=== PATIENT | male | born 1935 | race Caucasian/White ===

== ENCOUNTER → 2017-07-29 12:18 | Outpatient (CLI) | payer MEDICARE, BC, SELFPAY ==
--- NOTE | 2017-07-29 12:32 | RAD_ITS ---
STUDY: X-RAY - ABDOMEN/PELVIS REASON FOR EXAM: Male, 82 years old. 2 month history of mid abdominal pain. TECHNIQUE: Two AP supine views of the abdomen and pelvis. COMPARISON: None. FINDINGS: Normal visualized lung bases. There is a moderate amount of colonic fecal material. The visualized liver, spleen and kidneys are grossly normal in size and morphology. Normal soft tissue structures. Normal visualized osseous structures. RAD/Abdomen Single View IMPRESSION: Moderate amount of fecal material is seen in the colon. Electronically Signed: Abdoulaye Garcia MD at 13:01 EDT Tel [phone], Service support ,
== END ==
LOC: MTRAD 12:27 → HPRAD 12:28
PROVIDERS: Family Provider Internal Medicine; PCP Internal Medicine; Visit Provider Internal Medicine
DX: R10.9 Unspecified abdominal pain (principal)
CPT/HCPCS: 74018

== ENCOUNTER → 2017-10-07 06:11 | Outpatient (CLI) | payer MEDICARE, BC, SELFPAY ==
--- NOTE | 2017-10-07 06:32 | ECHOD_ITS ---
Reason For Study: CAD Procedure This was a 2D Doppler, Color Flow transthoracic echocardiogram. The exam was of adequate technical quality. Exam performed in department. Left Ventricle Normal left ventricle. Left ventricular systolic function is normal. The estimated ejection fraction is 55 %. There is evidence of diastolic dysfunction. No regional wall motion abnormalities noted. Right Ventricle Normal RV size. Normal systolic function. Atria Normal left atrium. Normal right atrium. No doppler evidence for ASD. Mitral Valve There is no mitral annular calcification. Normal mitral valve. Trivial mitral valve insufficiency. Tricuspid Valve Normal tricuspid valve. Trivial tricuspid valve insufficiency. Aortic Valve Trisinus/trileaflet aortic valve. Normal aortic valve. Pulmonic Valve The pulmonic valve is not well visualized. Mild (1+) pulmonic valve insufficiency. Great Vessels Normal sized aortic root. Pericardium/Pleural No pericardial effusion. MMode/2D Measurements & Calculations LVIDd: 4.7 cm IVSd: 1.1 cm Ao root diam: 3.4 cm LVIDs: 2.8 cm LVPWd: 0.98 cm LA dimension: 3.4 cm RVDd: 3.4 cm FS: 41.1 % LAV(MOD-bp): 42.9 ml LA A4 area: 16.0 cm2 RA A4 area: 14.7 cm2 LAV(MOD-bp) Indexed: 20.8 ml/m2 LAV(MOD-sp2): 43.3 ml LAV(MOD-sp4): 41.9 ml Doppler Measurements & Calculations MV E max germán: 81.8 cm/sec Lat Peak E' Germán: 4.9 cm/sec Med Peak E' Germán: 4.9 cm/sec MV A max germán: 94.6 cm/sec E/E' lat: 16.7 E/E' med: 16.7 MV E/A: 0.86 Ao V2 max: 101.8 cm/sec LV V1 max: 81.5 cm/sec PA V2 max: 91.3 cm/sec Ao max P.1 mmHg LV V1 max P.7 mmHg Interpretation Summary Left ventricular systolic function is normal. The estimated ejection fraction is 55 %. Trivial mitral valve insufficiency. Trivial tricuspid valve insufficiency. Mild (1+) pulmonic valve insufficiency. There is evidence of diastolic dysfunction. Ordering Physician: Samia Dominguez Referring Physician: Samia Dominguez Performed By: Saida Denise RDCS
--- NOTE | 2017-10-07 16:56 | STRESSREP ---
Stress Test Report Date: 04/16/2018 Procedure: Exercise tolerance test/imaging study Indications: Lightheadedness; CAD; PCI Consent: Per the patient Procedure: The patient exercised on a Raymond protocol for 6 minutes and 30 seconds completing Stage II and 30 seconds of Stage III achieving a peak heart rate of 122 bpm (88 % predicted maximal heart rate) with a peak blood pressure 166/72 mmHg and a peak MET capacity of 7 METs. The baseline ECG demonstrated normal sinus rhythm. The peak exercise ECG demonstrated somatic/motion artifact with no obvious ECG changes. There were no cardiac dysrhythmias pretest, during exercise, or recovery. The functional capacity was considered good. There was no complaint of chest discomfort during exercise or recovery. The examination was discontinued secondary to dyspnea. Impression: 1. Technically adequate (percent predicted maximal heart rate greater than 85%) exercise tolerance test 2. Peak exercise ECG demonstrated somatic/motion artifact with no obvious ECG changes 3. There were no cardiac dysrhythmias pretest, during exercise, or recovery. 4. Nuclear images pending Myocardial perfusion imaging study: Technique: The patient was injected with 14.1 mCi of technetium 99m Cardiolite and subsequently rest SPECT Cardiolite nuclear imaging was obtained in the horizontal long, vertical long, and short axis views. The patient exercised on a Raymond protocol for 6 minutes and 30 seconds completing Stage II and 30 seconds of Stage III achieving a peak heart rate of 122 bpm (88 % predicted maximal heart rate) with a peak blood pressure 166/72 mmHg and a peak MET capacity of 7 METs. The patient was injected with 44.5 mCi of technetium 99m Cardiolite and subsequently stress SPECT Cardiolite nuclear imaging was obtained in the horizontal long, vertical long, and short axis views. A gated Cardiolite study at peak stress was obtained. Interpretation: Rest and stress SPECT Cardiolite nuclear imaging status post realignment, normalization, and attenuation correction, demonstrates the appearance of relative uniform tracer uptake and myocardial perfusion appearing within normal limits. There is end systolic thickening and brightening. The gated Cardiolite study demonstrates myocardial thickening and inward wall motion. The reported LVEF is 70 %. Impression: 1. Rest and stress SPECT Cardiolite nuclear imaging demonstrate relative uniform tracer uptake and myocardial perfusion appearing within normal limits. 2. The gated Cardiolite study reports an LVEF of 70 %. This note was generated with [employer] software. It may contain incorrect words, spelling, and punctuation that were not noted in checking the note before signing.
--- NOTE | 2017-10-07 17:02 | STRESSREP_ITS ---
Stress Test Report Date: 04/16/2018 Procedure: Exercise tolerance test/imaging study Indications: Lightheadedness; CAD; PCI Consent: Per the patient Procedure: The patient exercised on a Raymond protocol for 6 minutes and 30 seconds completing Stage II and 30 seconds of Stage III achieving a peak heart rate of 122 bpm (88 % predicted maximal heart rate) with a peak blood pressure 166/72 mmHg and a peak MET capacity of 7 METs. The baseline ECG demonstrated normal sinus rhythm. The peak exercise ECG demonstrated somatic/motion artifact with no obvious ECG changes. There were no cardiac dysrhythmias pretest, during exercise, or recovery. The functional capacity was considered good. There was no complaint of chest discomfort during exercise or recovery. The examination was discontinued secondary to dyspnea. Impression: 1. Technically adequate (percent predicted maximal heart rate greater than 85% ) exercise tolerance test 2. Peak exercise ECG demonstrated somatic/motion artifact with no obvious ECG changes 3. There were no cardiac dysrhythmias pretest, during exercise, or recovery. 4. Nuclear images pending Myocardial perfusion imaging study: Technique: The patient was injected with 14.1 mCi of technetium 99m Cardiolite and subsequently rest SPECT Cardiolite nuclear imaging was obtained in the horizontal long, vertical long, and short axis views. The patient exercised on a Raymond protocol for 6 minutes and 30 seconds completing Stage II and 30 seconds of Stage III achieving a peak heart rate of 122 bpm (88 % predicted maximal heart rate) with a peak blood pressure 166/72 mmHg and a peak MET capacity of 7 METs. The patient was injected with 44.5 mCi of technetium 99m Cardiolite and subsequently stress SPECT Cardiolite nuclear imaging was obtained in the horizontal long, vertical long, and short axis views. A gated Cardiolite study at peak stress was obtained. Interpretation: Rest and stress SPECT Cardiolite nuclear imaging status post realignment, normalization, and attenuation correction, demonstrates the appearance of relative uniform tracer uptake and myocardial perfusion appearing within normal limits. There is end systolic thickening and brightening. The gated Cardiolite study demonstrates myocardial thickening and inward wall motion. The reported LVEF is 70 %. Impression: 1. Rest and stress SPECT Cardiolite nuclear imaging demonstrate relative uniform tracer uptake and myocardial perfusion appearing within normal limits. 2. The gated Cardiolite study reports an LVEF of 70 %. This note was generated with [employer] software. It may contain incorrect words, spelling, and punctuation that were not noted in checking the note before signing.
== END ==
PROVIDERS: Family Provider Internal Medicine; PCP Internal Medicine; Visit Provider Internal Medicine
DX: I25.10 Atherosclerotic heart disease of native coronary artery without angina pectoris (principal); R68.89 Other general symptoms and signs; R42 Dizziness and giddiness
CPT/HCPCS: 78452; 93017; 93306; A9500; A4216

== ENCOUNTER → 2017-10-21 10:53 | Outpatient (CLI) | payer MEDICARE, BC, SELFPAY ==
[2017-10-21 11:09] LABS: Absolute Neutrophil Count 3.1 X10^3/uL (2.0-7.7); Basophil# 0.01 X10^3/uL; Basophil% 0.2 % (0-1); Eosinophil# 0.13 X10^3/uL; Eosinophils% 2.6 % (0-5); Hematocrit 40.6 % (40-54); Hemoglobin 13.3 g/dl (13.0-16.5); Lymphocyte % 24.1 % (19-41); Mean Corp Hgb Conc 32.8 g/gl (32-36); Mean Corpuscular Hgb 29.2 pg (27.0-32.0); Mean Corpuscular Volume 89.2 fL (80-94); Mean Platelet Vol. 9.8 fl (6.2-12.0); Monocyte% 10.1 % (0-10); Neutrophil # 3.12 X10^3/uL (2.7-7.7); Neutrophil % 62.8 % (47-70); POSITIVE COUNT NO; POSITIVE DIFFERENTIAL NO; POSITIVE MORPHOLOGY NO; Platelet Count 162 K/mm3 (150-450); RBC Distribution Width CV 13.4 % (11.6-14.6); RBC Distribution Width SD 43.8 fl (35.1-43.9); Red Blood Count 4.55 M/mm3 (4.6-6.2)
[2017-10-21 11:10] LABS: Erythrocyte Sedimentation Rate 8 mm/hr (0-20)
[2017-10-21 11:26] LABS: ALB/GLOB Ratio 0.9 RATIO (0.9-2.4); AST(SGOT) 21 U/L (15-37); Alanine Aminotransfer ALT/SGPT 30 U/L (16-61); Albumin, Serum 3.5 g/dL (3.2-5.0); Alkaline Phosphatase 59 U/L (45-117); Anion Gap 9 (5-15); BUN 16 mg/dL (7-18); BUN/Creat Ratio 15.8 RATIO (10-20); Calcium,Total 8.7 mg/dL (8.5-10.1); Chloride 105 mmol/L (98-107); Creatinine, Serum 1.01 mg/dL (0.70-1.30); EST Glomerular Filtration Rate 75 mL/min (>60); Est Glom Filt Rate - Afr Amer 91 mL/min (>60); Globulin 3.8 g/dL (2.2-4.2); Glucose 78 mg/dL (74-106); Potassium 3.7 mmol/L (3.5-5.1); Protein, Total 7.3 g/dL (6.4-8.2); Sodium Level 144 mmol/L (136-145)
== END ==
PROVIDERS: Family Provider Internal Medicine; PCP Internal Medicine; Visit Provider Internal Medicine
DX: K57.92 Diverticulitis of intestine, part unspecified, without perforation or abscess without bleeding (principal)
CPT/HCPCS: 80053; 85025; 85652; 86140

== ENCOUNTER 2018-01-16 08:50 | Day surgery (SDC) | payer MEDICARE, BC, SELFPAY ==
[2018-01-16 09:18] VITALS: BP 130/73; PULSE 58; RESP 16; TEMP 36.2; O2SAT 100; BMI 30.3
[2018-01-16 10:47] VITALS: BP 107/55; BP 130/73; PULSE 55; RESP 14; TEMP 36.4; O2SAT 96
[2018-01-16 10:50] VITALS: BP 100/53; BP 130/73; PULSE 55; RESP 16; O2SAT 97
--- NOTE | 2018-01-16 10:50 | OP.ENDO_ITS ---
Patient Name: Moises Ahuja Procedure Date: 01/16/2018 10:15 AM Date of : 1935 Age: 82 Procedure: Colonoscopy Indications: Surveillance: Personal history of adenomatous polyps on last colonoscopy > 3 years ago, Incidental - Recurrent Clostridium difficile colitis, Incidental - Follow-up of diverticulitis Providers: Mehdi Foote MD Referring MD: Samia Dominguez Medicines: Monitored Anesthesia Care Patient Profile: Last Colonoscopy: more than 3 years ago. Complications: No immediate complications. Procedure: Pre-Anesthesia Assessment: - Prior to the procedure, a History and Physical was performed, and patient medications and allergies were reviewed. The patient's tolerance of previous anesthesia was also reviewed. The risks and benefits of the procedure and the sedation options and risks were discussed with the patient. All questions were answered, and informed consent was obtained. Prior Anticoagulants: The patient has taken aspirin, last dose was 5 days prior to procedure. After reviewing the risks and benefits, the patient was deemed in satisfactory condition to undergo the procedure. After I obtained informed consent, the scope was passed under direct vision. Throughout the procedure, the patient's blood pressure, pulse, and oxygen saturations were monitored continuously. The colonoscope was introduced through the anus and advanced to the cecum, identified by appendiceal orifice and ileocecal valve. The colonoscopy was performed without difficulty. The patient tolerated the procedure well. The quality of the bowel preparation was good. Scope In: 10:27:08 AM Scope Withdrawal Time 0 hours 6 minutes 59 seconds Scope Out: 10:41:16 AM Total Procedure Duration Time 0 hours 14 minutes 8 seconds Findings: Multiple small and large-mouthed diverticula were found in the sigmoid colon and descending colon. No additional abnormalities were found on retroflexion. Impression: - Diverticulosis in the sigmoid colon and in the descending colon. - No specimens collected. Recommendation: - Discharge patient to home. - Resume previous diet. - Continue present medications. - Resume aspirin at prior dose tomorrow. - No recommendation at this time regarding repeat colonoscopy due to age. Procedure Code(s): --- Professional --- 31761, PT, Colonoscopy, flexible; diagnostic, including collection of specimen(s) by brushing or washing, when performed (separate procedure) Diagnosis Code(s): --- Professional --- Z86.010, Personal history of colonic polyps K57.30, Diverticulosis of large intestine without perforation or abscess without bleeding CPT copyright 2017 [employer]. All rights reserved. The codes documented in this report are preliminary and upon wheel shop supervisor review may be revised to meet current compliance requirements. Mehdi Foote MD 01/16/2018 10:49:47 AM This report has been signed electronically. Number of Addenda: 0 Note Initiated On: 01/16/2018 10:15 AM
[2018-01-16 11:00] VITALS: BP 105/54; BP 130/73; PULSE 50; RESP 16; O2SAT 96
[2018-01-16 11:04] VITALS: BP 105/59; BP 130/73; PULSE 52; RESP 16; TEMP 36.4; O2SAT 97
[2018-01-16 11:27] VITALS: BP 130/73
== END 2018-01-16 11:38 | disposition home or self-care (01) ==
LOC: EN 08:50 → AC 08:51
PROVIDERS: Family Provider Internal Medicine; PCP Internal Medicine; Visit Provider Surgery
PROC: 0DJD8ZZ Inspection of Lower Intestinal Tract, Via Natural or Artificial Opening Endoscopic (ICD-10-PCS; CPT 45378; principal; 2018-01-16 09:55)
DX: Z12.11 Encounter for screening for malignant neoplasm of colon (principal); A04.71 Enterocolitis due to Clostridium difficile, recurrent; K57.30 Diverticulosis of large intestine without perforation or abscess without bleeding; I25.10 Atherosclerotic heart disease of native coronary artery without angina pectoris; I34.1 Nonrheumatic mitral (valve) prolapse; I10 Essential (primary) hypertension; E78.5 Hyperlipidemia, unspecified; K21.9 Gastro-esophageal reflux disease without esophagitis; F32.9 Major depressive disorder, single episode, unspecified; F41.9 Anxiety disorder, unspecified; Z79.82 Long term (current) use of aspirin; Z79.899 Other long term (current) drug therapy; Z86.010 Personal history of colon polyps; Z87.891 Personal history of nicotine dependence; Z80.0 Family history of malignant neoplasm of digestive organs
CPT/HCPCS: 45378; J7120

== ENCOUNTER 2018-03-03 13:00 | Outpatient (RCR) | payer MEDICARE, BC, SELFPAY ==
--- NOTE | 2018-02-17 11:43 | HP.PTEVAL_ITS ---
Patient's Visit Information ANTONETTE HARRIS is a 82 year old M referred to Physical Therapy by CORTES HILL with a diagnosis of c/s radiculopathy. Date of Evaluation: 02/17/18 Physical Therapist: Ashok Nolasco DPT, OC - Visit Plan Frequency: 2x /Week Duration: 2 Weeks Plan: 2x/week for two weeks per script for... 1. c/s retraction and postural exercises, progressing HEP. 2. STM to B UT,s tretch pecs. 3. Manual traction to tolerance. Monitor L tri adn bi weakness. - Subjective Subjective: Stenosis in back and neck. Has given him pain in center of base of neck. Sometimes radiates into L arm to elbow. this is insidious and lasts 30 seconds. Got it this morning putting tea kettle on stove. Neck hurts much of day 2-07/05. Goes up to 8/10 shooting pain with turning wrong. this has been going on for 6 months insidiously. Had MRI and it showed stenosis and narrwoing in the neck. Pinching on c5 nerve. Numbness in L hand quickly when arm hurts. Sleep is OK. Sleeps on his back. He doesn't let this hold him back, he hurts and keeps going. Basic ADLs are OK just painful. 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 Driving and turning head hurts but he can do it. - Pain neck Pain Intensity (Out of 10): 2 Pain Intensity Range: 2, 8 L UE Pain Intensity (Out of 10): 0 Pain Intensity Range: 0, 8 - Objective Sits with forward head and tight scap with tension. Scapula are protracted. UE AROM WFL to 130 elevation, ext rotation 60a nd IR full adn without pain, elevation hurts slightly L c/s. reflexes 2/3 bi and tri. Sensation WNL in UE to gross light touch. Strenght is at deficiti in L wrist flex and ext adn bi and tri 4-, others 4/5 in shoulder. + c/s compression test B. - HK and - neer. repeated protrusion increases L UE numbness adn worse pain to 3/10. repeated retraction NE. Trasnfers adn gait are normal and safe. Tender to palpation base of c/s in Upper traps B max. - Goals Goal 1:: Pain with ADLs is 90% better adn 1/10 at worse. Goal Time Frame: 2-4 Weeks Goal 2:: Patient I in appropriate posture and HEP to minimize future problems. Goal Time Frame: 2-4 Weeks - Rehabilitation Potential Physical Therapy Diagnosis: cervical stenosis adn radiculapathy Rehabilitation Potential: Fair - Anticipated Interventions Patient/Client Instruction: Educate patient on: Condition, Plan of Care For the Purpose of:: To decrease pain Therapeutic Exercise to Include: Strength training, Flexibilty training, Scapular Strength/Stabilization For the Purpose of:: To decrease pain, To improve nutrient delivery to tissue, To increase tolerance to activity/condition/position Manual Therapy Techniques to Include: Soft tissue mobilization Comment: B UT For the Purpose of:: To decrease pain, To improve nutrient delivery to tissue Thermo therapy (hot pack): Yes For the Purpose of:: To improve nutrient delivery to tissue Thank you for the opportunity to evaluate your patient. For Medicare and Medicare HMO plans, please review the plan of care and approve it. It will need to be FAXED BACK to us at [phone] for Medicare purposes. Please let me know if there are questions or concerns regarding this plan of care. Physician S ignature: Date:
--- NOTE | 2018-03-03 13:59 | HP.PTDCSUM ---
HP - PT D/C Summary It has been my pleasure to treat ANTONETTE HARRIS under orders from CORTES HILL, for the diagnosis of c/s radiculopathy for a total of 5 visit(s). Discharge Date: 03/03/18 Please see the following information for a summary of their discharge status. - Subjective Subjective: L trap still sore but much better overall. Remains 2/10 at most times. Head is moving better. Arm symptoms mostly sharp with position change and then gone. Will see dr. Fisher on for neck and shoulder pain. - Pain neck Pain Intensity (Out of 10): 2 L UE Pain Intensity (Out of 10): Unrated - Overall Improvement % Improvement: 40 - Objective Objective/Function: 50 R rot adn 50 L rot and 40 ext. 140 AROM L shoulder elevation, pain at end range actively and passively of ext rot, IR, adn elevation of shoulder. Makes me question shoulder degeneration as main cause of pain. Pt will continue HEP and go to orthopedic doctor on as directed. - Goals Goal 1:: Pain with ADLs is 90% better adn 1/10 at worse. Goal Progress: Progressing Goal 2:: Patient I in appropriate posture and HEP to minimize future problems. Goal Progress: Goal Met - Plan Plan: D/C - D/C Information Discharge Comments: Pt to go to ortho as directed by doctor for next step. may benefit from continued PT after shoulder is evaluated by ortho. If there are questions or concerns regarding this patient's physical therapy, please feel free to call me at [phone]. Thank you for the referral of this patient. Sincerely, Ashok Nolasco, DPT, OC
== END 2018-03-03 19:00 | disposition home or self-care (01) ==
LOC: PT 13:00
PROVIDERS: Family Provider Internal Medicine; PCP Internal Medicine
DX: M50.30 Other cervical disc degeneration, unspecified cervical region (principal); M48.02 Spinal stenosis, cervical region; M54.12 Radiculopathy, cervical region
CPT/HCPCS: 97110; 97140; 97162; 97530

== ENCOUNTER → 2018-03-11 08:45 | Outpatient (CLI) | payer MEDICARE, BC, SELFPAY ==
--- NOTE | 2018-03-11 09:00 | RAD_ITS ---
PROCEDURE: Fluoroscopic guided shoulder Injection DATE: March 11, 2018. INDICATION: Male, 83 years old. Chronic left shoulder pain. PHYSICIAN: Abdoulaye Garcia M.D. MEDICATIONS: 12 mg of betamethasone and 4 cc of 1% lidocaine. 2% Lidocaine administered subcutaneously for local anesthesia. ACCESS SITE: Left shoulder. NEEDLE: 22-gauge spinal needle. FLUOROSCOPY TIME (if supplied): (0:47) minutes/seconds FINDINGS: The risks, benefits, and alternatives to the procedure were explained to the patient. The specific risks of bleeding, infection, and neurovascular injury were detailed and accepted. Witnessed informed consent was obtained. A 22-gauge spinal needle was positioned under radiographic fluoroscopic localization. Approximately 2 cc of Isovue-300 instilled for localization purposes. Medication was then injected. The patient tolerated the procedure well without any immediate complications. The patient was placed supine with head elevated and returned to the floor in stable condition. RAD/Inj/Asp Reza Jt Should/Hip/Knee IMPRESSION: 1. Successful fluoroscopic guided left shoulder injection. Electronically Signed: Abdoulaye Garcia MD at 9:42 EST Tel [phone], Service support ,
== END ==
PROVIDERS: Family Provider Internal Medicine; PCP Internal Medicine; Visit Provider Specialist
DX: M19.012 Primary osteoarthritis, left shoulder (principal); G89.29 Other chronic pain
CPT/HCPCS: 20610; 77002; Q9967; J0702

== ENCOUNTER → 2018-03-24 09:46 | Outpatient (CLI) | payer MEDICARE, BC, SELFPAY ==
--- NOTE | 2018-03-24 09:55 | CDU_ITS ---
Reason For Study: carotid stenosis Rt. Velocities/BP Lt. Velocities/BP Prox CCA 119.0/14.9 cm/sec. Prox CCA 116.0/15.8 cm/sec. Mid CCA 120.0/19.6 cm/sec. Mid CCA 113.0/14.7 cm/sec. Dist CCA 86.4/18.1 cm/sec. Dist CCA 117.0/16.4 cm/sec. Prox ICA 61.6/15.2 cm/sec. Prox ICA 80.3/14.1 cm/sec. Mid ICA 149.0/34.4 cm/sec. Mid ICA 137.0/27.5 cm/sec. Dist ICA 152.0/35.4 cm/sec. Dist ICA 86.2/22.3 cm/sec. Rt. ICA/CCA = 152.0/120.0=1.3. Lt. ICA/CCA = 137.0/113.0=1.2. Prox ECA 111.0/10.2 cm/sec. Prox ECA 151.0/8.64 cm/sec. Rt. Vert. 46.0/11.4 cm/sec. Lt. Vert. 60.5/12.2 cm/sec. Right Extracranial There is intimal thickening but no significant atherosclerotic plaque noted in the right common carotid artery. There is intimal thickening but no significant atherosclerotic plaque noted in the right internal carotid artery. The right internal carotid artery is very tortuous. There is no significant atherosclerotic plaque noted in the right external carotid artery. Antegrade flow is noted in the right vertebral artery. Left Extracranial There is homogeneous, smooth atherosclerotic plaque noted in the left common carotid artery. There is heterogeneous, irregular atherosclerotic plaque noted in the left internal carotid artery. The tortuous nature of the left internal carotid artery may result in flow velocities overestimating the degree of stenosis. There is no significant atherosclerotic plaque noted in the left external carotid artery. Antegrade flow is noted in the left vertebral artery. Interpretation Summary Moderate (50-69%) stenosis right extracranial internal carotid. Moderate (50-69%) stenosis left extracranial internal carotid. Flow within the vertebral arteries is antegrade bilaterally. Ordering Physician: Samia Dominguez Referring Physician: Samia Dominguez Performed By: Simran Perales RDCS, RVT
--- OUTSIDE RECORDS SUMMARY | 2018-05-05 23:53 | XMS RPT_ITS | Continuity of Care Document ---
:1935 Author Organization [facility] Address [address] [place] [address] Phone Care Team Providers Name Role Phone Alberto HARRY, Samia Villalba Unavailable Claudia Dutton Unavailable Unavailable Julito HARRY, Dr. Jennings Unavailable [facility], Gustavo Mayo Unavailable Mehdi Foote Unavailable Dr. Gallo Fraser MD Unavailable ABDIEL Dutta Unavailable Unavailable Unavailable Unavailable Problems Name Dates Details Abnormality of globulin (R77.1, 790.6) Comments: globulin beta slightly elevated no mspike. marquez immuno good IGA up slightly but ill. Status: Active Arthritis (M19.90, 716.90) Status: Active BMI 31.0-31.9,adult (Z68.31, V85.31) Comments: 31.94 Status: Active BMI 32.0-32.9,adult (Z68.32, V85.32) Comments: 32.0 Status: Active BMI 32.0-32.9,adult (Z68.32, V85.32) Status: Active Carotid stenosis (I65.29, 433.10) Comments: <50% right falsely higher. 10-13, CTA neck 3-16, moderate 7-17 Status: Active Constipation (K59.00, 564.00) Comments: see retained stool in colon. now worse. with some abd pain will clean out Status: Active Coronary artery disease (I25.10, 414.00) Comments: stress 10-13 good. seesara horvath reviewed with patient specialist's note stable 6-18 done stress test sand echo good. feel better fatigue and exerc. 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 ballard not want to do surgery risky. mboic help pain. see Dr. kapoor ? related to vertigo repeat MRI 10-18 moderate stenosis C5-6 Status: Active Depression, unspecified depression type (F32.9, 311) Comments: right now unhapppy issue wtih strong personality. nitpick on him. communicate well with now and backingoff. and him not babysitting anymore and willbe hard on talk to he r about setting boundaries. still will have some depressed moods where not want anyone to bother him twice a week. use to love to read but not interested to do thing liked to do. will try to increase 1 1/2 lexapro not want to add wellbutrin or g to scounselor Status: Active Diarrhea (R19.7, 787.91) Status: Active Diverticulitis (K57.92, 562.11) Status: Active Elevated vitamin B12 level (R74.8, 790.99) Comments: ? inflammation had stomach pain better now. will recheck Status: Active Encounter for well adult exam with abnormal findings (Z00.01, V70.0) Comments: 4--18 Annual Medicare Exam [facility] 10-31- rectal , PSA 4-17 (will draw today) colonoscopy -18 good, all immunizations are up to date, last eye exam 2017 included glaucoma screening, unable to pass whisper test wears bilateral hearing aides, 6CIT=/28, PHQ-9=8 (mild),PHQ-9=/28 Status: Active Epididymitis (N45.1, 604.90) Comments: think possible infection very tender could be referred down from abdomen but the epididymis is very tender. same sexual partner Status: Active Esophagitis (K20.9, 530.10) Comments: seen on CT hiatal hernia on PPI had soem pain now gone. EGD done 3-17 good Status: Active Exercise intolerance (R68.89, 780.99) Comments: heydi heart Status: Active Fatigue (R53.83, 780.79) Comments: ishmael muñiz change in bbkler and off pravastatin. Status: Active Flu-like symptoms (R68.89, 780.99) Status: Active History of Clostridium difficile infection (Z86.19, V12.09) Comments: on probiotic and eating kefir Status: Active Hypertension, benign (I10, 401.1) Status: Active Impaired fasting glucose (R73.01, 790.21) Comments: stable hga1c 5.7 % talk about diet. Status: Active 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 (N52.9, 302.72) Comments: talk about viagra tell side effects and what to watch for. 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 6-14, 8-15, 6-16 stable no change not need to image anymore Status: Active Mild degeneration of cervical intervertebral disc (M50.30, 722.4) Comments: seen Dr. madsen. gabapentin cause hiccups so bad BP went up. refuse lyrica. att TCa if okay with Dr. horvath. brielle in past. saw Dr. kapoor not needs anything now doing well Status: Active Mitral valve prolapse (I34.1, 424.0) Status: Active Mixed hyperlipidemia (E78.2, 272.2) Comments: lipitor cause headache and head worms. with pravastatin andbut off it had calf cramps anyway.not able to tolerate increase. has been exerciseing. talk about fish oil. on fish oil in reli Status: Active Need for prophylactic vaccination and inoculation against influenza (Renamed from Need for immunization against influenza) (Z23, V04.81) Status: Active Obesity (E66.9, 278.00) Status: Active Obstructive sleep apnea, adult (G47.33, 327.23) Comments: on BIPAP Status: Active Orthostatic hypotension (I95.1, 458.0) Status: Active Rhinitis, chronic (J31.0, 472.0) Comments: think allergies ? 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 glucoffect help in am alos Status: Active Urgency of micturition (R39.15, 788.63) Comments: meds help Status: Active Vertigo (R42, 780.4) Comments: in past had BPPV and then now think repeat. if any neuro signs and symptoms then call seem like BPPV yesika exercises to do. hob up for 48 hours then can use bonine Status: Active Vitamin D deficiency, unspecified (E55.9, 268.9) 24-Dec-2011 Comments: on otc. Status: Active Medications Name Dates Details AmLODIPine Besylate 2.5 MG Oral Tablet 1 (one) Tablet daily for 0 days Quantity: 90 {Tablet} Refills: 3 Ordered:09-Feb-2018 Samia Dominguez MD, MD, Dana M Start : 09-Feb-2018 Active ASPIRIN LOW DOSE, 81MG (Oral Tablet) 1 AM for 0 days Refills: 0 Ordered:20-Mar-2009 ABDIEL DuttaActive Flonase Allergy Relief 50 MCG/ACT Nasal Suspension 1 (one) Suspension Suspension 2 sprays each nosstril daily for 0 days Quantity: 1 {Each} Refills: 0 Ordered:30-Sep-2016 ABDIEL Dutta Start : 30-Sep-2016 Active Lexapro 10 MG Oral Tablet 1 1/2 Tablet qd for 90 days Refills: 3 Ordered:09-Feb-2018 Samia Dominguez MD, MD, Dana M Start : 09-Feb-2018 Active Comments:ID# [id number] Meclizine HCl 12.5 MG Oral Tablet 1 (one) Tablet every 6 hours prn vertigo for 0 days Quantity: 30 {Tablet} Refills: 0 Ordered:17-Mar-2018 Samia Dominguez MD, MD, Dana M Start : 17-Mar-2018 Active Meloxicam 7.5 MG Oral Tablet 1 (one) Tablet qd for 0 days Quantity: 30 {Tablet} Refills: 3 Ordered:09-Feb-2018 Samia Dominguez MD, MD, Dana M Start : 09-Feb-2018 Active Pravastatin Sodium 20 MG Oral Tablet 1 (one) Tablet in am for 0 days Quantity: 90 {Tablet} Refills: 3 Ordered:09-Feb-2018 Samia Dominguez MD, MD, Dana M Start : 09-Feb-2018 Active Comments:myalgia PRILOSEC, 20MG (Oral Capsule Delayed Release) [address] qd for 0 days Quantity: 90 {Capsule_DR} Refills: 3 Ordered:14-Jul-2015 Samia Dominguez MD, MD, Dana M Start : 14-Jul-2015 Active Primidone 50 MG Oral Tablet 1/2 Tablet Tablet qhs for 0 days Quantity: 45 {Tablet} Refills: 3 Ordered:31-Oct-2017 Samia Dominguez MD, MD, Dana M Start : 31-Oct-2017 Active Reliv Active Vitamin D3 Super Strength 2000 UNIT Oral Capsule 1 (one) Capsule Capsule in am for 0 days Quantity: 30 {Tablet} Refills: 0 Ordered:07-Feb-2017 Winter Estevez Start : 22-Oct-2016 Active ALIGN, 4MG (Oral Capsule) 1 Capsule daily for 0 days Quantity: 30 {Capsule} Refills: 0 Ordered:17-Jun-2011 ABDIEL Dutta Start : 23-Apr-2011 End : 17-Jun-2011 Inactive Amitriptyline HCl 50 MG Oral Tablet 1 (one) Tablet at night for 0 days Quantity: 30 {Tablet} Refills: 0 Ordered:30-Jul-2017 Samia Dominguez MD, MD, Dana M Start : 30-Jul-2017 End : 30-Jul-2017 Inactive Comments:07-30-17 per over phone not taking ANTIVERT, 12.5MG (Oral Tablet) 1 Tablet 6-8hrs prn for dizziness for 0 days Quantity: 30 {Tablet} Refills: 0 Ordered:08-Feb-2013 ABDIEL Dutta Start : 11-Jan-2013 End : 08-Feb-2013 Inactive Ativan 0.5 MG Oral Tablet 1 (one) Tablet Tablet 1-2 every 8 hour prn for 0 days Quantity: 20 {Tablet} Refills: 0 Ordered:30-Jul-2017 ABDIEL Dutta Start : 26-Nov-2013 End : 30-Jul-2017 Inactive Comments:twenty Bactrim DS 800-160 MG Oral Tablet 1 Tablet bid for 10 days Quantity: 20 {Tablet} Refills: 0 Ordered:25-Apr-2017 Alberto HARRY, Samia Atkins MD, Samia Villalba Start : 25-Apr-2017 End : 05-May-2017 Inactive Comments:pt will call if needs void after 30 days. BENTYL, 10MG (Oral Capsule) 1 (one) Capsule Capsule tid prn for 0 days Quantity: 20 {Capsule} Refills: 0 Ordered:26-Nov-2013 ABDIEL Dutta Start : 03-Sep-2013 End : 26-Nov-2013 Inactive Comments:twenty Cipro 500 MG Oral Tablet Tablet BID for 0 days Quantity: 28 {Tablet} Refills: 0 Ordered:19-Sep-2017 ABDIEL Dutta Start : 30-Jul-2017 End : 19-Sep-2017 Inactive CORICIDIN HBP COUGH/COLD, 4-30MG (Oral Tablet) 1 (one) Tablet Tablet TAD for 0 days Quantity: 30 {Tablet} Refills: 0 Ordered:26-Nov-2013 ABDIEL Dutta Start : 30-Jul-2013 End : 26-Nov-2013 Inactive Cyclobenzaprine HCl 10 MG Oral Tablet 1 (one) Tablet Tablet every 8 hours prn for 0 days Quantity: 20 {Tablet} Refills: 0 Ordered:22-Jan-2016 ABDIEL Dutta Start : 10-Jan-2015 End : 22-Jan-2016 Inactive Comments:twenty ENABLEX, 7.5MG (Oral Tablet Extended Release 24 Hour) 1 Tablet ER 24HR daily for 0 days Quantity: 90 {Tablet_ER_24HR} Refills: 3 Ordered:09-Aug-2010 ABDIEL Dutta Start : 09-Aug-2010 End : 09-Aug-2010 Inactive HYDROCHLOROTHIAZIDE, 25MG (Oral Tablet) 1 (one) Tablet qd for 0 days Quantity: 90 {Tablet} Refills: 3 Ordered:08-Feb-2013 ABDIEL Dutta Start : 01-May-2012 End : 08-Feb-2013 Inactive Comments:ID# [id number] HYDROCODONE-ACETAMINOPHEN, 5-325MG (Oral Tablet) 1 (one) Tablet 1-2 q6hrs prn for 0 days Quantity: 30 {Tablet} Refills: 0 Ordered:26-Nov-2013 Alberto HARRY, Samia Atkins MD, Samia Villalba Start : 26-Nov-2013 End : 26-Nov-2013 Inactive KETOROLAC TROMETHAMINE, 10MG (Oral Tablet) 1 Tablet q6hrs for 2 days Quantity: 8 {Tablet} Refills: 0 Ordered:31-Dec-2011 Tashiamaggynichole BROWNAprana Start : 31-Dec-2011 End : 02-Jan-2012 Inactive Comments:with food and drink 1 full glass of water LevoFLOXacin 500 MG Oral Tablet 1 Tablet daily for 0 days Quantity: 10 {Tablet} Refills: 0 Ordered:31-Oct-2017 ABDIEL Dutta Start : 21-Oct-2017 End : 31-Oct-2017 Inactive LIDODERM, 5% (External Patch) Patch 12 hours on for 0 days Refills: 0 Ordered:11-May-2009 ABDIEL Dutta Start : 20-Mar-2009 Inactive LISINOPRIL, 10MG (Oral Tablet) 1 qd (10 MG) Inactive Comments:Dr. Horvath Losartan Potassium 50 MG Oral Tablet 1 (one) Tablet daily for 0 days Quantity: 90 {Tablet} Refills: 3 Ordered:19-Jan-2018 ABDIEL Dutta Start : 16-Oct-2017 End : 19-Jan-2018 Inactive LYRICA, 50MG (Oral Capsule) 1 Capsule bid for 0 days Quantity: 60 {Capsule} Refills: 1 Ordered:24-Mar-2012 ABDIEL Dutta Start : 24-Dec-2011 End : 24-Mar-2012 Inactive MEDROL (KAREN), 4MG (Oral Tablet) 1 Tablet Tablet uad for 0 days Quantity: 1 {Package} Refills: 0 Ordered:08-Dec-2014 ABDIEL Dutta Start : 26-Nov-2013 End : 08-Dec-2014 Inactive Metoprolol Tartrate 25 MG Oral Tablet 1/2 Tablet Tablet at night for 0 days Quantity: 30 {Tablet} Refills: 0 Ordered:09-Feb-2018 ABDIEL Dutta Start : 26-Sep-2017 End : 09-Feb-2018 Inactive MetroNIDAZOLE 500 MG Oral Tablet 1 (one) Tablet tid for 0 days Quantity: 30 {Tablet} Refills: 0 Ordered:31-Oct-2017 ABDIEL Dutta Start : 21-Oct-2017 End : 31-Oct-2017 Inactive MIRTAZAPINE, 30MG (Oral Tablet) 1 Tablet 1/2 a day for 1 week at night then one at night for 0 days Quantity: 30 {Tablet} Refills: 3 Ordered:16-Dec-2011 ABDIEL Dutta Start : 14-Oct-2011 End : 16-Dec-2011 Inactive Oxybutynin Chloride ER 10 MG Oral Tablet Extended Release 24 Hour 1 (one) Tablet Tablet in am prn for 0 days Quantity: 30 {Tablet} Refills: 0 Ordered:30-Jul-2017 ABDIEL Dutta Start : 06-Dec-2016 End : 30-Jul-2017 Inactive PREVACID, 30MG (Oral Capsule Delayed Release) 1 qd for 0 days Refills: 0 Ordered:17-Jun-2011 ABDIEL Dutta End : 17-Jun-2011 Inactive PROPRANOLOL HCL, 10MG (Oral Tablet) 1 Tablet bid for 0 days Quantity: 180 {Tablet} Refills: 3 Ordered:08-Feb-2013 ABDIEL Dutta Start : 08-Jun-2012 End : 08-Feb-2013 Inactive RAPAFLO, 8MG (Oral Capsule) 1 qd (8 MG) Inactive Tamiflu 75 MG Oral Capsule 1 (one) Capsule twice a day for 5 days Quantity: 10 {QS} Refills: 0 Ordered:25-Apr-2017 Mariaa Goetz Start : 25-Apr-2017 End : 30-Apr-2017 Inactive TRIAMCINOLONE ACETONIDE, 0.5% (External Cream) 1 Cream bid for 0 days Quantity: 1 {Cream} Refills: 0 Ordered:16-Dec-2011 ABDIEL Dutta Start : 29-Oct-2011 End : 16-Dec-2011 Inactive Viagra 100 MG Oral Tablet 1 (one) Tablet Tablet before intercourse prn for 0 days Quantity: 10 {Tablet} Refills: 2 Ordered:30-Jul-2017 ABDIEL Dutta Start : 22-Oct-2016 End : 30-Jul-2017 Inactive Zithromax Z-Karen 250 MG Oral Tablet uad Tablet until gone for 0 days Quantity: 1 {Package} Refills: 0 Ordered:25-Apr-2017 ABDIEL Dutta Start : 13-Feb-2017 End : 25-Apr-2017 Inactive CITALOPRAM HYDROBROMIDE, 20MG (Oral Tablet) 1 Tablet qd for 999 days Refills: 0 Ordered:02-Jul-2010 Samia Dominguez MD, MD, Dana M Start : 02-Jul-2010 End : 02-Jul-2010 Discontinued DETROL LA, 2MG (Oral Capsule Extended Release 24 Hour) 1 Capsule ER 24HR qd for 0 days Quantity: 90 {Capsule_ER_24HR} Refills: 3 Ordered:02-Jul-2010 Samia Dominguez MD, MD, Dana M Start : 02-Jul-2010 End : 02-Jul-2010 Discontinued INDERAL, 10MG (Oral Tablet) 1 Tablet BID for 0 days Quantity: 180 {Tablet} Refills: 3 Ordered:07-Aug-2009 ABDIEL Dutta Start : 07-Aug-2009 End : 17-Jun-2011 Discontinued Comments:This order discontinued per [facility]. LIPITOR, 10MG (Oral Tablet) 1 Tablet qhs for 0 days Quantity: 90 {Tablet} Refills: 3 Ordered:28-Jun-2015 Samia Dominguez MD, MD, Dana M Start : 28-Jun-2015 End : 14-Jul-2015 Discontinued Toprol XL 25 MG Oral Tablet Extended Release 24 Hour 1 (one) Tablet in am for 0 days Quantity: 30 {Tablet} Refills: 0 Ordered:26-Sep-2017 Samia Dominguez MD, MD, Dana M Start : 26-Sep-2017 End : 26-Sep-2017 Discontinued Allergies and Adverse Reactions Name Dates Details Cipro *FLUOROQUINOLONES* (Allergy) Status: Active Comments: stomach sick, levaquin okay KETOCONAZOLE (Powder) (Allergy) Status: Active Penicillins (Allergy) Status: Active PREDNISONE (PO Tab) (Allergy) Status: Active Comments: Jittery & anxious Past Medical History Name Dates Details Abdominal pain (R10.9, 789.00) Comments: think related to constipated. if not better with clean out then will need CT scan. Status: Resolved as of 30-Jul-2017 Abdominal pain, acute, left lower quadrant (R10.32, 789.04) Status: Inactive as of 16-Jul-2012 Abdominal pain, acute, left upper quadrant (R10.12, 789.02) Status: Resolved as of 24-Dec-2011 Abdominal pain, acute, right lower quadrant (R10.31, 789.03) Comments: did ct scan and labs. good. better now. ? muscle not see hernia. if keeps comes back then back to surgeon. Status: Inactive as of 28-Jun-2015 Abdominal pain, acute, right upper quadrant (Renamed from Acute abdominal pain in right upper quadrant) (R10.11, 789.01) Comments: seen Dr. perez had EGD better now iwht signs and symptoms not sure why ? sphincter of Oddi spasm. ? pinched nerve in back had CT scan abd good. Status: Resolved as of 17-Feb-2017 Abnormal carotid ultrasound (R93.8, 793.99) Comments: normal CTA of neck and head 07-11 Status: Inactive as of 22-Jan-[address] of brain (R90.89, 793.0) Comments: reveiwed with patient recent tests area could be tortorous vessel but did MRA with headaches. Status: Inactive as of 12-Nov-2012 Abnormal laboratory test (R89.9, 796.4) Comments: erlevate liver test the EMr willnot let me bring down so recheck Status: Resolved as of 30-Jul-2017 Abnormal lung sounds (R09.89, 786.7) Status: Inactive as of 07-Aug-2009 Acute prostatitis (N41.0, 601.0) 24-Dec-2011 Status: Resolved as of 24-Dec-2011 Acute sinusitis, unspecified (J01.90, 461.9) Status: Inactive as of 26-Nov-2013 Backache, unspecified (M54.9, 724.5) 24-Dec-2011 Comments: related to moving. 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 colitis colonscopy 08-09. Status: Inactive as of 28-Jun-2015 Dysuria (R30.0, 788.1) Status: Inactive as of 10-Oct-2008 Fever (R50.9, 780.60) Status: Inactive as of 07-Aug-2009 Flu-like symptoms (R68.89, 780.99) Comments: came back today with aches and feeling feverish gave him and the tamiflu Status: Resolved as of 30-Jul-2017 Forearm (881.00) Comments: rtworking in garden bit by but unknown worsening redness and tenderness Status: Inactive as of 16-Jul-2012 GERD (gastroesophageal reflux disease) (K21.9, 530.81) Comments: PPI better. had CP relate to this better now Status: Inactive as of 22-Jan-2016 Headache (R51, 784.0) Comments: on bipap for sleep. MRi adn MRA of head good. eye exam 01-[address] scan bad. started back of neck and work to top. swears meds take at night so will shift to am meds and if continue will follow up Status: Resolved as of 17-Feb-2017 Hypertension (I10, 401.9) Comments: stable Status: Inactive as of 08-Dec-2014 Impaired sensation (R20.1, 782.0) Comments: worm crawling feelign in head that bother so bad goes to bed. ? cpap ? from neck muscle tiwtch ? weird hallucination or seizure. he willask elizabeth davidson dr. refer to neuro. had mri 2012 and not other n euro signs and symptoms and hard to do MRI on himsee ENt,not hink inner ear. carotids show ? vertigo stenosis. workign up. Status: Inactive as of 22-Jan-2016 Inguinal hernia, left (K40.90, 550.90) Comments: at this point fatty and not alot pain and at his age not want surgery will watch and will callif severe pain Status: Inactive as of 22-Oct-2016 Nasal congestion (R09.81, 478.19) Status: Inactive as of 26-Nov-2013 Need for DTaP vaccine (Z23, V06.1) Status: Inactive as of 26-Nov-2013 Need for prophylactic vaccination and inoculation against influenza (Z23, V04.81) Status: Inactive as of 16-Jul-2012 Neoplasm of uncertain behavior of skin (D48.5, 238.2) Comments: ? melanoma insitu need shave biopsy Status: Inactive as of 10-Oct-2008 Other anxiety states (F41.1, 300.09) 06-Feb-2010 Comments: stable on the lexapro Status: Resolved as of 17-Feb-2017 Other specified viral infection, in conditions classified elsewhere and of unspecified site (B97.89, 079.89) Status: Inactive as of 26-Nov-2013 Pain in forearm, unspecified laterality (M79.639, 729.5) Comments: left lateral epicondylitisnsaids, ice forearm band not better inject Status: Inactive as of 11-May-2009 Perleche (K13.0, 686.8) Comments: monitstate hlep the percleche rash on left side buty still split area keep splitting on yawn. will do crazy glue aware not FDA a[pproved Status: Inactive as of 22-Oct-2016 Pharyngitis, acute (J02.9, 462) Comments: think vrial and in past bactrim help alot so called in and if not better by end of weekend then take bactrim Status: Resolved as of 29-Jul-2017 Pneumonia, organism unspecified (J18.9, 486) Status: Inactive as of 16-Jul-2012 PROSTATITIS NOS (601.9) Comments: ? per ER note, unable to take cipro Status: Resolved as of 24-Dec-2011 Rash (R21, 782.1) Comments: look like contact dermatitis or a scattered bites. 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 de luna cut muscle in bladder and cut down prostate. notice decrease in urination. may be few more months before really notice Status: Inactive as of 12-Nov-2012 Shoulder pain (M25.519, 719.41) Comments: had xray, pt, [facility], injection good for 6 weeks--now back talk about repeating vs surgery Status: Inactive as of 10-Oct-2008 Sinusitis, chronic (J32.9, 473.9) Status: Resolved as of 17-Feb-2017 Thrombopenia (D69.6, 287.5) Comments: little low normal Status: Resolved as of 31-Oct-2017 Unspecified Diagnosis Status: Inactive as of 26-Nov-2013 Unspecified Diagnosis Status: Inactive as of 16-Jul-2012 Unspecified Diagnosis Status: Inactive as of 26-Nov-2013 Unspecified hearing loss, unspecified ear (H91.90, 389.9) Status: Inactive as of 12-Nov-2012 Unspecified visual disturbance (H53.9, 368.9) Status: Inactive as of 24-Dec-2011 Urinary frequency (R35.0, 788.41) Comments: incontinence, urgency. enablex not help and headaches. Status: Inactive as of 16-Jul-2012 WM V790.00 (Renamed from [facility]) Comments: family of colon ca--gets scope every 5 years--3-09psa toney de luna Status: Inactive as of 11-Jan-2013 Procedures Procedure Dates Details Appendectomy Completed Bladder/prostate surgery Completed Comments: January 16 Dr. De Luna Cholecystectomy Completed COLONOSCOPY, NOS Completed Comments: 2002, 2013 HERNIA REPAIR, NOS Completed Comments: 1967 SHOULDER, NOS Completed Comments: Surgery 08-30 Vasectomy Completed Comments: 1967 Date Value Details 11-Mar-2018 Inj/Asp Reza Jt Should/Hip/Knee Result: Comments: See Note; NOTES: [facility] Imaging Services [address] [place] [address] Inj/Asp Reza Jt Should/Hip/Knee MR#: [id number] Acct: [id number] Name: MOISES AHUJA Rep # : [id number] : 1935 M 83 From: Abdoulaye Garcia MD PCP: Samia Dominguez MD Status: REG CLI Study: Inj/Asp Reza Jt Should/Hip/Knee Date of Exam: 03/11/18 Exam# [id number] Ordering Dr: Anmol Fisher MD PROCEDURE: Fluoroscopic guided shoulder Injection DATE: March 11, 2018. INDICATION: Male, 83 years old. Chronic left shoulder pain. PHYSICIAN: Abdoulaye Garcia M.D. MEDICATIONS: 12 mg of betamethasone and 4 cc of 1% lidocaine. 2% Lidocaine administered subcutaneously for local anesthesia. ACCESS SITE: Left shoulder. NEEDLE: 22-gauge spinal needle. FLUOROSCOPY TIME (if supplied): (0: 47) minutes/seconds FINDINGS: The risks, benefits, and alternatives to the procedure were explained to the patient. The specific risks of bleeding, infection, and n eurovascular injury were detailed and accepted. Witnessed informed consent was obtained. A 22-gauge spinal needle was positioned under radiographic fluoroscopic localization. Approximately 2 cc of Isov ue-300 instilled for localization purposes. Medication was then injected. The patient tolerated the procedure well without any immediate complications. The patient was placed supine with head elevated and returned to the floor in stable condition. RAD/Inj/Asp Reza Jt Should/Hip/Knee IMPRESSION: 1. Successful fluoroscopic guided left shoulder inj ection. Electronically Signed: Abdoulaye Garcia MD at 9:42 EST Tel [phone], Service support , CC: Samia Dominguez MD; Anmol Fisher MD Operational Review Sergeant: Signed 05-Mar-2018 PT D/C Summary (1) Result: Comments: See Note; NOTES: [facility] [place] [address] Fax REHABILITATION SERVICES DISCHAR GE SUMMARY MR#: [id number] Acct: [id number] Name: MOISES AHUJA Rep #: [id number] : 1935 83 From: Ashok Nolasco DPT, OCS, CSCS Referring DrKarl: Status: REG RCR Insurance: MEDICARE PART A B ANTH EM HP - PT D/C Summary It has been my pleasure to treat MOISES AHUJA under orders from CORTES BALLARD, for the diagnosis of c/s radiculopathy for a total of 5 visit(s). Discharge Date: 03/03/18 Darrell lieberman see the following information for a summary of their discharge status. - Subjective Subjective: L trap still sore but much better overall. Remains 2/10 at most times. Head is moving better. Arm symp toms mostly sharp with position change and then gone. Will see dr. Fisher on for neck and shoulder pain. - Pain neck Pain Intensity (Out of 10): 2 L UE Pain Intensity (Out of 10): Unrat ed - Overall Improvement % Improvement: 40 - Objective Objective/Function: 50 R rot adn 50 L rot and 40 ext. 140 AROM L shoulder elevation, pain at end range actively and passively of ext rot, IR, adn elevation of shoulder. Makes me question shoulder degeneration as main cause of pain. Pt will continue HEP and go to orthopedic doctor on as directed. - Goals Goal 1:: Pain with ADLs is 90% b santos adn 1/10 at worse. Goal Progress: Progressing Goal 2:: Patient I in appropriate posture and HEP to minimize future problems. Goal Progress: Goal Met - Plan Plan: D/C - D/C Information Discharge Comments: Pt to go to ortho as directed by doctor for next step. may benefit from continued PT after shoulder is evaluated by ortho. If there are questions or concerns regarding this patient's physical therapy, please feel free to call me at [phone]. Thank you for the referral of this patient. Sincerely, Ashok Nolasco, ESPERANZAT, OC <Electronically signed by Ashok Nolasco DPT, OCS, CSCS> 03/05/18 0911 CC: Samia Dominguez MD; OUT OF TOWN DOCTOR EBG Signed 18-Feb-2018 Inital Evaluation (1) - PT Result: Comments: See Note; NOTES: [facility] [address] [place], [place] [address] Fax REHABILITATION SERVICES INITIAL EVALUATION MR#: [id number] Acct: [id number] Name: MOISES AHUJA Rep #: [id number] : 1935 82 From: Ashok Nolasco DPT, OCS, CSCS Referring DrKarl: OUT OF TOWN DOCTOR Status: REG RCR Insurance: [place] [employer] PART A B ANTHEM Patient's Visit Information MOISES AHUJA is a 82 year old M referred to Physical Therapy by CORTES BALLARD with a diagnosis of c/s radiculopathy. Date of Evaluation: 02/17/18 ysical Therapist: Ashok Nolasco, EZE, OC - Visit Plan Frequency: 2x /Week Duration: 2 Weeks Plan: 2x/week for two weeks per script for... 1. c/s retraction and postural exercises, progressing HEP. 2. ST M to B UT,s tretch pecs. 3. Manual traction to tolerance. Monitor L tri adn bi weakness. - Subjective Subjective: Stenosis in back and neck. Has given him pain in center of base of neck. Sometimes radi ates into L arm to elbow. this is insidious and lasts 30 seconds. Got it this morning putting tea kettle on stove. Neck hurts much of day 2-3/10. Goes up to 8/10 shooting pain with turning wrong. this h as been going on for 6 months insidiously. Had MRI and it showed stenosis and narrwoing in the neck. Pinching on c5 nerve. Numbness in L hand quickly when arm hurts. Sleep is OK. Sleeps on his back. He doesn't let this hold him back, he hurts and keeps going. Basic ADLs are OK just painful. 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 Driving and turning head hurts but he can d o it. - Pain neck Pain Intensity (Out of 10): 2 Pain Intensity Range: 2, 8 L UE Pain Intensity (Out of 10): 0 Pain Intensity Range: 0, 8 - Objective Sits with forward head and tight scap with t ension. Scapula are protracted. UE AROM WFL to 130 elevation, ext rotation 60a nd IR full adn without pain, elevation hurts slightly L c/s. reflexes 2/3 bi and tri. Sensation WNL in UE to gross light to uch. Strenght is at deficiti in L wrist flex and ext adn bi and tri 4-, others 4/5 in shoulder. + c/s compression test B. - HK and - neer. repeated protrusion increases L UE numbness adn worse pain to 3 /10. repeated retraction NE. Trasnfers adn gait are normal and safe. Tender to palpation base of c/s in Upper traps B max. - Goals Goal 1:: Pain with ADLs is 90% better adn 1/10 at worse. Goal Time Fra me: 2-4 Weeks Goal 2:: Patient I in appropriate posture and HEP to minimize future problems. Goal Time Frame: 2-4 Weeks - Rehabilitation Potential Physical Therapy Diagnosis: cervical stenosis adn radi culapathy Rehabilitation Potential: Fair - Anticipated Interventions Patient/Client Instruction: Educate patient on: Condition, Plan of Care For the Purpose of:: To decrease pain Therapeutic Exercise t o Include: Strength training, Flexibilty training, Scapular Strength/Stabilization For the Purpose of:: To decrease pain, To improve nutrient delivery to tissue, To increase tolerance to activity/condit ion/position Manual Therapy Techniques to Include: Soft tissue mobilization Comment: B UT For the Purpose of:: To decrease pain, To improve nutrient delivery to tissue Thermo therapy (hot pack): Yes For the Purpose of:: To improve nutrient delivery to tissue Thank you for the opportunity to evaluate your patient. For Medicare and Medicare HMO plans, please review the plan of care and approve it. It will need to be FAXED BACK to us at [phone] for Medicare purposes. Please let me know if there are questions or concerns regarding this plan of care. Physician Signature: Date: <Electronically signed by Ashok Gaurav DPT, OCS, CSCS> 02/18/18 0710 CC: Samia Dominguez MD; OUT OF TOWN DOCTOR DT: 8 EBG Signed For Medicare only, by signing this I certify the plan of care. 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 Complications: No immediate complications. Procedure: Pre-Anesthesia Assessment: - Prior to the procedure, a History and Physical was performed, and patient medications and aller gies were reviewed. The patient's tolerance of previous anesthesia was also reviewed. The risks and benefits of the procedure and the sedation options and risks were discussed with the patient. All ques tions were answered, and informed consent was obtained. Prior Anticoagulants: The patient has taken aspirin, last dose was 5 days prior to procedure. After reviewing the risks and benefits, the patient was deemed in satisfactory condition to undergo the procedure. After I obtained informed consent, the scope was passed under direct vision. Throughout the procedure, the patient's blood pressure, pulse, and oxygen saturations were monitored continuously. The colonoscope was introduced through the anus and advanced to the cecum, identified by appendiceal orifice and ileocecal valve. The colonoscopy was performed without difficulty. The patient tolerated the procedure well. The quality of the bowel preparation was good. Scope In: 10:27:08 AM Scope Withdrawal Time 0 hours 6 minutes 59 seconds Scope Out : 10:41:16 AM Total Procedure Duration Time 0 hours 14 minutes 8 seconds Findings: Multiple small and large-mouthed diverticula were found in the sigmoid colon and descending colon. No additional abnorm alities were found on retroflexion. Impression: - Diverticulosis in the sigmoid colon and in the descending colon. - No specimens collected. Recommendation: - Discharge patient to home. - Resume previou s diet. - Continue present medications. - Resume aspirin at prior dose tomorrow. - No recommendation at this time regarding repeat colonoscopy due to age. Procedure Code(s): --- Professional --- 81423, PT, Colonoscopy, flexible; diagnostic, including collection of specimen(s) by brushing or washing, when performed (separate procedure) Diagnosis Code(s): --- Professional --- Z86.010, Personal history o f colonic polyps K57.30, Diverticulosis of large intestine without perforation or abscess without bleeding CPT copyright 2017 [employer] [employer]. All rights reserved. The codes documented in t his report are preliminary and upon auto body estimator review may be revised to meet current compliance requirements. Mehdi Foote MD 01/16/2018 10:49:47 AM This report has been signed electronically. Number o f Addenda: 0 Note Initiated On: 01/16/2018 10:15 AM 01/16/18 1049 Date Mehdi Foote MD Cosigner Signature: Date (if indicated) CC: Mehdi Foote MD; Samia Dominguez MD Date Dictated: 01/16/18 1015 Date Transcribed: Operational Review Sergeant: SCOT Signed 30-Dec-2017 Surgery Visit Report Result: Comments: See Note; NOTES: [facility] [address] [place], [place] [id number] OFFICE VISIT Date of Service: 12/30/17 MR#: [id number] Acct: [id number] Name: MOISES AHUJA Rep #: [id number] : 1935 Provider: Nay Quesada PA-C Age/Sex: 82/M Location: [facility] Status: Signed Intake Vital Signs12/30/17 Height 5 ft 7 in 12/30/17 Weight: 195 lb Intake Visit Reasons: UPDATE H AND P Home Visit Field Care Manager Required: No Is patient in pain?: No Allergies Penicillins Allergy (Verified 12/30/17 10:16) Swelling acetaminophen [From Vicodin] Adverse Reaction (Verified 12/30 10:16) Other gabapentin Adverse Reaction (Verified 12/30/17 10:16) Other hydrocodone bitartrate [From Vicodin] Adverse Reaction (Verified 12/30/17 10:16) Other ketoconazole Adverse Reaction (Verifie d 12/30/17 10:16) Nausea levofloxacin [From Levaquin] Adverse Reaction (Verified 12/30/17 10:16) Other prednisone Adverse Reaction (Verified 12/30/17 10:16) Other MYKEL Adverse Reaction (Uncoded 12/30/17 10:16) Other VICODIN Adverse Reaction (Uncoded 12/30/17 10:16) Other Medications Aspirin [Aspirin, Baby] 81 mg PO DAILY@0800 01/31/13 [History Confirmed 12/30/17] Escitalopram Oxalate [Lexapro] 10 m g PO QHS 01/31/13 [History Confirmed 12/30/17] Omeprazole [Prilosec] 20 mg PO DAILY 01/31/13 [History Confirmed 12/30/17] Metoprolol(XL)Succ [Toprol Xl (Beta Rena)] 50 mg PO QHS 11/20/13 [History Con firmed 12/30/17] Primidone [Mysoline] 12.5 mg PO DAILY 11/20/13 [History Confirmed 12/30/17] meloxicam 7.5 mg tablet 7.5 mg PO QDAY 10/22/17 [History Confirmed 12/30/17] pravastatin 40 mg tablet 40 mg P O QDAY 10/22/17 [History Confirmed 12/30/17] [facility] Medical History Nonrheumatic mitral valve prolapse (Chronic) Accelerated essential hypertension (Acu te) Hyperlipidemia (Chronic) Hypertension (Chronic) Coronary artery disease (Chronic) C. difficile colitis (Acute) Surgical History H/O colonoscopy (Re solved) Hx of hernia repair (Resolved) H/O vasectomy (Resolved) Hx of cholecystectomy (Resolved) Hx of appendectomy (Resolved) Family History Father CVA (cerebral vascular accident) Mother CAD (coronary artery disease) Diabetes Hypertension Brother Colon cancer Brother Hypertension Sister Myocardial infarction Son Myocardial infarction Socia l History Smoking Status: Former smoker HPI HPI HPI: Patient is an 82 y/o male I am following for screening colonoscopy. Patient had a bout of C Diff in October when he originally was evaluated by Dr. Foote. Patient notes he also developed a lactose intolerance which he is slowly adding dairy back into his diet. Patient notes his active colitis has resolved. He notes solid bowel movements. He d enies abdominal pain/discomfort, constipation, diarrhea, melena, bright red blood. He notes a brother who with colon cancer at age 64. He had a colonoscopy approximately 5 years ago. He note s a 6 pound intentional weight loss. He notes a cardiac history of mitral valve prolapse. His rag room supervisor is Dr. Horvath. Patient's previous history per Dr. Foote: MOISES AHUJA, is a 82 M who prese nts to the office today for colonoscopy. The patient reports that he had a colonoscopy in July 2013. A tubular adenoma was found. He was recommended to have repeat colonoscopy in 5 years. He is also re covering from C. difficile colitis. He reports he was having diarrhea but now his stools are starting to firm up. He still has some mild abdominal cramping. He was unsure if this was also related to div erticulitis and he has had a few bouts of diverticulitis recently. He is currently having no blood in his stool. ROS General General: Yes fatigue; no weight change Musc Musculoskeletal: Yes back pro blems and arthritis Cardio Cardiovascular: No murmur, pacemaker, heart disease, atrial fibrillation, high blood pressure, heart attack, heart stent, palpitations, shortness of breat with exertion or dionicio st pain Psych Psychiatric: Yes anxiety Resp Respiratory: No shortness of breath, Yes sleep apnea, No cough, No COPD, No asthma, No emphysema, No wheezing Gastro Gastrointestinal: No abdominal pain, No n ausea or vomiting, Yes diarrhea, No constipation, No blood in stool, Yes acid reflux, Yes hemorrhoids, No ulcers, Yes gallbladder problem, No black,tarry stools Giovani Hematologic: Yes blood thinners Ex am Const General: cooperative, healthy appearing, comfortable, no acute distress HENMT Head: normal to inspection Eyes General: appearance normal, both eyes and all related structures Neck Neck mass: No Resp Effort AND Inspection: normal respiratory effort Auscultation: clear to auscultation bilaterally Cardio Rate: regular rate Rhythm: regular rhythm Heart Sounds: no murmurs GI Inspection: normal to inspection Palpation: soft Auscultation: normal bowel sounds Skin General: no rashes or lesions noted Neuro General: no focal motor deficits Extrem General: normal to inspection Psych Appearance: grossl y normal Affect: normal affect Assessment AND Plan Problems 1. Family history of colon cancer Z80.[address] Foote will plan to perform a colonoscopy. Procedure details, risks and benefits were reviewed with the patient. Patient has had the opportunity to ask and have questions answered. Patient verbally understands and agrees with the plan. Patient will hold his aspirin for 5 days. Bowel prep instructions were reviewed with the patient. Coding Level of Care Code No Charge Diagnoses Family history of colon cancer Z80.0 Update H AND P 12/30/17 1043 <Electronically signed by Jaja Quesada PA-C> Date aNy Quesada PA-C Cosigner Signature: Date (if applicable) CC: 05-Nov-2017 Surgery Visit Report Result: Comments: See Note; NOTES: [facility] [address] [place] [address] OFFICE VISIT Date of Service: 11/05/17 MR#: [id number] Acct: [id number] Name: MOISES AHUJA Rep #: [id number] : 1935 Provider: Mehdi Foote MD Age/Sex: 82/M Location: [facility] Status: Signed Intake Vital Signs11/05/17 Height 5 ft 7 in 11/05/17 Weight: 201 lb 11/05/17 Bod y Mass Index (BMI) 31.4 Intake Visit Reasons: C-Scope Screening Home Visit Field Care Manager Required: No Is patient in pain?: No Allergies Penicillins Allergy (Verified 11/05/17 10:28) Swelling acetaminophen [From V icodin] Adverse Reaction (Verified 11/05/17 10:28) Other gabapentin Adverse Reaction (Verified 11/05/17 10:28) Other hydrocodone bitartrate [From Vicodin] Adverse Reaction (Verified 11/05/17 10:28) Othe r ketoconazole Adverse Reaction (Verified 11/05/17 10:28) Nausea levofloxacin [From Levaquin] Adverse Reaction (Verified 11/05/17 10:28) Other prednisone Adverse Reaction (Verified 11/05/17 10:28) Other MYKEL Adverse Reaction (Uncoded 04/20/15 22:47) Other VICODIN Adverse Reaction (Uncoded 04/20/15 22:47) Other Medications Aspirin [Aspirin, Baby] 81 mg PO DAILY@0800 01/31/13 [History Confirmed 11/05] Escitalopram Oxalate [Lexapro] 10 mg PO QHS 01/31/13 [History Confirmed 11/05/17] Omeprazole [Prilosec] 20 mg PO DAILY 01/31/13 [History Confirmed 11/05/17] Metoprolol(XL)Succ [Toprol Xl (Beta Bloc ker)] 50 mg PO QHS 11/20/13 [History Confirmed 11/05/17] Primidone [Mysoline] 12.5 mg PO DAILY 11/20/13 [History Confirmed 11/05/17] meloxicam 7.5 mg tablet 7.5 mg PO QDAY 10/22/17 [History Confirmed ] pravastatin 40 mg tablet 40 mg PO QDAY 10/22/17 [History Confirmed 11/05/17] PFS Medical History Nonrheumatic mitral valve prolapse (Chronic) Ac celerated essential hypertension (Acute) Hyperlipidemia (Chronic) Hypertension (Chronic) Coronary artery disease (Chronic) C. difficile colitis (Acute) Surgical History H/O colonoscopy (Resolved) Hx of hernia repair (Resolved) H/O vasectomy (Resolved) Hx of cholecystectomy (Resolved) Hx of appendectomy (Resolved) Family History (Reviewed 11/05/17 @ 10: 27 by Jessica Richmond) Father CVA (cerebral vascular accident) Mother CAD (coronary artery disease) Diabetes Hypertension Brother Colon cancer Brother Hypertension Sister Myocardial infarction So n Myocardial infarction Social History Smoking Status: Former smoker HPI HPI HPI: MOISES AHUJA, is a 82 M who presents to the office today for colonoscopy. The patient reports that he had a colon oscopy in July 2013. A tubular adenoma was found. He was recommended to have repeat colonoscopy in 5 years. He is also recovering from C. difficile colitis. He reports he was having diarrhea but now hi s stools are starting to firm up. He still has some mild abdominal cramping. He was unsure if this was also related to diverticulitis and he has had a few bouts of diverticulitis recently. He is current ly having no blood in his stool. ROS General General: Yes fatigue; no weight change Musc Musculoskeletal: Yes back problems and arthritis Cardio Cardiovascular: No murmur, pacemaker, heart disease, at rial fibrillation, high blood pressure, heart attack, heart stent, palpitations, shortness of breat with exertion or chest pain Psych Psychiatric: Yes anxiety Resp Respiratory: No shortness of breath, Y es sleep apnea, No cough, No COPD, No asthma, No emphysema, No wheezing Gastro Gastrointestinal: No abdominal pain, No nausea or vomiting, Yes diarrhea, No constipation, No blood in stool, Yes acid refl ux, Yes hemorrhoids, No ulcers, Yes gallbladder problem, No black,tarry stools Giovani Hematologic: Yes blood thinners Exam Const General: cooperative Orientation: alert, awake, oriented x3 Resp Ausculta tion: clear to auscultation bilaterally Cardio Rate: regular rate Rhythm: regular rhythm Heart Sounds: no murmurs GI Inspection: non-distended Palpation: soft, nontender Assessment AND Plan Problems 1 . History of adenomatous polyp of colon Z86.010 2. Colitis K52.9 Plan 1. Patient is currently recovering from C. difficile colitis. He may have also had recent bouts of diverticulitis. The patient had a colonoscopy in 2013 and had an adenomatous polyp and was recommended to follow- up for repeat colonoscopy in 3-5 years. 2. I explained endoscopy in detail to the patient. I explained the risks includi ng but not limited to stroke or heart attack with anesthesia, perforation of the GI tract, bleeding, infection. I explained that any of these could necessitate further emergency surgery. The patient und erstands and all questions were answered sufficiently. The patient wishes to proceed with procedure. 3. I have asked the patient to hold his aspirin 5 days before the procedure. 4. As the patient is c urrently recovering from active colitis I will plan for colonoscopy in December. Mehdi Foote MD Pager: [facility] [address] [place] [address], [address] [place] [address] Office: Orders Orders: Coding Level of Care Code Off vis,new,level 3 Diagnoses History of adenomatous polyp of colon Z86.010 Colitis K52.9 03/15 1050 <Electronically signed by Mehdi Foote MD> Date Mehdi Foote MD Cosigner Signature: Date (if applicable) CC: Samia Dominguez MD 24-Oct-2017 Cardiology Visit Report Result: Comments: See Note; NOTES: [facility] [address] [place] [address] OFFICE VISIT Date of Service: 10/22/17 MR#: [id number] Acct: [id number] Name: MOISES AHUJA Rep #: [id number] : 1935 Provider: Edelmira Zayas Age/Sex: 82/M Location: [facility] [place] [facility] Status: Signed HPI HPI Details: MOISES AHUJA, is a 82 M who presents to the office today for a cardiovascul ar follow-up. He has a history of hypertension, hyperlipidemia and mitral valve prolapse. Pt has been having issues with lightheadedness. This has since resolved. PCP had obtained a stress/echo and car otid. He has been having issues with his abdomen. He did see his PCP for this, he was started on antibiotics. He does not have any chest discomfort/heaviness/tightness. His exercise tolerance is stabl e for his age. He does not have any worsening symptoms of shortness of breath. He denies any PND. He does not have any orthopnea. He does not have any symptoms of congestive heart failure. He does not h ave any palpitations that he is aware of. He does not have any lightheadedness or dizziness. He does not have any near-syncope or syncope. He does not have any lower extremity edema. He does not have an y symptoms of claudication. Intake Vital Signs10/22/17 Height 5 ft 7 in 10/22/17 Weight: 201 lb 10/22/17 Body Mass Index (BMI) 31.4 10/22/17 Blood Pressure 128/54 10/22/17 Blood Pressure Location Lt b rachial Intake Visit Reasons: 1 Y FU Home Visit Field Care Manager Required: No Accompanied by: Allergies Penicillins Allergy (Verified 10/22/17 09:45) Swelling acetaminophen [From Vicodin] Adverse Reaction (Veri fied 10/22/17 09:45) Other gabapentin Adverse Reaction (Verified 10/22/17 09:45) Other hydrocodone bitartrate [From Vicodin] Adverse Reaction (Verified 10/22/17 09:45) Other ketoconazole Adverse Reactio n (Verified 10/22/17 09:45) Nausea levofloxacin [From Levaquin] Adverse Reaction (Verified 10/22/17 09:45) Other prednisone Adverse Reaction (Verified 10/22/17 09:45) Other MYKEL Adverse Reaction (Uncode d 04/20/15 22:47) Other VICODIN Adverse Reaction (Uncoded 04/20/15 22:47) Other Medications Aspirin [Aspirin, Baby] 81 mg PO DAILY@0800 01/31/13 [History Confirmed 10/22/17] Escitalopram Oxalate [Serafin apro] 10 mg PO QHS 01/31/13 [History Confirmed 10/22/17] Omeprazole [Prilosec] 20 mg PO DAILY 01/31/13 [History Confirmed 10/22/17] Metoprolol(XL)Succ [Toprol Xl (Beta Rena)] 50 mg PO QHS 11/20/13 [H istory Confirmed 10/22/17] Primidone [Mysoline] 12.5 mg PO DAILY 11/20/13 [History Confirmed 10/22/17] meloxicam 7.5 mg tablet 7.5 mg PO QDAY 10/22/17 [History Confirmed 10/22/17] pravastatin 40 mg tabl et 40 mg PO QDAY 10/22/17 [History Confirmed 10/22/17] Ejection fraction %: 55 to 59 PFSH Medical History Nonrheumatic mitral valve prolapse (Chronic) Accelerated essential hypertension (Acute) Hype rlipidemia (Chronic) Hypertension (Chronic) Coronary artery disease (Chronic) Surgical History H/O colonoscopy (Resolved) Hx of hernia repair (Resolved) H/O vasectomy (Resolved) Hx of cholecystectomy (Resolved) Hx of appendectomy (Resolved) Family History Father CVA (cerebral vascular accident) Mother CAD (coronar y artery disease) Diabetes Hypertension Brother Colon cancer Brother Hypertension Sister Myocardial infarction Son Myocardial infarction Social History Smoking Status: Former smoker ROS Const Const: Negative for weakness, fatigue, fever(s) or headache(s) Eyes Eyes: Negative for blind spots, loss of peripheral vision or transient loss of vision ENT ENT: Negative for headache(s), dizzine ss, tinnitus or Nosebleed/epistaxis Cardio Chest Pain: No Palpitations: No Edema: None Muscle aches with walking: None Resp Respiratory: Negative for SOB with activity, SOB at rest, SOB orthopnea\SOB ly ing down or Cough GI GI: Negative nausea, vomiting, heartburn or vomiting blood/hematemesis : Negative for hematuria Musc Musc: Negative for muscle aches/ myalgia Neuro Neuro: Negative for weakness , headache(s), dizziness, near syncope, syncope, lightheadedness or orthostatic symptoms Giovani Hematologic/Lymphatic: Negative for easy bleeding Endo Endo: Negative for fatigue Cardiology Exam Const Ap pearance: cooperative, no acute distress and well developed Orientation: alert, awake and oriented x3 Head Head: normocephalic and atraumatic Mouth: moist mucous membranes Eyes General: appearance cintia l, both eyes and all related structures Conjunctivae: conjunctivae normal Pupils: PERRL EOM: EOM intact bilaterally Neck Neck: normal visual inspection, no lymphadenopathy and no JVD Carotids: Negative bruit Neck Mass: Negative Neck mass Chest Chest inspection: normal inspection of the chest and symmetric chest movement Auscultation: Bilateral: Clear to Auscultation Cardio Palpation: normal PMI Rate: regular rate Rhythm: regular rhythm Heart sounds: S1 normal and S2 normal; negative rub, gallop or murmur GI GI: normal to inspection, soft, no hepatosplenomegaly and bowel sounds present; negative tend er Neuro General: alert, awake, oriented x3, CN's II-XI intact bilaterally and moves all extremities Extremities Pulses: Normal: Right Posterior Tibial Pulse, Left Posterior Tibial Pulse, Right Radial P ulse, Left Radial Pulse Lower Extremity Edema: None: Bilateral Psych Psychological: normal affect Supplemental Info Stress test in 2018 demonstrated no evidence of ischemia at a high workload. Echoca rdiogram in 2018 demonstrated Left ventricular systolic function is normal. The estimated ejection fraction is 55 %. Trivial mitral valve insufficiency. Trivial tricuspid valve insufficiency. Mild (1+) pulmonic valve insufficiency. There is evidence of diastolic dysfunction. Carotid ultrasound in 2017 demonstrated moderate disease on the right mild on the left. Assessment AND Plan 1. Essential hype rtension I10 Plan - HUANG Valenzuela Blood pressure is well controlled on current medications, we do not recommend any changes at this time. 2. Pure hypercholesterolemia E78.00; E78.0 J[place] - HUANG Abdullahi Managed by primary care doctor. Have asked for copy of labs for continuity of care. 3. Nonrheumatic mitral valve prolapse I34.1 Plan - HUANG Valenzuela Stable, will cat nue to monitor by history, exam and echocardiograms as deemed appropriate. Plan Detail Other Medications Discontinued: Additional Comments - HUANG Valenzuela The above patient was discussed wi Dr. Horvath, he agrees with plan of care. Thank you for allowing us to participate in patient's plan of care, if you have any questions please do not hesitate to call. This note was generated using a voice recognition system and there may be incorrect words, spelling or punctuation errors that were not noted when reviewing the office note prior to saving. 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) Coding Level of Ca re Code Off vis,est,level 3 Diagnoses Essential hypertension I10 Hypertension type: essential hypertension Pure hypercholesterolemia E78.00; E78.0 Hyperlipidemia type: pure hypercholesterolemia Nonrheu matic mitral valve prolapse I34.1 Coding Level of Care Code Off vis,est,level 3 Diagnoses Essential hypertension I10 Hypertension type: essential hypertension Pure hypercholesterolemia E78.00; E78.0 Hyperlipidemia type: pure hypercholesterolemia Nonrheumatic mitral valve prolapse I34.1 10/22/17 1122 <Electronically signed by Edelmira Zayas PA> Date Edelmira ENCINAS 10/24/17 1613<Electronically signed by Horacio Horavth MD> Cosigner Signature: Date (if applicable) Horacio Horvath MD CC: Samia Dominguez MD 07-Oct-2017 Stress Report Result: Comments: See Note; NOTES: [facility] Cardi[facility] Services [address] [place] [address] MR#: [id number] Acct: [id number] Name: MOISES AHUJA Rep #: [id number] : [birth year] 82 From: Tacho Rolle MD Primary Care: Samia Dominguez MD Status: REG CLI Ordering Dr: Sex: Deejay Huang Stress Test Report Date: 04/16/2018 Procedure: Exercise tolerance test/imaging study Indicatio ns: Lightheadedness; CAD; PCI Consent: Per the patient Procedure: The patient exercised on a Raymond protocol for 6 minutes and 30 seconds completing Stage II and 30 seconds of Stage III achieving a pe ak heart rate of 122 bpm (88 % predicted maximal heart rate) with a peak blood pressure 166/72 mmHg and a peak MET capacity of 7 METs. The baseline ECG demonstrated normal sinus rhythm. The peak exerci se ECG demonstrated somatic/motion artifact with no obvious ECG changes. There were no cardiac dysrhythmias pretest, during exercise, or recovery. The functional capacity was considered good. There w as no complaint of chest discomfort during exercise or recovery. The examination was discontinued secondary to dyspnea. Impression: 1. Technically adequate (percent predicted maximal heart rate great er than 85%) exercise tolerance test 2. Peak exercise ECG demonstrated somatic/motion artifact with no obvious ECG changes 3. There were no cardiac dysrhythmias pretest, during exercise, or recovery. 4. Nuclear images pending Myocardial perfusion imaging study: Technique: The patient was injected with 14.1 mCi of technetium 99m Cardiolite and subsequently rest SPECT Cardiolite nuclear imaging was o btained in the horizontal long, vertical long, and short axis views. The patient exercised on a Raymond protocol for 6 minutes and 30 seconds completing Stage II and 30 seconds of Stage III achieving a pe ak heart rate of 122 bpm (88 % predicted maximal heart rate) with a peak blood pressure 166/72 mmHg and a peak MET capacity of 7 METs. The patient was injected with 44.5 mCi of technetium 99m Cardiolite and subsequently stress SPECT Cardiolite nuclear imaging was obtained in the horizontal long, vertical long, and short axis views. A gated Cardiolite study at peak stress was obtained. Interpretation: Rest and stress SPECT Cardiolite nuclear imaging status post realignment, normalization, and attenuation correction, demonstrates the appearance of relative uniform tracer uptake and myocardial perfus ion appearing within normal limits. There is end systolic thickening and brightening. The gated Cardiolite study demonstrates myocardial thickening and inward wall motion. The reported LVEF is 70 %. Im pression: 1. Rest and stress SPECT Cardiolite nuclear imaging demonstrate relative uniform tracer uptake and myocardial perfusion appearing within normal limits. 2. The gated Cardiolite study reports a n LVEF of 70 %. This note was generated with [employer] software. It may contain incorrect words, spelling, and punctuation that were not noted in checking the note before signing. 10/07/17 17 02 <Electronically signed by Tacho Rolle MD> Date Tacho Rolle MD CC: Samia Dominguez MD Date Dictated: 10/07/171655 Date Transcribed: 10/07/171655 Operational Review Sergeant: PM Signed 07-Oct-2017 Echocardiogram Complete Result: Comments: See Note; NOTES: [facility] Cardi[facility] Services [address] [place] [address] Echo Complete 10/07/17 0858 MR#: [id number] Acct: [id number] Name: MOISES AHUJA ep #: [id number] : 1935 82 From: Tacho Rolle MD Attending Dr: Samia Dominguez MD Status: REG CLI Ordering Dr: Samia Dominguez MD Date: 10/07/17 Location: [facility] Sex: M C Admitted: Reason For Praneeth dy: CAD Procedure This was a 2D Doppler, Color Flow transthoracic echocardiogram. The exam was of adequate technical quality. Exam performed in department. Left Ventricle Normal left ventricle. Left v entricular systolic function is normal. The estimated ejection fraction is 55 %. There is evidence of diastolic dysfunction. No regional wall motion abnormalities noted. Right Ventricle Normal RV size. Normal systolic function. Atria Normal left atrium. Normal right atrium. No doppler evidence for ASD. Mitral Valve There is no mitral annular calcification. Normal mitral valve. Trivial mitral valve insufficiency. Tricuspid Valve Normal tricuspid valve. Trivial tricuspid valve insufficiency. Aortic Valve Trisinus/trileaflet aortic valve. Normal aortic valve. Pulmonic Valve The pulmonic valve is n ot well visualized. Mild (1+) pulmonic valve insufficiency. Great Vessels Normal sized aortic root. Pericardium/Pleural No pericardial effusion. MMode/2D Measurements AND Calculations LVIDd: 4.7 cm I VSd: 1.1 cm Ao root diam: 3.4 cm LVIDs: 2.8 cm LVPWd: 0.98 cm LA dimension: 3.4 cm RVDd: 3.4 cm FS: 41.1 % LAV(MOD-bp): 42.9 ml LA A4 area: 16.0 cm2 RA A4 area: 14.7 cm2 LAV(MOD-bp) Indexed: 20.8 ml/m2 LAV(MOD-sp2): 43.3 ml LAV(MOD-sp4): 41.9 ml Doppler Measurements AND Calculations MV E max jo: 81.8 cm/sec Lat Peak E' Jo: 4.9 cm/sec Med Peak E' Jo: 4.9 cm/sec MV A max jo: 94.6 cm/sec E/E' lat: 16.7 E/E' med: 16.7 MV E/A: 0.86 Ao V2 max: 101.8 cm/sec LV V1 max: 81.5 cm/sec PA V2 max: 91.3 cm/sec Ao max P.1 mmHg LV V1 max P.7 mmHg Interpretation Summary Left ventricular systolic function is normal. The estimated ejection fra ction is 55 %. Trivial mitral valve insufficiency. Trivial tricuspid valve insufficiency. Mild (1+) pulmonic valve insufficiency. There is evidence of diastolic dysfunction. Ordering Physician: Samia Dominguez Referring Physician: Samia Dominguez Performed By: Saida Denise KOFI Electronically s igned by: Tacho Rolle MD on 10/07/2017 03:05 PM 10/07/17 1505 Date Tacho Rolle MD CC: Samia Dominguez MD Date Dictated: 10/07/17 0858 Date Trans cribed: 10/07/17 1505 Operational Review Sergeant: Signed 29-Jul-2017 Abdomen Single View Result: Comments: See Note; NOTES: [facility] Imaging Services [address] [place] [id number] Abdomen Single View MR#: [id number] Acct: [id number] Name: MOISES AHUJA Rep #: [id number] : 1935 82 From: Abdoulaye Garcia MD PCP: Samia Dominguez MD Status: REG CLI Study: Abdomen Single View Date of Exam: 07/29/17 Exam# [id number] Ordering Dr: Samia Dominguez MD STUDY: X-RAY - A BDOMEN/PELVIS REASON FOR EXAM: Male, 82 years old. 2 month history of mid abdominal pain. TECHNIQUE: Two AP supine views of the abdomen and pelvis. COMPARISON: None. __ FINDINGS: Normal visualized lung bases. There is a moderate amount of colonic fecal material. The visualized liver, spleen and kidneys are grossly normal in size and morphology. Normal soft tissu e structures. Normal visualized osseous structures. RAD/Abdomen Single View IMPRESSION: Moderate amount of fecal material is seen in the colon. Electronically Signed: Abdoulaye Garcia MD at 13:01 EDT Tel [phone], Service support , CC: Samia Dominguez MD Operational Review Sergeant: Signed 12-May-2017 PT D/C Summary (1) Result: Comments: See Note; NOTES: [facility] [address] [place] [address] Fax REHABILITATION SERVICES DISCHAR GE SUMMARY MR#: [id number] Acct: [id number] Name: MOISES AHUJA Rep #: [id number] : 1935 82 From: aHng Waller PT, ATC Referring Dr.: Pavel Madsen MD Status: REG RCR Insurance: MEDICARE PART A B ANTHEM HP - PT D/C Summary It has been my pleasure to treat MOISES AHUJA under orders from Pavel Madsen, for the diagnosis of L shoulder impingement syndrome for a total of 4 visit(s). Di Date: Please see the following information for a summary of their discharge status. - Subjective Subjective: Pt reports no pain this morning - Pain L shoulder Pain Intensity (Out of 10): 0 - Objective Objective/Function: L shoulder pain 0/10. L shoulder ROM: flex= 140, abd= 120, ER= 45, IR WNL. L shoulder MMT: 5/5 throughout. Pt is I with HEP - Goals Goal 1:: Decrease L shoulder pain x 50% to aid with IADL's Goal Progress: Goal Met Goal 2:: Increase L shoulder flex and abd ROM x 30 degrees to aid with overhead lifting Goal Progress: Goal Met Goal 3:: Increase L shoulder strength x 1 grade to aid with IADL's Goal Progress: Goal Met Goal 4:: I with HEP Goal Progress: Goal Met - Plan Plan: Discharge - D/C Information If there are questions or concerns regarding this patient's physi kylie therapy, please feel free to call me at [phone]. Thank you for the referral of this patient. Sincerely, Hang Waller, PT, <Electronically signed by Hang Waller PT, ATC&#62 ; 05/12/17 1002 CC: Samia Dominguez MD; Pavel Madsen MD [facility] Signed 09-Apr-2017 Inital Evaluation (1) - PT Result: Comments: See Note; NOTES: [facility] [address] [place], [place] [address] Fax REHABILITATION SERVICES INITIAL EVALUATION MR#: [id number] Acct: [id number] Name: MOISES AHUJA Rep #: [id number] : 1935 82 From: Hang Waller PT, ATC Referring Dr.: Pavel Madsen MD Status: REG RCR Insurance: MEDICARE PART A B ANTHEM Patient's Visit Information MOISES AHUJA is a 82 year old M referred to Physical Therapy by Pavel Madsen with a diagnosis of L shoulder impingement syndrome. Date of Evaluation: 1 06/10/16 Physical Therapist: Hang Waller PT, - Visit Plan Frequency: 2-3x /Week Duration: 4-6 Weeks Plan: L shoulder strengthening (rot cuff), scap stab ex's, UBE, and HEP. US/CP for pain - Subje ctive Subjective: Pt reports 3 weeks ago, he had his L arm on the bed while bending over to reach something on the ground with his R UE when he experienced a stabbing pain in his L shoulder. Pt reports his pain has been pretty severe since. Pt notes he is limited with reaching over his head to put stuff away in the cabinets. Pt did have L shoulder arthroscopy in 2008 secondary to L shoulder OA. Pt rep orts his L UE goes numb on him and gets cold when he rides the stationary bike. No sleep diff secondary to pain. Pt is R hand dominant. Pt notes resting his L UE usually helps the pain to go away. Pt no maricruz he does have cervical stenosis, and so he always has a little bit of neck pain. 3/10 pain at rest, 10/10 pain at worst (reaching for coffee cup). Pt has had an x-ray, which revealed minor OA. - Robb n L shoulder Pain Intensity (Out of 10): 3 Pain Intensity Range: 10 - Objective Neuro: B UE sensation was WNL to light touch. B bicepital reflex= 2/3. Palpation: pain throughout the distribution of the supraspinatus muscle. No obvious deformity. ROM: R shoulder flex= 140, abd= 115, ER= 50, IR WNL; L shoulder flex= 115, abd= 105, ER= 30, IR WNL. MMT: B shoulders are 5/5 with the exception of R ER= 4/5. Special testing: Pos empty can test - Goals Goal 1:: Decrease L shoulder pain x 50% to aid with IADL's Goal Time Frame: 4-6 Weeks Goal 2:: Increase L shoulder flex and abd ROM x 30 degrees to aid with overhead lifting Goal Time Frame: 4-6 Weeks Goal 3:: Increase L shoulder strength x 1 grade to aid with IADL's Goal Time Frame: 4-6 Weeks Goal 4:: I with HEP Goal Time Frame: 4-6 Weeks - Rehabilit ation Potential Physical Therapy Diagnosis: L shoulder pain, weakness, and limited ROM secondary to impingement syndrome Rehabilitation Potential: Good - Anticipated Interventions Patient/Client Instru ction: Educate patient on: Condition, Plan of Care For the Purpose of:: To improve self management Therapeutic Exercise to Include: Strength training, Postural training, Active ROM, Scapular Strength/St abilization For the Purpose of:: To decrease pain, To increase ROM, To improve muscle performance and motor function Cryotherapy (ice pack, ice massage): Yes Ultrasound (thermal/non thermal): Yes For th e Purpose of:: To decrease pain Thank you for the opportunity to evaluate your patient. For Medicare and Medicare HMO plans, please review the plan of care and approve it. It will need to be FAXED BACK to us at [phone] for Medicare purposes. Please let me know if there are questions or concerns regarding this plan of care. Physician Signature: ____Date: <Electronically signed by Hang Waller PT, ATC> 04/09/17 0758 CC: Samia Dominguez MD; Pavel Madsen MD [facility] Signed For Medicare only , by signing this I certify the plan of care. Physicians Signature Date 05-Nov-2016 Carotid Duplex Ultrasound Result: Comments: See Note; NOTES: [facility] Cardi[facility] Services [address] [place] [address] Carotid Duplex Ultrasound 11/01/16 0857 MR#: [id number] Acct: [id number] Name: MOISES HOWARD Rep #: [id number] : 1935 81 From: John Owens MD Attending Dr: Samia Dominguez MD Status: REG CLI Ordering Dr: Samia Dominguez MD Date: 11/01/16 Location: [facility] Sex: M C Admitted: Re ason For Study: Carotid Stenosis Rt. Velocities/BP Lt. Velocities/BP Prox CCA 94/14 cm/sec. Prox CCA 100/13 cm/sec. Mid CCA 90/16 cm/sec. Mid CCA 106/15 cm/sec. Dist CCA 83/13 cm/sec. Dist CCA 113/16 c m/sec. Prox ICA 108/32 cm/sec. Prox ICA 102/25 cm/sec. Mid ICA 160/39 cm/sec. Mid ICA 117/29 cm/sec. Dist ICA 92/27 cm/sec. Dist ICA 108/26 cm/sec. Rt. ICA/CCA = 1.77. Lt. ICA/CCA = 1.10. Prox ECA 118/1 cm/sec. Prox ECA 91/3 cm/sec. Rt. Vert. 41/12 cm/sec. Lt. Vert. 42/8 cm/sec. Right Extracranial There is intimal thickening but no significant atherosclerotic plaque noted in the right common carotid artery. There is intimal thickening but no significant atherosclerotic plaque noted in the right internal carotid artery. The tortuous nature of the right internal carotid artery may result in flow [place] overestimating the degree of stenosis. There is intimal thickening but no significant atherosclerotic plaque noted in the right external carotid artery. Antegrade flow is noted in the right verte bral artery. Left Extracranial There is intimal thickening but no significant atherosclerotic plaque noted in the left common carotid artery. There is heterogeneous, smooth atherosclerotic plaque noted in the left internal carotid artery. The left internal carotid artery is very tortuous. There is intimal thickening but no significant atherosclerotic plaque noted in the left external carotid artery. Antegrade flow is noted in the left vertebral artery. Procedure Carotid Duplex 634[address]. Exam performed in department. 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 Mild (<50%) stenosis left extracranial internal carotid. Flow within the vertebral arteries is antegrade bilaterally. Ordering Physician: Samia Dominguez Referring Physician: Samia Dominguez Performed By: Edyta Aden, RALPH, RVT 11/05/162013 Date John Owens MD CC: Samia Dominguez MD Date Dictated: 11/01/16 0857 Date Transcribed: 11/05/162013 Operational Review Sergeant: Signed 24-Jun-2016 Abdomen/Pelvis WITH Contrast Result: Comments: See Note; NOTES: [facility] Imaging Services [address] [place] [address] Verdana 4d Abdomen/Pelvis WITH Contrast MR#: [id number] Acct: [id number] Name: JOSEPHINE AHUJA Rep #: [id number] : 1935 M 81 From: Rubi Burkett MD PCP: Samia Dominguez MD Status: REG CLI Study: Abdomen/Pelvis WITH Contrast Date of Exam: 06/24/16 Exam# [id number] Ordering Dr: Samia Dominguez MD STUDY: CT ABDOMEN AND PELVIS WITH CONTRAST REASON FOR EXAM: Male, 81 years old. Right lower quadrant pain radiating into back, intermittent one week low back pain 2 months history of prolapsed zuleyma wel. RADIATION DOSAGE (If Supplied By Facility): CTDIvol = ( 17.34 ) mGy, DLP = ( 917.86 ) mGycm TECHNIQUE: Transaxial images were obtained from the dome of the diaphragm to the symphysis pubis with o ral contrast. 100ml ml of Isovue 300 contrast was administered. Sagittal and coronal images were reconstructed. Individualized dose optimization techniques were used for this CT. COMPARISON: CT scan a bdomen and pelvis December 08, 2014, October 11, 2015 CT scan abdomen, December 31, 2011 CT scan abdomen and pelvis FINDINGS: There are few areas of probable air trapping in the left lung base. There is borderline cardiac enlargement and a trace pericardial effusion. There is a 4 mm cystic structure in the right hepatic lobe. There are surgical clips in the gallbladder fossa consistent with a prior cholecystectomy. Normal spleen. There is a focal lobulation in the anterior aspect of the pancreas with a peripheral calcification which is stable since prior study dating back to December 31, 2011 Normal bilateral adrenal glands. There is a stable well-circumscribed hypoechoic cystic structure in the superior pole of the right kidney measuring 3.7 x 4.2 cm. There is a lower pole cyst measuring 3.2 x 2.3 cm. There is a cyst in the medial aspect of the left kidney measuring 2.6 x 3.2 cm. There is a 5 mm cyst in the upper pole of the left kidney. These appear stable si nce the prior study. There is a mildly thick-walled appearance of the distal esophagus and a small hiatal hernia. Normal small intestine. There is abundant stool in the colon from the cecum to the rect um. There are several radiopaque densities in the cecum which appear to be undigested tablets or calcifications/fecaliths similar to prior study December 31, 2011. There are a few diverticula present wi thout evidence of diverticulitis. The appendix is not visualized and may have been removed. The aorta is partially calcified. Normal inferior vena cava. Normal retroperitoneum. The bladder is mostly d ecompressed. The prostate is borderline enlarged and partially calcified. There is a left-sided inguinal hernia containing adipose tissue. There are diffuse degenerative changes of the visualized lumba r spine. There is a bony mineralization is somewhat inhomogeneous. There is multilevel disc space narrowing endplate sclerosis and a few areas of Schmorl's nodes. At the level of L2-L3 there is severe n eural foramina narrowing and severe central stenosis. At L3-L4 there is a broad disc bulge with severe neural foraminal narrowing and moderate central stenosis. At L4-L5 there is a broad disc bulge mode rate to severe neural foramina narrowing mild to moderate central stenosis. At L5-S1 there is a broad disc bulge with minimal neural foraminal narrowing. There is facet arthropathy. CT/Abdomen/Pelvis WITH Contrast IMPRESSION: Moderate Constipation. There are several either fecaliths or undigested tablets within the cecum which are similar to jonathan or studies. The appendix is not visualized and may have been removed. Diverticulosis without evidence of diverticulitis. Bilateral benign-appearing stable renal cysts. Mild thickening of the distal esophagus small hiatal hernia consider esophagitis. Borderline mildly inhomogeneous enlarged prostate recommended follow-up PSA laboratory values and clinical exam. Fatty left inguinal hernia Degener ative change thoracolumbar spine. Electronically Signed: Rubi Burkett MD at 14:51 EST Tel , Service support [phone], CC: Samia Dominguez MD Operational Review Sergeant: Signed 24-Jun-2016 L/S Spine Min 4 Views Result: Comments: See Note; NOTES: [facility] Imaging Services [address] [place] [address] Verdana 4d L/S Spine Min 4 Views MR#: [id number] Acct: [id number] Name: MOISES AHUJA Rep #: [id number] : 1935 M 81 From: Dionisio Brown MD PCP: Samia Dominguez MD Status: REG CLI Study: L/S Spine Min 4 Views Date of Exam: 06/24/16 Exam# [id number] Ordering Dr: Samia Dominguez MD [facility] DY: X-RAY - LUMBAR SPINE REASON FOR EXAM: Male, 81 years old. Low back pain TECHNIQUE: 5 view(s) of the lumbar spine were obtained. COMPARISON: None FINDINGS: Nor mal lumbar lordosis. There is no substantial scoliosis. There is a normal alignment of the vertebrae. There is multilevel endplate spondylosis of the lumbar vertebrae. There is multi-level degenerative disc disease with multi-level disc space narrowing. Moderate narrowing seen at L2-L3 and L5-S1. There is atherosclerotic calcification of the abdominal aorta without a demonstrated aneurysm. RAD/L/S Spine Min 4 Views IMPRESSION: Mild spondylosis. Mild to moderate multilevel degenerative disc disease. Electronically Signed: Deejay Cortez at 16:43 EST , Service support [phone], CC: Samia Dominguez MD Operational Review Sergeant: Signed 11-Oct-2015 Abdomen WITH IV Contrast Result: Comments: See Note; NOTES: [facility] Imaging Services [address] [place], [place] [id number] Verdana 4d Abdomen WITH IV Contrast MR#: [id number] Acct: [id number] Name: MOSIES ANDERSON Rep #: [id number] : 1935 80 From: Abdoulaye Garcia MD PCP: Samia Dominguez MD Status: REG CLI Study: Abdomen WITH IV Contrast Date of Exam: 10/11/15 Exam# [id number] Ordering D r: Samia Dominguez MD STUDY: CT ABDOMEN WITH CONTRAST REASON FOR EXAM: Male, 80 years old. Followup examination for pancreatic abnormality. RADIATION DOSAGE (If Supplied By Facility): CTDIvol = ( 16.53 ) mGy, DLP = ( 677.35 ) mGycm TECHNIQUE: Transaxial images were obtained post I.V. administration of 100CC ml of Isovue 300 contrast, and with oral contrast. Sagittal and coronal images were reconstructed. Individualized dose optimization techniques were used for this CT. COMPARISON: Comparison is made with prior study dated December 08, 2014. FINDI NGS: Stable mild increased linear markings at the lung bases. Coronary artery calcification. Minimal pericardial thickening along the posterior aspect of the cardiac contour. There is hepatomegaly with diffuse hepatic enlargement. Stable minimal intrahepatic ductal dilatation. The patient is status post cholecystectomy. Normal spleen. Stable 2.1 cm x 2.9 cm isodense nodule along the anterior a spect of the body of the pancreas. Punctate calcifications are seen along its periphery. Normal bilateral adrenal glands. Stable 3.6 cm cyst in the upper pole of the right kidney. Stable 2.[address] in the lower pole. Stable 3 cm cyst in the anterior mid aspect of the left kidney. There is a small hiatal hernia. Normal small intestine. Normal colon. There is non-visualization of the appendix . There is diffuse atherosclerotic calcification of the abdominal aorta, without a demonstrated aneurysm. Normal inferior vena cava. Normal retroperitoneum. Normal abdominal wall. There are diffus e degenerative changes of the visualized lumbar spine. IMPRESSION: Status post cholecystectomy and appendectomy. Stable central intrahepatic ductal dilatation. Stable appearance of the 2.1 cm x 2.9 cm hypodense nodule arising from the anterior aspect of the body of the pancreas. Electronically Signed: Abdoulaye Garcia MD at 9:34 EDT Tel [phone], Service support [phone], CC: Samia Dominguez MD Operational Review Sergeant: Signed 05-Jul-2015 CTA Head W/WO Contrast Result: Comments: See Note; NOTES: [facility] Imaging Services [address] [place] [id number] Verdana 4d CTA Head W/WO Contrast MR#: [id number] Acct: [id number] Name: MOISES HOWARD Rep #: [id number] : 1935 M 80 From: Abdoulaye Garcia MD PCP: Samia Dominguez MD Status: REG CLI Study: CTA Head W/WO Contrast Date of Exam: 07/05/15 Exam# [id number] Ordering Dr: Samia Carreon MD STUDY: CTA OF THE BRAIN REASON FOR EXAM: Male, 80 years old. Abnormal carotid ultrasound. RADIATION DOSAGE (If Supplied By Facility): CTDIvol = ( 63.89 ) mGy, DLP = ( 2413.41 ) mGycm TECHNIQUE: CT angiography was performed with a multi-detector CT scanner. Data acquisition was obtained from the skull base through the vertex following intravenous administration of 100 ml of Isovue 370. MIP images were reconstructed from the axial data set. Post-processing of the angiographic images was performed, with multiplanar reformation and 3D reconstruction. COMPARISON: None. FINDINGS: Normal bilateral petrous carotid arteries. There is calcified plaque formation of the right cavernous carotid artery, without a cross-sectional luminal stenosis. There is calcified plaque formation of the left cavernous carotid artery, without a cross-sectional luminal stenosis. Normal right A1 segments of the anterior cerebral artery. Normal left A1 segments of the anterior cerebral artery. Normal intact anterior communicating artery (ACOM). Normal bilateral A2 segments of the anterior cerebral arteries. Normal right M1 and M2 segments of t he middle cerebral arteries, with a normal M1 bifurcation. Normal left M1 and M2 segments of the middle cerebral arteries, with a normal M1 bifurcation. Normal right posterior communicating artery ( PCOM). Normal left posterior communicating artery (PCOM). Normal bilateral vertebral arteries. Normal basilar artery with a normal basilar bifurcation. The visualized bilateral superior cerebellar ( SCA) arteries are normal. Normal bilateral P1, P2 and visualized P3 segments of the posterior cerebral arteries. There is no demonstrated aneurysm of the [place] of [place]. There is no demonstrate d abnormality of the visualized brain. IMPRESSION: Normal [place] of [place] without a demonstrated aneurysm or hemodynamically significant stenosis. Electronica lly Signed: Abdoulaye Garcia MD at 8:07 EST Tel [phone], Service support [phone], CC: Samia Dominguez MD Operational Review Sergeant: Signed 05-Jul-2015 CTA Neck W/WO Contrast Result: Comments: See Note; NOTES: [facility] Imaging Services [address] [place] [address] Verdana 4d CTA Neck W/WO Contrast MR#: [id number] Acct: [id number] Name: MOISES HOWARD Rep #: [id number] : 1935 M 80 From: Abdoulaye Garcia MD PCP: Samia Dominguez MD Status: REG CLI Study: CTA Neck W/WO Contrast Date of Exam: 07/05/15 Exam# [id number] Ordering Dr: Samia Carreon MD STUDY: CTA NECK WITH CONTRAST REASON FOR EXAM: Male, 80 years old. Abnormal carotid ultrasound examination. RADIATION DOSAGE (If Supplied By Facility): CTDIvol = ( 63.89 ) mGy, DLP = ( 2413.41 ) mGycm TECHNIQUE: CT angiography with multi-detector data acquisition was performed from the aortic arch to the skull base following intravenous administration of 100 ml of Isovue 370 contrast. MIP images were reconstructed from the axial data set. Post-processing of the angiographic images was performed, with multiplanar reformation and 3D reconstruction. COMPARISON: None. FINDINGS: AORTIC ARCH: There is atherosclerotic calcific plaque formation of the aortic arch and great vessels arising from the aortic arch, without a hemodynam ically significant stenosis. There is a normal origin of the brachiocephalic, left common carotid, and left subclavian arteries. RIGHT CAROTID ARTERIES: Normal right common carotid artery (CCA). No rmal right common carotid bulb. Normal origin of the right internal carotid (ICA) artery without a hemodynamically significant stenosis. Normal visualized cervical portion of the right internal car otid artery. Normal origin of the right external carotid artery (ECA). LEFT CAROTID ARTERIES: Normal left common carotid artery (CCA). Normal left common carotid bulb. Normal origin of the left i nternal carotid (ICA) artery without a hemodynamically significant stenosis. Normal visualized cervical portion of the left internal carotid artery. Normal origin of the left external carotid artery (ECA). VERTEBRAL ARTERIES: Focal nonstenotic plaque is seen at the origin of the right humeral artery. IMPRESSION: Normal bilateral cervical carotid and verte bral arteries. Electronically Signed: Abdoulaye Garcia MD at 8:06 EST Tel [phone], Service support [phone], CC: Samia Dominguez MD Operational Review Sergeant: Signed 09-Jun-2015 Carotid Duplex Ultrasound Result: Comments: See Note; NOTES: [facility] Cardiovascular Services [address] [place] [id number] Carotid Duplex Ultrasound 06/09/15 1012 MR#: [id number] Acct: [id number] Name: MOISES AHUJA Rep #: [id number] : 1935 80 From: Low Hernandez MD Attending Dr: Samia Dominguez MD Status: REG CLI Ordering Dr: Samia Dominguez MD Date: 06/09/15 Location: [facility] Sex: M C Admitted: Rt. Velocities/BP Lt. Velocities/BP Prox CCA 95/18 cm/sec. Prox CCA 106/17 cm/sec. Mid CCA 92/16 cm/sec. Mid CCA 111/17 cm/sec. Dist CCA 88/14 cm/sec. Dist CCA 98/15 cm/sec. Prox ICA 73/25 cm/sec. Prox ICA 92/21 cm/sec. Mid ICA 139/33 cm/sec. Mid ICA 77/24 cm/sec. Dist ICA 123/31 cm/sec. Dist ICA 95/24 cm/sec. Rt. ICA/CCA = 1.51. Lt. ICA/CCA = 0.85. Prox ECA 109/10 cm/sec. Prox ECA 133/12 cm/sec. Rt. Vert. 44/13 cm/sec. Lt. Vert. 43/1 cm/sec. Right Extracranial There is intimal thickening but no significant atherosclerotic plaque noted in the right common carotid artery . There is no significant atherosclerotic plaque noted in the right internal carotid artery. The tortuous nature of the right internal carotid artery may result in flow velocities overestimating the degree of stenosis. There is no significant atherosclerotic plaque noted in the right external carotid artery. Antegrade flow is noted in the right vertebral artery. Left Extracranial There is intim al thickening but no significant atherosclerotic plaque noted in the left common carotid artery. There is heterogeneous, smooth atherosclerotic plaque noted in the left internal carotid artery. There is no significant atherosclerotic plaque noted in the left external carotid artery. Antegrade flow is noted in the left vertebral artery. High resistant waveform noted Lt Vert A. Procedure Caroti d Duplex 57032. Exam performed in department. Interpretation Summary The systolic velocity in the right mid-internal carotid artery is mildly elevated. However, edwards- scale imaging reveals no signi ficant atherosclerotic plaque in the right internal carotid artery. Therefore, it is suspected that the elevated velocity is due to vessel tortuosity rather than stenosis. This finding is similar to a prior study on 02/03/2013. Mild (<50%) stenosis left extracranial internal carotid. Flow within the right verterbral artery is antegrade. Antegrade flow is noted in the left vertebral artery, though the waveform morphology suggests high resistance. This may be due to stenosis beyond the field of view. Clinical correlation is advised. Ordering Physician: Samia Dominguez Referring Physician: Samia Dominguez M.D. Performed By: Edyta Aden, RALPH, RVT 06/09/15 220 Date Low Hernandez MD CC: Samia Dominguez MD Date Dictated: 06/09/15 1012 Date Transcribed: 06/09/152201 Operational Review Sergeant: Signed 21-Apr-2015 Emergency Department Summary Result: Comments: See Note; NOTES: [facility] Medical Records Department [address] [place] [address] Emergency Department Summary 04/20/15 2316 MR#: [id number] Acct: [id number] Name: MOISES AHUJA Rep #: [id number] : 1935 80 From: Leo Gunn MD PCP: Samia Dominguez MD Status: REG ER History of Present Illness Chief Complaint: Dizziness Informant: Patient , Family Onset: Today Context: Sudden Onset - Acute onset 2100 Timing: Continuous Quality and Location: - - Patient's only complaint is spinning.. Negative for: Right Facial Droop, Left Facial Droo p, Right Face Paresthesia, Left Face Parasthesia, Right Arm Parasthesia, Left Arm Parasthesia, Right Leg Parasthesia, Left Leg Parasthesia, Right Arm Weakness, Left Arm Weakness, Right Leg Weakness, Lef t Leg Weakness, Slurred Speech, Expressive Aphasia, Receptive Aphasia, Difficulty with Ambulation Current Severity: Mild Maximum Severity: Moderate Worsened by: Patient does not report any precipita ting or exacerbating factor Relieved by: Nothing Associated Symptoms: Headache. Negative for: Nausea, Vomiting, Chest Pain Narrative: states he complained of worms in his head yesterday. Today after returning from mass he developed a spinning sensation. apparently sat in his chair removed his shoes. He got up to place his shoes and the closet. When he bent over the spinning started. S he denies any double vision, blurred vision or loss of vision. Patient denies any paresthesia, anesthesia or motor weakness. Patient denies walking to one side preferentially. Patient reports similar symptoms 17 years ago when he was diagnosed with vertigo. Prior similar symptoms: Yes Recent Illness/Hospitalization: No - Past Medical History (1) Benign positional vertigo Status: Resolved Huang garcía Medical History - Allergies and Home Meds Allergies/Adverse Reactions: Allergies Penicillins Allergy (Verified 04/20/15 22:47) Swelling acetaminophen [From Vicodin] Adverse Reaction (Verifie d 04/20/15 22:47) Other gabapentin Adverse Reaction (Verified 04/20/15 22:47) Other hydrocodone bitartrate [From Vicodin] Adverse Reaction (Verified 04/20/15 22:47) Other ketoconazole Adverse Reac tion (Verified 04/20/15 22:47) Nausea levofloxacin [From Levaquin] Adverse Reaction (Verified 04/20/15 22:47) Other prednisone Adverse Reaction (Verified 04/20/15 22:47) Other MYKEL Adverse Reactio n (Uncoded 04/20/15 22:47) Other VICODIN Adverse Reaction (Uncoded 04/20/15 22:47) Other Home Medications: Home Medications Medication Instructions Recorded Aspirin [Aspirin, Baby] 81 mg PO DAILY@0800 01/31/13 Atorvastatin Calcium [Lipitor] 10 mg PO QHS 01/31/13 Escitalopram Oxalate [Lexapro] 10 mg PO QHS 01/31/13 Omeprazole [Prilosec] 20 mg PO DAILY 01/31/13 Ibuprofen [Motrin] 40 0 mg PO Q4H PRN PRN 11/20/13 Metoprolol(XL)Succ [Toprol Xl 50 mg PO QHS 11/20/13 (Beta Rena)] Primidone [Mysoline] 12.5 mg PO DAILY 11/20/13 SimETHICONE [Mylicon] 80 mg PO TIDPC #30 tablet Primary Care Physician: Samia Dominguez MD [Primary Care Provider] - Prior records reviewed: Yes Past Medical History: - - Previously documented Surgical History: appendectomy, cholecystecto my, herniorrhaphy, TURP - Shoulder surgery bilaterally, right hernia surgery Lives: Spouse/ Significant Other Smoking Status: Former smoker Alcohol: None Drugs: None - Family History Materna l Family History: Reports: Heart Disease Paternal Family History: Reports: Dementia, - Review of Systems General: Denies: Chills, Fever, Malaise, Subjective, Sweats, Weight loss Eyes: Denies : Visual changes - bilaterally, Blurred Vision - bilaterally, Diplopia ENT: Denies: Bilateral ear pain, Rhinorrhea, Sore throat Cardiovascular: Denies: Chest pain, Palpitations Respiratory: Denies: D yspnea, Cough, Dyspnea on exertion, Orthopnea Gastrointestinal: Denies: Abdominal pain, Nausea, Vomiting, Diarrhea, Melena, Hematochezia Genitourinary: Denies: Dysuria, Hematuria, Frequency Musculosk eletal: Denies: Myalgias, Arthralgias, Neck pain, Back pain, Swelling, Extremity Pain, -, - Skin: Denies: Rash Neurological: Denies: Headache, Weakness, Parasthesia, Numbness Endocrine: Denies: Polyu nitesh, Polydipsia, Heat intolerance, Cold intolerance, -, - Hematologic: Denies: Easy bruising, Easy bleeding, Lymphadenopathy, -, - Physical Exam Vital Signs/Narrative: Vital Signs Temp Pulse Res p BP 04/20/15 22:46 97.1 F 67 12 162/90 - NIH Stroke Scale 1a Level of Consciousness: 0 1b LOC Questions (Score 2 if aphasic/stupor): 0 1c LOC Commands (Only score 1st attempt): 0 2 Best Gaze (If aphasic, use reflexive mvmts.): 0 3 Visual: 0 4 Facial Palsy: 0 5 Motor Arm Right (UN = amputation/fusion): 0 5 Motor Arm Left: 0 6 Motor Leg Right: 0 6 Motor Leg Left: 0 7 Limb ataxia (Only + if out of proportion): 0 8 Sensory (Aphasia/stupor=0 or 1, coma=2): 0 9 Best Language: 0 10 Dysarthria (mute, coma=2, intubated=UN): 0 11 Extinction and Inattention (only scored if +): 0 Total Sc ore: 0 General: Well nourished, Well developed Head: Normocephalic, Atraumatic Eyes: Perrl, EOMI, - - Anoscopic exam was limited. There was no papilledema noted.. Negative for: Pale conjunctiva, Scl eral icterus ENT: Moist mucous membranes, No rhinorrhea, TM's clear. Negative for: Nasal congestion, Sinus tenderness Neck: Supple, Nontender, No lymphadenopathy, No JVD, - - Auscultation of neck was negative for carotid bruits. Cardiovascular: Regular rate, Regular rhythm, No murmurs, Normal S1, Normal S2 Respiratory: No distress, CTA bilaterally, Chest nontender Abdomen: Soft, Nontender, Nond istended, Normal bowel sounds, No masses Back: Negative for: Nontender, Normal Inspection, CVA tenderness, Spinal tenderness, - Extremities: Nontender, No edema Skin: Normal color, No rash Neurologi kylie: Alert, Oriented x3, Cranial nerves II-XII grossly intact, Normal Strength, Normal Sensation, Normal DTR, Normal Gait, - - Dorothy-Hallpike maneuver was positive. Symptoms worse with turning head to th e left. Fast component noted to the right. Did not appreciate an initial upward deflection. Psychological: Normal affect Diagnostic/Tx/Re-eval - Medical Decision Making Stroke Team Activated: No IV TPA Administered: No Intraarterial Therapy: No Patient's symptoms were suggestive of paroxysmal benign positional vertigo. Patient did have a positive [place] Hallpike maneuver. An Jimmy maneuver was performed. Patient's i-STAT was did fatigue. He will be observed and ambulated to assure safety prior to discharge. 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 Patient was ambulated and is symptom-free., 3575 ED Disposition - Plan for ED Patient: Disposition: Home or Assisted Xander tania Chief Complaint: Dizziness Diagnosis: Acute paroxysmal benign positional verti Instructions: ED Benign Positional Vertigo Referrals: Samia Dominguez MD [Primary Care Provider] - As Needed What to do if you have Problems For any increased pain, shortness of breath, bleeding, nausea or vomiting, chest pain, or any unexpected problems, contact your doctor. Call [facility] ([phone] ) or report to the closest Emergency Room. Call 911 if necessary. 04/21/15 0010 <Electronically signed by Leo Gunn MD> Date Leo Gunn MD Cosigner Signature (If Indicated): Date CC: Gallo Fraser MD; Samia Dominguez MD 14-Apr-2015 PT D/C Summary Result: Comments: See Note; NOTES: [facility] [address] [place] [address]. [address] [place] [address] Fax REHABILITATION SE RVICES DISCHARGE SUMMARY MR#: [id number] Acct: [id number] Name: MOISES AHUJA Rep #: [id number] : 1935 80 From: Ashok Nolasco Referring Dr.: Samia Dominguez MD Status: REG RCR Eval Date: Discharge Date: HP - PT D/C Summary It has been my pleasure to treat MOISES AHUJA under orders from Samia Dominguez, for the diagnosis of C/S disc degeneration for a total of 5 visit(s). Pleas e see the following information for a summary of their discharge status. - Subjective Subjective: Much better overall. No pain at all. Didn't like quadruped exercise as it bothered neck. HEP: ball squeezes, LE rot NWB, SKC, fis, - Pain L hip and leg Pain Intensity (Out of 10): 0 - Overall Improvement % Improvement: 99 - Objective Objective/Function: Decent ROM in L/S and painfree, w alks well and finds neutral spine easily in sit and stand. - Goals Goal 1:: ROM of L/S without pain Goal Progress: Goal Met Goal 2:: L leg pain abolished and LB pain to 1/10 at worst Goal Progres s: Goal Met Goal 3:: I approp HEP Goal Progress: Goal Met - Plan Plan: D/C - D/C Information Discharge Comments: D/C to HEP. PT is painfree and I with HEP, desired D/C. If there are questions o r concerns regarding this patient's physical therapy, please feel free to call me at [phone]. Thank you for the referral of this patient. Sincerely, Ashok Nolasco <Electronically jose d by Ashok Nolasco > 04/14/15 0641 CC: Samia Dominguez MD EBG Signed 03-Apr-2015 Inital Evaluation - PT Result: Comments: See Note; NOTES: [facility] [address] [place] [address] Fax REHABILITATION SE RVICES INITIAL EVALUATION MR#: [id number] Acct: [id number] Name: MOISES AHUJA Rep #: [id number] : 1935 80 From: Ashok Nolasco Referring Dr.: Samia Dominguez MD Status: REG RCR Insurance: MEDICARE PART A B Eval Date: ANTHEM Patient's Visit Information MOISES AHUJA is a 80 year old M, referred to Physical Therapy by Samia Dominguez,, with a diagnosis of C/S disc degeneration. Date of Evaluation: 03/31/15 Physical Therapist: Ashok Nolasco - Visit Plan Frequency: 2-3x /Week Duration: 2-4 Weeks - Subjective L lateral hip started hurting, thought it might bne the TERESA but that was OK. Had x rays of LB and it has some degeneration that may casue L post leg pain. Pain started about 3 weeks. 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 No pain in sitting, Gets pain if stands/ walks longer distances 30 minutes., originally was painful right away. Nck is doing fine. Sleep is good. No change to exercises recently. Rides bike 15 minutes, Does leg lifts, LE rot NWB, pulls on band. Activities normal but not able to be on feet long time, needs to rest. - Objective LE AROM and UE AROM WFL...tightness apparent in HS quads, IT, gastroc, pecsr. reflexes 2/3 patella a nd achilles and bi and tri. sensation WNL to gross light touch. L/S AROM ext max limited and L pain, L SB limited and comfortable, R SB hurts L LB, flexion is full and painfree. C/S AROM symeetrically limited and painfree, consistent with his history in physical therapy. - slump, - SLR'. repeated flexion B motion and pain. - Goals Goal 1:: ROM of L/S without pain Goal Time Frame: 2-4 Weeks Goal 2:: L leg pain abolished and LB pain to 1/10 at worst Goal Time Frame: 2-4 Weeks Goal 3:: I approp HEP Goal Time Frame: 2-4 Weeks - Rehabilitation Potential Physical Therapy Diagnosis: Spinal deg eneration causing hip and leg pain L. Neck is currently not symptomatic for patient and we will work on Left leg pain with lower spinal eercises. Rehabilitation Potential: Fair - Anticipated Interve ntions Patient/Client Instruction: Educate patient on: Condition, Plan of Care Comments: educate HEP and activity modification For the Purpose of:: To decrease pain Therapeutic Exercise to Include: Strength training, Passive ROM, Active ROM For the Purpose of:: To decrease pain Manual Therapy Techniques to Include: Soft tissue mobilization Comment: L/S paraspinals For the Purpose of:: To decre ase pain Thermo therapy (hot pack): Yes For the Purpose of:: To improve nutrient delivery to tissue Thank you for the opportunity to evaluate your patient. For Medicare and Medicare HMO plans, please review the plan of care and approve it. It will need to be FAXED BACK to us at [phone] for Medicare purposes. Please let me know if there are questions or concerns regarding this plan of care. Physician Signature: Date: <Electronically signed by Ashok Nolasco > 04/03/15 0650 CC: Samia Dominguez MD DD: 1 06/01/14 EB Signed For Medicare only, by signing this I certify the plan of care. Physicians Signature Date 08-Dec-2014 Abdomen/Pelvis W IV Cont ONLY Result: Comments: See Note; NOTES: [facility] Imaging Services [address] [place] [address] CAT Scan Report MR#: [id number] Acct: [id number] Name: MOISES AHUJA Rep #: [id number] : 1935 M 79 From: Abdoulaye Garcia MD PCP: Samia Dominguez MD Status: REG CLI Study: Abdomen/Pelvis W IV Cont ONLY Date of Exam: 12/08/14 Exam# [id number] Ordering Dr: Samia Dominguez MD STUDY: CT ABDOMEN AND PELVIS WITH CONTRAST REASON FOR EXAM: Male, 79 years old. Right lower quadrant pain. RADIATION DOSAGE (If Supplied By Facility): CTDIvol = ( 18.14 ) mGy, DLP = ( 2119.11 ) mGycm TECHNIQUE: Transaxial images were obtained from the dome of the diaphragm to the symphysis pubis without oral contrast. 100cc ml of Isovue 300 contrast was administered. Sagittal and coronal i mages were reconstructed. Delayed imaging was obtained as well. COMPARISON: Comparison is made with prior study dated October 25, 2013. FINDINGS: Stable mild degr ee of increased linear markings at the lung bases suggestive of bibasilar scarring. Coronary artery calcification. Minimal pericardial thickening along the posterior aspect. Minimal dilatation of th e central intrahepatic biliary ducts. The patient is status post cholecystectomy. Normal spleen. There is a stable 2.1 cm x 2.9 cm isodense nodular density arising from the anterior aspect of the bod y of the pancreas there are punctate calcification is seen along its anterior margin. This was seen on prior examinations. Normal bilateral adrenal glands. Stable 3.6 cm cyst in the upper pole of t he right kidney. Stable 2.5 cm cyst in the lower pole of the right kidney. Stable 3 cm cyst in the anterior midportion of the left kidney. There is a small hiatal hernia. Normal small intestine. The re are multiple colonic diverticula consistent with diverticulosis. There is non-visualization of the appendix. There is diffuse atherosclerotic calcification of the abdominal aorta, without a demo nstrated aneurysm. Normal inferior vena cava. Normal retroperitoneum. Normal urinary bladder. Central prostatic calcifications. Small left inguinal hernia containing fat. There are diffuse degenera tive changes of the visualized lumbar spine. IMPRESSION: The patient is status post cholecystectomy and appendectomy. Stable minimal pericardial thickening. St able bilateral renal cysts. Stable 2.1 cm x 2.9 cm hypodense nodular density arising from the anterior aspect of the body of the pancreas with punctate calcification. Electronically Signed: Manish Garcia MD at 13:51 EDT Tel [phone], Service support [phone], CC: Samia Dominguez MD Operational Review Sergeant: Signed 21-Jan-2014 PT Discharge Summary Result: Comments: See Note; NOTES: [facility] [address] [place] [address] Fax REHABILITATION SERVICES DISCHARGE SUMMARY MR#: [id number] Acct: [id number] Name: MOISES AHUJA Rep #: [id number] : 1935 78 From: Ashok Nolasco Referring DrKarl: OUT OF [facility] DO[facility] Status: DIS RCR Eval Date: Discha rge Date: 11/25/13 DATE OF SERVICE: DIAGNOSIS: Neck pain and neck strain. Moises Ahuja was seen in my office for a total of 3 visits. He was seen initially on November 10, 2013, where jennifer n in appropriate home exercise program for neck pain and treated with electric stim and moist heat. He was also treated with ultrasound and traction during his time here, but his pain was not respon ding as I would expect to, and it was recommended that he return to doctor for next appropriate medical step. His has eventually called and stated they did get an appointment with Dr. Madsen and we are canceling all those appointments in therapy. Therefore, at this time, I am discontinuing him from my care. Ashok Nolasco, PT T: NTS JOB: [id number] <Electronically signed by Ashok Nolasco > 01/21/14 0646 CC: Signed 11-Nov-2013 Inital Evaluation - PT Result: Comments: See Note; NOTES: [facility] [address] [place], [place] [id number] Fax REHABILITATION SERVICES INITIAL EVALUATION MR#: [id number] Acct: [id number] Name: MOISES AHUJA Rep #: [id number] : 1935 78 From: Ashok Nolasco Referring DrKarl: OUT OF TOWN DOCTOR Status: REG R Insurance: MEDIC ARE PART A B Eval Date: ANTHEM DATE OF SERVICE: 11/10/2013 DIAGNOSIS: Neck strain. REFERRED BY: Jace Jones, physician's assistant at surgery. SUBJECTIVE: Moises Ahuja is a 78-year-old male, who presents today with neck pain about a month. Onset he does not know why, it was insidious. He has a history of neck problems and even a year ago had diagnostics that showed stenosis. He had x-rays at this time, which he says showed a lot of arthritis. He says the pain is on middle of his neck, down his left arm laterally into and ulnar part of his wrist and hand. He says it has never gone do wn his arm before, but it is very painful, especially in the morning and 10:10 this morning, which is pretty typical morning lately. Dr. Madsen's office told him to take ibuprofen, which does help to ease it up a little bit and sent him for therapy. He follows up with them in 4 weeks. He is having difficulty sleeping. He needs 2 pillows. Sleeping is tremendously disturbed. His range of motion in his neck is very limited. He is having a hard time driving. He cannot turn his head to the left to look in the car and generally speaking is just miserable due to the pain. He scores himself a 3 8% disability on the neck Oswestry. He says he is otherwise healthy and his goals are less pain and easier movement of his neck. OBJECTIVE: The patient ambulates into physical therapy, no acute dis tress. He does hold his shoulder blades and neck, kind of stiff. He is in a slightly right side bent and definitely flexed head forward posture and maintain this position throughout his time today, but is able to ambulate and transfer independently. Reflexes in the biceps, triceps are 2/3. Sensation in the upper extremities within normal limits to light touch. Strength is 4/5 in the upper ex tremities without myotomal abnormalities. He does have pain with lifting of his left arm. He has positive cervical compression test, especially with left side bending. He has very limited cervical ra nge of motion, left rotation 20 degrees, right rotation 40, pain to the left. Side bending 0 degrees to the left with pain, 15 degrees to the right, extension 95% limited to 15 degrees and painful o n the left side. Cervical flexion is full and without pain and he feels better in this position. His left upper trapezius is mildly tender to palpation. Repeated motion testing shows that repeated r ight side bending abolishes his wrist pain and moves the pain up to his shoulder. Manual traction seems to transiently abolish his symptoms. 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 GOALS: 1. He will have 40 degrees of bilateral rotation, 30 degrees of extension without any pain in the cervical spine. 2. The patient will sleep without any discomfort. 3. The patient will be able to look to the left in the car safely and easily. 4. The patient will show less than 90% disability on the neck index. PLAN: At this point, I have treated him with appropriate home exercise, education on posture management of his condition as well as electric stim with moist heat, which is helpf ul today. I plan to see him 3 times a week for 2-4 weeks for modalities to help with his discomfort, cervical range of motion, postural correction and monitor the effects of his home exercise progr am. He was agreeable to this course of therapy. Ashok Nolasco, PT T: NTS JOB: [id number] <Electronically signed by Ashok Nolasco > 11/11/13 0651 CC: Signed For Medicare only, by signing this I certify the plan of care. Physicians Signature Date 25-Oct-2013 Abdomen/Pelvis WITH Contrast Result: Comments: See Note; NOTES: [facility] [address] [place] [address] CAT Scan Report MR#: [id number] Acct: [id number] Name: MOISES AHUJA Rep #: [id number] : 1935 M 78 From: Harsha Pabon MD PCP: Samia Dominguez MD Status: REG CLI Study: Abdomen/Pelvis WITH Contrast Date of Exam: 10/25/13 Exam# [id number] Ordering Dr: Tacho De Luna MD STUDY: CT ABDOMEN AND PELVIS WITH CONTRAST REASON FOR EXAM: Male, 78 years old. Right flank and testicular pain, history of appendectomy and mastectomy. Right inguinal hernia repair. RADIATION DOSA GE (If Supplied By Facility): CTDIvol = ( 16.58 ) mGy, DLP = ( 1818.50 ) mGycm TECHNIQUE: Transaxial images were obtained from the dome of the diaphragm to the symphysis pubis with oral contrast. 10 0ML ml of Isovue 300 contrast was administered. Sagittal and coronal images were reconstructed. COMPARISON: CT abdomen and pelvis dated 12/31/11. FINDINGS: The v isualized lung bases are unremarkable. The visualized portions of the heart are within normal limits. Mild post cholecystectomy intrahepatic biliary duct dilatation. There are surgical clips in the gallbladder fossa consistent with a prior cholecystectomy. Normal spleen. Normal pancreas. Normal bilateral adrenal glands. Bilateral renal cysts are redemonstrated, the largest on the right measur es 3.8 cm the left 2.2 cm. Normal visualized stomach. Normal small intestine. There are multiple colonic diverticula consistent with diverticulosis. There is non-visualization of the appendix, cons istent with prior appendectomy history.. There is diffuse atherosclerotic calcification of the abdominal aorta, without a demonstrated aneurysm. Normal inferior vena cava. Normal retroperitoneum. Normal urinary bladder. There is a small umbilical hernia and left inguinal containing fat. There are diffuse degenerative changes of the visualized lumbar spine. Degenerative disk disease at L5-S1 . IMPRESSION: No CT evidence of an acute intra-abdominal or pelvic process. Postcholecystectomy and appendectomy. Colonic diverticulosis without acute divert iculitis. Redemonstrated bilateral renal cysts, left inguinal and umbilical hernias containing fat. Electronically Signed: Harsha Pabon MD at 19:52 EDT , Service s upport [phone], CC: Samia Dominguez MD; Tacho De Luna MD Operational Review Sergeant: Signed 05-Aug-2013 PT Discharge Summary Result: Comments: See Note; NOTES: [facility] [address] [place] [address] Fax REHABILITATION SERVICES DISCHARGE SUMMARY MR#: [id number] Acct: [id number] Name: MOISES AHUJA Rep #: [id number] : 1935 78 From: Ashok Nolasco Referring Dr.: Samia Dominguez MD Status: REG RCR Eval Date: Discharge Date: DATE OF SERVICE: 08/04/2013 PHYSICIAN: Samia Dominguez M.D. DIAGNOSES: Neck pain, degenerative disk disease of cervical spine. SUMMARY: Moises Ahuja has been seen office for a total of 6 visits. He was seen initially on July 20, 2013, with latest visit being on 2013. He was treated with ultrasound, manual therapy, stretching, progression of appropriate home exercise, postural correction and has made good therapy. He has had good progress. He has had no headache in the last week and a half. He has minimal neck pain, rating it 0/10 at most times and sometimes 2-3/10 in the morning, but it loosens up rather quickly. He is sleeping well. He has met all the goals he set at the beginning of therapy and feels back to normal for him. He is doing well and ready to be done [facility] physical [facility]. Objectively, he has 50 degrees of extension of the cervical spine, 50 degrees bilateral rotation, all of which are much improved. All the goals set for him at the initial eval uation at this point have been met. He scored a big improvement on the Oswestry neck disability index from 30% disability to 8% and I have reviewed with him today important exercises to continue at home to help minimize chances of return. At this point, I am discharging him from physical therapy to his home exercise program. Ashok Nolasco, PT T: MARCEL JOB: [id number] <Electronically s igned by Ashok Nolasco > 08/05/13 0934 CC: Signed 21-Jul-2013 Inital Evaluation - PT Result: Comments: See Note; NOTES: [facility] [address] [facility] [address] [facility] [address] [place], [place] [id number] Fax REHABILITATION SERVICES INITIAL EVALUATION MR#: [id number] Acct: [id number] Name: MOISES AHUJA Rep #: [id number] : 1935 78 From: Ashok Nolasco Referring Dr.: Samia Dominguez MD Status: REG RCR Insurance: MEDICARE PART A B Eval Date: ANTHEM DATE OF SERVICE: 07/20/2013 DIAGNOSIS: Cervical degenerative disk disease. PHYSICIAN: Samia Dominguez M.D. SUBJECTIVE: Moises Ahuja is a 78-year-old male who repo rts that in April, he had insidious onset of headaches and neck pain. He has been in here before for cervical pain, which he still does some rotation exercises for this, but he is getting almost indra ly up to 8/10 headaches starting in the back of his head, working up to the top of his head and neck pain. He does not know what is causing it. He can wake up in the morning with 8/10 pain without rhyme or reason. He does wake up sometimes too early because of head and neck pain. When he gets these headaches, he does not really feel like doing anything other than sit around, but he is able to function with his headaches, very rarely does he have a day without a headache. He has not had a recent x-ray or MRI. One year ago, he had an MRI, which he states showed degenerative disk disease in his neck. He thinks his neck is stiff and turning, it is very difficult in the morning. He returns to see Dr. Dominguez in October and he does a home overall body workout on a daily basis with his . Other medical problems include high blood pressure and arthritis and his goals are freer movement and less pain. OBJECTIVE: The patient ambulates into physical therapy in no acute distress. Ambul ates independently. He has a forward head, forward scapula posture, some tightness in his pectorals suboccipital musculatures. Cervical range of motion is 30 degrees extension with pain in the midd le of his neck, 45 degrees right rotation, 37 degrees left rotation with pain on the left side, full flexion. He has 4+/5 strength in his upper extremities without myotomal abnormalities. A 2/3 prashant ps, triceps reflexes. And sensation in the upper extremities within normal limits to light touch. Negative alar ligament. Negative vertebral artery test. Slight positive vertebral compression test. Negative vertebral distraction. He has tenderness to palpation in the upper rhomboids, upper traps , scalenes, paraspinal musculature in the neck and suboccipital musculature. Repeated motion testi ng of repeated retraction seems to increase his extension range of motion, decreased his headache, no effect on his neck pain. Repeated extension seems to abolish his neck pain, has no effect on his headaches or range of motion. Repeated flexion has no effect on his motion or symptoms. ASSESSMENT: At this point, the patient has cervical degenerative disk disease and is exacerbated by poor po sture, is appropriate for physical therapy with a fair prognosis. GOALS: 1. He will score less than 20% on the Oswestry neck disability. 2. He will have pain 1-2/10 in his neck intermittently and hi s headaches will be abolished. 3. He will not wake up with any head or neck pain. PLAN: At this point, I have instructed this patient on appropriate posture, appropriate home cervical range-of-m otion exercises, scapular [id number] exercises and management of his condition. I plan to see him 2 times a week for 2-4 weeks as needed for ultrasound, massage, manual therapy, postural correc tion, soft tissue stretching and eventual progression to an independent strengthening program. The patient was agreeable to this course of therapy. His score is a G8978, code of CJ and G8979 of CI . Ashok Nolasco, PT T: MARCEL JOB: [id number] <Electronically signed by Ashok Nolasco > 07/21/13 0740 CC: Signed For Medicare only, by signing this I certify the plan of care. Physicians Signature Date 14-Jul-2013 Dexa Bone Density Study (HP) Result: Comments: See Note; NOTES: [facility] [address] [address] Bone Density Report MR#: [id number] Acct: [id number] Name: MOISES AHUJA Rep #: [id number] : 1935 78 From: Abdoulaye Garcia MD PCP: Samia Dominguez MD Status: REG CLI Study: Dexa Bone Density Study (HP) Date of Exam: 07/14/13 Exam# [id number] Ordering Dr: Samia Dominguez MD STUDY: DUAL ENERGY X-RAY ABSORPTIOMETRY / DXA REASON FOR EXAM: Male, 78 years old. The patient is postmenopausal. TECHNIQUE: Bone Mineral Density (BMD) measurements of lumbar spine and bilater al hips were obtained. COMPARISON: None. FINDINGS: Lumbar Spine (L1-L4): g/cm2 (1.569) / T-score (3.1) / Z-score (3.8) Findings are suggestive of normal bone density with a low fracture risk. Left Femur Total: g/cm2 (1.373) / T-score (1.9) / Z-score (2.9) Left Femoral Neck: g/cm2 (1.139) / T-score (0.5) / Z- score (2.0) Right Femur Total: g/cm2 (1.254) / T-score (1.1) / Z-score (2.1) Right Femoral Neck: g/cm2 (1.062) / T-score (-0.1) / Z-score (1.4) IMPRESSION: The patient is considered normal as outlined below according to World Jovani Organization (WHO) criteria with a low fracture risk. Reference Information: The T-score is the number of standard deviations above or b elow the standard which is normal for young adults at their peak bone mineral density. The World Health Organization (WHO) interprets the T-scores as follows: Above -1 Normal bone density Between -1 and -2.5 Osteopenia Equal to / or below -2.5 Osteoporosis As a practical clinical guideline, osteopenia may be graded as follows: Mild -1 through -1.5 Moderate -1.6 through -2.0 Severe -2.1 thr ough -2.4 The Z-score is the number of standard deviations above or below age- matched controls. A Z-score of less than -1.5 would be considered abnormal. References: 1. NIH Osteoporosis and Relate d Bone Diseases http://www.osteo.org 2. International Society for Clinical Densitometry http://www.iscd.org 3. National Osteoporosis Foundation http://www.nof.org Electronically Signed: Abdoulaye catalan M.D. at 15:48 EDT , Service support [phone], CC: Samia Dominguez MD Operational Review Sergeant: Signed Immunization Name Dates Details Influenza (3 years and up) on: 31-Jan-2009 Influenza, split virus, preserv. free, intradermal Comments: in hospital 10-13 Pneumococcal conjugate vaccine, 13 valent, IM on: Nov-2016 Comments: jose manuel ellison Family History Unknown Family Member Name Dates Details Brother 1 Comments: Colon CA, CAD Status: Active Father Comments: Stroke, panic attacks Status: Active First Degree Relatives Comments: Siblings had Cancer, High cholesterol, Paternal side had dementia Status: Active Mother Comments: Diabetes, Heart dx, HBP Status: Active Sister 1 Comments: Ovarian dx Status: Active Sister 1 Comments: ETOH Status: Active Son 1 Comments: of bladder cancer 52 yo, tobacco abuse Status: Active Social History Name Dates Details Caffeine Use Comments: Tea occasionally & Coffee Status: Active Exercise History Comments: HP - 1-1/4 hr like to go 3 X wk Status: Active Living Situation Comments: , heterosexual Status: Active Most Recent Primary Occupation Comments: Retired Status: Active Non Drinker/No Alcohol Use Status: Active Tobacco Use Comments: Quit in 1994 Status: Active Tobacco use: Former smoker. Status: Inactive Vital Signs Date Test Result Details [id number]:00 Pulse 70 /min Comments: Pattern: Regular BP Systolic 150 mm[Hg] Comments: Patient Position: Standing; Cuff Location: Left Arm; Cuff Size: Standard BP Diastolic 80 mm[Hg] Comments: Patient Position: Standing; Cuff Location: Left Arm; Cuff Size: Standard :00 Pulse 68 /min Comments: Pattern: Regular BP Systolic 140 mm[Hg] Comments: Patient Position: Sitting; Cuff Location: Left Arm; Cuff Size: Standard BP Diastolic 80 mm[Hg] Comments: Patient Position: Sitting; Cuff Location: Left Arm; Cuff Size: Standard :59 Temperature 97.6 f Comments: Method: Temporal Pulse 70 /min Comments: Pattern: Regular Respiration Rate 20 /min Comments: Pattern: Unlabored O2 SAT 97 % Comments: Room air BP Systolic 140 mm[Hg] Comments: Patient Position: Supine; Cuff Location: Left Arm; Cuff Size: Standard BP Diastolic 80 mm[Hg] Comments: Patient Position: Supine; Cuff Location: Left Arm; Cuff Size: Standard Weight 197 lb Height 66.5 in Body Mass Index Calculated 31.32 kg/m2 Body Surface Area Calculated 2 m2 :28 Temperature 97.8 f Comments: Method: Temporal Pulse 68 /min Comments: Pattern: Regular Respiration Rate 18 /min Comments: Pattern: Unlabored O2 SAT 95 % Comments: Room air BP Systolic 114 mm[Hg] Comments: Patient Position: Sitting; Cuff Location: Left Arm; Cuff Size: Standard BP Diastolic 76 mm[Hg] Comments: Patient Position: Sitting; Cuff Location: Left Arm; Cuff Size: Standard Weight 197 lb Height 66.5 in Body Mass Index Calculated 31.32 kg/m2 Body Surface Area Calculated 2 m2 :01 Temperature 97.9 f Comments: Method: Temporal Pulse 70 /min Comments: Pattern: Regular Respiration Rate 20 /min Comments: Pattern: Unlabored O2 SAT 98 % Comments: Room air BP Systolic 114 mm[Hg] Comments: Patient Position: Sitting; Cuff Location: Left Arm; Cuff Size: Standard BP Diastolic 78 mm[Hg] Comments: Patient Position: Sitting; Cuff Location: Left Arm; Cuff Size: Standard Weight 198 lb Height 66.5 in Body Mass Index Calculated 31.48 kg/m2 Body Surface Area Calculated 2 m2 :51 Temperature 97.6 f Comments: Method: Temporal Pulse 70 /min Comments: Pattern: Regular Respiration Rate 20 /min Comments: Pattern: Unlabored O2 SAT 98 % Comments: Room air BP Systolic 118 mm[Hg] Comments: Patient Position: Sitting; Cuff Location: Left Arm; Cuff Size: Standard BP Diastolic 76 mm[Hg] Comments: Patient Position: Sitting; Cuff Location: Left Arm; Cuff Size: Standard Weight 201 lb Height 66.5 in Body Mass Index Calculated 31.96 kg/m2 Body Surface Area Calculated 2.02 m2 :01 Temperature 97.5 f Comments: Method: Temporal Pulse 72 /min Comments: Pattern: Regular Respiration Rate 16 /min Comments: Pattern: Unlabored BP Systolic 122 mm[Hg] Comments: Patient Position: Sitting; Cuff Location: Left Arm; Cuff Size: Standard BP Diastolic 62 mm[Hg] Comments: Patient Position: Sitting; Cuff Location: Left Arm; Cuff Size: Standard Weight 205 lb Height 66.5 in Body Mass Index Calculated 32.59 kg/m2 Body Surface Area Calculated 2.03 m2 :20 Temperature 98.5 f Comments: Method: Oral Pulse 67 /min Comments: Pattern: Regular Respiration Rate 16 /min O2 SAT 93 % Comments: Room air BP Systolic 140 mm[Hg] Comments: Patient Position: Sitting BP Diastolic 76 mm[Hg] Comments: Patient Position: Sitting Weight 205 lb Height 66.5 in Body Mass Index Calculated 32.59 kg/m2 Body Surface Area Calculated 2.03 m2 :51 Pulse 64 /min Comments: Pattern: Regular BP Systolic 154 mm[Hg] Comments: Patient Position: Standing; Cuff Location: Left Arm; Cuff Size: Standard BP Diastolic 78 mm[Hg] Comments: Patient Position: Standing; Cuff Location: Left Arm; Cuff Size: Standard :51 Pulse 62 /min Comments: Pattern: Regular BP Systolic 146 mm[Hg] Comments: Patient Position: Sitting; Cuff Location: Left Arm; Cuff Size: Standard BP Diastolic 78 mm[Hg] Comments: Patient Position: Sitting; Cuff Location: Left Arm; Cuff Size: Standard :50 Temperature 97.9 f Comments: Method: Temporal Pulse 64 /min Comments: Pattern: Regular Respiration Rate 20 /min Comments: Pattern: Unlabored O2 SAT 99 % Comments: Room air BP Systolic 160 mm[Hg] Comments: Patient Position: Supine; Cuff Location: Left Arm; Cuff Size: Standard BP Diastolic 80 mm[Hg] Comments: Patient Position: Supine; Cuff Location: Left Arm; Cuff Size: Standard Weight 205 lb Height 66.5 in Body Mass Index Calculated 32.59 kg/m2 Body Surface Area Calculated 2.03 m2 :17 Pulse 64 /min Comments: Pattern: Regular BP Systolic 110 mm[Hg] Comments: Patient Position: Sitting BP Diastolic 70 mm[Hg] Comments: Patient Position: Sitting :16 Pulse 68 /min Comments: Pattern: Regular BP Systolic 110 mm[Hg] Comments: Patient Position: Sitting BP Diastolic 70 mm[Hg] Comments: Patient Position: Sitting :15 Pulse 64 /min Comments: Pattern: Regular Respiration Rate 18 /min O2 SAT 97 % Comments: Room air BP Systolic 132 mm[Hg] Comments: Patient Position: Supine BP Diastolic 70 mm[Hg] Comments: Patient Position: Supine :25 Temperature 97.6 f Comments: Method: Temporal Pulse 80 /min Comments: Pattern: Regular Respiration Rate 20 /min Comments: Pattern: Unlabored O2 SAT 97 % Comments: Room air BP Systolic 130 mm[Hg] Comments: Patient Position: Sitting; Cuff Location: Left Arm; Cuff Size: Standard BP Diastolic 80 mm[Hg] Comments: Patient Position: Sitting; Cuff Location: Left Arm; Cuff Size: Standard Weight 205 lb Height 66.5 in Body Mass Index Calculated 32.59 kg/m2 Body Surface Area Calculated 2.03 m2 :20 Temperature 97.6 f Comments: Method: Temporal Pulse 74 /min Comments: Pattern: Regular Respiration Rate 20 /min Comments: Pattern: Unlabored O2 SAT 94 % Comments: Room air BP Systolic 120 mm[Hg] Comments: Patient Position: Sitting; Cuff Location: Left Arm; Cuff Size: Standard BP Diastolic 70 mm[Hg] Comments: Patient Position: Sitting; Cuff Location: Left Arm; Cuff Size: Standard Weight 205 lb Height 66.5 in Body Mass Index Calculated 32.59 kg/m2 Body Surface Area Calculated 2.03 m2 :06 Temperature 98.5 f Comments: Method: Temporal Pulse 80 /min Comments: Pattern: Regular Respiration Rate 16 /min Comments: Pattern: Unlabored O2 SAT 98 % Comments: Room air BP Systolic 118 mm[Hg] Comments: Patient Position: Sitting; Cuff Location: Left Arm; Cuff Size: Standard BP Diastolic 70 mm[Hg] Comments: Patient Position: Sitting; Cuff Location: Left Arm; Cuff Size: Standard Weight 202 lb Height 66.5 in Body Mass Index Calculated 32.11 kg/m2 Body Surface Area Calculated 2.02 m2 :23 Temperature 97.1 f Comments: Method: Temporal Pulse 72 /min Comments: Pattern: Regular Respiration Rate 20 /min Comments: Pattern: Unlabored O2 SAT 98 % Comments: Room air BP Systolic 116 mm[Hg] Comments: Patient Position: Sitting; Cuff Location: Left Arm; Cuff Size: Standard BP Diastolic 78 mm[Hg] Comments: Patient Position: Sitting; Cuff Location: Left Arm; Cuff Size: Standard Weight 202 lb Height 66.5 in Body Mass Index Calculated 32.11 kg/m2 Body Surface Area Calculated 2.02 m2 :10 Temperature 97.6 f Comments: Method: Temporal Pulse 70 /min Comments: Pattern: Regular Respiration Rate 20 /min Comments: Pattern: Unlabored O2 SAT 98 % Comments: Room air BP Systolic 142 mm[Hg] Comments: Patient Position: Sitting; Cuff Location: Left Arm; Cuff Size: Standard BP Diastolic 70 mm[Hg] Comments: Patient Position: Sitting; Cuff Location: Left Arm; Cuff Size: Standard Weight 200 lb Height 66.5 in Body Mass Index Calculated 31.8 kg/m2 Body Surface Area Calculated 2.01 m2 :49 BP Systolic 164 mm[Hg] Comments: Patient Position: Sitting BP Diastolic 88 mm[Hg] Comments: Patient Position: Sitting :53 Temperature 97.6 f Comments: Method: Temporal Pulse 74 /min Comments: Pattern: Regular Respiration Rate 20 /min Comments: Pattern: Unlabored O2 SAT 97 % Comments: Room air BP Systolic 140 mm[Hg] Comments: Patient Position: Sitting; Cuff Location: Left Arm; Cuff Size: Standard BP Diastolic 80 mm[Hg] Comments: Patient Position: Sitting; Cuff Location: Left Arm; Cuff Size: Standard Weight 207 lb Height 67.5 in Body Mass Index Calculated 31.94 kg/m2 Body Surface Area Calculated 2.06 m2 :50 Temperature 97.7 f Comments: Method: Temporal Pulse 73 /min Comments: Pattern: Regular Respiration Rate 16 /min Comments: Pattern: Unlabored O2 SAT 98 % Comments: Room air BP Systolic 130 mm[Hg] Comments: Patient Position: Sitting; Cuff Location: Left Arm; Cuff Size: Standard BP Diastolic 70 mm[Hg] Comments: Patient Position: Sitting; Cuff Location: Left Arm; Cuff Size: Standard Weight 207 lb Height 67.5 in Body Mass Index Calculated 31.94 kg/m2 Body Surface Area Calculated 2.06 m2 :56 Temperature 97.1 f Comments: Method: Temporal Pulse 68 /min Comments: Pattern: Regular Respiration Rate 20 /min Comments: Pattern: Unlabored O2 SAT 97 % Comments: Room air BP Systolic 120 mm[Hg] Comments: Patient Position: Sitting; Cuff Location: Left Arm; Cuff Size: Large BP Diastolic 72 mm[Hg] Comments: Patient Position: Sitting; Cuff Location: Left Arm; Cuff Size: Large Weight 207 lb Height 67.5 in Body Mass Index Calculated 31.94 kg/m2 Body Surface Area Calculated 2.06 m2 :20 Temperature 96.8 f Comments: Method: Temporal Pulse 71 /min Comments: Pattern: Regular Respiration Rate 16 /min Comments: Pattern: Unlabored O2 SAT 98 % Comments: Room air BP Systolic 120 mm[Hg] Comments: Patient Position: Sitting; Cuff Location: Left Arm; Cuff Size: Standard BP Diastolic 62 mm[Hg] Comments: Patient Position: Sitting; Cuff Location: Left Arm; Cuff Size: Standard Weight 207.25 lb Height 67.5 in Body Mass Index Calculated 31.98 kg/m2 Body Surface Area Calculated 2.06 m2 :25 Temperature 97.9 f Comments: Method: Temporal Pulse 60 /min Comments: Pattern: Regular Respiration Rate 20 /min Comments: Pattern: Unlabored O2 SAT 97 % Comments: Room air BP Systolic 118 mm[Hg] Comments: Patient Position: Sitting; Cuff Location: Left Arm; Cuff Size: Standard BP Diastolic 78 mm[Hg] Comments: Patient Position: Sitting; Cuff Location: Left Arm; Cuff Size: Standard Weight 207 lb Height 67.5 in Body Mass Index Calculated 31.94 kg/m2 Body Surface Area Calculated 2.06 m2 :36 Temperature 96.8 f Comments: Method: Tympanic Pulse 69 /min Comments: Pattern: Regular Respiration Rate 18 /min Comments: Pattern: Unlabored O2 SAT 97 % Comments: Room air BP Systolic 122 mm[Hg] Comments: Patient Position: Sitting; Cuff Location: Left Arm; Cuff Size: Standard BP Diastolic 64 mm[Hg] Comments: Patient Position: Sitting; Cuff Location: Left Arm; Cuff Size: Standard Weight 207 lb Height 67.5 in Body Mass Index Calculated 31.94 kg/m2 Body Surface Area Calculated 2.06 m2 :51 Temperature 97.6 f Comments: Method: Temporal Pulse 74 /min Comments: Pattern: Regular Respiration Rate 18 /min Comments: Pattern: Unlabored O2 SAT 98 % Comments: Room air BP Systolic 120 mm[Hg] Comments: Patient Position: Sitting; Cuff Location: Left Arm; Cuff Size: Standard BP Diastolic 80 mm[Hg] Comments: Patient Position: Sitting; Cuff Location: Left Arm; Cuff Size: Standard Weight 202 lb Height 67.5 in Body Mass Index Calculated 31.17 kg/m2 Body Surface Area Calculated 2.04 m2 :28 Temperature 97.2 f Comments: Method: Temporal Pulse 68 /min Comments: Pattern: Regular Respiration Rate 18 /min Comments: Pattern: Unlabored O2 SAT 95 % Comments: Room air BP Systolic 110 mm[Hg] Comments: Patient Position: Sitting; Cuff Location: Left Arm; Cuff Size: Large BP Diastolic 70 mm[Hg] Comments: Patient Position: Sitting; Cuff Location: Left Arm; Cuff Size: Large Weight 200 lb Height 67.5 in Body Mass Index Calculated 30.86 kg/m2 Body Surface Area Calculated 2.03 m2 :17 Temperature 97.4 f Comments: Method: Temporal Pulse 72 /min Comments: Pattern: Regular Respiration Rate 16 /min Comments: Pattern: Unlabored O2 SAT 97 % Comments: Room air BP Systolic 142 mm[Hg] Comments: Patient Position: Sitting; Cuff Location: Left Arm; Cuff Size: Standard BP Diastolic 76 mm[Hg] Comments: Patient Position: Sitting; Cuff Location: Left Arm; Cuff Size: Standard Weight 206 lb Height 67.5 in Body Mass Index Calculated 31.79 kg/m2 Body Surface Area Calculated 2.06 m2 :19 Temperature 97.6 f Comments: Method: Temporal Pulse 68 /min Comments: Pattern: Regular Respiration Rate 18 /min Comments: Pattern: Unlabored O2 SAT 97 % Comments: Room air BP Systolic 140 mm[Hg] Comments: Patient Position: Sitting; Cuff Location: Left Arm; Cuff Size: Standard BP Diastolic 80 mm[Hg] Comments: Patient Position: Sitting; Cuff Location: Left Arm; Cuff Size: Standard Weight 206 lb Height 67.5 in Body Mass Index Calculated 31.79 kg/m2 Body Surface Area Calculated 2.06 m2 :49 Temperature 96.8 f Comments: Method: Oral Pulse 81 /min Comments: Pattern: Regular Respiration Rate 16 /min Comments: Pattern: Unlabored O2 SAT 98 % Comments: Room air BP Systolic 140 mm[Hg] Comments: Patient Position: Sitting; Cuff Location: Left Arm; Cuff Size: Standard BP Diastolic 70 mm[Hg] Comments: Patient Position: Sitting; Cuff Location: Left Arm; Cuff Size: Standard Weight 207 lb Height 67.5 in Body Mass Index Calculated 31.94 kg/m2 Body Surface Area Calculated 2.06 m2 :20 Pulse 64 /min Comments: Pattern: Regular Respiration Rate 16 /min Comments: Pattern: Unlabored O2 SAT 98 % Comments: Room air BP Systolic 138 mm[Hg] Comments: Patient Position: Sitting; Cuff Location: Left Arm; Cuff Size: Standard BP Diastolic 68 mm[Hg] Comments: Patient Position: Sitting; Cuff Location: Left Arm; Cuff Size: Standard Weight 207 lb Height 67.5 in Body Mass Index Calculated 31.94 kg/m2 Body Surface Area Calculated 2.06 m2 :43 Temperature 95.9 f Pulse 76 /min Comments: Pattern: Regular Respiration Rate 18 /min Comments: Pattern: Unlabored O2 SAT 97 % Comments: Room air BP Systolic 138 mm[Hg] Comments: Patient Position: Sitting; Cuff Location: Left Arm; Cuff Size: Standard BP Diastolic 76 mm[Hg] Comments: Patient Position: Sitting; Cuff Location: Left Arm; Cuff Size: Standard Weight 205 lb Height 67.5 in Body Mass Index Calculated 31.63 kg/m2 Body Surface Area Calculated 2.05 m2 :46 Temperature 97.9 f Comments: Method: Temporal Pulse 64 /min Comments: Pattern: Regular Respiration Rate 20 /min Comments: Pattern: Unlabored O2 SAT 98 % Comments: Room air BP Systolic 120 mm[Hg] Comments: Patient Position: Sitting; Cuff Location: Left Arm; Cuff Size: Standard BP Diastolic 78 mm[Hg] Comments: Patient Position: Sitting; Cuff Location: Left Arm; Cuff Size: Standard Weight 209 lb Height 67.5 in Body Mass Index Calculated 32.25 kg/m2 Body Surface Area Calculated 2.07 m2 :03 Temperature 97.8 f Comments: Method: Oral Pulse 74 /min Comments: Pattern: Regular Respiration Rate 16 /min O2 SAT 97 % Comments: Room air BP Systolic 122 mm[Hg] Comments: Patient Position: Sitting BP Diastolic 76 mm[Hg] Comments: Patient Position: Sitting Weight 209 lb Height 67.5 in Body Mass Index Calculated 32.25 kg/m2 Body Surface Area Calculated 2.07 m2 :56 Temperature 97 f Comments: Method: Oral Pulse 84 /min Comments: Pattern: Regular Respiration Rate 18 /min Comments: Pattern: Unlabored O2 SAT 94 % Comments: Room air BP Systolic 122 mm[Hg] Comments: Patient Position: Sitting; Cuff Location: Left Arm; Cuff Size: Standard BP Diastolic 80 mm[Hg] Comments: Patient Position: Sitting; Cuff Location: Left Arm; Cuff Size: Standard Weight 204 lb Height 67.5 in Body Mass Index Calculated 31.48 kg/m2 Body Surface Area Calculated 2.05 m2 :31 Temperature 97.8 f Comments: Method: Oral Pulse 76 /min Comments: Pattern: Regular Respiration Rate 20 /min Comments: Pattern: Unlabored BP Systolic 130 mm[Hg] Comments: Patient Position: Sitting; Cuff Location: Left Arm; Cuff Size: Standard BP Diastolic 78 mm[Hg] Comments: Patient Position: Sitting; Cuff Location: Left Arm; Cuff Size: Standard Weight 200 lb Height 67.5 in Body Mass Index Calculated 30.86 kg/m2 Body Surface Area Calculated 2.03 m2 :18 Pulse 68 /min Comments: Pattern: Regular Respiration Rate 16 /min Comments: Pattern: Unlabored O2 SAT 97 % Comments: Room air BP Systolic 120 mm[Hg] Comments: Patient Position: Sitting; Cuff Location: Left Arm; Cuff Size: Standard BP Diastolic 78 mm[Hg] Comments: Patient Position: Sitting; Cuff Location: Left Arm; Cuff Size: Standard Weight 204 lb Height 67.5 in Body Mass Index Calculated 31.48 kg/m2 Body Surface Area Calculated 2.05 m2 :36 Temperature 99 f Comments: Method: Oral Pulse 74 /min Comments: Pattern: Regular Respiration Rate 18 /min O2 SAT 94 % Comments: Room air BP Systolic 120 mm[Hg] Comments: Patient Position: Sitting; Cuff Location: Left Arm; Cuff Size: Standard BP Diastolic 80 mm[Hg] Comments: Patient Position: Sitting; Cuff Location: Left Arm; Cuff Size: Standard Weight 209 lb Height 67.5 in Body Mass Index Calculated 32.25 kg/m2 Body Surface Area Calculated 2.07 m2 :36 Temperature 72 f Comments: Method: Temporal Pulse 72 /min Comments: Pattern: Regular Respiration Rate 16 /min Comments: Pattern: Unlabored O2 SAT 98 % Comments: Room air BP Systolic 118 mm[Hg] Comments: Patient Position: Sitting; Cuff Location: Left Arm; Cuff Size: Standard BP Diastolic 82 mm[Hg] Comments: Patient Position: Sitting; Cuff Location: Left Arm; Cuff Size: Standard Weight 209 lb Height 67.5 in Body Mass Index Calculated 32.25 kg/m2 Body Surface Area Calculated 2.07 m2 :53 Pulse 76 /min Comments: Pattern: Regular Respiration Rate 16 /min O2 SAT 96 % Comments: Room air BP Systolic 130 mm[Hg] Comments: Patient Position: Sitting BP Diastolic 80 mm[Hg] Comments: Patient Position: Sitting Weight 209 lb Height 67.5 in Body Mass Index Calculated 32.25 kg/m2 Body Surface Area Calculated 2.07 m2 :16 Temperature 97.6 f Comments: Method: Oral Pulse 70 /min Comments: Pattern: Regular Respiration Rate 20 /min Comments: Pattern: Unlabored O2 SAT 98 % Comments: Room air BP Systolic 120 mm[Hg] Comments: Patient Position: Sitting; Cuff Location: Left Arm; Cuff Size: Standard BP Diastolic 78 mm[Hg] Comments: Patient Position: Sitting; Cuff Location: Left Arm; Cuff Size: Standard Weight 210 lb Height 67.5 in Body Mass Index Calculated 32.4 kg/m2 Body Surface Area Calculated 2.08 m2 :48 Temperature 97.8 f Comments: Method: Oral Pulse 70 /min Comments: Pattern: Regular Respiration Rate 20 /min Comments: Pattern: Unlabored BP Systolic 130 mm[Hg] Comments: Patient Position: Sitting; Cuff Location: Left Arm; Cuff Size: Standard BP Diastolic 78 mm[Hg] Comments: Patient Position: Sitting; Cuff Location: Left Arm; Cuff Size: Standard Weight 207 lb Height 67.5 in Body Mass Index Calculated 31.94 kg/m2 Body Surface Area Calculated 2.06 m2 :00 Pulse 74 /min Comments: Pattern: Regular BP Systolic 126 mm[Hg] Comments: Patient Position: Standing; Cuff Location: Left Arm; Cuff Size: Standard BP Diastolic 70 mm[Hg] Comments: Patient Position: Standing; Cuff Location: Left Arm; Cuff Size: Standard :00 Pulse 74 /min Comments: Pattern: Regular BP Systolic 118 mm[Hg] Comments: Patient Position: Sitting; Cuff Location: Left Arm; Cuff Size: Standard BP Diastolic 74 mm[Hg] Comments: Patient Position: Sitting; Cuff Location: Left Arm; Cuff Size: Standard :59 Temperature 97.6 f Comments: Method: Oral Pulse 70 /min Comments: Pattern: Regular Respiration Rate 20 /min Comments: Pattern: Unlabored BP Systolic 110 mm[Hg] Comments: Patient Position: Supine; Cuff Location: Left Arm; Cuff Size: Standard BP Diastolic 70 mm[Hg] Comments: Patient Position: Supine; Cuff Location: Left Arm; Cuff Size: Standard Weight 204 lb Height 67.5 in Body Mass Index Calculated 31.48 kg/m2 Body Surface Area Calculated 2.05 m2 :23 Temperature 98 f Comments: Method: Oral Pulse 68 /min Comments: Pattern: Regular Respiration Rate 18 /min Comments: Pattern: Unlabored BP Systolic 120 mm[Hg] Comments: Patient Position: Sitting; Cuff Location: Left Arm; Cuff Size: Standard BP Diastolic 74 mm[Hg] Comments: Patient Position: Sitting; Cuff Location: Left Arm; Cuff Size: Standard Weight 204 lb Height 67.5 in Body Mass Index Calculated 31.48 kg/m2 Body Surface Area Calculated 2.05 m2 :55 Temperature 98.1 f Comments: Method: Oral Pulse 70 /min Comments: Pattern: Regular Respiration Rate 18 /min Comments: Pattern: Unlabored BP Systolic 122 mm[Hg] Comments: Patient Position: Sitting; Cuff Location: Left Arm; Cuff Size: Standard BP Diastolic 78 mm[Hg] Comments: Patient Position: Sitting; Cuff Location: Left Arm; Cuff Size: Standard Weight 206 lb Height 67.5 in Body Mass Index Calculated 31.79 kg/m2 Body Surface Area Calculated 2.06 m2 :58 Comments: monitor state Temperature 97.3 f Comments: Method: Temporal Pulse 80 /min Comments: Pattern: Regular Respiration Rate 16 /min Comments: Pattern: Unlabored BP Systolic 140 mm[Hg] Comments: Patient Position: Sitting; Cuff Location: Left Arm; Cuff Size: Standard BP Diastolic 76 mm[Hg] Comments: Patient Position: Sitting; Cuff Location: Left Arm; Cuff Size: Standard Weight 205 lb Height 67.5 in Body Mass Index Calculated 31.63 kg/m2 Body Surface Area Calculated 2.05 m2 :29 Temperature 98.7 f Comments: Method: Oral Pulse 68 /min Comments: Pattern: Regular Respiration Rate 16 /min BP Systolic 142 mm[Hg] Comments: Patient Position: Sitting; Cuff Location: Left Arm; Cuff Size: Standard BP Diastolic 84 mm[Hg] Comments: Patient Position: Sitting; Cuff Location: Left Arm; Cuff Size: Standard Weight 205 lb Height 67.5 in Body Mass Index Calculated 31.63 kg/m2 Body Surface Area Calculated 2.05 m2 :18 Temperature 98.1 f Comments: Method: Oral Pulse 64 /min Comments: Pattern: Regular Respiration Rate 20 /min Comments: Pattern: Unlabored BP Systolic 128 mm[Hg] Comments: Patient Position: Sitting; Cuff Location: Left Arm; Cuff Size: Standard BP Diastolic 78 mm[Hg] Comments: Patient Position: Sitting; Cuff Location: Left Arm; Cuff Size: Standard Weight 205 lb Height 67.5 in Body Mass Index Calculated 31.63 kg/m2 Body Surface Area Calculated 2.05 m2 :32 Temperature 97.4 f Comments: Method: Oral Pulse 64 /min Comments: Pattern: Regular Respiration Rate 16 /min Comments: Pattern: Unlabored BP Systolic 120 mm[Hg] Comments: Patient Position: Sitting; Cuff Location: Left Arm; Cuff Size: Standard BP Diastolic 76 mm[Hg] Comments: Patient Position: Sitting; Cuff Location: Left Arm; Cuff Size: Standard Weight 203 lb Height 67.5 in Body Mass Index Calculated 31.32 kg/m2 Body Surface Area Calculated 2.05 m2 :18 Temperature 98 f Comments: Method: Oral Pulse 70 /min Comments: Pattern: Regular Respiration Rate 18 /min BP Systolic 142 mm[Hg] Comments: Patient Position: Sitting; Cuff Location: Left Arm; Cuff Size: Standard BP Diastolic 82 mm[Hg] Comments: Patient Position: Sitting; Cuff Location: Left Arm; Cuff Size: Standard Weight 203 lb Height 67.5 in Body Mass Index Calculated 31.32 kg/m2 Body Surface Area Calculated 2.05 m2 :50 Temperature 97.8 f Comments: Method: Oral Pulse 64 /min Comments: Pattern: Regular Respiration Rate 20 /min Comments: Pattern: Unlabored BP Systolic 118 mm[Hg] Comments: Patient Position: Sitting; Cuff Location: Left Arm; Cuff Size: Standard BP Diastolic 78 mm[Hg] Comments: Patient Position: Sitting; Cuff Location: Left Arm; Cuff Size: Standard Weight 203 lb Height 67.5 in Body Mass Index Calculated 31.32 kg/m2 Body Surface Area Calculated 2.05 m2 :22 Temperature 97.6 f Comments: Method: Oral Pulse 64 /min Comments: Pattern: Regular Respiration Rate 18 /min Comments: Pattern: Unlabored BP Systolic 110 mm[Hg] Comments: Patient Position: Sitting; Cuff Location: Left Arm; Cuff Size: Standard BP Diastolic 70 mm[Hg] Comments: Patient Position: Sitting; Cuff Location: Left Arm; Cuff Size: Standard Weight 200 lb Height 67.5 in Body Mass Index Calculated 30.86 kg/m2 Body Surface Area Calculated 2.03 m2 :58 Temperature 98 f Comments: Method: Oral Pulse 72 /min Comments: Pattern: Regular Respiration Rate 16 /min Comments: Pattern: Unlabored BP Systolic 110 mm[Hg] Comments: Patient Position: Sitting; Cuff Location: Left Arm; Cuff Size: Large BP Diastolic 72 mm[Hg] Comments: Patient Position: Sitting; Cuff Location: Left Arm; Cuff Size: Large Weight 200 lb Height 67.5 in Body Mass Index Calculated 30.86 kg/m2 Body Surface Area Calculated 2.03 m2 :39 Temperature 98 f Comments: Method: Oral Pulse 72 /min Comments: Pattern: Regular Respiration Rate 20 /min Comments: Pattern: Unlabored BP Systolic 120 mm[Hg] Comments: Patient Position: Sitting; Cuff Location: Left Arm; Cuff Size: Standard BP Diastolic 74 mm[Hg] Comments: Patient Position: Sitting; Cuff Location: Left Arm; Cuff Size: Standard Weight 200 lb Height 67.5 in Body Mass Index Calculated 30.86 kg/m2 Body Surface Area Calculated 2.03 m2 :41 Temperature 97.6 f Comments: Method: Oral Pulse 68 /min Comments: Pattern: Regular Respiration Rate 16 /min BP Systolic 122 mm[Hg] Comments: Patient Position: Sitting; Cuff Location: Left Arm; Cuff Size: Standard BP Diastolic 72 mm[Hg] Comments: Patient Position: Sitting; Cuff Location: Left Arm; Cuff Size: Standard Weight 200 lb Height 67.5 in Body Mass Index Calculated 30.86 kg/m2 Body Surface Area Calculated 2.03 m2 :51 Temperature 97.9 f Comments: Method: Oral Pulse 68 /min Comments: Pattern: Regular Respiration Rate 18 /min Comments: Pattern: Unlabored BP Systolic 120 mm[Hg] Comments: Patient Position: Sitting; Cuff Location: Left Arm; Cuff Size: Standard BP Diastolic 70 mm[Hg] Comments: Patient Position: Sitting; Cuff Location: Left Arm; Cuff Size: Standard Weight 200 lb Height 67.5 in Body Mass Index Calculated 30.86 kg/m2 Body Surface Area Calculated 2.03 m2 [id number] Temperature 97.9 f Comments: Method: Oral Pulse 68 /min Comments: Pattern: Regular Respiration Rate 18 /min Comments: Pattern: Unlabored BP Systolic 118 mm[Hg] Comments: Patient Position: Sitting; Cuff Location: Left Arm; Cuff Size: Standard BP Diastolic 70 mm[Hg] Comments: Patient Position: Sitting; Cuff Location: Left Arm; Cuff Size: Standard Weight 201 lb Height 67.5 in Body Mass Index Calculated 31.02 kg/m2 Body Surface Area Calculated 2.04 m2 :35 Temperature 97.3 f Comments: Method: Oral Pulse 80 /min Comments: Pattern: Regular O2 SAT 100 % Comments: Room air BP Systolic 140 mm[Hg] Comments: Patient Position: Sitting; Cuff Location: Left Arm; Cuff Size: Standard BP Diastolic 82 mm[Hg] Comments: Patient Position: Sitting; Cuff Location: Left Arm; Cuff Size: Standard Weight 199 lb Height 67.5 in Body Mass Index Calculated 30.71 kg/m2 Body Surface Area Calculated 2.03 m2 :18 Temperature 98.4 f Comments: Method: Oral Pulse 82 /min Comments: Pattern: Regular Respiration Rate 96 /min Comments: Pattern: Unlabored BP Systolic 112 mm[Hg] Comments: Patient Position: Sitting; Cuff Location: Left Arm; Cuff Size: Standard BP Diastolic 70 mm[Hg] Comments: Patient Position: Sitting; Cuff Location: Left Arm; Cuff Size: Standard Weight 199 lb Height 67.5 in Body Mass Index Calculated 30.71 kg/m2 Body Surface Area Calculated 2.03 m2 :29 Temperature 97.6 f Comments: Method: Oral Pulse 70 /min Comments: Pattern: Regular Respiration Rate 18 /min Comments: Pattern: Unlabored BP Systolic 114 mm[Hg] Comments: Patient Position: Sitting; Cuff Location: Left Arm; Cuff Size: Standard BP Diastolic 74 mm[Hg] Comments: Patient Position: Sitting; Cuff Location: Left Arm; Cuff Size: Standard Weight 199 lb Height 67.5 in Body Mass Index Calculated 30.71 kg/m2 Body Surface Area Calculated 2.03 m2 :33 Temperature 98.1 f Comments: Method: Oral Pulse 68 /min Comments: Pattern: Regular Respiration Rate 18 /min Comments: Pattern: Unlabored BP Systolic 114 mm[Hg] Comments: Patient Position: Sitting; Cuff Location: Left Arm; Cuff Size: Standard BP Diastolic 70 mm[Hg] Comments: Patient Position: Sitting; Cuff Location: Left Arm; Cuff Size: Standard Weight 195 lb Height 67.5 in Body Mass Index Calculated 30.09 kg/m2 Body Surface Area Calculated 2.01 m2 :38 Temperature 97.6 f Comments: Method: Oral Pulse 68 /min Comments: Pattern: Regular Respiration Rate 18 /min Comments: Pattern: Unlabored BP Systolic 116 mm[Hg] Comments: Patient Position: Sitting; Cuff Location: Left Arm; Cuff Size: Standard BP Diastolic 74 mm[Hg] Comments: Patient Position: Sitting; Cuff Location: Left Arm; Cuff Size: Standard Weight 197 lb Height 67.5 in Body Mass Index Calculated 30.4 kg/m2 Body Surface Area Calculated 2.02 m2 :46 Temperature 97.6 f Comments: Method: Oral Pulse 62 /min Comments: Pattern: Regular Respiration Rate 18 /min Comments: Pattern: Unlabored BP Systolic 120 mm[Hg] Comments: Patient Position: Sitting; Cuff Location: Left Arm; Cuff Size: Standard BP Diastolic 76 mm[Hg] Comments: Patient Position: Sitting; Cuff Location: Left Arm; Cuff Size: Standard Weight 196 lb Height 67.5 in Body Mass Index Calculated 30.24 kg/m2 Body Surface Area Calculated 2.02 m2 :25 Temperature 97.6 f Comments: Method: Oral Pulse 64 /min Comments: Pattern: Regular Respiration Rate 18 /min Comments: Pattern: Unlabored BP Systolic 118 mm[Hg] Comments: Patient Position: Sitting; Cuff Location: Left Arm; Cuff Size: Standard BP Diastolic 74 mm[Hg] Comments: Patient Position: Sitting; Cuff Location: Left Arm; Cuff Size: Standard Weight 196 lb Height 67.5 in Body Mass Index Calculated 30.24 kg/m2 Body Surface Area Calculated 2.02 m2 :18 Temperature 97.6 f Comments: Method: Oral Pulse 64 /min Comments: Pattern: Regular Respiration Rate 18 /min Comments: Pattern: Unlabored BP Systolic 140 mm[Hg] Comments: Patient Position: Sitting; Cuff Location: Left Arm; Cuff Size: Standard BP Diastolic 80 mm[Hg] Comments: Patient Position: Sitting; Cuff Location: Left Arm; Cuff Size: Standard Weight 194 lb Height 67.5 in Body Mass Index Calculated 29.94 kg/m2 Body Surface Area Calculated 2.01 m2 :00 Temperature 97.7 f Comments: Method: Oral Pulse 68 /min Comments: Pattern: Regular Respiration Rate 18 /min Comments: Pattern: Unlabored BP Systolic 118 mm[Hg] Comments: Patient Position: Sitting; Cuff Location: Left Arm; Cuff Size: Standard BP Diastolic 70 mm[Hg] Comments: Patient Position: Sitting; Cuff Location: Left Arm; Cuff Size: Standard :50 Temperature 98.1 f Comments: Method: Oral Pulse 72 /min Comments: Pattern: Regular Respiration Rate 20 /min Comments: Pattern: Unlabored BP Systolic 122 mm[Hg] Comments: Patient Position: Sitting; Cuff Location: Left Arm; Cuff Size: Large BP Diastolic 64 mm[Hg] Comments: Patient Position: Sitting; Cuff Location: Left Arm; Cuff Size: Large Weight 192.375 lb :30 Pulse 68 /min Comments: Pattern: Regular Respiration Rate 18 /min Comments: Pattern: Unlabored BP Systolic 118 mm[Hg] Comments: Patient Position: Sitting; Cuff Location: Left Arm; Cuff Size: Standard BP Diastolic 78 mm[Hg] Comments: Patient Position: Sitting; Cuff Location: Left Arm; Cuff Size: Standard Weight 199 lb :47 Temperature 96.8 f Comments: Method: Oral Pulse 70 /min Comments: Pattern: Regular Respiration Rate 16 /min Comments: Pattern: Unlabored BP Systolic 114 mm[Hg] Comments: Patient Position: Sitting; Cuff Location: Left Arm; Cuff Size: Standard BP Diastolic 60 mm[Hg] Comments: Patient Position: Sitting; Cuff Location: Left Arm; Cuff Size: Standard Weight 201 lb :02 Temperature 97 f Comments: Method: Oral Pulse 60 /min Comments: Pattern: Regular Respiration Rate 18 /min Comments: Pattern: Unlabored BP Systolic 110 mm[Hg] Comments: Patient Position: Sitting; Cuff Location: Right Arm; Cuff Size: Large BP Diastolic 54 mm[Hg] Comments: Patient Position: Sitting; Cuff Location: Right Arm; Cuff Size: Large Weight 201 lb :58 Pulse 70 /min Comments: Pattern: Regular Respiration Rate 16 /min Comments: Pattern: Unlabored BP Systolic 118 mm[Hg] Comments: Patient Position: Sitting; Cuff Location: Left Arm; Cuff Size: Standard BP Diastolic 78 mm[Hg] Comments: Patient Position: Sitting; Cuff Location: Left Arm; Cuff Size: Standard Weight 202 lb :50 Pulse 70 /min Comments: Pattern: Regular Respiration Rate 16 /min Comments: Pattern: Unlabored BP Systolic 118 mm[Hg] Comments: Patient Position: Sitting; Cuff Location: Left Arm; Cuff Size: Standard BP Diastolic 76 mm[Hg] Comments: Patient Position: Sitting; Cuff Location: Left Arm; Cuff Size: Standard Weight 0 lb Height 0 in Head Circumference 0.00 cm :22 Pulse 72 /min Comments: Pattern: Regular Respiration Rate 16 /min Comments: Pattern: Unlabored BP Systolic 126 mm[Hg] Comments: Patient Position: Sitting; Cuff Location: Left Arm; Cuff Size: Standard BP Diastolic 78 mm[Hg] Comments: Patient Position: Sitting; Cuff Location: Left Arm; Cuff Size: Standard Weight 198.0313 lb Height 0 in Head Circumference 0.00 cm :00 Pulse 68 /min Comments: Pattern: Regular Respiration Rate 16 /min Comments: Pattern: Unlabored BP Systolic 118 mm[Hg] Comments: Patient Position: Sitting; Cuff Location: Left Arm; Cuff Size: Large BP Diastolic 78 mm[Hg] Comments: Patient Position: Sitting; Cuff Location: Left Arm; Cuff Size: Large Weight 203 lb Height 0 in Head Circumference 0.00 cm :21 Temperature 98 f Comments: Method: Oral Pulse 80 /min Comments: Pattern: Regular Respiration Rate 20 /min Comments: Pattern: Unlabored BP Systolic 128 mm[Hg] Comments: Patient Position: Sitting; Cuff Location: Left Arm; Cuff Size: Small BP Diastolic 82 mm[Hg] Comments: Patient Position: Sitting; Cuff Location: Left Arm; Cuff Size: Small Weight 200 lb Height 0 in Head Circumference 0.00 cm :40 Pulse 68 /min Comments: Pattern: Regular Respiration Rate 16 /min Comments: Pattern: Unlabored BP Systolic 122 mm[Hg] Comments: Patient Position: Sitting; Cuff Location: Left Arm; Cuff Size: Standard BP Diastolic 78 mm[Hg] Comments: Patient Position: Sitting; Cuff Location: Left Arm; Cuff Size: Standard Weight 0 lb Height 0 in Head Circumference 0.00 cm :04 Pulse 60 /min Comments: Pattern: Regular Respiration Rate 16 /min Comments: Pattern: Unlabored BP Systolic 126 mm[Hg] Comments: Patient Position: Sitting; Cuff Location: Left Arm; Cuff Size: Standard BP Diastolic 80 mm[Hg] Comments: Patient Position: Sitting; Cuff Location: Left Arm; Cuff Size: Standard Weight 200 lb Height 0 in Head Circumference 0.00 cm :47 Temperature 97.8 f Comments: Method: Oral Pulse 64 /min Comments: Pattern: Regular Respiration Rate 16 /min Comments: Pattern: Unlabored BP Systolic 118 mm[Hg] Comments: Patient Position: Sitting; Cuff Location: Left Arm; Cuff Size: Standard BP Diastolic 78 mm[Hg] Comments: Patient Position: Sitting; Cuff Location: Left Arm; Cuff Size: Standard Weight 204 lb Height 0 in Head Circumference 0.00 cm Results Date Description Value Details :30 HgA1C , Office (50026) HgA1C , Office 5.2 % (Normal) Range: 4.6 - 7.1 :47 LIPOPROTEIN, BLD, BY NMR Comments: PATIENT WAS FASTINGPERFORMED BY: BN [facility] [address] [id number] BY: CB [facility] Ftwyyx5663 [facility] [id number] ([id number]) LP-IR Score 52 (Abnormal) Comments: INSULIN RESISTANCE MARKER <--Insulin Sensitive Insulin Resistant--> Percentile in Reference PopulationInsulin Resistance ScoreLP-IR Score Low 25th 50th 75th High <27 27 45 63 >63LP-IR Score is inaccurate if patient is non-fasting. .The LP-IR score is a laboratory developed i [facility] that has beenassociated with insulin resistance and diabetes risk and should beused as one component of a physician's clinical assessment. TheLP-IR score listed above has not been cleared by the US Food andDrug Administration. LDL Size 20.5 nm (Normal) Comments: INTERPRETATIVE INFORMATION PARTICLE CONCENTRATION AND SIZE <--Lower CVD Risk Highe r CVD Risk--> LDL AND HDL PARTICLES Percentile in Reference Population HDL-P (total) High 75th 50th 25th Low >34.9 34.9 30.5 26.7 <26.7 . Small LDL-P Low 25th 50th 75th High <117 117 527 839 >839 . LDL Size <-Large (Pattern A)-> <-Small (Pattern B)-> 23.0 20.6 20.5 19.0 Small LDL-P and LDL Size are associated with CVD risk, but not afterLDL-P is taken into account. .These assays were developed and their performance characteristicsdetermined by [employer]. These assays have not been cleared by [place] Food and Drug Administration. The clinical utility of theselaboratory values have not been fully established. Small LDL-P 646 nmol/L (Abnormal) HDL-P (Total) 27.7 umol/L (Abnormal) Cholesterol, Total 176 mg/dL (Normal) Range: 100-199 Triglycerides 94 mg/dL (Normal) Range: 0-149 HDL-C 35 mg/dL (Abnormal) LDL-C 122 mg/dL (Abnormal) Range: 0-99 Comments: . Optimal < 100 Above optimal 100 - 129 Borderline 1 30 - 159 High 160 - 189 Very high > 189 .LDL-C is inaccurate if patient is non-fasting. LDL-P 1489 nmol/L (Abnormal) Comments: Low < 1000 Moderate 1000 - 1299 Borderline-High 1300 - 1599 High 1600 - 2000 Very High > 2000 8-Jan-98190:47 CBC with auto diff Comments: PATIENT WAS FASTINGPERFORMED BY: Sanlorenzo[address] [id number] BY: [facility] - AkronCrude AreaSt. Luke's Warren HospitalIlvker2349 [facility] [id number] ([id number]) Immature Grans (Abs) 0.0 {x10E3/uL} (Normal) Range: 0.0-0.1 Immature Granulocytes 0 % (Normal) Baso (Absolute) 0.0 {x10E3/uL} (Normal) Range: 0.0-0.2 Eos (Absolute) 0.1 {x10E3/uL} (Normal) Range: 0.0-0.4 Monocytes(Absolute) 0.3 {x10E3/uL} (Normal) Range: 0.1-0.9 Lymphs (Absolute) 1.3 {x10E3/uL} (Normal) Range: 0.7-3.1 Neutrophils (Absolute) 2.5 {x10E3/uL} (Normal) Range: 1.4-7.0 Basos 0 % (Normal) Eos 2 % (Normal) Monocytes 8 % (Normal) Lymphs 31 % (Normal) Neutrophils 59 % (Normal) Platelets 161 {x10E3/uL} (Normal) Range: 150-379 RDW 13.9 % (Normal) Range: 12.3-15.4 MCHC 33.8 g/dL (Normal) Range: 31.5-35.7 MCH 29.6 pg (Normal) Range: 26.6-33.0 MCV 87 fL (Normal) Range: 79-97 Hematocrit 41.1 % (Normal) Range: 37.5-51.0 Hemoglobin 13.9 g/dL (Normal) Range: 13.0-17.7 RBC 4.70 {x10E6/uL} (Normal) Range: 4.14-5.80 WBC 4.2 {x10E3/uL} (Normal) Range: 3.4-10.8 02-Feb-20189:47 METABOLIC PANEL, Comments: PATIENT WAS FASTINGPERFORMED BY: Sanlorenzo[address] [id number] BY: SanlorenzoSt. Luke's Warren HospitalShxgih6890 [facility] [id number] COMPREHENSIVE (90354) ALT (SGPT) 18 [iU]/L (Normal) Range: 0-44 AST (SGOT) 21 [iU]/L (Normal) Range: 0-40 Alkaline Phosphatase 58 [iU]/L (Normal) Range: 39-117 Bilirubin, Total 0.4 mg/dL (Normal) Range: 0.0-1.2 A/G Ratio 1.4 (Normal) Range: 1.2-2.2 Globulin, Total 2.9 g/dL (Normal) Range: 1.5-4.5 Albumin 4.2 g/dL (Normal) Range: 3.5-4.7 Protein, Total 7.1 g/dL (Normal) Range: 6.0-8.5 Calcium 9.1 mg/dL (Normal) Range: 8.6-10.2 Carbon Dioxide, Total 26 mmol/L (Normal) Range: 20-29 Chloride 100 mmol/L (Normal) Range: 96-106 Potassium 3.9 mmol/L (Normal) Range: 3.5-5.2 Sodium 140 mmol/L (Normal) Range: 134-144 BUN/Creatinine Ratio 15 (Normal) Range: 10-24 eGFR If Africn Am 71 mL/min/1.73 (Normal) eGFR If NonAfricn Am 62 mL/min/1.73 (Normal) Creatinine 1.11 mg/dL (Normal) Range: 0.76-1.27 BUN 17 mg/dL (Normal) Range: 8-27 Glucose 91 mg/dL (Normal) Range: 65-99 31-Oct-20179:43 PSA (Prostate Specific Comments: PATIENT NOT FASTINGPERFORMED BY: LabCoMemorial Medical CenterNmqhtx6843 [facility] [id number] Antigen), Screening (50183) Prostate Specific Ag, 1.4 ng/mL (Normal) Range: 0.0-4.0 Serum Comments: [email or web address] ECLIA methodology. .According to the [place] [employer], Serum PSA shoulddecrease and remain at undetectable levels after radicalprostatectomy. The AUA defines biochemical recurrence as an initialPSA value 0.2 ng/mL or greater followed by a subsequent confirmatoryPSA value 0.2 ng/mL or greater.Values obtained with d ifferent assay methods or kits cannot be usedinterchangeably. Results cannot be interpreted as absolute evidenceof the presence or absence of malignant disease. :03 CBC W/Diff, Automated Comments: Order Date: 10/21/17Order Info: [id number] - CBCDComments: statOrder Info: [id number] - [facility] [address]ktphxz[address] [place], [place], [id number] Absolute Lymph 1.20 {X10_3/ul} (Normal) Range: 0.83-4.51 Absolute Neut 3.1 {X10_3/uL} (Normal) Range: 2.0-7.7 IM GRAN % 0.200 % (Normal) Range: 0.0-0.9 Comments: IG% - Immature Granulocytes (promyelocytes, myelocytes andmetamyelocytes) > 1% indicates that a LEFT SHIFT is Present. BASO% 0.2 % (Normal) Range: 0-1 EO% 2.6 % (Normal) Range: 0-5 MONO% 10.1 % (Abnormal) Range: 0-10 LY% 24.1 % (Normal) Range: 19-41 NEUT% 62.8 % (Normal) Range: 47-70 MPV 9.8 fL (Normal) Range: 6.2-12.0 PLT 162 K/mm3 (Normal) Range: 150-450 RDW SD 43.8 fL (Normal) Range: 35.1-43.9 RDW CV 13.4 % (Normal) Range: 11.6-14.6 MCHC 32.8 {g/gl} (Normal) Range: 32-36 MCH 29.2 pg (Normal) Range: 27.0-32.0 MCV 89.2 fL (Normal) Range: 80-94 HCT 40.6 % (Normal) Range: 40-54 HGB 13.3 g/dL (Normal) Range: 13.0-16.5 RBC 4.55 {M/mm3} (Abnormal) Range: 4.6-6.2 WBC 5.0 K/mm3 (Normal) Range: 4.4-11.0 :03 Comprehensive Metabolic Profil Comments: Order Date: 10/21/17Order Info: [id number] - CMPOrder Info: [id number] - CRPComments: statComments: statAccess [facility] [address]kfvrc[address] [place], [place], [id number] GAP 9 (Normal) Range: 5-15 CO2 30.0 mmol/L (Normal) Range: 21.0-32.0 CL 105 mmol/L (Normal) Range: 98-107 K 3.7 mmol/L (Normal) Range: 3.5-5.1 NA 144 mmol/L (Normal) Range: 136-145 T BILI 0.70 mg/dL (Normal) Range: 0.20-1.00 ALT 30 U/L (Normal) Range: 16-61 ALK P 59 U/L (Normal) Range: 45-117 AST 21 U/L (Normal) Range: 15-37 CA 8.7 mg/dL (Normal) Range: 8.5-10.1 A/G 0.9 {RATIO} (Normal) Range: 0.9-2.4 GLOB 3.8 g/dL (Normal) Range: 2.2-4.2 ALB 3.5 g/dL (Normal) Range: 3.2-5.0 T PROT 7.3 g/dL (Normal) Range: 6.4-8.2 BUN/CRE 15.8 {RATIO} (Normal) Range: 10-20 EST GFR - AA 91 mL/min (Normal) Comments: GFR Calc EST GFR 75 mL/min (Normal) Comments: Non- GFR Calc CREAT,SERUM 1.01 mg/dL (Normal) Range: 0.70-1.30 Comments: The validity of the calculated GFR AND GFRAA in patients over70 years has not been determined. Clinical correlation isessential. BUN 16 mg/dL (Normal) Range: 7-18 GLU 78 mg/dL (Normal) Range: 74-106 Comments: Please note revised GLUCOSE reference range vdzolkkva97/02/2018. 74-Epj-088936:03 Erythrocyte Sed Rate Comments: Order Date: 10/21/17Order Info: [id number] - CBCDComments: statOrder Info: [id number] - SEDAccess [facility] [address]jfgr[address] [place], [place], [id number] SED RATE 8 mm/h (Normal) Range: 0-20 84-Gzq-577119:03 C-REACTIVE PROTEIN (67083) Comments: stat; Order Date: 10/21/17Order Info: [id number] - CMPOrder Info: [id number] - CRPComments: statComments: [facility] Nmfavcocvb7714 [place], [address] C-REACTIVE PROT 30.20 mg/L (Abnormal) Range: 0.0-3.0 Comments: C-Reactive Protein (CRP) provides useful information for thediagnosis, therapy and monitoring of inflammatory processesand associated diseases. For the evaluation of Relative Riskfor Cardiovascular Dise ase, a High Sensitivity CRP (HSCRP)should be ordered. 57-Cer-425595:25 Clostridium difficile Toxin Comments: PATIENT NOT FASTINGPERFORMED BY: H2020[facility] [id number] A+B, EIA (61151) C difficile Toxins A+B, EIA Positive (Abnormal) 67-Iiw-060065:25 AMADA CULTURE-STOOL (92561) Comments: PATIENT NOT FASTINGPERFORMED BY: Glisten6370 [facility] [id number] Information: SRC:ST SRC:ST E coli Shiga Toxin EIA Negative (Normal) Result 1 NCI (Normal) Comments: No Campylobacter species isolated. Campylobacter Culture Final report (Normal) Result 1 NSS (Normal) Comments: No Salmonella or Shigella recovered. Salmonella/Shigella Screen Final report (Normal) 70-Mby-424824:03 TSH (36378) Comments: PATIENT NOT FASTINGPERFORMED BY: Advisor Client Match Hmmsji8370 [facility] [id number] TSH 2.980 {uIU/mL} (Normal) Range: 0.450-4.500 08-Ash-826623:03 Metabolic Panel, Basic Comments: PATIENT NOT FASTINGPERFORMED BY: [employer]visor [employer] Match Rchgxs2345 [facility] [id number] (00456) Calcium 9.5 mg/dL (Normal) Range: 8.6-10.2 Carbon Dioxide, Total 25 mmol/L (Normal) Range: 18-29 Chloride 102 mmol/L (Normal) Range: 96-106 Potassium 4.8 mmol/L (Normal) Range: 3.5-5.2 Sodium 143 mmol/L (Normal) Range: 134-144 BUN/Creatinine Ratio 16 (Normal) Range: 10-24 eGFR If Africn Am 70 mL/min/1.73 (Normal) eGFR If NonAfricn Am 61 mL/min/1.73 (Normal) Creatinine 1.12 mg/dL (Normal) Range: 0.76-1.27 BUN 18 mg/dL (Normal) Range: 8-27 Glucose 91 mg/dL (Normal) Range: 65-99 03-Bpu-047621:03 CBC with auto diff (00614) Comments: PATIENT NOT FASTINGPERFORMED BY: LabCo Peosxs3840 [facility] [id number] Immature Grans (Abs) 0.0 {x10E3/uL} (Normal) Range: 0.0-0.1 Immature Granulocytes 0 % (Normal) Baso (Absolute) 0.0 {x10E3/uL} (Normal) Range: 0.0-0.2 Eos (Absolute) 0.1 {x10E3/uL} (Normal) Range: 0.0-0.4 Monocytes(Absolute) 0.5 {x10E3/uL} (Normal) Range: 0.1-0.9 Lymphs (Absolute) 1.6 {x10E3/uL} (Normal) Range: 0.7-3.1 Neutrophils (Absolute) 3.0 {x10E3/uL} (Normal) Range: 1.4-7.0 Basos 0 % (Normal) Eos 3 % (Normal) Monocytes 10 % (Normal) Lymphs 30 % (Normal) Neutrophils 57 % (Normal) Platelets 159 {x10E3/uL} (Normal) Range: 150-379 RDW 13.6 % (Normal) Range: 12.3-15.4 MCHC 33.1 g/dL (Normal) Range: 31.5-35.7 MCH 29.7 pg (Normal) Range: 26.6-33.0 MCV 90 fL (Normal) Range: 79-97 Hematocrit 41.4 % (Normal) Range: 37.5-51.0 Hemoglobin 13.7 g/dL (Normal) Range: 13.0-17.7 RBC 4.62 {x10E6/uL} (Normal) Range: 4.14-5.80 WBC 5.4 {x10E3/uL} (Normal) Range: 3.4-10.8 :34 HgA1C , Office (41765) HgA1C , Office 5.4 % (Normal) Range: 4.6 - 7.1 70-Lbr-567492:56 Rapid Flu (42511 x 2) Influenza A Ag Negative (Normal) :21 FERRITIN (74284) Comments: PATIENT NOT FASTINGPERFORMED BY: SanlorenzoSt. Luke's Warren HospitalIcrorm6212 [facility] [id number] Ferritin, Serum 139 ng/mL (Normal) Range: 30-400 53-Tuy-540308:21 HEPATITIS PANEL (52355) Comments: PATIENT NOT FASTINGPERFORMED BY: NitroSellJohn D. Dingell [facility]6370 [facility] [id number] Hep C Virus Ab <0.1 {s/co_ratio} (Normal) Range: 0.0-0.9 Comments: Negative: < 0.8 Indeterminate: 0.8 - 0.9 Positive: > 0.9 . The CDC recommends that a positive HCV antibody result be followed up with a HCV Nucleic Acid Amplification test (365353). Hep B Core Ab, IgM Negative (Normal) HBsAg Screen Negative (Normal) Hep A Ab, IgM Negative (Normal) :21 HEPATIC FUNCTION PANEL Comments: PATIENT NOT FASTINGPERFORMED BY: [place] 6472970 [facility] [id number] (97540) ALT (SGPT) 33 [iU]/L (Normal) Range: 0-44 AST (SGOT) 23 [iU]/L (Normal) Range: 0-40 Alkaline Phosphatase, S 68 [iU]/L (Normal) Range: 39-117 Bilirubin, Direct 0.11 mg/dL (Normal) Range: 0.00-0.40 Bilirubin, Total 0.4 mg/dL (Normal) Range: 0.0-1.2 Albumin, Serum 4.2 g/dL (Normal) Range: 3.5-4.7 Protein, Total, Serum 7.4 g/dL (Normal) Range: 6.0-8.5 :22 HgA1C , Office (14853) HgA1C , Office 5.2 % (Normal) Range: 4.6 - 7.1 :18 AMADA CULTURE-OTHER (65636) Comments: PATIENT NOT FASTINGPERFORMED BY: Sanlorenzo Plkjou3702 [facility] [id number] Information: SRC:TH Result 1 RRF (Normal) Comments: Routine respiratory jose antonio Upper Respiratory Culture Final report (Normal) :21 Rapid Strep Test, Office (35798) Rapid Strep Test, Office Negative (Normal) 60-Ycm-43832:40 Microscopic Examination Comments: PATIENT WAS FASTINGPERFORMED BY: [employer] [id number] BY: Advisor Client Match Vyowlg9702 [facility] [id number] Bacteria None seen (Normal) Mucus Threads Present (Normal) Epithelial Cells (non renal) None seen {/hpf} (Normal) Range: 0 - 10 RBC 0-2 {/hpf} (Normal) Range: 0 - 2 WBC 0-5 {/hpf} (Normal) Range: 0 - 5 24-Njh-53339:19 AMADA CULTURE-OTHER (83792) Comments: PATIENT NOT FASTINGPERFORMED BY: Sanlorenzo [address] [place] [address] [id number] Information: SRC:TH Result 1 RRF (Normal) Comments: Routine respiratory jose antonio Upper Respiratory Culture Final report (Normal) 59-Bea-614250:27 Rapid Strep Test, Office (14330) Rapid Strep Test, Office Negative (Normal) 25-Ixi-98859:40 URINALYSIS, W/ MICRO Comments: PATIENT WAS FASTINGPERFORMED BY: [employer] [id number] BY: Advisor Client Match Szjjvp[address] [place] [address] [id number] (59930) Microscopic Examination See below: (Normal) Comments: Microscopic was indicated and was performed. Nitrite, Urine Negative (Normal) Urobilinogen,Semi-Qn 0.2 mg/dL (Normal) Range: 0.2-1.0 Bilirubin Negative (Normal) Occult Blood Negative (Normal) Ketones Negative (Normal) Glucose Negative (Normal) Protein Negative (Normal) WBC Esterase Trace (Abnormal) Appearance Clear (Normal) Urine-Color Yellow (Normal) pH 6.0 (Normal) Range: 5.0-7.5 Specific [place] 1.023 (Normal) Range: 1.005-1.030 :40 METABOLIC PANEL, Comments: PATIENT WAS FASTINGPERFORMED BY: BN [facility] Ptghvrmkcq5002 [facility] [id number] BY: CB [facility] Rwtpxk9356 [facility] [id number] COMPREHENSIVE (06703) ALT (SGPT) 50 [iU]/L (Abnormal) Range: 0-44 AST (SGOT) 32 [iU]/L (Normal) Range: 0-40 Alkaline Phosphatase, S 56 [iU]/L (Normal) Range: 39-117 Bilirubin, Total 0.5 mg/dL (Normal) Range: 0.0-1.2 A/G Ratio 1.3 (Normal) Range: 1.2-2.2 Globulin, Total 3.1 g/dL (Normal) Range: 1.5-4.5 Albumin, Serum 4.1 g/dL (Normal) Range: 3.5-4.7 Protein, Total, Serum 7.2 g/dL (Normal) Range: 6.0-8.5 Calcium, Serum 9.3 mg/dL (Normal) Range: 8.6-10.2 Carbon Dioxide, Total 28 mmol/L (Normal) Range: 18-29 Chloride, Serum 101 mmol/L (Normal) Range: 96-106 Potassium, Serum 4.5 mmol/L (Normal) Range: 3.5-5.2 Sodium, Serum 142 mmol/L (Normal) Range: 134-144 BUN/Creatinine Ratio 19 (Normal) Range: 10-24 eGFR If Africn Am 74 mL/min/1.73 (Normal) eGFR If NonAfricn Am 64 mL/min/1.73 (Normal) Creatinine, Serum 1.07 mg/dL (Normal) Range: 0.76-1.27 BUN 20 mg/dL (Normal) Range: 8-27 Glucose, Serum 94 mg/dL (Normal) Range: 65-99 :40 LIPOPROTEIN, BLD, BY NMR Comments: PATIENT WAS FASTINGPERFORMED BY: BN [facility] Llchyppuda8504 [facility] [id number] BY: CB [facility] Bzwzbr0724 [facility] [id number] (70714) LP-IR Score 64 (Abnormal) Comments: INSULIN RESISTANCE MARKER <--Insulin Sensitive Insulin Resistant--> Percentile in Reference PopulationInsulin Resistance ScoreLP-IR Score Low 25th 50th 75th High <27 27 45 63 >63LP-IR Score is inaccurate if patient is non-fasting. .The LP-IR score is a laboratory developed i [facility] that has beenassociated with insulin resistance and diabetes risk and should beused as one component of a physician's clinical assessment. TheLP-IR score listed above has not been cleared by the US Food andDrug Administration. LDL Size 20.3 nm (Normal) Comments: INTERPRETATIVE INFORMATION PARTICLE CONCENTRATION AND SIZE <--Lower CVD Risk Highe r CVD Risk--> LDL AND HDL PARTICLES Percentile in Reference Population HDL-P (total) High 75th 50th 25th Low >34.9 34.9 30.5 26.7 <26.7 . Small LDL-P Low 25th 50th 75th High <117 117 527 839 >839 . LDL Size <-Large (Pattern A)-> <-Small (Pattern B)-> 23.0 20.6 20.5 19.0 Small LDL-P and LDL Size are associated with CVD risk, but not afterLDL-P is taken into account. .These assays were developed and their performance characteristicsdetermined by [employer]. These assays have not been cleared by [place] Food and Drug Administration. The clinical utility of theselaboratory values have not been fully established. Small LDL-P 830 nmol/L (Abnormal) HDL-P (Total) 30.9 umol/L (Normal) Cholesterol, Total 174 mg/dL (Normal) Range: 100-199 Triglycerides 125 mg/dL (Normal) Range: 0-149 HDL-C 41 mg/dL (Normal) LDL-C 108 mg/dL (Abnormal) Range: 0-99 Comments: . Optimal < 100 Above optimal 100 - 129 Borderline 1 30 - 159 High 160 - 189 Very high > 189 .LDL-C is inaccurate if patient is non-fasting. LDL-P 1328 nmol/L (Abnormal) Comments: Low < 1000 Moderate 1000 - 1299 Borderline-High 1300 - 1599 High 1600 - 2000 Very High > 2000 76-Zpj-17823:40 CBC with auto diff Comments: PATIENT WAS FASTINGPERFORMED BY: BN [facility] [address] [id number] BY: CB [facility] Kthddl2862 [facility] [id number] (07944) Immature Grans (Abs) 0.0 {x10E3/uL} (Normal) Range: 0.0-0.1 Immature Granulocytes 0 % (Normal) Baso (Absolute) 0.0 {x10E3/uL} (Normal) Range: 0.0-0.2 Eos (Absolute) 0.1 {x10E3/uL} (Normal) Range: 0.0-0.4 Monocytes(Absolute) 0.5 {x10E3/uL} (Normal) Range: 0.1-0.9 Lymphs (Absolute) 1.6 {x10E3/uL} (Normal) Range: 0.7-3.1 Neutrophils (Absolute) 2.7 {x10E3/uL} (Normal) Range: 1.4-7.0 Basos 0 % (Normal) Eos 2 % (Normal) Monocytes 10 % (Normal) Lymphs 32 % (Normal) Neutrophils 56 % (Normal) Platelets 176 {x10E3/uL} (Normal) Range: 150-379 RDW 14.3 % (Normal) Range: 12.3-15.4 MCHC 33.2 g/dL (Normal) Range: 31.5-35.7 MCH 29.6 pg (Normal) Range: 26.6-33.0 MCV 89 fL (Normal) Range: 79-97 Hematocrit 40.7 % (Normal) Range: 37.5-51.0 Hemoglobin 13.5 g/dL (Normal) Range: 13.0-17.7 RBC 4.56 {x10E6/uL} (Normal) Range: 4.14-5.80 WBC 4.9 {x10E3/uL} (Normal) Range: 3.4-10.8 :40 CALCIFIDIOL (19314) VIT D Comments: PATIENT WAS FASTINGPERFORMED BY: [employer] [address] [id number] BY: [employer] Ehmxfq1891 [facility] [id number] 25 Vitamin D, 25-Hydroxy 34.5 ng/mL (Normal) Range: 30.0-100.0 Comments: Vitamin D deficiency has been defined by the [place] of[facility] Medical Centercine and an Endocrine Society practice guideline as alevel of serum 25-OH vitamin D less than 20 ng/mL (1,2).The Endocrine Society went on to further define vitamin Dinsufficiency as a level between 21 and 29 ng/mL (2).1. IOM ([place] of Medicine). 2010. Dietary reference intakes for calcium and D. [place]: The National Academies Press.2. Fernando MF, Cedric AGUIAR, Teresa ALBERTS, et al. Evaluation, treatment, and prevention of vitamin D deficiency: an Endocrine Society clinical practice guideline. JCEM. 2010; 96(7):1911-30. :40 serum immunofixation (86911) Comments: PATIENT WAS FASTINGPERFORMED BY: [employer] [id number] BY: Advisor Client MatchSt. Luke's Warren HospitalUwtgii4883 [facility] [id number] Immunoglobulin M, Qn, Serum 107 mg/dL (Normal) Range: 15-143 Immunoglobulin A, Qn, Serum 503 mg/dL (Abnormal) Range: 61-437 Immunoglobulin G, Qn, Serum 1199 mg/dL (Normal) Range: 700-1600 Immunofixation Result, Serum UPEIP (Normal) Comments: No monoclonality detected. :18 Metabolic Panel, Comprehensive Comments: PATIENT WAS FASTINGPERFORMED BY: [facility] [facility] [id number] (50146) ALT (SGPT) 25 [iU]/L (Normal) Range: 0-44 AST (SGOT) 22 [iU]/L (Normal) Range: 0-40 Alkaline Phosphatase, S 48 [iU]/L (Normal) Range: 39-117 Bilirubin, Total 0.5 mg/dL (Normal) Range: 0.0-1.2 A/G Ratio 1.4 (Normal) Range: 1.2-2.2 Globulin, Total 3.0 g/dL (Normal) Range: 1.5-4.5 Albumin, Serum 4.1 g/dL (Normal) Range: 3.5-4.7 Protein, Total, Serum 7.1 g/dL (Normal) Range: 6.0-8.5 Calcium, Serum 9.0 mg/dL (Normal) Range: 8.6-10.2 Carbon Dioxide, Total 25 mmol/L (Normal) Range: 18-29 Chloride, Serum 101 mmol/L (Normal) Range: 96-106 Potassium, Serum 4.0 mmol/L (Normal) Range: 3.5-5.2 Sodium, Serum 143 mmol/L (Normal) Range: 134-144 BUN/Creatinine Ratio 16 (Normal) Range: 10-24 eGFR If Africn Am 66 mL/min/1.73 (Normal) eGFR If NonAfricn Am 57 mL/min/1.73 (Abnormal) Creatinine, Serum 1.19 mg/dL (Normal) Range: 0.76-1.27 BUN 19 mg/dL (Normal) Range: 8-27 Glucose, Serum 95 mg/dL (Normal) Range: 65-99 :18 MICROALBUMIN: CREATININE RATIO Comments: PATIENT WAS FASTINGPERFORMED BY: [facility]70 [facility] [id number] (67266) AND (73971) Microalb/Creat Ratio 5.6 {mg/g_creat} (Normal) Range: 0.0-30.0 Microalbumin, Urine 9.6 ug/mL (Normal) Creatinine, Urine 172.5 mg/dL (Normal) 9-Alex-94193:18 URINALYSIS (22637) Comments: PATIENT WAS FASTINGPERFORMED BY: [employer]6370 [address] [facility] [id number] Microscopic Examination MICNIP (Normal) Comments: Microscopic not indicated and not performed. Nitrite, Urine Negative (Normal) Urobilinogen,Semi-Qn 0.2 mg/dL (Normal) Range: 0.2-1.0 Bilirubin Negative (Normal) Occult Blood Negative (Normal) Ketones Negative (Normal) Glucose Negative (Normal) Protein Negative (Normal) WBC Esterase Negative (Normal) Appearance Clear (Normal) Urine-Color Yellow (Normal) pH 7.0 (Normal) Range: 5.0-7.5 Specific [place] 1.020 (Normal) Range: 1.005-1.030 :18 CBC WITH MANUAL DIFF Comments: PATIENT WAS FASTINGPERFORMED BY: Glisten6370 [address]eg[address] [facility] [id number] Information: NURSE DRAW; fu 6-26 db ([id number]) Immature Grans (Abs) 0.0 {x10E3/uL} (Normal) Range: 0.0-0.1 Immature Granulocytes 0 % (Normal) Baso (Absolute) 0.0 {x10E3/uL} (Normal) Range: 0.0-0.2 Eos (Absolute) 0.1 {x10E3/uL} (Normal) Range: 0.0-0.4 Monocytes(Absolute) 0.4 {x10E3/uL} (Normal) Range: 0.1-0.9 Lymphs (Absolute) 1.5 {x10E3/uL} (Normal) Range: 0.7-3.1 Neutrophils (Absolute) 3.0 {x10E3/uL} (Normal) Range: 1.4-7.0 Basos 0 % (Normal) Eos 2 % (Normal) Monocytes 7 % (Normal) Lymphs 30 % (Normal) Neutrophils 61 % (Normal) Platelets 149 {x10E3/uL} (Abnormal) Range: 150-379 RDW 13.5 % (Normal) Range: 12.3-15.4 MCHC 32.6 g/dL (Normal) Range: 31.5-35.7 MCH 29.7 pg (Normal) Range: 26.6-33.0 MCV 91 fL (Normal) Range: 79-97 Hematocrit 43.9 % (Normal) Range: 37.5-51.0 Hemoglobin 14.3 g/dL (Normal) Range: 12.6-17.7 RBC 4.82 {x10E6/uL} (Normal) Range: 4.14-5.80 WBC 5.0 {x10E3/uL} (Normal) Range: 3.4-10.8 :57 C-REACTIVE PROTEIN (20261) Comments: PATIENT NOT FASTINGPERFORMED BY: [facility] [id number] C-Reactive Protein, Quant 0.7 mg/L (Normal) Range: 0.0-4.9 :57 ESR-F (SED RATE ERYTHROCYTE - Comments: PATIENT NOT FASTINGPERFORMED BY: [facility] [id number] MALE) (84494) Sedimentation Rate-Westergren 5 mm/h (Normal) Range: 0-30 87-Vfh-672174:01 PSA,Total- Diagnostic Comments: [facility] [address]ib[address] [place], [place], [id number] PSA, DIAGNOSTIC 1.09 ng/mL (Normal) Range: 0.0-4.0 Comments: This test was performed using the TPSA assay method for thencyclo chemistry system. Values obtained with differentassay methods cannot be used interchangably.When changing PSA assays in the course of monitoring apatient, additional sequential testing should be carriedout to confirm baseline values. 31-Pbq-965003:29 HgA1C , Office (79093) HgA1C , Office 5.2 % (Normal) Range: 4.6 - 7.1 :03 serum immunofixation (76110) Comments: PATIENT NOT FASTINGPERFORMED BY: [facility] [id number] Information: NURSE DRAW Immunoglobulin M, Qn, Serum 115 mg/dL (Normal) Range: 15-143 Immunoglobulin A, Qn, Serum 504 mg/dL (Abnormal) Range: 61-437 Immunoglobulin G, Qn, Serum 1218 mg/dL (Normal) Range: 700-1600 Immunofixation Result, Serum UPEIP (Normal) Comments: No monoclonality detected. :03 Vitamin B-12 (cyanocobalamin) Comments: PATIENT NOT FASTINGPERFORMED BY: Glisten6370 Veneg[address] RoadDublin [place] [id number] (51639) Vitamin B12 1249 pg/mL (Abnormal) Range: 211-946 :42 Microscopic Examination Comments: PATIENT WAS FASTINGPERFORMED BY: [place]zo[place] [address] [facility] [id number] BY: H2020ox [place] [id number] Bacteria None seen (Normal) Mucus Threads Present (Normal) Epithelial Cells (non renal) None seen {/hpf} (Normal) Range: 0 - 10 RBC 0-2 {/hpf} (Normal) Range: 0 - 2 WBC 0-5 {/hpf} (Normal) Range: 0 - 5 :24 PSA (PROSTATE SPECIFIC Comments: copy to Dr. de luna; PATIENT WAS FASTINGPERFORMED BY: Glisten63[place]bl[place] [id number] ANTIGEN) (V76.44) Prostate Specific Ag, 1.1 ng/mL (Normal) Range: 0.0-4.0 Serum Comments: [email or web address] ECLIA methodology. .According to the [place] [employer], Serum PSA shoulddecrease and remain at undetectable levels after radicalprostatectomy. The AUA defines biochemical recurrence as an initialPSA value 0.2 ng/mL or greater followed by a subsequent confirmatoryPSA value 0.2 ng/mL or greater.Values obtained with d ifferent assay methods or kits cannot be usedinterchangeably. Results cannot be interpreted as absolute evidenceof the presence or absence of malignant disease. :25 MAGNESIUM (27727) Comments: PATIENT WAS FASTINGPERFORMED BY: Glisten6370 Veneg[address] GET Holding NVDublin [place] [id number] Magnesium, Serum 2.3 mg/dL (Normal) Range: 1.6-2.3 61-Cpp-68591:25 Vitamin B-12 (cyanocobalamin) Comments: PATIENT WAS FASTINGPERFORMED BY: ADRIANA [facility] Giafuy0200 Theo [facility]Nov[facility] [id number]; fu 3-24 db (43012) Vitamin B12 1271 pg/mL (Abnormal) Range: 211-946 7-Rpc-644461:06 Prostate-Specific Ag, Serum Comments: PATIENT NOT FASTINGPERFORMED BY: [facility] Lofbwo6950 [facility] HospitalMosheNovant Health/[facility] [id number] Information: [id number], [id number] Prostate Specific Ag, 0.9 ng/mL (Normal) Range: 0.0-4.0 Serum Comments: Material WrldIA methodology. .According to the [place] [employer], Serum PSA shoulddecrease and remain at undetectable levels after radicalprostatectomy. The AUA defines biochemical recurrence as an initialPSA value 0.2 ng/mL or greater followed by a subsequent confirmatoryPSA value 0.2 ng/mL or greater.Values obtained with d ifferent assay methods or kits cannot be usedinterchangeably. Results cannot be interpreted as absolute evidenceof the presence or absence of malignant disease. Written Authorization WAR (Normal) Comments: PATIENT NOT FASTINGPERFORMED BY: NitroSellCo Lhmryp2115 [facility] [id number] 2:06 Comments: Written Authorization Received.Authorization received from ABDIEL DUTTA LPN [id number] by Megan Oneill 7-Zft-076982:06 [facility] ([id number]) Comments: PATIENT NOT FASTINGPERFORMED BY: [facility] Jevoiv0599 [facility] [id number] Information: [id number], [id number]; fu 3-24 Please note: SPRCS (Normal) Comments: Protein electrophoresis scan will follow via computer, mail, orcourier delivery. A/G Ratio 0.9 (Normal) Range: 0.7-1.7 Globulin, Total 3.8 g/dL (Normal) Range: 2.2-3.9 M-Gagandeep Not Observed g/dL (Normal) Gamma Globulin 1.5 g/dL (Normal) Range: 0.4-1.8 Beta Globulin 1.4 g/dL (Abnormal) Range: 0.7-1.3 Dnmwu-0-Expohtdp 0.8 g/dL (Normal) Range: 0.4-1.0 Objxj-2-Gvmdkypb 0.2 g/dL (Normal) Range: 0.0-0.4 Albumin 3.6 g/dL (Normal) Range: 2.9-4.4 Protein, Total, Serum 7.4 g/dL (Normal) Range: 6.0-8.5 14-Phh-657417:26 Amylase Comments: [facility] Bdppnxerct[address] [facility] [address] [place], [place], [address]([phone] RONY 52 U/L (Normal) Range: 25-115 79-Ayo-805085:26 CBC W/Diff, Automated Comments: [facility] Bwhxyezizq9[address] [facility]. [place], [place], [phone]) Absolute Lymph 1.93 {X10_3/ul} (Normal) Range: 0.83-4.51 Absolute Neut 4.3 {X10_3/uL} (Normal) Range: 2.0-7.7 IM GRAN % 0.300 % (Normal) Range: 0.0-0.9 Comments: IG% - Immature Granulocytes (promyelocytes, myelocytes andmetamyelocytes) > 1% indicates that a LEFT SHIFT is Present. BASO% 0.3 % (Normal) Range: 0-1 EO% 2.1 % (Normal) Range: 0-5 MONO% 8.1 % (Normal) Range: 0-10 LY% 27.6 % (Normal) Range: 19-41 NEUT% 61.6 % (Normal) Range: 47-70 MPV 9.8 fL (Normal) Range: 6.2-12.0 PLT 155 K/mm3 (Normal) Range: 150-450 RDW SD 41.7 fL (Normal) Range: 35.1-43.9 RDW CV 13.0 % (Normal) Range: 11.6-14.6 MCHC 33.6 {g/gl} (Normal) Range: 32-36 MCH 29.8 pg (Normal) Range: 27.0-32.0 MCV 88.9 fL (Normal) Range: 80-94 HCT 43.2 % (Normal) Range: 40-54 HGB 14.5 g/dL (Normal) Range: 13.0-16.5 RBC 4.86 {M/mm3} (Normal) Range: 4.6-6.2 WBC 7.0 K/mm3 (Normal) Range: 4.4-11.0 11-Jvm-879458:26 Comprehensive Metabolic Profil Comments: [facility] [address]qg[address] [place], [place], [id number] GAP 7 (Normal) Range: 5-15 CO2 30.0 mmol/L (Normal) Range: 21.0-32.0 CL 103 mmol/L (Normal) Range: 98-107 K 4.0 mmol/L (Normal) Range: 3.5-5.1 NA 140 mmol/L (Normal) Range: 136-145 T BILI 0.50 mg/dL (Normal) Range: 0.20-1.00 ALT 34 U/L (Normal) Range: 12-78 ALK P 62 U/L (Normal) Range: 45-117 AST 24 U/L (Normal) Range: 15-37 CA 8.9 mg/dL (Normal) Range: 8.5-10.1 A/G 0.9 {RATIO} (Normal) Range: 0.9-2.4 GLOB 4.2 g/dL (Abnormal) Range: 2.3-3.5 ALB 3.7 g/dL (Normal) Range: 3.4-5.0 T PROT 7.9 g/dL (Normal) Range: 6.4-8.2 BUN/CRE 17.5 {RATIO} (Normal) Range: 10-20 EST GFR - AA 89 mL/min (Normal) Comments: GFR Calc EST GFR 74 mL/min (Normal) Comments: Non- GFR Calc CREAT,SERUM 1.03 mg/dL (Normal) Range: 0.70-1.30 Comments: The validity of the calculated GFR AND GFRAA in patients over70 years has not been determined. Clinical correlation isessential. BUN 18 mg/dL (Normal) Range: 7-18 GLU 89 mg/dL (Normal) Range: 70-110 31-Paz-485183:26 Culture, Urine Comments: [facility] I[address]flvcgl[address] [place], [place], [id number] CUUR See Note (Normal) Comments: Urine CultureCulture exhibits no growth. 29-Ohe-359452:26 Lipase Comments: [facility] [address] [place], [id number] LIPASE 205 U/L (Normal) Range: 73-393 93-Hnk-034364:56 URINE AMADA CULTURE-IDENTIFICATN Comments: PATIENT NOT FASTINGPERFORMED BY: LabCo[address] [id number] Information: SRC:UC (33170) Result 1 NG36 (Normal) Comments: No growth in 36 - 48 hours. Urine Culture,Comprehensive Final report (Normal) 97-Dld-717665:22 Urinalysis, Office (44248) UA - LEUKOCYTE ESTERASE Negative (Normal) UA - NITRITE Negative (Normal) URINE UROBILINGN RENÉE TIMED Normal mg/dL (Normal) UA - PROTEIN Negative mg/dL (Normal) UA - PH 6 (Abnormal) UA - BLOOD Negative (Normal) UA - SPECIFIC GRAVITY 1.005 (Normal) UA - KETONES Negative mg/dL (Normal) UA - BILIRUBIN Negative (Normal) UA - GLUCOSE Negative (Normal) 58-Vdb-25858:42 CALCIFIDIOL (14954) VIT D Comments: PATIENT WAS FASTINGPERFORMED BY: NitroSellDominique V[place] [address]77 [facility] [id number] BY: LabCoSt. Luke's Warren HospitalYxjxzo6798 [facility] [id number] Vitamin D, 25-Hydroxy 30.1 ng/mL (Normal) Range: 30.0-100.0 Comments: Vitamin D deficiency has been defined by the [place] of[place] and an Endocrine Society practice guideline as alevel of serum 25-OH vitamin D less than 20 ng/mL (1,2).The Endocrine Society went on to further define vitamin Dinsufficiency as a level between 21 and 29 ng/mL (2).1. IOM ([place] [employer]). 2010. Dietary reference intakes for calcium and D. [place]: The National Academies Press.2. Fernando MF, Cedric NC, Teresa ALBERTS, et al. Evaluation, treatment, and prevention of vitamin D deficiency: an Endocrine Society clinical practice guideline. JCEM. 2010; 96(7):1911-30. :42 URINALYSIS, W/ MICRO Comments: PATIENT WAS FASTINGPERFORMED BY: NitroSell[address] [id number] BY: [place] 6472970 [facility] [id number] (66486) Microscopic Examination See below: (Normal) Comments: Microscopic was indicated and was performed. Microscopic Examination MICRON (Normal) Comments: Microscopic follows if indicated. Nitrite, Urine Negative (Normal) Urobilinogen,Semi-Qn 0.2 mg/dL (Normal) Range: 0.2-1.0 Bilirubin Negative (Normal) Occult Blood Negative (Normal) Ketones Negative (Normal) Glucose Negative (Normal) Protein Negative (Normal) WBC Esterase Negative (Normal) Appearance Clear (Normal) Urine-Color Yellow (Normal) pH 6.0 (Normal) Range: 5.0-7.5 Specific [place] 1.021 (Normal) Range: 1.005-1.030 :42 METABOLIC PANEL, Comments: PATIENT WAS FASTINGPERFORMED BY: Sanlorenzo[address] [id number] BY: SanlorenzoShawn V[place] 3511570 [facility] [id number] COMPREHENSIVE (34197) ALT (SGPT) 22 [iU]/L (Normal) Range: 0-44 AST (SGOT) 23 [iU]/L (Normal) Range: 0-40 Alkaline Phosphatase, S 63 [iU]/L (Normal) Range: 39-117 Bilirubin, Total 0.5 mg/dL (Normal) Range: 0.0-1.2 A/G Ratio 1.2 (Normal) Range: 1.2-2.2 Comments: Please note reference interval change Globulin, Total 3.3 g/dL (Normal) Range: 1.5-4.5 Albumin, Serum 4.0 g/dL (Normal) Range: 3.5-4.7 Protein, Total, Serum 7.3 g/dL (Normal) Range: 6.0-8.5 Calcium, Serum 9.5 mg/dL (Normal) Range: 8.6-10.2 Carbon Dioxide, Total 26 mmol/L (Normal) Range: 18-29 Chloride, Serum 103 mmol/L (Normal) Range: 96-106 Potassium, Serum 4.4 mmol/L (Normal) Range: 3.5-5.2 Sodium, Serum 145 mmol/L (Abnormal) Range: 134-144 BUN/Creatinine Ratio 18 (Normal) Range: 10-22 eGFR If Africn Am 71 mL/min/1.73 (Normal) eGFR If NonAfricn Am 61 mL/min/1.73 (Normal) Creatinine, Serum 1.12 mg/dL (Normal) Range: 0.76-1.27 BUN 20 mg/dL (Normal) Range: 8-27 Glucose, Serum 96 mg/dL (Normal) Range: 65-99 21-Hvv-62735:42 LIPOPROTEIN, BLD, BY NMR Comments: PATIENT WAS FASTINGPERFORMED BY: BN [facility] Ivntpyttfl1049 [facility] [id number] BY: CB [facility] Oyagnp4649 [facility] [id number] (73744) LP-IR Score 46 (Abnormal) Comments: INSULIN RESISTANCE MARKER <--Insulin Sensitive Insulin Resistant--> Percentile in Reference PopulationInsulin Resistance ScoreLP-IR Score Low 25th 50th 75th High <27 27 45 63 >63LP-IR Score is inaccurate if patient is non-fasting. .The LP-IR score is a laboratory developed i [facility] that has beenassociated with insulin resistance and diabetes risk and should beused as one component of a physician's clinical assessment. TheLP-IR score listed above has not been cleared by the [place] Food andDrug Administration. LDL Size 20.1 nm (Normal) Comments: INTERPRETATIVE INFORMATION PARTICLE CONCENTRATION AND SIZE <--Lower CVD Risk Highe r CVD Risk--> LDL AND HDL PARTICLES Percentile in Reference Population HDL-P (total) High 75th 50th 25th Low >34.9 34.9 30.5 26.7 <26.7 . Small LDL-P Low 25th 50th 75th High <117 117 527 839 >839 . LDL Size <-Large (Pattern A)-> <-Small (Pattern B)-> 23.0 20.6 20.5 19.0 Small LDL-P and LDL Size are associated with CVD risk, but not afterLDL-P is taken into account. .These assays were developed and their performance characteristicsdetermined by [facility]. These assays have not been cleared by [place] Food and Drug Administration. The clinical utility of theselaboratory values have not been fully established. Small LDL-P 867 nmol/L (Abnormal) HDL-P (Total) 28.8 umol/L (Abnormal) Cholesterol, Total 146 mg/dL (Normal) Range: 100-199 Triglycerides 119 mg/dL (Normal) Range: 0-149 HDL-C 34 mg/dL (Abnormal) LDL-C 88 mg/dL (Normal) Range: 0-99 Comments: . Optimal < 100 Above optimal 100 - 129 Borderline 1 30 - 159 High 160 - 189 Very high > 189 .LDL-C is inaccurate if patient is non-fasting. LDL-P 1231 nmol/L (Abnormal) Comments: Low < 1000 Moderate 1000 - 1299 Borderline-High 1300 - 1599 High 1600 - 2000 Very High > 2000 40-Mjg-23765:42 CBC with auto diff Comments: PATIENT WAS FASTINGPERFORMED BY: BN [facility] [address] [id number] BY: CB [facility] Mbcxho4218 [facility] [id number]; fu 3-24 (38377) Immature Grans (Abs) 0.0 {x10E3/uL} (Normal) Range: 0.0-0.1 Immature Granulocytes 0 % (Normal) Baso (Absolute) 0.0 {x10E3/uL} (Normal) Range: 0.0-0.2 Eos (Absolute) 0.1 {x10E3/uL} (Normal) Range: 0.0-0.4 Monocytes(Absolute) 0.5 {x10E3/uL} (Normal) Range: 0.1-0.9 Lymphs (Absolute) 1.4 {x10E3/uL} (Normal) Range: 0.7-3.1 Neutrophils (Absolute) 4.0 {x10E3/uL} (Normal) Range: 1.4-7.0 Basos 0 % (Normal) Eos 2 % (Normal) Monocytes 8 % (Normal) Lymphs 24 % (Normal) Neutrophils 66 % (Normal) Platelets 159 {x10E3/uL} (Normal) Range: 150-379 RDW 13.2 % (Normal) Range: 12.3-15.4 MCHC 34.2 g/dL (Normal) Range: 31.5-35.7 MCH 30.1 pg (Normal) Range: 26.6-33.0 MCV 88 fL (Normal) Range: 79-97 Hematocrit 41.5 % (Normal) Range: 37.5-51.0 Hemoglobin 14.2 g/dL (Normal) Range: 12.6-17.7 RBC 4.71 {x10E6/uL} (Normal) Range: 4.14-5.80 WBC 6.0 {x10E3/uL} (Normal) Range: 3.4-10.8 :59 HgA1C , Office (38849) HgA1C , Office 5.4 % (Normal) Range: 4.6 - 7.1 :55 Metabolic Panel, Basic Comments: now before CT; PATIENT NOT FASTINGPERFORMED BY: LabJohn [facility]. [facility]6370 [facility] [id number] Information: [id number], [id number] (13011) Calcium, Serum 9.4 mg/dL (Normal) Range: 8.6-10.2 Carbon Dioxide, Total 21 mmol/L (Normal) Range: 18-29 Chloride, Serum 101 mmol/L (Normal) Range: 97-108 Potassium, Serum 4.7 mmol/L (Normal) Range: 3.5-5.2 Sodium, Serum 144 mmol/L (Normal) Range: 134-144 BUN/Creatinine Ratio 19 (Normal) Range: 10-22 eGFR If Africn Am 84 mL/min/1.73 (Normal) eGFR If NonAfricn Am 73 mL/min/1.73 (Normal) Creatinine, Serum 0.98 mg/dL (Normal) Range: 0.76-1.27 BUN 19 mg/dL (Normal) Range: 8-27 Glucose, Serum 98 mg/dL (Normal) Range: 65-99 :42 LIPOPROTEIN, BLD, BY NMR Comments: PATIENT WAS FASTINGPERFORMED BY: BN [facility] Gafctgnggt6873 [facility] [id number] BY: CB [facility] Hgrngc6905 [facility] [id number] Information: [id number], [id number]; fu 9-26 DB (56519) LP-IR Score 44 (Normal) Comments: INSULIN RESISTANCE MARKER <--Insulin Sensitive Insulin Resistant--> Percentile in Reference PopulationInsulin Resistance ScoreLP-IR Score Low 25th 50th 75th High <27 27 45 63 >63LP-IR Score is inaccurate if patient is non-fasting. .The LP-IR score is a laboratory developed i [facility] that has beenassociated with insulin resistance and diabetes risk and should beused as one component of a physician's clinical assessment. TheLP-IR score listed above has not been cleared by the [place] Food andDrug Administration. LDL Size 19.8 nm (Normal) Comments: INTERPRETATIVE INFORMATION PARTICLE CONCENTRATION AND SIZE <--Lower CVD Risk Highe r CVD Risk--> LDL AND HDL PARTICLES Percentile in Reference Population HDL-P (total) High 75th 50th 25th Low >34.9 34.9 30.5 26.7 <26.7 . Small LDL-P Low 25th 50th 75th High <117 117 527 839 >839 . LDL Size <-Large (Pattern A)-> <-Small (Pattern B)-> 23.0 20.6 20.5 19.0 Small LDL-P and LDL Size are associated with CVD risk, but not afterLDL-P is taken into account. .These assays were developed and their performance characteristicsdetermined by [email or web address]. These assays have not been cleared by [place] Food and Drug Administration. The clinical utility of theselaboratory values have not been fully established. Small LDL-P 964 nmol/L (Abnormal) HDL-P (Total) 26.8 umol/L (Abnormal) Cholesterol, Total 151 mg/dL (Normal) Range: 100-199 Triglycerides 118 mg/dL (Normal) Range: 0-149 HDL-C 34 mg/dL (Abnormal) LDL-C 93 mg/dL (Normal) Range: 0-99 Comments: . Optimal < 100 Above optimal 100 - 129 Borderline 1 30 - 159 High 160 - 189 Very high > 189 .LDL-C is inaccurate if patient is non-fasting. LDL-P 1347 nmol/L (Abnormal) Comments: Low < 1000 Moderate 1000 - 1299 Borderline-High 1300 - 1599 High 1600 - 2000 Very High > 2000 32-Fno-60039:42 METABOLIC PANEL, Comments: PATIENT WAS FASTINGPERFORMED BY: [facility] [address] [id number] BY: [facility] Rngiex6603 [facility] [id number] COMPREHENSIVE (66492) ALT (SGPT) 18 [iU]/L (Normal) Range: 0-44 AST (SGOT) 21 [iU]/L (Normal) Range: 0-40 Alkaline Phosphatase, S 56 [iU]/L (Normal) Range: 39-117 Bilirubin, Total 0.6 mg/dL (Normal) Range: 0.0-1.2 A/G Ratio 1.4 (Normal) Range: 1.1-2.5 Globulin, Total 2.9 g/dL (Normal) Range: 1.5-4.5 Albumin, Serum 4.2 g/dL (Normal) Range: 3.5-4.7 Protein, Total, Serum 7.1 g/dL (Normal) Range: 6.0-8.5 Calcium, Serum 9.3 mg/dL (Normal) Range: 8.6-10.2 Carbon Dioxide, Total 27 mmol/L (Normal) Range: 18-29 Chloride, Serum 102 mmol/L (Normal) Range: 97-108 Potassium, Serum 4.7 mmol/L (Normal) Range: 3.5-5.2 Sodium, Serum 144 mmol/L (Normal) Range: 134-144 BUN/Creatinine Ratio 17 (Normal) Range: 10-22 eGFR If Africn Am 74 mL/min/1.73 (Normal) eGFR If NonAfricn Am 64 mL/min/1.73 (Normal) Creatinine, Serum 1.09 mg/dL (Normal) Range: 0.76-1.27 BUN 19 mg/dL (Normal) Range: 8-27 Glucose, Serum 92 mg/dL (Normal) Range: 65-99 33-Nat-13417:42 CBC with auto diff Comments: PATIENT WAS FASTINGPERFORMED BY: BN [facility] [address] [id number] BY: CB [facility] Eqxvuv8872 [facility] [id number] (50539) Immature Grans (Abs) 0.0 {x10E3/uL} (Normal) Range: 0.0-0.1 Immature Granulocytes 0 % (Normal) Baso (Absolute) 0.0 {x10E3/uL} (Normal) Range: 0.0-0.2 Eos (Absolute) 0.1 {x10E3/uL} (Normal) Range: 0.0-0.4 Monocytes(Absolute) 0.4 {x10E3/uL} (Normal) Range: 0.1-0.9 Lymphs (Absolute) 1.4 {x10E3/uL} (Normal) Range: 0.7-3.1 Neutrophils (Absolute) 2.5 {x10E3/uL} (Normal) Range: 1.4-7.0 Basos 0 % (Normal) Eos 3 % (Normal) Monocytes 9 % (Normal) Lymphs 32 % (Normal) Neutrophils 56 % (Normal) Platelets 146 {x10E3/uL} (Abnormal) Range: 150-379 RDW 13.6 % (Normal) Range: 12.3-15.4 MCHC 33.2 g/dL (Normal) Range: 31.5-35.7 MCH 29.5 pg (Normal) Range: 26.6-33.0 MCV 89 fL (Normal) Range: 79-97 Hematocrit 41.6 % (Normal) Range: 37.5-51.0 Hemoglobin 13.8 g/dL (Normal) Range: 12.6-17.7 RBC 4.68 {x10E6/uL} (Normal) Range: 4.14-5.80 WBC 4.5 {x10E3/uL} (Normal) Range: 3.4-10.8 :48 Microscopic Examination Comments: PATIENT NOT FASTINGPERFORMED BY: Glisten6370 [place]IAin [place] [id number] Bacteria None seen (Normal) Mucus Threads Present (Normal) Epithelial Cells (non renal) None seen {/hpf} (Normal) Range: 0 - 10 RBC 0-2 {/hpf} (Normal) Range: 0 - 2 WBC 0-5 {/hpf} (Normal) Range: 0 - 5 :48 PSA (PROSTATE SPECIFIC Comments: PATIENT NOT FASTINGPERFORMED BY: Glisten6370 [employer]9 SystemsNovant Health/[facility] [id number] ANTIGEN) (V76.44) Prostate Specific Ag, 0.9 ng/mL (Normal) Range: 0.0-4.0 Serum Comments: Teresa ECLIA methodology. .According to the [place] [employer], Serum PSA shoulddecrease and remain at undetectable levels after radicalprostatectomy. The AUA defines biochemical recurrence as an initialPSA value 0.2 ng/mL or greater followed by a subsequent confirmatoryPSA value 0.2 ng/mL or greater.Values obtained with d ifferent assay methods or kits cannot be usedinterchangeably. Results cannot be interpreted as absolute evidenceof the presence or absence of malignant disease. :48 CALCIFIDIOL (80693) VIT D 25 Comments: PATIENT NOT FASTINGPERFORMED BY: Glisten6370 NivelaHugh Chatham Memorial Hospitalin [place] [id number] Vitamin D, 25-Hydroxy 31.1 ng/mL (Normal) Range: 30.0-100.0 Comments: Vitamin D deficiency has been defined by the [place] of[place]icine and an Endocrine Society practice guideline as alevel of serum 25-OH vitamin D less than 20 ng/mL (1,2).The Endocrine Society went on to further define vitamin Dinsufficiency as a level between 21 and 29 ng/mL (2).1. IOM ([place] [employer]). 2010. Dietary reference intakes for calcium and D. [place]: The National Academies Press.2. Fernando MF, Cedric AGUIAR, Teresa ALBERTS, et al. Evaluation, treatment, and prevention of vitamin D deficiency: an Endocrine Society clinical practice guideline. JCEM. 2010; 96(7):1911-30. :48 URINALYSIS, W/ MICRO (85224) Comments: PATIENT NOT FASTINGPERFORMED BY: [facility]70 [facility] [id number] Microscopic Examination See below: (Normal) Comments: Microscopic was indicated and was performed. Microscopic Examination MICRON (Normal) Comments: Microscopic follows if indicated. Nitrite, Urine Negative (Normal) Urobilinogen,Semi-Qn 0.2 mg/dL (Normal) Range: 0.2-1.0 Bilirubin Negative (Normal) Occult Blood Negative (Normal) Ketones Negative (Normal) Glucose Negative (Normal) Protein Trace (Normal) WBC Esterase Negative (Normal) Appearance Clear (Normal) Urine-Color Yellow (Normal) pH 7.0 (Normal) Range: 5.0-7.5 Specific [place] 1.025 (Normal) Range: 1.005-1.030 :48 METABOLIC PANEL, COMPREHENSIVE Comments: PATIENT NOT FASTINGPERFORMED BY: Glisten6370 Venegascooala - your brandsF[facility] [id number] ([id number]) ALT (SGPT) 18 [iU]/L (Normal) Range: 0-44 AST (SGOT) 18 [iU]/L (Normal) Range: 0-40 Alkaline Phosphatase, S 58 [iU]/L (Normal) Range: 39-117 Bilirubin, Total 0.6 mg/dL (Normal) Range: 0.0-1.2 A/G Ratio 1.4 (Normal) Range: 1.1-2.5 Globulin, Total 3.0 g/dL (Normal) Range: 1.5-4.5 Albumin, Serum 4.1 g/dL (Normal) Range: 3.5-4.7 Protein, Total, Serum 7.1 g/dL (Normal) Range: 6.0-8.5 Calcium, Serum 9.1 mg/dL (Normal) Range: 8.6-10.2 Carbon Dioxide, Total 26 mmol/L (Normal) Range: 18-29 Chloride, Serum 102 mmol/L (Normal) Range: 97-108 Potassium, Serum 4.2 mmol/L (Normal) Range: 3.5-5.2 Sodium, Serum 143 mmol/L (Normal) Range: 134-144 BUN/Creatinine Ratio 16 (Normal) Range: 10-22 eGFR If Africn Am 74 mL/min/1.73 (Normal) eGFR If NonAfricn Am 64 mL/min/1.73 (Normal) Creatinine, Serum 1.09 mg/dL (Normal) Range: 0.76-1.27 BUN 17 mg/dL (Normal) Range: 8-27 Glucose, Serum 93 mg/dL (Normal) Range: 65-99 :48 LIPID PANEL (21273) Comments: PATIENT NOT FASTINGPERFORMED BY: [facility]GotStuff [facility] [facility] [id number] LDL/HDL Ratio 2.1 {ratio_units} (Normal) Range: 0.0-3.6 Comments: LDL/HDL Ratio Men Women 1/2 Avg.Risk 1.0 1.5 Av g.Risk 3.6 3.2 2X Avg.Risk 6.2 5.0 3X Avg.Risk 8.0 6.1 LDL Cholesterol Calc 73 mg/dL (Normal) Range: 0-99 VLDL Cholesterol Kylie 24 mg/dL (Normal) Range: 5-40 HDL Cholesterol 34 mg/dL (Abnormal) Comments: According to ATP-III Guidelines, HDL-C >59 mg/dL is considered anegative risk factor for CHD. Triglycerides 122 mg/dL (Normal) Range: 0-149 Cholesterol, Total 131 mg/dL (Normal) Range: 100-199 :48 CBC with auto diff (81062) Comments: PATIENT NOT FASTINGPERFORMED BY: [facility]Got[facility] Szurys0604 [facility] [id number]; apt. 2-26-16 Immature Grans (Abs) 0.0 {x10E3/uL} (Normal) Range: 0.0-0.1 Immature Granulocytes 0 % (Normal) Baso (Absolute) 0.0 {x10E3/uL} (Normal) Range: 0.0-0.2 Eos (Absolute) 0.1 {x10E3/uL} (Normal) Range: 0.0-0.4 Monocytes(Absolute) 0.4 {x10E3/uL} (Normal) Range: 0.1-0.9 Lymphs (Absolute) 1.4 {x10E3/uL} (Normal) Range: 0.7-3.1 Neutrophils (Absolute) 2.8 {x10E3/uL} (Normal) Range: 1.4-7.0 Basos 0 % (Normal) Eos 2 % (Normal) Monocytes 8 % (Normal) Lymphs 30 % (Normal) Neutrophils 60 % (Normal) Platelets 181 {x10E3/uL} (Normal) Range: 150-379 RDW 13.7 % (Normal) Range: 12.3-15.4 MCHC 32.9 g/dL (Normal) Range: 31.5-35.7 MCH 29.2 pg (Normal) Range: 26.6-33.0 MCV 89 fL (Normal) Range: 79-97 Hematocrit 41.0 % (Normal) Range: 37.5-51.0 Hemoglobin 13.5 g/dL (Normal) Range: 12.6-17.7 RBC 4.62 {x10E6/uL} (Normal) Range: 4.14-5.80 WBC 4.6 {x10E3/uL} (Normal) Range: 3.4-10.8 03-Jan-20158:20 LIPID PANEL (71987) Comments: PATIENT WAS FASTINGPERFORMED BY: [facility]CoSt[facility] HospitalVeuxhj7213 [facility] [id number] Information: [id number]; non-emergent till apt LDL/HDL Ratio 2.3 {ratio_units} (Normal) Range: 0.0-3.6 Comments: LDL/HDL Ratio Men Women 1/2 Avg.Risk 1.0 1.5 Av g.Risk 3.6 3.2 2X Avg.Risk 6.2 5.0 3X Avg.Risk 8.0 6.1 LDL Cholesterol Calc 74 mg/dL (Normal) Range: 0-99 VLDL Cholesterol Kylie 23 mg/dL (Normal) Range: 5-40 HDL Cholesterol 32 mg/dL (Abnormal) Comments: According to ATP-III Guidelines, HDL-C >59 mg/dL is considered anegative risk factor for CHD. Triglycerides 117 mg/dL (Normal) Range: 0-149 Cholesterol, Total 129 mg/dL (Normal) Range: 100-199 03-Akc-906903:02 CBC-Complete Blood Cnt No Diff Comments: Test performed at:[facility] [address] [place] [address] MPV 9.7 fL (Normal) Range: 6.2-12.0 PLT 133 K/mm3 (Abnormal) Range: 150-450 RDW SD 41.9 fL (Normal) Range: 35.1-43.9 RDW CV 12.9 % (Normal) Range: 11.6-14.6 MCHC 33.3 {g/gl} (Normal) Range: 32-36 MCH 29.8 pg (Normal) Range: 27.0-32.0 MCV 89.5 fL (Normal) Range: 80-94 HCT 41.1 % (Normal) Range: 40-54 HGB 13.7 g/dL (Normal) Range: 13.0-16.5 RBC 4.59 {M/mm3} (Abnormal) Range: 4.6-6.2 WBC 5.7 K/mm3 (Normal) Range: 4.4-11.0 39-Qbc-256498:02 Comprehensive Metabolic Profil Comments: Test performed at:[facility] [address] [place], [place] [address] GAP 4 (Abnormal) Range: 5-15 CO2 30.0 mmol/L (Normal) Range: 21.0-32.0 CL 105 mmol/L (Normal) Range: 98-107 K 3.9 mmol/L (Normal) Range: 3.5-5.1 NA 139 mmol/L (Normal) Range: 136-145 T BILI 0.40 mg/dL (Normal) Range: 0.20-1.00 ALT 31 U/L (Normal) Range: 12-78 ALK P 62 U/L (Normal) Range: 50-136 AST 18 U/L (Normal) Range: 15-37 CA 8.8 mg/dL (Normal) Range: 8.5-10.1 A/G 1.0 {RATIO} (Normal) Range: 0.9-2.4 GLOB 3.6 g/dL (Abnormal) Range: 2.3-3.5 ALB 3.7 g/dL (Normal) Range: 3.4-5.0 T PROT 7.3 g/dL (Normal) Range: 6.4-8.2 BUN/CRE 15.2 {RATIO} (Normal) Range: 10-20 CREAT,SERUM 1.05 mg/dL (Normal) Range: 0.70-1.30 Comments: Please note revised CREATININE reference range blmqevlfl10/22/2015. BUN 16 mg/dL (Normal) Range: 7-18 GLU 100 mg/dL (Normal) Range: 70-110 12-Vjj-976154:02 Erythrocyte Sed Rate Comments: Test performed at:[facility] [address] [place], [place] [id number] SED RATE 9 mm/h (Normal) Range: 0-20 92-Gxs-64563:50 Urinalysis, Office (62085) UA - LEUKOCYTE ESTERASE Negative (Normal) UA - NITRITE Negative (Normal) URINE UROBILINGN RENÉE TIMED 2 mg/dL (Normal) UA - PROTEIN Negative mg/dL (Normal) UA - PH 5.0 (Normal) UA - BLOOD Negative (Normal) UA - SPECIFIC GRAVITY 1.015 (Normal) UA - KETONES Negative mg/dL (Normal) UA - BILIRUBIN Negative (Normal) UA - GLUCOSE Negative (Normal) 61-Swi-896702:04 HgA1C , Office (98932) HgA1C , Office 5.6 % (Normal) Range: 4.6 - 7.1 :04 Blood Glucose , Office (08399) Blood Glucose , Office 124 (Normal) :35 Microscopic Examination Comments: PATIENT WAS FASTINGPERFORMED BY: [facility] Agxazh4446 [facility] [id number] Bacteria None seen (Normal) Mucus Threads Present (Normal) Epithelial Cells (non renal) None seen {/hpf} (Normal) Range: 0 - 10 RBC 0-2 {/hpf} (Normal) Range: 0 - 2 WBC 0-5 {/hpf} (Normal) Range: 0 - 5 :35 CALCIFIDIOL (82947) VIT D 25 Comments: PATIENT WAS FASTINGPERFORMED BY: Sanlorenzo Zeqxhp3286 [facility] [id number] Vitamin D, 25-Hydroxy 29.1 ng/mL (Abnormal) Range: 30.0-100.0 Comments: Vitamin D deficiency has been defined by the [place] of[place]icine and an Endocrine Society practice guideline as alevel of serum 25-OH vitamin D less than 20 ng/mL (1,2).The Endocrine Society went on to further define vitamin Dinsufficiency as a level between 21 and 29 ng/mL (2).1. IOM ([place] of [employer]). 2010. Dietary reference intakes for calcium and D. [place]: The National Academies Press.2. Fernando MF, Cedric AGUIAR, Teresa ALBERTS, et al. Evaluation, treatment, and prevention of vitamin D deficiency: an Endocrine Society clinical practice guideline. JCEM. 2010; 96(7):1911-30. :35 URINALYSIS, W/ MICRO (68440) Comments: PATIENT WAS FASTINGPERFORMED BY: Burstly6370 [facility] [id number] Microscopic Examination See below: (Normal) Comments: Microscopic was indicated and was performed. Microscopic Examination MICRON (Normal) Comments: Microscopic follows if indicated. Nitrite, Urine Negative (Normal) Urobilinogen,Semi-Qn 0.2 mg/dL (Normal) Range: 0.0-1.9 Bilirubin Negative (Normal) Occult Blood Negative (Normal) Ketones Negative (Normal) Glucose Negative (Normal) Protein Negative (Normal) WBC Esterase Negative (Normal) Appearance Clear (Normal) Urine-Color Yellow (Normal) pH 7.5 (Normal) Range: 5.0-7.5 Specific [place] 1.023 (Normal) Range: 1.005-1.030 :35 METABOLIC PANEL, COMPREHENSIVE Comments: PATIENT WAS FASTINGPERFORMED BY: Sanlorenzo Vhfkqw5779 [facility] [id number] (84968) ALT (SGPT) 22 [iU]/L (Normal) Range: 0-44 AST (SGOT) 22 [iU]/L (Normal) Range: 0-40 Alkaline Phosphatase, S 63 [iU]/L (Normal) Range: 39-117 Bilirubin, Total 0.5 mg/dL (Normal) Range: 0.0-1.2 A/G Ratio 1.4 (Normal) Range: 1.1-2.5 Globulin, Total 3.0 g/dL (Normal) Range: 1.5-4.5 Albumin, Serum 4.1 g/dL (Normal) Range: 3.5-4.8 Protein, Total, Serum 7.1 g/dL (Normal) Range: 6.0-8.5 Calcium, Serum 9.1 mg/dL (Normal) Range: 8.6-10.2 Carbon Dioxide, Total 27 mmol/L (Normal) Range: 18-29 Chloride, Serum 101 mmol/L (Normal) Range: 97-108 Potassium, Serum 4.2 mmol/L (Normal) Range: 3.5-5.2 Sodium, Serum 141 mmol/L (Normal) Range: 134-144 BUN/Creatinine Ratio 17 (Normal) Range: 10-22 eGFR If Africn Am 79 mL/min/1.73 (Normal) eGFR If NonAfricn Am 69 mL/min/1.73 (Normal) Creatinine, Serum 1.03 mg/dL (Normal) Range: 0.76-1.27 BUN 18 mg/dL (Normal) Range: 8-27 Glucose, Serum 93 mg/dL (Normal) Range: 65-99 27-Jun-20149:35 LIPID PANEL (88613) Comments: PATIENT WAS FASTINGPERFORMED BY: [facility] [id number] LDL/HDL Ratio 2.5 {ratio_units} (Normal) Range: 0.0-3.6 Comments: LDL/HDL Ratio Men Women 1/2 Avg.Risk 1.0 1.5 Av g.Risk 3.6 3.2 2X Avg.Risk 6.2 5.0 3X Avg.Risk 8.0 6.1 LDL Cholesterol Calc 84 mg/dL (Normal) Range: 0-99 VLDL Cholesterol Kylie 25 mg/dL (Normal) Range: 5-40 HDL Cholesterol 34 mg/dL (Abnormal) Comments: According to ATP-III Guidelines, HDL-C >59 mg/dL is considered anegative risk factor for CHD. Triglycerides 127 mg/dL (Normal) Range: 0-149 Cholesterol, Total 143 mg/dL (Normal) Range: 100-199 :35 CBC W/AUTO DIFF WBC Comments: PATIENT WAS FASTINGPERFORMED BY: [facility]CoSt. [facility] HospitalHizzok9611 [facility] [id number] Information: [id number] (09748) Immature Grans (Abs) 0.0 {x10E3/uL} (Normal) Range: 0.0-0.1 Immature Granulocytes 0 % (Normal) Baso (Absolute) 0.0 {x10E3/uL} (Normal) Range: 0.0-0.2 Eos (Absolute) 0.1 {x10E3/uL} (Normal) Range: 0.0-0.4 Monocytes(Absolute) 0.4 {x10E3/uL} (Normal) Range: 0.1-0.9 Lymphs (Absolute) 1.8 {x10E3/uL} (Normal) Range: 0.7-3.1 Neutrophils (Absolute) 3.0 {x10E3/uL} (Normal) Range: 1.4-7.0 Basos 0 % (Normal) Eos 2 % (Normal) Monocytes 7 % (Normal) Lymphs 33 % (Normal) Neutrophils 58 % (Normal) Platelets 164 {x10E3/uL} (Normal) Range: 150-379 RDW 13.9 % (Normal) Range: 12.3-15.4 MCHC 33.9 g/dL (Normal) Range: 31.5-35.7 MCH 29.8 pg (Normal) Range: 26.6-33.0 MCV 88 fL (Normal) Range: 79-97 Hematocrit 41.0 % (Normal) Range: 37.5-51.0 Hemoglobin 13.9 g/dL (Normal) Range: 12.6-17.7 RBC 4.67 {x10E6/uL} (Normal) Range: 4.14-5.80 WBC 5.3 {x10E3/uL} (Normal) Range: 3.4-10.8 :58 HgA1C , Office (68239) HgA1C , Office 5.5 % (Normal) Range: 4.6 - 7.1 :58 Blood Glucose , Office (34798) Blood Glucose , Office 107 (Normal) :33 PSA (PROSTATE SPECIFIC Comments: PATIENT WAS FASTINGPERFORMED BY: Glisten6370 [facility] [facility] [place] [id number] ANTIGEN) (V76.44) Prostate Specific Ag, 0.8 ng/mL (Normal) Range: 0.0-4.0 Serum Comments: Material WrldIA methodology. .According to the [place] [employer], Serum PSA shoulddecrease and remain at undetectable levels after radicalprostatectomy. The AUA defines biochemical recurrence as an initialPSA value 0.2 ng/mL or greater followed by a subsequent confirmatoryPSA value 0.2 ng/mL or greater.Values obtained with d ifferent assay methods or kits cannot be usedinterchangeably. Results cannot be interpreted as absolute evidenceof the presence or absence of malignant disease. :33 CALCIFIDIOL (60937) VIT D 25 Comments: PATIENT WAS FASTINGPERFORMED BY: [employer] Yjpvuw6813 [facility] [facility] [place] [id number] Vitamin D, 25-Hydroxy 33.6 ng/mL (Normal) Range: 30.0-100.0 Comments: Vitamin D deficiency has been defined by the [place] [employer] and an Endocrine Society practice guideline as alevel of serum 25-OH vitamin D less than 20 ng/mL (1,2).The Endocrine Society went on to further define vitamin Dinsufficiency as a level between 21 and 29 ng/mL (2).1. IOM ([place] [employer]). 2010. Dietary reference intakes for calcium and D. [place]: The National Academies Press.2. Fernando MF, Cedric NC, Teresa ALBERTS, et al. Evaluation, treatment, and prevention of vitamin D deficiency: an Endocrine Society clinical practice guideline. JCEM. 2010; 96(7):1911-30. :33 METABOLIC PANEL, COMPREHENSIVE Comments: PATIENT WAS FASTINGPERFORMED BY: [employer] Pcryzf0911 Venegas [facility] [place] [id number] (89466) ALT (SGPT) 32 [iU]/L (Normal) Range: 0-44 AST (SGOT) 25 [iU]/L (Normal) Range: 0-40 Alkaline Phosphatase, S 67 [iU]/L (Normal) Range: 39-117 Bilirubin, Total 0.4 mg/dL (Normal) Range: 0.0-1.2 A/G Ratio 1.4 (Normal) Range: 1.1-2.5 Globulin, Total 2.9 g/dL (Normal) Range: 1.5-4.5 Albumin, Serum 4.1 g/dL (Normal) Range: 3.5-4.8 Protein, Total, Serum 7.0 g/dL (Normal) Range: 6.0-8.5 Calcium, Serum 9.4 mg/dL (Normal) Range: 8.6-10.2 Carbon Dioxide, Total 26 mmol/L (Normal) Range: 18-29 Chloride, Serum 100 mmol/L (Normal) Range: 97-108 Potassium, Serum 4.2 mmol/L (Normal) Range: 3.5-5.2 Sodium, Serum 140 mmol/L (Normal) Range: 134-144 BUN/Creatinine Ratio 16 (Normal) Range: 10-22 eGFR If Africn Am 77 mL/min/1.73 (Normal) eGFR If NonAfricn Am 66 mL/min/1.73 (Normal) Creatinine, Serum 1.06 mg/dL (Normal) Range: 0.76-1.27 BUN 17 mg/dL (Normal) Range: 8-27 Glucose, Serum 96 mg/dL (Normal) Range: 65-99 :33 LIPID PANEL (37538) Comments: PATIENT WAS FASTINGPERFORMED BY: LabCoSt. Luke's Warren HospitalMvztco0220 [facility] [id number] LDL/HDL Ratio 2.4 {ratio_units} (Normal) Range: 0.0-3.6 Comments: LDL/HDL Ratio Men Women 1/2 Avg.Risk 1.0 1.5 Av g.Risk 3.6 3.2 2X Avg.Risk 6.2 5.0 3X Avg.Risk 8.0 6.1 LDL Cholesterol Calc 81 mg/dL (Normal) Range: 0-99 VLDL Cholesterol Kylie 25 mg/dL (Normal) Range: 5-40 HDL Cholesterol 34 mg/dL (Abnormal) Comments: According to ATP-III Guidelines, HDL-C >59 mg/dL is considered anegative risk factor for CHD. Triglycerides 127 mg/dL (Normal) Range: 0-149 Cholesterol, Total 140 mg/dL (Normal) Range: 100-199 :33 CBC WITH MANUAL DIFF Comments: PATIENT WAS FASTINGPERFORMED BY: LabCoSt. Luke's Warren HospitalCtwrfa0333 [facility] [id number] Information: [id number] (28528) Immature Grans (Abs) 0.0 {x10E3/uL} (Normal) Range: 0.0-0.1 Immature Granulocytes 0 % (Normal) Baso (Absolute) 0.0 {x10E3/uL} (Normal) Range: 0.0-0.2 Eos (Absolute) 0.1 {x10E3/uL} (Normal) Range: 0.0-0.4 Monocytes(Absolute) 0.4 {x10E3/uL} (Normal) Range: 0.1-0.9 Lymphs (Absolute) 1.7 {x10E3/uL} (Normal) Range: 0.7-3.1 Neutrophils (Absolute) 3.0 {x10E3/uL} (Normal) Range: 1.4-7.0 Basos 0 % (Normal) Eos 2 % (Normal) Monocytes 7 % (Normal) Lymphs 33 % (Normal) Neutrophils 58 % (Normal) Platelets 175 {x10E3/uL} (Normal) Range: 150-379 RDW 13.3 % (Normal) Range: 12.3-15.4 MCHC 33.6 g/dL (Normal) Range: 31.5-35.7 MCH 29.6 pg (Normal) Range: 26.6-33.0 MCV 88 fL (Normal) Range: 79-97 Hematocrit 41.7 % (Normal) Range: 37.5-51.0 Hemoglobin 14.0 g/dL (Normal) Range: 12.6-17.7 RBC 4.73 {x10E6/uL} (Normal) Range: 4.14-5.80 WBC 5.3 {x10E3/uL} (Normal) Range: 3.4-10.8 :09 HgA1C , Office (43766) HgA1C , Office 5.6 % (Normal) Range: 4.6 - 7.1 4-Lea-954228:09 Blood Glucose , Office (17054) Blood Glucose , Office 122 (Normal) 25-Bob-109898:41 Throat Culture (96437) Comments: PATIENT NOT FASTINGPERFORMED BY: [facility]6370 [facility] [id number] Information: SRC:THRT [id number] Result 1 RRF (Normal) Comments: Routine respiratory jose antonio Upper Respiratory Culture Final report (Normal) 45-Tum-28008:38 Rapid Strep Test, Office (12031) Rapid Strep Test, Office Negative (Normal) 25-Xpl-719816:37 Blood Glucose , Office (06457) Blood Glucose , Office 123 (Normal) 85-Hau-257967:37 HgA1C , Office (13763) HgA1C , Office 5.9 % (Normal) Range: 4.6 - 7.1 79-Kmy-216343:11 METABOLIC PANEL, Comments: PATIENT NOT FASTINGPERFORMED BY: [facility]John [facility]. [facility]6370 [facility] [id number] Information: [id number] COMPREHENSIVE (16053) ALT (SGPT) 27 [iU]/L (Normal) Range: 0-44 AST (SGOT) 22 [iU]/L (Normal) Range: 0-40 Alkaline Phosphatase, S 59 [iU]/L (Normal) Range: 39-117 Bilirubin, Total 0.6 mg/dL (Normal) Range: 0.0-1.2 A/G Ratio 1.7 (Normal) Range: 1.1-2.5 Globulin, Total 2.4 g/dL (Normal) Range: 1.5-4.5 Albumin, Serum 4.0 g/dL (Normal) Range: 3.5-4.8 Protein, Total, Serum 6.4 g/dL (Normal) Range: 6.0-8.5 Calcium, Serum 9.4 mg/dL (Normal) Range: 8.6-10.2 Carbon Dioxide, Total 27 mmol/L (Normal) Range: 18-29 Comments: Please note reference interval change Chloride, Serum 101 mmol/L (Normal) Range: 97-108 Potassium, Serum 4.0 mmol/L (Normal) Range: 3.5-5.2 Sodium, Serum 139 mmol/L (Normal) Range: 134-144 BUN/Creatinine Ratio 14 (Normal) Range: 10-22 eGFR If Africn Am 85 mL/min/1.73 (Normal) eGFR If NonAfricn Am 74 mL/min/1.73 (Normal) Creatinine, Serum 0.98 mg/dL (Normal) Range: 0.76-1.27 BUN 14 mg/dL (Normal) Range: 8-27 Glucose, Serum 90 mg/dL (Normal) Range: 65-99 52-Elu-237220:11 LIPID PANEL (19659) Comments: PATIENT NOT FASTINGPERFORMED BY: [employer] Ivgjza4004 [facility] [id number] LDL/HDL Ratio 2.0 {ratio_units} (Normal) Range: 0.0-3.6 LDL Cholesterol Calc 69 mg/dL (Normal) Range: 0-99 VLDL Cholesterol Kylie 21 mg/dL (Normal) Range: 5-40 HDL Cholesterol 35 mg/dL (Abnormal) Comments: According to ATP-III Guidelines, HDL-C >59 mg/dL is considered anegative risk factor for CHD. Triglycerides 103 mg/dL (Normal) Range: 0-149 Cholesterol, Total 125 mg/dL (Normal) Range: 100-199 5-Laj-140341:19 Comp. Metabolic Panel (14) Comments: PERFORMED BY: [employer]Got[employer]uff [employer] Ecepgb1509 [facility] [id number] ALT (SGPT) 26 [iU]/L (Normal) Range: 0-44 AST (SGOT) 25 [iU]/L (Normal) Range: 0-40 Alkaline Phosphatase, S 59 [iU]/L (Normal) Range: 39-117 Bilirubin, Total 0.6 mg/dL (Normal) Range: 0.0-1.2 A/G Ratio 1.4 (Normal) Range: 1.1-2.5 Globulin, Total 3.0 g/dL (Normal) Range: 1.5-4.5 Albumin, Serum 4.3 g/dL (Normal) Range: 3.5-4.8 Protein, Total, Serum 7.3 g/dL (Normal) Range: 6.0-8.5 Calcium, Serum 9.5 mg/dL (Normal) Range: 8.6-10.2 Carbon Dioxide, Total 28 mmol/L (Normal) Range: 19-28 Chloride, Serum 100 mmol/L (Normal) Range: 97-108 Potassium, Serum 4.1 mmol/L (Normal) Range: 3.5-5.2 Sodium, Serum 139 mmol/L (Normal) Range: 134-144 BUN/Creatinine Ratio 16 (Normal) Range: 10-22 eGFR If Africn Am 69 mL/min/1.73 (Normal) eGFR If NonAfricn Am 60 mL/min/1.73 (Normal) Creatinine, Serum 1.16 mg/dL (Normal) Range: 0.76-1.27 BUN 19 mg/dL (Normal) Range: 8-27 Glucose, Serum 93 mg/dL (Normal) Range: 65-99 :19 Lipid Panel With LDL/HDL Comments: PERFORMED BY: [facility] [id number] Ratio LDL Cholesterol Calc 88 mg/dL (Normal) Range: 0-99 LDL/HDL Ratio 2.3 {ratio_units} (Normal) Range: 0.0-3.6 HDL Cholesterol 38 mg/dL (Abnormal) Comments: According to ATP-III Guidelines, HDL-C >59 mg/dL is considered anegative risk factor for CHD. VLDL Cholesterol Kylie 26 mg/dL (Normal) Range: 5-40 Cholesterol, Total 152 mg/dL (Normal) Range: 100-199 Triglycerides 128 mg/dL (Normal) Range: 0-149 :19 Platelet Count on Citrated Comments: PERFORMED BY: [employer] [facility] [id number] Bld Plt Count, Citrated PAC {X10E3/uL} Range: 155-379 Bld (Normal) Comments: Platelets appear clumped. Vitamin D, 29.0 ng/mL (Abnormal) Comments: PERFORMED BY: [employer] Venegas [facility] [id number] :19 25-Hydroxy Range: 30.0-100.0 Comments: Vitamin D deficiency has been defined by the [place] of[place]icine and an Endocrine Society practice guideline as alevel of serum 25-OH vitamin D less than 20 ng/mL (1,2).The Endocrine Society went on to further define vitamin Dinsufficiency as a level between 21 and 29 ng/mL (2).1. IOM ([place] [employer]). 2010. Dietary reference intakes for calcium and D. [place]: The National Academies Press.2. Fernando MF, Cedric AGUIAR, Teresa ALBERTS, et al. Evaluation, treatment, and prevention of vitamin D deficiency: an Endocrine Society clinical practice guideline. JCEM. 2010; 96(7):1911-30. :18 Blood Glucose , Office (26924) Blood Glucose , Office 126 (Normal) :18 HgA1C , Office (22544) HgA1C , Office 5.3 % (Normal) Range: 4.6 - 7.1 :37 CBC (Auto) (90218) Comments: citrate tube; PATIENT NOT FASTINGPERFORMED BY: [employer] Pjzjiv3249 [facility] [id number] Information: ADD [id number] AND DRAW FEE 99 6660 Platelets 154 {x10E3/uL} (Abnormal) Range: 155-379 MCHC 33.8 g/dL (Normal) Range: 31.5-35.7 RDW 13.7 % (Normal) Range: 12.3-15.4 MCH 29.7 pg (Normal) Range: 26.6-33.0 MCV 88 fL (Normal) Range: 79-97 Hematocrit 42.6 % (Normal) Range: 37.5-51.0 Hemoglobin 14.4 g/dL (Normal) Range: 12.6-17.7 RBC 4.85 {x10E6/uL} (Normal) Range: 4.14-5.80 WBC 5.0 {x10E3/uL} (Normal) Range: 3.4-10.8 :24 Blood Glucose , Office (05596) Blood Glucose , Office 113 (Normal) :24 HgA1C , Office (44063) HgA1C , Office 5.2 % (Normal) Range: 4.6 - 7.1 :47 PSA (Prostate Specific Comments: PATIENT NOT FASTINGPERFORMED BY: Glisten6370 [facility] [id number] Information: [id number] Antigen), Screening (01649) Prostate Specific Ag, 0.8 ng/mL (Normal) Range: 0.0-4.0 Serum Comments: Teresa ECLIA methodology. .According to the [place] [employer], Serum PSA shoulddecrease and remain at undetectable levels after radicalprostatectomy. The AUA defines biochemical recurrence as an initialPSA value 0.2 ng/mL or greater followed by a subsequent confirmatoryPSA value 0.2 ng/mL or greater.Values obtained with d ifferent assay methods or kits cannot be usedinterchangeably. Results cannot be interpreted as absolute evidenceof the presence or absence of malignant disease. 38-Ckb-111099:55 HgA1C , Office (89394) HgA1C , Office 5.6 % (Normal) Range: 4.6 - 7.1 :55 Blood Glucose , Office (13460) Blood Glucose , Office 111 (Normal) :08 CBC WITH MANUAL DIFF Comments: 4 months; PATIENT WAS FASTINGPERFORMED BY: [facility]ronCoSt[facility] HospitalLornal1221 [facility] [id number] Information: [id number] (82828) Immature Grans (Abs) 0.0 {x10E3/uL} (Normal) Range: 0.0-0.1 Immature Granulocytes 0 % (Normal) Range: 0-2 Baso (Absolute) 0.0 {x10E3/uL} (Normal) Range: 0.0-0.2 Eos (Absolute) 0.2 {x10E3/uL} (Normal) Range: 0.0-0.4 Monocytes(Absolute) 0.6 {x10E3/uL} (Normal) Range: 0.1-1.0 Lymphs (Absolute) 1.8 {x10E3/uL} (Normal) Range: 0.7-4.5 Neutrophils (Absolute) 2.8 {x10E3/uL} (Normal) Range: 1.8-7.8 Basos 0 % (Normal) Range: 0-3 Eos 3 % (Normal) Range: 0-7 Monocytes 10 % (Normal) Range: 4-13 Lymphs 34 % (Normal) Range: 14-46 Neutrophils 53 % (Normal) Range: 40-74 Platelets 165 {x10E3/uL} (Normal) Range: 140-415 RDW 13.9 % (Normal) Range: 12.3-15.4 MCHC 34.1 g/dL (Normal) Range: 31.5-35.7 MCH 29.8 pg (Normal) Range: 26.6-33.0 MCV 88 fL (Normal) Range: 79-97 Hematocrit 41.7 % (Normal) Range: 37.5-51.0 Hemoglobin 14.2 g/dL (Normal) Range: 12.6-17.7 RBC 4.76 {x10E6/uL} (Normal) Range: 4.14-5.80 WBC 5.4 {x10E3/uL} (Normal) Range: 4.0-10.5 [id number] METABOLIC PANEL, COMPREHENSIVE Comments: PATIENT WAS FASTINGPERFORMED BY: [id number] [id number] ([id number]) ALT (SGPT) 22 [iU]/L (Normal) Range: 0-44 AST (SGOT) 20 [iU]/L (Normal) Range: 0-40 Alkaline Phosphatase, S 54 [iU]/L (Normal) Range: 25-160 Bilirubin, Total 0.7 mg/dL (Normal) Range: 0.0-1.2 A/G Ratio 1.6 (Normal) Range: 1.1-2.5 Globulin, Total 2.8 g/dL (Normal) Range: 1.5-4.5 Albumin, Serum 4.4 g/dL (Normal) Range: 3.5-4.8 Protein, Total, Serum 7.2 g/dL (Normal) Range: 6.0-8.5 Calcium, Serum 9.2 mg/dL (Normal) Range: 8.6-10.2 Carbon Dioxide, Total 27 mmol/L (Normal) Range: 20-32 Chloride, Serum 99 mmol/L (Normal) Range: 97-108 Potassium, Serum 3.8 mmol/L (Normal) Range: 3.5-5.2 Sodium, Serum 140 mmol/L (Normal) Range: 134-144 BUN/Creatinine Ratio 16 (Normal) Range: 10-22 eGFR If Africn Am 79 mL/min/1.73 (Normal) eGFR If NonAfricn Am 68 mL/min/1.73 (Normal) Creatinine, Serum 1.05 mg/dL (Normal) Range: 0.76-1.27 BUN 17 mg/dL (Normal) Range: 8-27 Glucose, Serum 89 mg/dL (Normal) Range: 65-99 :08 LIPID PANEL ([id number]) Comments: PATIENT WAS FASTINGPERFORMED BY: [id number] [id number] LDL/HDL Ratio 1.9 {ratio_units} (Normal) Range: 0.0-3.6 HDL Cholesterol 33 mg/dL (Abnormal) Comments: According to ATP-III Guidelines, HDL-C >59 mg/dL is considered anegative risk factor for CHD. LDL Cholesterol Calc 63 mg/dL (Normal) Range: 0-99 VLDL Cholesterol Kylie 24 mg/dL (Normal) Range: 5-40 Triglycerides 120 mg/dL (Normal) Range: 0-149 Cholesterol, Total 120 mg/dL (Normal) Range: 100-199 :08 TSH ([id number]) Comments: PATIENT WAS FASTINGPERFORMED BY: [id number] [facility] [id number] TSH 4.380 {uIU/mL} (Normal) Range: 0.450-4.500 63-Hzb-187850:04 C-Reactive Protein ([id number]) Comments: PATIENT NOT FASTINGPERFORMED BY: [facility]St[facility] HospitalBjrvcm2226 [facility] [id number] C-Reactive Protein, Quant 4.5 mg/L (Normal) Range: 0.0-4.9 95-Qam-315955:04 Sed Rate Erythrocyte Comments: PATIENT NOT FASTINGPERFORMED BY: [facility]zoSt[facility] HospitalKpfdou4306 [facility] [id number] Information: [id number] ([id number]) Sedimentation Rate-Westergren 5 mm/h (Normal) Range: 0-30 85-Vdy-093957:22 HgA1C , Office (47105) HgA1C , Office 5.3 % (Normal) Range: 4.6 - 7.1 31-Owz-830329:22 Blood Glucose , Office (44161) Blood Glucose , Office 111 (Normal) 64-Phb-86660:17 Microscopic Examination Comments: PATIENT WAS FASTINGPERFORMED BY: [facility] Ozjwcm6[address] [place] [id number] Bacteria None seen (Normal) Mucus Threads Present (Normal) Epithelial Cells (non renal) None seen {/hpf} (Normal) Range: 0 - 10 RBC 0-3 {/hpf} (Normal) Range: 0 - 3 WBC None seen {/hpf} (Normal) Range: 0 - 5 6-Opa-016674:30 ABDOMEN/PELVIS WITHOUT CONT Radiology Report See Note (Normal) Comments: PROCEDURE: CT ABDOMEN AND PELVIS WITHOUT CONTRAST REASON FOR EXAM: Male, 76 years old. Right flank pain radiating to theright groin. RADIATION DOSAGE (If Supplied By Facility): CTDIvol = ( 12.72 ) mGy, DLP=( 675.01 ) mGycm TECHNIQUE: Transaxial images were obtained from the dome of thediaphragmto the symphysis pubis without oral contrast, and without intravenouscontrast. Multiplanar coronal an d sagittal images were reformatted.Thisexamination is limited for the evaluation of solid organs and vascularstructures due to the lack of intravenous contrast. COMPARISON: CT scan of the abdomen and pelvis 11/21/2009. FINDINGS:The visualized lung bases are unremarkable. There is a small pericardialeffusion Normal unenhanced liver. The gallbladder is not visualized and isreportedly surgically absen t. Normal unenhanced spleen. Normalpancreas. Normal bilateral adrenal glands. Normal size of the right kidney. There are multiple right renal corticalcysts, the largest of which emanates from the upp er pole, measuring 3.5cmin maximal dimension. There are no right renal calculi. There is norighthydronephrosis. Normal visualized right ureter. Normal size of the left kidney. There is a 2.4-cm left renal corticalcyst. There is also a 9-mm exophytic hyperdense left lower pole renalcortical cyst. There are no left renal calculi. There is no lefthydronephrosis. Normal visualized left ureter. The re is a small hiatal hernia. Normal small intestine. There aremultiple colonic diverticula consistent with diverticulosis. There isnon-visualization of the appendix, which is reportedly surgically ab sent. There is no demonstrated peritoneal fluid. There is mild atherosclerotic calcification of the abdominal aorta,withouta demonstrated aneurysm. Normal inferior vena cava. Normalretroperitoneum. No rmal urinary bladder. There is no pelvic mass lesion orlymphadenopathy.There is no pelvic fluid. There are prostatic calcifications. There are fat- containing umbilical and left inguinal hernias. Ther e arediffuse degenerative changes of the visualized lumbar spine. IMPRESSION:Prior cholecystectomy and appendectomy.Bilateral renal cysts.No appreciable nephroureterolithiasis, hydronephrosis or hydrour eter.Diverticulosis coli.Small fat containing umbilical and left inguinal hernias. Signed:Leesa Leon M.D.December 31, 2011 at 5:51:04 PM [id number] Signed SHANEKA/SHANEKA If you are the ref erring physician and would like to consult with theradiologist who provided this interpretation, please contact Earnest Calix at [phone]. If this radiologist is unavailable, you will bedirected to another radiologist to assist. If you are a patient with a question regarding this report, pleasecontactyour referring physician directly. Professional Interpretation Provided By: [employer], Phone , These documents contain legally protected and confidential healthinformation intended only for the use of the individual or entity namedabove. If you are not the intende d recipient, you are hereby notifiedthatany disclosure, copying, distribution, or other use of these documents isstrictly prohibited. If you have received this information in error,pleasenotify the send er immediately and arrange for the return or destructionofthese documents. Dictated on 12/31/11 1637 by LEESA LEONTranscribed on 01/01/12 1004 by ITS IMPORTSign by LEESA LEON on 01/01/12 1005 Sign by: LEESA LEON 4-Kzo-403201:59 CBC with manual diff Comments: PATIENT NOT FASTINGPERFORMED BY: [facility]John [facility]6370 [facility] [id number] Information: [id number] ([id number]) Immature Grans (Abs) 0.0 {x10E3/uL} (Normal) Range: 0.0-0.1 Immature Granulocytes 0 % (Normal) Range: 0-2 Baso (Absolute) 0.0 {x10E3/uL} (Normal) Range: 0.0-0.2 Eos (Absolute) 0.3 {x10E3/uL} (Normal) Range: 0.0-0.4 Monocytes(Absolute) 0.5 {x10E3/uL} (Normal) Range: 0.1-1.0 Lymphs (Absolute) 1.9 {x10E3/uL} (Normal) Range: 0.7-4.5 Neutrophils (Absolute) 3.1 {x10E3/uL} (Normal) Range: 1.8-7.8 Basos 0 % (Normal) Range: 0-3 Eos 5 % (Normal) Range: 0-7 Monocytes 8 % (Normal) Range: 4-13 Lymphs 33 % (Normal) Range: 14-46 Neutrophils 54 % (Normal) Range: 40-74 Platelets 159 {x10E3/uL} (Normal) Range: 140-415 RDW 13.7 % (Normal) Range: 12.3-15.4 MCHC 34.7 g/dL (Normal) Range: 31.5-35.7 MCH 29.7 pg (Normal) Range: 26.6-33.0 MCV 86 fL (Normal) Range: 79-97 Hematocrit 41.2 % (Normal) Range: 37.5-51.0 Hemoglobin 14.3 g/dL (Normal) Range: 12.6-17.7 RBC 4.82 {x10E6/uL} (Normal) Range: 4.14-5.80 WBC 5.8 {x10E3/uL} (Normal) Range: 4.0-10.5 2-Nlx-684412:59 Renal function Panel (31481) Comments: PATIENT NOT FASTINGPERFORMED BY: [facility] Kgbdmq2373 [facility] [id number] Albumin, Serum 4.5 g/dL (Normal) Range: 3.5-4.8 Phosphorus, Serum 3.8 mg/dL (Normal) Range: 2.5-4.5 Calcium, Serum 9.6 mg/dL (Normal) Range: 8.6-10.2 Carbon Dioxide, Total 26 mmol/L (Normal) Range: 20-32 Chloride, Serum 99 mmol/L (Normal) Range: 97-108 Potassium, Serum 3.9 mmol/L (Normal) Range: 3.5-5.2 Sodium, Serum 139 mmol/L (Normal) Range: 134-144 BUN/Creatinine Ratio 16 (Normal) Range: 10-22 eGFR If Africn Am 97 mL/min/1.73 (Normal) eGFR If NonAfricn Am 84 mL/min/1.73 (Normal) Creatinine, Serum 0.86 mg/dL (Normal) Range: 0.76-1.27 BUN 14 mg/dL (Normal) Range: 8-27 Glucose, Serum 90 mg/dL (Normal) Range: 65-99 1-Yry-239842:20 Urinalysis, Office (31541) UA - BILIRUBIN Negative (Normal) UA - BLOOD Negative (Normal) UA - GLUCOSE Negative (Normal) UA - KETONES Negative mg/dL (Normal) UA - LEUKOCYTE ESTERASE Negative (Normal) UA - NITRITE Negative (Normal) UA - PH 6.0 (Normal) UA - PROTEIN Negative mg/dL (Normal) UA - SPECIFIC GRAVITY 1.015 (Normal) URINE UROBILINGN RENÉE TIMED 2 mg/dL (Normal) :17 LIPID PANEL (31322) Comments: copy to [facility]; PATIENT WAS FASTINGPERFORMED BY: WhoGotStuff LabCrude Arearp Ssqlio3553 [facility] [id number] LDL/HDL Ratio 2.1 {ratio_units} (Normal) Range: 0.0-3.6 LDL Cholesterol Calc 75 mg/dL (Normal) Range: 0-99 VLDL Cholesterol Kylie 32 mg/dL (Normal) Range: 5-40 HDL Cholesterol 35 mg/dL (Abnormal) Comments: According to ATP-III Guidelines, HDL-C >59 mg/dL is considered anegative risk factor for CHD. Triglycerides 159 mg/dL (Abnormal) Range: 0-149 Cholesterol, Total 142 mg/dL (Normal) Range: 100-199 :17 URINALYSIS, W/ MICRO (60848) Comments: PATIENT WAS FASTINGPERFORMED BY: Advisor Client MatchSt. Luke's [facility] HospitalTwtnol4116 [facility] [id number] Microscopic Examination See below: (Normal) Microscopic Examination MICRON (Normal) Comments: Microscopic follows if indicated. Nitrite, Urine Negative (Normal) Urobilinogen,Semi-Qn 0.2 mg/dL (Normal) Range: 0.0-1.9 Bilirubin Negative (Normal) Occult Blood Negative (Normal) Ketones Negative (Normal) Glucose Negative (Normal) Protein Negative (Normal) WBC Esterase Negative (Normal) Appearance Clear (Normal) Urine-Color Yellow (Normal) pH 7.5 (Normal) Range: 5.0-7.5 Specific [place] 1.016 (Normal) Range: 1.005-1.030 89-Eqa-27642:17 METABOLIC PANEL, COMPREHENSIVE Comments: PATIENT WAS FASTINGPERFORMED BY: Advisor Client MatchSt. Luke's Warren HospitalSithci9287 [facility] [id number] ([id number]) ALT (SGPT) 29 [iU]/L (Normal) Range: 0-44 Comments: Please note reference interval change AST (SGOT) 24 [iU]/L (Normal) Range: 0-40 Alkaline Phosphatase, S 56 [iU]/L (Normal) Range: 25-160 Bilirubin, Total 0.7 mg/dL (Normal) Range: 0.0-1.2 A/G Ratio 1.4 (Normal) Range: 1.1-2.5 Globulin, Total 3.0 g/dL (Normal) Range: 1.5-4.5 Albumin, Serum 4.3 g/dL (Normal) Range: 3.5-4.8 Protein, Total, Serum 7.3 g/dL (Normal) Range: 6.0-8.5 Calcium, Serum 9.3 mg/dL (Normal) Range: 8.6-10.2 Carbon Dioxide, Total 26 mmol/L (Normal) Range: 20-32 Chloride, Serum 100 mmol/L (Normal) Range: 97-108 Potassium, Serum 3.6 mmol/L (Normal) Range: 3.5-5.2 Sodium, Serum 138 mmol/L (Normal) Range: 134-144 BUN/Creatinine Ratio 14 (Normal) Range: 10-22 eGFR If Africn Am 79 mL/min/1.73 (Normal) eGFR If NonAfricn Am 68 mL/min/1.73 (Normal) Creatinine, Serum 1.05 mg/dL (Normal) Range: 0.76-1.27 BUN 15 mg/dL (Normal) Range: 8-27 Glucose, Serum 93 mg/dL (Normal) Range: 65-99 27-Nit-10863:17 CBC WITH MANUAL DIFF Comments: PATIENT WAS FASTINGPERFORMED BY: [facility]John [facility]. [facility]6370 [facility] [id number] Information: [id number] (40131) Immature Grans (Abs) 0.0 {x10E3/uL} (Normal) Range: 0.0-0.1 Immature Granulocytes 0 % (Normal) Range: 0-2 Baso (Absolute) 0.0 {x10E3/uL} (Normal) Range: 0.0-0.2 Eos (Absolute) 0.1 {x10E3/uL} (Normal) Range: 0.0-0.4 Monocytes(Absolute) 0.4 {x10E3/uL} (Normal) Range: 0.1-1.0 Lymphs (Absolute) 1.7 {x10E3/uL} (Normal) Range: 0.7-4.5 Neutrophils (Absolute) 3.1 {x10E3/uL} (Normal) Range: 1.8-7.8 Basos 0 % (Normal) Range: 0-3 Eos 2 % (Normal) Range: 0-7 Monocytes 8 % (Normal) Range: 4-13 Lymphs 32 % (Normal) Range: 14-46 Neutrophils 58 % (Normal) Range: 40-74 Platelets 154 {x10E3/uL} (Normal) Range: 140-415 RDW 13.8 % (Normal) Range: 12.3-15.4 MCHC 33.3 g/dL (Normal) Range: 31.5-35.7 MCH 29.1 pg (Normal) Range: 26.6-33.0 MCV 87 fL (Normal) Range: 79-97 Hematocrit 41.8 % (Normal) Range: 37.5-51.0 Hemoglobin 13.9 g/dL (Normal) Range: 12.6-17.7 RBC 4.78 {x10E6/uL} (Normal) Range: 4.14-5.80 WBC 5.3 {x10E3/uL} (Normal) Range: 4.0-10.5 :55 HgA1C , Office (13797) HgA1C , Office 5.3 % (Normal) Range: 4.6 - 7.1 :55 Blood Glucose , Office (95852) Blood Glucose , Office 120 (Normal) :00 MRA HEAD WITHOUT CONTRAST Radiology Report See Note (Normal) Comments: PROCEDURE: MRA OF THE HEAD WITHOUT CONTRAST REASON FOR EXAM: Male, 76 years old. Severe headache. TECHNIQUE: 3-D ubsl-su-rtatim (TOF) imaging was performed with MIPs.Thestudy was performed unenh anced. This is a limited study due to motionartifact. The patient is claustrophobic. COMPARISON: None. FINDINGS:Normal bilateral petrous carotid arteries. There is ectatic elongationandtortuosity o f the right cavernous carotid artery, without a demonstratedhemodynamically significant stenosis. There is ectatic elongation andtortuosity of the left cavernous carotid artery, without a demonstratedh emodynamically significant stenosis. Normal right A1 segments of the anterior cerebral artery. There isnon-visualization of the left A1 segment of the anterior cerebralarteriesconsistent with either ap lastic development or an occlusion. Normalintactanterior communicating artery (ACOM). Normal bilateral A2 segments oftheanterior cerebral arteries. Normal right M1 and M2 segments of the middle cerebr al arteries, with anormal M1 bifurcation. Normal left M1 and M2 segments of the middlecerebral arteries, with a normal M1 bifurcation. Normal right posterior communicating artery (PCOM). Normal leftp osteriorcommunicating artery (PCOM). Normal bilateral vertebral arteries. Normal basilar artery with anormalbasilar bifurcation. The visualized bilateral superior cerebellar (SCA)arteries are cintia l. Normal bilateral P1, P2 and visualized P3 segments of the posteriorcerebral arteries. There is no demonstrated aneurysm of the [place]. There is nomajor vessel occlusion or hemodynamically significant stenosis. There isno demonstrated abnormality of the visualized brain. IMPRESSION:There is no evidence of aneurysmal formation. 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 Signed:Abdoulaye Garcia M.D.December 24, 2011 at 8:25:06 AM [id number] Signed GP/GP If you are the referring physician and would like to consul t with theradiologist who provided this interpretation, please contact Earnest Underwood at [phone]. If this radiologist is unavailable, youwill be directed to another radiologist to assist. If you are a patient with a question regarding this report, pleasecontactyour referring physician directly. Professional Interpretation Provided By: [employer], Phone , th vitaliy documents contain legally protected and confidential healthinformation intended only for the use of the individual or entity namedabove. If you are not the intended recipient, you are hereby notifie dthatany disclosure, copying, distribution, or other use of these documents isstrictly prohibited. If you have received this information in error,pleasenotify the sender immediately and arrange for the return or destructionofthese documents. Dictated on 12/24/11 0709 by Jose HARRY,Pankajranscribed on 12/24/11 1031 by ITS IMPORTSign by Abdoulaye Garcia MD on 12/24/11 1032 Sign by: Abdoulaye Garcia MD 91-Vyd-870486:46 BRAIN/HEAD W/WO CONTRAST Radiology Report See Note (Normal) Comments: PROCEDURE: CT BRAIN WITH AND WITHOUT CONTRAST REASON FOR EXAM: Male, 76 years old. Headache RADIATION DOSAGE (If Supplied By Facility): CTDIvol = ( 53.42 ) mGy, DLP=( 2343.80 ) mGycm TECHNIQUE: Transaxial CT imaging of the brain was performed pre andpostcontrast administration. The examination was performed with intravenousadministration of 50ml ml of Isovue 300 contrast material. COMPARISON: None. FINDINGS:There is mild prominence of the ventricles and extra-axial spaces, notinappropriate for the patient's age.. Normal white matter tracts of the supratentorial brain. Normal basalganglia and thalami. Normal brainstem. Normal cerebellum. There is no demonstrated extra-axial, intraparenchymal, orintraventricularhemorrhage. There are no findings of an acute ischemic infarction. There i s nodemonstrated enhancing abnormality. There is mild prominence of the right M1 segment series 1002/19, duaolj9954/18-19 which may represent tortuosity or ectasia, aneurysm lesslikely. Normal calvariu m. There is no demonstrated fracture. Normal soft tissue structures. Normal visualized paranasal sinuses. IMPRESSION:The right and one segment is a little prominent, likely due to tortuosityor ectasia rather than aneurysm. MRA could be done for furtherevaluation.Only, of course, if clinically indicated. Otherwise unremarkable enhanced and unenhanced CT scan of the brain. Signed:Mohan Moseley M.D.Nov at 4:48:04 PM [id number] Signed PF/PF If you are the referring physician and would like to consult with theradiologist who provided this interpretation, please contact Escobar Gaston M.D. at [phone]. If this radiologist is unavailable, you will bedirected to another radiologist to assist. If you are a patient with a question regarding this report, pleasecontactyour r [facility] physician directly. Professional Interpretation Provided By: Inspherion, Phone , These documents contain legally protected and confidential healthinformation inte nded only for the use of the individual or entity namedabove. If you are not the intended recipient, you are hereby notifiedthatany disclosure, copying, distribution, or other use of these documents iss trictly prohibited. If you have received this information in error,pleasenotify the sender immediately and arrange for the return or destructionofthese documents. Dictated on 12/20/11 1551 by Mohan Moseley MDTranscribed on 12/20/111653 by ITS IMPORTSign by Mohan Moseley MD on 12/20/111654 Sign by: Mohan Moseley MD 47-Akh-163763:46 SPINE,CERVICAL WITHOUT CONTRAS Radiology Report See Note (Normal) Comments: PROCEDURE: CT CERVICAL SPINE WITHOUT CONTRAST REASON FOR EXAM: Male, 76 years old. Headache RADIATION DOSAGE (If Supplied By Facility): CTDIvol = ( ) mGy, DLP =() mGycm TECHNIQUE: High resolu tion transaxial imaging was performed withoutcontrast material. Sagittal and coronal images were reconstructed. COMPARISON: None FINDINGS:Normal craniovertebral junction. Normal anterior atlantoaxial articulation. Normal odontoid process. Normal cervical lordosis. Normal vertebral bodies and posterior osseouselements. Normal alignment of the cervical vertebrae. There is nodemonstrated compressio n deformity or fracture of the visualizedcervicalvertebrae. There is no lytic or blastic lesion. C2-3: Normal endplates. Normal disc height. Minimal midline posteriorprotrusion.. Small joint and fa cet arthrosis. Normal central canal andintervertebral neuroforamina. C3-4: Mild endplate spondylosis. Moderate disk narrowing. Posteriorbonybar/disk complex. Small joint and facet arthrosis. There is at leastmoderate bilateral bony foraminal narrowing, and at least mild spinalstenosis. C4-5: Normal endplates. Normal disc height. Minimal midlineprotrusion.Small joint and facet arthrosis. Mild bony foraminal narrowing on theleft, no narrowing on the right, no significant spinal stenosis. C5-6: Endplate spondylosis. Moderate disk narrowing. Posterior bonybar/disk complex. Small joint, and facet arthrosis. There is at leastmoderate bilateral bony foraminal narrowing, moderate spinal stenosis. C6-7: Endplate spondylosis. Mild disk narrowing. Posterior bony bar/diskcomplex. Small join t and facet arthrosis. There is mild bilateral bonyforaminal narrowing, moderate spinal stenosis. C7-T1: Minimal endplate spondylosis. Minimal disk narrowing. Minimalposterior bony bar/disk complex. Small joint and facet arthrosis. Mildbony foraminal narrowing on the left, no narrowing on the right, at leastmild spinal stenosis. Normal visualized soft tissue structures. IMPRESSION:No acute abnor mality. Degenerative changes. Signed:Mohan Moseley M.D.December 20, 2011 at 7:16:11 PM [id number] Signed PF/PF If you are the referring physician and would like to consult with marii fatima who provided this interpretation, please contact Mohan Moseley M.D. at [phone]. If this radiologist is unavailable, you will bedirected to another radiologist to assist. If you are a patient with a question regarding this report, pleasecontactyour referring physician directly. Professional Interpretation Provided By: Inspherion, Phone , These documents contain legally protected and confidential healthinformation intended only for the use of the individual or entity namedabove. If you are not the intended recipient, you are hereby notifiedthatany disclosure, copying, distribution, or other use of these documents isstrictly prohibited. If you have received this information in error,pleasenotify the sender immediately and arrange for the return or destruction ofthese documents. Dictated on 12/20/111550 by Mohan Moseley MDTranscribed on 12/20/111922 by ITS IMPORTSign by Mohan Moseley MD on 12/20/111922 Sign by: Mohan Moseley MD 47-Thl-661580:00 CREATININE BLOOD ([id number]) Comments: PATIENT NOT FASTINGPERFORMED BY: H2020[facility] [id number] Information: [id number] eGFR If Africn Am 83 mL/min/1.73 (Normal) eGFR If NonAfricn Am 72 mL/min/1.73 (Normal) Creatinine, Serum 1.01 mg/dL (Normal) Range: 0.76-1.27 6-Mnk-705187:50 Aerobic Bacterial Culture Comments: PERFORMED BY: H2020[facility] [id number] Information: SRC:FM Result 1 NG36 (Normal) Comments: No growth in 36 - 48 hours. Aerobic Bacterial Culture Final report (Normal) 36-Kze-002662:04 HgA1C , Office (67502) HgA1C , Office 5.4 % (Normal) Range: 4.6 - 7.1 77-Dwk-68635:34 CBC WITH MANUAL DIFF Comments: PATIENT WAS FASTINGPERFORMED BY: [id number] [facility] [id number] Information: [id number] (78628) Immature Grans (Abs) 0.0 {x10E3/uL} (Normal) Range: 0.0-0.1 Immature Granulocytes 0 % (Normal) Range: 0-2 Baso (Absolute) 0.0 {x10E3/uL} (Normal) Range: 0.0-0.2 Eos (Absolute) 0.1 {x10E3/uL} (Normal) Range: 0.0-0.4 Monocytes(Absolute) 0.4 {x10E3/uL} (Normal) Range: 0.1-1.0 Lymphs (Absolute) 1.9 {x10E3/uL} (Normal) Range: 0.7-4.5 Neutrophils (Absolute) 3.1 {x10E3/uL} (Normal) Range: 1.8-7.8 Basos 0 % (Normal) Range: 0-3 Eos 2 % (Normal) Range: 0-7 Monocytes 7 % (Normal) Range: 4-13 Lymphs 34 % (Normal) Range: 14-46 Neutrophils 57 % (Normal) Range: 40-74 Platelets 191 {x10E3/uL} (Normal) Range: 140-415 RDW 13.6 % (Normal) Range: 11.7-15.0 MCHC 33.8 g/dL (Normal) Range: 32.0-36.0 MCH 29.3 pg (Normal) Range: 27.0-34.0 MCV 87 fL (Normal) Range: 80-98 Hematocrit 42.0 % (Normal) Range: 36.0-50.0 Hemoglobin 14.2 g/dL (Normal) Range: 12.5-17.0 RBC 4.85 {x10E6/uL} (Normal) Range: 4.10-5.60 WBC 5.5 {x10E3/uL} (Normal) Range: 4.0-10.5 :34 LIPID PANEL (83832) Comments: PATIENT WAS FASTINGPERFORMED BY: LabCoSt. Luke's [facility] HospitalLryjhb1535 [facility] [id number] LDL/HDL Ratio 1.7 {ratio_units} (Normal) Range: 0.0-3.6 LDL Cholesterol Calc 61 mg/dL (Normal) Range: 0-99 VLDL Cholesterol Kylie 24 mg/dL (Normal) Range: 5-40 HDL Cholesterol 36 mg/dL (Abnormal) Comments: According to ATP-III Guidelines, HDL-C >59 mg/dL is considered anegative risk factor for CHD. Triglycerides 118 mg/dL (Normal) Range: 0-149 Cholesterol, Total 121 mg/dL (Normal) Range: 100-199 :34 METABOLIC PANEL, COMPREHENSIVE Comments: PATIENT WAS FASTINGPERFORMED BY: LabCoSt. Luke's [facility] HospitalUmakna2978 [facility] [id number] ([id number]) ALT (SGPT) 28 [iU]/L (Normal) Range: 0-55 AST (SGOT) 27 [iU]/L (Normal) Range: 0-40 Alkaline Phosphatase, S 58 [iU]/L (Normal) Range: 25-160 Bilirubin, Total 0.7 mg/dL (Normal) Range: 0.0-1.2 A/G Ratio 1.4 (Normal) Range: 1.1-2.5 Globulin, Total 3.1 g/dL (Normal) Range: 1.5-4.5 Albumin, Serum 4.3 g/dL (Normal) Range: 3.5-4.8 Protein, Total, Serum 7.4 g/dL (Normal) Range: 6.0-8.5 Calcium, Serum 9.1 mg/dL (Normal) Range: 8.6-10.2 Carbon Dioxide, Total 27 mmol/L (Normal) Range: 20-32 Chloride, Serum 98 mmol/L (Normal) Range: 97-108 Potassium, Serum 3.8 mmol/L (Normal) Range: 3.5-5.2 Sodium, Serum 138 mmol/L (Normal) Range: 134-144 BUN/Creatinine Ratio 17 (Normal) Range: 10-22 eGFR If Africn Am 86 mL/min/1.73 (Normal) eGFR If NonAfricn Am 75 mL/min/1.73 (Normal) Creatinine, Serum 0.98 mg/dL (Normal) Range: 0.76-1.27 BUN 17 mg/dL (Normal) Range: 8-27 Glucose, Serum 103 mg/dL (Abnormal) Range: 65-99 43-Fme-70704:34 MICROALBUMIN: CREATININE RATIO Comments: PATIENT WAS FASTINGPERFORMED BY: Advisor Client Match [id number] [facility] [id number] ([id number]) AND (49703) Microalb/Creat Ratio 2.5 {mg/g_creat} (Normal) Range: 0.0-30.0 Microalbumin, Urine 4.4 ug/mL (Normal) Range: 0.0-17.0 Creatinine, Urine 174.4 mg/dL (Normal) Range: 22.0-328.0 99-Lir-496586:55 AMADA CULTURE-OTHER (51486) Comments: PATIENT NOT FASTINGPERFORMED BY: Advisor Client Match [id number] [facility] [id number] Information: SRC:THRT [id number] Result 1 RRF (Normal) Comments: Routine respiratory jose antonio Upper Respiratory Culture Final report (Normal) 79-Ghx-625495:37 Rapid Strep Test, Office (58926) Rapid Strep Test, Office Negative (Normal) :36 MICROALBUMIN: CREATININE RATIO Comments: PATIENT WAS FASTINGPERFORMED BY: Advisor Client Match [id number] [facility] [id number] ([id number]) AND (28318) Microalb/Creat Ratio 1.8 {mg/g_creat} (Normal) Range: 0.0-30.0 Microalbumin, Urine 2.7 ug/mL (Normal) Range: 0.0-17.0 Creatinine, Urine 147.3 mg/dL (Normal) Range: 22.0-328.0 :36 METABOLIC PANEL, COMPREHENSIVE Comments: PATIENT WAS FASTINGPERFORMED BY: Advisor Client [facility] [id number] [facility] [id number] ([id number]) ALT (SGPT) 27 [iU]/L (Normal) Range: 0-55 AST (SGOT) 25 [iU]/L (Normal) Range: 0-40 Alkaline Phosphatase, S 54 [iU]/L (Normal) Range: 25-160 Bilirubin, Total 0.7 mg/dL (Normal) Range: 0.0-1.2 A/G Ratio 1.4 (Normal) Range: 1.1-2.5 Globulin, Total 2.9 g/dL (Normal) Range: 1.5-4.5 Albumin, Serum 4.2 g/dL (Normal) Range: 3.5-4.8 Protein, Total, Serum 7.1 g/dL (Normal) Range: 6.0-8.5 Calcium, Serum 9.0 mg/dL (Normal) Range: 8.6-10.2 Carbon Dioxide, Total 28 mmol/L (Normal) Range: 20-32 Chloride, Serum 100 mmol/L (Normal) Range: 97-108 Potassium, Serum 3.5 mmol/L (Normal) Range: 3.5-5.2 Sodium, Serum 139 mmol/L (Normal) Range: 134-144 BUN/Creatinine Ratio 15 (Normal) Range: 10-22 eGFR If Africn Am 83 mL/min/1.73 (Normal) Comments: Note: A persistent eGFR <60 mL/min/1.73 m2 (3 months or more) mayindicate chronic kidney disease. An eGFR >59 mL/min/1.73 m2 with anelevated urine protein also may indicate chronic kidney disease.Calculated using CKD-EPI formula. eGFR If NonAfricn Am 72 mL/min/1.73 (Normal) Creatinine, Serum 1.01 mg/dL (Normal) Range: 0.76-1.27 BUN 15 mg/dL (Normal) Range: 8-27 Glucose, Serum 87 mg/dL (Normal) Range: 65-99 :36 LIPID PANEL ([id number]) Comments: PATIENT WAS FASTINGPERFORMED BY: [employer] Erlfws2635 [facility] [id number] LDL/HDL Ratio 2.2 {ratio_units} (Normal) Range: 0.0-3.6 LDL Cholesterol Calc 71 mg/dL (Normal) Range: 0-99 VLDL Cholesterol Kylie 30 mg/dL (Normal) Range: 5-40 HDL Cholesterol 32 mg/dL (Abnormal) Comments: According to ATP-III Guidelines, HDL-C >59 mg/dL is considered anegative risk factor for CHD. Triglycerides 148 mg/dL (Normal) Range: 0-149 Cholesterol, Total 133 mg/dL (Normal) Range: 100-199 :36 CBC WITH MANUAL DIFF Comments: PATIENT WAS FASTINGPERFORMED BY: [facility]CoSt. [facility] HospitalHxkfjj7507 [facility] [id number] Information: [id number]; f/u 06/17/11 (95024) Immature Grans (Abs) 0.0 {x10E3/uL} (Normal) Range: 0.0-0.1 Immature Granulocytes 0 % (Normal) Range: 0-2 Baso (Absolute) 0.0 {x10E3/uL} (Normal) Range: 0.0-0.2 Eos (Absolute) 0.1 {x10E3/uL} (Normal) Range: 0.0-0.4 Monocytes(Absolute) 0.3 {x10E3/uL} (Normal) Range: 0.1-1.0 Lymphs (Absolute) 1.7 {x10E3/uL} (Normal) Range: 0.7-4.5 Neutrophils (Absolute) 2.5 {x10E3/uL} (Normal) Range: 1.8-7.8 Basos 0 % (Normal) Range: 0-3 Eos 2 % (Normal) Range: 0-7 Monocytes 7 % (Normal) Range: 4-13 Lymphs 36 % (Normal) Range: 14-46 Neutrophils 55 % (Normal) Range: 40-74 Platelets 166 {x10E3/uL} (Normal) Range: 140-415 RDW 13.4 % (Normal) Range: 11.7-15.0 MCHC 34.8 g/dL (Normal) Range: 32.0-36.0 MCH 29.8 pg (Normal) Range: 27.0-34.0 MCV 86 fL (Normal) Range: 80-98 Hematocrit 39.7 % (Normal) Range: 36.0-50.0 Hemoglobin 13.8 g/dL (Normal) Range: 12.5-17.0 RBC 4.63 {x10E6/uL} (Normal) Range: 4.10-5.60 WBC 4.6 {x10E3/uL} (Normal) Range: 4.0-10.5 78-Gic-032769:14 CBC WITH MANUAL DIFF Comments: PATIENT WAS FASTINGPERFORMED BY: [facility] [id number] Information: [id number] (56504) Immature Grans (Abs) 0.0 {x10E3/uL} (Normal) Range: 0.0-0.1 Immature Granulocytes 0 % (Normal) Range: 0-2 Baso (Absolute) 0.0 {x10E3/uL} (Normal) Range: 0.0-0.2 Eos (Absolute) 0.2 {x10E3/uL} (Normal) Range: 0.0-0.4 Monocytes(Absolute) 0.5 {x10E3/uL} (Normal) Range: 0.1-1.0 Lymphs (Absolute) 1.8 {x10E3/uL} (Normal) Range: 0.7-4.5 Neutrophils (Absolute) 2.7 {x10E3/uL} (Normal) Range: 1.8-7.8 Basos 0 % (Normal) Range: 0-3 Eos 4 % (Normal) Range: 0-7 Monocytes 9 % (Normal) Range: 4-13 Lymphs 35 % (Normal) Range: 14-46 Neutrophils 52 % (Normal) Range: 40-74 Platelets 161 {x10E3/uL} (Normal) Range: 140-415 RDW 13.6 % (Normal) Range: 11.7-15.0 MCHC 34.1 g/dL (Normal) Range: 32.0-36.0 MCH 29.6 pg (Normal) Range: 27.0-34.0 MCV 87 fL (Normal) Range: 80-98 Hematocrit 41.6 % (Normal) Range: 36.0-50.0 Hemoglobin 14.2 g/dL (Normal) Range: 12.5-17.0 RBC 4.79 {x10E6/uL} (Normal) Range: 4.10-5.60 WBC 5.2 {x10E3/uL} (Normal) Range: 4.0-10.5 76-Oxz-818052:14 LIPID PANEL ([id number]) Comments: PATIENT WAS FASTINGPERFORMED BY: LabCoSt. [facility] HospitalTfzjhi7917 [facility] [id number] LDL/HDL Ratio 2.3 {ratio_units} (Normal) Range: 0.0-3.6 LDL Cholesterol Calc 90 mg/dL (Normal) Range: 0-99 VLDL Cholesterol Kylie 22 mg/dL (Normal) Range: 5-40 HDL Cholesterol 40 mg/dL (Normal) Comments: According to ATP-III Guidelines, HDL-C >59 mg/dL is considered anegative risk factor for CHD. Triglycerides 111 mg/dL (Normal) Range: 0-149 Cholesterol, Total 152 mg/dL (Normal) Range: 100-199 70-Ntp-217383:14 METABOLIC PANEL, COMPREHENSIVE Comments: PATIENT WAS FASTINGPERFORMED BY: LabCoSt. Luke's [facility] HospitalYzvmpl5292 [facility] [id number] ([id number]) ALT (SGPT) 25 [iU]/L (Normal) Range: 0-55 AST (SGOT) 23 [iU]/L (Normal) Range: 0-40 Alkaline Phosphatase, S 62 [iU]/L (Normal) Range: 25-160 Bilirubin, Total 0.7 mg/dL (Normal) Range: 0.0-1.2 A/G Ratio 1.4 (Normal) Range: 1.1-2.5 Globulin, Total 3.0 g/dL (Normal) Range: 1.5-4.5 Albumin, Serum 4.2 g/dL (Normal) Range: 3.5-4.8 Protein, Total, Serum 7.2 g/dL (Normal) Range: 6.0-8.5 Calcium, Serum 9.1 mg/dL (Normal) Range: 8.6-10.2 Carbon Dioxide, Total 26 mmol/L (Normal) Range: 20-32 Chloride, Serum 101 mmol/L (Normal) Range: 97-108 Potassium, Serum 3.8 mmol/L (Normal) Range: 3.5-5.2 Sodium, Serum 140 mmol/L (Normal) Range: 135-145 BUN/Creatinine Ratio 15 (Normal) Range: 10-22 eGFR If Africn Am 87 mL/min/1.73 (Normal) Comments: Note: A persistent eGFR <60 mL/min/1.73 m2 (3 months or more) mayindicate chronic kidney disease. An eGFR >59 mL/min/1.73 m2 with anelevated urine protein also may indicate chronic kidney disease.Calculated using CKD-EPI formula. eGFR If NonAfricn Am 75 mL/min/1.73 (Normal) Creatinine, Serum 0.98 mg/dL (Normal) Range: 0.76-1.27 BUN 15 mg/dL (Normal) Range: 8-27 Glucose, Serum 97 mg/dL (Normal) Range: 65-99 24-Esx-570008:14 MICROALBUMIN: CREATININE RATIO Comments: PATIENT WAS FASTINGPERFORMED BY: [facility] [id number] ([id number]) AND (79112) Microalb/Creat Ratio 16.7 {mg/g_creat} (Normal) Range: 0.0-30.0 Microalbumin, Urine 17.9 ug/mL (Abnormal) Range: 0.0-17.0 Creatinine, Urine 107.4 mg/dL (Normal) Range: 22.0-328.0 04-Xgg-562912:04 URINE AMADA CULTURE-IDENTIFICATN Comments: PATIENT NOT FASTINGPERFORMED BY: [facility]ellJohn [facility]. [facility]6370 [facility] [id number] Information: [id number] ([id number]) Result 1 NG36 (Normal) Comments: No growth in 36 - 48 hours. Urine Culture,Comprehensive Final report (Normal) :17 CBCD,SMEAR DIFF PLT EST SeeNote (Normal) Comments: Result: ADEQUATE RED CELL MORPH SeeNote {NORMAL} (Normal) Comments: Result: NORM C+C EOS 3 % (Normal) Range: 0-5 LYMPH 34 % (Normal) Range: 19-41 MONOCYTE 3 % (Normal) Range: 0-10 ABSOLUTE NEUT 3.4 3/uL (Normal) Range: 2.0-7.7 CELLS COUNTED 100 (Normal) SEGS 60 % (Normal) Range: 47-70 PLT 167 K/mm3 (Normal) Range: 150-450 MCHC 34.6 g/dL (Normal) Range: 32-36 RDW 13.0 % (Normal) Range: 11.6-14.6 MCH 31.1 pg (Normal) Range: 27.0-32.0 MCV 89.9 fL (Normal) Range: 80-94 HCT 43.8 % (Normal) Range: 40-54 HGB 15.1 g/dL (Normal) Range: 14.0-18.0 RBC 4.87 {M/mm3} (Normal) Range: 4.6-6.2 WBC 6.0 K/mm3 (Normal) Range: 4.4-11.0 :17 COMP METABOLIC GAP 8 (Normal) Range: 5-15 CL 98 mmol/L (Normal) Range: 98-107 CO2 30.0 mmol/L (Normal) Range: 21.0-32.0 K 3.6 mmol/L (Normal) Range: 3.5-5.1 NA 136 mmol/L (Normal) Range: 136-145 T BILI 0.70 mg/dL (Normal) Range: 0.00-1.00 ALK P 55 U/L (Normal) Range: 50-136 ALT 33 U/L (Normal) Range: 12-78 AST 18 U/L (Normal) Range: 15-37 A/G 1.0 {RATIO} (Normal) Range: 0.9-2.4 CA 9.4 mg/dL (Normal) Range: 8.5-10.1 GLOB 3.9 g/dL (Normal) Range: 2.7-4.2 ALB 3.9 g/dL (Normal) Range: 3.4-5.0 BUN/CRE 16.0 {RATIO} (Normal) Range: 10-20 T PROT 7.8 g/dL (Normal) Range: 6.4-8.2 BUN 16 mg/dL (Normal) Range: 7-18 CREAT,SERUM 1.0 mg/dL (Normal) Range: 0.8-1.3 GLU 99 mg/dL (Normal) Range: 70-110 :17 LIPID VLDL 35 mg/dL (Normal) Range: 5-40 HDL 32 mg/dL (Abnormal) Comments: Reference Range HDL <40 mg/dL Low HDL Cholesterol HDL >or= 60 mg/dL High HDL Cholesterol LDL 63 mg/dL (Normal) Range: 0-130 CHOL 130 mg/dL (Normal) Comments: <200 mg/dL Desirable 200-240 mg/dL Borderline >240 mg/dL High Risk TRIG 173 mg/dL (Normal) Comments: Serum Triglycerides Reference Interval Normal <150 mg/dL Borderline high 150 - 199 mg/dL High 200 - 499 mg/dL Very High > or = 500 mg/dL :17 MICROALB:CRE UR MALB:CREAT 5.3 {mg/g_CRE} (Normal) MICROALBUMIN,UR 9.2 mg/L (Normal) UR CREAT 171.8 mg/dL (Normal) :18 BMP BUN/CRE 16.0 {RATIO} (Normal) Range: 10-20 CA 9.2 mg/dL (Normal) Range: 8.5-10.1 CL 100 mmol/L (Normal) Range: 98-107 CO2 32.0 mmol/L (Normal) Range: 21.0-32.0 GAP 11 (Normal) Range: 5-15 K 3.7 mmol/L (Normal) Range: 3.5-5.1 NA 143 mmol/L (Normal) Range: 136-145 BUN 16 mg/dL (Normal) Range: 7-18 CREAT,SERUM 1.0 mg/dL (Normal) Range: 0.8-1.3 GLU 95 mg/dL (Normal) Range: 70-110 :01 POST VOID RESIDUAL BLADDER Radiology Report See Note (Normal) Comments: Exam Number: [id number] LINICAL:The patient is a 75-year-old man with urinary urge incontinence. BLADDER ULTRASOUND TECHNIQUE:Images of the urinary bladder were obtained before and after voiding and the volume was calculated. COMPARISON:None. FINDINGS:Normally distended urinary bladder containing 126.2 cc. Normal bladder wall with no focal or diffuse wall thickening or mass. No bladder calculi or intra cystic masses. Mildly increased post void at 49.3 cc. Normal pericystic structures with no pelvic masses or free fluid. IMPRESSION: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 Reported By: PAM LAYTON M.D. 10-Lka-[id number]:41 Urinalysis, Office ([id number]) UA - BILIRUBIN Negative (Normal) UA - BLOOD Negative (Normal) UA - GLUCOSE Negative (Normal) UA - KETONES Negative mg/dL (Normal) UA - LEUKOCYTE ESTERASE Negative (Normal) UA - NITRITE Negative (Normal) UA - PH 6.5 (Normal) UA - PROTEIN Negative mg/dL (Normal) UA - SPECIFIC GRAVITY 1.015 (Normal) URINE UROBILINGN RENÉE TIMED 2 mg/dL (Normal) :27 CBCD,SMEAR DIFF PLT EST SeeNote (Normal) Comments: Result: ADEQUATE RED CELL MORPH SeeNote {NORMAL} (Normal) Comments: Result: NORM C+C ABSOLUTE NEUT 2.7 3/uL (Normal) Range: 2.0-7.7 CELLS COUNTED 100 (Normal) EOS 3 % (Normal) Range: 0-5 HCT 42.2 % (Normal) Range: 40-54 HGB 14.7 g/dL (Normal) Range: 14.0-18.0 LYMPH 35 % (Normal) Range: 19-41 MCH 30.1 pg (Normal) Range: 27.0-32.0 MCHC 34.8 g/dL (Normal) Range: 32-36 MCV 86.5 fL (Normal) Range: 80-94 MONOCYTE 3 % (Normal) Range: 0-10 PLT 158 K/mm3 (Normal) Range: 150-450 RBC 4.88 {M/mm3} (Normal) Range: 4.6-6.2 RDW 13.9 % (Normal) Range: 11.6-14.6 SEGS 59 % (Normal) Range: 47-70 WBC 4.7 K/mm3 (Normal) Range: 4.4-11.0 :27 COMP METABOLIC CL 102 mmol/L (Normal) Range: 98-107 CO2 31.0 mmol/L (Normal) Range: 21.0-32.0 GAP 5 (Normal) Range: 5-15 A/G 0.9 {RATIO} (Normal) Range: 0.9-2.4 ALB 3.6 g/dL (Normal) Range: 3.4-5.0 ALK P 69 U/L (Normal) Range: 50-136 ALT 32 U/L (Normal) Range: 12-78 AST 14 U/L (Abnormal) Range: 15-37 BUN/CRE 14.0 {RATIO} (Normal) Range: 10-20 CA 9.1 mg/dL (Normal) Range: 8.5-10.1 GLOB 4.0 g/dL (Normal) Range: 2.7-4.2 K 4.3 mmol/L (Normal) Range: 3.5-5.1 NA 138 mmol/L (Normal) Range: 136-145 T BILI 0.70 mg/dL (Normal) Range: 0.00-1.00 T PROT 7.6 g/dL (Normal) Range: 6.4-8.2 BUN 14 mg/dL (Normal) Range: 7-18 CREAT,SERUM 1.0 mg/dL (Normal) Range: 0.8-1.3 GLU 97 mg/dL (Normal) Range: 70-110 :27 LIPID HDL 33 mg/dL (Abnormal) Comments: Reference RangeHDL <40 mg/dL Low HDL CholesterolHDL >or= 60 mg/dL High HDL Cholesterol LDL 56 mg/dL (Normal) Range: 0-130 TRIG 117 mg/dL (Normal) Comments: Serum Triglycerides Reference IntervalNormal <150 mg/dLBorderline high 150 - 199 mg/dLHigh 200 - 499 mg/ dLVery High > or = 500 mg/dL VLDL 23 mg/dL (Normal) Range: 5-40 CHOL 112 mg/dL (Normal) Comments: <200 mg/dL Hreduiqyz406-883 mg/dL Borderline>240 mg/dL High Risk :27 VIT D,25 67156 40.0 ng/mL (Normal) Range: 32.0-100.0 Comments: Recent studies consider the lower limit of 32.0 ng/mL to candace threshold for optimal health.Syed PETIT. J Nutr. 2004;135(2):317-22.Performed at: [facility] [place] [address]Lab Director: Shawanda Beatty MD, Phone: [phone] :[phone] C-REACTIVE PROT 7.78 mg/L (Abnormal) Range: 0.0-3.0 Comments: C-Reactive Protein (CRP) provides useful information for thediagnosis, therapy and monitoring of inflammatory processesand associated diseases. For the evaluation of Relative Riskfor Cardiovascular Dise ase, a High Sensitivity CRP (HSCRP)should be ordered. :47 CBCD,SMEAR DIFF BASOPHIL 1 % (Normal) Range: 0-1 PLT EST SeeNote (Normal) Comments: Result: ADEQUATE RED CELL MORPH SeeNote {NORMAL} (Normal) Comments: Result: NORM C+C ABSOLUTE NEUT 3.4 3/uL (Normal) Range: 2.0-7.7 CELLS COUNTED 100 (Normal) EOS 4 % (Normal) Range: 0-5 HCT 39.5 % (Abnormal) Range: 40-54 HGB 13.5 g/dL (Abnormal) Range: 14.0-18.0 LYMPH 28 % (Normal) Range: 19-41 MCH 29.5 pg (Normal) Range: 27.0-32.0 MCHC 34.1 g/dL (Normal) Range: 32-36 MCV 86.5 fL (Normal) Range: 80-94 MONOCYTE 6 % (Normal) Range: 0-10 PLT 184 K/mm3 (Normal) Range: 150-450 RDW 12.5 % (Normal) Range: 11.6-14.6 SEGS 61 % (Normal) Range: 47-70 RBC 4.57 {M/mm3} (Abnormal) Range: 4.6-6.2 WBC 5.6 K/mm3 (Normal) Range: 4.4-11.0 :47 ESR SED RATE 27 mm/h (Abnormal) Range: 0-20 :45 ABDOMEN/PELVIS WITH CONTRAST Radiology Report See Note (Normal) Comments: Exam Number: [id number] CLINICAL:Left lower quadrant pain. CT ABDOMEN AND PELVIS WITH CONTRAST TECHNIQUE:Transaxial images were obtained from the dome of the diaphragm tothe symphysis pubis with oral co ntrast. 80 ml of Isovue-300contrast was administered intravenously. COMPARISON:None. FINDINGS:The visualized lung bases are unremarkable. Normal enhanced liver. The gallbladder has been removed. Normal enhanced spleen. Normal pancreas. Normal bilateral adrenal glands. Normal size of the right kidney. Normal excretion of contrastmaterial of the right kidney. There is a simple 3.2 cm cyst in theupper pole, a simple 1.7 cm cyst in the mid kidney and a 5 mm simplecyst in the lower pole and also in the lower pole a 15-mm simplecyst. There is no right renal mass. There are no right renalcalculi. There is no right hydronephrosis. Normal visualized rightureter. Normal size of the left kidney. Normal excretion of contrastmaterial of the left kidney. There is a 19 mm simple cyst in the midkidney and a 5 mm simple cyst in the inferior pole. There is noleft renal mass. There are no left renal calculi. There is no lefthydronephrosis. Normal visualized left ureter. Normal visualized stomach. Normal small intestine. There aremultiple colonic diverticula consistent with diverticulosis. The region of the appendix is normal. Normal mesentery and peritoneum. There is no free fluid in the abdomen. Th ere is no free air in theabdomen. Normal retroperitoneum. There is diffuse atherosclerotic calcification of the abdominalaorta. Normal visualized pelvic arteries. Normal inferior venacava. Normal opa cified urinary bladder. There is no pelvic mass lesion. There is no pelvic fluid. There isno pelvic lymphadenopathy. Normal abdominal wall. There are diffuse degenerative changes ofthe visualized lum bar spine. IMPRESSION:Bilateral simple renal cysts. Diverticulosis. Atherosclerosis. Status post cholecystectomy. Reported By: LUZMARIA ROWE M.D. 01-Aug-20098:33 Metabolic Panel, Comments: PATIENT WAS FASTINGPERFORMED BY: LabCoSt. Luke's [facility] HospitalRnihiy6186 [facility] [id number] Information: [id number] Comprehensive (19339) ALT (SGPT) 24 [iU]/L (Normal) Range: 0-55 Alkaline Phosphatase, S 60 [iU]/L (Normal) Range: 25-160 AST (SGOT) 25 [iU]/L (Normal) Range: 0-40 A/G Ratio 1.5 (Normal) Range: 1.1-2.5 Albumin, Serum 4.2 g/dL (Normal) Range: 3.5-4.8 Bilirubin, Total 0.6 mg/dL (Normal) Range: 0.1-1.2 Globulin, Total 2.8 g/dL (Normal) Range: 1.5-4.5 Calcium, Serum 9.1 mg/dL (Normal) Range: 8.6-10.2 Carbon Dioxide, Total 26 mmol/L (Normal) Range: 20-32 Chloride, Serum 104 mmol/L (Normal) Range: 97-108 Protein, Total, Serum 7.0 g/dL (Normal) Range: 6.0-8.5 Potassium, Serum 3.8 mmol/L (Normal) Range: 3.5-5.2 BUN/Creatinine Ratio 16 (Normal) Range: 8-27 eGFR AfricanAmerican >59 mL/min/1.73 Comments: Note: Persistent reduction for 3 months or more in an eGFR<60 mL/min/1.73 m2 defines CKD. Patients with eGFR values>/=60 mL/min/1.73 m2 may also have CKD if evidence of persistentproteinuria is (Normal) present. Additional information may be found [email or web address]. Sodium, Serum 141 mmol/L (Normal) Range: 135-145 BUN 17 mg/dL (Normal) Range: 5-26 Creatinine, Serum 1.06 mg/dL (Normal) Range: 0.76-1.27 eGFR >59 mL/min/1.73 (Normal) Glucose, Serum 98 mg/dL (Normal) Range: 65-99 :33 Lipid Panel ([id number]) Comments: PATIENT WAS FASTINGPERFORMED BY: [facility] [id number] HDL Cholesterol 37 mg/dL (Abnormal) Comments: According to ATP-III Guidelines, HDL-C >59 mg/dL is considered anegative risk factor for CHD. LDL Cholesterol Calc 66 mg/dL (Normal) Range: 0-99 LDL/HDL Ratio 1.8 {ratio_units} (Normal) Range: 0.0-3.6 Triglycerides 97 mg/dL (Normal) Range: 0-149 VLDL Cholesterol Kylie 19 mg/dL (Normal) Range: 5-40 Cholesterol, Total 122 mg/dL (Normal) Range: 100-199 :29 PSA (PROSTATE SPECIFIC Comments: PATIENT WAS FASTINGPERFORMED BY: [facility]listen6370 [facility] [id number] ANTIGEN) (V76.44) Prostate Specific Ag, 2.5 ng/mL (Normal) Range: 0.0-4.0 Serum Comments: [email or web address] ECLIA methodology..According to the [place] [employer], Serum PSA shoulddecrease and remain at undetectable levels after radicalprostatectomy. The AUA defines biochemical recurrence a s an initialPSA value 0.2 ng/mL or greater followed by a subsequent confirmatoryPSA value 0.2 ng/mL or greater.Values obtained with different assay methods or kits cannot be usedinterchangeably. Results cannot be interpreted as absolute evidenceof the presence or absence of malignant disease. :29 HEPATIC FUNCTION PANEL Comments: PATIENT WAS FASTINGPERFORMED BY: SanlorenzoSt. Luke's [facility] HospitalZnqkrr8316 [facility] [id number] Information: [id number] (09290) ALT (SGPT) 34 [iU]/L (Normal) Range: 0-55 Alkaline Phosphatase, S 74 [iU]/L (Normal) Range: 25-160 AST (SGOT) 28 [iU]/L (Normal) Range: 0-40 Bilirubin, Direct 0.16 mg/dL (Normal) Range: 0.00-0.40 Bilirubin, Total 0.7 mg/dL (Normal) Range: 0.1-1.2 Albumin, Serum 4.4 g/dL (Normal) Range: 3.5-4.8 Protein, Total, Serum 7.8 g/dL (Normal) Range: 6.0-8.5 :29 Lipid Panel (78149) Comments: PATIENT WAS FASTINGPERFORMED BY: [facility] [id number] LDL Cholesterol Calc 110 mg/dL (Abnormal) Range: 0-99 LDL/HDL Ratio 3.1 {ratio_units} (Normal) Range: 0.0-3.6 HDL Cholesterol 36 mg/dL (Abnormal) Comments: According to ATP-III Guidelines, HDL-C >59 mg/dL is considered anegative risk factor for CHD. Triglycerides 169 mg/dL (Abnormal) Range: 0-149 VLDL Cholesterol Kylie 34 mg/dL (Normal) Range: 5-40 Cholesterol, Total 180 mg/dL (Normal) Range: 100-199 :28 CBC WITH MANUAL DIFF (76212) Comments: PATIENT WAS FASTINGClinical Information: ADD [id number] PERFORMED BY: [facility]6370 [facility] [id number] Baso (Absolute) 0.0 {x10E3/uL} (Normal) Range: 0.0-0.2 Basos 0 % (Normal) Range: 0-3 Eos 2 % (Normal) Range: 0-7 Eos (Absolute) 0.1 {x10E3/uL} (Normal) Range: 0.0-0.4 Hematocrit 43.7 % (Normal) Range: 36.0-50.0 Hemoglobin 15.0 g/dL (Normal) Range: 12.5-17.0 Lymphs 33 % (Normal) Range: 14-46 Lymphs (Absolute) 1.8 {x10E3/uL} (Normal) Range: 0.7-4.5 MCH 30.6 pg (Normal) Range: 27.0-34.0 MCHC 34.3 g/dL (Normal) Range: 32.0-36.0 MCV 89 fL (Normal) Range: 80-98 Monocytes 7 % (Normal) Range: 4-13 Monocytes(Absolute) 0.4 {x10E3/uL} (Normal) Range: 0.1-1.0 Neutrophils 58 % (Normal) Range: 40-74 Neutrophils (Absolute) 3.2 {x10E3/uL} (Normal) Range: 1.8-7.8 Platelets 172 {x10E3/uL} (Normal) Range: 140-415 RBC 4.89 {x10E6/uL} (Normal) Range: 4.10-5.60 RDW 13.4 % (Normal) Range: 11.7-15.0 WBC 5.6 {x10E3/uL} (Normal) Range: 4.0-10.5 :28 MICROALBUMIN: CREATININE RATIO Comments: PATIENT WAS FASTINGPERFORMED BY: Advisor Client MatchSt. Luke's [facility] HospitalPdfaol1418 [facility] [id number] ([id number]) AND (96904) Creatinine, Urine 200.6 mg/dL (Normal) Range: 22.0-328.0 Microalb/Creat Ratio 2.1 {mg/g_creat} (Normal) Range: 0.0-30.0 Microalbumin, Urine 4.2 ug/mL (Normal) Range: 0.0-17.0 :28 METABOLIC PANEL, COMPREHENSIVE Comments: PATIENT WAS FASTINGPERFORMED BY: Advisor Client MatchSt. Luke's Warren HospitalXvfopr7797 [facility] [id number] ([id number]) A/G Ratio 1.3 (Normal) Range: 1.1-2.5 Albumin, Serum 4.3 g/dL (Normal) Range: 3.5-4.8 Alkaline Phosphatase, S 65 [iU]/L (Normal) Range: 25-160 ALT (SGPT) 22 [iU]/L (Normal) Range: 0-55 AST (SGOT) 21 [iU]/L (Normal) Range: 0-40 Bilirubin, Total 0.7 mg/dL (Normal) Range: 0.1-1.2 BUN 17 mg/dL (Normal) Range: 5-26 BUN/Creatinine Ratio 16 (Normal) Range: 8-27 Calcium, Serum 9.7 mg/dL (Normal) Range: 8.5-10.6 Carbon Dioxide, Total 26 mmol/L (Normal) Range: 20-32 Chloride, Serum 101 mmol/L (Normal) Range: 97-108 Creatinine, Serum 1.09 mg/dL (Normal) Range: 0.76-1.27 eGFR >59 mL/min/1.73 (Normal) eGFR AfricanAmerican >59 mL/min/1.73 Comments: Note: Persistent reduction for 3 months or more in an eGFR<60 mL/min/1.73 m2 defines CKD. Patients with eGFR values>/=60 mL/min/1.73 m2 may also have CKD if evidence of persistentproteinuria is (Normal) present. Additional information may be found [email or web address]. Globulin, Total 3.4 g/dL (Normal) Range: 1.5-4.5 Glucose, Serum 93 mg/dL (Normal) Range: 65-99 Potassium, Serum 3.9 mmol/L (Normal) Range: 3.5-5.2 Protein, Total, Serum 7.7 g/dL (Normal) Range: 6.0-8.5 Sodium, Serum 142 mmol/L (Normal) Range: 135-145 :28 LIPID PANEL (15100) Comments: 02-03; PATIENT WAS FASTINGPERFORMED BY: [facility] [id number] Cholesterol, Total 149 mg/dL (Normal) Range: 100-199 HDL Cholesterol 34 mg/dL (Abnormal) Comments: According to ATP-III Guidelines, HDL-C >59 mg/dL is considered anegative risk factor for CHD. LDL Cholesterol Calc 84 mg/dL (Normal) Range: 0-99 LDL/HDL Ratio 2.5 {ratio_units} (Normal) Range: 0.0-3.6 Triglycerides 154 mg/dL (Abnormal) Range: 0-149 VLDL Cholesterol Kylie 31 mg/dL (Normal) Range: 5-40 :28 Metabolic Panel, Comprehensive Comments: PATIENT WAS FASTINGClinical Information: ADD DRAW FEE [id number] ADD J [id number] PERFORMED BY: [facility] [id number] ([id number]) A/G Ratio 1.3 (Normal) Range: 1.1-2.5 Albumin, Serum 4.2 g/dL (Normal) Range: 3.5-4.8 Alkaline Phosphatase, S 69 [iU]/L (Normal) Range: 25-160 ALT (SGPT) 24 [iU]/L (Normal) Range: 0-55 AST (SGOT) 22 [iU]/L (Normal) Range: 0-40 Bilirubin, Total 0.6 mg/dL (Normal) Range: 0.1-1.2 BUN 13 mg/dL (Normal) Range: 5-26 BUN/Creatinine Ratio 11 (Normal) Range: 8-27 Calcium, Serum 9.6 mg/dL (Normal) Range: 8.5-10.6 Carbon Dioxide, Total 27 mmol/L (Normal) Range: 20-32 Chloride, Serum 100 mmol/L (Normal) Range: 97-108 Creatinine, Serum 1.19 mg/dL (Normal) Range: 0.76-1.27 Globulin, Total 3.3 g/dL (Normal) Range: 1.5-4.5 Glom Filt Rate, Est >59 mL/min/1.73 (Normal) Glucose, Serum 98 mg/dL (Normal) Range: 65-99 If -[place] Citizen >59 mL/min/1.73 Comments: Note: Persistent reduction for 3 months or more in an eGFR<60 mL/min/1.73 m2 defines CKD. Patients with eGFR values>/=60 mL/min/1.73 m2 may also have CKD if evidence of persistentproteinur ia is (Normal) present. Additional information may be found [email or web address]. Potassium, Serum 4.0 mmol/L (Normal) Range: 3.5-5.2 Protein, Total, Serum 7.5 g/dL (Normal) Range: 6.0-8.5 Sodium, Serum 141 mmol/L (Normal) Range: 135-145 04-Jul-20088:28 Lipid Panel ([id number]) Comments: in three months (approximately); PATIENT WAS FASTINGPERFORMED BY: [facility]St[id number] [id number] Cholesterol, Total 139 mg/dL (Normal) Range: 100-199 HDL Cholesterol 35 mg/dL (Abnormal) Comments: According to ATP-III Guidelines, HDL-C >59 mg/dL is considered anegative risk factor for CHD. LDL Cholesterol Calc 74 mg/dL (Normal) Range: 0-99 LDL/HDL Ratio 2.1 {ratio_units} (Normal) Range: 0.0-3.6 Triglycerides 148 mg/dL (Normal) Range: 0-149 VLDL Cholesterol Kylie 30 mg/dL (Normal) Range: 5-40 :19 PSA (PROSTATE SPECIFIC Comments: PATIENT WAS FASTINGPERFORMED BY: [facility] [id number] ANTIGEN) (V76.44) Prostate Specific Ag, Serum 1.0 ng/mL (Normal) Range: 0.0-4.0 Comments: Material WrldIA methodology. .According to the [place] [employer], PSA should beundetectable after radical prostatectomy. A PSA of less than0.5 ng/mL (or undetectable) is not likely to be associated withdisease recurrence within five years of treatment.Values obtained with different assay methods or kits cannot be usedinterchang eably. Results cannot be interpreted as absolute evidenceof the presence or absence of malignant disease. :19 CALCIFIDIOL (16246) VIT D 25 Comments: PATIENT WAS FASTINGPERFORMED BY: [employer] SystemsNov[facility] [id number] Vitamin D, 25-Hydroxy 31.1 ng/mL (Abnormal) Range: 32.0-100.0 Comments: Recent studies consider the lower limit of 32.0 ng/mL to be athreshold for optimal health.Syed PETIT. J Nutr. 2004;135(2):317-22. 75-Tbl-35953:19 C-Reactive Protein (99104) Comments: PATIENT WAS FASTINGPERFORMED BY: [id number] [id number] C-Reactive Protein, Quant 8.2 mg/L (Abnormal) Range: 0.0-4.9 14-Yto-82656:19 TSH (89091) Comments: PATIENT WAS FASTINGPERFORMED BY: [id number] [employer] [facility] [id number] TSH 2.354 {uIU/mL} (Normal) Range: 0.450-4.500 :19 MICROALBUMIN: CREATININE RATIO Comments: PATIENT WAS FASTINGPERFORMED BY: [facility] [id number] ([id number]) AND (07050) Microalbum.,U,Random 4.3 ug/mL (Normal) Range: 0.0-17.0 :19 METABOLIC PANEL, COMPREHENSIVE Comments: PATIENT WAS FASTINGPERFORMED BY: [facility] [id number] (80608) A/G Ratio 1.2 (Normal) Range: 1.1-2.5 Albumin, Serum 4.3 g/dL (Normal) Range: 3.5-4.8 Alkaline Phosphatase, S 68 [iU]/L (Normal) Range: 25-160 ALT (SGPT) 28 [iU]/L (Normal) Range: 0-55 AST (SGOT) 20 [iU]/L (Normal) Range: 0-40 Bilirubin, Total 0.5 mg/dL (Normal) Range: 0.1-1.2 BUN 14 mg/dL (Normal) Range: 5-26 BUN/Creatinine Ratio 13 (Normal) Range: 8-27 Calcium, Serum 10.1 mg/dL (Normal) Range: 8.5-10.6 Carbon Dioxide, Total 26 mmol/L (Normal) Range: 20-32 Chloride, Serum 100 mmol/L (Normal) Range: 97-108 Creatinine, Serum 1.10 mg/dL (Normal) Range: 0.76-1.27 Globulin, Total 3.5 g/dL (Normal) Range: 1.5-4.5 Glom Filt Rate, Est >59 mL/min/1.73 (Normal) Glucose, Serum 97 mg/dL (Normal) Range: 65-99 If -[place] Citizen >59 mL/min/1.73 Comments: Note: Persistent reduction for 3 months or more in an eGFR<60 mL/min/1.73 m2 defines CKD. Patients with eGFR values>/=60 mL/min/1.73 m2 may also have CKD if evidence of persistentproteinur ia is (Normal) present. Additional information may be found [email or web address]. Potassium, Serum 4.3 mmol/L (Normal) Range: 3.5-5.2 Protein, Total, Serum 7.8 g/dL (Normal) Range: 6.0-8.5 Sodium, Serum 143 mmol/L (Normal) Range: 135-145 :19 CBC WITH MANUAL DIFF (86218) Comments: PATIENT WAS FASTINGClinical Information: ADD DRAW FEE [id number] ADD J 39530 PERFORMED BY: [facility]CoSt[facility] HospitalAhckfn[facility] [id number] Baso (Absolute) 0.0 {x10E3/uL} (Normal) Range: 0.0-0.2 Basos 0 % (Normal) Range: 0-3 Eos 2 % (Normal) Range: 0-7 Eos (Absolute) 0.1 {x10E3/uL} (Normal) Range: 0.0-0.4 Hematocrit 43.3 % (Normal) Range: 36.0-50.0 Hemoglobin 14.9 g/dL (Normal) Range: 12.5-17.0 Lymphs 31 % (Normal) Range: 14-46 Lymphs (Absolute) 1.7 {x10E3/uL} (Normal) Range: 0.7-4.5 MCH 30.2 pg (Normal) Range: 27.0-34.0 MCHC 34.3 g/dL (Normal) Range: 32.0-36.0 MCV 88 fL (Normal) Range: 80-98 Monocytes 7 % (Normal) Range: 4-13 Monocytes(Absolute) 0.4 {x10E3/uL} (Normal) Range: 0.1-1.0 Neutrophils 60 % (Normal) Range: 40-74 Neutrophils (Absolute) 3.3 {x10E3/uL} (Normal) Range: 1.8-7.8 Platelets 222 {x10E3/uL} (Normal) Range: 140-415 RBC 4.93 {x10E6/uL} (Normal) Range: 4.10-5.60 RDW 13.4 % (Normal) Range: 11.7-15.0 WBC 5.5 {x10E3/uL} (Normal) Range: 4.0-10.5 59-Scr-59478:19 LIPID PANEL (31058) Comments: PATIENT WAS FASTINGPERFORMED BY: ADRIANA [facility] [id number] Cholesterol, Total 161 mg/dL (Normal) Range: 100-199 HDL Cholesterol 36 mg/dL (Abnormal) Comments: According to ATP-III Guidelines, HDL-C >59 mg/dL is considered anegative risk factor for CHD. LDL Cholesterol Calc 90 mg/dL (Normal) Range: 0-99 LDL/HDL Ratio 2.5 {ratio_units} (Normal) Range: 0.0-3.6 Triglycerides 174 mg/dL (Abnormal) Range: 0-149 VLDL Cholesterol Kylie 35 mg/dL (Normal) Range: 5-40 :44 Urinalysis, Office (01504) UA - BILIRUBIN Negative (Normal) UA - BLOOD Negative (Normal) UA - GLUCOSE Negative (Normal) UA - KETONES Negative mg/dL (Normal) UA - LEUKOCYTE ESTERASE Negative (Normal) UA - NITRITE Negative (Normal) UA - PH 7.0 (Normal) UA - PROTEIN Negative mg/dL (Normal) UA - SPECIFIC GRAVITY 1.015 (Normal) URINE UROBILINGN RENÉE TIMED 2 mg/dL (Normal) Plan of Care Name Dates Details Instructions Diverticulitis : Eprescribed prescriptions (G8553) Indication: Diverticulitis Pharyngitis, acute : Sore throat: diagnosis and treatment Indication: Pharyngitis, acute Pharyngitis, acute : Eprescribed prescriptions (G8553) Indication: Pharyngitis, acute Abdominal pain, acute, right upper quadrant (Renamed from Acute abdominal pain in right upper quadrant) : Abdominal Pain: abdominal pain Indication: Abdominal pain, acute, right upper quadrant (Renamed from Acute abdominal pain in right upper quadrant) Abdominal pain, acute, right upper quadrant (Renamed from Acute abdominal pain in right upper quadrant) : Eprescribed prescriptions (G8553) Indication: Abdominal pain, acute, right upper quadrant (Renamed from Acute abdominal pain in right upper quadrant) Hypertension, benign : Eprescribed prescriptions (G8553) Indication: Hypertension, benign Vertigo : Eprescribed prescriptions (G8553) Indication: Vertigo Mixed hyperlipidemia : Eprescribed prescriptions (G8553) Indication: Mixed hyperlipidemia Vertigo : Dizziness *: vertigo Indication: Vertigo Vertigo : Eprescribed prescriptions (G8553) Indication: Vertigo Other anxiety states : Anxiety: anxiety Indication: Other anxiety states Other anxiety states : Eprescribed prescriptions (G8553) Indication: Other anxiety states Impaired fasting glucose : Eprescribed prescriptions (G8553) Indication: Impaired fasting glucose Impaired fasting glucose : Diabetes and Exercise: Preventing Low Blood Sugar: blood sugar Indication: Impaired fasting glucose Impaired fasting glucose : Eprescribed prescriptions (G8553) Indication: Impaired fasting glucose Nasal congestion : Follow up if no improvement or if symptoms worsen Indication: Nasal congestion Other specified viral infection, in conditions classified elsewhere and of unspecified site : Follow up if no improvement or if symptoms worsen Indication: Other specified viral infection, in conditions classified elsewhere and of unspecified site Other specified viral infection, in conditions classified elsewhere and of unspecified site : *URI Symptoms Indication: Other specified viral infection, in conditions classified elsewhere and of unspecified site Other specified viral infection, in conditions classified elsewhere and of unspecified site : *URI Treatment Indication: Other specified viral infection, in conditions classified elsewhere and of unspecified site Coronary artery disease : Coronary Artery Disease *: blood vessels Indication: Coronary artery disease Hypertension : High Blood Pressure (Essential Hypertension) *: cardiovascular health Indication: Hypertension Hypertension : High Blood Pressure (Essential Hypertension) *: cardiovascular health Indication: Hypertension Hypertension : Follow up in 1 week Indication: Hypertension Hypertension, benign : High Blood Pressure (Essential Hypertension) *: cardiovascular health Indication: Hypertension, benign Abdominal pain, acute, right lower quadrant : Follow up in 2 days Indication: Abdominal pain, acute, right lower quadrant Hypertension, benign : Follow up after lab work completed Indication: Hypertension, benign Hypertension, benign : Follow up in 3 months Indication: Hypertension, benign Hypertension, benign : High Blood Pressure (Essential Hypertension) *: cardiovascular health Indication: Hypertension, benign Headache : Tension Headache *: neurologic health Indication: Headache Forearm : Follow up in 2 weeks Indication: Forearm Pharyngitis, acute : Follow up in 1 week Indication: Pharyngitis, acute Abdominal pain, acute, left lower quadrant : *Abd Pain Red Flags Indication: Abdominal pain, acute, left lower quadrant 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 Indication: PROSTATITIS NOS PROSTATITIS NOS : Reviewed Lab Indication: PROSTATITIS NOS PROSTATITIS NOS : Reviewed Diagnostic Tests Indication: PROSTATITIS NOS Bronchitis : *URI Treatment Indication: Bronchitis Bronchitis : URI Symptoms Indication: Bronchitis Neoplasm of uncertain behavior of skin : Shave Biopsy with Epi Indication: Neoplasm of uncertain behavior of skin Shoulder pain : Shoulder Injection Indication: Shoulder pain Planned Observations CALCIFIDIOL (47588) VIT D 25Indication: Vitamin D deficiency, unspecified On: 24-Apr-2018 Request URINALYSIS, W/ MICRO (08841)Indication: Hypertension, benign On: 24-Apr-2018 Request LIPOPROTEIN, BLD, BY NMR (23130)Indication: Mixed hyperlipidemia On: 68-Atv-486313:08 Request METABOLIC PANEL, COMPREHENSIVE (16019)Indication: Hypertension, benign On: 24-Rek-411925:08 Request CALCIFIDIOL (51311) VIT D 25Indication: Vitamin D deficiency, unspecified On: 11-Lzm-115237:08 Request URINALYSIS, W/ MICRO (95708)Indication: Hypertension, benign On: 5-Qeg-893420:21 Request SED RATE ERYTHROCYTE (27531)Indication: Diverticulitis On: :31 Request Comments: stat METABOLIC PANEL, COMPREHENSIVE (13126)Indication: Diverticulitis On: :31 Request Comments: stat CBC W/AUTO DIFF WBC (73664)Indication: Diverticulitis On: :31 Request Comments: stat Metabolic Panel, Basic (21293)Indication: Hypertension, benign On: 73-Log-990255:24 Request Comments: recheck in 2 weeks Sed Rate Erythrocyte (33508)Indication: Elevated vitamin B12 level On: 51-Cbf-791489:23 Request CBC, Platelets & Auto Diff (23954)Indication: Abdominal pain, acute, right upper quadrant (Renamed from Acute abdominal pain in right upper quadrant) On: 99-Kut-005393:54 Request Metabolic Panel, Comprehensive (62066)Indication: Abdominal pain, acute, right upper quadrant (Renamed from Acute abdominal pain in right upper quadrant) On: 10-Wgr-244958:54 Request Lipase (40212)Indication: Abdominal pain, acute, right upper quadrant (Renamed from Acute abdominal pain in right upper quadrant) On: 03-Lyp-757279:53 Request Amylase (02632)Indication: Abdominal pain, acute, right upper quadrant (Renamed from Acute abdominal pain in right upper quadrant) On: 81-Xoe-168184:53 Request Sed Rate Erythrocyte (06872)Indication: Abdominal pain, acute, right lower quadrant On: :12 Request CBC (Auto) (43511)Indication: Abdominal pain, acute, right lower quadrant On: :12 Request Metabolic Panel, Comprehensive (50929)Indication: Abdominal pain, acute, right lower quadrant On: :12 Request PSA (PROSTATE SPECIFIC ANTIGEN) (V76.44)Indication: Encounter for well adult exam with abnormal findings On: 91-Grg-338866:49 Request CALCIFIDIOL (83865) VIT D 25Indication: Vitamin D deficiency, unspecified On: :46 Request URINALYSIS, W/ MICRO (66364)Indication: Coronary artery disease On: :45 Request METABOLIC PANEL, COMPREHENSIVE (86595)Indication: Coronary artery disease On: :45 Request LIPID PANEL (98416)Indication: Coronary artery disease On: :45 Request CBC with auto diff (36799)Indication: Coronary artery disease On: :45 Request CBC (Auto) (84960)Indication: Hypertension, benign On: 11-Iec-283703:03 Request Comments: citrate tube Lipid Panel (51711)Indication: Mixed hyperlipidemia On: : Request Metabolic Panel, Comprehensive (82418)Indication: Hypertension, benign On: 89-Yuq-125284:02 Request CALCIFEDIOL (89085)Indication: Vitamin D deficiency, unspecified On: 18-Sex-663540: Request TSH (14579)Indication: Other anxiety states On: 64-Ncy-171581:00 Request MICROALBUMIN: CREATININE RATIO (80377) AND (26778)Indication: Hypertension On: 82-Rpy-270491:00 Request METABOLIC PANEL, COMPREHENSIVE (23251)Indication: Hypertension On: 35-Tnb-497544: Request LIPID PANEL (08827)Indication: Hypertension On: 86-Pgf-742073: Request CBC WITH MANUAL DIFF (56881)Indication: Hypertension On: 68-Hxn-434278:00 Request AMADA CULTURE-OTHER (17800)Indication: Forearm On: 02-Oct-20118:59 Request OVA & PARASITE DIR SMEAR (40227)Indication: Diarrhea On: 80-Mdn-976990:01 Request C.Difficile, Stool (46706)Indication: Diarrhea On: :01 Request LEUKOCYTE COUNT, FECAL (50773)Indication: Diarrhea On: : Request AMADA CULTURE-STOOL (67788)Indication: Diarrhea On: 86-Nfh-170178:01 Request METABOLIC PANEL, BASIC (23442)Indication: Hypertension, benign On: :05 Request Urinalysis, Office (92073)Indication: Urinary frequency On: 88-Aly-764209:24 Request C-REACTIVE PROTEIN (67343)Indication: Abdominal pain, acute, left lower quadrant On: 15-Dtt-214386:10 Request SED RATE ERYTHROCYTE (04696)Indication: Abdominal pain, acute, left lower quadrant On: 62-Seb-208077:10 Request CBC WITH MANUAL DIFF (23311)Indication: Abdominal pain, acute, left lower quadrant On: 04-Djv-811004:09 Request CALCIFIDIOL (70848) VIT D 25Indication: Vitamin D deficiency, unspecified On: 07-Dwy-16777:48 Request METABOLIC PANEL, COMPREHENSIVE (37045)Indication: Hypertension, benign On: :48 Request LIPID PANEL (36604)Indication: Hypertension, benign On: :48 Request CBC WITH MANUAL DIFF (17266)Indication: Hypertension, benign On: :48 Request Rapid Flu (87464 x 2)Indication: Fever On: 45-Jrt-510766:31 Request Planned Encounters Medical; [facility] 3 Month FU - On: 25-May-2018 10:45 [facility] Alberto HARRY, Samia Sanchez MD Planned Procedures US DOPPLER CAROTID BILATERAL On: 17-Mar-2018 Intent (36632)By: Samia Dominguez MD, MD, Dana M Flu Vaccine (Quadrivalent) On: 09-Feb-2018 Intent 04091Xm: Samia Dominguez MD Comments: Lot #:[id number] date: 1-48-35Ussuah given:0.5mlRoute: IMSite given:L DltdGiven by: ElaineVIS and ABN signed Fluarix Samia Dominguez MD ELECTROCARDIOGRAM, COMPLETE (ECG) On: 05-Sep-2017 Intent (83086)By: Samia Dominguez MD Comments: see scanned document of test done to see results reviewed today with patient Samia Dominguez MD Nuclear Stress Test/Stress On: 05-Sep-2017 Intent SPECT/TreadmillBy: Samia Dominguez MD, MD, Dana M Echo CompleteBy: Samia Dominguez MD On: 05-Sep-2017 Intent Samia Bond MD Radiology - KUBBy: Alberto HARRY, On: 29-Jul-2017 Intent Samia Sanchez MD Comments: call wet read US DOPPLER CAROTID BILATERAL On: 22-Oct-2016 Intent (44590)By: Samia Dominguez MD, MD, Dana M Radiology - Lumbar SpineBy: On: 24-Jun-2016 Intent Samia Dominguez MD, MD, Dana M CT - Abdomen & Pelvis (IV On: 24-Jun-2016 Intent Contrast Needed)By: Alberto HARRY, Comments: kidney stone protocol. hx of heptomegaly. Samia Sanchez MD Flu Vaccine (Quadrivalent) On: 22-Jan-2016 Intent 07228Ia: Samia Dominguez MD Comments: Lot #:[id number] date:9-77-21Ekwqrh given:0.5mlRoute: IMSite given:L DltdGiven by: ElaineVIS and ABN signed Fluarix Samia Dominguez MD CT - Abdomen (IV Contrast On: 06-Oct-2015 Intent Needed)By: Samia Dominguez MD Comments: attentiom pancrease Samia Dominguez MD ANGIOGRAM, CAROTID AND CEREBRAL On: 28-Jun-2015 Intent VESSELS, BILATERAL (77414)By: Comments: attention basilar artery and vertebrals Samia Dominguez MD, MD, Dana M Carotid DopplerBy: Alberto HARRY, On: 10-Jan-2015 Intent Samia Sanchez MD Flu Vaccine (Quadrivalent) On: 10-Jan-2015 Intent 85688Eg: Samia Dominguez MD Comments: lot: [id number]: 09/24/16site/route: L del/IMamt: 0.5mLVIS signed when applicableChelsjb, Samia Kumar MD ADMINISTRATION OF INFLUENZA VIRUS On: 10-Jan-2015 Intent VACCINE (G0008)By: Samia Dominguez MD, MD, Dana M CT - Abdomen & Pelvis (IV On: 08-Dec-2014 Intent Contrast Needed)By: Alberto HARRY, Comments: rule out hernia rule out ileocecal colitis Samia Sanchez MD Wax CurettesBy: Samia Dominguez MD On: 05-Jul-2014 Intent Samia Bond MD Ear Irrigation (88746)By: On: 05-Jul-2014 Intent Samia Dominguez MD, MD, Comments: Bilateral irrigationmoderate amount of light yellow wax removedtolerated well with no complaint of painwax curette GALINA oliva TDAP VACCINE >7 IM (65373)By: On: 02-Nov-2013 Intent Samia Dominguez MD, MD, Comments: Lot #:[id number] date:5-39-0364Caxftz given:1/2 cc Route:IM Site given:left deltoid Given by: mabel Villalba Eprescribed prescriptions On: 26-Jul-2013 Intent (G8553)By: Aparna Stinson CNP DXA, BONE DENSITY, AXIAL SKELETON On: 06-Jul-2013 Intent (16235)By: Samia Dominguez MD Comments: heel screen low Samia Dominguez MD Eprescribed prescriptions On: 06-Jul-2013 Intent (G8553)By: Samia Dominguez MD, MD, Dana M Eprescribed prescriptions On: 11-Mar-2013 Intent (G8553)By: Samia Dominguez MD, MD, Dana M CD[facility]-XQLV [facility]IOR[facility] On: 11-Mar-2013 Intent COUNSELING FOR OBESITY, 15 MINUTES (G0447)By: Samia Dominguez MD, MD, Dana M ADMINISTRATION OF INFLUENZA VIRUS On: 21-Jan-2012 Intent VACCINE (G0008)By: Olvin MOJICA, Comments: Lot #[id number]-L dltd, IMDose prefilled syringegiven by Rohan Hastings FLU VAC, SPLIT, >3 YEARS, On: 21-Jan-2012 Intent INTRAMUSC (59445)By: Nguyen Bah LPN CT - Abdomen & Pelvis Stone On: 31-Dec-2011 Intent ProtocolBy: Milad BROWN Aparna Lieberman Comments: stat call wet read Dr. Dominguez Eprescribed prescriptions On: 24-Dec-2011 Intent (G8553)By: Samia Dominguez MD, MD, Dana M MRA - BrainBy: ABDIEL Dutta On: 23-Dec-[address] - Spine/CervicalBy: Alberto On: 19-Dec-2011 Intent Samia HARRY MD, Dana M Comments: with or without contrast CT - Brain/Head (IV Contrast On: 16-Dec-2011 Intent Needed)By: Samia Dominguez MD, MD, Dana M FLU VAC, SPLIT, >3 YEARS, On: 18-Feb-2011 Intent INTRAMUSC (96453)By: Luzmaria, Comments: Lot #:[id number] Expiration date:mount given:0.5mlRoute: IMSite given:left deltoid Given by: Senthil MEADOWS ADMINISTRATION OF INFLUENZA VIRUS On: 18-Feb-2011 Intent VACCINE (G0008)By: ABDIEL Dutta Ultrasound - post void bladder On: 06-Feb-2010 Intent residualBy: Samia Dominguez MD, MD, Dana M ADMINISTRATION OF INFLUENZA VIRUS On: 06-Feb-2010 Intent VACCINE (G0008)By: ABDIEL Dutta FLU VAC, SPLIT, >3 YEARS, On: 06-Feb-2010 Intent INTRAMUSC (27488)By: ABDIEL Dutta CT - Abdomen & Pelvis (IV On: 21-Nov-2009 Intent Contrast Needed)By: Milvia Lundberg DO DXA, BONE DENSITY, AXIAL SKELETON On: 07-Aug-2009 Intent (09391)By: Samia Dominguez MD, MD, Dana M ADMINISTRATION OF INFLUENZA VIRUS On: 31-Jan-2009 Intent VACCINE (G0008)By: Luzmaria, Comments: Lot #:[id number] date:mount given:0.5mlRoute: IMSite given:left deltoid Given by: Rabia MEADOWS FLU VAC, SPLIT, >3 YEARS, On: 31-Jan-2009 Intent INTRAMUSC (23996)By: ABDIEL Dutta Instructions Name Dates Details Vertigo : How to access health information online Indication: Vertigo Vertigo : How to access health information online - Detail Indication: Vertigo Vertigo : Patient Instructions Indication: Vertigo BMI 31.0-31.9,adult : How to access health information online Indication: BMI 31.0-31.9,adult BMI 31.0-31.9,adult : How to access health information online - Detail Indication: BMI 31.0-31.9,adult BMI 31.0-31.9,adult : Patient Instructions Indication: BMI 31.0-31.9,adult BMI 31.0-31.9,adult : How to access health information online Indication: BMI 31.0-31.9,adult BMI 31.0-31.9,adult : How to access health information online - Detail Indication: BMI 31.0-31.9,adult BMI 31.0-31.9,adult : Patient Instructions Indication: BMI 31.0-31.9,adult Screening for prostate cancer : How to access health information online Indication: Screening for prostate cancer Screening for prostate cancer : How to access health information online - Detail Indication: Screening for prostate cancer Screening for prostate cancer : Patient Instructions Indication: Screening for prostate cancer Diverticulitis : How to access health information online Indication: Diverticulitis Diverticulitis : How to access health information online - Detail Indication: Diverticulitis Diverticulitis : Patient Instructions Indication: Diverticulitis Vertigo : How to access health information online Indication: Vertigo Vertigo : How to access health information online - Detail Indication: Vertigo Vertigo : Patient Instructions Indication: Vertigo BMI 32.0-32.9,adult : How to access health information online Indication: BMI 32.0-32.9,adult BMI 32.0-32.9,adult : How to access health information online - Detail Indication: BMI 32.0-32.9,adult BMI 32.0-32.9,adult : Patient Instructions Indication: BMI 32.0-32.9,adult BMI 32.0-32.9,adult : How to access health information online Indication: BMI 32.0-32.9,adult BMI 32.0-32.9,adult : How to access health information online - Detail Indication: BMI 32.0-32.9,adult BMI 32.0-32.9,adult : Patient Instructions Indication: BMI 32.0-32.9,adult Pharyngitis, acute : How to access health information online Indication: Pharyngitis, acute Pharyngitis, acute : How to access health information online - Detail Indication: Pharyngitis, acute Pharyngitis, acute : Patient Instructions Indication: Pharyngitis, acute BMI 32.0-32.9,adult : How to access health information online Indication: BMI 32.0-32.9,adult BMI 32.0-32.9,adult : How to access health information online - Detail Indication: BMI 32.0-32.9,adult BMI 32.0-32.9,adult : Patient Instructions Indication: BMI 32.0-32.9,adult BMI 31.0-31.9,adult : How to access health information online Indication: BMI 31.0-31.9,adult BMI 31.0-31.9,adult : How to access health information online - Detail Indication: BMI 31.0-31.9,adult BMI 31.0-31.9,adult : Patient Instructions Indication: BMI 31.0-31.9,adult Current nonsmoker (Renamed from Current non-smoker) : How to access health information online Indication: Current nonsmoker (Renamed from Current non-smoker) Current nonsmoker (Renamed from Current non-smoker) : How to access health information online - Detail Indication: Current nonsmoker (Renamed from Current non-smoker) Current nonsmoker (Renamed from Current non-smoker) : Patient Instructions Indication: Current nonsmoker (Renamed from Current non-smoker) Encounter for well adult exam with abnormal findings : How to access health information online Indication: Encounter for well adult exam with abnormal findings Encounter for well adult exam with abnormal findings : How to access health information online - Detail Indication: Encounter for well adult exam with abnormal findings Encounter for well adult exam with abnormal findings : Patient Instructions Indication: Encounter for well adult exam with abnormal findings BMI 31.0-31.9,adult : How to access health information online Indication: BMI 31.0-31.9,adult BMI 31.0-31.9,adult : How to access health information online - Detail Indication: BMI 31.0-31.9,adult BMI 31.0-31.9,adult : Patient Instructions Indication: BMI 31.0-31.9,adult Abdominal pain, acute, right upper quadrant (Renamed from Acute abdominal pain in right upper quadrant) : How to access health information online Indication: Abdominal pain, acute, right upper quadrant (Renamed from Acute abdominal pain in right upper quadrant) Abdominal pain, acute, right upper quadrant (Renamed from Acute abdominal pain in right upper quadrant) : How to access health information online - Detail Indication: Abdominal pain, acute, right upper quadrant (Renamed from Acute abdominal pain in right upper quadrant) Abdominal pain, acute, right upper quadrant (Renamed from Acute abdominal pain in right upper quadrant) : Patient Instructions Indication: Abdominal pain, acute, right upper quadrant (Renamed from Acute abdominal pain in right upper quadrant) Hypertension, benign : How to access health information online Indication: Hypertension, benign Hypertension, benign : How to access health information online - Detail Indication: Hypertension, benign Hypertension, benign : Patient Instructions Indication: Hypertension, benign Fatigue : How to access health information online Indication: Fatigue Fatigue : How to access health information online - Detail Indication: Fatigue Fatigue : Patient Instructions Indication: Fatigue Encounter for well adult exam with abnormal findings : How to access health information online Indication: Encounter for well adult exam with abnormal findings Encounter for well adult exam with abnormal findings : How to access health information online - Detail Indication: Encounter for well adult exam with abnormal findings Encounter for well adult exam with abnormal findings : Patient Instructions Indication: Encounter for well adult exam with abnormal findings Vertigo : How to access health information online Indication: Vertigo Vertigo : How to access health information online - Detail Indication: Vertigo Vertigo : Patient Instructions Indication: Vertigo Mixed hyperlipidemia : How to access health information online Indication: Mixed hyperlipidemia Mixed hyperlipidemia : How to access health information online - Detail Indication: Mixed hyperlipidemia Mixed hyperlipidemia : Patient Instructions Indication: Mixed hyperlipidemia Vertigo : How to access health information online Indication: Vertigo Vertigo : How to access health information online - Detail Indication: Vertigo Vertigo : Patient Instructions Indication: Vertigo Other anxiety states : How to access health information online Indication: Other anxiety states Other anxiety states : How to access health information online - Detail Indication: Other anxiety states Other anxiety states : Patient Instructions Indication: Other anxiety states Abdominal pain, acute, right lower quadrant : How to access health information online Indication: Abdominal pain, acute, right lower quadrant Abdominal pain, acute, right lower quadrant : How to access health information online - Detail Indication: Abdominal pain, acute, right lower quadrant Abdominal pain, acute, right lower quadrant : Patient Instructions Indication: Abdominal pain, acute, right lower quadrant Impaired fasting glucose : How to access health information online Indication: Impaired fasting glucose Impaired fasting glucose : How to access health information online - Detail Indication: Impaired fasting glucose Impaired fasting glucose : Patient Instructions Indication: Impaired fasting glucose Impaired fasting glucose : How to access health information online Indication: Impaired fasting glucose Impaired fasting glucose : How to access health information online - Detail Indication: Impaired fasting glucose Impaired fasting glucose : Patient Instructions Indication: Impaired fasting glucose Pharyngitis, acute : Patient Instructions Indication: Pharyngitis, acute Impaired fasting glucose : Patient Instructions Indication: Impaired fasting glucose BMI 32.0-32.9,adult : obesity counseling Indication: BMI 32.0-32.9,adult Coronary artery disease : Patient Instructions Indication: Coronary artery disease Hypertension : Patient Instructions Indication: Hypertension Hypertension : Patient Instructions Indication: Hypertension Hypertension, benign : Patient Instructions Indication: Hypertension, benign Hypertension, benign : Patient Instructions Indication: Hypertension, benign Advance Directives Name Dates Details Immunization Registry [place] - Effective on Effective: 06-Dec-201612/06/2016. Expiration date unspecified Encounters Office Visit On: 17-Mar-2018 15:59 Encounter Diagnosis: BMI 31.0-31.9,adult, Vertigo, Current nonsmoker (Renamed from Current non-smoker), Carotid stenosis End: 17-Mar-2018 16:49 [facility] Office Visit On: 09-Feb-2018 10:28 Encounter Reason: Follow up for chronic medical issues - The patient feels well with minor complaints, has good energy level and is sleeping well. Patient has been compliant with instructions. Current medication use: no End: 09-Feb-2018 11:12 side effects and compliant with dosing regimen. Patient sleeps 7 hours per night. Impact of disease: emotional impact-moderate. Nutrition: balanced diet and supplemental vitamins. The medical issues the patient is following up for include blood sugar issues, cardiac issues, depression, high blood pressure, high cholesterol and other (vitamin d def., tremor, ED, DDD, hx. lesion of pancreas).Encounter Diagnosis: BMI 31.0-31.9,adult, Current nonsmoker (Renamed from Current non-smoker), Impaired fasting glucose, Need for prophylactic vaccination and inoculation against influenza (Renamed from Need for immunization against influenza), Constipation, Rhinitis, chronic, Urgency of micturition, Lesion of pancreas, Obstructive sleep apnea, adult, Mild degeneration of cervical intervertebral disc, Orthostatic hypotension, Degeneration of intervertebral disc of lumbar region, Tremor, Mitral valve prolapse, Degenerative joint disease of cervical spine, Carotid stenosis, Arthritis, Spinal stenosis, multilevel, History of Clostridium difficile infection, Hypertension, benign, Depression, unspecified depression type, Fatigue, Elevated vitamin B12 level, Mixed hyperlipidemia, 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, Coronary artery disease, Abnormality of globulin, Obesity, Vitamin D deficiency, unspecified, Diarrhea, Flu-like symptoms, BMI 32.0-32.9,adult, Epididymitis, Diverticulitis [facility] Office Visit On: 08-Dec-2017 9:01 Encounter Reason: Follow up acute care visit - The patient feeling better since last seen and improving. Patient has been compliant with instructions. Current medication use: compliant with dosing regimen. Patient sleeps End: 08-Dec-2017 9:36 7 hours per night. Impact of disease: emotional impact-mild. Nutrition: balanced diet and supplemental vitamins. The medical issues the patient is following up for include other (myalgia).Encounter Diagnosis: BMI 31.0-31.9,adult, Current nonsmoker (Renamed from Current non-smoker), Fatigue, Depression, unspecified depression type, Hypertension, benign [facility] Office Visit On: 31-Oct-2017 6:51 Encounter Reason: Physical male exam - Last seen less than 1 month ago. General health: feels well with minor complaints and has decreased energy level. The patient's appetite is normal. Nutrition: normal/adequate. Safet End: 31-Oct-2017 9:15 y measures include appropriate use of safety belts and home smoke detectors. Current emotional problems include anxiety and depression. The patient's libido is decreased. Preventative measures done by jesse nunez are screening, colonoscopy (2013), screening, visual acuity (), PSA () and rectal exam ().Encounter Diagnosis: BMI 32.0-32.9,adult, Current nonsmoker (Renamed from Current non-smoker), Encounter for well adult exam with abnormal findings, Screening for prostate cancer, Degeneration of intervertebral disc of lumbar region, Thrombopenia, Mitral valve prolapse, Impaired fasting glucose, Orthostatic hypotension, Obstructive sleep apnea, adult, Esophagitis, Rhinitis, chronic, Constipation, Mixed hyperlipidemia, Lesion of pancreas, Spinal stenosis, multilevel, Urgency of micturition, Mild degeneration of cervical intervertebral disc, Arthritis, 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 The stools are described as loose and bloody (on friday). Onset wa End: 23-Oct-2017 21:39 s 4 day(s) ago. The symptoms occur intermittently. This is described as unchanged. The patient is not currently being treated for this problem. Note for Diarrhea: temp was 102.4- having crampy lower a bd pain - blood only once but yesterday multiple bms with yellow slimy- used gasx- had helped gas- no vomit- having daily seeds and nuts- and had colonoscopy 2013Encounter Diagnosis: Current nonsmoker (Renamed from Current non-smoker), BMI 32.0-32.9,adult, Diverticulitis, Diarrhea [facility] Office Visit On: 26-Sep-2017 9:18 Encounter Reason: Follow up tests - Date: (09.05.17).Encounter Diagnosis: Hypertension, benign, Fatigue, Orthostatic lightheadedness, Coronary artery disease End: 26-Sep-2017 10:27 [facility] Office Visit On: 19-Sep-2017 9:50 Encounter Diagnosis: Current nonsmoker (Renamed from Current non-smoker), BMI 32.0- 32.9,adult, Orthostatic lightheadedness, Hypertension, benign, Fatigue End: 19-Sep-2017 10:52 [facility] Office Visit On: 05-Sep-2017 10:11 Encounter Diagnosis: Orthostatic hypotension, Orthostatic lightheadedness, Coronary artery disease, Exercise intolerance, Hypertension, benign End: 05-Sep-2017 10:32 [facility] Phone Encounter On: 30-Jul-2017 11:05 Encounter Diagnosis: Degenerative joint disease of cervical spine End: 30-Jul-2017 11:08 [facility] Office Visit On: 29-Jul-2017 10:25 Encounter Reason: Annual Medicare Exam - The patient had reviewed and updated the family history, medication/s, past medical history and social history. Yes the patient did have a mini mental status exam done today. The End: 30-Jul-2017 21:03 activities of daily living the patient needs help with are none. The patient has driven in past 6 months, put area rugs through house and put handrails in bathroom. The patient has completed the followi ng preventative measures: PSA testing (08-06-16) and colonoscopy (). 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 The patient has noticed getting bored, staying at home rather t morgan doing something new or going out and lack of energy. Other providers contributing to the patient's care are rag room supervisor (Dr. Horvath) and other: ([facility]Encounter Diagnosis: BMI 32.0-32.9,adult, Current nonsmoker (Renamed from Current non-smoker), Encounter for routine history and physical exam for male, Impaired fasting glucose, Constipation, Abdominal pain (789.00), Degenerative joint disease of cervical spine, Spinal stenosis, multilevel , Mild degeneration of cervical intervertebral disc, Mixed hyperlipidemia, Lesion of pancreas, Rhinitis, chronic, Degeneration of intervertebral disc of lumbar region, Thrombopenia, Coronary artery disease, Tremor (781.0), Obstructive sleep apnea, adult, Esophagitis, Mitral valve prolapse, Hypertension, benign, Carotid stenosis, Abnormality of globulin, Depression, unspecified depression type, Elevated vitamin B12 level, 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, Obesity, Fatigue , Arthritis, Vitamin D deficiency, unspecified, Urgency of micturition, Abnormal laboratory test, Flu-like symptoms, Epididymitis [facility] Annotation/Addendum On: 25-Apr-2017 15:53 Encounter Diagnosis: Flu-like symptoms End: 25-Apr-2017 15:55 [facility] Annotation/Addendum On: 25-Apr-2017 14:54 Encounter Diagnosis: Flu-like symptoms End: 25-Apr-2017 14:56 [facility] Annotation/Addendum On: 25-Apr-2017 14:50 Encounter Diagnosis: Flu-like symptoms End: 25-Apr-2017 14:54 [facility] Office Visit On: 25-Apr-2017 9:20 Encounter Reason: Follow up for chronic medical issues - The patient feels well with minor complaints, has decreased energy level and is sleeping well. Patient has been compliant with instructions. Current medication use End: 25-Apr-2017 10:02 : no side effects, compliant with dosing regimen and considered effective by patient. Patient sleeps 7 hours per night. Impact of disease: emotional impact-mild. Nutrition: balanced diet and supplementa l vitamins. The medical issues the patient is following up for include blood sugar issues, cardiac issues, depression, high blood pressure, high cholesterol and other (DDD, SASHA, vitamin d def., tremor, ED).Encounter Diagnosis: BMI 32.0-32.9,adult, Pharyngitis, acute, Current nonsmoker (Renamed from Current non-smoker), Impaired fasting glucose, Tremor (781.0), Abnormality of globulin, Coronary artery disease, Thrombopenia, Mitral valve prolapse, Esophagitis, Obstructive sleep apnea, adult, Degeneration of intervertebral disc of lumbar region, Mild degeneration of cervical intervertebral disc, Spinal stenosis, multilevel, Degenerative joint disease of cervical spine, Rhinitis, chronic, Constipation, Lesion of pancreas, Mixed hyperlipidemia, Obesity, 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, Arthritis, Fatigue, Elevated vitamin B12 level, Carotid stenosis, Hypertension, benign, Depression, unspecified depression type, Vitamin D deficiency, unspecified, BMI 31.0-31.9,adult, BMI 38.0-38.9,adult, Cough, Urgency of micturition, Abnormal laboratory test [facility] Phone Encounter On: 17-Feb-2017 16:13 Encounter Diagnosis: Cough End: 17-Feb-2017 16:14 [facility] Phone Encounter On: 13-Feb-2017 10:41 Encounter Diagnosis: Sinusitis, chronic End: 13-Feb-2017 10:43 [facility] Office Visit On: 07-Feb-2017 10:01 Encounter Reason: Cold Symptoms - Symptoms include runny nose, postnasal drainage, scratchy throat, productive cough (yellow) and facial pressure. Onset was 4 day(s) ago. Associated symptoms do not include wheezing, shor End: 07-Feb-2017 10:30 tness of breath, nausea, vomiting, diarrhea, fever or chills. Current treatment includes non-prescription cold medication and cough suppressants.Encounter Diagnosis: Current nonsmoker (Renamed from Current non-smoker), Pharyngitis, acute [facility] Phone Encounter On: 26-Dec-2016 14:49 [facility] End: 26-Dec-2016 14:52 Office Visit On: 06-Dec-2016 14:23 Encounter Reason: Follow up acute care visit - The patient feeling better since last seen and improving. Patient has been compliant with instructions. Current medication use: no side effects, compliant with dosing regime End: 06-Dec-2016 15:24 n and considered effective by patient. Patient sleeps 7 hours per night. Impact of disease: emotional impact-mild. Nutrition: balanced diet and supplemental vitamins. The medical issues the patient is following up for include depression (anxiety). Encounter Diagnosis: BMI 32.0-32.9,adult, Current nonsmoker (Renamed from Current non-smoker), Depression, unspecified depression type, Urgency of micturition, Hypertension, benign, Vitamin D deficiency, unspecified [facility] Historical Summary On: 07-Nov-2016 14:00 Encounter Diagnosis: Carotid stenosis End: 07-Nov-2016 14:01 [facility] Office Visit On: 22-Oct-2016 8:09 Encounter Diagnosis: BMI 31.0-31.9,adult, Esophagitis, Abnormality of globulin, Mixed hyperlipidemia, Carotid stenosis, Tremor (781.0), Abdominal pain, acute, right upper quadrant (Renamed from Acute abdominal pain in right upper quadrant), End: 24-Oct-2016 5:51 Elevated vitamin B12 level, Fatigue, Mitral valve prolapse, Thrombopenia, Degeneration of intervertebral disc of lumbar region, Constipation, Spinal stenosis, multilevel, Mild degeneration of cervical intervertebral disc, Hypertension, benign, Obstructive sleep apnea, adult, Coronary artery disease, Current nonsmoker (Renamed from Current non-smoker), Rhinitis, chronic, Degenerative joint disease of cervical spine, Impaired fasting glucose, Obesity, Lesion of pancreas, Arthritis, Other anxiety states, Vitamin D deficiency, unspecified, Encounter for routine history and physical exam for male, Depression, unspecified depression type, BMI 38.0- 38.9,adult, Urgency of micturition, 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 [facility] Lab Order On: 11-Oct-2016 13:23 Encounter Diagnosis: Hypertension, benign End: 11-Oct-2016 13:25 [facility] Phone Encounter On: 04-Oct-2016 7:48 Encounter Diagnosis: Coronary artery disease, Hypertension, benign End: 04-Oct-2016 7:53 [facility] Lab Order On: 03-Oct-2016 15:58 Encounter Diagnosis: Hypertension, benign End: 03-Oct-2016 16:03 [facility] Office Visit On: 30-Sep-2016 10:52 Encounter Diagnosis: BMI 31.0-31.9,adult, Current nonsmoker (Renamed from Current non-smoker), Headache, Rhinitis, chronic, Hypertension, benign End: 30-Sep-2016 11:25 [facility] Office Visit On: 19-Jul-2016 10:48 Encounter Reason: Annual Medicare Exam - The patient had reviewed and updated the family history, medication/s, past medical history and social history. Yes the patient did have ( [employer]) a mini mental status exam do End: 19-Jul-2016 14:37 ne today. The activities of daily living the patient needs help with are none. The patient has driven in past 6 months, put area rugs through house and put handrails in bathroom, but the patient has not had fecal incontinence, had urinary incontinence, missed or ran out of medications to soon, fallen in the past 6 months, gotten lost or has a medalert necklace or bracelet. The patient has completed following preventative measures: PSA testing () and colonoscopy (). 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 The patient has noticed staying at home rather than doi ng something new or going out and lack of energy. Other providers contributing to the patient's care are rag room supervisor (Kailyn ), gastrologist (Lexi ) and other: ([facility] ).Encounter Diagnosis: Encounter for routine history and physical exam for male, Current nonsmoker (Renamed from Current non-smoker), BMI 31.0-31.9,adult, Tremor (781.0), Carotid stenosis, Mild degeneration of cervical intervertebral disc, Hypertension, benign, Coronary artery disease, Lesion of pancreas, Obstructive sleep apnea, adult, Mixed hyperlipidemia, Arthritis, Impaired fasting glucose, Degenerative joint disease of cervical spine, Chronic left-sided low back pain without sciatica, Obesity, Perleche , Inguinal hernia, left, Spinal stenosis, multilevel, Constipation, Degeneration of intervertebral disc of lumbar region, Fatigue, Abnormality of globulin, Esophagitis, Thrombopenia, Abdominal pain, acute, right upper quadrant (Renamed from Acute abdominal pain in right upper quadrant), Mitral valve prolapse, Other anxiety states, Vitamin D deficiency, unspecified, BMI 38.0-38.9,adult, Elevated vitamin B12 level [facility] Phone Encounter On: 01-Jul-2016 16:16 Encounter Diagnosis: Screening for prostate cancer End: 01-Jul-2016 16:17 [facility] Lab Order On: 28-Jun-2016 16:00 Encounter Diagnosis: Fatigue End: 28-Jun-2016 16:02 [facility] Office Visit On: 28-Jun-2016 9:56 Encounter Reason: Follow up acute care visit - The patient feeling better since last seen and improving. Patient has been compliant with instructions. Current medication use: no side effects, compliant with dosing regime End: 28-Jun-2016 10:42 n and considered effective by patient. Patient sleeps 6 hours per night. Impact of disease: emotional impact-mild. Nutrition: balanced diet and supplemental vitamins. The medical issues the patient is following up for include other (back pain ). Encounter Diagnosis: BMI 31.0-31.9,adult, Current nonsmoker (Renamed from Current non-smoker), Abdominal pain, acute, right upper quadrant (Renamed from Acute abdominal pain in right upper quadrant), Esophagitis, Constipation, Degenerative Disc Disease - Lumbar (722.52), Spinal stenosis, multilevel, Inguinal hernia, left, Abnormality of globulin [facility] Office Visit On: 24-Jun-2016 10:12 Encounter Reason: Abdominal Pain, Male - Symptoms include abdominal pain, while symptoms do not include nausea, vomiting or diarrhea. The pain is located in the right upper quadrant. The pain radiates to the right flank End: 24-Jun-2016 11:00 and back. The patient describes the pain as sharp (at times) and aching. Onset was month(s) ago. There is no known event that preceded symptom onset. The symptoms occur intermittently. The patient descr ibes this as improving. Associated symptoms do not include fever, weight loss or dysuria.Encounter Diagnosis: Current nonsmoker (Renamed from Current non- smoker), BMI 38.0-38.9,adult, Abdominal pain, acute, right upper quadrant (Renamed from Acute abdominal pain in right upper quadrant), Chronic left-sided low back pain without sciatica [facility] Office Visit On: 27-May-2016 15:25 Encounter Diagnosis: Johnny End: 27-May-2016 15:38 [facility] Office Visit On: 19-Apr-2016 9:29 Encounter Reason: Follow up for chronic medical issues - The patient feels well with no complaints, has good energy level and is sleeping well. Patient has been compliant with instructions. Current medication use: no eduarda End: 19-Apr-2016 9:53 e effects and compliant with dosing regimen. Patient sleeps 8 hours per night. Nutrition: balanced diet.Encounter Diagnosis: Hypertension, benign, Current nonsmoker (Renamed from Current non-smoker), Coronary artery disease, Mitral valve prolapse, Thrombopenia, Obesity, Impaired fasting glucose, Arthritis, Degenerative joint disease of cervical spine, Lesion of pancreas, Fatigue, Mixed hyperlipidemia, Obstructive sleep apnea, adult, Mild degeneration of cervical intervertebral disc, Carotid stenosis, Other anxiety states, Vitamin D deficiency, unspecified, Tremor (781.0) [facility] Office Visit On: 22-Jan-2016 9:49 Encounter Reason: Follow up for chronic medical issues - The patient feels well with minor complaints, has decreased energy level and is sleeping well. Patient has been compliant with instructions. Current medication use End: 22-Jan-2016 10:25 : no side effects, compliant with dosing regimen and considered effective by patient. Patient sleeps 8 hours per night. Impact of disease: emotional impact-moderate. Nutrition: balanced diet and supplem ental vitamins. The medical issues the patient is following up for include blood sugar issues, cardiac issues, depression, high blood pressure, high cholesterol and other (DDD, SASHA, hx. lesion of pancre as, overweight, impaired fasting glucose, thrombocytopenia, vitamin d def. ).Encounter Diagnosis: Fatigue, Current nonsmoker (Renamed from Current non-smoker), Need for prophylactic vaccination and inoculation against influenza (Renamed from Need for immunization against influenza), Impaired fasting glucose, Arthritis, Degenerative joint disease of cervical spine, Obesity, Coronary artery disease, Mitral valve prolapse, Hypertension, benign, Thrombopenia, Mixed hyperlipidemia, Lesion of pancreas, Mild degeneration of cervical intervertebral disc, Carotid stenosis, Obstructive sleep apnea, adult, Other anxiety states, Vitamin D deficiency, unspecified [facility] Office Visit On: 06-Oct-2015 9:27 Encounter Diagnosis: Current nonsmoker (Renamed from Current non-smoker), Obstructive sleep apnea, adult, Lesion of pancreas, Abnormal carotid ultrasound, Thrombopenia, Coronary artery disease, Mitral valve prolapse, End: 13-Oct-2015 7:09 Mild degeneration of cervical intervertebral disc, Impaired fasting glucose, Impaired sensation, Hypertension, benign, Arthritis, Mixed hyperlipidemia, Degenerative joint disease of cervical spine, Carotid stenosis, Obesity, Other anxiety states, Vitamin D deficiency, unspecified, Encounter for routine history and physical exam for male [facility] Nurse Visit (Non-[place]) On: 29-Sep-2015 9:35 [facility] End: 29-Sep-2015 9:49 Office Visit On: 14-Jul-2015 8:15 Encounter Reason: Follow up for chronic medical issues - other: (cta ).Encounter Diagnosis: Vertigo (780.4), GERD (gastroesophageal reflux disease), Mitral valve prolapse, Coronary artery disease, Impaired fasting glucose, End: 14-Jul-2015 10:14 Mild degeneration of cervical intervertebral disc, Lesion of pancreas, Current nonsmoker (Renamed from Current non-smoker), Mixed hyperlipidemia, Obstructive sleep apnea, adult, Thrombopenia, Abnormal carotid ultrasound, Impaired sensation, Degenerative joint disease of cervical spine, Carotid stenosis, Obesity, Hypertension, benign, Arthritis, Other anxiety states, Vitamin D deficiency, unspecified [facility] Phone Encounter On: 28-Jun-2015 15:12 Encounter Diagnosis: Abnormal carotid ultrasound End: 28-Jun-2015 15:17 [facility] Office Visit On: 28-Jun-2015 8:19 Encounter Reason: Follow up acute care visit - The patient feels the same and worsening (at times vertigo get worse ). Patient has been compliant with instructions. Current medication use: no side effects and compliant w End: 28-Jun-2015 9:06 ith dosing regimen. Patient sleeps 7 hours per night. Impact of disease: emotional impact-moderate. Nutrition: balanced diet and supplemental vitamins. The medical issues the patient is following up for include other (vertigo ). Note for Follow up acute care visit: patient seen [facility] and ENT, has decided not want to see neurologist Encounter Diagnosis: Mixed hyperlipidemia, Current nonsmoker (Renamed from Current non-smoker), Impaired sensation , Vertigo (780.4), Degenerative joint disease of cervical spine [facility] Office Visit On: 09-May-2015 11:41 Encounter Reason: Follow up ER - Reason for hospitalization note: (Vertigo). Patient has been compliant with instructions. Current medication use: no side effects (was not given any meds). The patient feels well with min End: 09-May-2015 13:13 or complaints, has decreased energy level and is sleeping well.Encounter Diagnosis: Vertigo (780.4), Impaired sensation [facility] Office Visit On: 10-Jan-2015 9:17 Encounter Reason: Follow up for chronic medical issues - The patient feels well with minor complaints (back pain), has decreased energy level and is sleeping well. Patient has been compliant with instructions. Current me End: 10-Jan-2015 9:56 dication use: no side effects and compliant with dosing regimen. Patient sleeps 8 hours per night. Nutrition: balanced diet. The medical issues the patient is following up for include All identified problems below., [ADDITIONAL REASON] Follow up tests - Date: (01/03/15 blood work). Encounter Diagnosis: Anxiety state, unspecified (300.00), Need for prophylactic vaccination and inoculation against influenza (Renamed from Need for immunization against influenza), Hypertension,benign(401.1), Hyperlipidemia, Mixed (272.2), Mitral Valve Prolapse (746.9), arthritis,unspecified (716.90), Obstructive sleep apnea (327.23), Obesity (278.00), Carotid Stenosis (433.10), Thrombocytopenia (287.5), Lesion of pancreas, Coronary Artery Disease (414.00), Degenerative Disc Disease - Cervical Spine (722.4), Tremor (781.0), Impaired fasting glucose (790.21), VITAMIN D DEFICIENCY, NOS (268.9), Backache, unspecified (724.5), Well Male Exam (V70.0) [facility] Office Visit On: 15-Dec-2014 10:41 Encounter Reason: Follow up tests - Diagnostic tests include CT scan. Date: (12.08.2014 LABs).Encounter Diagnosis: Abdominal Pain,RLQ (789.03), Lesion of pancreas, Coronary Artery Disease (414.00) End: 15-Dec-2014 11:25 [facility] Office Visit On: 08-Dec-2014 8:45 Encounter Diagnosis: Abdominal Pain,RLQ (789.03), Diarrhea (787.91) End: 08-Dec-2014 9:16 [facility] Office Visit On: 05-Jul-2014 10:03 Encounter Reason: Follow up tests - Date: (3)., [ADDITIONAL REASON] Follow up for chronic medical issues - The patient feels well with no complaints End: 07-Jul-2014 21:08 , has good energy level and is sleeping well. Patient has been compliant with instructions. Current medication use: no side effects and compliant with dosing regimen. Patient sleeps 8 hours per night. Nutrition: balanced diet. Encounter Diagnosis: Impaired fasting glucose (790.21), Hyperlipidemia, Mixed (272.2), Thrombocytopenia (287.5), Coronary Artery Disease (414.00), arthritis,unspecified (716.90), Carotid Stenosis (433.10), Hypertension (401.9), Obesity (278.00), Obstructive sleep apnea (327.23), Tremor (781.0), Degenerative Disc Disease - Cervical Spine (722.4), Mitral Valve Prolapse (746.9), Hypertension,benign(401.1), Anxiety state, unspecified (300.00), VITAMIN D DEFICIENCY, NOS (268.9), Well Male Exam (V70.0), CERUMEN IMPACTION (380.4) [facility] Office Visit On: 08-Mar-2014 11:52 Encounter Reason: Follow up for chronic medical issues - The patient feels well with no complaints, has good energy level and is sleeping well. Patient has been compliant with instructions. Current medication use: no eduarda End: 08-Mar-2014 12:33 e effects and compliant with dosing regimen. Patient sleeps 8 hours per night. Nutrition: balanced diet.Encounter Diagnosis: Impaired fasting glucose (790.21), Carotid Stenosis (433.10), Hypertension (401.9), Obesity (278.00), Thrombocytopenia (287.5), Tremor (781.0), Coronary Artery Disease (414.00), arthritis,unspecified (716.90), Obstructive sleep apnea (327.23), Degenerative Disc Disease - Cervical Spine (722.4), Mitral Valve Prolapse (746.9), Hyperlipidemia, Mixed (272.2), Hypertension,benign(401.1), Anxiety state, unspecified (300.00), VITAMIN D DEFICIENCY, NOS (268.9) [facility] Phone Encounter On: 15-Feb-2014 15:26 [facility] End: 15-Feb-2014 15:28 Office Visit On: 26-Nov-2013 12:31 Encounter Diagnosis: Degenerative Disc Disease - Cervical Spine (722.4), Anxiety state, unspecified (300.00) End: 06-Dec-2013 8:10 [facility] Phone Encounter On: 16-Nov-2013 13:45 Encounter Diagnosis: Degenerative Disc Disease - Cervical Spine (722.4) End: 16-Nov-2013 13:48 [facility] Office Visit On: 02-Nov-2013 10:08 Encounter Reason: Follow up for chronic medical issues - The patient feels well with minor complaints (d/c med for tremor), has good energy level and is sleeping well. Patient has been compliant with instructions. Mary End: 02-Nov-2013 10:52 t medication use: no side effects and not considered effective by patient (tremor medication). Patient sleeps 8 hours per night. Impact of disease: emotional impact-mild. Nutrition: balanced diet and guardado pplemental vitamins. The medical issues the patient is following up for include blood sugar issues, cardiac issues, high blood pressure, high cholesterol and other (anxiety, DDD, SASHA, thrombocytopenia, vitmain d def. )., [ADDITIONAL REASON] Follow up tests - Date: (10/22/13 blood work). Encounter Diagnosis: Impaired fasting glucose (790.21), Need for DTaP vaccine, Carotid Stenosis (433.10), Hyperlipidemia, Mixed (272.2), Degenerative Disc Disease - Cervical Spine (722.4), Hypertension (401.9), BMI 32.0- 32.9, ADULT (V85.32), Thrombocytopenia (287.5), Tremor (781.0), Coronary Artery Disease (414.00), arthritis,unspecified (716.90), Mitral Valve Prolapse (746.9), Nasal congestion, Obstructive sleep apnea (327.23), Hypertension,benign(401.1), Obesity (278.00), Anxiety state, unspecified (300.00), VITAMIN D DEFICIENCY, NOS (268.9), Well Male Exam (V70.0) [facility] Phone Encounter On: 03-Sep-2013 7:38 Encounter Diagnosis: Unspecified Diagnosis End: 03-Sep-2013 7:40 [facility] Office Visit On: 30-Jul-2013 14:33 Encounter Reason: Follow up acute care visit - The patient does not feel well and worsening. Patient has been compliant with instructions. Current medication use: compliant with dosing regimen and not considered effectiv End: 30-Jul-2013 14:52 e by patient. The medical issues the patient is following up for include All identified problems below and other (pharyngitis).Encounter Diagnosis: Nasal congestion, ACUTE SINUSITIS, UNSPECIFIED (461.9) [facility] Office Visit On: 26-Jul-2013 9:31 Encounter Reason: Sore Throat - Onset was 1 day(s) ago.Encounter Diagnosis: ACUTE PHARYNGITIS (462.), VIRAL INFECTION, UNSPECIFIED (079.99) End: 26-Jul-2013 9:52 [facility] Office Visit On: 06-Jul-2013 10:51 Encounter Reason: Annual Medicare Exam - The patient had reviewed and updated the family history, medication/s, past medical history and social history. Yes the patient did have ([facility] 04[facility] ) a mini mental statu End: 08-Jul-2013 7:04 s exam done today. The activities of daily living the patient needs help with are none. The patient has had fecal incontinence (little on underwear), had urinary incontinence (little leak), driven in [place] [address] 6 months, put area rugs through house and put handrails in bathroom, but the patient has not missed or ran out of medications to soon, fallen in the past 6 months, gotten lost or has a medalert neckl manisha or bracelet. The patient has completed the following preventative measures: colonoscopy (see [facility] for colonscopy ). 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 The patien t has noticed dropping activities and interests, getting bored, feeling sad most of time, staying at home rather than doing something new or going out, having problems with memory than others and lack o f energy. Other providers contributing to the patient's care are rag room supervisor (Dr Horvath) and car storer (Dr Macdonald). Note for Annual Medicare Exam: with long winter think why more depression signs and symptoms. usually better in spring and summer. 9-13 eye exam, [ADDITIONAL REASON] Follow up for chronic medical issues - The patient feels well with minor complai nts (bad h/a x 1 week - says longer), has good energy level and is sleeping well. Patient has been compliant with instructions. Current medication use: no side effects. Patient sleeps 6 (wakes with h/a and takes ibuprofen -- lasts all day) hours per night. Impact of disease: emotional impact-mild. Nutrition: balanced diet and supplemental vitamins. The medical issues the patient is following up f or include blood sugar issues, cardiac issues, high blood pressure, high cholesterol and other (anxiety, DDD, SASHA, thrombocytopenia, vitmain d def. ). Encounter Diagnosis: Impaired fasting glucose (790.21), Well Male Exam (V70.0), Hypertension,benign(401.1), Coronary Artery Disease (414.00), Hyperlipidemia, Mixed (272.2), Mitral Valve Prolapse (746.9), Obstructive sleep apnea (327.23), Degenerative Disc Disease - Cervical Spine (722.4), arthritis,unspecified (716.90), Carotid Stenosis (433.10), Obesity (278.00), BMI 32.0-32.9, ADULT (V85.32), Thrombocytopenia (287.5), Tremor (781.0), Hypertension (401.9), Anxiety state, unspecified (300.00), VITAMIN D DEFICIENCY, NOS (268.9), Headache (784.0) [facility] Office Visit On: 11-Mar-2013 9:15 Encounter Reason: Follow up for chronic medical issues - The patient feels well with minor complaints, has good energy level and is sleeping well. Patient has been compliant with instructions. Current medication use: no End: 11-Mar-2013 10:18 side effects, compliant with dosing regimen and considered effective by patient. Patient sleeps 8 hours per night. Impact of disease: emotional impact-mild. Nutrition: balanced diet and supplemental vit amins. The medical issues the patient is following up for include blood sugar issues, cardiac issues, high blood pressure, high cholesterol and other (anxiety, DDD, SASHA, thrombocytopenia, vitmain d def. ).Encounter Diagnosis: Impaired fasting glucose (790.21), Obstructive sleep apnea (327.23), Degenerative Disc Disease - Cervical Spine (722.4), arthritis,unspecified (716.90), Mitral Valve Prolapse (746.9), Hypertension,benign(401.1), Coronary Artery Disease (414.00), Hyperlipidemia, Mixed (272.2), Thrombocytopenia (287.5), Carotid Stenosis (433.10), Hypertension (401.9), Anxiety state, unspecified (300.00), VITAMIN D DEFICIENCY, NOS (268.9), Tremor (781.0), Obesity (278.00), BMI 32.0-32.9, ADULT (V85.32) [facility] Office Visit On: 08-Feb-2013 14:47 Encounter Reason: Follow up hospital - Reason for ER visit: note: (chest pressure/tightness ). The patient feels well with minor complaints, has decreased energy level and is sleeping well. Patient has been compliant wit End: 08-Feb-2013 15:18 h instructions. Current medication use: compliant with dosing regimen. Patient sleeps 8 hours per night. Impact of disease: emotional impact-mild. Nutrition: balanced diet and supplemental vitamins. The hospital results of the stress test and other (carotids ) were Note for Follow up hospital: chest pressure gone. now increase lexapro can tell a difference.Encounter Diagnosis: Anxiety state, unspecified (300.00), Hyperlipidemia, Mixed (272.2), Coronary Artery Disease (414.00), Hypertension (401.9), Vertigo (780.4), Carotid Stenosis (433.10), Thrombocytopenia (287.5), Well Male Exam (V70.0) [facility] Office Visit On: 11-Jan-2013 11:55 Encounter Diagnosis: Vertigo (780.4) End: 11-Jan-2013 13:07 [facility] Office Visit On: 12-Nov-2012 9:21 Encounter Reason: Follow up for chronic medical issues - The patient feels well with no complaints, has good energy level and is sleeping well. Patient has been compliant with instructions. Current medication use: no eduarda End: 12-Nov-2012 10:01 e effects, compliant with dosing regimen and considered effective by patient. Patient sleeps 8 (wears CPap ) hours per night. Impact of disease: emotional impact- mild. Nutrition: balanced diet and suppl emental vitamins. The medical issues the patient is following up for include blood sugar issues, cardiac issues, depression (anxiety ), gastric reflux, high blood pressure, high cholesterol and other (SASHA, DDD ).Encounter Diagnosis: Impaired fasting glucose (790.21), Hypertension (401.9), Mitral Valve Prolapse (746.9), Hypertension,benign(401.1), Degenerative Disc Disease - Cervical Spine (722.4), arthritis,unspecified (716.90), Obstructive sleep apnea (327.23), Hyperlipidemia, Mixed (272.2), Coronary Artery Disease (414.00), WMV V790.00 (Renamed from WMV), Anxiety state, unspecified (300.00), VITAMIN D DEFICIENCY, NOS (268.9) [facility] Lab Order On: 20-Aug-2012 12:15 Encounter Diagnosis: SCREENING FOR PROSTATE CA (V76.44) End: 20-Aug-2012 12:17 [facility] Office Visit On: 16-Jul-2012 10:48 Encounter Reason: Follow up for chronic medical issues - The patient feels well with minor complaints, has decreased energy level and is sleeping well (wears bi pap ). Patient has been compliant with instructions. Mary End: 16-Jul-2012 11:50 t medication use: no side effects and compliant with dosing regimen. Patient sleeps 7 hours per night. Impact of disease: emotional impact-mild. Nutrition: balanced diet and supplemental vitamins. The m edical issues the patient is following up for include blood sugar issues, cardiac issues, depression (anxiety ), gastric reflux, high blood pressure, high cholesterol and other (urinary urge incont. , DDD, vitamin d def. ).Encounter Diagnosis: Impaired fasting glucose (790.21), Hypertension (401.9), Coronary Artery Disease (414.00), Abnormal CT of Brain(794.09), Unspecified hearing loss (389.9), arthritis,unspecified (716.90), Urinary Urge Incontinence (788.31), Obstructive sleep apnea (327.23), Degenerative Disc Disease - Cervical Spine (722.4), Headache (784.0), Hyperlipidemia, Mixed (272.2), Mitral Valve Prolapse (746.9), Hypertension,benign(401.1), GERD (530.81), WMV V790.00 (Renamed from WMV), Anxiety state, unspecified (300.00), VITAMIN D DEFICIENCY, NOS (268.9), Abdominal pain (789.00) [facility] Office Visit On: 08-Jun-2012 14:58 Encounter Reason: Follow up acute care visit - The patient feeling better since last seen (vertigo). Patient has been compliant with instructions. Current medication use: no side effects. The medical issues the patient i End: 08-Jun-2012 15:15 s following up for include other.Encounter Diagnosis: Hypertension (401.9), Vertigo (780.4) [facility] Office Visit On: 01-Jun-2012 16:21 Encounter Reason: Dizziness/ - The onset of the dizziness/ has been sudden and has been occurring in a persistent pattern for hours. The course has been constant. The dizziness/ is characterized as lightheadedness. The d End: 01-Jun-2012 16:48 izziness/ is precipitated by position change and head turning. The symptoms have been associated with headache (occular), while the symptoms have not been associated with fasting, loss of balance, nausea or sweating.Encounter Diagnosis: Vertigo (780.4), Headache (784.0), Hypertension (401.9) [facility] Office Visit On: 24-Mar-2012 11:17 Encounter Reason: Follow up for chronic medical issues - The patient feels well with minor complaints, has good energy level and is sleeping well. Patient has been compliant with instructions. Current medication use: no End: 24-Mar-2012 11:52 side effects, compliant with dosing regimen and considered effective by patient. Patient sleeps 8 hours per night. Impact of disease: emotional impact-mild. Nutrition: balanced diet and supplemental vit amins. The medical issues the patient is following up for include blood sugar issues, cardiac issues, depression, gastric reflux, high blood pressure, high cholesterol and other (urinary urge incont., SASHA, vitamin d def., DDD ).Encounter Diagnosis: Impaired fasting glucose (790.21), Anxiety state, unspecified (300.00), Hypertension,benign(401.1), Hyperlipidemia, Mixed (272.2), Mitral Valve Prolapse (746.9), arthritis,unspecified (716.90), Coronary Artery Disease (414.00), Abnormal CT of Brain(794.09), Urinary Urge Incontinence (788.31), Headache (784.0), Obstructive sleep apnea (327.23), Degenerative Disc Disease - Cervical Spine (722.4), Unspecified hearing loss (389.9), GERD (530.81), WMV V790.00 (Renamed from WMV) , VITAMIN D DEFICIENCY, NOS (268.9) [facility] Office Visit On: 21-Jan-2012 10:18 Encounter Reason: Follow up acute care visit - The patient feeling better since last seen (Has been feeling better and follows up with Ashok at today for his PT). Patient has been compliant with instructions. Current m End: 21-Jan-2012 11:17 edication use: no side effects. The medical issues the patient is following up for include other.Encounter Diagnosis: Need for prophylactic vaccination and inoculation against influenza (V04.81), Degenerative Disc Disease - Cervical Spine (722.4), Obstructive sleep apnea (327.23), Abdominal Pain,RLQ (789.03) [facility] Office Visit On: 31-Dec-2011 15:08 Encounter Reason: Abdominal Pain, Male - Symptoms include abdominal pain. The pain is located in the right lower quadrant. The pain radiates to the right flank. The patient describes the pain as dull and aching. Onset wa End: 31-Dec-2011 15:59 s sudden 3 day(s) ago. There is no known event that preceded symptom onset. The symptoms occur constantly. The patient describes this as moderate in severity and unchanged. Associated symptoms do not in clude fever, melena, bloody stool, dysuria, hematuria or dark urine.Encounter Diagnosis: Abdominal Pain,RLQ (789.03) [facility] Office Visit On: 24-Dec-2011 7:34 Encounter Reason: Follow up for chronic medical issues - The patient feels well with minor complaints and has decreased energy level. Patient has been compliant with instructions. Current medication use: no side effects, End: 24-Dec-2011 10:26 compliant with dosing regimen and considered effective by patient. Patient sleeps 7 hours per night. Impact of disease: emotional impact-mild. Nutrition: balanced diet and supplemental vitamins. The me dical issues the patient is following up for include blood sugar issues, cardiac issues, depression (anxiety ), gastric reflux, high blood pressure, high cholesterol, hypothyroid and other (urinary urge incont. ).Encounter Diagnosis: Hypertension,benign(401.1), Impaired fasting glucose (790.21), Degenerative Disc Disease - Cervical Spine (722.4), Sinusitis,chronic (473.9), Mitral Valve Prolapse (746.9), arthritis,unspecified (716.90), Unspecified visual disturbance (368.9), Coronary Artery Disease (414.00), Hyperlipidemia, Mixed (272.2), Urinary Urge Incontinence (788.31), Headache (784.0), Abnormal CT of Brain(794.09), GERD (530.81), WMV V790.00 (Renamed from WMV), Unspecified hearing loss (389.9), Anxiety state, unspecified (300.00), BRONCHITIS, NOT SPECIFIED ACUTE OR CHRONIC (490.), Forearm Pain (719.43), FEVER (780.6), Acute prostatitis (601.0), Shoulder pain (719.41), Lesion-Unknown behavior (238.2), VITAMIN D DEFICIENCY, NOS (268.9), CANDIDIASIS, MOUTH (THRUSH) (112.0), Abdominal Pain,LUQ (789.02), Abnormal Lung Sounds/Rales (786.7), PROSTATITIS NOS (601.9), Backache, unspecified (724.5) [facility] Phone Encounter On: 23-Dec-2011 16:20 Encounter Diagnosis: Abnormal CT of Brain(794.09) End: 23-Dec-2011 16:22 [facility] Phone Encounter On: 19-Dec-2011 16:37 Encounter Diagnosis: Headache (784.0) End: 19-Dec-2011 16:38 [facility] Office Visit On: 16-Dec-2011 9:21 Encounter Diagnosis: Headache (784.0) End: 16-Dec-2011 10:21 [facility] Office Visit On: 29-Oct-2011 10:55 Encounter Reason: Rash - Symptoms include localized rash. The patient describes the rash as red. The rash is located on the right leg. Onset was sudden 2 day(s) ago. The rash is spreading. Symptoms are moderate in severi End: 29-Oct-2011 11:34 ty. Symptoms are not exacerbated by stress, food triggers, sun exposure, heat exposure or personal care products.Encounter Diagnosis: Rash (782.1) [facility] Office Visit On: 14-Oct-2011 14:38 Encounter Reason: Follow up acute care visit - The patient feeling better since last seen and improving. Patient has been compliant with instructions. Current medication use: compliant with dosing regimen and considered End: 14-Oct-2011 15:01 effective by patient. Patient sleeps 7 hours per night. Impact of disease: emotional impact-mild. Nutrition: balanced diet and supplemental vitamins. The medical issues the patient is following up for include depression.Encounter Diagnosis: Anxiety state, unspecified (300.00) [facility] Office Visit On: 02-Oct-2011 8:32 Encounter Reason: Insect Bite/Sting - The patient sustained an insect bite/sting to the right arm. This occurred 3 day(s) ago at home and while doing yardwork. Presenting symptoms included insect bite/sting, itching at t End: 02-Oct-2011 9:02 he site of the bite/sting, swelling at the site of the bite/sting and redness at the site of the bite/sting. Symptoms include single bite or sting. Symptoms are located on the right arm. Onset was sudde n 3 day(s) ago. The symptoms occur constantly. The patient describes this as mild and worsening. Associated symptoms do not include difficulty breathing, fever, abdominal pain or headache.Encounter Diagnosis: Forearm (881.00) [facility] Office Visit On: 24-Sep-2011 10:50 Encounter Reason: Follow up, Diagnostic Procedure Results - Diagnostic tests include other (labs ). Date: (09-16-11). Current symptoms include other (fatigue ).Encounter Diagnosis: Hyperlipidemia, Mixed (272.2), Mitral Valve Prolapse (746.9), End: 24-Sep-2011 11:09 GERD (530.81), Coronary Artery Disease (414.00), Hypertension,benign(401.1), Urinary Urge Incontinence (788.31), Anxiety state, unspecified (300.00), WMV V790.00 (Renamed from WMV), Impaired fasting glucose (790.21) [facility] Office Visit On: 17-Jun-2011 10:20 Encounter Reason: Follow up for chronic medical issues - The patient feels well with minor complaints, has good energy level and is sleeping well. Patient has been compliant with instructions. Current medication use: no End: 17-Jun-2011 11:06 side effects, compliant with dosing regimen and considered effective by patient. Patient sleeps 7 hours per night. Impact of disease: emotional impact-mild. Nutrition: balanced diet and supplemental vit amins. The medical issues the patient is following up for include cardiac issues, depression (anxiety), gastric reflux, high blood pressure, high cholesterol and other (urinary urge incont. ).Encounter Diagnosis: Hypertension,benign(401.1), Coronary Artery Disease (414.00), Hyperlipidemia, Mixed (272.2), Anxiety state, unspecified (300.00), Mitral Valve Prolapse (746.9), GERD (530.81), [facility] V790.00 (Renamed from [facility]) [facility] Office Visit On: 30-Apr-2011 10:34 Encounter Reason: Follow up acute care visit - The patient feeling better since last seen and improving. Patient has been compliant with instructions. Current medication use: no side effects, compliant with dosing regime End: 30-Apr-2011 11:05 n and considered effective by patient. Patient sleeps 7 hours per night. The medical issues the patient is following up for include All identified problems below and other (thrush).Encounter Diagnosis: CANDIDIASIS, MOUTH (THRUSH) (112.0) [facility] Office Visit On: 23-Apr-2011 10:15 Encounter Reason: Sore Throat - Symptoms include sore throat. The symptoms are left sided. Onset was 4 day(s) ago.Encounter Diagnosis: ACUTE PHARYNGITIS (462.), CANDIDIASIS, MOUTH (THRUSH) (112.0) End: 23-Apr-2011 10:53 [facility] Office Visit On: 18-Feb-2011 10:29 Encounter Reason: Follow up for chronic medical issues - The patient feels well with minor complaints, has good energy level and is sleeping well. Patient has been compliant with instructions. Current medication use: no End: 18-Feb-2011 10:58 side effects, compliant with dosing regimen and considered effective by patient. Patient sleeps 7 hours per night. Impact of disease: emotional impact-mild. Nutrition: balanced diet and supplemental vit amins. The medical issues the patient is following up for include cardiac issues, depression (anxiety ), gastric reflux, high blood pressure, high cholesterol and kidney problems.Encounter Diagnosis: Need for prophylactic vaccination and inoculation against influenza (V04.81), Hypertension,benign(401.1), Mitral Valve Prolapse (746.9), Hyperlipidemia, Mixed (272.2), arthritis,unspecified (716.90), Coronary Artery Disease (414.00), GERD (530.81) , Urinary Urge Incontinence (788.31), [facility] V790.00 (Renamed from [facility]) [facility] Office Visit On: 19-Nov-2010 10:33 Encounter Reason: Follow up for chronic medical issues - The patient feels well with minor complaints, has good energy level and is sleeping well. Patient has been compliant with instructions. Current medication use: no End: 19-Nov-2010 11:03 side effects and compliant with dosing regimen. Patient sleeps 7 hours per night. Impact of disease: emotional impact-mild. Nutrition: balanced diet and supplemental vitamins. The medical issues the pat ient is following up for include cardiac issues, depression (anxiety ), gastric reflux, high blood pressure, high cholesterol and other (urgency ).Encounter Diagnosis: GERD (530.81), Coronary Artery Disease (414.00), Hyperlipidemia, Mixed (272.2), arthritis,unspecified (716.90), Mitral Valve Prolapse (746.9), Hypertension,benign(401.1), Anxiety state, unspecified (300.00) [facility] Office Visit On: 20-Aug-2010 10:38 Encounter Reason: Follow up for chronic medical issues - The patient feels well with minor complaints and has decreased energy level. Patient has been compliant with instructions. Current medication use: no side effects, End: 20-Aug-2010 11:14 compliant with dosing regimen and considered effective by patient. Patient sleeps 7 hours per night. Impact of disease: emotional impact-mild. Nutrition: balanced diet and supplemental vitamins. The me dical issues the patient is following up for include cardiac issues, depression (anxiety ), high blood pressure, high cholesterol and other (urinary frequency ).Encounter Diagnosis: Hypertension,benign(401.1), Diarrhea (787.91), Coronary Artery Disease (414.00), Hyperlipidemia, Mixed (272.2), GERD (530.81), Mitral Valve Prolapse (746.9), arthritis,unspecified (716.90), Anxiety state, unspecified (300.00), [facility] Office Visit On: 09-Aug-2010 8:46 Encounter Reason: Follow up acute care visit - The patient feels the same. Patient has been compliant with instructions. Current medication use: experiencing side effects (did not like the enablex ). Patient sleeps 7 raj End: 09-Aug-2010 9:16 rs per night. Impact of disease: emotional impact-mild. Nutrition: balanced diet and supplemental vitamins. The medical issues the patient is following up for include other (urinary urge ).Encounter Diagnosis: Urinary frequency (788.41) [facility] Office Visit On: 02-Jul-2010 9:24 Encounter Diagnosis: Anxiety state, unspecified (300.00), Urinary Urge Incontinence (788.31) End: 02-Jul-2010 10:01 [facility] Phone Encounter On: 22-May-2010 12:00 Encounter Diagnosis: Anxiety state, unspecified (300.00) End: 22-May-2010 12:02 [facility] Phone Encounter On: 14-Feb-2010 9:08 Encounter Diagnosis: Unspecified Diagnosis End: 14-Feb-2010 9:11 [facility] Phone Encounter On: 09-Feb-2010 8:04 Encounter Diagnosis: Hypertension,benign(401.1) End: 09-Feb-2010 8:05 [facility] Annotation/Addendum On: 06-Feb-2010 11:15 Encounter Reason: Follow up for chronic medical issues - The patient feels well with minor complaints, has good energy level and is sleeping well. Patient has been compliant with instructions. Current medication use: no End: 06-Feb-2010 11:49 side effects, compliant with dosing regimen and considered effective by patient. Patient sleeps 8 hours per night. Impact of disease: emotional impact-mild. Nutrition: balanced diet and supplemental vit amins. The medical issues the patient is following up for include cardiac issues, depression (anxiety), gastric reflux, high blood pressure, high cholesterol and other (vitamin d def. ).Encounter Diagnosis: Need for prophylactic vaccination and inoculation against influenza (V04.81), Urinary frequency (788.41), Unspecified hearing loss (389.9), Sinusitis,chronic (473.9), Mitral Valve Prolapse (746.9), arthritis,unspecified (716.90), Headache (784.0), Hypertension,benign(401.1), Hyperlipidemia, Mixed (272.2), Unspecified visual disturbance (368.9), Coronary Artery Disease (414.00), GERD (530.81), VITAMIN D DEFICIENCY, NOS (268.9), PNEUMONIA, ORGANISM UNSPECIFIED (486.), Backache, unspecified (724.5), Anxiety state, unspecified (300.00), Urinary Urge Incontinence (788.31) [facility] Office Visit On: 24-Nov-2009 10:00 Encounter Reason: Follow up acute care visit - The patient feels the same. Patient has been compliant with instructions. Current medication use: no side effects ,compliant with dosing regimen and considered effective by End: 24-Nov-2009 10:21 patient. Patient sleeps 8 hours per night. Impact of disease: emotional impact-moderate. Nutrition: balanced diet and supplemental vitamins. The medical issues the patient is following up for include other (LLQ pain). Encounter Diagnosis: Abdominal Pain,LLQ (789.04) [facility] Office Visit On: 21-Nov-2009 15:50 Encounter Reason: Abdominal pain - The onset of the pain has been sudden and has been occurring in a persistent pattern for 3 days. The course has been constant. The pain is described as a moderate burning ,sharp pain an End: 21-Nov-2009 16:15 d dull ache. The pain is described as being located in the left lower quadrant. The pain does not radiate. The symptoms have no aggravating factors. The symptoms have no relieving factors. There has bee n no associated abdominal distention ,bloating ,constipation or diarrhea. Encounter Diagnosis: Abdominal Pain,LLQ (789.04), Abdominal Pain,LUQ (789.02) [facility] Office Visit On: 07-Aug-2009 9:29 Encounter Reason: Follow up for chronic medical issues - The patient feels well with minor complaints ,has good energy level and is sleeping well. Patient has been compliant with instructions. Current medication use: com End: 07-Aug-2009 9:55 pliant with dosing regimen. Patient sleeps 8 hours per night. Impact of disease: emotional impact-mild. Nutrition: balanced diet and supplemental vitamins. The medical issues the patient is following up for include cardiac issues ,depression ,gastric reflux ,high blood pressure ,high cholesterol and other (vitamin d def.). Encounter Diagnosis: GERD (530.81), VITAMIN D DEFICIENCY, NOS (268.9), Coronary Artery Disease (414.00), Hyperlipidemia, Mixed (272.2), Unspecified hearing loss (389.9), Unspecified visual disturbance (368.9), Sinusitis,chronic (473.9), Hypertension,benign(401.1), Mitral Valve Prolapse (746.9), Headache (784.0), arthritis,unspecified (716.90) [facility] Office Visit On: 21-Jul-2009 11:36 Encounter Reason: Follow up acute care visit - The patient feeling better since last seen and improving. Patient has been compliant with instructions. Current medication use: no side effects ,compliant with dosing regime End: 21-Jul-2009 12:11 n and considered effective by patient. Patient sleeps 8 hours per night. Nutrition: balanced diet and supplemental vitamins. The medical issues the patient is following up for include All identified problems below and other (prostatitis). Encounter Diagnosis: Abnormal Lung Sounds/Rales (786.7), PROSTATITIS NOS (601.9) [facility] Office Visit On: 14-Jul-2009 11:56 Encounter Reason: Follow up ER - Reason for hospitalization note: (Pt said uncontrollable shaking and cold.). Patient has been compliant with instructions. Current medication use: compliant with dosing regimen. The patie End: 14-Jul-2009 12:37 nt does not feel well ,has decreased energy level and is sleeping well. Patient sleeps 8 hours per night. Nutrition: balanced diet and supplemental vitamins. Encounter Diagnosis: Abnormal Lung Sounds/Rales (786.7), FEVER (780.6), PROSTATITIS NOS (601.9) [facility] Office Visit On: 11-May-2009 9:58 Encounter Reason: Follow up for chronic medical issues - The patient feels well with no complaints ,has good energy level and is sleeping well. Patient has been compliant with instructions. Current medication use: no eduarda End: 11-May-2009 10:21 e effects ,compliant with dosing regimen and considered effective by patient. Patient sleeps 7 hours per night. Impact of disease: emotional impact-mild. Nutrition: balanced diet and supplemental vitami ns. The medical issues the patient is following up for include cardiac issues ,depression (anxiety) ,gastric reflux ,high blood pressure and high cholesterol. Encounter Diagnosis: Hypertension,benign(401.1), Sinusitis,chronic (473.9), Unspecified visual disturbance (368.9), arthritis,unspecified (716.90), Backache, unspecified (724.5), Anxiety state, unspecified (300.00), Headache (784.0), Mitral Valve Prolapse (746.9), Unspecified hearing loss (389.9), Hyperlipidemia, Mixed (272.2), Coronary Artery Disease (414.00), VITAMIN D DEFICIENCY, NOS (268.9), GERD (530.81) [facility] Office Visit On: 20-Mar-2009 11:47 Encounter Reason: Elbow Pain - The onset of the elbow pain has been acute and has been occurring in an intermittent pattern for 2 weeks. The course has been gradually worsening. The elbow pain is moderate. The elbow pain End: 20-Mar-2009 12:10 is characterized as a dull aching. The elbow pain is described as being located over the lateral elbow ,over the medial elbow and into the forearm. Aggravating factors include physical activity ,flexin g elbow ,extending elbow ,overhead activities and lifting. There were no relieving factors. The symptoms have been associated with stiffness ,swelling in the elbow (left at times ) ,difficulty using ext remity and difficulty turning doorknobs. Previous medications have included Ibuprofen. Encounter Diagnosis: Forearm Pain (719.43) [facility] Office Visit On: 31-Jan-2009 11:22 Encounter Reason: Follow up for chronic medical issues - The patient feels well with no complaints ,has good energy level and is sleeping well. Patient has been compliant with instructions. Current medication use: no eduarda End: 31-Jan-2009 11:58 e effects ,compliant with dosing regimen and considered effective by patient. Patient sleeps 7 hours per night. Impact of disease: emotional impact-mild. Nutrition: balanced diet. The medical issues the patient is following up for include cardiac issues ,depression (anxiety ) ,gastric reflux ,high blood pressure ,high cholesterol and other (vitamin d def. ). Encounter Diagnosis: GERD (530.81), Mitral Valve Prolapse (746.9), Need for prophylactic vaccination and inoculation against influenza (V04.81), VITAMIN D DEFICIENCY, NOS (268.9), Anxiety state, unspecified (300.00), Sinusitis,chronic (473.9), Coronary Artery Disease (414.00), arthritis,unspecified (716.90), Unspecified visual disturbance (368.9), Unspecified hearing loss (389.9), Hyperlipidemia, Mixed (272.2), Hypertension,benign(401.1) [facility] Historical Summary On: 10-Nov-2008 9:24 [facility] End: 10-Nov-2008 9:25 Office Visit On: 13-Jul-2008 9:00 Encounter Reason: Follow up for chronic medical issues - The patient feels well with no complaints ,has good energy level and is sleeping well. Patient has been compliant with instructions. Current medication use: no eduarda End: 13-Jul-2008 9:24 e effects ,compliant with dosing regimen and considered effective by patient. Patient sleeps 7 hours per night. Impact of disease: emotional impact-mild. Nutrition: balanced diet and supplemental vitami ns. The medical issues the patient is following up for include cardiac issues ,depression (anxiety ) ,gastric reflux ,high blood pressure and high cholesterol. Encounter Diagnosis: Mitral Valve Prolapse (746.9), Anxiety state, unspecified (300.00), Hypertension,benign(401.1), Sinusitis,chronic (473.9), Coronary Artery Disease (414.00), Hyperlipidemia, Mixed (272.2), GERD (530.81), Headache (784.0), [facility] Office Visit On: 27-May-2008 14:20 Encounter Reason: Coughing blood - The onset of the coughing blood has been sudden and has been occurring in an intermittent pattern for 1 weeks. The course has been recurrent. The sputum is described as blood-tinged sputum. Encounter Diagnosis: End: 27-May-2008 14:45 BRONCHITIS, NOT SPECIFIED ACUTE OR CHRONIC (490.) [facility] Office Visit On: 18-May-2008 11:39 Encounter Diagnosis: Lesion-Unknown behavior (238.2) End: 18-May-2008 12:23 [facility] Historical Summary On: 05-May-2008 14:53 [facility] End: 05-May-2008 14:56 Annotation/Addendum On: 18-Apr-2008 16:15 Encounter Diagnosis: Shoulder pain (719.41) End: 18-Apr-2008 16:15 [facility] Office Visit On: 18-Apr-2008 15:04 Encounter Reason: Follow up for chronic medical issues - The patient feels well with no complaints ,has good energy level and is sleeping well. Patient has been compliant with instructions. Current medication use: no eduarda End: 18-Apr-2008 16:11 e effects ,compliant with dosing regimen and considered effective by patient. Patient sleeps 7 hours per night. Impact of disease: emotional impact-mild. Nutrition: balanced diet. The medical issues the patient is following up for include cardiac issues ,depression (anxiety ) ,gastric reflux ,high blood pressure and high cholesterol. Encounter Diagnosis: Hypertension,benign(401.1), Anxiety state, unspecified (300.00), Hyperlipidemia, Mixed (272.2) , GERD (530.81), SYMPTOMS INVOLVING URINARY SYSTEM; DYSURIA (788.1), Mitral Valve Prolapse (746.9), arthritis,unspecified (716.90), Acute prostatitis (601.0), Backache, unspecified (724.5), Headache (784.0), Unspecified hearing loss (389.9), PNEUMONIA, ORGANISM UNSPECIFIED (486.), Sinusitis,chronic (473.9), Unspecified visual disturbance (368.9), VitaminD deficiency, Coronary Artery Disease (414.00), Lesion-Unknown behavior (238.2), Shoulder pain (719.41), [facility] Office Visit On: 14-Apr-2008 7:42 Encounter Reason: UTI - The urinary symptoms are described as frequency ,urgency ,hesitancy ,flank pain and burning. The symptoms have been occurring for 1 weeks and have been constant. There is a medical history of kidn End: 14-Apr-2008 8:13 ey stones. Note for UTI: had stones in past some pressure in lower back and and lower abd. had urination few days ago--felt pain and heard crystals into toilet. alot caffiene. decreaser off lexapro--t hen 03-05 had painic attacks. restart lexapro 1/2 a day. not circumcised.Encounter Diagnosis: SYMPTOMS INVOLVING URINARY SYSTEM; DYSURIA (788.1), Hypertension,benign(401.1), Anxiety state, unspecified (300.00), Mitral Valve Prolapse (746.9), arthritis,unspecified (716.90), Acute prostatitis (601.0) [facility] Historical Summary On: 13-Apr-2008 8:03 [facility] End: 13-Apr-2008 8:[address] varela guarantor
--- OUTSIDE RECORDS SUMMARY | 2018-05-05 23:56 | XMS RPT_ITS | Continuity of Care Document ---
:1935 Author Organization [facility] Address [address] [place] [address] Phone Care Team Providers Name Role Phone Alberto HARRY, Samia Villalba Unavailable Claudia Dutton Unavailable Unavailable Julito HARRY, Dr. Jennings Unavailable [facility], Gustavo Mayo Unavailable Mehdi Foote Unavailable [...] Dana M Start : 09-Feb-2018 Active Comments:ID# [id number] Meclizine HCl 12.5 MG Oral Tablet 1 [...] : 01-May-2012 End : 08-Feb-2013 Inactive Comments:ID# [id number] HYDROCODONE-ACETAMINOPHEN, 5-325MG (Oral Tablet) 1 (one) Tablet 1-2 q6hrs prn for 0 days Quantity: 30 {Tablet} Refills: 0 Ordered:26-Nov-2013 Alberto HARRY, Samia Atkins MD, Samia Villalba Start : 26-Nov-2013 End : 26-Nov-2013 Inactive KETOROLAC TROMETHAMINE, 10MG (Oral Tablet) 1 Tablet q6hrs for 2 days Quantity: 8 {Tablet} Refills: 0 Ordered:31-Dec-2011 Tashiamaggynichole BROWNAparna Start : 31-Dec-2011 End : 02-Jan-2012 Inactive [...] : 17-Jun-2011 Discontinued Comments:This order discontinued per [facility]. LIPITOR, 10MG (Oral Tablet) 1 Tablet qhs [...] Comments: had xray, pt, [facility], injection good for 6 weeks--now back talk [...] as of 16-Jul-2012 WM V790.00 (Renamed from [facility]) Comments: family of colon ca--gets scope [...] Jt Should/Hip/Knee Result: Comments: See Note; NOTES: [facility] Imaging Services [address] [place] [address] Inj/Asp Reza Jt Should/Hip/Knee MR#: [id number] Acct: [id number] Name: MOISES AHUJA Rep # : [id number] : 1935 M 83 From: Abdoulaye Garcia MD PCP: Samia Domniguez MD Status: REG CLI Study: Inj/Asp Reza Jt Should/Hip/Knee Date of Exam: 03/11/18 Exam# [id number] Ordering Dr: Anmol Fisher MD PROCEDURE: Fluoroscopic [...] Abdoulaye Garcia MD at 9:42 EST Tel [phone], Service support , CC: Samia Dominguez MD; Anmol Fisher MD Client Services Manager: Signed 05-Mar-2018 PT D/C Summary (1) Result: Comments: See Note; NOTES: [facility] [address] [place] [address] Fax REHABILITATION SERVICES DISCHAR GE SUMMARY MR#: [id number] Acct: [id number] Name: MOISES AHUJA Rep #: [id number] [...] please feel free to call me at [phone]. Thank you for the referral of this patient. Sincerely, Ashok Nolasco, ESPERANZAT, OC <Electronically signed by Ashok Nolasco DPT, OCS, CSCS> 03/05/18 0911 CC: Samia Dominguez MD; OUT OF TOWN DOCTOR EBG Signed 18-Feb-2018 Inital Evaluation (1) - PT Result: Comments: See Note; NOTES: [facility] [address] [place], [place] [address] Fax REHABILITATION SERVICES INITIAL EVALUATION MR#: [id number] Acct: [id number] Name: MOISES AHUJA Rep #: [id number] : 1935 82 From: Ashok Nolasco DPT, OCS, CSCS Referring DrKarl: OUT OF TOWN DOCTOR Status: REG RCR Insurance: [place] [employer] PART A B ANTHEM Patient's Visit Information [...] to be FAXED BACK to us at [phone] for Medicare purposes. Please let me know [...] - Endoscopy Result: Comments: See Note; NOTES: [facility] Medical Records Department [address] [place] [address] Operative Report - Endoscopy MR#: [id number] Acct: [id number] Name: MOISES AHUJA Rep #: [id number] : 1935 82 From: Mehdi Foote MD PCP: Samia Dominguez MD Status: REG [facility] Patient Name: Moises Ahuja Procedure Date: 01/16/2018 [...] to age. Procedure Code(s): --- Professional --- 54083, PT, Colonoscopy, flexible; diagnostic, including collection of specimen(s) by brushing or washing, when performed (separate procedure) Diagnosis Code(s): --- Professional --- Z86.010, Personal history o f colonic polyps K57.30, Diverticulosis of large intestine without perforation or abscess without bleeding CPT copyright 2017 [employer]. All rights reserved. The codes documented in t his report are preliminary and upon loss prevention guard review may be revised to meet current compliance requirements. Mehdi Foote MD 01/16/2018 10:49:47 AM This report has been signed electronically. Number o f Addenda: 0 Note Initiated On: 01/16/2018 10:15 AM 01/16/18 1049 Date Mehdi Foote MD Cosigner Signature: Date (if indicated) CC: Mehdi Foote MD; Samia Dominguez MD Date Dictated: 01/16/18 1015 Date Transcribed: Client Services Manager: SCOT Signed 30-Dec-2017 Surgery Visit Report Result: Comments: See Note; NOTES: [facility] [address] [place], [place] [address] OFFICE VISIT Date of Service: 12/30/17 MR#: [id number] Acct: [id number] Name: MOISES AHUJA Rep #: [id number] : 1935 Provider: Nay Quesada PA-C Age/Sex: 82/M Location: [facility] Status: Signed Intake Vital Signs12/30/17 Height 5 ft 7 in 12/30/17 Weight: 195 lb Intake Visit Reasons: UPDATE H AND P Special Machine Stitcher Required: No Is patient in pain?: No [...] P O QDAY 10/22/17 [History Confirmed 12/30/17] [facility] Medical History Nonrheumatic mitral valve prolapse (Chronic) [...] cardiac history of mitral valve prolapse. 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 Patient's previous history [...] <Electronically signed by Jaja Quesada PA-C> Date Nay Quesada PA-C Cosigner Signature: Date (if applicable) CC: 05-Nov-2017 Surgery Visit Report Result: Comments: See Note; NOTES: [facility] [address] [place] [address] OFFICE VISIT Date of Service: 11/05/17 MR#: [id number] Acct: [id number] Name: MOISES AHUJA Rep #: [id number] : 1935 Provider: Mehdi Foote MD Age/Sex: 82/M Location: [facility] Status: Signed Intake Vital Signs11/05/17 Height 5 ft 7 in 11/05/17 Weight: 201 lb 11/05/17 Bod y Mass Index (BMI) 31.4 Intake Visit Reasons: C-Scope Screening Special Machine Stitcher Required: No Is patient in pain?: No [...] colonoscopy in December. Mehdi Foote MD Pager: [facility] [address] [place] [address], [address] [place] [address] Office: Orders Orders: Coding Level of Care Code Off vis,new,level 3 Diagnoses History of adenomatous polyp of colon Z86.010 Colitis K52.9 03/15 1050 <Electronically signed by Mehdi Foote MD> Date Mehdi Foote MD Cosigner Signature: Date (if applicable) CC: Samia Dominguez MD 24-Oct-2017 Cardiology Visit Report Result: Comments: See Note; NOTES: [facility] [address] [place] [address] OFFICE VISIT Date of Service: 10/22/17 MR#: [id number] Acct: [id number] Name: MOISES AHUJA Rep #: [id number] : 1935 Provider: Edelmira Zayas Age/Sex: 82/M Location: [facility] Status: Signed HPI HPI Details: MOISES AHUJA, [...] rachial Intake Visit Reasons: 1 Y FU Special Machine Stitcher Required: No Accompanied by: Allergies Penicillins Allergy [...] prior to saving. 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 Cardiovascular Services [address] [place] [address] MR#: [id number] Acct: [id number] Name: MOISES AHUJA Rep #: [id number] : [birth year] 82 From: Tacho Rolle MD [...] 70 %. This note was generated with [employer] software. It may contain incorrect words, spelling, and punctuation that were not noted in checking the note before signing. 10/07/17 17 02 <Electronically signed by Tacho Rolle MD> Date Tacho Rolle MD CC: Samia Dominguez MD Date Dictated: 10/07/171655 Date Transcribed: 10/07/171655 Client Services Manager: PM Signed 07-Oct-2017 Echocardiogram Complete Result: Comments: See Note; NOTES: [facility] Cardiovascular Services [address] [place] [address] Echo Complete 10/07/17 0858 MR#: [id number] Acct: [id number] Name: MOISES AHUJA ep #: [id number] : 1935 82 From: Tacho Rolle MD Attending Dr: Samia Dominguez MD Status: REG CLI Ordering Dr: Samia Dominguez MD Date: 10/07/17 Location: [facility] Sex: M C Admitted: Reason For Praneeth [...] 10/07/17 0858 Date Trans cribed: 10/07/17 1505 Client Services Manager: Signed 29-Jul-2017 Abdomen Single View Result: Comments: See Note; NOTES: [facility] Imaging Services [address] [place] [address] Abdomen Single View MR#: [id number] Acct: [id number] Name: MOISES AHUJA Rep #: [id number] : 1935 82 From: Abdoulaye Garcia MD PCP: Samia Dominguez MD Status: REG CLI Study: Abdomen Single View Date of Exam: 07/29/17 Exam# [id number] Ordering Dr: Samia Dominguez MD STUDY: X-RAY [...] Abdoulaye Garcia MD at 13:01 EDT Tel [phone], Service support , CC: Samia Dominguez MD Client Services Manager: Signed 12-May-2017 PT D/C Summary (1) Result: Comments: See Note; NOTES: [facility] [address] [place] [address] Fax REHABILITATION SERVICES DISCHAR GE SUMMARY MR#: [id number] Acct: [id number] Name: MOISES AHUJA Rep #: [id number] : 1935 82 From: Hang Waller PT, [...] please feel free to call me at [phone]. Thank you for the referral of this patient. Sincerely, Hang Waller, PT, <Electronically signed by Hang Waller PT, ATC&#62 ; 05/12/17 1002 CC: Samia Dominguez MD; Pavel Madsen MD [facility] Signed 09-Apr-2017 Inital Evaluation (1) - PT Result: Comments: See Note; NOTES: [facility] [address] [place], [place] [address] Fax REHABILITATION SERVICES INITIAL EVALUATION MR#: [id number] Acct: [id number] Name: MOISES AHUJA Rep #: [id number] [...] to be FAXED BACK to us at [phone] for Medicare purposes. Please let me know if there are questions or concerns regarding this plan of care. Physician Signature: ____Date: <Electronically signed by Hang Waller PT, ATC> 04/09/17 0758 CC: Samia Dominguez MD; Pavel Madsen MD [facility] Signed For Medicare only , by signing this I certify the plan of care. Physicians Signature Date 05-Nov-2016 Carotid Duplex Ultrasound Result: Comments: See Note; NOTES: [facility] Cardiovascular Services [address] [place] [address] Carotid Duplex Ultrasound 11/01/16 0857 MR#: [id number] Acct: [id number] Name: MOISES HOWARD Rep #: [id number] : 1935 81 From: John Owens MD Attending Dr: Samia Dominguez MD Status: REG CLI Ordering Dr: Samia Dominguez MD Date: 11/01/16 Location: [facility] Sex: M C Admitted: Re ason For [...] the left vertebral artery. Procedure Carotid Duplex 75645. Exam performed in department. 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 Mild (<50%) stenosis left extracranial internal carotid. Flow within the vertebral arteries is antegrade bilaterally. Ordering Physician: Samia Dominguez Referring Physician: Samia Dominguez Performed By: Edyta Aden, RALPH, RVT 11/05/162013 Date John Owens MD CC: Samia Dominguez MD Date Dictated: 11/01/16 0857 Date Transcribed: 11/05/162013 Client Services Manager: Signed 24-Jun-2016 Abdomen/Pelvis WITH Contrast Result: Comments: See Note; NOTES: [facility] Imaging Services [address] [place] [address] Verdana 4d Abdomen/Pelvis WITH Contrast MR#: [id number] Acct: [id number] Name: JOSEPHINE AHUJA Rep #: [id number] : 1935 M 81 From: Rubi Burkett MD PCP: Samia Dominguez MD Status: REG CLI Study: Abdomen/Pelvis WITH Contrast Date of Exam: 06/24/16 Exam# [id number] Ordering Dr: Samia Dominguez MD STUDY: CT [...] at 14:51 EST Tel , Service support [phone], CC: Samia Dominguez MD Client Services Manager: Signed 24-Jun-2016 L/S Spine Min 4 Views Result: Comments: See Note; NOTES: [facility] Imaging Services [address] [place] [address] Verdana 4d L/S Spine Min 4 Views MR#: [id number] Acct: [id number] Name: MOISES AHUJA Rep #: [id number] : 1935 M 81 From: Dionisio Brown MD PCP: Samia Dominguez MD Status: REG CLI Study: L/S Spine Min 4 Views Date of Exam: 06/24/16 Exam# [id number] Ordering Dr: Samia Dominguez MD [facility] DY: X-RAY - LUMBAR SPINE REASON FOR [...] Cortez at 16:43 EST , Service support [phone], CC: Samia Dominguez MD Client Services Manager: Signed 11-Oct-2015 Abdomen WITH IV Contrast Result: Comments: See Note; NOTES: [facility] Imaging Services [address] [place], [place] [address] Verdana 4d Abdomen WITH IV Contrast MR#: [id number] Acct: [id number] Name: MOISES ANDERSON Rep #: [id number] : 1935 80 From: Abdoulaye Garcia MD PCP: Samia Dominguez MD Status: REG CLI Study: Abdomen WITH IV Contrast Date of Exam: 10/11/15 Exam# [id number] Ordering D r: Samia Dominguez MD STUDY: [...] Abdoulaye Garcia MD at 9:34 EDT Tel [phone], Service support [phone], CC: Samia Dominguez MD Client Services Manager: Signed 05-Jul-2015 CTA Head W/WO Contrast Result: Comments: See Note; NOTES: [facility] Imaging Services [address] [place] [address] Verdana 4d CTA Head W/WO Contrast MR#: [id number] Acct: [id number] Name: MOISES HOWARD Rep #: [id number] : 1935 M 80 From: Abdoulaye Garcia MD PCP: Samia Dominguez MD Status: REG CLI Study: CTA Head W/WO Contrast Date of Exam: 07/05/15 Exam# [id number] Ordering Dr: Samia Carreon MD STUDY: CTA [...] There is no demonstrated aneurysm of the [place]. There is no demonstrate d abnormality of the visualized brain. IMPRESSION: Normal [place] without a demonstrated aneurysm or hemodynamically significant stenosis. Electronica lly Signed: Abdoulaye Garcia MD at 8:07 EST Tel [phone], Service support [phone], CC: Samia Dominguez MD Client Services Manager: Signed 05-Jul-2015 CTA Neck W/WO Contrast Result: Comments: See Note; NOTES: [facility] Imaging Services [address] [place] [address] Verdana 4d CTA Neck W/WO Contrast MR#: [id number] Acct: [id number] Name: MOISES HOWARD Rep #: [id number] : 1935 M 80 From: Abdoulaye Garcia MD PCP: Samia Dominguez MD Status: REG CLI Study: CTA Neck W/WO Contrast Date of Exam: 07/05/15 Exam# [id number] Ordering Dr: Samia Carreon MD STUDY: CTA [...] Abdoulaye Garcia MD at 8:06 EST Tel [phone], Service support [phone], CC: Samia Dominguez MD Client Services Manager: Signed 09-Jun-2015 Carotid Duplex Ultrasound Result: Comments: See Note; NOTES: [facility] Cardiovascular Services [address] [place] [address] Carotid Duplex Ultrasound 06/09/15 1012 MR#: [id number] Acct: [id number] Name: MOISES AHUJA Rep #: [id number] : 1935 80 From: Low Hernandez MD Attending Dr: Samia Dominguez MD Status: REG CLI Ordering Dr: Samia Dominguez MD Date: 06/09/15 Location: [facility] Sex: M C Admitted: Rt. Velocities/BP Lt. [...] Lt Vert A. Procedure Caroti d Duplex 32076. Exam performed in department. Interpretation Summary The [...] Date Dictated: 06/09/15 1012 Date Transcribed: 06/09/152201 Client Services Manager: Signed 21-Apr-2015 Emergency Department Summary Result: Comments: See Note; NOTES: [facility] Medical Records Department [address] [place] [address] Emergency Department Summary 04/20/15 2316 MR#: [id number] Acct: [id number] Name: MOISES AHUJA Rep #: [id number] : 1935 80 From: Leo Gunn MD [...] PO TIDPC #30 tablet Primary Care Physician: Saima Dominguez MD [Primary Care Provider] - Prior [...] positional vertigo. Patient did have a positive [place] Hallpike maneuver. An Jimmy maneuver was performed. Patient's i-STAT was did fatigue. He will be observed and ambulated to assure safety prior to discharge. 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 Patient was ambulated and is symptom-free., 4555 ED Disposition - Plan for ED Patient: [...] problems, contact your doctor. Call [facility] ([phone] ) or report to the closest Emergency Room. Call 911 if necessary. 04/21/15 0010 <Electronically signed by Leo Gunn MD> Date Leo Gunn MD Cosigner Signature (If Indicated): Date CC: Gallo Fraser MD; Samia Dominguez MD 14-Apr-2015 PT D/C Summary Result: Comments: See Note; NOTES: [facility] [address] [place] [address]. [address] [place] [address] Fax REHABILITATION SE RVICES DISCHARGE SUMMARY MR#: [id number] Acct: [id number] Name: MOISES AHUJA Rep #: [id number] : 1935 80 From: Ashok Nolasco Referring [...] please feel free to call me at [phone]. Thank you for the referral of this patient. Sincerely, Ashok Nolasco <Electronically jose d by Ashok Nolasco > 04/14/15 0641 CC: Samia Dominguez MD EBG Signed 03-Apr-2015 Inital Evaluation - PT Result: Comments: See Note; NOTES: [facility] [place] [address] Fax REHABILITATION SE RVICES INITIAL EVALUATION MR#: [id number] Acct: [id number] Name: MOISES AHUJA Rep #: [id number] : 1935 80 From: Ashok Nolasco Referring [...] to be FAXED BACK to us at [phone] for Medicare purposes. Please let me know [...] Cont ONLY Result: Comments: See Note; NOTES: [facility] Imaging Services [address] [place] [address] CAT Scan Report MR#: [id number] Acct: [id number] Name: MOISES AHUJA Rep #: [id number] : 1935 M 79 From: Abdoulaye Garcia MD PCP: Samia Dominguez MD Status: REG CLI Study: Abdomen/Pelvis W IV Cont ONLY Date of Exam: 12/08/14 Exam# [id number] Ordering Dr: Samia Dominguez MD STUDY: CT [...] Manish Garcia MD at 13:51 EDT Tel [phone], Service support [phone], CC: Samia Dominguez MD Client Services Manager: Signed 21-Jan-2014 PT Discharge Summary Result: Comments: See Note; NOTES: [facility] [address] [place] [address] Fax REHABILITATION SERVICES DISCHARGE SUMMARY MR#: [id number] Acct: [id number] Name: MOISES AHUJA Rep #: [id number] : 1935 78 From: Ashok Nolasco Referring DrKarl: OUT OF [facility] DOCTOR Status: DIS RCR Eval Date: Discha [...] care. Ashok Nolasco, PT T: NTS JOB: [id number] <Electronically signed by Ashok Nolasco > 01/21/14 0646 CC: Signed 11-Nov-2013 Inital Evaluation - PT Result: Comments: See Note; NOTES: [facility] [address] [place], [place] [address] Fax REHABILITATION SERVICES INITIAL EVALUATION MR#: [id number] Acct: [id number] Name: MOISES AHUJA Rep #: [id number] : 1935 78 From: Ashok Nolasco Referring DrKarl: OUT OF TOWN DOCTOR Status: REG R Insurance: MEDIC ARE PART A B Eval Date: ANTHEM DATE OF SERVICE: 11/10/2013 DIAGNOSIS: Neck strain. REFERRED BY: Jace Jones, physician's assistant guest services manager. SUBJECTIVE: Moises Ahuja is a 78-year-old male, [...] therapy. Ashok Nolasco, PT T: NTS JOB: [id number] <Electronically signed by Ashok Nolasco > 11/11/13 0651 CC: Signed For Medicare only, by signing this I certify the plan of care. Physicians Signature Date 25-Oct-2013 Abdomen/Pelvis WITH Contrast Result: Comments: See Note; NOTES: [facility] Imaging Services [address] [place] [address] CAT Scan Report MR#: [id number] Acct: [id number] Name: MOISES AHUJA Rep #: [id number] : 1935 M 78 From: Harsha Pabon MD PCP: Samia Dominguez MD Status: REG CLI Study: Abdomen/Pelvis WITH Contrast Date of Exam: 10/25/13 Exam# [id number] Ordering Dr: Tacho De Luna MD STUDY: [...] at 19:52 EDT , Service s upport [phone], CC: Samia Dominguez MD; Tacho De Luna MD Client Services Manager: Signed 05-Aug-2013 PT Discharge Summary Result: Comments: See Note; NOTES: [facility] [address] [place] [address] Fax REHABILITATION SERVICES DISCHARGE SUMMARY MR#: [id number] Acct: [id number] Name: MOISES AHUJA Rep #: [id number] : 1935 78 From: Ashok Nolasco Referring [...] doing well and ready to be done [facility] physical therapy. Objectively, he has 50 degrees [...] program. Ashok Nolasco, PT T: MARCEL JOB: [id number] <Electronically s igned by Ashok Nolasco > 08/05/13 0934 CC: Signed 21-Jul-2013 Inital Evaluation - PT Result: Comments: See Note; NOTES: [facility] [address] [place], [place] [address] Fax REHABILITATION SERVICES INITIAL EVALUATION MR#: [id number] Acct: [id number] Name: MOISES AHUJA Rep #: [id number] : 1935 78 From: Ashok Nolasco Referring [...] appropriate home cervical range-of-m otion exercises, scapular trwrj-wt-hphfgh exercises and management of his condition. I [...] . Ashok Nolasco, PT T: MARCEL JOB: [id number] <Electronically signed by Ashok Nolasco > 07/21/13 0740 CC: Signed For Medicare only, by signing this I certify the plan of care. Physicians Signature Date 14-Jul-2013 Dexa Bone Density Study (HP) Result: Comments: See Note; NOTES: [facility] Imaging [address] [address] Bone Density Report MR#: [id number] Acct: [id number] Name: MOISES AHUJA Rep #: [id number] : 1935 78 From: Abdoulaye Garcia MD PCP: Samia Dominguez MD Status: REG CLI Study: Dexa Bone Density Study (HP) Date of Exam: 07/14/13 Exam# [id number] Ordering Dr: Samia Dominguez MD STUDY: DUAL [...] M.D. at 15:48 EDT , Service support [phone], CC: Samia Dominguez MD Client Services Manager: Signed Immunization Name Dates Details Influenza (3 [...] Inactive Vital Signs Date Test Result Details 53-Vkh-632664:00 Pulse 70 /min Comments: Pattern: Regular BP [...] kg/m2 Body Surface Area Calculated 2.03 m2 56-Pzo-495543:21 Temperature 97.9 f Comments: Method: Oral Pulse [...] Description Value Details :30 HgA1C , Office (75648) HgA1C , Office 5.2 % (Normal) Range: 4.6 - 7.1 :47 LIPOPROTEIN, BLD, BY NMR Comments: PATIENT WAS FASTINGPERFORMED BY: BN [facility] [address] [id number] BY: CB [facility] Vldefd4623 [facility] [id number] (32784) LP-IR Score 52 (Abnormal) Comments: INSULIN RESISTANCE MARKER <--Insulin Sensitive Insulin Resistant--> Percentile in Reference PopulationInsulin Resistance ScoreLP-IR Score Low 25th 50th 75th High <27 27 45 63 >63LP-IR Score is inaccurate if patient is non-fasting. .The LP-IR score is a laboratory developed i [facility] that has beenassociated with insulin resistance and [...] 1600 - 2000 Very High > 2000 8-Jan-63278:47 CBC with auto diff Comments: PATIENT WAS FASTINGPERFORMED BY: [employer] [id number] BY: [facility] HospitalZenedySouthern [facility] Medical CenterZpqobp5491 [facility] [id number] (54155) Immature Grans (Abs) 0.0 {x10E3/uL} (Normal) Range: [...] METABOLIC PANEL, Comments: PATIENT WAS FASTINGPERFORMED BY: [employer] [id number] BY: [facility]xSouthern [facility] Medical CenterDctqug8018 [facility] [id number] COMPREHENSIVE (32006) ALT (SGPT) 18 [iU]/L (Normal) Range: 0-44 [...] (Prostate Specific Comments: PATIENT NOT FASTINGPERFORMED BY: [facility]CoPres[facility] HospitalOpqevw6511 [facility] [id number] Antigen), Screening (40054) Prostate Specific Ag, 1.4 ng/mL (Normal) Range: 0.0-4.0 Serum Comments: [employer] ECLIA methodology. .According to the [employer], Serum PSA shoulddecrease and remain [...] 10/21/17Order Info: 0184-1 - CBCDComments: statOrder Info: 19453-2 - [facility] [address] [place], [place], [id number] Absolute Lymph 1.20 {X10_3/ul} (Normal) Range: 0.83-4.51 [...] Date: 10/21/17Order Info: 0786-1 - CMPOrder Info: 00940-5 - CRPComments: statComments: [facility] [address] [place], [place], [id number] GAP 9 (Normal) Range: 5-15 CO2 30.0 [...] Comments: Please note revised GLUCOSE reference range sdqshzitj11/02/2018. 34-Axh-979928:03 Erythrocyte Sed Rate Comments: Order Date: 10/21/17Order Info: [id number] - CBCDComments: statOrder Info: [id number] - [facility] Pihamzygov0791 Rc [place], [place], [id number] SED RATE 8 mm/h (Normal) Range: 0-20 20-She-673356:03 C-REACTIVE PROTEIN (68874) Comments: stat; Order Date: 10/21/17Order Info: [id number] - CMPOrder Info: [id number] - CRPComments: statComments: [facility] Redxdxdydd8865 JAMES [place], [address] C-REACTIVE PROT 30.20 mg/L (Abnormal) Range: 0.0-3.0 Comments: C-Reactive Protein (CRP) provides useful information for thediagnosis, therapy and monitoring of inflammatory processesand associated diseases. For the evaluation of Relative Riskfor Cardiovascular Dise ase, a High Sensitivity CRP (HSCRP)should be ordered. 12-Jwn-371464:25 Clostridium difficile Toxin Comments: PATIENT NOT FASTINGPERFORMED BY: [facility] [id number] A+B, EIA (29128) C difficile Toxins A+B, EIA Positive (Abnormal) 85-Pqy-209436:25 AMADA CULTURE-STOOL (49428) Comments: PATIENT NOT FASTINGPERFORMED BY: The Hitch6370 [facility] [id number] Information: SRC:ST SRC:ST E coli Shiga Toxin EIA Negative (Normal) Result 1 NCI (Normal) Comments: No Campylobacter species isolated. Campylobacter Culture Final report (Normal) Result 1 NSS (Normal) Comments: No Salmonella or Shigella recovered. Salmonella/Shigella Screen Final report (Normal) 41-Vxe-977883:03 TSH (23623) Comments: PATIENT NOT FASTINGPERFORMED BY: Validus-IVC Fczyve0022 [facility] [id number] TSH 2.980 {uIU/mL} (Normal) Range: 0.450-4.500 59-Sgj-898393:03 Metabolic Panel, Basic Comments: PATIENT NOT FASTINGPERFORMED BY: Validus-IVC Ebrddt6645 [facility] [id number] (16273) Calcium 9.5 mg/dL (Normal) Range: 8.6-10.2 Carbon [...] 8-27 Glucose 91 mg/dL (Normal) Range: 65-99 70-Cnp-118085:03 CBC with auto diff (46431) Comments: PATIENT NOT FASTINGPERFORMED BY: LabCo Uzrmin7961 [facility] [id number] Immature Grans (Abs) 0.0 {x10E3/uL} (Normal) Range: [...] (Normal) Range: 3.4-10.8 :34 HgA1C , Office (29628) HgA1C , Office 5.4 % (Normal) Range: 4.6 - 7.1 15-Pvy-809981:56 Rapid Flu (12588 x 2) Influenza A Ag Negative (Normal) :21 FERRITIN (80311) Comments: PATIENT NOT FASTINGPERFORMED BY: TolerxSouthern Ocean Medical CenterTxxvhn6588 [facility] [id number] Ferritin, Serum 139 ng/mL (Normal) Range: 30-400 18-Kie-430690:21 HEPATITIS PANEL (20500) Comments: PATIENT NOT FASTINGPERFORMED BY: [facility] Clare6370 [facility] [id number] Hep C Virus Ab <0.1 {s/co_ratio} (Normal) Range: 0.0-0.9 Comments: Negative: < 0.8 Indeterminate: 0.8 - 0.9 Positive: > 0.9 . The CDC recommends that a positive HCV antibody result be followed up with a HCV Nucleic Acid Amplification test (391651). Hep B Core Ab, IgM Negative (Normal) HBsAg Screen Negative (Normal) Hep A Ab, IgM Negative (Normal) :21 HEPATIC FUNCTION PANEL Comments: PATIENT NOT FASTINGPERFORMED BY: [place] 7910570 [facility] [id number] (29852) ALT (SGPT) 33 [iU]/L (Normal) Range: 0-44 AST (SGOT) 23 [iU]/L (Normal) Range: 0-40 Alkaline Phosphatase, S 68 [iU]/L (Normal) Range: 39-117 Bilirubin, Direct 0.11 mg/dL (Normal) Range: 0.00-0.40 Bilirubin, Total 0.4 mg/dL (Normal) Range: 0.0-1.2 Albumin, Serum 4.2 g/dL (Normal) Range: 3.5-4.7 Protein, Total, Serum 7.4 g/dL (Normal) Range: 6.0-8.5 :22 HgA1C , Office (19887) HgA1C , Office 5.2 % (Normal) Range: 4.6 - 7.1 :18 AMADA CULTURE-OTHER (88345) Comments: PATIENT NOT FASTINGPERFORMED BY: Tolerx Tnfhbd8203 [facility] [id number] Information: SRC:TH Result 1 RRF (Normal) Comments: Routine respiratory jose antonio Upper Respiratory Culture Final report (Normal) :21 Rapid Strep Test, Office (13952) Rapid Strep Test, Office Negative (Normal) 48-Hlr-49125:40 Microscopic Examination Comments: PATIENT WAS FASTINGPERFORMED BY: GridAnts[address] [id number] BY: Validus-IVC Xdjpdn9299 [facility] [id number] Bacteria None seen (Normal) Mucus Threads Present (Normal) Epithelial Cells (non renal) None seen {/hpf} (Normal) Range: 0 - 10 RBC 0-2 {/hpf} (Normal) Range: 0 - 2 WBC 0-5 {/hpf} (Normal) Range: 0 - 5 50-Wss-36198:19 AMADA CULTURE-OTHER (22095) Comments: PATIENT NOT FASTINGPERFORMED BY: Tolerx T[address] [place] [address] [id number] Information: SRC:TH Result 1 RRF (Normal) Comments: Routine respiratory jose antonio Upper Respiratory Culture Final report (Normal) 73-Ely-819194:27 Rapid Strep Test, Office (68094) Rapid Strep Test, Office Negative (Normal) 23-Hrj-17994:40 URINALYSIS, W/ MICRO Comments: PATIENT WAS FASTINGPERFORMED BY: GridAnts[address] [id number] BY: Validus-IVC Lppcrw[address] [place] [address] [id number] (46007) Microscopic Examination See below: (Normal) Comments: Microscopic was indicated and was performed. Nitrite, Urine Negative (Normal) Urobilinogen,Semi-Qn 0.2 mg/dL (Normal) Range: 0.2-1.0 Bilirubin Negative (Normal) Occult Blood Negative (Normal) Ketones Negative (Normal) Glucose Negative (Normal) Protein Negative (Normal) WBC Esterase Trace (Abnormal) Appearance Clear (Normal) Urine-Color Yellow (Normal) pH 6.0 (Normal) Range: 5.0-7.5 Specific [place] 1.023 (Normal) Range: 1.005-1.030 :40 METABOLIC PANEL, Comments: PATIENT WAS FASTINGPERFORMED BY: BN [facility] Egdzqnyubq7955 [facility] [id number] BY: CB [facility] Qegctb9122 [facility] [id number] COMPREHENSIVE (02938) ALT (SGPT) 50 [iU]/L (Abnormal) Range: 0-44 [...] Comments: PATIENT WAS FASTINGPERFORMED BY: BN [facility] Mlijxftbnh5314 [facility] [id number] BY: CB [facility] Rfzswx1670 Theo [facility] [id number] (23274) LP-IR Score 64 (Abnormal) Comments: INSULIN RESISTANCE MARKER <--Insulin Sensitive Insulin Resistant--> Percentile in Reference PopulationInsulin Resistance ScoreLP-IR Score Low 25th 50th 75th High <27 27 45 63 >63LP-IR Score is inaccurate if patient is non-fasting. .The LP-IR score is a laboratory developed i [facility] that has beenassociated with insulin resistance and [...] 1600 - 2000 Very High > 2000 92-Uhl-01214:40 CBC with auto diff Comments: PATIENT WAS FASTINGPERFORMED BY: BN [facility] [address] [id number] BY: CB [facility] Zysjlg0866 [facility] [id number] (88822) Immature Grans (Abs) 0.0 {x10E3/uL} (Normal) Range: [...] 4.9 {x10E3/uL} (Normal) Range: 3.4-10.8 :40 CALCIFIDIOL (17577) VIT D Comments: PATIENT WAS FASTINGPERFORMED BY: [employer] [address] [id number] BY: [employer] Prrifz3240 [facility] [id number] 25 Vitamin D, 25-Hydroxy 34.5 ng/mL (Normal) Range: 30.0-100.0 Comments: Vitamin D deficiency has been defined by the Metter ofPromedica Memorial Hospitalcine and an Endocrine Society practice guideline as alevel of serum 25-OH vitamin D less than 20 ng/mL (1,2).The Endocrine Society went on to further define vitamin Dinsufficiency as a level between 21 and 29 ng/mL (2).1. IOM (Metter of Medicine). 2010. Dietary reference intakes for calcium and D. [place]: The National Academies Press.2. Fernando MF, Cedric AGUIAR, Teresa ALBERTS, et al. Evaluation, treatment, and prevention of vitamin D deficiency: an Endocrine Society clinical practice guideline. JCEM. 2010; 96(7):1911-30. :40 serum immunofixation (85528) Comments: PATIENT WAS FASTINGPERFORMED BY: GridAnts[address] [id number] BY: Validus-IVCSouthern Ocean Medical CenterQhdejp5581 [facility] [id number] Immunoglobulin M, Qn, Serum 107 mg/dL (Normal) Range: 15-143 Immunoglobulin A, Qn, Serum 503 mg/dL (Abnormal) Range: 61-437 Immunoglobulin G, Qn, Serum 1199 mg/dL (Normal) Range: 700-1600 Immunofixation Result, Serum UPEIP (Normal) Comments: No monoclonality detected. :18 Metabolic Panel, Comprehensive Comments: PATIENT WAS FASTINGPERFORMED BY: Entelos70 Ven[address] [facility] [id number] (39431) ALT (SGPT) 25 [iU]/L (Normal) Range: 0-44 [...] CREATININE RATIO Comments: PATIENT WAS FASTINGPERFORMED BY: Entelos70 [facility] [id number] (23849) AND (90387) Microalb/Creat Ratio 5.6 {mg/g_creat} (Normal) Range: 0.0-30.0 Microalbumin, Urine 9.6 ug/mL (Normal) Creatinine, Urine 172.5 mg/dL (Normal) 9-Alex-14042:18 URINALYSIS (23350) Comments: PATIENT WAS FASTINGPERFORMED BY: The Hitch6370 [address] [facility] [id number] Microscopic Examination MICNIP (Normal) Comments: Microscopic not indicated and not performed. Nitrite, Urine Negative (Normal) Urobilinogen,Semi-Qn 0.2 mg/dL (Normal) Range: 0.2-1.0 Bilirubin Negative (Normal) Occult Blood Negative (Normal) Ketones Negative (Normal) Glucose Negative (Normal) Protein Negative (Normal) WBC Esterase Negative (Normal) Appearance Clear (Normal) Urine-Color Yellow (Normal) pH 7.0 (Normal) Range: 5.0-7.5 Specific [place] 1.020 (Normal) Range: 1.005-1.030 :18 CBC WITH MANUAL DIFF Comments: PATIENT WAS FASTINGPERFORMED BY: The Hitch6370 Veneg[address] [facility] [id number] Information: NURSE DRAW; fu 6-26 db (50812) Immature Grans (Abs) 0.0 {x10E3/uL} (Normal) Range: [...] {x10E3/uL} (Normal) Range: 3.4-10.8 :57 C-REACTIVE PROTEIN (95659) Comments: PATIENT NOT FASTINGPERFORMED BY: [facility]6370 [facility] [id number] C-Reactive Protein, Quant 0.7 mg/L (Normal) Range: 0.0-4.9 :57 ESR-F (SED RATE ERYTHROCYTE - Comments: PATIENT NOT FASTINGPERFORMED BY: [facility]6370 [facility] [id number] MALE) (75512) Sedimentation Rate-Westergren 5 mm/h (Normal) Range: 0-30 45-Zhz-103745:01 PSA,Total- Diagnostic Comments: [facility] Rcpvgllpic9853 R[address] [place], [place], [address] PSA, DIAGNOSTIC 1.09 ng/mL (Normal) Range: 0.0-4.0 Comments: This test was performed using the TPSA assay method for the[employer] chemistry system. Values obtained with differentassay methods cannot be used interchangably.When changing PSA assays in the course of monitoring apatient, additional sequential testing should be carriedout to confirm baseline values. 56-Bcx-771274:29 HgA1C , Office (23371) HgA1C , Office 5.2 % (Normal) Range: 4.6 - 7.1 :03 serum immunofixation (34285) Comments: PATIENT NOT FASTINGPERFORMED BY: [facility]6370 [facility] [id number] Information: NURSE DRAW Immunoglobulin M, Qn, Serum 115 mg/dL (Normal) Range: 15-143 Immunoglobulin A, Qn, Serum 504 mg/dL (Abnormal) Range: 61-437 Immunoglobulin G, Qn, Serum 1218 mg/dL (Normal) Range: 700-1600 Immunofixation Result, Serum UPEIP (Normal) Comments: No monoclonality detected. :03 Vitamin B-12 (cyanocobalamin) Comments: PATIENT NOT FASTINGPERFORMED BY: The Hitch6370 [address]egas RoadDublin [place] [id number] (75916) Vitamin B12 1249 pg/mL (Abnormal) Range: 211-946 :42 Microscopic Examination Comments: PATIENT WAS FASTINGPERFORMED BY: TolerxKenneth Ville [address] [facility] [id number] BY: [employer]iox BABADUblin [place] [id number] Bacteria None seen (Normal) Mucus Threads Present (Normal) Epithelial Cells (non renal) None seen {/hpf} (Normal) Range: 0 - 10 RBC 0-2 {/hpf} (Normal) Range: 0 - 2 WBC 0-5 {/hpf} (Normal) Range: 0 - 5 :24 PSA (PROSTATE SPECIFIC Comments: copy to Dr. de luna; PATIENT WAS FASTINGPERFORMED BY: The Hitch63Bullitt Groupblin [place] [id number] ANTIGEN) (V76.44) Prostate Specific Ag, 1.1 ng/mL (Normal) Range: 0.0-4.0 Serum Comments: [employer] ECLIA methodology. .According to the [place] [employer], Serum PSA shoulddecrease and remain at undetectable levels after radicalprostatectomy. The AUA defines biochemical recurrence as an initialPSA value 0.2 ng/mL or greater followed by a subsequent confirmatoryPSA value 0.2 ng/mL or greater.Values obtained with d ifferent assay methods or kits cannot be usedinterchangeably. Results cannot be interpreted as absolute evidenceof the presence or absence of malignant disease. :25 MAGNESIUM (93365) Comments: PATIENT WAS FASTINGPERFORMED BY: The Hitch6370 Ven[address] [place] UKDublin [place] [id number] Magnesium, Serum 2.3 mg/dL (Normal) Range: 1.6-2.3 36-Roo-27053:25 Vitamin B-12 (cyanocobalamin) Comments: PATIENT WAS FASTINGPERFORMED BY: ADRIANA [facility] Tbugzu3059 Theo [facility]legh[facility] [id number]; fu 3-24 db (24928) Vitamin B12 1271 pg/mL (Abnormal) Range: 211-946 6-Wwj-220462:06 Prostate-Specific Ag, Serum Comments: PATIENT NOT FASTINGPERFORMED BY: [facility] Yovwlc3748 [facility] HospitalMosheAllegh[facility] [id number] Information: [id number], 056708 Prostate Specific Ag, 0.9 ng/mL (Normal) Range: 0.0-4.0 Serum Comments: [employer]affleIA methodology. .According to the [place] [employer], Serum PSA shoulddecrease and remain [...] WAR (Normal) Comments: PATIENT NOT FASTINGPERFORMED BY: PlaxicaCo Niruzg7710 [facility] [id number] 2:06 Comments: Written Authorization Received.Authorization received from ABDIEL DUTTA LPN 35-83-2533Hjwstj by Megan Oneill 5-Kpt-600775:06 [facility] (81319) Comments: PATIENT NOT FASTINGPERFORMED BY: [facility] Tnewei0054 [facility] [id number] Information: [id number], 019315; fu 3-24 Please note: SPRCS (Normal) Comments: Protein electrophoresis scan will follow via computer, mail, orcourier delivery. A/G Ratio 0.9 (Normal) Range: 0.7-1.7 Globulin, Total 3.8 g/dL (Normal) Range: 2.2-3.9 M-Gagandeep Not Observed g/dL (Normal) Gamma Globulin 1.5 g/dL (Normal) Range: 0.4-1.8 Beta Globulin 1.4 g/dL (Abnormal) Range: 0.7-1.3 Gcjjh-4-Sxonqzba 0.8 g/dL (Normal) Range: 0.4-1.0 Rehbr-4-Qxuqkscr 0.2 g/dL (Normal) Range: 0.0-0.4 Albumin 3.6 g/dL (Normal) Range: 2.9-4.4 Protein, Total, Serum 7.4 g/dL (Normal) Range: 6.0-8.5 67-Avx-614043:26 Amylase Comments: [facility] Yljnygnqcw6163 [facility] [address] [place], [place], [address](385) RONY 52 U/L (Normal) Range: 25-115 95-Mka-419920:26 CBC W/Diff, Automated Comments: [facility] Uqzxwzrzwo0076 [facility]. [place], [place], [address](814) Absolute Lymph 1.93 {X10_3/ul} (Normal) Range: 0.83-4.51 [...] 4.6-6.2 WBC 7.0 K/mm3 (Normal) Range: 4.4-11.0 90-Rsu-308336:26 Comprehensive Metabolic Profil Comments: [facility] Nmssxzlbph86[address] [employer] [place], [place], [id number] GAP 7 (Normal) Range: 5-15 CO2 30.0 [...] 7-18 GLU 89 mg/dL (Normal) Range: 70-110 89-Jvr-991218:26 Culture, Urine Comments: [facility] Hgxmfadvda2211 [address] [employer]. [place], [place], [id number] CUUR See Note (Normal) Comments: Urine CultureCulture exhibits no growth. 57-Oaa-621949:26 Lipase Comments: [facility] Pyppsislni2450 [address] [place], [address] LIPASE 205 U/L (Normal) Range: 73-393 48-Nze-886590:56 URINE AMADA CULTURE-IDENTIFICATN Comments: PATIENT NOT FASTINGPERFORMED BY: LabCo[address] [id number] Information: SRC:UC (38543) Result 1 NG36 (Normal) Comments: No growth in 36 - 48 hours. Urine Culture,Comprehensive Final report (Normal) 97-Bgw-302370:22 Urinalysis, Office (29590) UA - LEUKOCYTE ESTERASE Negative (Normal) UA - NITRITE Negative (Normal) URINE UROBILINGN RENÉE TIMED Normal mg/dL (Normal) UA - PROTEIN Negative mg/dL (Normal) UA - PH 6 (Abnormal) UA - BLOOD Negative (Normal) UA - SPECIFIC GRAVITY 1.005 (Normal) UA - KETONES Negative mg/dL (Normal) UA - BILIRUBIN Negative (Normal) UA - GLUCOSE Negative (Normal) 66-Kxk-60880:42 CALCIFIDIOL (33515) VIT D Comments: PATIENT WAS FASTINGPERFORMED BY: PlaxicaSarah Ville [address] [facility] [id number] BY: LabCoSouthern Ocean Medical CenterExevrl0486 [facility] [id number] 25 Vitamin D, 25-Hydroxy 30.1 ng/mL (Normal) Range: 30.0-100.0 Comments: Vitamin D deficiency has been defined by the Metter ofMedicine and an Endocrine Society practice guideline as alevel of serum 25-OH vitamin D less than 20 ng/mL (1,2).The Endocrine Society went on to further define vitamin Dinsufficiency as a level between 21 and 29 ng/mL (2).1. IOM (Metter of Medicine). 2010. Dietary reference intakes for calcium and D. [place]: The National Academies Press.2. Fernando MF, Cedric NC, Teresa ALBERTS, et al. Evaluation, treatment, and prevention of vitamin D deficiency: an Endocrine Society clinical practice guideline. JCEM. 2010; 96(7):1911-30. :42 URINALYSIS, W/ MICRO Comments: PATIENT WAS FASTINGPERFORMED BY: Plaxica[address] [id number] BY: [place] 7910570 [facility] [id number] (20762) Microscopic Examination See below: (Normal) Comments: Microscopic was indicated and was performed. Microscopic Examination MICRON (Normal) Comments: Microscopic follows if indicated. Nitrite, Urine Negative (Normal) Urobilinogen,Semi-Qn 0.2 mg/dL (Normal) Range: 0.2-1.0 Bilirubin Negative (Normal) Occult Blood Negative (Normal) Ketones Negative (Normal) Glucose Negative (Normal) Protein Negative (Normal) WBC Esterase Negative (Normal) Appearance Clear (Normal) Urine-Color Yellow (Normal) pH 6.0 (Normal) Range: 5.0-7.5 Specific [place] 1.021 (Normal) Range: 1.005-1.030 :42 METABOLIC PANEL, Comments: PATIENT WAS FASTINGPERFORMED BY: Tolerx[address] [id number] BY: TolerxSarah V[place] 1041070 [facility] [id number] COMPREHENSIVE (06523) ALT (SGPT) 22 [iU]/L (Normal) Range: 0-44 [...] Glucose, Serum 96 mg/dL (Normal) Range: 65-99 56-Lpx-20385:42 LIPOPROTEIN, BLD, BY NMR Comments: PATIENT WAS FASTINGPERFORMED BY: BN [facility] Htzocfkexf0265 [facility] [id number] BY: CB [facility] Airjbk5000 [facility] [id number] (84528) LP-IR Score 46 (Abnormal) Comments: INSULIN RESISTANCE MARKER <--Insulin Sensitive Insulin Resistant--> Percentile in Reference PopulationInsulin Resistance ScoreLP-IR Score Low 25th 50th 75th High <27 27 45 63 >63LP-IR Score is inaccurate if patient is non-fasting. .The LP-IR score is a laboratory developed i [facility] that has beenassociated with insulin resistance and [...] were developed and their performance characteristicsdetermined by Ku. These assays have not been cleared by [...] 1600 - 2000 Very High > 2000 49-Bpw-18214:42 CBC with auto diff Comments: PATIENT WAS FASTINGPERFORMED BY: BN [facility] [address] [id number] BY: CB [facility] Vhbhwt0514 [facility] [id number]; fu 3-24 (93129) Immature Grans (Abs) 0.0 {x10E3/uL} (Normal) Range: [...] (Normal) Range: 3.4-10.8 :59 HgA1C , Office (90726) HgA1C , Office 5.4 % (Normal) Range: 4.6 - 7.1 :55 Metabolic Panel, Basic Comments: now before CT; PATIENT NOT FASTINGPERFORMED BY: LabMymichigan Medical Center Clare6370 [facility] [id number] Information: [id number] (27638) Calcium, Serum 9.4 mg/dL (Normal) Range: 8.6-10.2 [...] Comments: PATIENT WAS FASTINGPERFORMED BY: BN [facility] Fjchwhvxhn8595 [facility] [id number] BY: CB [facility] Vrcwbv2028 [facility] [id number] Information: [id number], [id number]; fu 9-26 DB (20918) LP-IR Score 44 (Normal) Comments: INSULIN RESISTANCE MARKER <--Insulin Sensitive Insulin Resistant--> Percentile in Reference PopulationInsulin Resistance ScoreLP-IR Score Low 25th 50th 75th High <27 27 45 63 >63LP-IR Score is inaccurate if patient is non-fasting. .The LP-IR score is a laboratory developed i [facility] that has beenassociated with insulin resistance and [...] were developed and their performance characteristicsdetermined by [employer]. These assays have not been cleared by [...] 1600 - 2000 Very High > 2000 33-Eau-18382:42 METABOLIC PANEL, Comments: PATIENT WAS FASTINGPERFORMED BY: [facility] [address] [id number] BY: [facility] Swntko5739 [facility] [id number] COMPREHENSIVE (05468) ALT (SGPT) 18 [iU]/L (Normal) Range: 0-44 [...] Glucose, Serum 92 mg/dL (Normal) Range: 65-99 41-Phk-58715:42 CBC with auto diff Comments: PATIENT WAS FASTINGPERFORMED BY: BN [facility] [address] [id number] BY: CB [facility] Ojhldf3064 [facility] [id number] (19225) Immature Grans (Abs) 0.0 {x10E3/uL} (Normal) Range: [...] Microscopic Examination Comments: PATIENT NOT FASTINGPERFORMED BY: The Hitch6370 Hashdocin [place] [id number] Bacteria None seen (Normal) Mucus Threads Present (Normal) Epithelial Cells (non renal) None seen {/hpf} (Normal) Range: 0 - 10 RBC 0-2 {/hpf} (Normal) Range: 0 - 2 WBC 0-5 {/hpf} (Normal) Range: 0 - 5 :48 PSA (PROSTATE SPECIFIC Comments: PATIENT NOT FASTINGPERFORMED BY: The Hitch6370 [facility]IBAllegh[facility] [id number] ANTIGEN) (V76.44) Prostate Specific Ag, 0.9 ng/mL (Normal) Range: 0.0-4.0 Serum Comments: Teresa ECLIA methodology. .According to the [place] [employer], Serum PSA shoulddecrease and remain at undetectable levels after radicalprostatectomy. The AUA defines biochemical recurrence as an initialPSA value 0.2 ng/mL or greater followed by a subsequent confirmatoryPSA value 0.2 ng/mL or greater.Values obtained with d ifferent assay methods or kits cannot be usedinterchangeably. Results cannot be interpreted as absolute evidenceof the presence or absence of malignant disease. :48 CALCIFIDIOL (70771) VIT D 25 Comments: PATIENT NOT FASTINGPERFORMED BY: The Hitch6370 PlayerProUnc Health [facility] [place]in [place] [id number] Vitamin D, 25-Hydroxy 31.1 ng/mL (Normal) Range: 30.0-100.0 Comments: Vitamin D deficiency has been defined by the Metter ofMedicine and an Endocrine Society practice guideline as alevel of serum 25-OH vitamin D less than 20 ng/mL (1,2).The Endocrine Society went on to further define vitamin Dinsufficiency as a level between 21 and 29 ng/mL (2).1. IOM (Metter of Medicine). 2010. Dietary reference intakes for calcium and D. [place]: The National Academies Press.2. Fernando MF, Cedric AGUIAR, Teresa ALBERTS, et al. Evaluation, treatment, and prevention of vitamin D deficiency: an Endocrine Society clinical practice guideline. JCEM. 2010; 96(7):1911-30. :48 URINALYSIS, W/ MICRO (49704) Comments: PATIENT NOT FASTINGPERFORMED BY: Entelos70 [facility]docSaint [facility] [id number] Microscopic Examination See below: (Normal) Comments: Microscopic was indicated and was performed. Microscopic Examination MICRON (Normal) Comments: Microscopic follows if indicated. Nitrite, Urine Negative (Normal) Urobilinogen,Semi-Qn 0.2 mg/dL (Normal) Range: 0.2-1.0 Bilirubin Negative (Normal) Occult Blood Negative (Normal) Ketones Negative (Normal) Glucose Negative (Normal) Protein Trace (Normal) WBC Esterase Negative (Normal) Appearance Clear (Normal) Urine-Color Yellow (Normal) pH 7.0 (Normal) Range: 5.0-7.5 Specific [place] 1.025 (Normal) Range: 1.005-1.030 :48 METABOLIC PANEL, COMPREHENSIVE Comments: PATIENT NOT FASTINGPERFORMED BY: The Hitch6370 VenegasRF BiocidicsAtrium Health Cabarrus [id number] (50945) ALT (SGPT) 18 [iU]/L (Normal) Range: 0-44 [...] mg/dL (Normal) Range: 65-99 :48 LIPID PANEL (64454) Comments: PATIENT NOT FASTINGPERFORMED BY: Ifbyphone [facility] CallAppox Tiscali UKAtrium Health Cabarrus [id number] LDL/HDL Ratio 2.1 {ratio_units} (Normal) Range: 0.0-3.6 [...] Range: 100-199 :48 CBC with auto diff (40019) Comments: PATIENT NOT FASTINGPERFORMED BY: Ifbyphone [facility] Iklnxn1256 [facility] [id number]; [address] Immature Grans (Abs) 0.0 {x10E3/uL} [...] {x10E3/uL} (Normal) Range: 3.4-10.8 03-Jan-20158:20 LIPID PANEL (10734) Comments: PATIENT WAS FASTINGPERFORMED BY: [facility]CoSouthern [facility] CenterXizoxo7446 [facility] [id number] Information: [id number]; non-emergent till apt LDL/HDL Ratio 2.3 {ratio_units} [...] Cholesterol, Total 129 mg/dL (Normal) Range: 100-199 78-Hty-925182:02 CBC-Complete Blood Cnt No Diff Comments: Test performed at:[facility] [address] [place] [address] MPV 9.7 fL (Normal) Range: [...] 4.6-6.2 WBC 5.7 K/mm3 (Normal) Range: 4.4-11.0 71-Biy-131263:02 Comprehensive Metabolic Profil Comments: Test performed at:[facility] [address] [place], [place] [address] GAP 4 (Abnormal) Range: 5-15 CO2 30.0 [...] Comments: Please note revised CREATININE reference range vncoqfgds34/22/2015. BUN 16 mg/dL (Normal) Range: 7-18 GLU 100 mg/dL (Normal) Range: 70-110 90-Oqu-593993:02 Erythrocyte Sed Rate Comments: Test performed at:[facility] [address] [place], [place] [id number] SED RATE 9 mm/h (Normal) Range: 0-20 44-Kqd-75637:50 Urinalysis, Office (72407) UA - LEUKOCYTE ESTERASE Negative (Normal) UA - NITRITE Negative (Normal) URINE UROBILINGN RENÉE TIMED 2 mg/dL (Normal) UA - PROTEIN Negative mg/dL (Normal) UA - PH 5.0 (Normal) UA - BLOOD Negative (Normal) UA - SPECIFIC GRAVITY 1.015 (Normal) UA - KETONES Negative mg/dL (Normal) UA - BILIRUBIN Negative (Normal) UA - GLUCOSE Negative (Normal) 54-Xij-399724:04 HgA1C , Office (91419) HgA1C , Office 5.6 % (Normal) Range: 4.6 - 7.1 :04 Blood Glucose , Office (14467) Blood Glucose , Office 124 (Normal) :35 Microscopic Examination Comments: PATIENT WAS FASTINGPERFORMED BY: [facility] Vuxvro1466 [facility] [id number] Bacteria None seen (Normal) Mucus Threads Present (Normal) Epithelial Cells (non renal) None seen {/hpf} (Normal) Range: 0 - 10 RBC 0-2 {/hpf} (Normal) Range: 0 - 2 WBC 0-5 {/hpf} (Normal) Range: 0 - 5 :35 CALCIFIDIOL (16062) VIT D 25 Comments: PATIENT WAS FASTINGPERFORMED BY: [employer] Fbanpb7428 [facility] [id number] Vitamin D, 25-Hydroxy 29.1 ng/mL (Abnormal) Range: 30.0-100.0 Comments: Vitamin D deficiency has been defined by the Metter ofMedicine and an Endocrine Society practice guideline as alevel of serum 25-OH vitamin D less than 20 ng/mL (1,2).The Endocrine Society went on to further define vitamin Dinsufficiency as a level between 21 and 29 ng/mL (2).1. IOM (Metter of Medicine). 2010. Dietary reference intakes for calcium and D. [place]: The National Academies Press.2. Fernando MF, Cedric AGUIAR, Teresa ALBERTS, et al. Evaluation, treatment, and prevention of vitamin D deficiency: an Endocrine Society clinical practice guideline. JCEM. 2010; 96(7):1911-30. :35 URINALYSIS, W/ MICRO (59782) Comments: PATIENT WAS FASTINGPERFORMED BY: Seiratherm6370 [facility] [id number] Microscopic Examination See below: (Normal) Comments: Microscopic was indicated and was performed. Microscopic Examination MICRON (Normal) Comments: Microscopic follows if indicated. Nitrite, Urine Negative (Normal) Urobilinogen,Semi-Qn 0.2 mg/dL (Normal) Range: 0.0-1.9 Bilirubin Negative (Normal) Occult Blood Negative (Normal) Ketones Negative (Normal) Glucose Negative (Normal) Protein Negative (Normal) WBC Esterase Negative (Normal) Appearance Clear (Normal) Urine-Color Yellow (Normal) pH 7.5 (Normal) Range: 5.0-7.5 Specific [place] 1.023 (Normal) Range: 1.005-1.030 :35 METABOLIC PANEL, COMPREHENSIVE Comments: PATIENT WAS FASTINGPERFORMED BY: [employer] Dqlnvl3752 [facility] [id number] (95440) ALT (SGPT) 22 [iU]/L (Normal) Range: 0-44 [...] mg/dL (Normal) Range: 65-99 27-Jun-20149:35 LIPID PANEL (41795) Comments: PATIENT WAS FASTINGPERFORMED BY: [facility]6370 [facility] [id number] LDL/HDL Ratio 2.5 {ratio_units} (Normal) Range: 0.0-3.6 [...] DIFF WBC Comments: PATIENT WAS FASTINGPERFORMED BY: [facility]CoSouthern [facility] Medical CenterDfmiqj3567 [facility] [id number] Information: [id number] (24882) Immature Grans (Abs) 0.0 {x10E3/uL} (Normal) Range: [...] (Normal) Range: 3.4-10.8 :58 HgA1C , Office (87602) HgA1C , Office 5.5 % (Normal) Range: 4.6 - 7.1 :58 Blood Glucose , Office (75590) Blood Glucose , Office 107 (Normal) :33 PSA (PROSTATE SPECIFIC Comments: PATIENT WAS FASTINGPERFORMED BY: [employer] Hitch[address] [facility] [place] [id number] ANTIGEN) (V76.44) Prostate Specific Ag, 0.8 ng/mL (Normal) Range: 0.0-4.0 Serum Comments: WaffleIA methodology. .According to the [place] [employer], Serum PSA shoulddecrease and remain at undetectable levels after radicalprostatectomy. The AUA defines biochemical recurrence as an initialPSA value 0.2 ng/mL or greater followed by a subsequent confirmatoryPSA value 0.2 ng/mL or greater.Values obtained with d ifferent assay methods or kits cannot be usedinterchangeably. Results cannot be interpreted as absolute evidenceof the presence or absence of malignant disease. :33 CALCIFIDIOL (24640) VIT D 25 Comments: PATIENT WAS FASTINGPERFORMED BY: [employer] Olmjwr6992 [address] [facility] [place] [id number] Vitamin D, 25-Hydroxy 33.6 ng/mL (Normal) Range: 30.0-100.0 Comments: Vitamin D deficiency has been defined by the Metter ofMedicine and an Endocrine Society practice guideline as alevel of serum 25-OH vitamin D less than 20 ng/mL (1,2).The Endocrine Society went on to further define vitamin Dinsufficiency as a level between 21 and 29 ng/mL (2).1. IOM (Metter of Medicine). 2010. Dietary reference intakes for calcium and D. [place]: The National Academies Press.2. Fernando MF, Cedric [place], Teresa ALBERTS, et al. Evaluation, treatment, and prevention of vitamin D deficiency: an Endocrine Society clinical practice guideline. JCEM. 2010; 96(7):1911-30. :33 METABOLIC PANEL, COMPREHENSIVE Comments: PATIENT WAS FASTINGPERFORMED BY: [employer] Kpugls7383 [address] [facility] [place] [id number] (53451) ALT (SGPT) 32 [iU]/L (Normal) Range: 0-44 [...] mg/dL (Normal) Range: 65-99 :33 LIPID PANEL (02350) Comments: PATIENT WAS FASTINGPERFORMED BY: [facility]CoSouthern [facility] Medical CenterGmqvfp5644 [facility] [id number] LDL/HDL Ratio 2.4 {ratio_units} (Normal) Range: 0.0-3.6 [...] MANUAL DIFF Comments: PATIENT WAS FASTINGPERFORMED BY: [facility]CoSouthern [facility] Medical CenterLxklrf6685 [facility] [id number] Information: [id number] (95334) Immature Grans (Abs) 0.0 {x10E3/uL} (Normal) Range: [...] (Normal) Range: 3.4-10.8 :09 HgA1C , Office (79698) HgA1C , Office 5.6 % (Normal) Range: 4.6 - 7.1 1-Gio-411492:09 Blood Glucose , Office (07304) Blood Glucose , Office 122 (Normal) 26-Dmw-922989:41 Throat Culture (20265) Comments: PATIENT NOT FASTINGPERFORMED BY: [facility]6370 [facility] [id number] Information: SRC:THRT [id number] Result 1 RRF (Normal) Comments: Routine respiratory jose antonio Upper Respiratory Culture Final report (Normal) 70-Uan-16370:38 Rapid Strep Test, Office (79983) Rapid Strep Test, Office Negative (Normal) 27-Ily-522304:37 Blood Glucose , Office (65524) Blood Glucose , Office 123 (Normal) 14-Uew-518321:37 HgA1C , Office (07737) HgA1C , Office 5.9 % (Normal) Range: 4.6 - 7.1 06-Guc-630286:11 METABOLIC PANEL, Comments: PATIENT NOT FASTINGPERFORMED BY: [facility] Clare6370 [facility] [id number] Information: [id number] COMPREHENSIVE (04610) ALT (SGPT) 27 [iU]/L (Normal) Range: 0-44 [...] Glucose, Serum 90 mg/dL (Normal) Range: 65-99 45-Ifx-775849:11 LIPID PANEL (80175) Comments: PATIENT NOT FASTINGPERFORMED BY: [employer] Plnosa0982 [facility] [id number] LDL/HDL Ratio 2.0 {ratio_units} (Normal) Range: 0.0-3.6 LDL Cholesterol Calc 69 mg/dL (Normal) Range: 0-99 VLDL Cholesterol Kylie 21 mg/dL (Normal) Range: 5-40 HDL Cholesterol 35 mg/dL (Abnormal) Comments: According to ATP-III Guidelines, HDL-C >59 mg/dL is considered anegative risk factor for CHD. Triglycerides 103 mg/dL (Normal) Range: 0-149 Cholesterol, Total 125 mg/dL (Normal) Range: 100-199 4-Gyu-496125:19 Comp. Metabolic Panel (14) Comments: PERFORMED BY: Ifbyphone [employer] Mpjfth4182 [facility] [id number] ALT (SGPT) 26 [iU]/L (Normal) Range: 0-44 [...] Lipid Panel With LDL/HDL Comments: PERFORMED BY: [facility] [id number] Ratio LDL Cholesterol Calc 88 mg/dL (Normal) [...] Platelet Count on Citrated Comments: PERFORMED BY: [employer] [facility] [id number] Bld Plt Count, Citrated PAC {X10E3/uL} Range: 155-379 Bld (Normal) Comments: Platelets appear clumped. Vitamin D, 29.0 ng/mL (Abnormal) Comments: PERFORMED BY: [employer] [address] [facility] [id number] :19 25-Hydroxy Range: 30.0-100.0 Comments: Vitamin D deficiency has been defined by the Metter ofMedicine and an Endocrine Society practice guideline as alevel of serum 25-OH vitamin D less than 20 ng/mL (1,2).The Endocrine Society went on to further define vitamin Dinsufficiency as a level between 21 and 29 ng/mL (2).1. IOM (Metter of Medicine). 2010. Dietary reference intakes for calcium and D. [place]: The National Academies Press.2. Fernando MF, Cedric AGUIAR, Teresa ALBERTS, et al. Evaluation, treatment, and prevention of vitamin D deficiency: an Endocrine Society clinical practice guideline. JCEM. 2010; 96(7):1911-30. :18 Blood Glucose , Office (57704) Blood Glucose , Office 126 (Normal) :18 HgA1C , Office (00920) HgA1C , Office 5.3 % (Normal) Range: 4.6 - 7.1 :37 CBC (Auto) (43581) Comments: citrate tube; PATIENT NOT FASTINGPERFORMED BY: [employer] Wuekgx3273 [facility] [id number] Information: ADD [id number] AND DRAW FEE 99 6660 Platelets 154 [...] Range: 3.4-10.8 :24 Blood Glucose , Office (77052) Blood Glucose , Office 113 (Normal) :24 HgA1C , Office (37312) HgA1C , Office 5.2 % (Normal) Range: 4.6 - 7.1 :47 PSA (Prostate Specific Comments: PATIENT NOT FASTINGPERFORMED BY: [employer] Hitch6370 [facility] [id number] Information: [id number] Antigen), Screening (10446) Prostate Specific Ag, 0.8 ng/mL (Normal) Range: 0.0-4.0 Serum Comments: Teresa ECLIA methodology. .According to the [place] U[employer] Association, Serum PSA shoulddecrease and remain at undetectable levels after radicalprostatectomy. The AUA defines biochemical recurrence as an initialPSA value 0.2 ng/mL or greater followed by a subsequent confirmatoryPSA value 0.2 ng/mL or greater.Values obtained with d ifferent assay methods or kits cannot be usedinterchangeably. Results cannot be interpreted as absolute evidenceof the presence or absence of malignant disease. 53-Ilv-005402:55 HgA1C , Office (67308) HgA1C , Office 5.6 % (Normal) Range: 4.6 - 7.1 :55 Blood Glucose , Office (31424) Blood Glucose , Office 111 (Normal) :08 CBC WITH MANUAL DIFF Comments: 4 months; PATIENT WAS FASTINGPERFORMED BY: [facility]Co[facility] CenterVrdegv2881 [facility] [id number] Information: [id number] (26207) Immature Grans (Abs) 0.0 {x10E3/uL} (Normal) Range: [...] 4.14-5.80 WBC 5.4 {x10E3/uL} (Normal) Range: 4.0-10.5 98-Xcr-96944:08 METABOLIC PANEL, COMPREHENSIVE Comments: PATIENT WAS FASTINGPERFORMED BY: [facility]CoSouthern [facility] Medical CenterHtueko5812 [facility] [id number] (44972) ALT (SGPT) 22 [iU]/L (Normal) Range: 0-44 [...] mg/dL (Normal) Range: 65-99 :08 LIPID PANEL (29766) Comments: PATIENT WAS FASTINGPERFORMED BY: [facility]xPresbyterian HospitalWkoyvq4924 [facility] [id number] LDL/HDL Ratio 1.9 {ratio_units} (Normal) Range: 0.0-3.6 HDL Cholesterol 33 mg/dL (Abnormal) Comments: According to ATP-III Guidelines, HDL-C >59 mg/dL is considered anegative risk factor for CHD. LDL Cholesterol Calc 63 mg/dL (Normal) Range: 0-99 VLDL Cholesterol Kylie 24 mg/dL (Normal) Range: 5-40 Triglycerides 120 mg/dL (Normal) Range: 0-149 Cholesterol, Total 120 mg/dL (Normal) Range: 100-199 :08 TSH (79189) Comments: PATIENT WAS FASTINGPERFORMED BY: [employer] Zifcov1879 [facility] [id number] TSH 4.380 {uIU/mL} (Normal) Range: 0.450-4.500 60-Ycm-969328:04 C-Reactive Protein (40215) Comments: PATIENT NOT FASTINGPERFORMED BY: TolerxSouthern Ocean Medical CenterOocjdl6668 [facility] [id number] C-Reactive Protein, Quant 4.5 mg/L (Normal) Range: 0.0-4.9 40-Jge-070717:04 Sed Rate Erythrocyte Comments: PATIENT NOT FASTINGPERFORMED BY: [facility]olerxSouthern Ocean Medical CenterQfvksk1370 [facility] [id number] Information: [id number] (82391) Sedimentation Rate-Westergren 5 mm/h (Normal) Range: 0-30 74-Mrl-905424:22 HgA1C , Office (24597) HgA1C , Office 5.3 % (Normal) Range: 4.6 - 7.1 90-Eon-618579:22 Blood Glucose , Office (57132) Blood Glucose , Office 111 (Normal) 84-Mkg-65846:17 Microscopic Examination Comments: PATIENT WAS FASTINGPERFORMED BY: [facility] Quvqjh4989 [place] [id number] Bacteria None seen (Normal) Mucus Threads Present (Normal) Epithelial Cells (non renal) None seen {/hpf} (Normal) Range: 0 - 10 RBC 0-3 {/hpf} (Normal) Range: 0 - 3 WBC None seen {/hpf} (Normal) Range: 0 - 5 2-Elc-274957:30 ABDOMEN/PELVIS WITHOUT CONT Radiology Report See Note [...] Leon M.D.December 31, 2011 at 5:51:04 PM [id number] Signed SHANEKA/SHANEKA If you are the ref erring physician and would like to consult with theradiologist who provided this interpretation, please contact Earnest Calix at [phone]. If this radiologist is unavailable, you will bedirected to another radiologist to assist. If you are a patient with a question regarding this report, pleasecontactyour referring physician directly. Professional Interpretation Provided By: [employer], Phone , These documents contain legally protected [...] on 01/01/12 1005 Sign by: LEESA LEON 6-Goh-207152:59 CBC with manual diff Comments: PATIENT NOT FASTINGPERFORMED BY: [facility] Clare6370 [facility] [id number] Information: [id number] (38614) Immature Grans (Abs) 0.0 {x10E3/uL} (Normal) Range: [...] 4.14-5.80 WBC 5.8 {x10E3/uL} (Normal) Range: 4.0-10.5 3-Wim-084443:59 Renal function Panel (51646) Comments: PATIENT NOT FASTINGPERFORMED BY: [facility] Wqpqaw7370 [facility] [id number] Albumin, Serum 4.5 g/dL (Normal) Range: 3.5-4.8 [...] Glucose, Serum 90 mg/dL (Normal) Range: 65-99 0-Hnp-876760:20 Urinalysis, Office (62493) UA - BILIRUBIN Negative (Normal) UA - BLOOD Negative (Normal) UA - GLUCOSE Negative (Normal) UA - KETONES Negative mg/dL (Normal) UA - LEUKOCYTE ESTERASE Negative (Normal) UA - NITRITE Negative (Normal) UA - PH 6.0 (Normal) UA - PROTEIN Negative mg/dL (Normal) UA - SPECIFIC GRAVITY 1.015 (Normal) URINE UROBILINGN RENÉE TIMED 2 mg/dL (Normal) :17 LIPID PANEL (17153) Comments: copy to [facility]; PATIENT WAS FASTINGPERFORMED BY: Ifbyphone LabZenedyrp Lhhfis1274 [facility] [id number] LDL/HDL Ratio 2.1 {ratio_units} (Normal) Range: 0.0-3.6 LDL Cholesterol Calc 75 mg/dL (Normal) Range: 0-99 VLDL Cholesterol Kylie 32 mg/dL (Normal) Range: 5-40 HDL Cholesterol 35 mg/dL (Abnormal) Comments: According to ATP-III Guidelines, HDL-C >59 mg/dL is considered anegative risk factor for CHD. Triglycerides 159 mg/dL (Abnormal) Range: 0-149 Cholesterol, Total 142 mg/dL (Normal) Range: 100-199 :17 URINALYSIS, W/ MICRO (65896) Comments: PATIENT WAS FASTINGPERFORMED BY: [facility]-IVCSouthern Ocean Medical CenterCeetuo8416 [facility] [id number] Microscopic Examination See below: (Normal) Microscopic Examination MICRON (Normal) Comments: Microscopic follows if indicated. Nitrite, Urine Negative (Normal) Urobilinogen,Semi-Qn 0.2 mg/dL (Normal) Range: 0.0-1.9 Bilirubin Negative (Normal) Occult Blood Negative (Normal) Ketones Negative (Normal) Glucose Negative (Normal) Protein Negative (Normal) WBC Esterase Negative (Normal) Appearance Clear (Normal) Urine-Color Yellow (Normal) pH 7.5 (Normal) Range: 5.0-7.5 Specific [place] 1.016 (Normal) Range: 1.005-1.030 46-Pzz-88068:17 METABOLIC PANEL, COMPREHENSIVE Comments: PATIENT WAS FASTINGPERFORMED BY: [facility]-IVCSouthern Ocean Medical CenterLqjhwp4397 [facility] [id number] (24050) ALT (SGPT) 29 [iU]/L (Normal) Range: 0-44 [...] Glucose, Serum 93 mg/dL (Normal) Range: 65-99 61-Dzp-45446:17 CBC WITH MANUAL DIFF Comments: PATIENT WAS FASTINGPERFORMED BY: [facility] Clare6370 [facility] [id number] Information: [id number] (11461) Immature Grans (Abs) 0.0 {x10E3/uL} (Normal) Range: [...] (Normal) Range: 4.0-10.5 :55 HgA1C , Office (22742) HgA1C , Office 5.3 % (Normal) Range: 4.6 - 7.1 :55 Blood Glucose , Office (61909) Blood Glucose , Office 120 (Normal) :00 MRA HEAD WITHOUT CONTRAST Radiology Report See Note (Normal) Comments: PROCEDURE: MRA OF THE HEAD WITHOUT CONTRAST REASON FOR EXAM: Male, 76 years old. Severe headache. TECHNIQUE: 3-D ydey-mj-nlkcqr (TOF) imaging was performed with MIPs.Thestudy was [...] There is no demonstrated aneurysm of the [place]. There is nomajor vessel occlusion or hemodynamically significant stenosis. There isno demonstrated abnormality of the visualized brain. IMPRESSION:There is no evidence of aneurysmal formation. 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 Signed:Abdoulaye Garcia M.D.December 24, 2011 at 8:25:06 AM [phone] Signed GP/GP If you are the referring physician and would like to consul t with theradiologist who provided this interpretation, please contact Earnest Underwood at [phone]. If this radiologist is unavailable, youwill be directed to another radiologist to assist. If you are a patient with a question regarding this report, pleasecontactyour referring physician directly. Professional Interpretation Provided By: [employer], Phone , th vitaliy documents contain legally [...] 12/24/11 1032 Sign by: Abdoulaye Garcia MD 22-Qdu-554442:46 BRAIN/HEAD W/WO CONTRAST Radiology Report See Note [...] of the right M1 segment series 1002/19, lsrkxg6245/18-19 which may represent tortuosity or ectasia, aneurysm [...] brain. Signed:Mohan Moseley M.D.Nov at 4:48:04 PM [phone] Signed PF/PF If you are the referring physician and would like to consult with theradiologist who provided this interpretation, please contact Escobar Gaston M.D. at [phone]. If this radiologist is unavailable, you will bedirected to another radiologist to assist. If you are a patient with a question regarding this report, pleasecontactyour r [facility] physician directly. Professional Interpretation Provided By: [employer], Phone , These documents contain legally protected [...] on 12/20/111654 Sign by: Mohan Moseley MD 55-Gju-375208:46 SPINE,CERVICAL WITHOUT CONTRAS Radiology Report See Note [...] Moseley M.D.December 20, 2011 at 7:16:11 PM [phone] Signed PF/PF If you are the referring physician and would like to consult with marii fatima who provided this interpretation, please contact Mohan Moseley M.D. at [phone]. If this radiologist is unavailable, you will bedirected to another radiologist to assist. If you are a patient with a question regarding this report, pleasecontactyour referring physician directly. Professional Interpretation Provided By: [employer], Phone , These documents contain legally protected [...] on 12/20/111922 Sign by: Mohan Moseley MD 23-Fmn-970027:00 CREATININE BLOOD (90995) Comments: PATIENT NOT FASTINGPERFORMED BY: [facility] [id number] Information: [id number] eGFR If Africn Am 83 mL/min/1.73 (Normal) eGFR If NonAfricn Am 72 mL/min/1.73 (Normal) Creatinine, Serum 1.01 mg/dL (Normal) Range: 0.76-1.27 8-Kep-589849:50 Aerobic Bacterial Culture Comments: PERFORMED BY: [facility] [id number] Information: SRC:FM Result 1 NG36 (Normal) Comments: No growth in 36 - 48 hours. Aerobic Bacterial Culture Final report (Normal) 09-Vck-435161:04 HgA1C , Office (46034) HgA1C , Office 5.4 % (Normal) Range: 4.6 - 7.1 28-Pij-61267:34 CBC WITH MANUAL DIFF Comments: PATIENT WAS FASTINGPERFORMED BY: [employer] [facility]6370 [facility] [id number] Information: [id number] (13727) Immature Grans (Abs) 0.0 {x10E3/uL} (Normal) Range: [...] {x10E3/uL} (Normal) Range: 4.0-10.5 :34 LIPID PANEL (58561) Comments: PATIENT WAS FASTINGPERFORMED BY: LabCoSouthern [facility] Medical CenterBmzssf3907 [facility] [id number] LDL/HDL Ratio 1.7 {ratio_units} (Normal) Range: 0.0-3.6 [...] PANEL, COMPREHENSIVE Comments: PATIENT WAS FASTINGPERFORMED BY: LabCoSouthern Ocean Medical CenterLogwza0467 [facility] [id number] (20796) ALT (SGPT) 28 [iU]/L (Normal) Range: 0-55 [...] Glucose, Serum 103 mg/dL (Abnormal) Range: 65-99 39-Ykz-57877:34 MICROALBUMIN: CREATININE RATIO Comments: PATIENT WAS FASTINGPERFORMED BY: [employer]-IVC Wftdtn7995 [facility] [id number] (78315) AND (78342) Microalb/Creat Ratio 2.5 {mg/g_creat} (Normal) Range: 0.0-30.0 Microalbumin, Urine 4.4 ug/mL (Normal) Range: 0.0-17.0 Creatinine, Urine 174.4 mg/dL (Normal) Range: 22.0-328.0 90-Yqt-065845:55 AMADA CULTURE-OTHER (77817) Comments: PATIENT NOT FASTINGPERFORMED BY: [employer] Mfqdmi2164 [facility] [id number] Information: SRC:THRT [id number] Result 1 RRF (Normal) Comments: Routine respiratory jose antonio Upper Respiratory Culture Final report (Normal) 30-Jzm-701957:37 Rapid Strep Test, Office (59254) Rapid Strep Test, Office Negative (Normal) :36 MICROALBUMIN: CREATININE RATIO Comments: PATIENT WAS FASTINGPERFORMED BY: [employer] Acmqxk0522 [facility] [id number] (69412) AND (44569) Microalb/Creat Ratio 1.8 {mg/g_creat} (Normal) Range: 0.0-30.0 Microalbumin, Urine 2.7 ug/mL (Normal) Range: 0.0-17.0 Creatinine, Urine 147.3 mg/dL (Normal) Range: 22.0-328.0 :36 METABOLIC PANEL, COMPREHENSIVE Comments: PATIENT WAS FASTINGPERFORMED BY: [employer] Iwwmuc8445 [facility] [id number] (31486) ALT (SGPT) 27 [iU]/L (Normal) Range: 0-55 [...] mg/dL (Normal) Range: 65-99 :36 LIPID PANEL (70949) Comments: PATIENT WAS FASTINGPERFORMED BY: [employer] Vkocjy3399 [facility] [id number] LDL/HDL Ratio 2.2 {ratio_units} (Normal) Range: 0.0-3.6 [...] MANUAL DIFF Comments: PATIENT WAS FASTINGPERFORMED BY: LabCoSouthern [facility] Medical CenterUdpcqs7443 [facility] [id number] Information: [id number]; f/u 06/17/11 (52715) Immature Grans (Abs) 0.0 {x10E3/uL} (Normal) Range: [...] 4.10-5.60 WBC 4.6 {x10E3/uL} (Normal) Range: 4.0-10.5 84-Wmd-407931:14 CBC WITH MANUAL DIFF Comments: PATIENT WAS FASTINGPERFORMED BY: [facility] [id number] Information: [id number] (42060) Immature Grans (Abs) 0.0 {x10E3/uL} (Normal) Range: [...] 4.10-5.60 WBC 5.2 {x10E3/uL} (Normal) Range: 4.0-10.5 88-Lza-975351:14 LIPID PANEL (93880) Comments: PATIENT WAS FASTINGPERFORMED BY: [facility]CoSouthern [facility] CenterJkuvpw3872 [facility] [id number] LDL/HDL Ratio 2.3 {ratio_units} (Normal) Range: 0.0-3.6 LDL Cholesterol Calc 90 mg/dL (Normal) Range: 0-99 VLDL Cholesterol Kylie 22 mg/dL (Normal) Range: 5-40 HDL Cholesterol 40 mg/dL (Normal) Comments: According to ATP-III Guidelines, HDL-C >59 mg/dL is considered anegative risk factor for CHD. Triglycerides 111 mg/dL (Normal) Range: 0-149 Cholesterol, Total 152 mg/dL (Normal) Range: 100-199 21-Eki-569437:14 METABOLIC PANEL, COMPREHENSIVE Comments: PATIENT WAS FASTINGPERFORMED BY: LabCoSouthern [facility] Medical CenterKilfay7557 [facility] [id number] (87091) ALT (SGPT) 25 [iU]/L (Normal) Range: 0-55 [...] Glucose, Serum 97 mg/dL (Normal) Range: 65-99 58-Hgn-792523:14 MICROALBUMIN: CREATININE RATIO Comments: PATIENT WAS FASTINGPERFORMED BY: [facility] [id number] ([id number]) AND (10455) Microalb/Creat Ratio 16.7 {mg/g_creat} (Normal) Range: 0.0-30.0 Microalbumin, Urine 17.9 ug/mL (Abnormal) Range: 0.0-17.0 Creatinine, Urine 107.4 mg/dL (Normal) Range: 22.0-328.0 18-End-471203:04 URINE AMADA CULTURE-IDENTIFICATN Comments: PATIENT NOT FASTINGPERFORMED BY: [facility] [place] [id number] Information: [id number] ([id number]) Result 1 NG36 (Normal) Comments: No growth [...] Report See Note (Normal) Comments: Exam Number: [id number] LINICAL:The patient is a 75-year-old man with [...] 49.3 disease. Reported By: PAM LAYTON M.D. 48-Dwn-545816:41 Urinalysis, Office (99373) UA - BILIRUBIN Negative (Normal) UA - [...] CHOL 112 mg/dL (Normal) Comments: <200 mg/dL Msaplhzif736-806 mg/dL Borderline>240 mg/dL High Risk :27 VIT D,25 54158 40.0 ng/mL (Normal) Range: 32.0-100.0 Comments: Recent studies consider the lower limit of 32.0 ng/mL to candace threshold for optimal health.Syed PETIT. J Nutr. 2004;135(2):317-22.Performed at: [facility] [place] [address]Lab Director: Shawanda Beatty MD, Phone: [phone] C-REACTIVE PROT 7.78 mg/L (Abnormal) Range: [...] Report See Note (Normal) Comments: Exam Number: [id number] CLINICAL:Left lower quadrant pain. CT ABDOMEN AND [...] Metabolic Panel, Comments: PATIENT WAS FASTINGPERFORMED BY: [facility]Co[facility] CenterCdctkj8294 [facility] [id number] Information: [id number] Comprehensive (53493) ALT (SGPT) 24 [iU]/L (Normal) Range: 0-55 [...] mg/dL (Normal) Range: 65-99 :33 Lipid Panel (96886) Comments: PATIENT WAS FASTINGPERFORMED BY: [facility] [id number] HDL Cholesterol 37 mg/dL (Abnormal) Comments: According [...] (PROSTATE SPECIFIC Comments: PATIENT WAS FASTINGPERFORMED BY: [facility]6[address] [facility] [id number] ANTIGEN) (V76.44) Prostate Specific Ag, 2.5 ng/mL (Normal) Range: 0.0-4.0 Serum Comments: [employer] ECLIA methodology..According to the [place] [employer], Serum PSA shoulddecrease and remain [...] FUNCTION PANEL Comments: PATIENT WAS FASTINGPERFORMED BY: [facility]olerxSouthern [facility] CenterVkxqow5769 [facility] [id number] Information: [id number] (31680) ALT (SGPT) 34 [iU]/L (Normal) Range: 0-55 Alkaline Phosphatase, S 74 [iU]/L (Normal) Range: 25-160 AST (SGOT) 28 [iU]/L (Normal) Range: 0-40 Bilirubin, Direct 0.16 mg/dL (Normal) Range: 0.00-0.40 Bilirubin, Total 0.7 mg/dL (Normal) Range: 0.1-1.2 Albumin, Serum 4.4 g/dL (Normal) Range: 3.5-4.8 Protein, Total, Serum 7.8 g/dL (Normal) Range: 6.0-8.5 :29 Lipid Panel (46101) Comments: PATIENT WAS FASTINGPERFORMED BY: [employer]70 [facility] [id number] LDL Cholesterol Calc 110 mg/dL (Abnormal) Range: 0-99 LDL/HDL Ratio 3.1 {ratio_units} (Normal) Range: 0.0-3.6 HDL Cholesterol 36 mg/dL (Abnormal) Comments: According to ATP-III Guidelines, HDL-C >59 mg/dL is considered anegative risk factor for CHD. Triglycerides 169 mg/dL (Abnormal) Range: 0-149 VLDL Cholesterol Kylie 34 mg/dL (Normal) Range: 5-40 Cholesterol, Total 180 mg/dL (Normal) Range: 100-199 :28 CBC WITH MANUAL DIFF (16413) Comments: PATIENT WAS FASTINGClinical Information: ADD [id number] PERFORMED BY: Seiratherm6370 [facility] [id number] Baso (Absolute) 0.0 {x10E3/uL} (Normal) Range: 0.0-0.2 [...] CREATININE RATIO Comments: PATIENT WAS FASTINGPERFORMED BY: [facility]-IVCSouthern [facility] CenterKjklip2604 [facility] [id number] ([id number]) AND (07124) Creatinine, Urine 200.6 mg/dL (Normal) Range: 22.0-328.0 Microalb/Creat Ratio 2.1 {mg/g_creat} (Normal) Range: 0.0-30.0 Microalbumin, Urine 4.2 ug/mL (Normal) Range: 0.0-17.0 :28 METABOLIC PANEL, COMPREHENSIVE Comments: PATIENT WAS FASTINGPERFORMED BY: [facility]-IVCSouthern [facility] CenterDvpkhq9126 [facility] [id number] (27795) A/G Ratio 1.3 (Normal) Range: 1.1-2.5 Albumin, [...] mmol/L (Normal) Range: 135-145 :28 LIPID PANEL (69839) Comments: 02-03; PATIENT WAS FASTINGPERFORMED BY: [employer] Venegas [facility] [id number] Cholesterol, Total 149 mg/dL (Normal) Range: 100-199 [...] PATIENT WAS FASTINGClinical Information: ADD DRAW FEE [id number] ADD J 74440 PERFORMED BY: [employer] [facility] [id number] (60675) A/G Ratio 1.3 (Normal) Range: 1.1-2.5 Albumin, [...] Serum 98 mg/dL (Normal) Range: 65-99 If -Syrian >59 mL/min/1.73 Comments: Note: Persistent reduction for [...] mmol/L (Normal) Range: 135-145 04-Jul-20088:28 Lipid Panel (61382) Comments: in three months (approximately); PATIENT WAS FASTINGPERFORMED BY: LabCoSouthern [facility] CenterSlihsv1906 [facility] [id number] Cholesterol, Total 139 mg/dL (Normal) Range: 100-199 [...] (PROSTATE SPECIFIC Comments: PATIENT WAS FASTINGPERFORMED BY: [facility]elos70 [facility] [id number] ANTIGEN) (V76.44) Prostate Specific Ag, Serum 1.0 ng/mL (Normal) Range: 0.0-4.0 Comments: [employer] methodology. .According to the [place] [employer], PSA should beundetectable after radical prostatectomy. A PSA of less than0.5 ng/mL (or undetectable) is not likely to be associated withdisease recurrence within five years of treatment.Values obtained with different assay methods or kits cannot be usedinterchang eably. Results cannot be interpreted as absolute evidenceof the presence or absence of malignant disease. :19 CALCIFIDIOL (35579) VIT D 25 Comments: PATIENT WAS FASTINGPERFORMED BY: Seiratherm6370 [facility] [id number] Vitamin D, 25-Hydroxy 31.1 ng/mL (Abnormal) Range: 32.0-100.0 Comments: Recent studies consider the lower limit of 32.0 ng/mL to be athreshold for optimal health.Syed PETIT. J Nutr. 2004;135(2):317-22. 48-Gph-43697:19 C-Reactive Protein (44476) Comments: PATIENT WAS FASTINGPERFORMED BY: [facility]6370 [facility] [id number] C-Reactive Protein, Quant 8.2 mg/L (Abnormal) Range: 0.0-4.9 68-Nru-47730:19 TSH (41587) Comments: PATIENT WAS FASTINGPERFORMED BY: [employer] [facility]6370 [address] [facility] [id number] TSH 2.354 {uIU/mL} (Normal) Range: 0.450-4.500 :19 MICROALBUMIN: CREATININE RATIO Comments: PATIENT WAS FASTINGPERFORMED BY: [facility] [id number] (22477) AND (06096) Microalbum.,U,Random 4.3 ug/mL (Normal) Range: 0.0-17.0 :19 METABOLIC PANEL, COMPREHENSIVE Comments: PATIENT WAS FASTINGPERFORMED BY: [facility] [id number] (02496) A/G Ratio 1.2 (Normal) Range: 1.1-2.5 Albumin, [...] Serum 97 mg/dL (Normal) Range: 65-99 If -Syrian >59 mL/min/1.73 Comments: Note: Persistent reduction for [...] Range: 135-145 :19 CBC WITH MANUAL DIFF (50854) Comments: PATIENT WAS FASTINGClinical Information: ADD DRAW FEE [id number] ADD J [id number] PERFORMED BY: [facility]CoSouthern [facility] CenterWadnbg1274 [facility] [id number] Baso (Absolute) 0.0 {x10E3/uL} (Normal) Range: 0.0-0.2 [...] 11.7-15.0 WBC 5.5 {x10E3/uL} (Normal) Range: 4.0-10.5 11-Bju-52712:19 LIPID PANEL (60060) Comments: PATIENT WAS FASTINGPERFORMED BY: ADRIANA LabCo Iwcfao0979 [facility] [id number] Cholesterol, Total 161 mg/dL (Normal) Range: 100-199 HDL Cholesterol 36 mg/dL (Abnormal) Comments: According to ATP-III Guidelines, HDL-C >59 mg/dL is considered anegative risk factor for CHD. LDL Cholesterol Calc 90 mg/dL (Normal) Range: 0-99 LDL/HDL Ratio 2.5 {ratio_units} (Normal) Range: 0.0-3.6 Triglycerides 174 mg/dL (Abnormal) Range: 0-149 VLDL Cholesterol Kylie 35 mg/dL (Normal) Range: 5-40 :44 Urinalysis, Office (14405) UA - BILIRUBIN Negative (Normal) UA - [...] left lower quadrant PROSTATITIS NOS : Reviewed Database Support contact lens edge buffer note of 07-13-2009 Indication: PROSTATITIS NOS PROSTATITIS [...] Injection Indication: Shoulder pain Planned Observations CALCIFIDIOL (12917) VIT D 25Indication: Vitamin D deficiency, unspecified On: 24-Apr-2018 Request URINALYSIS, W/ MICRO (07773)Indication: Hypertension, benign On: 24-Apr-2018 Request LIPOPROTEIN, BLD, BY NMR (11647)Indication: Mixed hyperlipidemia On: 03-Vmv-396082:08 Request METABOLIC PANEL, COMPREHENSIVE (84751)Indication: Hypertension, benign On: 91-Cxw-024409:08 Request CALCIFIDIOL (22202) VIT D 25Indication: Vitamin D deficiency, unspecified On: 82-Vpw-820123:08 Request URINALYSIS, W/ MICRO (42006)Indication: Hypertension, benign On: 2-Ckx-770136:21 Request SED RATE ERYTHROCYTE (18198)Indication: Diverticulitis On: :31 Request Comments: stat METABOLIC PANEL, COMPREHENSIVE (23205)Indication: Diverticulitis On: :31 Request Comments: stat CBC W/AUTO DIFF WBC (44259)Indication: Diverticulitis On: :31 Request Comments: stat Metabolic Panel, Basic (62653)Indication: Hypertension, benign On: 41-Qxx-542064:24 Request Comments: recheck in 2 weeks Sed Rate Erythrocyte (53111)Indication: Elevated vitamin B12 level On: 80-Skk-424023:23 Request CBC, Platelets & Auto Diff (75570)Indication: Abdominal pain, acute, right upper quadrant (Renamed from Acute abdominal pain in right upper quadrant) On: 86-Rem-231542:54 Request Metabolic Panel, Comprehensive (35939)Indication: Abdominal pain, acute, right upper quadrant (Renamed from Acute abdominal pain in right upper quadrant) On: 68-Wuo-705841:54 Request Lipase (21356)Indication: Abdominal pain, acute, right upper quadrant (Renamed from Acute abdominal pain in right upper quadrant) On: 31-Ery-388278:53 Request Amylase (54237)Indication: Abdominal pain, acute, right upper quadrant (Renamed from Acute abdominal pain in right upper quadrant) On: 47-Pcq-106005:53 Request Sed Rate Erythrocyte (69309)Indication: Abdominal pain, acute, right lower quadrant On: :12 Request CBC (Auto) (19936)Indication: Abdominal pain, acute, right lower quadrant On: :12 Request Metabolic Panel, Comprehensive (63241)Indication: Abdominal pain, acute, right lower quadrant On: :12 Request PSA (PROSTATE SPECIFIC ANTIGEN) (V76.44)Indication: Encounter for well adult exam with abnormal findings On: 39-Kcg-009076:49 Request CALCIFIDIOL (38467) VIT D 25Indication: Vitamin D deficiency, unspecified On: :46 Request URINALYSIS, W/ MICRO (54599)Indication: Coronary artery disease On: :45 Request METABOLIC PANEL, COMPREHENSIVE (14905)Indication: Coronary artery disease On: :45 Request LIPID PANEL (24994)Indication: Coronary artery disease On: :45 Request CBC with auto diff (77553)Indication: Coronary artery disease On: :45 Request CBC (Auto) (94036)Indication: Hypertension, benign On: 16-Kxi-121720:03 Request Comments: citrate tube Lipid Panel (54220)Indication: Mixed hyperlipidemia On: : Request Metabolic Panel, Comprehensive (82252)Indication: Hypertension, benign On: 35-Byx-953155:02 Request CALCIFEDIOL (46146)Indication: Vitamin D deficiency, unspecified On: 85-Lsl-280128: Request TSH (85449)Indication: Other anxiety states On: 30-Inm-774942:00 Request MICROALBUMIN: CREATININE RATIO (77770) AND (14575)Indication: Hypertension On: 05-Ayg-898008:00 Request METABOLIC PANEL, COMPREHENSIVE (32421)Indication: Hypertension On: 81-Dua-009797: Request LIPID PANEL (38521)Indication: Hypertension On: 12-Njp-902808: Request CBC WITH MANUAL DIFF (26591)Indication: Hypertension On: 40-Dwi-798165:00 Request AMADA CULTURE-OTHER (46261)Indication: Forearm On: 02-Oct-20118:59 Request OVA & PARASITE DIR SMEAR (29470)Indication: Diarrhea On: 69-Qtp-435722:01 Request C.Difficile, Stool (49844)Indication: Diarrhea On: :01 Request LEUKOCYTE COUNT, FECAL (86076)Indication: Diarrhea On: : Request AMADA CULTURE-STOOL (67709)Indication: Diarrhea On: 04-Phr-908566:01 Request METABOLIC PANEL, BASIC (03124)Indication: Hypertension, benign On: :05 Request Urinalysis, Office (62737)Indication: Urinary frequency On: 19-Bzu-549843:24 Request C-REACTIVE PROTEIN (08233)Indication: Abdominal pain, acute, left lower quadrant On: 11-Xxh-143668:10 Request SED RATE ERYTHROCYTE (48244)Indication: Abdominal pain, acute, left lower quadrant On: 25-Sxb-224973:10 Request CBC WITH MANUAL DIFF (76428)Indication: Abdominal pain, acute, left lower quadrant On: 14-Ffm-177641:09 Request CALCIFIDIOL (82454) VIT D 25Indication: Vitamin D deficiency, unspecified On: 74-Lbt-56536:48 Request METABOLIC PANEL, COMPREHENSIVE (70248)Indication: Hypertension, benign On: :48 Request LIPID PANEL (76939)Indication: Hypertension, benign On: :48 Request CBC WITH MANUAL DIFF (31468)Indication: Hypertension, benign On: :48 Request Rapid Flu (77206 x 2)Indication: Fever On: 41-Ucs-609220:31 Request Planned Encounters Medical; [facility] 3 Month FU - On: 25-May-2018 10:45 Comprehensive Internal Medicine Alberto HARRY, Samia Sanchez MD Planned Procedures US DOPPLER CAROTID BILATERAL On: 17-Mar-2018 Intent (00176)By: Samia Dominguez MD, MD, Dana M Flu Vaccine (Quadrivalent) On: 09-Feb-2018 Intent 93872Tb: Samia Dominguez MD Comments: Lot #:[id number] date: 4-56-42Urhmtp given:0.5mlRoute: IMSite given:L DltdGiven by: ElaineVIS and ABN signed Fluarix Samia Dominguez MD ELECTROCARDIOGRAM, COMPLETE (ECG) On: 05-Sep-2017 Intent (43891)By: Samia Dominguez MD Comments: see scanned document [...] US DOPPLER CAROTID BILATERAL On: 22-Oct-2016 Intent (14608)By: Samia Dominguez MD, MD, Dana M Radiology - Lumbar SpineBy: On: 24-Jun-2016 Intent Samia Dominguez MD, MD, Dana M CT - Abdomen & Pelvis (IV On: 24-Jun-2016 Intent Contrast Needed)By: Alberto HARRY, Comments: kidney stone protocol. hx of heptomegaly. Samia Sanchez MD Flu Vaccine (Quadrivalent) On: 22-Jan-2016 Intent 09981Ud: Samia Dominguez MD Comments: Lot #:[id number] date:6-15-13Ohewsi given:0.5mlRoute: IMSite given:L DltdGiven by: ElaineVIS and ABN signed Fluarix Samia Dominguez MD CT - Abdomen (IV Contrast On: 06-Oct-2015 Intent Needed)By: Samia Dominguez MD Comments: attentiom pancrease Samia Dominguez MD ANGIOGRAM, CAROTID AND CEREBRAL On: 28-Jun-2015 Intent VESSELS, BILATERAL (28168)By: Comments: attention basilar artery and vertebrals Samia Dominguez MD, MD, Dana M Carotid DopplerBy: Alberto HARRY, On: 10-Jan-2015 Intent Samia Sanchez MD Flu Vaccine (Quadrivalent) On: 10-Jan-2015 Intent 78268Lj: Samia Dominguez MD Comments: lot: [id number]: 09/24/16site/route: L del/IMamt: 0.5mLVIS signed when applicableChelsjb, Samia Kumar MD ADMINISTRATION OF INFLUENZA VIRUS On: 10-Jan-2015 Intent VACCINE (G0008)By: Samia Dominguez MD, MD, Dana M CT - Abdomen & Pelvis (IV On: 08-Dec-2014 Intent Contrast Needed)By: Alberto HARRY, Comments: rule out hernia rule out ileocecal colitis Samia Sanchez MD Wax CurettesBy: Samia Dominguez MD On: 05-Jul-2014 Intent Samia Bond MD Ear Irrigation (14423)By: On: 05-Jul-2014 Intent Samia Dominguez MD, MD, Comments: Bilateral irrigationmoderate amount of light yellow wax removedtolerated well with no complaint of painwax curette GALINA oliva TDAP VACCINE >7 IM (84198)By: On: 02-Nov-2013 Intent Samia Dominguez MD, MD, Comments: Lot #:[id number] date:2-40-2927Cfhrco given:1/2 cc Route:IM Site given:left deltoid Given by: mabel Villalba Eprescribed prescriptions On: 26-Jul-2013 Intent (G8553)By: Aparna Stinson CNP DXA, BONE DENSITY, AXIAL SKELETON On: 06-Jul-2013 Intent (97468)By: Samia Dominguez MD Comments: heel screen low Samia Dominguez MD Eprescribed prescriptions On: 06-Jul-2013 Intent (G8553)By: Samia Dominguez MD, MD, Dana M Eprescribed prescriptions On: 11-Mar-2013 Intent (G8553)By: Samia Dominguez MD, MD, Dana M LCFT-NG-GJQI BEHAVIORAL On: 11-Mar-2013 Intent COUNSELING FOR OBESITY, 15 MINUTES (G0447)By: Samia Dominguez MD, MD, Dana M ADMINISTRATION OF INFLUENZA VIRUS On: 21-Jan-2012 Intent VACCINE (G0008)By: Olvin MOJICA, Comments: Lot #[id number]-L dltd, IMDose prefilled syringegiven by Rohan Hastings FLU VAC, SPLIT, >3 YEARS, On: 21-Jan-2012 Intent INTRAMUSC (67466)By: Nguyen Bah LPN CT - Abdomen & [...] SPLIT, >3 YEARS, On: 18-Feb-2011 Intent INTRAMUSC (47966)By: Luzmaria, Comments: Lot #:[id number] Expiration date:mount given:0.5mlRoute: IMSite given:left deltoid Given by: Senthil MEADOWS ADMINISTRATION OF INFLUENZA VIRUS On: 18-Feb-2011 Intent VACCINE (G0008)By: ABDIEL Dutta Ultrasound - post void bladder On: 06-Feb-2010 Intent residualBy: Samia Dominguez MD, MD, Dana M ADMINISTRATION OF INFLUENZA VIRUS On: 06-Feb-2010 Intent VACCINE (G0008)By: ABDIEL Dutta FLU VAC, SPLIT, >3 YEARS, On: 06-Feb-2010 Intent INTRAMUSC (20335)By: ABDIEL Dutta CT - Abdomen & Pelvis (IV On: 21-Nov-2009 Intent Contrast Needed)By: Milvia Lundberg DO DXA, BONE DENSITY, AXIAL SKELETON On: 07-Aug-2009 Intent (23604)By: Samia Dominguez MD, MD, Dana M ADMINISTRATION OF INFLUENZA VIRUS On: 31-Jan-2009 Intent VACCINE (G0008)By: Luzmaria, Comments: Lot #:[id number] date:mount given:0.5mlRoute: IMSite given:left deltoid Given by: Rabia MEADOWS FLU VAC, SPLIT, >3 YEARS, On: 31-Jan-2009 Intent INTRAMUSC (41430)By: ABDIEL Dutta Instructions Name Dates Details Vertigo [...] Advance Directives Name Dates Details Immunization Registry Brodnax - Effective on Effective: 06-Dec-201612/06/2016. Expiration date [...] The patient does have durable power of managing attorney and living will. The patient has noticed getting bored, staying at home rather t morgan doing something new or going out and lack of energy. Other providers contributing to the patient's care are foam cutting supervisor (Dr. Horvath) and other: ([facility]Encounter Diagnosis: BMI 32.0-32.9,adult, Current nonsmoker (Renamed from [...] The patient does have durable power of managing attorney and living will. The patient has noticed staying at home rather than doi ng something new or going out and lack of energy. Other providers contributing to the patient's care are foam cutting supervisor (Kailyn ), gastrologist (Lexi ) and [...] Yes the patient did have (wisper 04/30 [facility] ) a mini mental statu End: 08-Jul-2013 [...] The patient does have durable power of managing attorney and living will. The patien t has noticed dropping activities and interests, getting bored, feeling sad most of time, staying at home rather than doing something new or going out, having problems with memory than others and lack o f energy. Other providers contributing to the patient's care are foam cutting supervisor (Dr Horvath) and overhead worker (Dr Macdonald). Note for Annual Medicare Exam: [...] (746.9), GERD (530.81), WMV V790.00 (Renamed from [facility]) Comprehensive Internal Medicine Office Visit On: [...] GERD (530.81) , Urinary Urge Incontinence (788.31), [facility] V790.00 (Renamed from [facility]) Comprehensive Internal Medicine Office Visit On: [...] (746.9), arthritis,unspecified (716.90), Anxiety state, unspecified (300.00), [facility] Comprehensive Internal Medicine Office Visit On: [...] (414.00), Lesion-Unknown behavior (238.2), Shoulder pain (719.41), [facility] Comprehensive Internal Medicine Office Visit On: [...]
--- OUTSIDE RECORDS SUMMARY | 2018-05-05 23:58 | XMS RPT_ITS | Continuity of Care Document ---
:1935 Author Organization [facility] Address [address] [place] [address] Phone Care Team Providers Name Role Phone Alberto HARRY, Samia Villalba Unavailable Claudia Dutton Unavailable Unavailable Julito HARRY, Dr. Jennings Unavailable [facility], Gustavo Mayo Unavailable Mehdi Foote Unavailable [...] 0 days Quantity: 90 {Tablet} Refills: 3 Ordered:13-Apr-2018 Samia Dominguez MD, MD, Dana M Start : 13-Apr-2018 Active ASPIRIN LOW DOSE, 81MG (Oral Tablet) [...] Dana M Start : 09-Feb-2018 Active Comments:ID# [id number] Meclizine HCl 12.5 MG Oral Tablet 1 [...] : 01-May-2012 End : 08-Feb-2013 Inactive Comments:ID# [id number] HYDROCODONE-ACETAMINOPHEN, 5-325MG (Oral Tablet) 1 (one) Tablet [...] : 17-Jun-2011 Discontinued Comments:This order discontinued per [facility]. LIPITOR, 10MG (Oral Tablet) 1 [...] Comments: had xray, pt, Dr. kaiser at [facility], injection good for 6 weeks--now back talk [...] as of 16-Jul-2012 WM V790.00 (Renamed from [facility]) Comments: family of colon ca--gets scope every 5 years--3-09psa toney de luna Status: Inactive as of 11-Jan-2013 Procedures Procedure Dates Details Appendectomy Completed Bladder/prostate surgery Completed Comments: January 16 Dr. De Luna Cholecystectomy Completed COLONOSCOPY, NOS Completed Comments: 2002, 2013 HERNIA REPAIR, NOS Completed Comments: 1967 SHOULDER, NOS Completed Comments: Surgery 08-30 Vasectomy Completed Comments: 1967 Date Value Details 25-Mar-2018 Carotid Duplex Ultrasound Result: Comments: See Note; NOTES: [facility] Cardiovascular Services [address] [place] [address] Carotid Duplex Ultrasound 03/24/18 1002 MR#: [id number] Acct: [id number] Name: MOISES HOWARD Rep #: [id number] : 1935 83 From: John Owens MD Attending Dr: Samia Dominguez MD Status: REG CLI Ordering Dr: Samia Dominguez MD Date: 03/24/18 Location: [facility] Sex: M C Admitted: Reas on For Study: carotid stenosis Rt. Velocities/BP Lt. Velocities/BP Prox CCA 119.0/14.9 cm/sec. Prox CCA 116.0/15.8 cm/sec. Mid CCA 120.0/19.6 cm/sec. Mid CCA 113.0/14.7 cm/sec. Dist CCA 86.4/18.1 cm/se c. Dist CCA 117.0/16.4 cm/sec. Prox ICA 61.6/15.2 cm/sec. Prox ICA 80.3/14.1 cm/sec. Mid ICA 149.0/34.4 cm/sec. Mid ICA 137.0/27.5 cm/sec. Dist ICA 152.0/35.4 cm/sec. Dist ICA 86.2/22.3 cm/sec. Rt. ICA/ CCA = 152.0/120.0=1.3. Lt. ICA/CCA = 137.0/113.0=1.2. Prox ECA 111.0/10.2 cm/sec. Prox ECA 151.0/8.64 cm/sec. Rt. Vert. 46.0/11.4 cm/sec. Lt. Vert. 60.5/12.2 cm/sec. Right Extracranial There is intimal thickening but no significant atherosclerotic plaque noted in the right common carotid artery. There is intimal thickening but no significant atherosclerotic plaque noted in the right internal carotid artery. The right internal carotid artery is very tortuous. There is no significant atherosclerotic plaque noted in the right external carotid artery. Antegrade flow is noted in the right vertebral albert ry. Left Extracranial There is homogeneous, smooth atherosclerotic plaque noted in the left common carotid artery. There is heterogeneous, irregular atherosclerotic plaque noted in the left internal c arotid artery. The tortuous nature of the left internal carotid artery may result in flow velocities overestimating the degree of stenosis. There is no significant atherosclerotic plaque noted in the le ft external carotid artery. Antegrade flow is noted in the left vertebral artery. Interpretation Summary Moderate (50-69%) stenosis right extracranial internal carotid. Moderate (50-69%) stenosis left extracranial internal carotid. Flow within the vertebral arteries is antegrade bilaterally. Ord ering Physician: Samia Dominguez Referring Physician: Samia Dominguez Performed By: Simran Perales, RDCS, RVT 03/25/18 1136 Date ___ John Owens MD CC: Samia Dominguez MD Date Dictated: 03/24/18 1002 Date Transcribed: 03/25/181135 Photographic Platemaker: Signed 11-Mar-2018 Inj/Asp Reza Jt Should/Hip/Knee Result: Comments: See Note; NOTES: [facility] Imaging Services [address] [place] [address] Inj/Asp Reza Jt Should/Hip/Knee MR#: [id number] Acct: [id number] Name: MOISES AHUJA Rep # : [id number] : 1935 83 From: Abdoulaye Garcia MD PCP: Samia Dominguez MD Status: REG CLI Study: Inj/Asp Reza Jt Should/Hip/Knee Date of Exam: 03/11/18 Exam# [id number] Ordering Dr: Anmol Fisher MD PROCEDURE: Fluoroscopic [...] Abdoulaye Garcia MD at 9:42 EST Tel [phone], Service support , CC: Samia Dominguez MD; Anmol Fisher MD Photographic Platemaker: Signed 05-Mar-2018 PT D/C Summary (1) Result: Comments: See Note; NOTES: [facility] [address] [place] [address]. [address] [place] [address] Fax REHABILITATION SERVICES [facility] [place] SUMMARY MR#: [id number] Acct: [id number] Name: MOISES AHUJA Rep #: [id number] : 1935 83 From: Ashok Nolasco DPT, OCS, CSCS Referring : Status: REG RCR Insurance: MEDICARE PART A [...] please feel free to call me at [phone]. Thank you for the referral of this patient. Sincerely, Ashok Nolasco DPT, OC <Electronically signed by Ashok Nolasco DPT, KEIRY, CSCS> 03/05/18 0911 CC: Samia Dominguez MD; OUT OF TOWN DOCTOR EBG Signed 18-Feb-2018 Inital Evaluation (1) - PT Result: Comments: See Note; NOTES: [facility] [address] [place], [place] [address] Fax REHABILITATION SERVICES INITIAL EVALUATION MR#: [id number] Acct: [id number] Name: MOISES AHUJA Rep #: [id number] : 1935 82 From: Ashok Nolasco DPT, KEIRY, CSCS Referring Dr.: OUT OF TOWN DOCTOR Status: REG RCR Insurance: [place] A B ANTHEM Patient's Visit Information MOISES AHUJA is a 82 year old M referred to Physical Therapy by CORTES BALLARD with a diagnosis of c/s radiculopathy. Date of Evaluation: 02/17/18 Ph ysical Therapist: Ashok Nolasco DPT, OC - Visit Plan Frequency: 2x /Week [...] on stove. Neck hurts much of day 2-3. Goes up to 8/10 shooting pain with [...] to be FAXED BACK to us at [phone] for Medicare purposes. Please let me know if there are questions or concerns regarding this plan of care. Physician Signature: Date: <Electronically signed by Ashok Nolasco DPT, OCS, CSCS> 02/18/18 0710 CC: Samia Dominguez MD; OUT OF TOWN DOCTOR DT: 8 EBG Signed For Medicare only, by signing this I certify the plan of care. Physicians Signature Date 16-Jan-2018 Operative Report - Endoscopy Result: Comments: See Note; NOTES: [facility] Medical Records Department [address] [place] [address] Operative Report - Endoscopy MR#: [id number] Acct: [id number] Name: MOISES AHUJA Rep #: [id number] : 1935 82 From: Mehdi Foote MD PCP: Samia Dominguez MD Status: REG [facility] Patient Name: Moises Ahuja Procedure Date: 01/16/2018 [...] to age. Procedure Code(s): --- Professional --- 46032, PT, Colonoscopy, flexible; diagnostic, including collection of specimen(s) by brushing or washing, when performed (separate procedure) Diagnosis Code(s): --- Professional --- Z86.010, Personal history o f colonic polyps K57.30, Diverticulosis of large intestine without perforation or abscess without bleeding CPT copyright 2017 [employer]. All rights reserved. The codes documented in t his report are preliminary and upon energy conservation director review may be revised to meet current compliance requirements. Mehdi Foote MD 01/16/2018 10:49:47 AM This report has been signed electronically. Number o f Addenda: 0 Note Initiated On: 01/16/2018 10:15 AM 01/16/18 1049 Date Mehdi Foote MD Cosigner Signature: Date (if indicated) CC: Mehdi Foote MD; Samia Dominguez MD Date Dictated: 01/16/18 1015 Date Transcribed: Photographic Platemaker: SCOT Signed 30-Dec-2017 Surgery Visit Report Result: Comments: See Note; NOTES: [facility] [address] [place] [address] [address] [place] [address] OFFICE VISIT Date of Service: 12/30/17 MR#: [id number] Acct: [id number] Name: MOISES AHUJA Rep #: [id number] : 1935 Provider: Nay Quesada PA-C Age/Sex: 82/M Location: [facility] Status: Signed Intake Vital Signs12/30/17 Height 5 ft 7 in 12/30/17 Weight: 195 lb Intake Visit Reasons: UPDATE H AND P Metal Handler Required: No Is patient in pain?: No [...] P O QDAY 10/22/17 [History Confirmed 12/30/17] PFSH Medical History Nonrheumatic mitral valve prolapse (Chronic) Accelerated essential hypertension (Acu te) Hyperlipidemia (Chronic) Hypertension (Chronic) Coronary artery disease (Chronic) C. difficile colitis (Acute) Surgical History H/O colonoscopy (Re solved) Hx of hernia repair (Resolved) H/O vasectomy (Resolved) Hx of cholecystectomy (Resolved) Hx of appendectomy (Resolved) Family History Mother CAD (coronary artery disease) Diabetes Hypertension [...] cardiac history of mitral valve prolapse. 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 Patient's previous history per [...] Visit Report Result: Comments: See Note; NOTES: [facility] [address] [place] [address] [address] [place] [address] OFFICE VISIT Date of Service: 11/05/17 MR#: [id number] Acct: [id number] Name: MIKELuisanaMOISES Rep #: [id number] : 1935 Provider: Mehdi Foote MD Age/Sex: 82/M Location: [facility] Status: Signed Intake Vital Signs11/05/17 Height 5 ft 7 in 11/05/17 Weight: 201 lb 11/05/17 Bod y Mass Index (BMI) 31.4 Intake Visit Reasons: C-Scope Screening Metal Handler Required: No Is patient in pain?: No [...] mg PO QDAY 10/22/17 [History Confirmed 11/05/17] PFSH Medical History Nonrheumatic mitral valve prolapse [...] colonoscopy in December. Mehdi Foote MD Pager: [facility] [address] [place] [address], [address] [place] [address] Office: Orders Orders: Coding Level of Care Code Off vis,new,level 3 Diagnoses History of adenomatous polyp of colon Z86.010 Colitis K52.9 03/15 1050 <Electronically signed by Mehdi Foote MD> Date Mehdi Foote MD Cosigner Signature: Date (if applicable) CC: Samia Dominguez MD 24-Oct-2017 Cardiology Visit Report Result: Comments: See Note; NOTES: [facility] [address] [place] [address] OFFICE VISIT Date of Service: 10/22/17 MR#: [id number] Acct: [id number] Name: MOISES AHUJA Rep #: [id number] : 1935 Provider: Edelmira Zayas Age/Sex: 82/M Location[facility] Status: Signed HPI HPI Details: MOISES [...] rachial Intake Visit Reasons: 1 Y FU Metal Handler Required: No Accompanied by: Allergies Penicillins Allergy [...] this time. 2. Pure hypercholesterolemia E78.00; E78.0 Plan - HUANG Abdullahi Managed by primary care [...] prior to saving. 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 The patient exercised on a Arymond protocol for 6 minutes and 30 seconds [...] 70 %. This note was generated with [employer] software. It may contain incorrect words, spelling, and punctuation that were not noted in checking the note before signing. 10/07/17 17 02 <Electronically signed by Tacho Rolle MD> Date Tacho Rolle MD CC: Samia Dominguez MD Date Dictated: 10/07/171655 Date Transcribed: 10/07/171655 Photographic Platemaker: PM Signed 07-Oct-2017 Echocardiogram Complete Result: Comments: See Note; NOTES: [facility] Cardiovascular Services [address] [place] [address] Echo Complete 10/07/17 0858 MR#: [id number] Acct: [id number] Name: MOISES AHUJA #: [id number] : 1935 82 From: Tacho Rolle MD Attending Dr: Samia Dominguez MD Status: REG CLI Ordering Dr: Samia Dominguez MD Date: 10/07/17 Location: [facility] Sex: M C Admitted: Reason For Praneeth [...] Physician: Samia Dominguez Performed By: Saida Denise RDCS Electronically s igned by: Tacho Rolle MD on 10/07/2017 03:05 PM 10/07/17 1505 Date Tacho Rolle MD CC: Samia Dominguez MD Date Dictated: 10/07/17 0858 Date Trans cribed: 10/07/17 1505 Photographic Platemaker: Signed 29-Jul-2017 Abdomen Single View Result: Comments: See Note; NOTES: [facility] Imaging Services [address] [place] [address] Abdomen Single View MR#: [id number] Acct: [id number] Name: MOISES AHUJA Rep #: [id number] : 1935 M 82 From: Abdoulaye Garcia MD PCP: Samia Dominguez MD Status: REG CLI Study: Abdomen Single View Date of Exam: 07/29/17 Exam# [id number] Ordering Dr: Samia Dominguez MD STUDY: X-RAY [...] Abdoulaye Garcia MD at 13:01 EDT Tel [phone], Service support , CC: Samia Dominguez MD Photographic Platemaker: Signed 12-May-2017 PT D/C Summary (1) Result: Comments: See Note; NOTES: [facility] [address] [place] [address] Fax REHABILITATION SERVICES DISCHAR GE SUMMARY MR#: [id number] Acct: [id number] Name: MOISES AHUJA Rep #: [id number] : 1935 82 From: Hang Waller PT, ATC Referring Dr.: Pavel Madsen MD Status: REG RCR Insurance: MEDICARE PART A B ANTHEM HP - PT D/C Summary It has been my pleasure to treat MOISES AHUJA under orders from Pavel Madsen, for the diagnosis of L shoulder impingement syndrome for a total of 4 visit(s). Claudia bailey Date: Please see the following information for [...] please feel free to call me at [phone]. Thank you for the referral of this patient. Sincerely, Hang Waller, PT, <Electronically signed by Hang Waller PT, ATC&#62 ; 05/12/17 1002 CC: Samia Dominguez MD; Pavel Madsen MD [facility] Signed 09-Apr-2017 Inital Evaluation (1) - PT Result: Comments: See Note; NOTES: [facility] [place] [address] Fax REHABILITATION SERVICES INITIAL EVALUATION MR#: [id number] Acct: [id number] Name: MOISES AHUJA Rep #: [id number] : 1935 82 From: Hang Waller PT, ATC Referring Dr.: Pavel Madsen MD Status: REG RCR Insurance: MEDICARE PART A B KARLI Patient's Visit Information MOISES AHUJA is a [...] to be FAXED BACK to us at [phone] for Medicare purposes. Please let me know if there are questions or concerns regarding this plan of care. Physician Signature: ____Date: <Electronically signed by Hang Wallre PT, ATC> 04/09/17 0758 CC: Samia Dominguez MD; Pavel Madsen MD [facility] Signed For Medicare only , by signing this I certify the plan of care. Physicians Signature Date 05-Nov-2016 Carotid Duplex Ultrasound Result: Comments: See Note; NOTES: [facility] Cardiovascular Services [address] [place] [address] Carotid Duplex Ultrasound 11/01/16 0857 MR#: [id number] Acct: [id number] Name: MOISES HOWARD Rep #: [id number] : 1935 81 From: John Owens MD Attending Dr: Samia Dominguez MD Status: REG CLI Ordering Dr: Samia Dominguez MD Date: 11/01/16 Location: [facility] Sex: M C Admitted: Re ason For [...] the left vertebral artery. Procedure Carotid Duplex 14394. Exam performed in department. 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 Mild (<50%) stenosis left extracranial internal carotid. Flow within the vertebral arteries is antegrade bilaterally. Ordering Physician: Samia Dominguez Referring Physician: Samia Dominguez Performed By: Edyta Aden, RALPH, RVT 11/05/162013 Date John Owens MD CC: Samia Dominguez MD Date Dictated: 11/01/16856 Date Transcribed: 11/05/162013 Photographic Platemaker: Signed 24-Jun-2016 Abdomen/Pelvis WITH Contrast Result: Comments: See Note; NOTES: [facility] Imaging Services [address] [place] [address] [place] 4d Abdomen/Pelvis WITH Contrast MR#: [id number] Acct: [id number] Name: JOSEPHINE AHUJA Rep #: [id number] : 1935 M 81 From: Rubi Burkett MD PCP: Samia Dominguez MD Status: REG CLI Study: Abdomen/Pelvis WITH Contrast Date of Exam: 06/24/16 Exam# [id number] Ordering Dr: Samia Dominguez MD STUDY: CT [...] at 14:51 EST Tel , Service support [phone], CC: Samia Dominguez MD Photographic Platemaker: Signed 24-Jun-2016 L/S Spine Min 4 Views Result: Comments: See Note; NOTES: [facility] Imaging Services [address] [place] [address] [place] 4d L/S Spine Min 4 Views MR#: [id number] Acct: [id number] Name: MOISES AHUJA Rep #: [id number] : 1935 M 81 From: Dionisio Brown MD PCP: Samia Dominguez MD Status: REG CLI Study: L/S Spine Min 4 Views Date of Exam: 06/24/16 Exam# [id number] Ordering Dr: Samia Dominguez MD [facility] DY: X-RAY - LUMBAR SPINE REASON FOR [...] Cortez at 16:43 EST , Service support [phone], CC: Samia Domingeuz MD Photographic Platemaker: Signed 11-Oct-2015 Abdomen WITH IV Contrast Result: Comments: See Note; NOTES: [facility] Imaging Services [address] [place] [address] Verdana 4d Abdomen WITH IV Contrast MR#: [id number] Acct: [id number] Name: MOISES ANDERSON Rep #: [id number] : 1935 80 From: Abdoulaye Garcia MD PCP: Samia Dominguez MD Status: REG CLI Study: Abdomen WITH IV Contrast Date of Exam: 10/11/15 Exam# [id number] Ordering D r: Samia Dominguez MD STUDY: [...] the body of the pancreas. Electronically Signed: Abdoulyae Garcia MD at 9:34 EDT Tel [phone], Service support [phone], CC: Samia Dominguez MD Photographic Platemaker: Signed 05-Jul-2015 CTA Head W/WO Contrast Result: Comments: See Note; NOTES: [facility] Imaging Services [address] [place] [address] Verdana 4d CTA Head W/WO Contrast MR#: [id number] Acct: [id number] Name: MOISES HOWARD Rep #: [id number] : 1935 80 From: Abdoulaye Garcia MD PCP: Samia Dominguez MD Status: REG CLI Study: CTA Head W/WO Contrast Date of Exam: 07/05/15 Exam# [id number] Ordering Dr: Samia Carreon MD STUDY: CTA [...] There is no demonstrated aneurysm of the [place]. There is no demonstrate d abnormality of the visualized brain. IMPRESSION: Normal [place] without a demonstrated aneurysm or hemodynamically significant stenosis. Electronica lly Signed: Abdoulaye Garcia MD at 8:07 EST Tel [phone], Service support [phone], CC: Samia Dominguez MD Photographic Platemaker: Signed 05-Jul-2015 CTA Neck W/WO Contrast Result: Comments: See Note; NOTES: [facility] Imaging Services [address] [place] [address] Verdana 4d CTA Neck W/WO Contrast MR#: [id number] Acct: [id number] Name: MIKE CICI LiebermanMOISES C Rep #: [id number] : 1935 M 80 From: Abdoulaye Garcia MD PCP: Samia Dominguez MD Status: REG CLI Study: CTA Neck W/WO Contrast Date of Exam: 07/05/15 Exam# [id number] Ordering Dr: Samia Carreon MD STUDY: CTA [...] Abdoulaye Garcia MD at 8:06 EST Tel [phone], Service support [phone], CC: Samia Dominguez MD Photographic Platemaker: Signed 09-Jun-2015 Carotid Duplex Ultrasound Result: Comments: See Note; NOTES: [facility] Cardiovascular Services [address] [place] [address] Carotid Duplex Ultrasound 06/09/15 1012 MR#: [id number] Acct: [id number] Name: OMISES AHUJA Rep #: [id number] : 1935 80 From: Low Hernandez MD Attending Dr: Samia Dominguez MD Status: REG CLI Ordering Dr: Samia Dominguez MD Date: 06/09/15 Location: [facility] Sex: M C Admitted: Rt. Velocities/BP Lt. [...] Lt Vert A. Procedure Caroti d Duplex 05179. Exam performed in department. Interpretation Summary The [...] Samia Dominguez M.D. Performed By: Edyta Aden, YANELICS, RVT 06/09/152201 Date Low Hernandez MD CC: Samia Dominguez MD Date Dictated: 06/09/15 1012 Date Transcribed: 06/09/152201 Photographic Platemaker: Signed 21-Apr-2015 Emergency Department Summary Result: Comments: See Note; NOTES: [facility] Medical Records Department [address] [place] [address] Emergency Department Summary 04/20/15 2316 MR#: [id number] Acct: [id number] Name: MOISES AHUJA Rep #: [id number] : 1935 80 From: Leo Gunn MD [...] History (1) Benign positional vertigo Status: Resolved [facility] Medical History - Allergies and Home Meds [...] Sensation, Normal DTR, Normal Gait, - - Mobeetie-Hallpike maneuver was positive. Symptoms worse with turning head to th e left. Fast component noted to the right. Did not appreciate an initial upward deflection. Psychological: Normal affect Diagnostic/Tx/Re-eval - Medical Decision Making Stroke Team Activated: No IV TPA Administered: No Intraarterial Therapy: No Patient's symptoms were suggestive of paroxysmal benign positional vertigo. Patient did have a positive Mobeetie Hallpike maneuver. An Jimmy maneuver was performed. Patient's i-STAT was did fatigue. He will be observed and ambulated to assure safety prior to discharge. 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 Patient was ambulated and is symptom-free., 2355 ED Disposition - Plan for ED Patient: Disposition: Home or Assisted Xander marin Chief Complaint: Dizziness Diagnosis: Acute paroxysmal benign positional verti Instructions: ED Benign Positional Vertigo Referrals: Samia Dominguez MD [Primary Care Provider] - As Needed What to do if you have Problems For any increased pain, shortness of breath, bleeding, nausea or vomiting, chest pain, or any unexpected problems, contact your doctor. Call [facility] ([phone] ) or report to the closest Emergency Room. Call 911 if necessary. 04/21/15 0010 <Electronically signed by Leo Gunn MD> Date Leo Gunn MD Cosigner Signature (If Indicated): Date CC: Gallo Fraser MD; Samia Dominguez MD 14-Apr-2015 PT D/C Summary Result: Comments: See Note; NOTES: [facility] Physical Therapy [address] [place], [place] [address] Fax [facility] MR#: [id number] Acct: [id number] Name: MOISES AHUJA Rep #: [id number] : 1935 80 From: Ashok Nolasco Referring Dr.: Samia Dominguez MD Status: REG RCR Eval Date: Discharge Date: HP - PT D/C Summary It has been my pleasure to treat MOISES AHUJA under orders from Samia Dominguez, for the diagnosis of C/S disc degeneration for a total of 5 visit(s). Darrell lieberman see the following information for [...] please feel free to call me at [phone]. Thank you for the referral of this patient. Sincerely, Ashok Nolasco <Electronically jose d by Ashok Nolasco > 04/14/15 0641 CC: Samia Dominguez MD EBG Signed 03-Apr-2015 Inital Evaluation - PT Result: Comments: See Note; NOTES: [facility] [address] [place] [address]. [address] [place] [address] Fax [facility] IN[facility]IAL [facility] MR#: [id number] Acct: [id number] Name: MOISES AHUJA Rep #: [id number] : 1935 80 From: Ashok Nolasco Referring Dr.: Samia Dominguez MD Status: REG RCR Insurance: MEDICARE PART A B Eval Date: ANTH Patient's Visit Information MOISES AHUJA is a [...] to be FAXED BACK to us at [phone] for Medicare purposes. Please let me know if there are questions or concerns regarding this plan of care. Physician Signature: Date: <Electronically signed by Ashok Nolasco > 04/03/15 0650 CC: Samia Dominguez MD DD: 1 06/01/14 EBG Signed For Medicare only, by signing this I certify the plan of care. Physicians Signature Date 08-Dec-2014 Abdomen/Pelvis W IV Cont ONLY Result: Comments: See Note; NOTES: [facility] [place] Imaging Services [address] [place] [address] CAT Scan Report MR#: [id number] Acct: [id number] Name: MOISES AHUJA Rep #: [id number] : 1935 M 79 From: Abdoulaye Garcia MD PCP: Samia Dominguez MD Status: REG CLI Study: Abdomen/Pelvis W IV Cont ONLY Date of Exam: 12/08/14 Exam# [id number] Ordering Dr: Samia Dominguez MD STUDY: CT [...] Manish Garcia MD at 13:51 EDT Tel [phone], Service support [phone], CC: Samia Dominguez MD Photographic Platemaker: Signed 21-Jan-2014 PT Discharge Summary Result: Comments: See Note; NOTES: [facility] [address] [place] [address]. [address] [place] [address] Fax REHABILITATION SERVICES DISCHARGE SUMMARY MR#: [id number] Acct: [id number] Name: MIKELuisanaMOISES Rep #: [id number] : 1935 78 From: Ashok Nolasco Referring DrKarl: OUT OF TOWN DOCTOR Status: DIS RCR Eval Date: Dischnichole rgluisana Date: 11/25/13 DATE OF SERVICE: DIAGNOSIS: Neck pain and neck strain. Moises Ahuja was seen in my office for a total of 3 visits. He was seen initially on November 10, 2013, where instructio n in appropriate home exercise program for [...] care. Ashok Nolasco, PT T: NTS JOB: [id number] <Electronically signed by Ashok Nolasco > 01/21/14 0646 CC: Signed 11-Nov-2013 Inital Evaluation - PT Result: Comments: See Note; NOTES: [facility] [address] [facility]. [address] [place] [address] Fax REHABILITATION SERVICES INITIAL EVALUATION MR#: [id number] Acct: [id number] Name: MOISES AHUJA Rep #: [id number] : 1935 78 From: Ashok Nolasco Referring DrKarl: OUT OF TOWN DOCTOR Status: REG RCR Insurance: MEDIC ARE PART A B Eval Date: ANTHEM DATE OF SERVICE: 11/10/2013 DIAGNOSIS: Neck strain. REFERRED BY: Jace Jones, physician's ssn/ssbn assistant navigator. SUBJECTIVE: Moises Ahuja is a 78-year-old male, [...] course of therapy. Ashok Nolasco, PT T: MARCEL JOB: [id number] <Electronically signed by Ashok Nolasco > 11/11/13 0651 CC: Signed For Medicare only, by signing this I certify the plan of care. Physicians Signature Date 25-Oct-2013 Abdomen/Pelvis WITH Contrast Result: Comments: See Note; NOTES: [facility] [place] Imaging Services [address] [place] [address] CAT Scan Report MR#: [id number] Acct: [id number] Name: MOISES AHUJA Rep #: [id number] : 1935 M 78 From: Harsha Pabon MD PCP: Samia Dominguez MD Status: REG CLI Study: Abdomen/Pelvis WITH Contrast Date of Exam: 10/25/13 Exam# [id number] Ordering Dr: Tacho De Luna MD STUDY: [...] at 19:52 EDT , Service s upport [phone], CC: Samia Dominguez MD; Tacho De Luna MD Photographic Platemaker: Signed 05-Aug-2013 PT Discharge Summary Result: Comments: See Note; NOTES: [facility] [facility]. [address] [place] [address] Fax REHABILITATION SERVICES DISCHARGE SUMMARY MR#: [id number] Acct: [id number] Name: MOISES AHUJA Rep #: [id number] : 1935 78 From: Ashok Nolasco Referring [...] doing well and ready to be done [facility] physical therapy. Objectively, he has [...] program. Ashok Nolasco, PT T: MARCEL JOB: [id number] <Electronically s igned by Ashok Nolasco > 08/05/13 0934 CC: Signed 21-Jul-2013 Inital Evaluation - PT Result: Comments: See Note; NOTES: [facility] [address] [place] [address]. [address] [place] [address] Fax REHABILITATION SERVICES INITIAL EVALUATION MR#: [id number] Acct: [id number] Name: MOISES AHUJA Rep #: [id number] : 1935 78 From: Ashok Nolasco Referring [...] appropriate home cervical range-of-m otion exercises, scapular zzivr-jc-xctzhr exercises and management of his condition. I [...] of CI . Ashok Nolasco, PT T: NTS JOB: [id number] <Electronically signed by Ashok Nolasco > 07/21/13 0740 CC: Signed For Medicare only, by signing this I certify the plan of care. Physicians Signature Date 14-Jul-2013 Dexa Bone Density Study (HP) Result: Comments: See Note; NOTES: [facility] [place] Imaging Services [address] [place] [address]67 Bone Density Report MR#: [id number] Acct: [id number] Name: MOISES AHUJA Rep #: [id number] : 1935 M 78 From: Abdoulaye Garcia MD PCP: Samia Dominguez MD Status: REG CLI Study: Dexa Bone Density Study (HP) Date of Exam: 07/14/13 Exam# [id number] Ordering Dr: Samia Dominguez MD STUDY: DUAL [...] M.D. at 15:48 EDT , Service support [phone], CC: Samia Dominguez MD Photographic Platemaker: Signed Immunization Name Dates Details Influenza (3 years and up) on: 31-Jan-2009 Influenza, split virus, preserv. free, intradermal Comments: in hospital 02-07 Pneumococcal conjugate vaccine, 13 valent, IM on: [...] Inactive Vital Signs Date Test Result Details 30-Ixu-804354:00 Pulse 70 /min Comments: Pattern: Regular BP Systolic 150 mm[Hg] Comments: Patient Position: Standing; Cuff Location: Left Arm; Cuff Size: Standard BP Diastolic 80 mm[Hg] Comments: Patient Position: Standing; Cuff Location: Left Arm; Cuff Size: Standard 19-Mzj-387508:00 Pulse 68 /min Comments: Pattern: Regular BP Systolic 140 mm[Hg] Comments: Patient Position: Sitting; Cuff Location: Left Arm; Cuff Size: Standard BP Diastolic 80 mm[Hg] Comments: Patient Position: Sitting; Cuff Location: Left Arm; Cuff Size: Standard 26-Lie-754277:59 Temperature 97.6 f Comments: Method: Temporal Pulse [...] kg/m2 Body Surface Area Calculated 2.06 m2 35-Xln-708453:20 Temperature 96.8 f Comments: Method: Temporal Pulse [...] kg/m2 Body Surface Area Calculated 2.03 m2 :21 Temperature 97.9 f Comments: Method: Oral Pulse [...] Description Value Details :30 HgA1C , Office (05978) HgA1C , Office 5.2 % (Normal) Range: 4.6 - 7.1 :47 LIPOPROTEIN, BLD, BY NMR Comments: PATIENT WAS FASTINGPERFORMED BY: BN [facility] [address] [id number] BY: CB [facility] Ytjdfy9819 [facility] [id number] (23996) LP-IR Score 52 (Abnormal) Comments: INSULIN RESISTANCE MARKER <--Insulin Sensitive Insulin Resistant--> Percentile in Reference PopulationInsulin Resistance ScoreLP-IR Score Low 25th 50th 75th High <27 27 45 63 >63LP-IR Score is inaccurate if patient is non-fasting. .The LP-IR score is a laboratory developed i [facility] that has beenassociated with insulin resistance and [...] were developed and their performance characteristicsdetermined by [employer]. These assays have not been cleared by [...] 1600 - 2000 Very High > 2000 02-Feb-20189:47 CBC with auto diff Comments: PATIENT WAS FASTINGPERFORMED BY: BN [facility] Wujwktsbmk8163 [facility] [id number] BY: CB [facility] Djcdkx6789 [facility] [id number] (82036) Immature Grans (Abs) 0.0 {x10E3/uL} (Normal) Range: [...] PANEL, Comments: PATIENT WAS FASTINGPERFORMED BY: [facility] [address] [id number] BY: [facility] [address] [id number] [facility] ([address]399) ALT (SGPT) 18 [iU]/L (Normal) Range: 0-44 [...] (Prostate Specific Comments: PATIENT NOT FASTINGPERFORMED BY: [facility]6370 [facility] [id number] Antigen), Screening (70470) Prostate Specific Ag, 1.4 ng/mL (Normal) Range: 0.0-4.0 Serum Comments: nPicker ECLIA methodology. .According to the [place] [employer] Association, Serum PSA shoulddecrease and remain at undetectable levels after radicalprostatectomy. The AUA defines biochemical recurrence as an initialPSA value 0.2 ng/mL or greater followed by a subsequent confirmatoryPSA value 0.2 ng/mL or greater.Values obtained with d ifferent assay methods or kits cannot be usedinterchangeably. Results cannot be interpreted as absolute evidenceof the presence or absence of malignant disease. 33-Cns-731253:03 CBC W/Diff, Automated Comments: Order Date: 10/21/17Order Info: [id number] - CBCDComments: statOrder Info: 75845-3 - [facility] [address] [place], [address] Absolute Lymph 1.20 {X10_3/ul} (Normal) Range: 0.83-4.51 [...] 4.6-6.2 WBC 5.0 K/mm3 (Normal) Range: 4.4-11.0 38-Uba-118368:03 Comprehensive Metabolic Profil Comments: Order Date: 10/21/17Order Info: [id number] - CMPOrder Info: 65335-0 - CRPComments: statComments: [facility] [address]dcpsjs55[address] [place], [address] GAP 9 (Normal) Range: 5-15 CO2 30.0 [...] Comments: Please note revised GLUCOSE reference range cthuwetlr95/02/2018. 67-Jci-728221:03 Erythrocyte Sed Rate Comments: Order Date: 10/21/17Order Info: 0184-1 - CBCDComments: statOrder Info: 04938-9 - [facility] [address]vhtlx[address] [place], [place], [address](656) SED RATE 8 mm/h (Normal) Range: 0-20 22-Htv-100850:03 C-REACTIVE PROTEIN (43418) Comments: stat; Order Date: 10/21/17Order Info: [id number] - CMPOrder Info: 70168-2 - CRPComments: statComments: [facility] [address] [place], [address] C-REACTIVE PROT 30.20 mg/L (Abnormal) Range: 0.0-3.0 Comments: C-Reactive Protein (CRP) provides useful information for thediagnosis, therapy and monitoring of inflammatory processesand associated diseases. For the evaluation of Relative Riskfor Cardiovascular Dise ase, a High Sensitivity CRP (HSCRP)should be ordered. 77-Nin-171765:25 Clostridium difficile Toxin Comments: PATIENT NOT FASTINGPERFORMED BY: [facility] Hbhxcm4455 [facility] [id number] A+B, EIA (77084) C difficile Toxins A+B, EIA Positive (Abnormal) 20-Fux-571888:25 AMADA CULTURE-STOOL (67755) Comments: PATIENT NOT FASTINGPERFORMED BY: [facility] Ypfcrn1721 [facility] [id number] Information: SRC:ST SRC:ST E coli Shiga Toxin EIA Negative (Normal) Result 1 NCI (Normal) Comments: No Campylobacter species isolated. Campylobacter Culture Final report (Normal) Result 1 NSS (Normal) Comments: No Salmonella or Shigella recovered. Salmonella/Shigella Screen Final report (Normal) 21-Hsd-910222:03 TSH (37609) Comments: PATIENT NOT FASTINGPERFORMED BY: [facility] Bfnepz1129 [facility] [id number] TSH 2.980 {uIU/mL} (Normal) Range: 0.450-4.500 52-Niu-624516:03 Metabolic Panel, Basic Comments: PATIENT NOT FASTINGPERFORMED BY: [facility] GroupSsm Rehab Uhnesn6991 [facility] [id number] (16398) Calcium 9.5 mg/dL (Normal) Range: 8.6-10.2 Carbon [...] 8-27 Glucose 91 mg/dL (Normal) Range: 65-99 16-Ttt-281191:03 CBC with auto diff (54932) Comments: PATIENT NOT FASTINGPERFORMED BY: [facility] Frtice5278 [facility] [id number] Immature Grans (Abs) 0.0 {x10E3/uL} (Normal) Range: [...] 4.14-5.80 WBC 5.4 {x10E3/uL} (Normal) Range: 3.4-10.8 4-Iks-178314:34 HgA1C , Office (81440) HgA1C , Office 5.4 % (Normal) Range: 4.6 - 7.1 55-Vzk-433448:56 Rapid Flu (09800 x 2) Influenza A Ag Negative (Normal) 12-Tlu-919282:21 FERRITIN (25758) Comments: PATIENT NOT FASTINGPERFORMED BY: LabCoJFK Johnson Rehabilitation InstituteJcvhsj6544 [facility] [id number] Ferritin, Serum 139 ng/mL (Normal) Range: 30-400 46-Oct-041801:21 HEPATITIS PANEL (01716) Comments: PATIENT NOT FASTINGPERFORMED BY: RivalSoftJFK Johnson Rehabilitation InstituteLrrtpj9306 [facility] [id number] Hep C Virus Ab <0.1 {s/co_ratio} (Normal) Range: 0.0-0.9 Comments: Negative: < 0.8 Indeterminate: 0.8 - 0.9 Positive: > 0.9 . The CDC recommends that a positive HCV antibody result be followed up with a HCV Nucleic Acid Amplification test (683947). Hep B Core Ab, IgM Negative (Normal) HBsAg Screen Negative (Normal) Hep A Ab, IgM Negative (Normal) 30-Pqc-375245:21 HEPATIC FUNCTION PANEL Comments: PATIENT NOT FASTINGPERFORMED BY: [employer] Rkisuk2591 [facility] [id number] (33294) ALT (SGPT) 33 [iU]/L (Normal) Range: 0-44 AST (SGOT) 23 [iU]/L (Normal) Range: 0-40 Alkaline Phosphatase, S 68 [iU]/L (Normal) Range: 39-117 Bilirubin, Direct 0.11 mg/dL (Normal) Range: 0.00-0.40 Bilirubin, Total 0.4 mg/dL (Normal) Range: 0.0-1.2 Albumin, Serum 4.2 g/dL (Normal) Range: 3.5-4.7 Protein, Total, Serum 7.4 g/dL (Normal) Range: 6.0-8.5 :22 HgA1C , Office (77455) HgA1C , Office 5.2 % (Normal) Range: 4.6 - 7.1 :18 AMADA CULTURE-OTHER (48544) Comments: PATIENT NOT FASTINGPERFORMED BY: [facility] Business GroupMunson Healthcare [facility]6370 [facility] [id number] Information: SRC:TH Result 1 RRF (Normal) Comments: Routine respiratory jose antonio Upper Respiratory Culture Final report (Normal) :21 Rapid Strep Test, Office (98859) Rapid Strep Test, Office Negative (Normal) :40 Microscopic Examination Comments: PATIENT WAS FASTINGPERFORMED BY: [facility] [id number] BY: RivalSoftJFK Johnson Rehabilitation InstituteHynpqe4007 [facility] [id number] Bacteria None seen (Normal) Mucus Threads Present (Normal) Epithelial Cells (non renal) None seen {/hpf} (Normal) Range: 0 - 10 RBC 0-2 {/hpf} (Normal) Range: 0 - 2 WBC 0-5 {/hpf} (Normal) Range: 0 - 5 50-Avx-13477:19 AMADA CULTURE-OTHER (96435) Comments: PATIENT NOT FASTINGPERFORMED BY: RivalSoftJFK Johnson Rehabilitation InstitutePfnlra5422 [facility] [id number] Information: SRC:TH Result 1 RRF (Normal) Comments: Routine respiratory jose antonio Upper Respiratory Culture Final report (Normal) 75-Rzj-168153:27 Rapid Strep Test, Office (02439) Rapid Strep Test, Office Negative (Normal) 18-Ngc-66431:40 URINALYSIS, W/ MICRO Comments: PATIENT WAS FASTINGPERFORMED BY: uchoose[address] [id number] BY: RivalSoftJFK Johnson Rehabilitation InstituteJkbqzc7252 [facility] [id number] (33340) Microscopic Examination See below: (Normal) Comments: Microscopic was indicated and was performed. Nitrite, Urine Negative (Normal) Urobilinogen,Semi-Qn 0.2 mg/dL (Normal) Range: 0.2-1.0 Bilirubin Negative (Normal) Occult Blood Negative (Normal) Ketones Negative (Normal) Glucose Negative (Normal) Protein Negative (Normal) WBC Esterase Trace (Abnormal) Appearance Clear (Normal) Urine-Color Yellow (Normal) pH 6.0 (Normal) Range: 5.0-7.5 Specific Aubrey 1.023 (Normal) Range: 1.005-1.030 :40 METABOLIC PANEL, Comments: PATIENT WAS FASTINGPERFORMED BY: RivalSoft[address] [id number] BY: RivalSoftJFK Johnson Rehabilitation InstituteVxjrcv8874 [facility] [id number] COMPREHENSIVE (47274) ALT (SGPT) 50 [iU]/L (Abnormal) Range: 0-44 [...] Glucose, Serum 94 mg/dL (Normal) Range: 65-99 25-Mwl-28197:40 LIPOPROTEIN, BLD, BY NMR Comments: PATIENT WAS FASTINGPERFORMED BY: BN [facility] [address] [id number] BY: CB [facility] Tcvdxy2141 [facility] [id number] (08935) LP-IR Score 64 (Abnormal) Comments: INSULIN RESISTANCE MARKER <--Insulin Sensitive Insulin Resistant--> Percentile in Reference PopulationInsulin Resistance ScoreLP-IR Score Low 25th 50th 75th High <27 27 45 63 >63LP-IR Score is inaccurate if patient is non-fasting. .The LP-IR score is a laboratory developed i ndex that has beenassociated with insulin resistance and [...] 1600 - 2000 Very High > 2000 28-Ric-92206:40 CBC with auto diff Comments: PATIENT WAS FASTINGPERFORMED BY: RivalSoftDeanna [place] 137577 [facility] [id number] BY: ADRIANA LabEquidam Ycwicv8332 [facility] [id number] (59271) Immature Grans (Abs) 0.0 {x10E3/uL} (Normal) Range: [...] 4.14-5.80 WBC 4.9 {x10E3/uL} (Normal) Range: 3.4-10.8 79-Bxj-13874:40 CALCIFIDIOL (65268) VIT D Comments: PATIENT WAS FASTINGPERFORMED BY: RivalSoftThe Rehabilitation Hospital of Tinton FallsCkqvtzeixs6109 [facility] [id number] BY: LabMunson Healthcare [facility] Hospital6370 [facility] [id number] 25 Vitamin D, 25-Hydroxy 34.5 ng/mL (Normal) Range: 30.0-100.0 Comments: Vitamin D deficiency has been defined by the [place] of[place]icine and an Endocrine Society practice guideline as alevel of serum 25-OH vitamin D less than 20 ng/mL (1,2).The Endocrine Society went on to further define vitamin Dinsufficiency as a level between 21 and 29 ng/mL (2).1. IOM ([place] of Medicine). 2010. Dietary reference intakes for calcium and D. [place]: The National Academies Press.2. Fernando MF, Cedric NC, Teresa ALBERTS, et al. Evaluation, treatment, and prevention of vitamin D deficiency: an Endocrine Society clinical practice guideline. JCEM. 2010; 96(7):1911-30. :40 serum immunofixation (36368) Comments: PATIENT WAS FASTINGPERFORMED BY: [address] [id number] BY: [facility]6370 [facility] [id number] Immunoglobulin M, Qn, Serum 107 mg/dL (Normal) Range: 15-143 Immunoglobulin A, Qn, Serum 503 mg/dL (Abnormal) Range: 61-437 Immunoglobulin G, Qn, Serum 1199 mg/dL (Normal) Range: 700-1600 Immunofixation Result, Serum UPEIP (Normal) Comments: No monoclonality detected. :18 Metabolic Panel, Comprehensive Comments: PATIENT WAS FASTINGPERFORMED BY: RivalSoftJFK Johnson Rehabilitation InstituteDyyaqh1898 [facility] [id number] (66700) ALT (SGPT) 25 [iU]/L (Normal) Range: 0-44 [...] CREATININE RATIO Comments: PATIENT WAS FASTINGPERFORMED BY: [employer]6370 [employer] Developmentformerly [facility] [id number] (21865) AND (90158) Microalb/Creat Ratio 5.6 {mg/g_creat} (Normal) Range: 0.0-30.0 Microalbumin, Urine 9.6 ug/mL (Normal) Creatinine, Urine 172.5 mg/dL (Normal) :18 URINALYSIS (66100) Comments: PATIENT WAS FASTINGPERFORMED BY: [employer]70 [place] [employer] Developmentformerly [facility] [id number] Microscopic Examination MICNIP (Normal) Comments: Microscopic not indicated and not performed. Nitrite, Urine Negative (Normal) Urobilinogen,Semi-Qn 0.2 mg/dL (Normal) Range: 0.2-1.0 Bilirubin Negative (Normal) Occult Blood Negative (Normal) Ketones Negative (Normal) Glucose Negative (Normal) Protein Negative (Normal) WBC Esterase Negative (Normal) Appearance Clear (Normal) Urine-Color Yellow (Normal) pH 7.0 (Normal) Range: 5.0-7.5 Specific Aubrey 1.020 (Normal) Range: 1.005-1.030 :18 CBC WITH MANUAL DIFF Comments: PATIENT WAS FASTINGPERFORMED BY: ADRIANA RivalSoftJFK Johnson Rehabilitation InstituteJghzjj6261 [facility] [id number] Information: NURSE DRAW; fu 6-26 db (54281) Immature Grans (Abs) 0.0 {x10E3/uL} (Normal) Range: [...] {x10E3/uL} (Normal) Range: 3.4-10.8 :57 C-REACTIVE PROTEIN (32132) Comments: PATIENT NOT FASTINGPERFORMED BY: Inf[facility] Business GroupMunson Healthcare [facility] Hospital6370 [facility] [id number] C-Reactive Protein, Quant 0.7 mg/L (Normal) Range: 0.0-4.9 :57 ESR-F (SED RATE ERYTHROCYTE - Comments: PATIENT NOT FASTINGPERFORMED BY: [employer] Gglmol4765 [facility] [id number] MALE) (02067) Sedimentation Rate-Westergren 5 mm/h (Normal) Range: 0-30 :01 PSA,Total- Diagnostic Comments: [facility] [address] [place], [address] PSA, DIAGNOSTIC 1.09 ng/mL (Normal) Range: 0.0-4.0 Comments: This test was performed using the TPSA assay method for theBreathalEyes chemistry system. Values obtained with differentassay methods cannot be used interchangably.When changing PSA assays in the course of monitoring apatient, additional sequential testing should be carriedout to confirm baseline values. 46-Cwq-259950:29 HgA1C , Office (02855) HgA1C , Office 5.2 % (Normal) Range: 4.6 - 7.1 :03 serum immunofixation (33469) Comments: PATIENT NOT FASTINGPERFORMED BY: [employer] Ukrpri0163 [facility] [id number] Information: NURSE DRAW Immunoglobulin M, Qn, Serum 115 mg/dL (Normal) Range: 15-143 Immunoglobulin A, Qn, Serum 504 mg/dL (Abnormal) Range: 61-437 Immunoglobulin G, Qn, Serum 1218 mg/dL (Normal) Range: 700-1600 Immunofixation Result, Serum UPEIP (Normal) Comments: No monoclonality detected. :03 Vitamin B-12 (cyanocobalamin) Comments: PATIENT NOT FASTINGPERFORMED BY: RivalSoftJFK Johnson Rehabilitation InstituteRrypyi7778 [facility] [id number] (27340) Vitamin B12 1249 pg/mL (Abnormal) Range: 211-946 :42 Microscopic Examination Comments: PATIENT WAS FASTINGPERFORMED BY: [employer] [id number] BY: [employer] Jycvuk1565 [address] Roadblin [place] [id number] Bacteria None seen (Normal) Mucus Threads Present (Normal) Epithelial Cells (non renal) None seen {/hpf} (Normal) Range: 0 - 10 RBC 0-2 {/hpf} (Normal) Range: 0 - 2 WBC 0-5 {/hpf} (Normal) Range: 0 - 5 :24 PSA (PROSTATE SPECIFIC Comments: copy to Dr. de luna; PATIENT WAS FASTINGPERFORMED BY: [employer] iTherXblin [place] [id number] ANTIGEN) (V76.44) Prostate Specific Ag, 1.1 ng/mL (Normal) Range: 0.0-4.0 Serum Comments: Vickers ElectronicsIA methodology. .According to the [place] U[employer] Association, Serum PSA shoulddecrease and remain at undetectable levels after radicalprostatectomy. The AUA defines biochemical recurrence as an initialPSA value 0.2 ng/mL or greater followed by a subsequent confirmatoryPSA value 0.2 ng/mL or greater.Values obtained with d ifferent assay methods or kits cannot be usedinterchangeably. Results cannot be interpreted as absolute evidenceof the presence or absence of malignant disease. :25 MAGNESIUM (18841) Comments: PATIENT WAS FASTINGPERFORMED BY: [employer] Wmpdrv9094 [address]bl[place] [id number] Magnesium, Serum 2.3 mg/dL (Normal) Range: 1.6-2.3 :25 Vitamin B-12 (cyanocobalamin) Comments: PATIENT WAS FASTINGPERFORMED BY: [employer] Tfqsuq8827 [address] [id number]; fu 3-24 db (01453) Vitamin B12 1271 pg/mL (Abnormal) Range: 211-946 7-Rsu-482611:06 Prostate-Specific Ag, Serum Comments: PATIENT NOT FASTINGPERFORMED BY: [employer] Hjxmpw6739 [address] [facility] Hospital-PontiacMediasurfaceblin [place] [id number] Information: I62694, 581432 Prostate Specific Ag, 0.9 ng/mL (Normal) Range: 0.0-4.0 Serum Comments: Teresa ECLIA methodology. .According to the [place] U[employer] Association, Serum PSA shoulddecrease and remain [...] WAR (Normal) Comments: PATIENT NOT FASTINGPERFORMED BY: [employer] Jbrxvb3396 [address] [facility]atoNov[facility] [id number] 2:06 Comments: Written Authorization Received.Authorization received from ABDIEL DUTTA LPN 43-06-0036Trbhgl by Megan Oneill 2-Xbv-444917:06 SPE (26181) Comments: PATIENT NOT FASTINGPERFORMED BY: [facility] Lhaxab7041 [facility] [id number] Information: Y48580, 328087; fu 3-24 Please note: SPRCS (Normal) Comments: Protein electrophoresis scan will follow via computer, mail, orcourier delivery. A/G Ratio 0.9 (Normal) Range: 0.7-1.7 Globulin, Total 3.8 g/dL (Normal) Range: 2.2-3.9 M-Gagandeep Not Observed g/dL (Normal) Gamma Globulin 1.5 g/dL (Normal) Range: 0.4-1.8 Beta Globulin 1.4 g/dL (Abnormal) Range: 0.7-1.3 Zvjph-3-Rpejjkbs 0.8 g/dL (Normal) Range: 0.4-1.0 Akvdx-9-Oqjpddav 0.2 g/dL (Normal) Range: 0.0-0.4 Albumin 3.6 g/dL (Normal) Range: 2.9-4.4 Protein, Total, Serum 7.4 g/dL (Normal) Range: 6.0-8.5 30-Gzh-405003:26 Amylase Comments: [facility] [address] [place], [address] RONY 52 U/L (Normal) Range: 25-115 48-Vjv-332656:26 CBC W/Diff, Automated Comments: [facility] Ekmbqnilzh[address] [place], [place], [id number] Absolute Lymph 1.93 {X10_3/ul} (Normal) Range: 0.83-4.51 [...] 4.6-6.2 WBC 7.0 K/mm3 (Normal) Range: 4.4-11.0 28-Oun-953520:26 Comprehensive Metabolic Profil Comments: [facility] [address] [place], [place], [id number] GAP 7 (Normal) Range: 5-15 CO2 30.0 [...] 7-18 GLU 89 mg/dL (Normal) Range: 70-110 62-Wss-582669:26 Culture, Urine Comments: [facility] [address] [place], [address] CUUR See Note (Normal) Comments: Urine CultureCulture exhibits no growth. 59-Unk-277177:26 Lipase Comments: [facility] [address] [place], [address] LIPASE 205 U/L (Normal) Range: 73-393 19-Gku-551304:56 URINE AMADA CULTURE-IDENTIFICATN Comments: PATIENT NOT FASTINGPERFORMED BY: [facility] Ppwwhl7287 [facility] [id number] Information: SRC:MALLORY (72708) Result 1 NG36 (Normal) Comments: No growth in 36 - 48 hours. Urine Culture,Comprehensive Final report (Normal) 74-Jiz-252853:22 Urinalysis, Office (10172) UA - LEUKOCYTE ESTERASE Negative (Normal) UA - NITRITE Negative (Normal) URINE UROBILINGN RENÉE TIMED Normal mg/dL (Normal) UA - PROTEIN Negative mg/dL (Normal) UA - PH 6 (Abnormal) UA - BLOOD Negative (Normal) UA - SPECIFIC GRAVITY 1.005 (Normal) UA - KETONES Negative mg/dL (Normal) UA - BILIRUBIN Negative (Normal) UA - GLUCOSE Negative (Normal) :42 CALCIFIDIOL (88421) VIT D Comments: PATIENT WAS FASTINGPERFORMED BY: [employer] (formerly [employer])[address] [id number] BY: [employer] [facility] [id number] 25 Vitamin D, 25-Hydroxy 30.1 ng/mL (Normal) Range: 30.0-100.0 Comments: Vitamin D deficiency has been defined by the [facility] [facility] and an Endocrine Society practice guideline as alevel of serum 25-OH vitamin D less than 20 ng/mL (1,2).The Endocrine Society went on to further define vitamin Dinsufficiency as a level between 21 and 29 ng/mL (2).1. IOM ([place] of Medicine). 2010. Dietary reference intakes for calcium and D. [place]: The National Academies Press.2. Fernando MF, Cedric AGUIAR, Teresa ALBERTS, et al. Evaluation, treatment, and prevention of vitamin D deficiency: an Endocrine Society clinical practice guideline. JCEM. 2010; 96(7):1911-30. 59-Nwv-23958:42 URINALYSIS, W/ MICRO Comments: PATIENT WAS FASTINGPERFORMED BY: [employer] (formerly [employer])[address] [id number] BY: [employer] Hhmooh4949 [facility] [id number] (91967) Microscopic Examination See below: (Normal) Comments: Microscopic was indicated and was performed. Microscopic Examination MICRON (Normal) Comments: Microscopic follows if indicated. Nitrite, Urine Negative (Normal) Urobilinogen,Semi-Qn 0.2 mg/dL (Normal) Range: 0.2-1.0 Bilirubin Negative (Normal) Occult Blood Negative (Normal) Ketones Negative (Normal) Glucose Negative (Normal) Protein Negative (Normal) WBC Esterase Negative (Normal) Appearance Clear (Normal) Urine-Color Yellow (Normal) pH 6.0 (Normal) Range: 5.0-7.5 Specific Aubrey 1.021 (Normal) Range: 1.005-1.030 55-Dyz-82606:42 METABOLIC PANEL, Comments: PATIENT WAS FASTINGPERFORMED BY: [facility] Yetasnpjnc9868 [facility] [id number] BY: CB [facility] Yiqxgk2757 [facility] [id number] [facility] (88829) ALT (SGPT) 22 [iU]/L (Normal) Range: 0-44 [...] Glucose, Serum 96 mg/dL (Normal) Range: 65-99 :42 LIPOPROTEIN, BLD, BY NMR Comments: PATIENT WAS FASTINGPERFORMED BY: BN [facility] Lusywourct8932 [facility] [id number] BY: CB [facility] Yaoapw6666 [facility] [id number] (75885) LP-IR Score 46 (Abnormal) Comments: INSULIN RESISTANCE MARKER <--Insulin Sensitive Insulin Resistant--> Percentile in Reference PopulationInsulin Resistance ScoreLP-IR Score Low 25th 50th 75th High <27 27 45 63 >63LP-IR Score is inaccurate if patient is non-fasting. .The LP-IR score is a laboratory developed i [facility] that has beenassociated with insulin resistance and [...] were developed and their performance characteristicsdetermined by [employer]. These assays have not been cleared by [...] 1600 - 2000 Very High > 2000 07-Avm-45814:42 CBC with auto diff Comments: PATIENT WAS FASTINGPERFORMED BY: BN [facility] Idsexlstnh4510 [facility] [id number] BY: CB [facility] Mjbycz6263 [facility] [id number]; fu 3-24 (68294) Immature Grans (Abs) 0.0 {x10E3/uL} (Normal) Range: [...] (Normal) Range: 3.4-10.8 :59 HgA1C , Office (26791) HgA1C , Office 5.4 % (Normal) Range: 4.6 - 7.1 :55 Metabolic Panel, Basic Comments: now before CT; PATIENT NOT FASTINGPERFORMED BY: RivalSoft[address] [id number] Information: [id number], [id number] (97437) Calcium, Serum 9.4 mg/dL (Normal) Range: 8.6-10.2 [...] BY NMR Comments: PATIENT WAS FASTINGPERFORMED BY: LabEquidamDeanna [place] 137577 [facility] [id number] BY: LabEquidam[address] [id number] Information: [id number], [id number]; fu 9- DB (92064) LP-IR Score 44 (Normal) Comments: INSULIN RESISTANCE MARKER <--Insulin Sensitive Insulin Resistant--> Percentile in Reference PopulationInsulin Resistance ScoreLP-IR Score Low 25th 50th 75th High <27 27 45 63 >63LP-IR Score is inaccurate if patient is non-fasting. .The LP-IR score is a laboratory developed i [facility] that has beenassociated with insulin resistance and [...] were developed and their performance characteristicsdetermined by [employer]. These assays have not been cleared by [...] 1600 - 2000 Very High > 2000 20-Dow-32059:42 METABOLIC PANEL, Comments: PATIENT WAS FASTINGPERFORMED BY: BN [facility] Epipnewbkv5566 [facility] [id number] BY: CB [facility] Umzhud1193 [facility] [id number] [facility] (48425) ALT (SGPT) 18 [iU]/L (Normal) Range: 0-44 [...] Glucose, Serum 92 mg/dL (Normal) Range: 65-99 :42 CBC with auto diff Comments: PATIENT WAS FASTINGPERFORMED BY: [address] [id number] BY: [place] 0892870 [facility] [id number] (98801) Immature Grans (Abs) 0.0 {x10E3/uL} (Normal) Range: [...] Microscopic Examination Comments: PATIENT NOT FASTINGPERFORMED BY: [place] 0892870 [facility] [id number] Bacteria None seen (Normal) Mucus Threads Present (Normal) Epithelial Cells (non renal) None seen {/hpf} (Normal) Range: 0 - 10 RBC 0-2 {/hpf} (Normal) Range: 0 - 2 WBC 0-5 {/hpf} (Normal) Range: 0 - 5 :48 PSA (PROSTATE SPECIFIC Comments: PATIENT NOT FASTINGPERFORMED BY: [employer] Rprrhl3768 [facility] [id number] ANTIGEN) (V76.44) Prostate Specific Ag, 0.9 ng/mL (Normal) Range: 0.0-4.0 Serum Comments: nPicker ECLIA methodology. .According to the [place] [employer] Association, Serum PSA shoulddecrease and remain at undetectable levels after radicalprostatectomy. The AUA defines biochemical recurrence as an initialPSA value 0.2 ng/mL or greater followed by a subsequent confirmatoryPSA value 0.2 ng/mL or greater.Values obtained with d ifferent assay methods or kits cannot be usedinterchangeably. Results cannot be interpreted as absolute evidenceof the presence or absence of malignant disease. :48 CALCIFIDIOL (81308) VIT D 25 Comments: PATIENT NOT FASTINGPERFORMED BY: [employer] Tdrwxg6304 [facility] [id number] Vitamin D, 25-Hydroxy 31.1 ng/mL (Normal) Range: 30.0-100.0 Comments: Vitamin D deficiency has been defined by the [facility] and an Endocrine Society practice guideline as alevel of serum 25-OH vitamin D less than 20 ng/mL (1,2).The Endocrine Society went on to further define vitamin Dinsufficiency as a level between 21 and 29 ng/mL (2).1. IOM ([place] of Medicine). 2010. Dietary reference intakes for calcium and D. [place]: The National Academies Press.2. Fernando MF, Cedric AGUIAR, Teresa ALBERTS, et al. Evaluation, treatment, and prevention of vitamin D deficiency: an Endocrine Society clinical practice guideline. JCEM. 2010; 96(7):1911-30. :48 URINALYSIS, W/ MICRO (86292) Comments: PATIENT NOT FASTINGPERFORMED BY: LabCoJFK Johnson Rehabilitation InstituteYhfnjp6355 [facility] [id number] Microscopic Examination See below: (Normal) Comments: Microscopic was indicated and was performed. Microscopic Examination MICRON (Normal) Comments: Microscopic follows if indicated. Nitrite, Urine Negative (Normal) Urobilinogen,Semi-Qn 0.2 mg/dL (Normal) Range: 0.2-1.0 Bilirubin Negative (Normal) Occult Blood Negative (Normal) Ketones Negative (Normal) Glucose Negative (Normal) Protein Trace (Normal) WBC Esterase Negative (Normal) Appearance Clear (Normal) Urine-Color Yellow (Normal) pH 7.0 (Normal) Range: 5.0-7.5 Specific Aubrey 1.025 (Normal) Range: 1.005-1.030 74-Hqf-69890:48 METABOLIC PANEL, COMPREHENSIVE Comments: PATIENT NOT FASTINGPERFORMED BY: LabCoJFK Johnson Rehabilitation InstituteKbuauw8686 [facility] [id number] (37994) ALT (SGPT) 18 [iU]/L (Normal) Range: 0-44 [...] mg/dL (Normal) Range: 65-99 :48 LIPID PANEL (69046) Comments: PATIENT NOT FASTINGPERFORMED BY: [employer] Aesluv0936 [facility] [id number] LDL/HDL Ratio 2.1 {ratio_units} (Normal) Range: 0.0-3.6 [...] Range: 100-199 :48 CBC with auto diff (85004) Comments: PATIENT NOT FASTINGPERFORMED BY: RivalSoftJFK Johnson Rehabilitation InstituteGqsvzv5123 [facility] [id number]; apt. 2-26-16 Immature Grans (Abs) 0.0 {x10E3/uL} [...] {x10E3/uL} (Normal) Range: 3.4-10.8 03-Jan-20158:20 LIPID PANEL (64177) Comments: PATIENT WAS FASTINGPERFORMED BY: [facility]6370 [facility] [id number] Information: [id number]; non-emergent till apt LDL/HDL Ratio 2.3 {ratio_units} [...] Cholesterol, Total 129 mg/dL (Normal) Range: 100-199 29-Ess-409264:02 CBC-Complete Blood Cnt No Diff Comments: Test performed at:[facility] [address] [place] [address] MPV 9.7 fL (Normal) Range: [...] 4.6-6.2 WBC 5.7 K/mm3 (Normal) Range: 4.4-11.0 68-Mdm-284177:02 Comprehensive Metabolic Profil Comments: Test performed at:[facility] [address]btiz[address], [place] [id number] GAP 4 (Abnormal) Range: 5-15 CO2 30.0 [...] Comments: Please note revised CREATININE reference range /22/2015. BUN 16 mg/dL (Normal) Range: 7-18 GLU 100 mg/dL (Normal) Range: 70-110 43-Ugm-239450:02 Erythrocyte Sed Rate Comments: Test performed at:[facility] F[address]corle[address] [place] [address] SED RATE 9 mm/h (Normal) Range: 0-20 92-Aca-69630:50 Urinalysis, Office (40220) UA - LEUKOCYTE ESTERASE Negative (Normal) UA - NITRITE Negative (Normal) URINE UROBILINGN RENÉE TIMED 2 mg/dL (Normal) UA - PROTEIN Negative mg/dL (Normal) UA - PH 5.0 (Normal) UA - BLOOD Negative (Normal) UA - SPECIFIC GRAVITY 1.015 (Normal) UA - KETONES Negative mg/dL (Normal) UA - BILIRUBIN Negative (Normal) UA - GLUCOSE Negative (Normal) 47-Die-317749:04 HgA1C , Office (28134) HgA1C , Office 5.6 % (Normal) Range: 4.6 - 7.1 82-Keo-253819:04 Blood Glucose , Office (01257) Blood Glucose , Office 124 (Normal) :35 Microscopic Examination Comments: PATIENT WAS FASTINGPERFORMED BY: [employer]6370 [employer] [facility] [id number] Bacteria None seen (Normal) Mucus Threads Present (Normal) Epithelial Cells (non renal) None seen {/hpf} (Normal) Range: 0 - 10 RBC 0-2 {/hpf} (Normal) Range: 0 - 2 WBC 0-5 {/hpf} (Normal) Range: 0 - 5 :35 CALCIFIDIOL (17957) VIT D 25 Comments: PATIENT WAS FASTINGPERFORMED BY: [employer]6370 [place] [employer]formerly [facility] [id number] Vitamin D, 25-Hydroxy 29.1 ng/mL (Abnormal) Range: 30.0-100.0 Comments: Vitamin D deficiency has been defined by the [place] of[place]icine and an Endocrine Society practice guideline as alevel of serum 25-OH vitamin D less than 20 ng/mL (1,2).The Endocrine Society went on to further define vitamin Dinsufficiency as a level between 21 and 29 ng/mL (2).1. IOM ([place] of Medicine). 2010. Dietary reference intakes for calcium and D. [place]: The National Academies Press.2. Fernando MF, Cedric AGUIAR, Teresa ALBERTS, et al. Evaluation, treatment, and prevention of vitamin D deficiency: an Endocrine Society clinical practice guideline. JCEM. 2010; 96(7):1911-30. :35 URINALYSIS, W/ MICRO (58828) Comments: PATIENT WAS FASTINGPERFORMED BY: LabEquidamJFK Johnson Rehabilitation InstituteCthcof5013 [facility] [id number] Microscopic Examination See below: (Normal) Comments: Microscopic was indicated and was performed. Microscopic Examination MICRON (Normal) Comments: Microscopic follows if indicated. Nitrite, Urine Negative (Normal) Urobilinogen,Semi-Qn 0.2 mg/dL (Normal) Range: 0.0-1.9 Bilirubin Negative (Normal) Occult Blood Negative (Normal) Ketones Negative (Normal) Glucose Negative (Normal) Protein Negative (Normal) WBC Esterase Negative (Normal) Appearance Clear (Normal) Urine-Color Yellow (Normal) pH 7.5 (Normal) Range: 5.0-7.5 Specific Aubrey 1.023 (Normal) Range: 1.005-1.030 :35 METABOLIC PANEL, COMPREHENSIVE Comments: PATIENT WAS FASTINGPERFORMED BY: [employer] LabEquidamJFK Johnson Rehabilitation InstituteCrunjq0686 [facility] [id number] (03950) ALT (SGPT) 22 [iU]/L (Normal) Range: 0-44 [...] Glucose, Serum 93 mg/dL (Normal) Range: 65-99 :35 LIPID PANEL (13020) Comments: PATIENT WAS FASTINGPERFORMED BY: [employer]70 [facility] CorporationNov[facility] [id number] LDL/HDL Ratio 2.5 {ratio_units} (Normal) Range: 0.0-3.6 [...] DIFF WBC Comments: PATIENT WAS FASTINGPERFORMED BY: [employer]70 [place] [facility] [id number] Information: [id number] (73607) Immature Grans (Abs) 0.0 {x10E3/uL} (Normal) Range: [...] (Normal) Range: 3.4-10.8 :58 HgA1C , Office (80728) HgA1C , Office 5.5 % (Normal) Range: 4.6 - 7.1 :58 Blood Glucose , Office (81000) Blood Glucose , Office 107 (Normal) :33 PSA (PROSTATE SPECIFIC Comments: PATIENT WAS FASTINGPERFORMED BY: [facility]6370 [facility] [id number] ANTIGEN) (V76.44) Prostate Specific Ag, 0.8 ng/mL (Normal) Range: 0.0-4.0 Serum Comments: Teresa ECLIA methodology. .According to the [place] [employer] Association, Serum PSA shoulddecrease and remain at undetectable levels after radicalprostatectomy. The AUA defines biochemical recurrence as an initialPSA value 0.2 ng/mL or greater followed by a subsequent confirmatoryPSA value 0.2 ng/mL or greater.Values obtained with d ifferent assay methods or kits cannot be usedinterchangeably. Results cannot be interpreted as absolute evidenceof the presence or absence of malignant disease. :33 CALCIFIDIOL (44155) VIT D 25 Comments: PATIENT WAS FASTINGPERFORMED BY: [employer] Wqgjxg4807 [facility] [id number] Vitamin D, 25-Hydroxy 33.6 ng/mL (Normal) Range: 30.0-100.0 Comments: Vitamin D deficiency has been defined by the [facility] [facility] and an Endocrine Society practice guideline as alevel of serum 25-OH vitamin D less than 20 ng/mL (1,2).The Endocrine Society went on to further define vitamin Dinsufficiency as a level between 21 and 29 ng/mL (2).1. IOM ([place] of Medicine). 2010. Dietary reference intakes for calcium and D. [place]: The National Academies Press.2. Fernando MF, Cedric AGUIAR, Teresa ALBERTS, et al. Evaluation, treatment, and prevention of vitamin D deficiency: an Endocrine Society clinical practice guideline. JCEM. 2010; 96(7):1911-30. :33 METABOLIC PANEL, COMPREHENSIVE Comments: PATIENT WAS FASTINGPERFORMED BY: [employer] Lymfye6179 [facility] [id number] (80434) ALT (SGPT) 32 [iU]/L (Normal) Range: 0-44 [...] mg/dL (Normal) Range: 65-99 :33 LIPID PANEL (16926) Comments: PATIENT WAS FASTINGPERFORMED BY: [employer]70 [place] [employer]formerly [facility] [id number] LDL/HDL Ratio 2.4 {ratio_units} (Normal) Range: 0.0-3.6 [...] MANUAL DIFF Comments: PATIENT WAS FASTINGPERFORMED BY: [employer]70 [place] [facility] [id number] Information: [id number] (68295) Immature Grans (Abs) 0.0 {x10E3/uL} (Normal) Range: [...] (Normal) Range: 3.4-10.8 :09 HgA1C , Office (47175) HgA1C , Office 5.6 % (Normal) Range: 4.6 - 7.1 4-Loh-275840:09 Blood Glucose , Office (87886) Blood Glucose , Office 122 (Normal) 20-Kyu-498412:41 Throat Culture (42406) Comments: PATIENT NOT FASTINGPERFORMED BY: LabMun[facility]6370 [facility] [id number] Information: SRC:ASHLY [id number] Result 1 RRF (Normal) Comments: Routine respiratory jose antonio Upper Respiratory Culture Final report (Normal) 62-Tlq-65867:38 Rapid Strep Test, Office (82079) Rapid Strep Test, Office Negative (Normal) 21-Xbw-427813:37 Blood Glucose , Office (53436) Blood Glucose , Office 123 (Normal) :37 HgA1C , Office (68862) HgA1C , Office 5.9 % (Normal) Range: 4.6 - 7.1 88-Caw-672458:11 METABOLIC PANEL, Comments: PATIENT NOT FASTINGPERFORMED BY: ADRIANA [employer]70 [facility]asChildren[facility] [id number] Information: [id number] COMPREHENSIVE (61176) ALT (SGPT) 27 [iU]/L (Normal) Range: 0-44 [...] Glucose, Serum 90 mg/dL (Normal) Range: 65-99 23-Dhz-507852:11 LIPID PANEL (03292) Comments: PATIENT NOT FASTINGPERFORMED BY: LabCoNuji70 [facility] [id number] LDL/HDL Ratio 2.0 {ratio_units} (Normal) Range: 0.0-3.6 LDL Cholesterol Calc 69 mg/dL (Normal) Range: 0-99 VLDL Cholesterol Kylie 21 mg/dL (Normal) Range: 5-40 HDL Cholesterol 35 mg/dL (Abnormal) Comments: According to ATP-III Guidelines, HDL-C >59 mg/dL is considered anegative risk factor for CHD. Triglycerides 103 mg/dL (Normal) Range: 0-149 Cholesterol, Total 125 mg/dL (Normal) Range: 100-199 4-Mpi-695349:19 Comp. Metabolic Panel (14) Comments: PERFORMED BY: [employer]6370 [facility] [id number] ALT (SGPT) 26 [iU]/L (Normal) Range: 0-44 [...] Lipid Panel With LDL/HDL Comments: PERFORMED BY: [employer] Seoqzy1853 [facility] [id number] Ratio LDL Cholesterol Calc 88 mg/dL (Normal) Range: 0-99 LDL/HDL Ratio 2.3 {ratio_units} (Normal) Range: 0.0-3.6 HDL Cholesterol 38 mg/dL (Abnormal) Comments: According to ATP-III Guidelines, HDL-C >59 mg/dL is considered anegative risk factor for CHD. VLDL Cholesterol Kylie 26 mg/dL (Normal) Range: 5-40 Cholesterol, Total 152 mg/dL (Normal) Range: 100-199 Triglycerides 128 mg/dL (Normal) Range: 0-149 4-Cgi-319571:19 Platelet Count on Citrated Comments: PERFORMED BY: [employer]6370 [facility] [id number] Bld Plt Count, Citrated PAC {X10E3/uL} Range: 155-379 Bld (Normal) Comments: Platelets appear clumped. Vitamin D, 29.0 ng/mL (Abnormal) Comments: PERFORMED BY: [employer] Muownw5854 [facility] [id number] :19 25-Hydroxy Range: 30.0-100.0 Comments: Vitamin D deficiency has been defined by the [facility] [facility] and an Endocrine Society practice guideline as alevel of serum 25-OH vitamin D less than 20 ng/mL (1,2).The Endocrine Society went on to further define vitamin Dinsufficiency as a level between 21 and 29 ng/mL (2).1. IOM ([place] of Medicine). 2010. Dietary reference intakes for calcium and D. [place]: The National Academies Press.2. Fernando MF, Cedric NC, Teresa ALBERTS, et al. Evaluation, treatment, and prevention of vitamin D deficiency: an Endocrine Society clinical practice guideline. JCEM. 2010; 96(7):1911-30. :18 Blood Glucose , Office (04371) Blood Glucose , Office 126 (Normal) :18 HgA1C , Office (90937) HgA1C , Office 5.3 % (Normal) Range: 4.6 - 7.1 :37 CBC (Auto) (39084) Comments: citrate tube; PATIENT NOT FASTINGPERFORMED BY: RivalSoftR[place] 5422370 [facility] [id number] Information: ADD [id number] AND DRAW FEE 99 6660 Platelets 154 [...] Range: 3.4-10.8 :24 Blood Glucose , Office (31965) Blood Glucose , Office 113 (Normal) :24 HgA1C , Office (93041) HgA1C , Office 5.2 % (Normal) Range: 4.6 - 7.1 :47 PSA (Prostate Specific Comments: PATIENT NOT FASTINGPERFORMED BY: LabChristopher [place] 6532270 [facility] [id number] Information: [id number] Antigen), Screening (27861) Prostate Specific Ag, 0.8 ng/mL (Normal) Range: 0.0-4.0 Serum Comments: Teresa ECLIA methodology. .According to the [place] U[employer] Association, Serum PSA shoulddecrease and remain at undetectable levels after radicalprostatectomy. The AUA defines biochemical recurrence as an initialPSA value 0.2 ng/mL or greater followed by a subsequent confirmatoryPSA value 0.2 ng/mL or greater.Values obtained with d ifferent assay methods or kits cannot be usedinterchangeably. Results cannot be interpreted as absolute evidenceof the presence or absence of malignant disease. :55 HgA1C , Office (84980) HgA1C , Office 5.6 % (Normal) Range: 4.6 - 7.1 :55 Blood Glucose , Office (84656) Blood Glucose , Office 111 (Normal) :08 CBC WITH MANUAL DIFF Comments: 4 months; PATIENT WAS FASTINGPERFORMED BY: [facility]6370 [facility] [id number] Information: [id number] (96062) Immature Grans (Abs) 0.0 {x10E3/uL} (Normal) Range: [...] 4.14-5.80 WBC 5.4 {x10E3/uL} (Normal) Range: 4.0-10.5 :08 METABOLIC PANEL, COMPREHENSIVE Comments: PATIENT WAS FASTINGPERFORMED BY: [employer]70 [facility] [id number] (91801) ALT (SGPT) 22 [iU]/L (Normal) Range: 0-44 [...] mg/dL (Normal) Range: 65-99 :08 LIPID PANEL (28289) Comments: PATIENT WAS FASTINGPERFORMED BY: [employer]6370 [facility] [id number] LDL/HDL Ratio 1.9 {ratio_units} (Normal) Range: 0.0-3.6 HDL Cholesterol 33 mg/dL (Abnormal) Comments: According to ATP-III Guidelines, HDL-C >59 mg/dL is considered anegative risk factor for CHD. LDL Cholesterol Calc 63 mg/dL (Normal) Range: 0-99 VLDL Cholesterol Kylie 24 mg/dL (Normal) Range: 5-40 Triglycerides 120 mg/dL (Normal) Range: 0-149 Cholesterol, Total 120 mg/dL (Normal) Range: 100-199 :08 TSH (24630) Comments: PATIENT WAS FASTINGPERFORMED BY: [employer] LabCompetitor Orrayh3608 Trumb[facility] CorporationNov[facility] [id number] TSH 4.380 {uIU/mL} (Normal) Range: 0.450-4.500 10-Ggi-012287:04 C-Reactive Protein (66833) Comments: PATIENT NOT FASTINGPERFORMED BY: [employer] [facility] Fwjhjw5964 VenegasCuikerNovant Health Brunswick Medical Center [id number] C-Reactive Protein, Quant 4.5 mg/L (Normal) Range: 0.0-4.9 :04 Sed Rate Erythrocyte Comments: PATIENT NOT FASTINGPERFORMED BY: [employer] LabEquidam Wbhtzt4327 [facility] [id number] Information: [id number] (52295) Sedimentation Rate-Westergren 5 mm/h (Normal) Range: 0-30 70-Awe-325992:22 HgA1C , Office (87273) HgA1C , Office 5.3 % (Normal) Range: 4.6 - 7.1 18-Tgt-880040:22 Blood Glucose , Office (49827) Blood Glucose , Office 111 (Normal) :17 Microscopic Examination Comments: PATIENT WAS FASTINGPERFORMED BY: [employer] LabCo Nczjbm3296 [facility] [id number] Bacteria None seen (Normal) Mucus Threads Present (Normal) Epithelial Cells (non renal) None seen {/hpf} (Normal) Range: 0 - 10 RBC 0-3 {/hpf} (Normal) Range: 0 - 3 WBC None seen {/hpf} (Normal) Range: 0 - 5 8-Ehp-526574:30 ABDOMEN/PELVIS WITHOUT CONT Radiology Report See Note [...] Leon M.D.December 31, 2011 at 5:51:04 PM [id number] Signed MJ/MJ If you are the ref erring physician and would like to consult with theradiologist who provided this interpretation, please contact Earnest Calix at [phone]. If this radiologist is unavailable, you will bedirected to another radiologist to assist. If you are a patient with a question regarding this report, pleasecontactyour referring physician directly. Professional Interpretation Provided By: [facility], Phone , These documents contain legally protected [...] on 01/01/12 1005 Sign by: LEESA LEON 0-Dhy-202292:59 CBC with manual diff Comments: PATIENT NOT FASTINGPERFORMED BY: [facility] Rgsiuj2358 [facility] [id number] Information: [id number] (09262) Immature Grans (Abs) 0.0 {x10E3/uL} (Normal) Range: [...] 4.14-5.80 WBC 5.8 {x10E3/uL} (Normal) Range: 4.0-10.5 :59 Renal function Panel (16682) Comments: PATIENT NOT FASTINGPERFORMED BY: [facility] Qfdeai8415 [facility] [id number] Albumin, Serum 4.5 g/dL (Normal) Range: 3.5-4.8 [...] Glucose, Serum 90 mg/dL (Normal) Range: 65-99 5-Fac-179929:20 Urinalysis, Office (90166) UA - BILIRUBIN Negative (Normal) UA - BLOOD Negative (Normal) UA - GLUCOSE Negative (Normal) UA - KETONES Negative mg/dL (Normal) UA - LEUKOCYTE ESTERASE Negative (Normal) UA - NITRITE Negative (Normal) UA - PH 6.0 (Normal) UA - PROTEIN Negative mg/dL (Normal) UA - SPECIFIC GRAVITY 1.015 (Normal) URINE UROBILINGN RENÉE TIMED 2 mg/dL (Normal) :17 LIPID PANEL (12742) Comments: copy to yuliet; PATIENT WAS FASTINGPERFORMED BY: [employer] [place] [id number] LDL/HDL Ratio 2.1 {ratio_units} (Normal) Range: 0.0-3.6 LDL Cholesterol Calc 75 mg/dL (Normal) Range: 0-99 VLDL Cholesterol Kylie 32 mg/dL (Normal) Range: 5-40 HDL Cholesterol 35 mg/dL (Abnormal) Comments: According to ATP-III Guidelines, HDL-C >59 mg/dL is considered anegative risk factor for CHD. Triglycerides 159 mg/dL (Abnormal) Range: 0-149 Cholesterol, Total 142 mg/dL (Normal) Range: 100-199 :17 URINALYSIS, W/ MICRO (81168) Comments: PATIENT WAS FASTINGPERFORMED BY: [facility] [id number] Microscopic Examination See below: (Normal) Microscopic Examination MICRON (Normal) Comments: Microscopic follows if indicated. Nitrite, Urine Negative (Normal) Urobilinogen,Semi-Qn 0.2 mg/dL (Normal) Range: 0.0-1.9 Bilirubin Negative (Normal) Occult Blood Negative (Normal) Ketones Negative (Normal) Glucose Negative (Normal) Protein Negative (Normal) WBC Esterase Negative (Normal) Appearance Clear (Normal) Urine-Color Yellow (Normal) pH 7.5 (Normal) Range: 5.0-7.5 Specific Aubrey 1.016 (Normal) Range: 1.005-1.030 :17 METABOLIC PANEL, COMPREHENSIVE Comments: PATIENT WAS FASTINGPERFORMED BY: ADRIANA RivalSoftJFK Johnson Rehabilitation InstituteCosaad5465 [facility] [id number] (81476) ALT (SGPT) 29 [iU]/L (Normal) Range: 0-44 [...] Glucose, Serum 93 mg/dL (Normal) Range: 65-99 :17 CBC WITH MANUAL DIFF Comments: PATIENT WAS FASTINGPERFORMED BY: LabCoJFK Johnson Rehabilitation InstituteBteych3271 [facility] [id number] Information: [id number] (94079) Immature Grans (Abs) 0.0 {x10E3/uL} (Normal) Range: [...] (Normal) Range: 4.0-10.5 :55 HgA1C , Office (60916) HgA1C , Office 5.3 % (Normal) Range: 4.6 - 7.1 :55 Blood Glucose , Office (14988) Blood Glucose , Office 120 (Normal) :00 MRA HEAD WITHOUT CONTRAST Radiology Report See Note (Normal) Comments: PROCEDURE: MRA OF THE HEAD WITHOUT CONTRAST REASON FOR EXAM: Male, 76 years old. Severe headache. TECHNIQUE: 3-D mzos-ej-yxcmzn (TOF) imaging was performed with MIPs.Thestudy was [...] There is no demonstrated aneurysm of the [place] of [place]. There is nomajor vessel occlusion or hemodynamically significant stenosis. There isno demonstrated abnormality of the visualized brain. IMPRESSION:There is no evidence of aneurysmal formation. 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 Signed:Abdoulaye Garcia M.D.December 24, 2011 at 8:25:06 AM [id number] Signed GP/GP If you are the referring physician and would like to consul t with theradiologist who provided this interpretation, please contact Earnest Underwood at [phone]. If this radiologist is unavailable, youwill be directed to another radiologist to assist. If you are a patient with a question regarding this report, pleasecontactyour referring physician directly. Professional Interpretation Provided By: [facility], Phone , th vitaliy documents contain legally [...] destructionofthese documents. Dictated on 12/24/11 0709 by Pankaj Garcia MDranscribed on 12/24/11 1031 by ITS IMPORTSign by Abdoulaye Garcia MD on 12/24/11 1032 Sign by: Abdoulaye Garcia MD 82-Zee-919882:46 BRAIN/HEAD W/WO CONTRAST Radiology Report See Note [...] of the right M1 segment series 1002/19, brnnff2290/18-19 which may represent tortuosity or ectasia, aneurysm [...] brain. Signed:Mohan Moseley M.D.Nov at 4:48:04 PM [phone] Signed PF/PF If you are the referring physician and would like to consult with theradiologist who provided this interpretation, please contact Escobar Gaston M.D. at [phone]. If this radiologist is unavailable, you will bedirected to another radiologist to assist. If you are a patient with a question regarding this report, pleasecontactyour r eferring physician directly. Professional Interpretation Provided By: [facility], Phone , These documents contain legally protected [...] on 12/20/111654 Sign by: Mohan Moseley MD 41-Zoi-787989:46 SPINE,CERVICAL WITHOUT CONTRAS Radiology Report See Note [...] Moseley M.D.December 20, 2011 at 7:16:11 PM [id number] Signed PF/PF If you are the referring physician and would like to consult with [employer] AGjordy who provided this interpretation, please contact Mohan Moseley M.D. at [phone]. If this radiologist is unavailable, you will bedirected to another radiologist to assist. If you are a patient with a question regarding this report, pleasecontactyour referring physician directly. Professional Interpretation Provided By: [facility], Phone , These documents contain legally protected [...] on 12/20/111922 Sign by: Mohan Moseley MD 75-Zat-615652:00 CREATININE BLOOD (03011) Comments: PATIENT NOT FASTINGPERFORMED BY: [facility] GroupM[facility]6370 [facility] [id number] Information: [id number] eGFR If Africn Am 83 mL/min/1.73 (Normal) eGFR If NonAfricn Am 72 mL/min/1.73 (Normal) Creatinine, Serum 1.01 mg/dL (Normal) Range: 0.76-1.27 5-Asi-162638:50 Aerobic Bacterial Culture Comments: PERFORMED BY: LabEquidam Lrvfxo4735 [facility] [id number] Information: SRC:FM Result 1 NG36 (Normal) Comments: No growth in 36 - 48 hours. Aerobic Bacterial Culture Final report (Normal) 14-Btb-863629:04 HgA1C , Office (28407) HgA1C , Office 5.4 % (Normal) Range: 4.6 - 7.1 59-Ond-64580:34 CBC WITH MANUAL DIFF Comments: PATIENT WAS FASTINGPERFORMED BY: [facility] Business GroupM[facility]6370 [facility] [id number] Information: [id number] (43568) Immature Grans (Abs) 0.0 {x10E3/uL} (Normal) Range: [...] {x10E3/uL} (Normal) Range: 4.0-10.5 :34 LIPID PANEL (39219) Comments: PATIENT WAS FASTINGPERFORMED BY: [facility]formerly [facility] [id number] LDL/HDL Ratio 1.7 {ratio_units} (Normal) Range: 0.0-3.6 [...] PANEL, COMPREHENSIVE Comments: PATIENT WAS FASTINGPERFORMED BY: [employer] [facility] [id number] (85930) ALT (SGPT) 28 [iU]/L (Normal) Range: 0-55 [...] Glucose, Serum 103 mg/dL (Abnormal) Range: 65-99 00-Cbe-47220:34 MICROALBUMIN: CREATININE RATIO Comments: PATIENT WAS FASTINGPERFORMED BY: ADRIANA [facility] Cludtd4955 [facility] [id number] (03002) AND (53702) Microalb/Creat Ratio 2.5 {mg/g_creat} (Normal) Range: 0.0-30.0 Microalbumin, Urine 4.4 ug/mL (Normal) Range: 0.0-17.0 Creatinine, Urine 174.4 mg/dL (Normal) Range: 22.0-328.0 59-Tpy-917926:55 AMADA CULTURE-OTHER (57335) Comments: PATIENT NOT FASTINGPERFORMED BY: [facility] Jvmhyv1835 [facility] [id number] Information: SRC:THRT [id number] Result 1 RRF (Normal) Comments: Routine respiratory jose antonio Upper Respiratory Culture Final report (Normal) 63-Sqi-122971:37 Rapid Strep Test, Office (54510) Rapid Strep Test, Office Negative (Normal) :36 MICROALBUMIN: CREATININE RATIO Comments: PATIENT WAS FASTINGPERFORMED BY: [employer] Qglina0708 [facility] [id number] (44807) AND (50869) Microalb/Creat Ratio 1.8 {mg/g_creat} (Normal) Range: 0.0-30.0 Microalbumin, Urine 2.7 ug/mL (Normal) Range: 0.0-17.0 Creatinine, Urine 147.3 mg/dL (Normal) Range: 22.0-328.0 :36 METABOLIC PANEL, COMPREHENSIVE Comments: PATIENT WAS FASTINGPERFORMED BY: [employer]6370 [facility] [id number] (78320) ALT (SGPT) 27 [iU]/L (Normal) Range: 0-55 [...] mg/dL (Normal) Range: 65-99 :36 LIPID PANEL (19790) Comments: PATIENT WAS FASTINGPERFORMED BY: [employer] [facility] [id number] LDL/HDL Ratio 2.2 {ratio_units} (Normal) Range: 0.0-3.6 [...] MANUAL DIFF Comments: PATIENT WAS FASTINGPERFORMED BY: [employer]70 [facility] [id number] Information: [id number]; f/u 06/17/11 (21957) Immature Grans (Abs) 0.0 {x10E3/uL} (Normal) Range: [...] 4.10-5.60 WBC 4.6 {x10E3/uL} (Normal) Range: 4.0-10.5 49-Bhx-278546:14 CBC WITH MANUAL DIFF Comments: PATIENT WAS FASTINGPERFORMED BY: LabCoJFK Johnson Rehabilitation InstituteVkuscv8322 [facility] [id number] Information: [id number] (37000) Immature Grans (Abs) 0.0 {x10E3/uL} (Normal) Range: [...] 4.10-5.60 WBC 5.2 {x10E3/uL} (Normal) Range: 4.0-10.5 :14 LIPID PANEL (89063) Comments: PATIENT WAS FASTINGPERFORMED BY: [employer] [facility] [id number] LDL/HDL Ratio 2.3 {ratio_units} (Normal) Range: 0.0-3.6 LDL Cholesterol Calc 90 mg/dL (Normal) Range: 0-99 VLDL Cholesterol Kylie 22 mg/dL (Normal) Range: 5-40 HDL Cholesterol 40 mg/dL (Normal) Comments: According to ATP-III Guidelines, HDL-C >59 mg/dL is considered anegative risk factor for CHD. Triglycerides 111 mg/dL (Normal) Range: 0-149 Cholesterol, Total 152 mg/dL (Normal) Range: 100-199 :14 METABOLIC PANEL, COMPREHENSIVE Comments: PATIENT WAS FASTINGPERFORMED BY: Advanced Accelerator ApplicationsJFK Johnson Rehabilitation InstituteJcbpdp1592 [facility] [id number] (08699) ALT (SGPT) 25 [iU]/L (Normal) Range: 0-55 [...] Glucose, Serum 97 mg/dL (Normal) Range: 65-99 89-Dji-566745:14 MICROALBUMIN: CREATININE RATIO Comments: PATIENT WAS FASTINGPERFORMED BY: LabM[facility]6370 [facility] [id number] (78496) AND (71237) Microalb/Creat Ratio 16.7 {mg/g_creat} (Normal) Range: 0.0-30.0 Microalbumin, Urine 17.9 ug/mL (Abnormal) Range: 0.0-17.0 Creatinine, Urine 107.4 mg/dL (Normal) Range: 22.0-328.0 93-Eab-621985:04 URINE AMADA CULTURE-IDENTIFICATN Comments: PATIENT NOT FASTINGPERFORMED BY: [facility] Zxzcfr4175 [address] [place] [id number] Information: [id number] (28903) Result 1 NG36 (Normal) Comments: No growth [...] 0.8-1.3 GLU 95 mg/dL (Normal) Range: 70-110 50-Tqv-951104:01 POST VOID RESIDUAL BLADDER Radiology Report See Note (Normal) Comments: Exam Number: [id number] LINICAL:The patient is a 75-year-old man with [...] IMPRESSION: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 Reported By: APM LAYTON M.D. 34-Xod-779868:41 Urinalysis, Office (61298) UA - BILIRUBIN Negative (Normal) UA - BLOOD Negative (Normal) UA - GLUCOSE Negative (Normal) UA - KETONES Negative mg/dL (Normal) UA - LEUKOCYTE ESTERASE Negative (Normal) UA - NITRITE Negative (Normal) UA - PH 6.5 (Normal) UA - PROTEIN Negative mg/dL (Normal) UA - SPECIFIC GRAVITY 1.015 (Normal) URINE UROBILINGN RENÉE TIMED 2 mg/dL (Normal) 30-Jan-20108:27 CBCD,SMEAR DIFF PLT EST SeeNote (Normal) Comments: [...] CHOL 112 mg/dL (Normal) Comments: <200 mg/dL Gpzvcwapi087-515 mg/dL Borderline>240 mg/dL High Risk :27 VIT D,25 62219 40.0 ng/mL (Normal) Range: 32.0-100.0 Comments: Recent studies consider the lower limit of 32.0 ng/mL to candace threshold for optimal health.Syed PETIT. J Nutr. 2004;135(2):317-22.Performed at: - [facility] [address]Lab Director: Shawanda Beatty MD, Phone: [phone] C-REACTIVE PROT 7.78 mg/L (Abnormal) Range: [...] SED RATE 27 mm/h (Abnormal) Range: 0-20 42-Asl-991818:45 ABDOMEN/PELVIS WITH CONTRAST Radiology Report See Note (Normal) Comments: Exam Number: [id number] CLINICAL:Left lower quadrant pain. CT ABDOMEN AND [...] Metabolic Panel, Comments: PATIENT WAS FASTINGPERFORMED BY: [facility]6370 [facility] [id number] Information: [id number] Comprehensive (64396) ALT (SGPT) 24 [iU]/L (Normal) Range: 0-55 [...] Glucose, Serum 98 mg/dL (Normal) Range: 65-99 01-Aug-20098:33 Lipid Panel (93442) Comments: PATIENT WAS FASTINGPERFORMED BY: LabCoJFK Johnson Rehabilitation InstituteXjqfhy9263 [facility] [id number] HDL Cholesterol 37 mg/dL (Abnormal) Comments: According [...] (PROSTATE SPECIFIC Comments: PATIENT WAS FASTINGPERFORMED BY: [employer]formerly [facility] [id number] ANTIGEN) (V76.44) Prostate Specific Ag, 2.5 ng/mL (Normal) Range: 0.0-4.0 Serum Comments: Vickers ElectronicsIA methodology..According to the [place] [employer] Association, Serum PSA shoulddecrease and remain [...] FUNCTION PANEL Comments: PATIENT WAS FASTINGPERFORMED BY: [employer]70 [employer] Developmentformerly [facility] [id number] Information: [id number] (50549) ALT (SGPT) 34 [iU]/L (Normal) Range: 0-55 Alkaline Phosphatase, S 74 [iU]/L (Normal) Range: 25-160 AST (SGOT) 28 [iU]/L (Normal) Range: 0-40 Bilirubin, Direct 0.16 mg/dL (Normal) Range: 0.00-0.40 Bilirubin, Total 0.7 mg/dL (Normal) Range: 0.1-1.2 Albumin, Serum 4.4 g/dL (Normal) Range: 3.5-4.8 Protein, Total, Serum 7.8 g/dL (Normal) Range: 6.0-8.5 :29 Lipid Panel (47209) Comments: PATIENT WAS FASTINGPERFORMED BY: [employer]70 [employer] Developmentformerly [facility] [id number] LDL Cholesterol Calc 110 mg/dL (Abnormal) Range: 0-99 LDL/HDL Ratio 3.1 {ratio_units} (Normal) Range: 0.0-3.6 HDL Cholesterol 36 mg/dL (Abnormal) Comments: According to ATP-III Guidelines, HDL-C >59 mg/dL is considered anegative risk factor for CHD. Triglycerides 169 mg/dL (Abnormal) Range: 0-149 VLDL Cholesterol Kylie 34 mg/dL (Normal) Range: 5-40 Cholesterol, Total 180 mg/dL (Normal) Range: 100-199 26-Jan-20099:28 CBC WITH MANUAL DIFF (33283) Comments: PATIENT WAS FASTINGClinical Information: ADD [id number] PERFORMED BY: [facility] Jkwzah9796 [facility] [id number] Baso (Absolute) 0.0 {x10E3/uL} (Normal) Range: 0.0-0.2 [...] CREATININE RATIO Comments: PATIENT WAS FASTINGPERFORMED BY: Advanced Accelerator ApplicationsJFK Johnson Rehabilitation InstituteRdukwk0498 [facility] [id number] (21727) AND (69848) Creatinine, Urine 200.6 mg/dL (Normal) Range: 22.0-328.0 Microalb/Creat Ratio 2.1 {mg/g_creat} (Normal) Range: 0.0-30.0 Microalbumin, Urine 4.2 ug/mL (Normal) Range: 0.0-17.0 :28 METABOLIC PANEL, COMPREHENSIVE Comments: PATIENT WAS FASTINGPERFORMED BY: [employer] Oqzlvz1372 [facility] [id number] (27191) A/G Ratio 1.3 (Normal) Range: 1.1-2.5 Albumin, [...] mmol/L (Normal) Range: 135-145 :28 LIPID PANEL (39212) Comments: 02-03; PATIENT WAS FASTINGPERFORMED BY: WineMeNowformerly [facility] [id number] Cholesterol, Total 149 mg/dL (Normal) Range: 100-199 [...] PATIENT WAS FASTINGClinical Information: ADD DRAW FEE 367894 ADD J 70154 PERFORMED BY: [facility]Nowformerly [facility] [id number] (20168) A/G Ratio 1.3 (Normal) Range: 1.1-2.5 Albumin, [...] Serum 98 mg/dL (Normal) Range: 65-99 If -Malagasy >59 mL/min/1.73 Comments: Note: Persistent reduction for [...] Sodium, Serum 141 mmol/L (Normal) Range: 135-145 :28 Lipid Panel (61160) Comments: in three months (approximately); PATIENT WAS FASTINGPERFORMED BY: [employer] [place] [id number] Cholesterol, Total 139 mg/dL (Normal) Range: 100-199 [...] (PROSTATE SPECIFIC Comments: PATIENT WAS FASTINGPERFORMED BY: [employer]NowACE[employer] [place] [id number] ANTIGEN) (V76.44) Prostate Specific Ag, Serum 1.0 ng/mL (Normal) Range: 0.0-4.0 Comments: Teresa ECLIA methodology. .According to the [place] U[employer] Association, PSA should beundetectable after radical prostatectomy. A PSA of less than0.5 ng/mL (or undetectable) is not likely to be associated withdisease recurrence within five years of treatment.Values obtained with different assay methods or kits cannot be usedinterchang eably. Results cannot be interpreted as absolute evidenceof the presence or absence of malignant disease. 98-Jwt-15586:19 CALCIFIDIOL (49346) VIT D 25 Comments: PATIENT WAS FASTINGPERFORMED BY: [employer] [facility] Mazxyz4087 [address]egas RoadDublin [place] [id number] Vitamin D, 25-Hydroxy 31.1 ng/mL (Abnormal) Range: 32.0-100.0 Comments: Recent studies consider the lower limit of 32.0 ng/mL to be athreshold for optimal health.Syed PETIT. J Nutr. 2004;135(2):317-22. 54-Ljm-84325:19 C-Reactive Protein (52172) Comments: PATIENT WAS FASTINGPERFORMED BY: [employer] [facility] Oboucn7250 [address]egas RoadDublin [place] [id number] C-Reactive Protein, Quant 8.2 mg/L (Abnormal) Range: 0.0-4.9 :19 TSH (71154) Comments: PATIENT WAS FASTINGPERFORMED BY: [facility] Ykydbg3740 [address] RoadDublin [place] [id number] TSH 2.354 {uIU/mL} (Normal) Range: 0.450-4.500 40-Gme-64379:19 MICROALBUMIN: CREATININE RATIO Comments: PATIENT WAS FASTINGPERFORMED BY: [employer] [facility] Znccmj8139 [address] RoadDublin [place] [id number] (63059) AND (47229) Microalbum.,U,Random 4.3 ug/mL (Normal) Range: 0.0-17.0 :19 METABOLIC PANEL, COMPREHENSIVE Comments: PATIENT WAS FASTINGPERFORMED BY: [employer] [facility] Aoyckt3137 [address] RoadDublin [place] [id number] (14462) A/G Ratio 1.2 (Normal) Range: 1.1-2.5 Albumin, [...] Serum 97 mg/dL (Normal) Range: 65-99 If -Malagasy >59 mL/min/1.73 Comments: Note: Persistent reduction for [...] Sodium, Serum 143 mmol/L (Normal) Range: 135-145 06-Rbf-44815:19 CBC WITH MANUAL DIFF (08577) Comments: PATIENT WAS FASTINGClinical Information: ADD DRAW FEE [id number] ADD J 44102 PERFORMED BY: LabChristopher [facility] 6532270 [facility] [id number] Baso (Absolute) 0.0 {x10E3/uL} (Normal) Range: 0.0-0.2 [...] 11.7-15.0 WBC 5.5 {x10E3/uL} (Normal) Range: 4.0-10.5 25-Gbe-96279:19 LIPID PANEL (79290) Comments: PATIENT WAS FASTINGPERFORMED BY: LabCoJFK Johnson Rehabilitation InstituteLcnhhi1773 [facility] [id number] Cholesterol, Total 161 mg/dL (Normal) Range: 100-199 HDL Cholesterol 36 mg/dL (Abnormal) Comments: According to ATP-III Guidelines, HDL-C >59 mg/dL is considered anegative risk factor for CHD. 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 07-13-2009 Indication: PROSTATITIS NOS PROSTATITIS [...] Injection Indication: Shoulder pain Planned Observations CALCIFIDIOL (26701) VIT D 25Indication: Vitamin D deficiency, unspecified On: 24-Apr-2018 Request URINALYSIS, W/ MICRO (98955)Indication: Hypertension, benign On: 24-Apr-2018 Request LIPOPROTEIN, BLD, BY NMR (51131)Indication: Mixed hyperlipidemia On: 28-Qvr-404713:08 Request METABOLIC PANEL, COMPREHENSIVE (84623)Indication: Hypertension, benign On: 67-Lzu-159626:08 Request CALCIFIDIOL (24307) VIT D 25Indication: Vitamin D deficiency, unspecified On: 67-Tam-804459:08 Request URINALYSIS, W/ MICRO (06354)Indication: Hypertension, benign On: 2-Lgx-426904:21 Request SED RATE ERYTHROCYTE (85940)Indication: Diverticulitis On: :31 Request Comments: stat METABOLIC PANEL, COMPREHENSIVE (02222)Indication: Diverticulitis On: :31 Request Comments: stat CBC W/AUTO DIFF WBC (52789)Indication: Diverticulitis On: :31 Request Comments: stat Metabolic Panel, Basic (77790)Indication: Hypertension, benign On: 91-Xnr-736204:24 Request Comments: recheck in 2 weeks Sed Rate Erythrocyte (02170)Indication: Elevated vitamin B12 level On: 86-Sva-935991:23 Request CBC, Platelets & Auto Diff (17693)Indication: Abdominal pain, acute, right upper quadrant (Renamed from Acute abdominal pain in right upper quadrant) On: 27-Agi-917339:54 Request Metabolic Panel, Comprehensive (03338)Indication: Abdominal pain, acute, right upper quadrant (Renamed from Acute abdominal pain in right upper quadrant) On: 34-Fct-495932:54 Request Lipase (91414)Indication: Abdominal pain, acute, right upper quadrant (Renamed from Acute abdominal pain in right upper quadrant) On: 61-Aca-091437:53 Request Amylase (87193)Indication: Abdominal pain, acute, right upper quadrant (Renamed from Acute abdominal pain in right upper quadrant) On: 82-Ecj-835921:53 Request Sed Rate Erythrocyte (96055)Indication: Abdominal pain, acute, right lower quadrant On: :12 Request CBC (Auto) (10591)Indication: Abdominal pain, acute, right lower quadrant On: :12 Request Metabolic Panel, Comprehensive (45320)Indication: Abdominal pain, acute, right lower quadrant On: :12 Request PSA (PROSTATE SPECIFIC ANTIGEN) (V76.44)Indication: Encounter for well adult exam with abnormal findings On: 00-Udj-847944:49 Request CALCIFIDIOL (98596) VIT D 25Indication: Vitamin D deficiency, unspecified On: 63-Nca-766061:46 Request URINALYSIS, W/ MICRO (42590)Indication: Coronary artery disease On: :45 Request METABOLIC PANEL, COMPREHENSIVE (32397)Indication: Coronary artery disease On: : Request LIPID PANEL (28223)Indication: Coronary artery disease On: : Request CBC with auto diff (69597)Indication: Coronary artery disease On: : Request CBC (Auto) (41654)Indication: Hypertension, benign On: : Request Comments: citrate tube Lipid Panel (10546)Indication: Mixed hyperlipidemia On: : Request Metabolic Panel, Comprehensive (40959)Indication: Hypertension, benign On: : Request CALCIFEDIOL (53634)Indication: Vitamin D deficiency, unspecified On: : Request TSH (58626)Indication: Other anxiety states On: : Request MICROALBUMIN: CREATININE RATIO (45277) AND (96043)Indication: Hypertension On: : Request METABOLIC PANEL, COMPREHENSIVE (24587)Indication: Hypertension On: : Request LIPID PANEL (34766)Indication: Hypertension On: : Request CBC WITH MANUAL DIFF (08419)Indication: Hypertension On: 92-Gag-289575: Request AMADA CULTURE-OTHER (45984)Indication: Forearm On: 02-Oct-20118:59 Request OVA & PARASITE DIR SMEAR (37068)Indication: Diarrhea On: : Request C.Difficile, Stool (29463)Indication: Diarrhea On: : Request LEUKOCYTE COUNT, FECAL (37728)Indication: Diarrhea On: : Request AMADA CULTURE-STOOL (18413)Indication: Diarrhea On: : Request METABOLIC PANEL, BASIC (24183)Indication: Hypertension, benign On: 31-Olh-99393:05 Request Urinalysis, Office (00582)Indication: Urinary frequency On: 41-Tob-223636:24 Request C-REACTIVE PROTEIN (64273)Indication: Abdominal pain, acute, left lower quadrant On: 54-Nla-827019:10 Request SED RATE ERYTHROCYTE (30786)Indication: Abdominal pain, acute, left lower quadrant On: 23-Kle-912179:10 Request CBC WITH MANUAL DIFF (01228)Indication: Abdominal pain, acute, left lower quadrant On: 09-Buu-596900:09 Request CALCIFIDIOL (52875) VIT D 25Indication: Vitamin D deficiency, unspecified On: :48 Request METABOLIC PANEL, COMPREHENSIVE ([id number])Indication: Hypertension, benign On: :48 Request LIPID PANEL ([id number])Indication: Hypertension, benign On: :48 Request CBC WITH MANUAL DIFF ([id number])Indication: Hypertension, benign On: :48 Request Rapid Flu ([id number] x 2)Indication: Fever On: 14-Iin-331351:31 Request Planned Encounters Medical; [facility] 3 Month FU - On: 25-May-2018 10:45 [facility] Samia Dominguez MD, MD, Dana M Planned Procedures US DOPPLER CAROTID BILATERAL On: 17-Mar-2018 Intent ([id number])By: Samia Dominguez MD, MD, Dana M Flu Vaccine (Quadrivalent) On: 09-Feb-2018 Intent [id number]: Samia Dominguez MD Comments: Lot #:[id number] date: 2-04-33Bzgsfg given:0.5mlRoute: IMSite given:L DltdGiven by: ElaineVIS and ABN signed Fluarix Samia Dominguez MD ELECTROCARDIOGRAM, COMPLETE (ECG) On: 05-Sep-2017 Intent ([id number])By: Samia Dominguez MD Comments: see scanned document of test done to see results reviewed today with patient Samia Dominguez MD Nuclear Stress Test/Stress On: 05-Sep-2017 Intent SPECT/TreadmillBy: Samia Dominguez MD, MD, Dana M Echo CompleteBy: Samia Dominguez MD On: 05-Sep-2017 Samia Flynn MD Radiology - KUBBy: Alberto HARRY, On: 29-Jul-2017 Intent Samia Sanchez MD Comments: call wet read US DOPPLER CAROTID BILATERAL On: 22-Oct-2016 Intent ([id number])By: Samia Dominguez MD, MD, Dana M Radiology - Lumbar SpineBy: On: 24-Jun-2016 Intent Samia Dominguez MD, MD, Dana M CT - Abdomen & Pelvis (IV On: 24-Jun-2016 Intent Contrast Needed)By: Alberto HARRY, Comments: kidney stone protocol. hx of heptomegaly. Samia Sanchez MD Flu Vaccine (Quadrivalent) On: 22-Jan-2016 Intent [id number]: Samia Dominguez MD Comments: Lot #:[id number] date:3-57-40Mtyojh given:0.5mlRoute: IMSite given:L DltdGiven by: ElaineVIS and ABN signed Fluarix Samia Dominguez MD CT - Abdomen (IV Contrast On: 06-Oct-2015 Intent Needed)By: Samia Dominguez MD Comments: attentiom pancrease Samia Dominguez MD ANGIOGRAM, CAROTID AND CEREBRAL On: 28-Jun-2015 Intent VESSELS, BILATERAL ([id number])By: Comments: attention basilar artery and vertebrals Samia Dominguez MD, MD, Dana M Carotid DopplerBy: Alberto HARRY, On: 10-Jan-2015 Intent Samia Sanchez MD Flu Vaccine (Quadrivalent) On: 10-Jan-2015 Intent [id number]: Samia Dominguez MD Comments: lot: [id number]: 09/25/15ite/route: L del/IMamt: 0.5mLVIS signed when applicableChelsea, [facility] Samia Doming[facility] MD ADMINISTRATION OF INFLUENZA VIRUS On: 10-Jan-2015 Intent VACCINE ([id number])By: Samia Dominguez MD, MD, Dana M CT - Abdomen & Pelvis (IV On: 08-Dec-2014 Intent Contrast Needed)By: Alberto HARRY, Comments: rule out hernia rule out ileocecal colitis Samia Sanchez MD Wax CurettesBy: Samia Dominguez MD On: 05-Jul-2014 Intent Samia Bond MD Ear Irrigation ([id number])By: On: 05-Jul-2014 Intent Samia Dominguez MD, MD, Comments: Bilateral irrigationmoderate amount of light yellow wax removedtolerated well with no complaint of painwax curette GALINA oliva TDAP VACCINE >7 IM ([id number])By: On: 02-Nov-2013 Intent Samia Dominguez MD, MD, Comments: Lot #:[id number] date:1-21-8016Vpcawl given:1/2 cc Route:IM Site given:left deltoid Given by: mabel Villalba Eprescribed prescriptions On: 26-Jul-2013 Intent (G8553)By: Aparna Stinson CNP DXA, BONE DENSITY, AXIAL SKELETON On: 06-Jul-2013 Intent ([id number])By: Samia Dominguez MD Comments: heel screen low Samia Dominguez MD Eprescribed prescriptions On: 06-Jul-2013 Intent ([id number])By: Samia Dominguez MD, MD, Dana M Eprescribed prescriptions On: 11-Mar-2013 Intent (G8553)By: Samia Dominguez MD, MD, Dana M [id number] On: 11-Mar-2013 Intent COUNSELING FOR OBESITY, 15 MINUTES ([id number])By: Samia Dominguez MD, MD, Dana M ADMINISTRATION OF INFLUENZA VIRUS On: 21-Jan-2012 Intent VACCINE (G0008)By: Olvin MOJICA, Comments: Lot #[id number]-L dltd, IMDose prefilled syringegiven by Rohan Hastings FLU VAC, SPLIT, >3 YEARS, On: 21-Jan-2012 Intent INTRAMUSC ([id number])By: Nguyen Bah LPN CT - Abdomen & Pelvis Stone On: 31-Dec-2011 Intent ProtocolBy: Aparna Stinson CNP Comments: stat call wet read Dr. Dominguez Eprescribed prescriptions On: 24-Dec-2011 Intent (G8553)By: Samia Dominguez MD, MD, Dana M MRA - BrainBy: ABDIEL Dutta On: 23-Dec-[address] - Spine/CervicalBy: Alberto On: 19-Dec-2011 Intent Samia HARRY MD, Dana M Comments: with or without contrast CT - Brain/Head (IV Contrast On: 16-Dec-2011 Intent Needed)By: Samia Dominguze MD, MD, Dana M FLU VAC, SPLIT, >3 YEARS, On: 18-Feb-2011 Intent INTRAMUSC ([id number])By: Luzmaria, Comments: Lot #:[id number] Expiration date: given:0.5mlRoute: IMSite given:left deltoid Given by: Senthil MEADOWS ADMINISTRATION OF INFLUENZA VIRUS On: 18-Feb-2011 Intent VACCINE (G0008)By: ABDIEL Dutta Ultrasound - post void bladder On: 06-Feb-2010 Intent residualBy: Samia Dominguez MD, MD, Dana M ADMINISTRATION OF INFLUENZA VIRUS On: 06-Feb-2010 Intent VACCINE (G0008)By: ABDIEL Dutta FLU VAC, SPLIT, >3 YEARS, On: 06-Feb-2010 Intent INTRAMUSC ([id number])By: ABDIEL Dutta CT - Abdomen & Pelvis (IV On: 21-Nov-2009 Intent Contrast Needed)By: Milvia Lundberg DO DXA, BONE DENSITY, AXIAL SKELETON On: 07-Aug-2009 Intent ([id number])By: Samia Dominguez MD, MD, Dana M ADMINISTRATION OF INFLUENZA VIRUS On: 31-Jan-2009 Intent VACCINE (G0008)By: Luzmaria, Comments: Lot #:[id number] date: given:0.5mlRoute: IMSite given:left deltoid Given by: Rabia MEADOWS FLU VAC, SPLIT, >3 YEARS, On: 31-Jan-2009 Intent INTRAMUSC (15615)By: ABDIEL Dutta Instructions Name Dates Details Vertigo [...] Advance Directives Name Dates Details Immunization Registry [place] - Effective on Effective: 06-Dec-201612/06/2016. Expiration date [...] The patient does have durable power of erisa attorney and living will. The patient has noticed getting bored, staying at home rather t morgan doing something new or going out and lack of energy. Other providers contributing to the patient's care are sugar plantation manager (Dr. Horvath) and other: ([facility]Encounter Diagnosis: BMI 32.0-32.9,adult, Current nonsmoker (Renamed from [...] The patient does have durable power of erisa attorney and living will. The patient has noticed staying at home rather than doi ng something new or going out and lack of energy. Other providers contributing to the patient's care are sugar plantation manager (Yuliet ), gastrologist (Lexi ) and other: (Opthalm [...] Office Visit On: 27-May-2016 15:25 Encounter Diagnosis: Perleche End: 27-May-2016 15:38 [facility] Office [...] Encounter Reason: Follow up tests - Date: (06.27.14)., [ADDITIONAL REASON] Follow up for chronic medical [...] well. Patient has been compliant with instructions. Shani End: 02-Nov-2013 10:52 t medication use: no [...] history. Yes the patient did have (wisper / mms ) a mini mental statu End: 08-Jul-2013 [...] The patient does have durable power of erisa attorney and living will. The patien t has noticed dropping activities and interests, getting bored, feeling sad most of time, staying at home rather than doing something new or going out, having problems with memory than others and lack o f energy. Other providers contributing to the patient's care are sugar plantation manager (Dr Horvath) and route sales delivery driver (Dr Macdonald). Note for Annual Medicare Exam: [...] ). Patient has been compliant with instructions. Shanien End: 16-Jul-2012 11:50 t medication use: no [...] (746.9), GERD (530.81), [facility] V790.00 (Renamed from [facility]) [facility] Office Visit On: 30-Apr-2011 [...] GERD (530.81) , Urinary Urge Incontinence (788.31), V V790.00 (Renamed from [facility]) [facility] Office Visit On: 19-Nov-2010 [...] Nutrition: balanced diet and supplemental vitamins. The sc dical issues the patient is following up for include cardiac issues, depression (anxiety ), high blood pressure, high cholesterol and other (urinary frequency ).Encounter Diagnosis: Hypertension,benign(401.1), Diarrhea (787.91), Coronary Artery Disease (414.00), Hyperlipidemia, Mixed (272.2), GERD (530.81), Mitral Valve Prolapse (746.9), arthritis,unspecified (716.90), Anxiety state, unspecified (300.00), [facility] Office Visit On: 09-Aug-2010 [...] (414.00), Lesion-Unknown behavior (238.2), Shoulder pain (719.41), V [facility] Office Visit On: 14-Apr-2008 [...] Medicine End: 13-Apr-2008 8:[address]TRICIA AHUJA; nichole guarantor
--- OUTSIDE RECORDS SUMMARY | 2018-05-06 00:02 | XMS RPT_ITS | Continuity of Care Document ---
:1935 Author Organization [facility] Address [address] [facility] [facility] [address] [place] [address] Phone Care Team Providers Name Role Phone Alberto HARRY, Samia Villalba Unavailable Claudia Dutton Unavailable Unavailable Julito HARRY, Dr. Jennings Unavailable [facility], Gustavo Mayo Unavailable Mehdi Foote Unavailable Dr. [...] Dana M Start : 09-Feb-2018 Active Comments:ID# [id number] Meclizine HCl 12.5 MG Oral Tablet 1 [...] : 01-May-2012 End : 08-Feb-2013 Inactive Comments:ID# [id number] HYDROCODONE-ACETAMINOPHEN, 5-325MG (Oral Tablet) 1 (one) Tablet [...] : 17-Jun-2011 Discontinued Comments:This order discontinued per [facility]. LIPITOR, 10MG (Oral Tablet) 1 Tablet [...] Comments: had xray, pt, Dr. kaiser at [facility], injection good for 6 weeks--now back talk [...] as of 16-Jul-2012 WM V790.00 (Renamed from [facility]) Comments: family of colon ca--gets scope [...] Duplex Ultrasound Result: Comments: See Note; NOTES: [facility] Cardiovascular Services [address] [place] [address] Carotid Duplex Ultrasound 03/24/18 1002 MR#: [id number] Acct: [id number] Name: MOISES HOWARD Rep #: [id number] : 1935 83 From: John Owens MD [...] Date Dictated: 03/24/18 1002 Date Transcribed: 03/25/181135 Electrical Superintendent: Signed 11-Mar-2018 Inj/Asp Reza Jt Should/Hip/Knee Result: Comments: See Note; NOTES: [facility] Imaging Services [address] [place] [address] Inj/Asp Reza Jt Should/Hip/Knee MR#: [id number] Acct: [id number] Name: MOISES AHUJA Rep # : [id number] : 1935 83 From: Abdoulaye Garcia MD PCP: Samia Dominguez MD Status: REG CLI Study: Inj/Asp Reza Jt Should/Hip/Knee Date of Exam: 03/11/18 Exam# [id number] Ordering Dr: Anmol Fisher MD PROCEDURE: Fluoroscopic [...] Abdoulaye Garcia MD at 9:42 EST Tel [phone], Service support , CC: Samia Dominguez MD; Anmol Fisher MD Electrical Superintendent: Signed 05-Mar-2018 PT D/C Summary (1) Result: Comments: See Note; NOTES: [facility] Therapy [facility] [address] [place] [address]. [address] [place] [address] Fax REHABILITATION SERVICES [facility] SUMMARY MR#: [id number] Acct: [id number] Name: MOISES AHUJA Rep #: [id number] [...] please feel free to call me at [phone]. Thank you for the referral of this patient. Sincerely, Ashok Nolasco DPT, OC <Electronically signed by Ashok Nolasco DPT, KEIRY, CSCS> 03/05/18 0911 CC: Samia Dominguez MD; OUT OF TOWN DOCTOR EBG Signed 18-Feb-2018 Inital Evaluation (1) - PT Result: Comments: See Note; NOTES: [facility] Therapy [facility] [address] [place], [place] [address] Fax REHABILITATION SERVICES INITIAL EVALUATION MR#: [id number] Acct: [id number] Name: MOISES AHUJA Rep #: [id number] : 1935 82 From: Ashok Nolasco DPT, KEIRY, CSCS Referring Dr.: OUT OF TOWN DOCTOR Status: REG RCR Insurance: [place] PART [place] B ANTHEM Patient's Visit [...] to be FAXED BACK to us at [phone] for Medicare purposes. Please let me know [...] - Endoscopy Result: Comments: See Note; NOTES: [facility] Medical Records Department [address] [place] [address] Operative Report - Endoscopy MR#: [id number] Acct: [id number] Name: MOISES AHUJA Rep #: [id number] : 1935 82 From: Mehdi Foote MD PCP: Samia Dominguez MD [place] [facility] Patient Name: Moises Ahuja Procedure Date: 01/16/2018 [...] to age. Procedure Code(s): --- Professional --- 84270, PT, Colonoscopy, flexible; diagnostic, including collection of specimen(s) by brushing or washing, when performed (separate procedure) Diagnosis Code(s): --- Professional --- Z86.010, Personal history o f colonic polyps K57.30, Diverticulosis of large intestine without perforation or abscess without bleeding CPT copyright 2017 [employer]. All rights reserved. The codes documented in t his report are preliminary and upon cigar wrapper review may be revised to meet current compliance requirements. Mehdi Foote MD 01/16/2018 10:49:47 AM This report has been signed electronically. Number o f Addenda: 0 Note Initiated On: 01/16/2018 10:15 AM 01/16/18 1049 Date Mehdi Foote MD Cosigner Signature: Date (if indicated) CC: Mehdi Foote MD; Samia Dominguez MD Date Dictated: 01/16/18 1015 Date Transcribed: Electrical Superintendent: SCOT Signed 30-Dec-2017 Surgery Visit Report Result: Comments: See Note; NOTES: [facility] [address] [place] [address] 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 His application integration engineer is Dr. Horvath. Patient's previous history per [...] Visit Report Result: Comments: See Note; NOTES: [facility] [address] [place] [address] 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 Mehdi Foote MD Pager: [facility] [address] [place] [address], [address] [place] [address] Office: Orders Orders: Coding Level of Care Code Off vis,new,level 3 Diagnoses History of adenomatous polyp of colon Z86.010 Colitis K52.9 03/15 1050 <Electronically signed by Mehdi Foote MD> Date Mehdi Foote MD Cosigner Signature: Date (if applicable) CC: Samia Dominguez MD 24-Oct-2017 Cardiology Visit Report Result: Comments: See Note; NOTES: [facility] 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 Pure hypercholesterolemia E78.00; E78.0 Plan - UHANG Abdullahi Managed by primary care doctor. Have [...] prior to saving. 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 Cardiovascular Services [address] [place] [address] MR#: [id number] Acct: [id number] Name: MOISES AHUJA Rep #: [id number] : [birth year] 82 From: Tacho Rolle MD [...] 70 %. This note was generated with Sitedeskation software. It may contain incorrect words, spelling, and punctuation that were not noted in checking the note before signing. 10/07/17 17 02 <Electronically signed by Tacho Rolle MD> Date Tacho Rolle MD CC: Samia Dominguez MD Date Dictated: 10/07/171655 Date Transcribed: 10/07/171655 Electrical Superintendent: PM Signed 07-Oct-2017 Echocardiogram Complete Result: Comments: See Note; NOTES: [facility] Cardiovascular Services [address] [place] [address] Echo Complete 10/07/17 0858 MR#: [id number] Acct: [id number] Name: MOISES AHUJA #: [id number] : 1935 82 From: Tacho Rolle MD [...] 10/07/17 0858 Date Trans cribed: 10/07/17 1505 Electrical Superintendent: Signed 29-Jul-2017 Abdomen Single View Result: Comments: See Note; NOTES: [facility] Imaging Services [address] [place] [address] Abdomen Single View MR#: [id number] Acct: [id number] Name: MOISES AHUJA Rep #: [id number] : 1935 M 82 From: Abdoulaye Garcia MD PCP: Samia Dominguez MD Status: REG CLI Study: Abdomen Single View Date of Exam: 07/29/17 Exam# [id number] Ordering Dr: Samia Dominguez MD STUDY: X-RAY [...] Abdoulaye Garcia MD at 13:01 EDT Tel [phone], Service support , CC: Samia Dominguez MD Electrical Superintendent: Signed 12-May-2017 PT D/C Summary (1) Result: Comments: See Note; NOTES: [facility] [address] [facility] [facility] [address] [place] [address] Fax REHABILITATION SERVICES DISCHAR GE SUMMARY MR#: [id number] Acct: [id number] Name: MOISES AHUJA Rep #: [id number] [...] please feel free to call me at [phone]. Thank you for the referral of this patient. Sincerely, Hang Waller, PT, <Electronically signed by Hang Waller PT, ATC&#62 ; 05/12/17 1002 CC: Samia Dominguez MD; Pavel Madsen MD [facility] Signed 09-Apr-2017 Inital Evaluation (1) - PT Result: Comments: See Note; NOTES: [facility] [facility] [facility]. [address] [place] [address] Fax REHABILITATION SERVICES INITIAL EVALUATION MR#: [id number] Acct: [id number] Name: MOISES AHUJA Rep #: [id number] [...] to be FAXED BACK to us at [phone] for Medicare purposes. Please let me know if there are questions or concerns regarding this plan of care. Physician Signature: ____Date: <Electronically signed by Hang Waller PT, ATC> 04/09/17 0758 CC: Samia Dominguez MD; Pavel Madsen MD [facility] Signed For Medicare only , by signing this I certify the plan of care. Physicians Signature Date 05-Nov-2016 Carotid Duplex Ultrasound Result: Comments: See Note; NOTES: [facility] Cardiovascular Services [address] [place] [address] Carotid Duplex Ultrasound 11/01/16 0857 MR#: [id number] Acct: [id number] Name: MOISES HOWARD Rep #: [id number] : 1935 81 From: John Owens MD [...] the left vertebral artery. Procedure Carotid Duplex 99777. Exam performed in department. 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 Mild (<50%) stenosis left extracranial internal carotid. Flow within the vertebral arteries is antegrade bilaterally. Ordering Physician: Samia Dominguez Referring Physician: Samia Dominguez Performed By: Edyta Aden, RALPH, RVT 11/05/162013 Date John Owens MD CC: Samia Dominguez MD Date Dictated: 11/01/16856 Date Transcribed: 11/05/162013 Electrical Superintendent: Signed 24-Jun-2016 Abdomen/Pelvis WITH Contrast Result: Comments: See Note; NOTES: [facility] Imaging Services [address] [place] [address] [place] 4d Abdomen/Pelvis WITH Contrast MR#: [id number] Acct: [id number] Name: JOSEPHINE AHUJA Rep #: [id number] : 1935 M 81 From: Rubi Burkett MD PCP: Samia Dominguez MD Status: REG CLI Study: Abdomen/Pelvis WITH Contrast Date of Exam: 06/24/16 Exam# [id number] Ordering Dr: Samia Dominguez MD STUDY: CT [...] at 14:51 EST Tel , Service support [phone], CC: Samia Dominguez MD Electrical Superintendent: Signed 24-Jun-2016 L/S Spine Min 4 Views Result: Comments: See Note; NOTES: [facility] Imaging Services [address] [place] [address] [place] 4d L/S Spine Min 4 Views MR#: [id number] Acct: [id number] Name: MOISES AHUJA Rep #: [id number] : 1935 M 81 From: Dionisio Brown MD PCP: Samia Domniguez MD Status: REG CLI Study: L/S Spine Min 4 Views Date of Exam: 06/24/16 Exam# [id number] Ordering Dr: Samia Dominguez MD [facility] DY: X-RAY - LUMBAR SPINE REASON [...] [place] at 16:43 EST , Service support [phone], CC: Samia Dominguez MD Electrical Superintendent: Signed 11-Oct-2015 Abdomen WITH IV Contrast Result: Comments: See Note; NOTES: [facility] Imaging Services [address] [place] [address] Ver[place] 4d Abdomen WITH IV Contrast MR#: [id number] Acct: [id number] Name: MOISES ANDERSON Rep #: [id number] : 1935 80 From: Abdoulaye Garcia MD PCP: Samia Dominguez MD Status: REG CLI Study: Abdomen WITH IV Contrast Date of Exam: 10/11/15 Exam# [id number] Ordering D r: Samia Dominguez MD STUDY: [...] Abdoulaye Garcia MD at 9:34 EDT Tel [phone], Service support [phone], CC: Samia Dominguez MD Electrical Superintendent: Signed 05-Jul-2015 CTA Head W/WO Contrast Result: Comments: See Note; NOTES: [facility] Imaging Services [address] [place] [address] Verdana 4d CTA Head W/WO Contrast MR#: [id number] Acct: [id number] Name: MOISES HOWARD Rep #: [id number] : 1935 80 From: Abdoulaye Garcia MD PCP: Samia Dominguez MD Status: REG CLI Study: CTA Head W/WO Contrast Date of Exam: 07/05/15 Exam# [id number] Ordering Dr: Samia Carreon MD STUDY: CTA [...] There is no demonstrated aneurysm of the [place] of [place]. There is no demonstrate d abnormality of the visualized brain. IMPRESSION: Normal [place] of [place] without a demonstrated aneurysm or hemodynamically significant stenosis. Electronica lly Signed: Abdoulaye Garcia MD at 8:07 EST Tel [phone], Service support [phone], CC: Samia Dominguez MD Electrical Superintendent: Signed 05-Jul-2015 CTA Neck W/WO Contrast Result: Comments: See Note; NOTES: [facility] Imaging Services [address] [place] [address] Ver[place] 4d CTA Neck W/WO Contrast MR#: [id number] Acct: [id number] Name: MIKE CICI LiebermanMOISES C Rep #: [id number] : 1935 M 80 From: Abdoulaye Garcia MD PCP: Samia Dominguez MD Status: REG CLI Study: CTA Neck W/WO Contrast Date of Exam: 07/05/15 Exam# [id number] Ordering Dr: Samia Carreon MD STUDY: CTA [...] Abdoulaye Garcia MD at 8:06 EST Tel [phone], Service support [phone], CC: Samia Dominguez MD Electrical Superintendent: Signed 09-Jun-2015 Carotid Duplex Ultrasound Result: Comments: See Note; NOTES: [facility] Cardiovascular Services [address] [place] [address] Carotid Duplex Ultrasound 06/09/15 1012 MR#: [id number] Acct: [id number] Name: MOISES AHUJA Rep #: [id number] : 1935 80 From: Low Hernandez MD [...] Lt Vert A. Procedure Caroti d Duplex 37776. Exam performed in department. Interpretation Summary The [...] Date Dictated: 06/09/15 1012 Date Transcribed: 06/09/152201 Electrical Superintendent: Signed 21-Apr-2015 Emergency Department Summary Result: Comments: See Note; NOTES: [facility] Medical Records Department [address] [place] [address] Emergency Department Summary 04/20/15 2316 MR#: [id number] Acct: [id number] Name: MOISES AHUJA Rep #: [id number] : 1935 80 From: Leo Gunn MD [...] History (1) Benign positional vertigo Status: Resolved [facility] Medical History - Allergies and Home Meds [...] Sensation, Normal DTR, Normal Gait, - - Chattahoochee-Hallpike maneuver was positive. Symptoms worse with turning head to th e left. Fast component noted to the right. Did not appreciate an initial upward deflection. Psychological: Normal affect Diagnostic/Tx/Re-eval - Medical Decision Making Stroke Team Activated: No IV TPA Administered: No Intraarterial Therapy: No Patient's symptoms were suggestive of paroxysmal benign positional vertigo. Patient did have a positive Chattahoochee Hallpike maneuver. An Jimmy maneuver was performed. [...] any unexpected problems, contact your doctor. Call [facility] ([phone] ) or report to the closest Emergency Room. Call 911 if necessary. 04/21/15 0010 <Electronically signed by Leo Gunn MD> Date Leo Gunn MD Cosigner Signature (If Indicated): Date CC: Gallo Fraser MD; Samia Dominguez MD 14-Apr-2015 PT D/C Summary Result: Comments: See Note; NOTES: [facility] Physical Therapy [address] [place], [place] [address] [facility] MR#: [id number] Acct: [id number] Name: MOISES AHUJA Rep #: [id number] : 1935 80 From: Ashok Nolasco Referring [...] please feel free to call me at [phone]. Thank you for the referral of this patient. Sincerely, Ashok Nolasco <Electronically jose d by Ashok Nolasco > 04/14/15 0641 CC: Samia Dominguez MD EBG Signed 03-Apr-2015 Inital Evaluation - PT Result: Comments: See Note; NOTES: [facility] [address] [place] [address]. [address] [place] [address] [facility] MR#: [id number] Acct: [id number] Name: MOISES AHUJA Rep #: [id number] : 1935 80 From: Ashok Nolasco Referring [...] to be FAXED BACK to us at [phone] for Medicare purposes. Please let me know [...] Cont ONLY Result: Comments: See Note; NOTES: [facility] Imaging Services [address] [place] [address] CAT Scan Report MR#: [id number] Acct: [id number] Name: MOISES AHUJA Rep #: [id number] : 1935 M 79 From: Abdoulaye Garcia MD PCP: Samia Dominguez MD Status: REG CLI Study: Abdomen/Pelvis W IV Cont ONLY Date of Exam: 12/08/14 Exam# [id number] Ordering Dr: Samia Dominguez MD STUDY: CT [...] Manish Garcia MD at 13:51 EDT Tel [phone], Service support [phone], CC: Samia Dominguez MD Electrical Superintendent: Signed 21-Jan-2014 PT Discharge Summary Result: Comments: See Note; NOTES: [facility] [address] [place] [address]. [address] [place] [address] Fax REHABILITATION SERVICES DISCHARGE SUMMARY MR#: [id number] Acct: [id number] Name: MIKELuisanaMOISES Rep #: [id number] : 1935 78 From: Ashok Nolasco Referring [...] care. Ashok Nolasco, PT T: NTS JOB: [id number] <Electronically signed by Ashok Nolasco > 01/21/14 0646 CC: Signed 11-Nov-2013 Inital Evaluation - PT Result: Comments: See Note; NOTES: [facility] [address] [facility] [facility] [place] [address] Fax REHABILITATION SERVICES INITIAL EVALUATION MR#: [id number] Acct: [id number] Name: MOISES AHUJA Rep #: [id number] : 1935 78 From: Ashok Nolasco Referring DrKarl: OUT OF TOWN DOCTOR Status: REG RCR Insurance: MEDIC ARE PART A B Eval Date: ANTHEM DATE OF SERVICE: 11/10/2013 DIAGNOSIS: Neck strain. REFERRED BY: Jace Jones, physician's residential real estate assistant. SUBJECTIVE: Moises Ahuja is a 78-year-old male, [...] therapy. Ashok Nolasco, PT T: MARCEL JOB: [id number] <Electronically signed by Ashok Nolasco > 11/11/13 0651 CC: Signed For Medicare only, by signing this I certify the plan of care. Physicians Signature Date 25-Oct-2013 Abdomen/Pelvis WITH Contrast Result: Comments: See Note; NOTES: [facility] Imaging Services [address] [place] [address] CAT Scan Report MR#: [id number] Acct: [id number] Name: MOISES AHUJA Rep #: [id number] : 1935 M 78 From: Harsha Pabon MD PCP: Samia Dominguez MD Status: REG CLI Study: Abdomen/Pelvis WITH Contrast Date of Exam: 10/25/13 Exam# [id number] Ordering Dr: Tacho De Luna MD STUDY: [...] at 19:52 EDT , Service s upport [phone], CC: Samia Dominguez MD; Tacho De Luna MD Electrical Superintendent: Signed 05-Aug-2013 PT Discharge Summary Result: Comments: See Note; NOTES: [facility] [place] [address] Fax REHABILITATION SERVICES DISCHARGE SUMMARY MR#: [id number] Acct: [id number] Name: MOISES AHUJA Rep #: [id number] : 1935 78 From: Ashok Nolasco Referring [...] doing well and ready to be done [facility] physical therapy. Objectively, he has 50 degrees [...] program. Ashok Nolasco, PT T: MARCEL JOB: [id number] <Electronically s igned by Ashok Nolasco > 08/05/13 0934 CC: Signed 21-Jul-2013 Inital Evaluation - PT Result: Comments: See Note; NOTES: [facility] [address] [place] [address]. [address] [place] [address] Fax REHABILITATION SERVICES INITIAL EVALUATION MR#: [id number] Acct: [id number] Name: MOISES AHUJA Rep #: [id number] : 1935 78 From: Ashok Nolasco Referring [...] appropriate home cervical range-of-m otion exercises, scapular zgdpc-nw-ywhryl exercises and management of his condition. I [...] . Ashok Nolasco, PT T: NTS JOB: [id number] <Electronically signed by Ashok Nolasco > 07/21/13 0740 CC: Signed For Medicare only, by signing this I certify the plan of care. Physicians Signature Date 14-Jul-2013 Dexa Bone Density Study (HP) Result: Comments: See Note; NOTES: [facility] Imaging Services [address] [place] [address] Bone Density Report MR#: [id number] Acct: [id number] Name: MOISES AHUJA Rep #: [id number] : 1935 M 78 From: Abdoulaye Garcia MD PCP: Samia Dominguez MD Status: REG CLI Study: Dexa Bone Density Study (HP) Date of Exam: 07/14/13 Exam# [id number] Ordering Dr: Samia Dominguez MD STUDY: DUAL [...] normal as outlined below according to World [employer] Organization (WHO) criteria with a low fracture [...] M.D. at 15:48 EDT , Service support [phone], CC: Samia Dominguez MD Electrical Superintendent: Signed Immunization Name Dates Details Influenza (3 [...] Inactive Vital Signs Date Test Result Details 59-Zzz-153018:00 Pulse 70 /min Comments: Pattern: Regular BP Systolic 150 mm[Hg] Comments: Patient Position: Standing; Cuff Location: Left Arm; Cuff Size: Standard BP Diastolic 80 mm[Hg] Comments: Patient Position: Standing; Cuff Location: Left Arm; Cuff Size: Standard 40-Egt-418259:00 Pulse 68 /min Comments: Pattern: Regular BP Systolic 140 mm[Hg] Comments: Patient Position: Sitting; Cuff Location: Left Arm; Cuff Size: Standard BP Diastolic 80 mm[Hg] Comments: Patient Position: Sitting; Cuff Location: Left Arm; Cuff Size: Standard 82-Nvs-253032:59 Temperature 97.6 f Comments: Method: Temporal Pulse [...] kg/m2 Body Surface Area Calculated 2.06 m2 36-Mzy-378477:20 Temperature 96.8 f Comments: Method: Temporal Pulse [...] Description Value Details :30 HgA1C , Office (86157) HgA1C , Office 5.2 % (Normal) Range: 4.6 - 7.1 :47 LIPOPROTEIN, BLD, BY NMR Comments: PATIENT WAS FASTINGPERFORMED BY: BN [facility] [address] [id number] BY: CB [facility] Tzruyp1866 [facility] [id number] (59388) LP-IR Score 52 (Abnormal) Comments: INSULIN RESISTANCE MARKER <--Insulin Sensitive Insulin Resistant--> Percentile in Reference PopulationInsulin Resistance ScoreLP-IR Score Low 25th 50th 75th High <27 27 45 63 >63LP-IR Score is inaccurate if patient is non-fasting. .The LP-IR score is a laboratory developed i [facility] that has beenassociated with insulin [...] were developed and their performance characteristicsdetermined by [employer]urai. These assays have not been cleared by [...] Comments: PATIENT WAS FASTINGPERFORMED BY: BN [facility] Magvlnlvoz9522 [facility] [id number] BY: CB [facility] Guvtem6230 [facility] [id number] (51056) Immature Grans (Abs) 0.0 {x10E3/uL} (Normal) Range: [...] PANEL, Comments: PATIENT WAS FASTINGPERFORMED BY: [facility] [address] [id number] BY: [facility] [address] [id number] [facility] ([address]) ALT (SGPT) 18 [iU]/L (Normal) Range: 0-44 [...] Specific Comments: PATIENT NOT FASTINGPERFORMED BY: [facility]6370 [facility] [id number] Antigen), Screening (98093) Prostate Specific Ag, 1.4 ng/mL (Normal) Range: 0.0-4.0 Serum Comments: Tangler ECLIA methodology. .According to the [employer], Serum PSA shoulddecrease and remain at undetectable levels after radicalprostatectomy. The AUA defines biochemical recurrence as an initialPSA value 0.2 ng/mL or greater followed by a subsequent confirmatoryPSA value 0.2 ng/mL or greater.Values obtained with d ifferent assay methods or kits cannot be usedinterchangeably. Results cannot be interpreted as absolute evidenceof the presence or absence of malignant disease. 13-Zqf-984983:03 CBC W/Diff, Automated Comments: Order Date: 10/21/17Order Info: [id number] - CBCDComments: statOrder Info: [id number] - [facility] [address] [place], [address] Absolute Lymph 1.20 {X10_3/ul} (Normal) Range: 0.83-4.51 [...] 4.6-6.2 WBC 5.0 K/mm3 (Normal) Range: 4.4-11.0 15-Ttw-337096:03 Comprehensive Metabolic Profil Comments: Order Date: 10/21/17Order Info: [id number] - CMPOrder Info: [id number] - CRPComments: statComments: [facility] [address]hw[address] [place], [address] GAP 9 (Normal) Range: 5-15 CO2 30.0 [...] Comments: Please note revised GLUCOSE reference range seowewere55/02/2018. 53-Gfy-671281:03 Erythrocyte Sed Rate Comments: Order Date: 10/21/17Order Info: [id number] - CBCDComments: statOrder Info: 46370-0 - [facility] [address]vthiselh[address] [place], [place], [address](290) SED RATE 8 mm/h (Normal) Range: 0-20 42-Nkk-476448:03 C-REACTIVE PROTEIN (03647) Comments: stat; Order Date: 10/21/17Order Info: [id number] - CMPOrder Info: [id number] - CRPComments: statComments: [facility] [address] [place], [address] C-REACTIVE PROT 30.20 mg/L (Abnormal) Range: 0.0-3.0 Comments: C-Reactive Protein (CRP) provides useful information for thediagnosis, therapy and monitoring of inflammatory processesand associated diseases. For the evaluation of Relative Riskfor Cardiovascular Dise ase, a High Sensitivity CRP (HSCRP)should be ordered. 16-Mds-766729:25 Clostridium difficile Toxin Comments: PATIENT NOT FASTINGPERFORMED BY: [facility] Gqdjgq7303 [facility] [id number] A+B, EIA (05974) C difficile Toxins A+B, EIA Positive (Abnormal) 64-Weg-730665:25 AMADA CULTURE-STOOL (87106) Comments: PATIENT NOT FASTINGPERFORMED BY: [facility] Lbcdar6580 [facility] [id number] Information: SRC:ST SRC:ST E coli Shiga Toxin EIA Negative (Normal) Result 1 NCI (Normal) Comments: No Campylobacter species isolated. Campylobacter Culture Final report (Normal) Result 1 NSS (Normal) Comments: No Salmonella or Shigella recovered. Salmonella/Shigella Screen Final report (Normal) 95-Lpg-329451:03 TSH (71009) Comments: PATIENT NOT FASTINGPERFORMED BY: [facility] Jracnb7960 [facility] [id number] TSH 2.980 {uIU/mL} (Normal) Range: 0.450-4.500 09-Jjj-441823:03 Metabolic Panel, Basic Comments: PATIENT NOT FASTINGPERFORMED BY: Ilesfay Technology GroupCenterpoint Medical Center Ndnlox2357 [facility] [id number] (73009) Calcium 9.5 mg/dL (Normal) Range: 8.6-10.2 Carbon [...] 8-27 Glucose 91 mg/dL (Normal) Range: 65-99 89-Mwj-316244:03 CBC with auto diff (49628) Comments: PATIENT NOT FASTINGPERFORMED BY: [facility] Folmms4876 [facility] [id number] Immature Grans (Abs) 0.0 {x10E3/uL} (Normal) Range: [...] 4.14-5.80 WBC 5.4 {x10E3/uL} (Normal) Range: 3.4-10.8 6-Nqk-479479:34 HgA1C , Office (90939) HgA1C , Office 5.4 % (Normal) Range: 4.6 - 7.1 99-Biu-322014:56 Rapid Flu (92907 x 2) Influenza A Ag Negative (Normal) 98-Bjb-039815:21 FERRITIN (43096) Comments: PATIENT NOT FASTINGPERFORMED BY: [facility]CoRobert [facility] SomersetTojrlh7410 [facility] [id number] Ferritin, Serum 139 ng/mL (Normal) Range: 30-400 56-Rma-742135:21 HEPATITIS PANEL (19814) Comments: PATIENT NOT FASTINGPERFORMED BY: Mobile Service ProsRobert Wood Johnson University Hospital SomersetSjinzv3565 [facility] [id number] Hep C Virus Ab <0.1 {s/co_ratio} (Normal) Range: 0.0-0.9 Comments: Negative: < 0.8 Indeterminate: 0.8 - 0.9 Positive: > 0.9 . The CDC recommends that a positive HCV antibody result be followed up with a HCV Nucleic Acid Amplification test (404152). Hep B Core Ab, IgM Negative (Normal) HBsAg Screen Negative (Normal) Hep A Ab, IgM Negative (Normal) 72-Vwm-116570:21 HEPATIC FUNCTION PANEL Comments: PATIENT NOT FASTINGPERFORMED BY: [employer] Qwzers6166 [facility] [id number] (51404) ALT (SGPT) 33 [iU]/L (Normal) Range: 0-44 AST (SGOT) 23 [iU]/L (Normal) Range: 0-40 Alkaline Phosphatase, S 68 [iU]/L (Normal) Range: 39-117 Bilirubin, Direct 0.11 mg/dL (Normal) Range: 0.00-0.40 Bilirubin, Total 0.4 mg/dL (Normal) Range: 0.0-1.2 Albumin, Serum 4.2 g/dL (Normal) Range: 3.5-4.7 Protein, Total, Serum 7.4 g/dL (Normal) Range: 6.0-8.5 :22 HgA1C , Office (92698) HgA1C , Office 5.2 % (Normal) Range: 4.6 - 7.1 :18 AMADA CULTURE-OTHER (60856) Comments: PATIENT NOT FASTINGPERFORMED BY: Ilesfay Technology GroupAscension Providence Hospital6370 [facility] [id number] Information: SRC:TH Result 1 RRF (Normal) Comments: Routine respiratory jose antonio Upper Respiratory Culture Final report (Normal) :21 Rapid Strep Test, Office (65422) Rapid Strep Test, Office Negative (Normal) :40 Microscopic Examination Comments: PATIENT WAS FASTINGPERFORMED BY: LabCo[address] [id number] BY: Mobile Service ProsRobert Wood Johnson University Hospital SomersetEozwrv0011 [facility] [id number] Bacteria None seen (Normal) Mucus Threads Present (Normal) Epithelial Cells (non renal) None seen {/hpf} (Normal) Range: 0 - 10 RBC 0-2 {/hpf} (Normal) Range: 0 - 2 WBC 0-5 {/hpf} (Normal) Range: 0 - 5 02-Mrs-96193:19 AMADA CULTURE-OTHER (19080) Comments: PATIENT NOT FASTINGPERFORMED BY: Mobile Service ProsRobert Wood Johnson University Hospital SomersetKsqggp1430 [facility] [id number] Information: SRC:TH Result 1 RRF (Normal) Comments: Routine respiratory jose antonio Upper Respiratory Culture Final report (Normal) 48-Olt-551576:27 Rapid Strep Test, Office (49960) Rapid Strep Test, Office Negative (Normal) 45-Lku-71415:40 URINALYSIS, W/ MICRO Comments: PATIENT WAS FASTINGPERFORMED BY: [employer] [id number] BY: Mobile Service ProsRobert Wood Johnson University Hospital SomersetIbnnon0742 [facility] [id number] (32772) Microscopic Examination See below: (Normal) Comments: Microscopic was indicated and was performed. Nitrite, Urine Negative (Normal) Urobilinogen,Semi-Qn 0.2 mg/dL (Normal) Range: 0.2-1.0 Bilirubin Negative (Normal) Occult Blood Negative (Normal) Ketones Negative (Normal) Glucose Negative (Normal) Protein Negative (Normal) WBC Esterase Trace (Abnormal) Appearance Clear (Normal) Urine-Color Yellow (Normal) pH 6.0 (Normal) Range: 5.0-7.5 Specific [place] 1.023 (Normal) Range: 1.005-1.030 :40 METABOLIC PANEL, Comments: PATIENT WAS FASTINGPERFORMED BY: [employer] [id number] BY: Mobile Service ProsRobert Wood Johnson University Hospital SomersetLiisrc4578 [facility] [id number] COMPREHENSIVE (51136) ALT (SGPT) 50 [iU]/L (Abnormal) Range: 0-44 [...] Glucose, Serum 94 mg/dL (Normal) Range: 65-99 09-Kea-65195:40 LIPOPROTEIN, BLD, BY NMR Comments: PATIENT WAS FASTINGPERFORMED BY: BN [facility] [address] [id number] BY: CB [facility] Muqoie9119 [facility] [id number] (67033) LP-IR Score 64 (Abnormal) Comments: INSULIN RESISTANCE [...] 1600 - 2000 Very High > 2000 36-Zfe-52151:40 CBC with auto diff Comments: PATIENT WAS FASTINGPERFORMED BY: Mobile Service ProsMark [place] 005877 [facility] [id number] BY: ADRIANA [facility] Emtryp0123 [facility] [id number] (39752) Immature Grans (Abs) 0.0 {x10E3/uL} (Normal) Range: [...] 4.14-5.80 WBC 4.9 {x10E3/uL} (Normal) Range: 3.4-10.8 98-Pyk-78228:40 CALCIFIDIOL (55450) VIT D Comments: PATIENT WAS FASTINGPERFORMED BY: Mobile Service ProsTrenton Psychiatric HospitalEcluefdrtx4667 [facility] [id number] BY: LabAscension Providence Hospital6370 [facility] [id number] 25 Vitamin D, 25-Hydroxy 34.5 ng/mL (Normal) Range: 30.0-100.0 Comments: Vitamin D deficiency has been defined by the [place] ofMedicine and an Endocrine Society practice guideline as alevel of serum 25-OH vitamin D less than 20 ng/mL (1,2).The Endocrine Society went on to further define vitamin Dinsufficiency as a level between 21 and 29 ng/mL (2).1. IOM ([place] of Medicine). 2010. Dietary reference intakes for calcium and D. [place]: The National Academies Press.2. Fernando MF, Cedric NC, Teresa ALBERTS, et al. Evaluation, treatment, and prevention of vitamin D deficiency: an Endocrine Society clinical practice guideline. JCEM. 2010; 96(7):1911-30. :40 serum immunofixation (19222) Comments: PATIENT WAS FASTINGPERFORMED BY: [address] [id number] BY: [facility]6370 [facility] [id number] Immunoglobulin M, Qn, Serum 107 mg/dL (Normal) Range: 15-143 Immunoglobulin A, Qn, Serum 503 mg/dL (Abnormal) Range: 61-437 Immunoglobulin G, Qn, Serum 1199 mg/dL (Normal) Range: 700-1600 Immunofixation Result, Serum UPEIP (Normal) Comments: No monoclonality detected. :18 Metabolic Panel, Comprehensive Comments: PATIENT WAS FASTINGPERFORMED BY: Mobile Service ProsRobert Wood Johnson University Hospital SomersetSfovno3565 [facility] [id number] (43235) ALT (SGPT) 25 [iU]/L (Normal) Range: 0-44 [...] CREATININE RATIO Comments: PATIENT WAS FASTINGPERFORMED BY: [employer]6370 [facility] [id number] (98921) AND (87615) Microalb/Creat Ratio 5.6 {mg/g_creat} (Normal) Range: 0.0-30.0 Microalbumin, Urine 9.6 ug/mL (Normal) Creatinine, Urine 172.5 mg/dL (Normal) :18 URINALYSIS (18011) Comments: PATIENT WAS FASTINGPERFORMED BY: [employer]70 [facility] [id number] Microscopic Examination MICNIP (Normal) Comments: Microscopic not indicated and not performed. Nitrite, Urine Negative (Normal) Urobilinogen,Semi-Qn 0.2 mg/dL (Normal) Range: 0.2-1.0 Bilirubin Negative (Normal) Occult Blood Negative (Normal) Ketones Negative (Normal) Glucose Negative (Normal) Protein Negative (Normal) WBC Esterase Negative (Normal) Appearance Clear (Normal) Urine-Color Yellow (Normal) pH 7.0 (Normal) Range: 5.0-7.5 Specific [place] 1.020 (Normal) Range: 1.005-1.030 :18 CBC WITH MANUAL DIFF Comments: PATIENT WAS FASTINGPERFORMED BY: ADRIANA Mobile Service ProsRobert Wood Johnson University Hospital SomersetXaulkf0315 [facility] [id number] Information: NURSE DRAW; fu 6-26 db (84869) Immature Grans (Abs) 0.0 {x10E3/uL} (Normal) Range: [...] {x10E3/uL} (Normal) Range: 3.4-10.8 :57 C-REACTIVE PROTEIN (93402) Comments: PATIENT NOT FASTINGPERFORMED BY: Ilesfay Technology GroupAscension Providence Hospital6370 [facility] [id number] C-Reactive Protein, Quant 0.7 mg/L (Normal) Range: 0.0-4.9 :57 ESR-F (SED RATE ERYTHROCYTE - Comments: PATIENT NOT FASTINGPERFORMED BY: [employer] Idzlaa3924 [facility] [id number] MALE) (32653) Sedimentation Rate-Westergren 5 mm/h (Normal) Range: 0-30 :01 PSA,Total- Diagnostic Comments: [facility] [address] [place], [address] PSA, DIAGNOSTIC 1.09 ng/mL (Normal) Range: 0.0-4.0 Comments: This test was performed using the TPSA assay method for theBiophytis chemistry system. Values obtained with differentassay methods cannot be used interchangably.When changing PSA assays in the course of monitoring apatient, additional sequential testing should be carriedout to confirm baseline values. 88-Bfm-089773:29 HgA1C , Office (16050) HgA1C , Office 5.2 % (Normal) Range: 4.6 - 7.1 :03 serum immunofixation (09371) Comments: PATIENT NOT FASTINGPERFORMED BY: [employer] Yjtmtp3621 [facility] [id number] Information: NURSE DRAW Immunoglobulin M, Qn, Serum 115 mg/dL (Normal) Range: 15-143 Immunoglobulin A, Qn, Serum 504 mg/dL (Abnormal) Range: 61-437 Immunoglobulin G, Qn, Serum 1218 mg/dL (Normal) Range: 700-1600 Immunofixation Result, Serum UPEIP (Normal) Comments: No monoclonality detected. :03 Vitamin B-12 (cyanocobalamin) Comments: PATIENT NOT FASTINGPERFORMED BY: Mobile Service ProsRobert Wood Johnson University Hospital SomersetKcvbhl7844 [facility] [id number] (10025) Vitamin B12 1249 pg/mL (Abnormal) Range: 211-946 :42 Microscopic Examination Comments: PATIENT WAS FASTINGPERFORMED BY: [employer] [id number] BY: [employer] [address] Hg[address]ul[address] [place] [id number] Bacteria None seen (Normal) Mucus Threads Present (Normal) Epithelial Cells (non renal) None seen {/hpf} (Normal) Range: 0 - 10 RBC 0-2 {/hpf} (Normal) Range: 0 - 2 WBC 0-5 {/hpf} (Normal) Range: 0 - 5 :24 PSA (PROSTATE SPECIFIC Comments: copy to Dr. de luna; PATIENT WAS FASTINGPERFORMED BY: [employer] [place] [id number] ANTIGEN) (V76.44) Prostate Specific Ag, 1.1 ng/mL (Normal) Range: 0.0-4.0 Serum Comments: BIOCUREXIA methodology. .According to the [place] [employer], Serum PSA shoulddecrease and remain at undetectable levels after radicalprostatectomy. The AUA defines biochemical recurrence as an initialPSA value 0.2 ng/mL or greater followed by a subsequent confirmatoryPSA value 0.2 ng/mL or greater.Values obtained with d ifferent assay methods or kits cannot be usedinterchangeably. Results cannot be interpreted as absolute evidenceof the presence or absence of malignant disease. :25 MAGNESIUM (33544) Comments: PATIENT WAS FASTINGPERFORMED BY: [employer] [address] [place] [id number] Magnesium, Serum 2.3 mg/dL (Normal) Range: 1.6-2.3 :25 Vitamin B-12 (cyanocobalamin) Comments: PATIENT WAS FASTINGPERFORMED BY: [employer] [address] [place] [id number]; fu 3-24 db (68988) Vitamin B12 1271 pg/mL (Abnormal) Range: 211-946 2-Zoz-336550:06 Prostate-Specific Ag, Serum Comments: PATIENT NOT FASTINGPERFORMED BY: [employer] Idnelk[address] [facility] MichiganOrganics Rxblin [place] [id number] Information: V97112, 094147 Prostate Specific Ag, 0.9 ng/mL (Normal) Range: 0.0-4.0 Serum Comments: Teresa ECLIA methodology. .According to the [place] [employer] Association, Serum PSA shoulddecrease and remain [...] WAR (Normal) Comments: PATIENT NOT FASTINGPERFORMED BY: [employer] Pros Datzvq[address] [facility]Nov[facility], [facility] [id number] 2:06 Comments: Written Authorization Received.Authorization received from ABDIEL DUTTA LPN [id number] by Megan Oneill 2-Fkf-621555:06 SPE (99440) Comments: PATIENT NOT FASTINGPERFORMED BY: [facility] Rmztju2065 [facility] [id number] Information: [id number], 512023; fu 3-24 Please note: SPRCS (Normal) Comments: Protein electrophoresis scan will follow via computer, mail, orcourier delivery. A/G Ratio 0.9 (Normal) Range: 0.7-1.7 Globulin, Total 3.8 g/dL (Normal) Range: 2.2-3.9 M-Gagandeep Not Observed g/dL (Normal) Gamma Globulin 1.5 g/dL (Normal) Range: 0.4-1.8 Beta Globulin 1.4 g/dL (Abnormal) Range: 0.7-1.3 Fkbdj-4-Bejhjcoz 0.8 g/dL (Normal) Range: 0.4-1.0 Dvovi-8-Mfgppsaf 0.2 g/dL (Normal) Range: 0.0-0.4 Albumin 3.6 g/dL (Normal) Range: 2.9-4.4 Protein, Total, Serum 7.4 g/dL (Normal) Range: 6.0-8.5 65-Ijl-288256:26 Amylase Comments: [facility] [address]czrp[address] [place], [address] RONY 52 U/L (Normal) Range: 25-115 71-Zns-554032:26 CBC W/Diff, Automated Comments: [facility] Bbgexsbftc[address] [place], [place], [address] Absolute Lymph 1.93 {X10_3/ul} (Normal) Range: 0.83-4.51 [...] 4.6-6.2 WBC 7.0 K/mm3 (Normal) Range: 4.4-11.0 66-Qju-646867:26 Comprehensive Metabolic Profil Comments: [facility] [address]dqsdgbipv[address] [place], [place], [address] GAP 7 (Normal) Range: 5-15 CO2 30.0 [...] 7-18 GLU 89 mg/dL (Normal) Range: 70-110 13-Xmv-094862:26 Culture, Urine Comments: [facility] [address] [place], [address] CUUR See Note (Normal) Comments: Urine CultureCulture exhibits no growth. 16-Zkb-622924:26 Lipase Comments: [facility] [address] [place], [address] LIPASE 205 U/L (Normal) Range: 73-393 21-Yao-143538:56 URINE AMADA CULTURE-IDENTIFICATN Comments: PATIENT NOT FASTINGPERFORMED BY: [facility] Cvnkfe3847 [facility] [id number] Information: SRC:MALLORY (96446) Result 1 NG36 (Normal) Comments: No growth in 36 - 48 hours. Urine Culture,Comprehensive Final report (Normal) 47-Prq-236331:22 Urinalysis, Office (59393) UA - LEUKOCYTE ESTERASE Negative (Normal) UA - NITRITE Negative (Normal) URINE UROBILINGN RENÉE TIMED Normal mg/dL (Normal) UA - PROTEIN Negative mg/dL (Normal) UA - PH 6 (Abnormal) UA - BLOOD Negative (Normal) UA - SPECIFIC GRAVITY 1.005 (Normal) UA - KETONES Negative mg/dL (Normal) UA - BILIRUBIN Negative (Normal) UA - GLUCOSE Negative (Normal) :42 CALCIFIDIOL (46744) VIT D Comments: PATIENT WAS FASTINGPERFORMED BY: tocario[address] [id number] BY: [employer] [facility] [id number] 25 Vitamin D, 25-Hydroxy 30.1 ng/mL (Normal) Range: 30.0-100.0 Comments: Vitamin D deficiency has been defined by the [place] ofCleveland Clinic Euclid Hospitalcine and an Endocrine Society practice guideline as alevel of serum 25-OH vitamin D less than 20 ng/mL (1,2).The Endocrine Society went on to further define vitamin Dinsufficiency as a level between 21 and 29 ng/mL (2).1. IOM ([place] of Medicine). 2010. Dietary reference intakes for calcium and D. [place]: The National Academies Press.2. Fernando MF, Cedric AGUIAR, Teresa ALBERTS, et al. Evaluation, treatment, and prevention of vitamin D deficiency: an Endocrine Society clinical practice guideline. JCEM. 2010; 96(7):1911-30. 95-Zuk-43421:42 URINALYSIS, W/ MICRO Comments: PATIENT WAS FASTINGPERFORMED BY: tocario[address] [id number] BY: [employer] 360 Rrkxhi8505 [facility] [id number] (69026) Microscopic Examination See below: (Normal) Comments: Microscopic was indicated and was performed. Microscopic Examination MICRON (Normal) Comments: Microscopic follows if indicated. Nitrite, Urine Negative (Normal) Urobilinogen,Semi-Qn 0.2 mg/dL (Normal) Range: 0.2-1.0 Bilirubin Negative (Normal) Occult Blood Negative (Normal) Ketones Negative (Normal) Glucose Negative (Normal) Protein Negative (Normal) WBC Esterase Negative (Normal) Appearance Clear (Normal) Urine-Color Yellow (Normal) pH 6.0 (Normal) Range: 5.0-7.5 Specific [place] 1.021 (Normal) Range: 1.005-1.030 78-Aql-41013:42 METABOLIC PANEL, Comments: PATIENT WAS FASTINGPERFORMED BY: [facility] Icqugmyuzd6741 [facility] [id number] BY: CB [facility] Mfbrii0535 [facility] [id number] [facility] (49692) ALT (SGPT) 22 [iU]/L (Normal) Range: 0-44 [...] Comments: PATIENT WAS FASTINGPERFORMED BY: BN [facility] Oaaewlsdzz5185 [facility] [id number] BY: CB [facility] Gqeraa1493 [facility] [id number] (77591) LP-IR Score 46 (Abnormal) Comments: INSULIN RESISTANCE MARKER <--Insulin Sensitive Insulin Resistant--> Percentile in Reference PopulationInsulin Resistance ScoreLP-IR Score Low 25th 50th 75th High <27 27 45 63 >63LP-IR Score is inaccurate if patient is non-fasting. .The LP-IR score is a laboratory developed i [facility] that has beenassociated with insulin [...] were developed and their performance characteristicsdetermined by [employer]. These assays have not been cleared by [...] 1600 - 2000 Very High > 2000 05-Qst-82690:42 CBC with auto diff Comments: PATIENT WAS FASTINGPERFORMED BY: BN [facility] Pnmitwquvs7876 [facility] [id number] BY: CB [facility] Hjmedp9230 [facility] [id number]; fu 3-24 (71980) Immature Grans (Abs) 0.0 {x10E3/uL} (Normal) Range: [...] (Normal) Range: 3.4-10.8 :59 HgA1C , Office (97313) HgA1C , Office 5.4 % (Normal) Range: 4.6 - 7.1 :55 Metabolic Panel, Basic Comments: now before CT; PATIENT NOT FASTINGPERFORMED BY: [employer] [id number] Information: [id number], 681437 (95248) Calcium, Serum 9.4 mg/dL (Normal) Range: 8.6-10.2 [...] BY NMR Comments: PATIENT WAS FASTINGPERFORMED BY: [facility] HealthcareMark Ville 005877 [facility] [id number] BY: [facility] [id number] Information: [id number], 744228; fu 9- DB (04196) LP-IR Score 44 (Normal) Comments: INSULIN RESISTANCE MARKER <--Insulin Sensitive Insulin Resistant--> Percentile in Reference PopulationInsulin Resistance ScoreLP-IR Score Low 25th 50th 75th High <27 27 45 63 >63LP-IR Score is inaccurate if patient is non-fasting. .The LP-IR score is a laboratory developed i [facility] that has beenassociated with insulin [...] were developed and their performance characteristicsdetermined by [employer]. These assays have not been cleared by [...] 1600 - 2000 Very High > 2000 98-Ysu-19501:42 METABOLIC PANEL, Comments: PATIENT WAS FASTINGPERFORMED BY: BN [facility] Hfbshmwabe1873 [facility] [id number] BY: CB [facility] Igbewn4903 [facility] [id number] [facility] (95879) ALT (SGPT) 18 [iU]/L (Normal) Range: 0-44 [...] auto diff Comments: PATIENT WAS FASTINGPERFORMED BY: [address] [id number] BY: [place] 1626570 [facility] [id number] (11083) Immature Grans (Abs) 0.0 {x10E3/uL} (Normal) Range: [...] Microscopic Examination Comments: PATIENT NOT FASTINGPERFORMED BY: [place] 1626570 [facility] [id number] Bacteria None seen (Normal) Mucus Threads Present (Normal) Epithelial Cells (non renal) None seen {/hpf} (Normal) Range: 0 - 10 RBC 0-2 {/hpf} (Normal) Range: 0 - 2 WBC 0-5 {/hpf} (Normal) Range: 0 - 5 :48 PSA (PROSTATE SPECIFIC Comments: PATIENT NOT FASTINGPERFORMED BY: [employer] Idkceb3793 [facility] [id number] ANTIGEN) (V76.44) Prostate Specific Ag, 0.9 ng/mL (Normal) Range: 0.0-4.0 Serum Comments: Tangler ECLIA methodology. .According to the [place] [employer], Serum PSA shoulddecrease and remain at undetectable levels after radicalprostatectomy. The AUA defines biochemical recurrence as an initialPSA value 0.2 ng/mL or greater followed by a subsequent confirmatoryPSA value 0.2 ng/mL or greater.Values obtained with d ifferent assay methods or kits cannot be usedinterchangeably. Results cannot be interpreted as absolute evidenceof the presence or absence of malignant disease. :48 CALCIFIDIOL (02157) VIT D 25 Comments: PATIENT NOT FASTINGPERFORMED BY: [employer] Bbxgyx4296 [facility] [id number] Vitamin D, 25-Hydroxy 31.1 ng/mL (Normal) Range: 30.0-100.0 Comments: Vitamin D deficiency has been defined by the [place] ofC[facility] Clinic [facility]ucl[facility] Hospitalcine and an Endocrine Society practice guideline as alevel of serum 25-OH vitamin D less than 20 ng/mL (1,2).The Endocrine Society went on to further define vitamin Dinsufficiency as a level between 21 and 29 ng/mL (2).1. IOM ([place] of Medicine). 2010. Dietary reference intakes for calcium and D. [place]: The National Academies Press.2. Fernando MF, Cedric AGUIAR, Teresa ALBERTS, et al. Evaluation, treatment, and prevention of vitamin D deficiency: an Endocrine Society clinical practice guideline. JCEM. 2010; 96(7):1911-30. :48 URINALYSIS, W/ MICRO (18903) Comments: PATIENT NOT FASTINGPERFORMED BY: LabCoRobert [facility] SomersetQorkne9427 [facility] [id number] Microscopic Examination See below: (Normal) Comments: Microscopic was indicated and was performed. Microscopic Examination MICRON (Normal) Comments: Microscopic follows if indicated. Nitrite, Urine Negative (Normal) Urobilinogen,Semi-Qn 0.2 mg/dL (Normal) Range: 0.2-1.0 Bilirubin Negative (Normal) Occult Blood Negative (Normal) Ketones Negative (Normal) Glucose Negative (Normal) Protein Trace (Normal) WBC Esterase Negative (Normal) Appearance Clear (Normal) Urine-Color Yellow (Normal) pH 7.0 (Normal) Range: 5.0-7.5 Specific [place] 1.025 (Normal) Range: 1.005-1.030 27-Ojy-48263:48 METABOLIC PANEL, COMPREHENSIVE Comments: PATIENT NOT FASTINGPERFORMED BY: LabCoRobert [facility] SomersetXjmddh0882 [facility] [id number] (73824) ALT (SGPT) 18 [iU]/L (Normal) Range: 0-44 [...] mg/dL (Normal) Range: 65-99 :48 LIPID PANEL (49415) Comments: PATIENT NOT FASTINGPERFORMED BY: [employer] Bkxoqp7234 [facility] [id number] LDL/HDL Ratio 2.1 {ratio_units} (Normal) Range: 0.0-3.6 [...] Range: 100-199 :48 CBC with auto diff (02636) Comments: PATIENT NOT FASTINGPERFORMED BY: Mobile Service ProsRobert Wood Johnson University Hospital SomersetYnxwuf5754 [facility] [id number]; apt. 2-26-16 Immature Grans (Abs) 0.0 {x10E3/uL} [...] {x10E3/uL} (Normal) Range: 3.4-10.8 03-Jan-20158:20 LIPID PANEL (60191) Comments: PATIENT WAS FASTINGPERFORMED BY: LabAscension [facility] Hospital6370 [facility] [id number] Information: [id number]; non-emergent till apt LDL/HDL Ratio 2.3 {ratio_units} [...] Cholesterol, Total 129 mg/dL (Normal) Range: 100-199 21-Xjv-088375:02 CBC-Complete Blood Cnt No Diff Comments: Test performed at:[facility] [address] [place] [address] MPV 9.7 fL (Normal) Range: [...] 4.6-6.2 WBC 5.7 K/mm3 (Normal) Range: 4.4-11.0 35-Vpl-127788:02 Comprehensive Metabolic Profil Comments: Test performed at:[facility] [address] [place], [place] [id number] GAP 4 (Abnormal) Range: 5-15 CO2 30.0 [...] Comments: Please note revised CREATININE reference range gzilzjgul46/22/2015. BUN 16 mg/dL (Normal) Range: 7-18 GLU 100 mg/dL (Normal) Range: 70-110 52-Tgk-558851:02 Erythrocyte Sed Rate Comments: Test performed at:[facility] [address] [place] [address] SED RATE 9 mm/h (Normal) Range: 0-20 81-Lia-95570:50 Urinalysis, Office (73367) UA - LEUKOCYTE ESTERASE Negative (Normal) UA - NITRITE Negative (Normal) URINE UROBILINGN RENÉE TIMED 2 mg/dL (Normal) UA - PROTEIN Negative mg/dL (Normal) UA - PH 5.0 (Normal) UA - BLOOD Negative (Normal) UA - SPECIFIC GRAVITY 1.015 (Normal) UA - KETONES Negative mg/dL (Normal) UA - BILIRUBIN Negative (Normal) UA - GLUCOSE Negative (Normal) 23-Eqf-086534:04 HgA1C , Office (94364) HgA1C , Office 5.6 % (Normal) Range: 4.6 - 7.1 72-Vng-544303:04 Blood Glucose , Office (03853) Blood Glucose , Office 124 (Normal) :35 Microscopic Examination Comments: PATIENT WAS FASTINGPERFORMED BY: [employer]6370 [facility] [id number] Bacteria None seen (Normal) Mucus Threads Present (Normal) Epithelial Cells (non renal) None seen {/hpf} (Normal) Range: 0 - 10 RBC 0-2 {/hpf} (Normal) Range: 0 - 2 WBC 0-5 {/hpf} (Normal) Range: 0 - 5 :35 CALCIFIDIOL (08708) VIT D 25 Comments: PATIENT WAS FASTINGPERFORMED BY: [employer]6370 [facility] [id number] Vitamin D, 25-Hydroxy 29.1 ng/mL (Abnormal) Range: 30.0-100.0 Comments: Vitamin D deficiency has been defined by the [place] of[place]icine and an Endocrine Society practice guideline as alevel of serum 25-OH vitamin D less than 20 ng/mL (1,2).The Endocrine Society went on to further define vitamin Dinsufficiency as a level between 21 and 29 ng/mL (2).1. IOM ([place] of Medicine). 2010. Dietary reference intakes for calcium and D. [place]: The National Academies Press.2. Fernando MF, Cedric AGUIAR, Teresa ALBERTS, et al. Evaluation, treatment, and prevention of vitamin D deficiency: an Endocrine Society clinical practice guideline. JCEM. 2010; 96(7):1911-30. :35 URINALYSIS, W/ MICRO (05439) Comments: PATIENT WAS FASTINGPERFORMED BY: LabBL HealthcareRobert Wood Johnson University Hospital SomersetWgvccb4282 [facility] [id number] Microscopic Examination See below: (Normal) Comments: Microscopic was indicated and was performed. Microscopic Examination MICRON (Normal) Comments: Microscopic follows if indicated. Nitrite, Urine Negative (Normal) Urobilinogen,Semi-Qn 0.2 mg/dL (Normal) Range: 0.0-1.9 Bilirubin Negative (Normal) Occult Blood Negative (Normal) Ketones Negative (Normal) Glucose Negative (Normal) Protein Negative (Normal) WBC Esterase Negative (Normal) Appearance Clear (Normal) Urine-Color Yellow (Normal) pH 7.5 (Normal) Range: 5.0-7.5 Specific [place] 1.023 (Normal) Range: 1.005-1.030 :35 METABOLIC PANEL, COMPREHENSIVE Comments: PATIENT WAS FASTINGPERFORMED BY: BrainSINS LabBL HealthcareRobert Wood Johnson [facility] Hospital SomersetIzxpyp3013 [facility] [id number] (06895) ALT (SGPT) 22 [iU]/L (Normal) Range: 0-44 [...] mg/dL (Normal) Range: 65-99 :35 LIPID PANEL (22564) Comments: PATIENT WAS FASTINGPERFORMED BY: [employer]70 [place] Kylin Net Information TechnologyNovant Health, [facility] [id number] LDL/HDL Ratio 2.5 {ratio_units} (Normal) Range: 0.0-3.6 [...] DIFF WBC Comments: PATIENT WAS FASTINGPERFORMED BY: [employer]70 [facility] [id number] Information: [id number] (74693) Immature Grans (Abs) 0.0 {x10E3/uL} (Normal) Range: [...] (Normal) Range: 3.4-10.8 :58 HgA1C , Office (29933) HgA1C , Office 5.5 % (Normal) Range: 4.6 - 7.1 :58 Blood Glucose , Office (10462) Blood Glucose , Office 107 (Normal) :33 PSA (PROSTATE SPECIFIC Comments: PATIENT WAS FASTINGPERFORMED BY: [facility]6370 [facility] [id number] ANTIGEN) (V76.44) Prostate Specific Ag, 0.8 ng/mL (Normal) Range: 0.0-4.0 Serum Comments: Teresa ECLIA methodology. .According to the [place] [employer], Serum PSA shoulddecrease and remain at undetectable levels after radicalprostatectomy. The AUA defines biochemical recurrence as an initialPSA value 0.2 ng/mL or greater followed by a subsequent confirmatoryPSA value 0.2 ng/mL or greater.Values obtained with d ifferent assay methods or kits cannot be usedinterchangeably. Results cannot be interpreted as absolute evidenceof the presence or absence of malignant disease. :33 CALCIFIDIOL (74181) VIT D 25 Comments: PATIENT WAS FASTINGPERFORMED BY: [employer] Zwtjcs7490 [facility] [id number] Vitamin D, 25-Hydroxy 33.6 ng/mL (Normal) Range: 30.0-100.0 Comments: Vitamin D deficiency has been defined by the [place] ofC[facility] Clinic [facility]ucl[facility] Hospitalcine and an Endocrine Society practice guideline as alevel of serum 25-OH vitamin D less than 20 ng/mL (1,2).The Endocrine Society went on to further define vitamin Dinsufficiency as a level between 21 and 29 ng/mL (2).1. IOM ([place] of Medicine). 2010. Dietary reference intakes for calcium and D. [place]: The National Academies Press.2. Fernando MF, Cedric AGUIAR, Teresa ALBERTS, et al. Evaluation, treatment, and prevention of vitamin D deficiency: an Endocrine Society clinical practice guideline. JCEM. 2010; 96(7):1911-30. :33 METABOLIC PANEL, COMPREHENSIVE Comments: PATIENT WAS FASTINGPERFORMED BY: [employer] Mmoivy0282 [facility] [id number] (71980) ALT (SGPT) 32 [iU]/L (Normal) Range: 0-44 [...] mg/dL (Normal) Range: 65-99 :33 LIPID PANEL (13801) Comments: PATIENT WAS FASTINGPERFORMED BY: [employer]70 [facility] [id number] LDL/HDL Ratio 2.4 {ratio_units} (Normal) Range: 0.0-3.6 [...] MANUAL DIFF Comments: PATIENT WAS FASTINGPERFORMED BY: [employer]70 [facility] [facility] [id number] Information: [id number] (79774) Immature Grans (Abs) 0.0 {x10E3/uL} (Normal) Range: [...] (Normal) Range: 3.4-10.8 :09 HgA1C , Office (84363) HgA1C , Office 5.6 % (Normal) Range: 4.6 - 7.1 1-Ikh-829195:09 Blood Glucose , Office (30226) Blood Glucose , Office 122 (Normal) 33-Nta-365085:41 Throat Culture (95373) Comments: PATIENT NOT FASTINGPERFORMED BY: LabAscension Providence Hospital6370 [facility] [id number] Information: SRC:ASHLY [id number] Result 1 RRF (Normal) Comments: Routine respiratory jose antonio Upper Respiratory Culture Final report (Normal) 50-Mya-46320:38 Rapid Strep Test, Office (85062) Rapid Strep Test, Office Negative (Normal) 25-Vae-384480:37 Blood Glucose , Office (16815) Blood Glucose , Office 123 (Normal) :37 HgA1C , Office (57200) HgA1C , Office 5.9 % (Normal) Range: 4.6 - 7.1 63-Kor-701552:11 METABOLIC PANEL, Comments: PATIENT NOT FASTINGPERFORMED BY: ADRIANA [employer]70 [facility] [id number] Information: [id number] COMPREHENSIVE (29065) ALT (SGPT) 27 [iU]/L (Normal) Range: 0-44 [...] Glucose, Serum 90 mg/dL (Normal) Range: 65-99 59-Bwj-917641:11 LIPID PANEL (31758) Comments: PATIENT NOT FASTINGPERFORMED BY: LabCoSapio Systems ApS70 [facility] [id number] LDL/HDL Ratio 2.0 {ratio_units} (Normal) Range: 0.0-3.6 LDL Cholesterol Calc 69 mg/dL (Normal) Range: 0-99 VLDL Cholesterol Kylie 21 mg/dL (Normal) Range: 5-40 HDL Cholesterol 35 mg/dL (Abnormal) Comments: According to ATP-III Guidelines, HDL-C >59 mg/dL is considered anegative risk factor for CHD. Triglycerides 103 mg/dL (Normal) Range: 0-149 Cholesterol, Total 125 mg/dL (Normal) Range: 100-199 1-Vli-712610:19 Comp. Metabolic Panel (14) Comments: PERFORMED BY: [employer]6370 [facility] [id number] ALT (SGPT) 26 [iU]/L (Normal) Range: 0-44 [...] Lipid Panel With LDL/HDL Comments: PERFORMED BY: [employer] Xhzsrx7369 [facility] [id number] Ratio LDL Cholesterol Calc 88 mg/dL (Normal) Range: 0-99 LDL/HDL Ratio 2.3 {ratio_units} (Normal) Range: 0.0-3.6 HDL Cholesterol 38 mg/dL (Abnormal) Comments: According to ATP-III Guidelines, HDL-C >59 mg/dL is considered anegative risk factor for CHD. VLDL Cholesterol Kylie 26 mg/dL (Normal) Range: 5-40 Cholesterol, Total 152 mg/dL (Normal) Range: 100-199 Triglycerides 128 mg/dL (Normal) Range: 0-149 3-Mxk-017122:19 Platelet Count on Citrated Comments: PERFORMED BY: [employer]6370 [facility] [id number] Bld Plt Count, Citrated PAC {X10E3/uL} Range: 155-379 Bld (Normal) Comments: Platelets appear clumped. Vitamin D, 29.0 ng/mL (Abnormal) Comments: PERFORMED BY: [employer] Xjkljp8239 [facility] [id number] :19 25-Hydroxy Range: 30.0-100.0 Comments: Vitamin D deficiency has been defined by the [place] ofC[facility] Hospitalcine and an Endocrine Society practice guideline as alevel of serum 25-OH vitamin D less than 20 ng/mL (1,2).The Endocrine Society went on to further define vitamin Dinsufficiency as a level between 21 and 29 ng/mL (2).1. IOM ([place] of Medicine). 2010. Dietary reference intakes for calcium and D. [place]: The National Academies Press.2. Fernando MF, Cedric NC, Teresa ALBERTS, et al. Evaluation, treatment, and prevention of vitamin D deficiency: an Endocrine Society clinical practice guideline. JCEM. 2010; 96(7):1911-30. :18 Blood Glucose , Office (38247) Blood Glucose , Office 126 (Normal) :18 HgA1C , Office (55425) HgA1C , Office 5.3 % (Normal) Range: 4.6 - 7.1 :37 CBC (Auto) (27471) Comments: citrate tube; PATIENT NOT FASTINGPERFORMED BY: [employer] ProsJason Ville 4488770 [facility] [id number] Information: ADD [id number] AND DRAW FEE 99 6660 Platelets 154 [...] Range: 3.4-10.8 :24 Blood Glucose , Office (08849) Blood Glucose , Office 113 (Normal) :24 HgA1C , Office (58919) HgA1C , Office 5.2 % (Normal) Range: 4.6 - 7.1 :47 PSA (Prostate Specific Comments: PATIENT NOT FASTINGPERFORMED BY: LabAnna Ville 5810770 [facility] [id number] Information: [id number] Antigen), Screening (58806) Prostate Specific Ag, 0.8 ng/mL (Normal) Range: 0.0-4.0 Serum Comments: Teresa ECLIA methodology. .According to the [place] [employer], Serum PSA shoulddecrease and remain [...] of malignant disease. :55 HgA1C , Office (36319) HgA1C , Office 5.6 % (Normal) Range: 4.6 - 7.1 :55 Blood Glucose , Office (03796) Blood Glucose , Office 111 (Normal) :08 CBC WITH MANUAL DIFF Comments: 4 months; PATIENT WAS FASTINGPERFORMED BY: [facility]6370 [facility] [id number] Information: [id number] (76009) Immature Grans (Abs) 0.0 {x10E3/uL} (Normal) Range: [...] PANEL, COMPREHENSIVE Comments: PATIENT WAS FASTINGPERFORMED BY: [employer]70 [facility] [id number] (74134) ALT (SGPT) 22 [iU]/L (Normal) Range: 0-44 [...] mg/dL (Normal) Range: 65-99 :08 LIPID PANEL (91595) Comments: PATIENT WAS FASTINGPERFORMED BY: [employer]6370 [facility] [id number] LDL/HDL Ratio 1.9 {ratio_units} (Normal) Range: 0.0-3.6 HDL Cholesterol 33 mg/dL (Abnormal) Comments: According to ATP-III Guidelines, HDL-C >59 mg/dL is considered anegative risk factor for CHD. LDL Cholesterol Calc 63 mg/dL (Normal) Range: 0-99 VLDL Cholesterol Kylie 24 mg/dL (Normal) Range: 5-40 Triglycerides 120 mg/dL (Normal) Range: 0-149 Cholesterol, Total 120 mg/dL (Normal) Range: 100-199 :08 TSH (73388) Comments: PATIENT WAS FASTINGPERFORMED BY: BrainSINS [employer]Du[employer] Bmtfye4825 [place] Kylin Net Information TechnologyNovant Health, [facility] [id number] TSH 4.380 {uIU/mL} (Normal) Range: 0.450-4.500 52-Wha-192711:04 C-Reactive Protein (07569) Comments: PATIENT NOT FASTINGPERFORMED BY: BrainSINS [facility] Owxaox1827 VenegasMiloNovant Health, [facility] [id number] C-Reactive Protein, Quant 4.5 mg/L (Normal) Range: 0.0-4.9 :04 Sed Rate Erythrocyte Comments: PATIENT NOT FASTINGPERFORMED BY: BrainSINS [facility] Zqbksf9732 [facility] [id number] Information: [id number] (76939) Sedimentation Rate-Westergren 5 mm/h (Normal) Range: 0-30 55-Rfr-349818:22 HgA1C , Office (31428) HgA1C , Office 5.3 % (Normal) Range: 4.6 - 7.1 44-Fcs-244719:22 Blood Glucose , Office (15251) Blood Glucose , Office 111 (Normal) :17 Microscopic Examination Comments: PATIENT WAS FASTINGPERFORMED BY: BrainSINS LabCo Bvpiix7994 [facility] [id number] Bacteria None seen (Normal) Mucus Threads Present (Normal) Epithelial Cells (non renal) None seen {/hpf} (Normal) Range: 0 - 10 RBC 0-3 {/hpf} (Normal) Range: 0 - 3 WBC None seen {/hpf} (Normal) Range: 0 - 5 1-Jac-392014:30 ABDOMEN/PELVIS WITHOUT CONT Radiology Report See Note [...] Leon M.D.December 31, 2011 at 5:51:04 PM [id number] Signed MJ/MJ If you are the ref erring physician and would like to consult with theradiologist who provided this interpretation, please contact Earnest Calix at [phone]. If this radiologist is unavailable, you will bedirected to another radiologist to assist. If you are a patient with a question regarding this report, pleasecontactyour referring physician directly. Professional Interpretation Provided By: [employer], Phone , These documents contain legally protected [...] on 01/01/12 1005 Sign by: LEESA LEON 8-Aui-626733:59 CBC with manual diff Comments: PATIENT NOT FASTINGPERFORMED BY: [facility] Eloabs8438 [facility] [id number] Information: [id number] (27725) Immature Grans (Abs) 0.0 {x10E3/uL} (Normal) Range: [...] (Normal) Range: 4.0-10.5 :59 Renal function Panel (15213) Comments: PATIENT NOT FASTINGPERFORMED BY: [facility] Bshixp8685 [facility] [id number] Albumin, Serum 4.5 g/dL (Normal) Range: 3.5-4.8 [...] Glucose, Serum 90 mg/dL (Normal) Range: 65-99 4-Vtr-790534:20 Urinalysis, Office (28933) UA - BILIRUBIN Negative (Normal) UA - BLOOD Negative (Normal) UA - GLUCOSE Negative (Normal) UA - KETONES Negative mg/dL (Normal) UA - LEUKOCYTE ESTERASE Negative (Normal) UA - NITRITE Negative (Normal) UA - PH 6.0 (Normal) UA - PROTEIN Negative mg/dL (Normal) UA - SPECIFIC GRAVITY 1.015 (Normal) URINE UROBILINGN RENÉE TIMED 2 mg/dL (Normal) :17 LIPID PANEL (92064) Comments: copy to yuliet; PATIENT WAS FASTINGPERFORMED BY: [employer] [place] [id number] LDL/HDL Ratio 2.1 {ratio_units} (Normal) Range: 0.0-3.6 LDL Cholesterol Calc 75 mg/dL (Normal) Range: 0-99 VLDL Cholesterol Kylie 32 mg/dL (Normal) Range: 5-40 HDL Cholesterol 35 mg/dL (Abnormal) Comments: According to ATP-III Guidelines, HDL-C >59 mg/dL is considered anegative risk factor for CHD. Triglycerides 159 mg/dL (Abnormal) Range: 0-149 Cholesterol, Total 142 mg/dL (Normal) Range: 100-199 :17 URINALYSIS, W/ MICRO (43960) Comments: PATIENT WAS FASTINGPERFORMED BY: [facility]BoxPaints[facility] [id number] Microscopic Examination See below: (Normal) Microscopic Examination MICRON (Normal) Comments: Microscopic follows if indicated. Nitrite, Urine Negative (Normal) Urobilinogen,Semi-Qn 0.2 mg/dL (Normal) Range: 0.0-1.9 Bilirubin Negative (Normal) Occult Blood Negative (Normal) Ketones Negative (Normal) Glucose Negative (Normal) Protein Negative (Normal) WBC Esterase Negative (Normal) Appearance Clear (Normal) Urine-Color Yellow (Normal) pH 7.5 (Normal) Range: 5.0-7.5 Specific [place] 1.016 (Normal) Range: 1.005-1.030 :17 METABOLIC PANEL, COMPREHENSIVE Comments: PATIENT WAS FASTINGPERFORMED BY: ADRIANA Mobile Service ProsRobert Wood Johnson University Hospital SomersetXeklhj6040 [facility] [id number] (90689) ALT (SGPT) 29 [iU]/L (Normal) Range: 0-44 [...] MANUAL DIFF Comments: PATIENT WAS FASTINGPERFORMED BY: LabCoRobert Wood Johnson University Hospital SomersetJjoyfk9783 [facility] [id number] Information: [id number] 1 (69368) Immature Grans (Abs) 0.0 {x10E3/uL} (Normal) Range: [...] (Normal) Range: 4.0-10.5 :55 HgA1C , Office (93234) HgA1C , Office 5.3 % (Normal) Range: 4.6 - 7.1 :55 Blood Glucose , Office (79174) Blood Glucose , Office 120 (Normal) :00 MRA HEAD WITHOUT CONTRAST Radiology Report See Note (Normal) Comments: PROCEDURE: MRA OF THE HEAD WITHOUT CONTRAST REASON FOR EXAM: Male, 76 years old. Severe headache. TECHNIQUE: 3-D bdph-fh-wburet (TOF) imaging was performed with MIPs.Thestudy was [...] There is no demonstrated aneurysm of the kw[place] of [place]. There is nomajor vessel occlusion or hemodynamically significant stenosis. There isno demonstrated abnormality of the visualized brain. IMPRESSION:There is no evidence of aneurysmal formation. 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 Signed:Abdoulaye Garcia M.D.December 24, 2011 at 8:25:06 AM [phone] Signed GP/GP If you are the referring physician and would like to consul t with theradiologist who provided this interpretation, please contact Earnest Underwood at [phone]. If this radiologist is unavailable, youwill be directed to another radiologist to assist. If you are a patient with a question regarding this report, pleasecontactyour referring physician directly. Professional Interpretation Provided By: [employer], Phone , th vitaliy documents contain legally [...] 12/24/11 1032 Sign by: Abdoulaye Garcia MD 23-Cmc-243540:46 BRAIN/HEAD W/WO CONTRAST Radiology Report See Note [...] of the right M1 segment series 1002/19, tqibgb5070/18-19 which may represent tortuosity or ectasia, aneurysm [...] brain. Signed:Mohan Moseley M.D.Nov at 4:48:04 PM [id number] Signed PF/PF If you are the referring physician and would like to consult with theradiologist who provided this interpretation, please contact Escobar Gaston M.D. at [phone]. If this radiologist is unavailable, you will bedirected to another radiologist to assist. If you are a patient with a question regarding this report, pleasecontactyour r eferring physician directly. Professional Interpretation Provided By: [employer], Phone , These documents contain legally protected [...] on 12/20/111654 Sign by: Mohan Moseley MD 60-Ygm-552751:46 SPINE,CERVICAL WITHOUT CONTRAS Radiology Report See Note [...] Moseley M.D.December 20, 2011 at 7:16:11 PM [id number] Signed PF/PF If you are the referring physician and would like to consult with Tuniijordy who provided this interpretation, please contact Mohan Moseley M.D. at [phone]. If this radiologist is unavailable, you will bedirected to another radiologist to assist. If you are a patient with a question regarding this report, pleasecontactyour referring physician directly. Professional Interpretation Provided By: [employer], Phone , These documents contain legally protected [...] on 12/20/111922 Sign by: Mohan Moseley MD 45-Tfh-401326:00 CREATININE BLOOD (48866) Comments: PATIENT NOT FASTINGPERFORMED BY: Ilesfay Technology GroupAscension Providence Hospital6370 [facility] [id number] Information: [id number] eGFR If Africn Am 83 mL/min/1.73 (Normal) eGFR If NonAfricn Am 72 mL/min/1.73 (Normal) Creatinine, Serum 1.01 mg/dL (Normal) Range: 0.76-1.27 9-Tdm-828886:50 Aerobic Bacterial Culture Comments: PERFORMED BY: [facility] Tbwgzp7576 [facility] [id number] Information: SRC:FM Result 1 NG36 (Normal) Comments: No growth in 36 - 48 hours. Aerobic Bacterial Culture Final report (Normal) 91-Evl-342022:04 HgA1C , Office (90875) HgA1C , Office 5.4 % (Normal) Range: 4.6 - 7.1 55-Lsb-20440:34 CBC WITH MANUAL DIFF Comments: PATIENT WAS FASTINGPERFORMED BY: Ilesfay Technology GroupAscension Providence Hospital6370 [facility] [id number] Information: [id number] (93329) Immature Grans (Abs) 0.0 {x10E3/uL} (Normal) Range: [...] {x10E3/uL} (Normal) Range: 4.0-10.5 :34 LIPID PANEL (07511) Comments: PATIENT WAS FASTINGPERFORMED BY: [facility] [id number] LDL/HDL Ratio 1.7 {ratio_units} (Normal) Range: 0.0-3.6 [...] PANEL, COMPREHENSIVE Comments: PATIENT WAS FASTINGPERFORMED BY: [employer]70 [facility] [id number] (97452) ALT (SGPT) 28 [iU]/L (Normal) Range: 0-55 [...] Glucose, Serum 103 mg/dL (Abnormal) Range: 65-99 47-Qow-93140:34 MICROALBUMIN: CREATININE RATIO Comments: PATIENT WAS FASTINGPERFORMED BY: ADRIANA [facility] Qeetxg2350 [facility] [id number] (29987) AND (24844) Microalb/Creat Ratio 2.5 {mg/g_creat} (Normal) Range: 0.0-30.0 Microalbumin, Urine 4.4 ug/mL (Normal) Range: 0.0-17.0 Creatinine, Urine 174.4 mg/dL (Normal) Range: 22.0-328.0 68-Tud-268125:55 AMADA CULTURE-OTHER (73451) Comments: PATIENT NOT FASTINGPERFORMED BY: [facility] Ifhsac7880 [facility] [id number] Information: SRC:THRT [id number] Result 1 RRF (Normal) Comments: Routine respiratory jose antonio Upper Respiratory Culture Final report (Normal) 36-Nnc-503511:37 Rapid Strep Test, Office (33770) Rapid Strep Test, Office Negative (Normal) :36 MICROALBUMIN: CREATININE RATIO Comments: PATIENT WAS FASTINGPERFORMED BY: [employer] Ruzwtz3060 [facility] [id number] (69608) AND (64083) Microalb/Creat Ratio 1.8 {mg/g_creat} (Normal) Range: 0.0-30.0 Microalbumin, Urine 2.7 ug/mL (Normal) Range: 0.0-17.0 Creatinine, Urine 147.3 mg/dL (Normal) Range: 22.0-328.0 :36 METABOLIC PANEL, COMPREHENSIVE Comments: PATIENT WAS FASTINGPERFORMED BY: [employer]6370 [facility] [id number] (59045) ALT (SGPT) 27 [iU]/L (Normal) Range: 0-55 [...] mg/dL (Normal) Range: 65-99 :36 LIPID PANEL (48792) Comments: PATIENT WAS FASTINGPERFORMED BY: [employer]70 [place] [facility] [id number] LDL/HDL Ratio 2.2 {ratio_units} (Normal) Range: 0.0-3.6 [...] MANUAL DIFF Comments: PATIENT WAS FASTINGPERFORMED BY: [employer]70 [facility] [id number] Information: [id number]; f/u 06/17/11 (31350) Immature Grans (Abs) 0.0 {x10E3/uL} (Normal) Range: [...] 4.10-5.60 WBC 4.6 {x10E3/uL} (Normal) Range: 4.0-10.5 55-Bmy-030690:14 CBC WITH MANUAL DIFF Comments: PATIENT WAS FASTINGPERFORMED BY: [facility]Co[facility] SomersetLnucqv3809 [facility] [id number] Information: [id number] ([id number]) Immature Grans (Abs) 0.0 {x10E3/uL} (Normal) Range: [...] {x10E3/uL} (Normal) Range: 4.0-10.5 :14 LIPID PANEL (41733) Comments: PATIENT WAS FASTINGPERFORMED BY: [employer] [facility] [id number] LDL/HDL Ratio 2.3 {ratio_units} (Normal) Range: 0.0-3.6 [...] COMPREHENSIVE Comments: PATIENT WAS FASTINGPERFORMED BY: [employer] SomersetJqbgxa7157 [facility] [id number] ([id number]) ALT (SGPT) 25 [iU]/L (Normal) Range: 0-55 [...] Glucose, Serum 97 mg/dL (Normal) Range: 65-99 17-Mdo-462570:14 MICROALBUMIN: CREATININE RATIO Comments: PATIENT WAS FASTINGPERFORMED BY: [facility]6370 [facility] [id number] ([id number]) AND (71909) Microalb/Creat Ratio 16.7 {mg/g_creat} (Normal) Range: 0.0-30.0 Microalbumin, Urine 17.9 ug/mL (Abnormal) Range: 0.0-17.0 Creatinine, Urine 107.4 mg/dL (Normal) Range: 22.0-328.0 28-Nvj-082179:04 URINE AMADA CULTURE-IDENTIFICATN Comments: PATIENT NOT FASTINGPERFORMED BY: [facility] Rhihnp2661 [address] [place] [id number] Information: [id number] (50643) Result 1 NG36 (Normal) Comments: No growth [...] 0.8-1.3 GLU 95 mg/dL (Normal) Range: 70-110 44-Ajt-327816:01 POST VOID RESIDUAL BLADDER Radiology Report See Note (Normal) Comments: Exam Number: [id number] LINICAL:The patient is a 75-year-old man with [...] 49.3 disease. Reported By: PAM LAYTON M.D. 67-Vvb-277333:41 Urinalysis, Office (75426) UA - BILIRUBIN Negative (Normal) UA - [...] CHOL 112 mg/dL (Normal) Comments: <200 mg/dL Peegwecdk718-717 mg/dL Borderline>240 mg/dL High Risk :27 VIT D,25 47088 40.0 ng/mL (Normal) Range: 32.0-100.0 Comments: Recent studies consider the lower limit of 32.0 ng/mL to candace threshold for optimal health.Syed PETIT. J Nutr. 2004;135(2):317-22.Performed at: - [facility] [address]Lab Director: Shawanda Beatty MD, Phone: [phone] :[phone] C-REACTIVE PROT 7.78 mg/L (Abnormal) Range: [...] SED RATE 27 mm/h (Abnormal) Range: 0-20 35-Ebd-111562:45 ABDOMEN/PELVIS WITH CONTRAST Radiology Report See Note (Normal) Comments: Exam Number: [id number] CLINICAL:Left lower quadrant pain. CT ABDOMEN AND [...] Panel, Comments: PATIENT WAS FASTINGPERFORMED BY: [facility]6370 [facility] [id number] Information: [id number] Comprehensive (83334) ALT (SGPT) 24 [iU]/L (Normal) Range: 0-55 [...] mg/dL (Normal) Range: 65-99 01-Aug-20098:33 Lipid Panel (69621) Comments: PATIENT WAS FASTINGPERFORMED BY: [facility]CoRobert [facility] SomersetQkfuhw7020 [facility] [id number] HDL Cholesterol 37 mg/dL (Abnormal) Comments: According [...] (PROSTATE SPECIFIC Comments: PATIENT WAS FASTINGPERFORMED BY: [facility]Critical access hospital [id number] ANTIGEN) (V76.44) Prostate Specific Ag, 2.5 ng/mL (Normal) Range: 0.0-4.0 Serum Comments: BIOCUREXIA methodology..According to the [place] [employer], Serum PSA shoulddecrease and remain [...] FUNCTION PANEL Comments: PATIENT WAS FASTINGPERFORMED BY: [employer]70 OneCubicleCritical access hospital [id number] Information: [id number] (26511) ALT (SGPT) 34 [iU]/L (Normal) Range: 0-55 Alkaline Phosphatase, S 74 [iU]/L (Normal) Range: 25-160 AST (SGOT) 28 [iU]/L (Normal) Range: 0-40 Bilirubin, Direct 0.16 mg/dL (Normal) Range: 0.00-0.40 Bilirubin, Total 0.7 mg/dL (Normal) Range: 0.1-1.2 Albumin, Serum 4.4 g/dL (Normal) Range: 3.5-4.8 Protein, Total, Serum 7.8 g/dL (Normal) Range: 6.0-8.5 :29 Lipid Panel (27530) Comments: PATIENT WAS FASTINGPERFORMED BY: [employer]70 OneCubicleCritical access hospital [id number] LDL Cholesterol Calc 110 mg/dL (Abnormal) Range: 0-99 LDL/HDL Ratio 3.1 {ratio_units} (Normal) Range: 0.0-3.6 HDL Cholesterol 36 mg/dL (Abnormal) Comments: According to ATP-III Guidelines, HDL-C >59 mg/dL is considered anegative risk factor for CHD. Triglycerides 169 mg/dL (Abnormal) Range: 0-149 VLDL Cholesterol Kylie 34 mg/dL (Normal) Range: 5-40 Cholesterol, Total 180 mg/dL (Normal) Range: 100-199 26-Jan-20099:28 CBC WITH MANUAL DIFF (67602) Comments: PATIENT WAS FASTINGClinical Information: ADD [id number] PERFORMED BY: [facility] Hgzfop7602 [facility] [id number] Baso (Absolute) 0.0 {x10E3/uL} (Normal) Range: 0.0-0.2 [...] CREATININE RATIO Comments: PATIENT WAS FASTINGPERFORMED BY: [employer] SomersetHwfriw1748 [facility] [id number] (39831) AND (40243) Creatinine, Urine 200.6 mg/dL (Normal) Range: 22.0-328.0 Microalb/Creat Ratio 2.1 {mg/g_creat} (Normal) Range: 0.0-30.0 Microalbumin, Urine 4.2 ug/mL (Normal) Range: 0.0-17.0 :28 METABOLIC PANEL, COMPREHENSIVE Comments: PATIENT WAS FASTINGPERFORMED BY: [employer] Qpmnhs2752 [facility] [id number] (67506) A/G Ratio 1.3 (Normal) Range: 1.1-2.5 Albumin, [...] mmol/L (Normal) Range: 135-145 :28 LIPID PANEL (02655) Comments: 02-03; PATIENT WAS FASTINGPERFORMED BY: BoxedCritical access hospital [id number] Cholesterol, Total 149 mg/dL (Normal) Range: 100-199 [...] PATIENT WAS FASTINGClinical Information: ADD DRAW FEE [id number] ADD J 87943 PERFORMED BY: BoxedCritical access hospital [id number] (68103) A/G Ratio 1.3 (Normal) Range: 1.1-2.5 Albumin, [...] Serum 98 mg/dL (Normal) Range: 65-99 If -Grenadian >59 mL/min/1.73 Comments: Note: Persistent reduction for [...] mmol/L (Normal) Range: 135-145 :28 Lipid Panel (50937) Comments: in three months (approximately); PATIENT WAS FASTINGPERFORMED BY: [employer] [place] [id number] Cholesterol, Total 139 mg/dL (Normal) Range: 100-199 [...] (PROSTATE SPECIFIC Comments: PATIENT WAS FASTINGPERFORMED BY: [facility] [place] [id number] ANTIGEN) (V76.44) Prostate Specific Ag, Serum 1.0 ng/mL (Normal) Range: 0.0-4.0 Comments: Teresa ECLIA methodology. .According to the [place] [employer], PSA should beundetectable after radical prostatectomy. A PSA of less than0.5 ng/mL (or undetectable) is not likely to be associated withdisease recurrence within five years of treatment.Values obtained with different assay methods or kits cannot be usedinterchang eably. Results cannot be interpreted as absolute evidenceof the presence or absence of malignant disease. 42-Dnk-64706:19 CALCIFIDIOL (34338) VIT D 25 Comments: PATIENT WAS FASTINGPERFORMED BY: [facility] Bvqdfb2256 Venegas RoadDublin [place] [id number] Vitamin D, 25-Hydroxy 31.1 ng/mL (Abnormal) Range: 32.0-100.0 Comments: Recent studies consider the lower limit of 32.0 ng/mL to be athreshold for optimal health.Syed PETIT. J Nutr. 2004;135(2):317-22. 27-Idu-98131:19 C-Reactive Protein (52319) Comments: PATIENT WAS FASTINGPERFORMED BY: [facility] Jqbaxd8857 [address]as RoadDublin [place] [id number] C-Reactive Protein, Quant 8.2 mg/L (Abnormal) Range: 0.0-4.9 :19 TSH (81978) Comments: PATIENT WAS FASTINGPERFORMED BY: [facility] Konece2984 [address]eg[address] RoadDublin [place] [id number] TSH 2.354 {uIU/mL} (Normal) Range: 0.450-4.500 44-Rba-55250:19 MICROALBUMIN: CREATININE RATIO Comments: PATIENT WAS FASTINGPERFORMED BY: [facility] Lggjau4781 [address] RoadDublin [place] [id number] (43068) AND (33241) Microalbum.,U,Random 4.3 ug/mL (Normal) Range: 0.0-17.0 :19 METABOLIC PANEL, COMPREHENSIVE Comments: PATIENT WAS FASTINGPERFORMED BY: [facility] Okevii5209 [address] RoadDublin [place] [id number] (07715) A/G Ratio 1.2 (Normal) Range: 1.1-2.5 Albumin, [...] Serum 97 mg/dL (Normal) Range: 65-99 If -Grenadian >59 mL/min/1.73 Comments: Note: Persistent reduction for [...] Sodium, Serum 143 mmol/L (Normal) Range: 135-145 40-Kxs-48271:19 CBC WITH MANUAL DIFF (16069) Comments: PATIENT WAS FASTINGClinical Information: ADD DRAW FEE 200270 ADD J 74735 PERFORMED BY: LabAnna [place] [id number] [facility] [id number] Baso (Absolute) 0.0 {x10E3/uL} (Normal) Range: 0.0-0.2 [...] 11.7-15.0 WBC 5.5 {x10E3/uL} (Normal) Range: 4.0-10.5 94-Hdu-84457:19 LIPID PANEL (73563) Comments: PATIENT WAS FASTINGPERFORMED BY: [facility]Co[facility] SomersetZttkmr3705 [facility] [id number] Cholesterol, Total 161 mg/dL (Normal) Range: 100-199 HDL Cholesterol 36 mg/dL (Abnormal) Comments: According to ATP-III Guidelines, HDL-C >59 mg/dL is considered anegative risk factor for CHD. 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 Indication: PROSTATITIS NOS PROSTATITIS [...] Injection Indication: Shoulder pain Planned Observations CALCIFIDIOL (69870) VIT D 25Indication: Vitamin D deficiency, unspecified On: 24-Apr-2018 Request URINALYSIS, W/ MICRO (79920)Indication: Hypertension, benign On: 24-Apr-2018 Request LIPOPROTEIN, BLD, BY NMR (89837)Indication: Mixed hyperlipidemia On: 78-Tye-320453:08 Request METABOLIC PANEL, COMPREHENSIVE (99018)Indication: Hypertension, benign On: 75-Jsr-524711:08 Request CALCIFIDIOL (83265) VIT D 25Indication: Vitamin D deficiency, unspecified On: 52-Iaj-158374:08 Request URINALYSIS, W/ MICRO (54286)Indication: Hypertension, benign On: 9-Uoz-953404:21 Request SED RATE ERYTHROCYTE (42310)Indication: Diverticulitis On: :31 Request Comments: stat METABOLIC PANEL, COMPREHENSIVE (60484)Indication: Diverticulitis On: :31 Request Comments: stat CBC W/AUTO DIFF WBC (98762)Indication: Diverticulitis On: :31 Request Comments: stat Metabolic Panel, Basic (63766)Indication: Hypertension, benign On: 11-Aca-913834:24 Request Comments: recheck in 2 weeks Sed Rate Erythrocyte (92115)Indication: Elevated vitamin B12 level On: 57-Ptr-131298:23 Request CBC, Platelets & Auto Diff (39731)Indication: Abdominal pain, acute, right upper quadrant (Renamed from Acute abdominal pain in right upper quadrant) On: 58-Lal-469914:54 Request Metabolic Panel, Comprehensive (00382)Indication: Abdominal pain, acute, right upper quadrant (Renamed from Acute abdominal pain in right upper quadrant) On: 26-Xhz-080849:54 Request Lipase (66610)Indication: Abdominal pain, acute, right upper quadrant (Renamed from Acute abdominal pain in right upper quadrant) On: 67-Gvw-433937:53 Request Amylase (71849)Indication: Abdominal pain, acute, right upper quadrant (Renamed from Acute abdominal pain in right upper quadrant) On: 35-Axt-282852:53 Request Sed Rate Erythrocyte (51318)Indication: Abdominal pain, acute, right lower quadrant On: :12 Request CBC (Auto) (48291)Indication: Abdominal pain, acute, right lower quadrant On: :12 Request Metabolic Panel, Comprehensive (99423)Indication: Abdominal pain, acute, right lower quadrant On: :12 Request PSA (PROSTATE SPECIFIC ANTIGEN) (V76.44)Indication: Encounter for well adult exam with abnormal findings On: 80-Zhw-254755:49 Request CALCIFIDIOL (99058) VIT D 25Indication: Vitamin D deficiency, unspecified On: 98-Viv-444849:46 Request URINALYSIS, W/ MICRO (68533)Indication: Coronary artery disease On: :45 Request METABOLIC PANEL, COMPREHENSIVE (10431)Indication: Coronary artery disease On: : Request LIPID PANEL (99932)Indication: Coronary artery disease On: : Request CBC with auto diff (62612)Indication: Coronary artery disease On: : Request CBC (Auto) (51064)Indication: Hypertension, benign On: : Request Comments: citrate tube Lipid Panel (63644)Indication: Mixed hyperlipidemia On: : Request Metabolic Panel, Comprehensive (77344)Indication: Hypertension, benign On: : Request CALCIFEDIOL (57489)Indication: Vitamin D deficiency, unspecified On: : Request TSH (04370)Indication: Other anxiety states On: : Request MICROALBUMIN: CREATININE RATIO (49334) AND (57577)Indication: Hypertension On: : Request METABOLIC PANEL, COMPREHENSIVE (86535)Indication: Hypertension On: : Request LIPID PANEL (31508)Indication: Hypertension On: : Request CBC WITH MANUAL DIFF (16691)Indication: Hypertension On: 53-Afp-743244: Request AMADA CULTURE-OTHER (27072)Indication: Forearm On: 02-Oct-20118:59 Request OVA & PARASITE DIR SMEAR (81915)Indication: Diarrhea On: : Request C.Difficile, Stool (45610)Indication: Diarrhea On: : Request LEUKOCYTE COUNT, FECAL (03469)Indication: Diarrhea On: : Request AMADA CULTURE-STOOL (79963)Indication: Diarrhea On: : Request METABOLIC PANEL, BASIC (20832)Indication: Hypertension, benign On: 59-Mms-63442:05 Request Urinalysis, Office (43170)Indication: Urinary frequency On: 69-Qrp-326751:24 Request C-REACTIVE PROTEIN (81724)Indication: Abdominal pain, acute, left lower quadrant On: 66-Gss-551316:10 Request SED RATE ERYTHROCYTE (68963)Indication: Abdominal pain, acute, left lower quadrant On: 20-Cuo-482748:10 Request CBC WITH MANUAL DIFF (02800)Indication: Abdominal pain, acute, left lower quadrant On: 29-Ixt-380319:09 Request CALCIFIDIOL (23160) VIT D 25Indication: Vitamin D deficiency, unspecified On: :48 Request METABOLIC PANEL, COMPREHENSIVE (05760)Indication: Hypertension, benign On: :48 Request LIPID PANEL (95920)Indication: Hypertension, benign On: :48 Request CBC WITH MANUAL DIFF (37617)Indication: Hypertension, benign On: :48 Request Rapid Flu (64389 x 2)Indication: Fever On: 74-Jzo-869830:31 Request Planned Encounters Medical; [facility] 3 Month FU - On: 25-May-2018 10:45 [facility] Samia Dominguez MD, MD, Dana M Planned Procedures US DOPPLER CAROTID BILATERAL On: 17-Mar-2018 Intent (32857)By: Samia Dominguez MD, MD, Dana M Flu Vaccine (Quadrivalent) On: 09-Feb-2018 Intent 22938Hf: Smaia Dominguez MD Comments: Lot #:[id number] date: 6-09-94Fqzqys given:0.5mlRoute: IMSite given:L DltdGiven by: ElaineVIS and ABN signed [employer] Samia Dominguez MD ELECTROCARDIOGRAM, COMPLETE (ECG) On: 05-Sep-2017 Intent (28006)By: Samia Dominguez MD Comments: see scanned document [...] US DOPPLER CAROTID BILATERAL On: 22-Oct-2016 Intent (58161)By: Samia Dominguez MD, MD, Dana M Radiology - Lumbar SpineBy: On: 24-Jun-2016 Intent Samia Dominguez MD, MD, Dana M CT - Abdomen & Pelvis (IV On: 24-Jun-2016 Intent Contrast Needed)By: Alberto HARRY, Comments: kidney stone protocol. hx of heptomegaly. Samia Sanchez MD Flu Vaccine (Quadrivalent) On: 22-Jan-2016 Intent 78662Be: Samia Dominguez MD Comments: Lot #:[id number] date:9-25-08Kgbaci given:0.5mlRoute: IMSite given:L DltdGiven by: ElaineVIS and ABN signed [employer] Samia Dominguez MD CT - Abdomen (IV Contrast On: 06-Oct-2015 Intent Needed)By: Samia Dominguez MD Comments: attentiom pancrease Samia Dominguez MD ANGIOGRAM, CAROTID AND CEREBRAL On: 28-Jun-2015 Intent VESSELS, BILATERAL (80614)By: Comments: attention basilar artery and vertebrals Samia Dominguez MD, MD, Dana M Carotid DopplerBy: Alberto HARRY, On: 10-Jan-2015 Intent Samia Sanchez MD Flu Vaccine (Quadrivalent) On: 10-Jan-2015 Intent 85899Ph: Samia Dominguez MD Comments: lot: [id number]: 09/25/15ite/route: L del/IMamt: 0.5mLVIS signed when applicableChelsea, [facility] Samia Dominguez MD ADMINISTRATION OF INFLUENZA VIRUS On: 10-Jan-2015 Intent VACCINE (G0008)By: Samia Dominguez MD, MD, Dana M CT - Abdomen & Pelvis (IV On: 08-Dec-2014 Intent Contrast Needed)By: Alberto HARRY, Comments: rule out hernia rule out ileocecal colitis Samia Sanchez MD Wax CurettesBy: Samia Dominguez MD On: 05-Jul-2014 Intent Samia Bond MD Ear Irrigation (09913)By: On: 05-Jul-2014 Intent Samia Dominguez MD, MD, Comments: Bilateral irrigationmoderate amount of light yellow wax removedtolerated well with no complaint of painwax curette GALINA oliva TDAP VACCINE >7 IM (06901)By: On: 02-Nov-2013 Intent Samia Dominguez MD, MD, Comments: Lot #:[id number] date:7-29-9379Jrdgjo given:1/2 cc Route:IM Site given:left deltoid Given by: mabel Villalba Eprescribed prescriptions On: 26-Jul-2013 Intent (G8553)By: Aparna Stinson CNP DXA, BONE DENSITY, AXIAL SKELETON On: 06-Jul-2013 Intent (88378)By: Samia Dominguez MD Comments: heel screen low Samia Dominguez MD Eprescribed prescriptions On: 06-Jul-2013 Intent (G8553)By: Samia Dominguez MD, MD, Dana M Eprescribed prescriptions On: 11-Mar-2013 Intent (G8553)By: Samia Dominguez MD, MD, Dana M [facility] On: 11-Mar-2013 Intent COUNSELING FOR OBESITY, 15 MINUTES (G0447)By: Samia Dominguez MD, MD, Dana M ADMINISTRATION OF INFLUENZA VIRUS On: 21-Jan-2012 Intent VACCINE (G0008)By: Olvin MOJICA, Comments: Lot #[id number]-L dltd, IMDose prefilled syringegiven by Rohan Hastings FLU VAC, SPLIT, >3 YEARS, On: 21-Jan-2012 Intent INTRAMUSC (66285)By: Nguyen Bah LPN CT - Abdomen & [...] SPLIT, >3 YEARS, On: 18-Feb-2011 Intent INTRAMUSC (22156)By: Luzmaria, Comments: Lot #:[id number] Expiration date: given:0.5mlRoute: IMSite given:left deltoid Given by: Senthil MEADOWS ADMINISTRATION OF INFLUENZA VIRUS On: 18-Feb-2011 Intent VACCINE (G0008)By: ABDIEL Dutta Ultrasound - post void bladder On: 06-Feb-2010 Intent residualBy: Samia Dominguez MD, MD, Dana M ADMINISTRATION OF INFLUENZA VIRUS On: 06-Feb-2010 Intent VACCINE (G0008)By: ABDIEL uDtta FLU VAC, SPLIT, >3 YEARS, On: 06-Feb-2010 Intent INTRAMUSC (47876)By: ABDIEL Dutta CT - Abdomen & Pelvis (IV On: 21-Nov-2009 Intent Contrast Needed)By: Milvia Lundberg DO DXA, BONE DENSITY, AXIAL SKELETON On: 07-Aug-2009 Intent (67055)By: Samia Dominguez MD, MD, Dana M ADMINISTRATION OF INFLUENZA VIRUS On: 31-Jan-2009 Intent VACCINE (G0008)By: Luzmaria, Comments: Lot #:[id number] date: given:0.5mlRoute: IMSite given:left deltoid Given by: Rabia MEADOWS FLU VAC, SPLIT, >3 YEARS, On: 31-Jan-2009 Intent INTRAMUSC (83645)By: ABDIEL Dutta Instructions Name Dates Details Vertigo [...] Advance Directives Name Dates Details Immunization Registry [place] - Effective on Effective: 06-Dec-201612/06/2016. Expiration date [...] The patient does have durable power of corporate associate attorney and living will. The patient has noticed getting bored, staying at home rather t morgan doing something new or going out and lack of energy. Other providers contributing to the patient's care are application integration engineer (Dr. Horvath) and other: ([facility]Encounter Diagnosis: BMI 32.0-32.9,adult, Current nonsmoker [...] The patient does have durable power of corporate associate attorney and living will. The patient has noticed staying at home rather than doi ng something new or going out and lack of energy. Other providers contributing to the patient's care are application integration engineer (Yuliet ), gastrologist (Lexi ) and other: [...] The patient does have durable power of corporate associate attorney and living will. The patien t has noticed dropping activities and interests, getting bored, feeling sad most of time, staying at home rather than doing something new or going out, having problems with memory than others and lack o f energy. Other providers contributing to the patient's care are application integration engineer (Dr Horvath) and electronics engineering professor (Dr Macdonald). Note for Annual Medicare Exam: [...] Urge Incontinence (788.31), V V790.00 (Renamed from [facility]) [facility] Office Visit On: [...] Nutrition: balanced diet and supplemental vitamins. The mt dical issues the patient is following up [...]
--- OUTSIDE RECORDS SUMMARY | 2018-05-06 00:03 | XMS RPT_ITS ---
:1935 Author Organization OHIP Support Name Relationship Address Phone R Unavailable Unavailable Unavailable SAURERS, ISAAC Unavailable [address] [place] [address] R Unavailable Unavailable Unavailable SAURERS, ISAAC Unavailable [address] + [address] [place] [address] R Unavailable Unavailable Unavailable SAURERS, ISAAC Unavailable [address] + [address] [place] [address] STEVEN ISAAC Unavailable [address] + [place] [address] STEVEN ISAAC Unavailable [address] + [place] [address] R Unavailable Unavailable Unavailable SAURERS, ISAAC Unavailable [address] + [address] [place] [address] R Unavailable Unavailable Unavailable SAURERS, ISAAC Unavailable [address] + [address] [place] [address] R Unavailable Unavailable Unavailable SAURERS, ISAAC Unavailable [address] + [address] [place] [address] R Unavailable Unavailable Unavailable SAURERS, ISAAC Unavailable [address] + [address] [place] [address] R Unavailable Unavailable Unavailable R Unavailable Unavailable Unavailable SAURERS, ISAAC Unavailable [address] + [address] [place] [address] XI TERESA Unavailable [address] + [place] [address] R Unavailable Unavailable Unavailable SAURERS, ISAAC Unavailable [address] + [address] [place] [address] XI TERESA Unavailable [address] + [place] [address] R Unavailable Unavailable Unavailable SAURERS, ISAAC Unavailable [address] + [address] [place] [address] R Unavailable Unavailable Unavailable SAURERS, ISAAC Unavailable [address] + [address] [place] [address] XI TERESA Unavailable [address] + [place] [address] R Unavailable Unavailable Unavailable SAURERS, ISAAC Unavailable [address] + [address] [place] [address] SAURERS, ISAAC Unavailable Unavailable + SAURERS, ISAAC Unavailable Unavailable + XI TERESA Unavailable [address] + [place] [address] R Unavailable Unavailable Unavailable SAURERS, ISAAC Unavailable [address] [place] [address] Care Team Providers Name Role Phone Pavel Strauss Attending Unavailable Bonezzi, Samia Primary Care Unavailable Bonezzi, Samia Attending Unavailable Bonezzi, Samia Referring Unavailable Bonezzi, Samia Primary Care Unavailable Bonezzi, Smaia Attending Unavailable Bonezzi, Samia Referring Unavailable Bonezzi, Samia Primary Care Unavailable Fast, Herlinda Attending Unavailable Fast, Herlinda Referring Unavailable Bonezzi, Samia Primary Care Unavailable Edelmira Zayas Attending Unavailable Bonezzi, Samia Referring Unavailable Bonezzi, Samia Primary Care Unavailable FabioabrettaMehdi Attending Unavailable Bonezzi, Samia Referring Unavailable Bonezzi, Samia Primary Care Unavailable Tacho Rolle Attending Unavailable Nay Quesada PA-C Attending Unavailable Bonezzi, Samia Referring Unavailable Bonezzi, Samia Primary Care Unavailable Mehdi Foote Attending Unavailable Calabretta, Mehdi Referring Unavailable Bonezzi, Samia Primary Care Unavailable Mehdi Foote Attending Unavailable RONY OLIVA Attending Unavailable Bonezzi, Samia Primary Care Unavailable RONY OLIVA Consulting Unavailable RONY OLIVA Referring Unavailable PhillipAnmol Attending Unavailable Boneserena, Samia Primary Care Unavailable Samia Dominguez Attending Unavailable Samia Dominguez Referring Unavailable Alberto, Samia Primary Care Unavailable Kandy, Dr. Charly Riojas Attending Unavailable *SELF, REFERRED Referring Unavailable Samia Dominguez Primary Care Unavailable Samia Dominguez MD Attending Unavailable Samia Dominguez MD Referring Unavailable Samia Dominguez MD Consulting Unavailable Geremias Mei Attending Unavailable Samia Dominguez. Primary Care Unavailable WakeGeremias Attending Unavailable PROBLEMS PROBLEMS DATE TYPE CONDITION / CODE ATTENDING STATUS SOURCE 03/11/2018 Unknown M50.30 - Other RONY OLIVA Active [place] cervical disc Community degeneration, Hospital unspecified cervical Repository region / M50.30(ICD-10) 02/04/2018 Admitting Unknown / Geremias Mei Active [facility] Medical diagnosis UNK(Unknown) [facility] [place] Repository 02/11/2018 Unknown Z12.11 - [facility] [place] for screening for [facility] malignant neoplasm [facility] of colon / Repository Z12.11(ICD-10) 03/03/2018 Unknown Z86.010 - Personal [facility], Active [place] history of colonic [facility] polyps / Hospital Z86.010(ICD-10) Repository 03/03/2018 Unknown K57.30 - [facility], Active [place] Diverticulosis of [facility] large intestine Hospital without perforation Repository or abscess without bleeding / K57.30(ICD-10) 11/05/2017 Unknown A04.72 - [facility], Active [place] Enterocolitis due to [facility] Clostridium Hospital difficile, not Repository specified as recurrent / A04.72(ICD-10) 10/21/2017 Unknown K57.92 - Herlinda Joseph Active [place] Diverticulitis of Community intestine, part Hospital unspecified, without Repository perforation or abscess without bleeding / K57.92(ICD-10) 07/29/2017 Unknown R10.9 - Unspecified Samia Dominguez Active [place] abdominal pain / Community R10.9(ICD-10) Hospital Repository 05/15/2017 Unknown M75.42 - Impingement Pavel Strauss Active [place] syndrome of left Community shoulder / Hospital M75.42(ICD-10) Repository PROCEDURES PROCEDURES No Procedure Records FoundRESULTS RESULTS CAROTID DUPLEX Observed: 03/25/2018 Status: F Source: [place] ULTRASOUND 11:37 AM [facility] REPOSITORY [facility] Cardiovascular [place] [address] Carotid Duplex Ultrasound 03/24/18 1002 MR#: [id number] Acct: [id number] Name: MOISES AHUJA Rep #: [id number] : 1935 83 From: John Owens MD Attending Dr: Samia Dominguez MD Status: REG CLI Ordering Dr: aSmia Dominguez MD Date: 03/24/18 Location: [facility] Sex: M C Admitted: Reason For Study: carotid stenosis Rt. Velocities/BP Lt. Velocities/BP Prox CCA 119.0/14.9 cm/sec. Prox CCA 116.0/15.8 cm/sec. Mid CCA 120.0/19.6 cm/sec. Mid CCA 113.0/14.7 cm/sec. Dist CCA 86.4/18.1 cm/sec. Dist CCA 117.0/16.4 cm/sec. Prox ICA 61.6/15.2 cm/sec. Prox ICA 80.3/14.1 cm/sec. Mid ICA 149.0/34.4 cm/sec. Mid ICA 137.0/27.5 cm/sec. Dist ICA 152.0/35.4 cm/sec. Dist ICA 86.2/22.3 cm/sec. Rt. ICA/CCA = 152.0/120.0=1.3. Lt. ICA/CCA = 137.0/113.0=1.2. Prox [...] right vertebral artery. Left Extracranial There is homogeneous, smooth atherosclerotic plaque noted in the left common carotid artery. There is heterogeneous, irregular atherosclerotic plaque noted in the left internal carotid artery. The tortuous nature of the left [...] Physician: Samia Dominguez Performed By: Simran Perales, RALPH, RVT 03/25/18 1136 Date John Owens MD CC: Samia Dominguez MD Date Dictated: 03/24/18 1002 Date Transcribed: 03/25/18 113 Digital Learning Platforms Manager: Signed INJ/ASP REZA JT Observed: 03/11/2018 Status: F Source: [place] SHOULD/HIP/KNEE 8:47 AM [facility] REPOSITORY [facility] Imaging Services [address] [place] [address] Inj/Asp Reza Jt Should/Hip/Knee MR#: [id number] Acct: [id number] Name: MOISES AHUJA Rep #: [id number] : 1935 M 83 From: Abdoulaye Garcia MD PCP: Samia Dominguez MD Status: REG CLI Study: Inj/Asp Reza Jt Should/Hip/Knee Date of Exam: 03/11/18 Exam# [id number] Ordering Dr: Anmol Fisher MD PROCEDURE: Fluoroscopic guided shoulder Injection DATE: March 11, 2018. INDICATION: Male, 83 years old. Chronic left shoulder pain. PHYSICIAN: Abdoulaye Garcia M.D. MEDICATIONS: 12 mg of betamethasone and 4 cc of 1% lidocaine. 2% Lidocaine administered subcutaneously for local anesthesia. ACCESS SITE: Left shoulder. NEEDLE: 22-gauge spinal needle. FLUOROSCOPY TIME (if supplied): (0:47) minutes/seconds FINDINGS: The risks, benefits, and alternatives to the procedure were explained to the patient. The specific risks of bleeding, infection, and neurovascular injury were detailed and accepted. Witnessed informed consent was obtained. A 22-gauge spinal needle was positioned under radiographic fluoroscopic localization. Approximately 2 cc of Isovue-300 instilled for localization purposes. Medication was then injected. The patient tolerated the procedure well without any immediate complications. The patient was placed supine with head elevated and returned to the floor in stable condition. RAD/Inj/Asp Reza Jt Should/Hip/Knee IMPRESSION: 1. Successful fluoroscopic guided left shoulder injection. Electronically Signed: Abdoulaye Garcia MD at 9:42 EST Tel [phone], Service support , CC: Samia Dominguez MD; Anmol Fisher MD Digital Learning Platforms Manager: Signed PT D/C SUMMARY (1) Observed: 03/05/2018 Status: F Source: [place] 9:11 AM [facility] REPOSITORY [facility] [address] [place] [address]. [address] [place] [address] Fax REHABILITATION SERVICES DISCHARGE SUMMARY MR#: [id number] Acct: [id number] Name: MIKELuisanaMOISES Rep #: [id number] : 1935 83 From: Ashok MATAT, OCS, CSCS Referring : Status: REG RCR Insurance: MEDICARE PART A B ANTHEM HP - PT D/C Summary It has been my pleasure to treat MOISES AHUJA under orders from CORTES MEI, for the diagnosis of c/s radiculopathy for a total of 5 visit(s). Discharge Date: 03/03/18 Please see the following information for a summary of their discharge status. - Subjective Subjective: L trap still sore but much better overall. Remains 2/10 at most times. Head is moving better. Arm symptoms mostly sharp with position change and then gone. Will see dr. Fisher on for neck and shoulder pain. - Pain neck Pain Intensity (Out of 10): 2 L UE Pain Intensity (Out of 10): Unrated - Overall Improvement % Improvement: 40 - [...] 90% better adn 1/10 at worse. Goal Progress: Progressing [...] please feel free to call me at [phone]. Thank you for the referral of this patient. Sincerely, Ashok Nolasco, EZE, OC <Electronically signed by Ashok Nolasco DPT, OCS, CSCS> 03/05/18 0911 CC: Samia Dominguez MD; OUT OF TOWN DOCTOR EBG Signed INITAL EVALUATION (1) Observed: 02/18/2018 Status: F Source: [place] - PT 7:10 AM [facility] REPOSITORY [facility] [address] [place] [address] Fax REHABILITATION SERVICES INITIAL EVALUATION MR#: [id number] Acct: [id number] Name: MOISES AHUJA Rep #: [id number] : 1935 82 From: Ashok MATAT, OCS, CSCS Referring Dr.: OUT OF TOWN DOCTOR Status: REG RCR Insurance: MEDICARE PART A B ANTH Patient's Visit Information MOISES AHUJA is a 82 year old M referred to Physical Therapy by CORTES MEI with a diagnosis of c/s radiculopathy. Date of Evaluation: 02/17/18 Physical Therapist: Ashok Nolasco DPT, OC - Visit Plan Frequency: 2x /Week Duration: 2 Weeks Plan: 2x/week for two weeks per script for... 1. c/s retraction and postural exercises, progressing HEP. 2. STM to B UT,s tretch pecs. 3. Manual traction to tolerance. Monitor L tri adn bi weakness. - Subjective Subjective: Stenosis in back and neck. Has given him pain in center of base of neck. Sometimes radiates into L arm to elbow. this is insidious and lasts 30 seconds. Got it this morning putting tea kettle on stove. Neck hurts much of day 2-3/10. Goes up to 8/10 shooting pain with turning wrong. this has been going on for 6 months insidiously. [...] and turning head hurts but he can do it. - Pain neck Pain Intensity (Out of 10): 2 Pain Intensity Range: 2, 8 L UE Pain Intensity (Out of 10): 0 Pain Intensity Range: 0, 8 - Objective Sits with forward head and tight scap with tension. Scapula are protracted. UE AROM WFL to 130 elevation, ext rotation 60a nd IR full adn without pain, elevation hurts slightly L c/s. reflexes 2/3 bi and tri. Sensation WNL in UE to gross light touch. Strenght is at deficiti in L wrist flex and ext adn bi and tri 4-, others 4/5 in shoulder. + c/s compression test B. - HK and - neer. repeated protrusion increases L UE numbness adn worse pain to 3/10. repeated retraction NE. Trasnfers adn gait are normal and safe. Tender to palpation base of c/s in Upper traps B max. - Goals Goal 1:: Pain with ADLs is 90% better adn 1/10 at worse. Goal Time Frame: 2-4 Weeks Goal 2:: Patient I in appropriate posture and HEP to minimize future problems. Goal Time Frame: 2-4 Weeks - Rehabilitation Potential Physical Therapy Diagnosis: cervical stenosis adn radiculapathy Rehabilitation Potential: Fair - Anticipated Interventions Patient/Client Instruction: Educate patient on: Condition, Plan of Care For the Purpose of:: To decrease pain Therapeutic Exercise to Include: Strength training, Flexibilty training, Scapular Strength/Stabilization For the Purpose of:: To decrease pain, To improve nutrient delivery to tissue, To increase tolerance to activity/condition/position Manual Therapy Techniques to Include: Soft tissue [...] to be FAXED BACK to us at [phone] for Medicare purposes. Please let me know if there are questions or concerns regarding this plan of care. Physician Signature: Date: <Electronically signed by Ashok Nolasco DPT, OCS, CSCS> 02/18/18 0710 CC: Samia Dominguez MD; OUT OF TOWN DOCTOR EBG Signed For Medicare only, by signing this I certify the plan of care. Physicians Signature Date MRI CERVICAL SP W/O Observed: 02/04/2018 Status: F Source: BERD CONTRAST 5:31 AM [facility] MRI CERVICAL SP W/O CONTRAST Ordering Physician: Geremias Mei MD 02/04/2018 7:30 AM MRI CERVICAL SPINE WITHOUT CONTRAST: Clinical Statement: Neck pain, radiculopathy Comparison: MRI cervical spine 12/06/2013. TECHNIQUE: Axial and sagittal T1 and T2 sequences were obtained through the cervical spine. FINDINGS: No compression fractures or malalignment. The bone marrow is age appropriate. The visualized portions of the cerebellum, mariah, brainstem, and spinal cord demonstrate normal signal and morphology. There is no mass in the spinal canal. At C2-C3 there is a small posterior central disk osteophyte. There is no spinal stenosis or neural foraminal narrowing facet arthropathy right greater than left are noted. At C3-C4 there is degenerative disk disease with endplate osteophytes and bilateral uncovertebral arthropathy. Ligamentum flavum hypertrophy is noted. There is mild spinal stenosis is bilateral neural foraminal narrowing and left facet arthropathy. At C4-C5, there is a disk osteophyte complex with left uncovertebral arthropathy and ligamentum flavum hypertrophy is noted. There is mild spinal stenosis and left neural foraminal narrowing with bilateral facet arthropathy. At C5-C6, there is a disk bulge with ligamentum flavum hypertrophy. This results in effacement of the anterior posterior CSF space and mild to moderate spinal stenosis. There is bilateral uncovertebral arthropathy resulting in bilateral neural foraminal narrowing. Left facet arthropathy is noted. At C6-C7, there is no spinal stenosis. There is mild bilateral uncovertebral arthropathy. No spinal stenosis. There is mild left neural foraminal narrowing and bilateral facet arthropathy At C7-T1, and throughout the upper thoracic spine, there is no spinal stenosis or neural foraminal narrowing IMPRESSION: There is mild to moderate spinal stenosis at C5-C6 and mild spinal stenosis at C3-C4 and C4-C5. Multilevel uncovertebral arthropathy and facet arthropathy. ---- Electronic Signature on File ---- Signed By: Zion Combs MD [email or web address] Dictated: 02/04/2018 1:02 PM Signed: 02/04/2018 1:25 PM Reported By: ZION COMBS M.D. Signed By: ZION COMBS M.D. OPERATIVE REPORT - Observed: 01/16/2018 Status: F Source: [place] ENDOSCOPY 10:50 AM [facility] REPOSITORY [facility] Medical Records Department [address] [place] [address] Operative Report - Endoscopy MR#: [id number] Acct: [id number] Name: MOISES AHUJA Rep #: [id number] : 1935 82 From: Mehdi Foote MD PCP: Samia Dominguez MD Status: [place] [facility] Patient Name: Moises Ahuja Procedure Date: 01/16/2018 10:15 AM Date of : 1935 Age: 82 Procedure: Colonoscopy Indications: Surveillance: Personal history of adenomatous polyps on last colonoscopy > 3 years ago, Incidental - Recurrent Clostridium difficile colitis, Incidental - Follow-up of diverticulitis Providers: Mehdi Foote MD Referring MD: Samia Dominguez Medicines: Monitored Anesthesia Care Patient Profile: Last Colonoscopy: more than 3 years ago. Complications: No immediate complications. Procedure: Pre-Anesthesia Assessment: - Prior to the procedure, a History and Physical was performed, and patient medications and allergies were reviewed. The patient's tolerance of previous anesthesia was also reviewed. The risks and benefits of the procedure and the sedation options and risks were discussed with the patient. All questions were answered, and informed consent was obtained. [...] 0 hours 6 minutes 59 seconds Scope Out: 10:41:16 AM Total Procedure Duration Time 0 hours 14 minutes 8 seconds Findings: Multiple small and large-mouthed diverticula were found in the sigmoid colon and descending colon. No additional abnormalities were found on retroflexion. Impression: - Diverticulosis in the sigmoid colon and in the descending colon. - No specimens collected. Recommendation: - Discharge patient to home. - Resume previous diet. - Continue present medications. - Resume aspirin at prior dose tomorrow. - No recommendation at this time regarding repeat colonoscopy due to age. Procedure Code(s): --- Professional --- 71677, PT, Colonoscopy, flexible; diagnostic, including collection of specimen(s) by brushing or washing, when performed (separate procedure) Diagnosis Code(s): --- Professional --- Z86.010, Personal history of colonic polyps K57.30, Diverticulosis of large intestine without perforation or abscess without bleeding CPT copyright 2017 [employer]. All rights reserved. The codes documented in this report are preliminary and upon film flat inspector review may be revised to meet current compliance requirements. Mehdi Foote MD 01/16/2018 10:49:47 AM This report has been signed electronically. Number of Addenda: 0 Note Initiated On: 01/16/2018 10:15 AM 01/16/18 1049 Date Mehdi Foote MD Cosigner Signature: Date (if indicated) CC: Mehdi Foote MD; Samia Dominguez MD Date Dictated: 01/16/18 1015 Date Transcribed: Digital Learning Platforms Manager: SCOT Signed SURGERY VISIT REPORT Observed: 12/30/2017 Status: F Source: [place] 10:43 AM [facility] REPOSITORY [facility] [facility] [address] [place] [address] [address] [place] [address] OFFICE VISIT Date of Service: 12/30/17 MR#: [id number] Acct: [id number] Name: MOISES AHUJA Rep #: [id number] : 1935 Provider: Nay Quesada PA-C Age/Sex: 82/M Location: [facility] Status: Signed Intake Vital Signs12/30/17 Height 5 ft 7 in 12/30/17 Weight: 195 lb Intake Visit Reasons: UPDATE H AND P Franchise Manager Required: No Is patient in pain?: No Allergies Penicillins Allergy (Verified 12/30/17 10:16) Swelling acetaminophen [From Vicodin] Adverse Reaction (Verified 12/30/17 10:16) Other gabapentin Adverse Reaction (Verified 12/30/17 10:16) Other hydrocodone bitartrate [From Vicodin] Adverse Reaction (Verified 12/30/17 10:16) Other ketoconazole Adverse Reaction (Verified 12/30/17 10:16) Nausea levofloxacin [From Levaquin] Adverse Reaction (Verified 12/30/17 10:16) Other prednisone Adverse Reaction (Verified 12/30/17 10:16) Other MYKEL Adverse Reaction (Uncoded 12/30/17 10:16) Other VICODIN Adverse Reaction (Uncoded 12/30/17 10:16) Other Medications Aspirin [Aspirin, Baby] 81 mg PO DAILY@0800 01/31/13 [History Confirmed 12/30/17] Escitalopram Oxalate [Lexapro] 10 mg PO QHS 01/31/13 [History Confirmed 12/30/17] Omeprazole [Prilosec] 20 mg PO DAILY 01/31/13 [History Confirmed 12/30/17] Metoprolol(XL)Succ [Toprol Xl (Beta Rena)] 50 mg PO QHS 11/20/13 [History Confirmed 12/30/17] Primidone [Mysoline] 12.5 mg PO DAILY 11/20/13 [History Confirmed 12/30/17] meloxicam 7.5 mg tablet 7.5 mg PO QDAY 10/22/17 [History Confirmed 12/30/17] pravastatin 40 mg tablet 40 mg PO QDAY 10/22/17 [History Confirmed 12/30/17] PFS Medical History Nonrheumatic mitral valve prolapse (Chronic) Accelerated essential hypertension (Acute) Hyperlipidemia (Chronic) Hypertension (Chronic) [...] resolved. He notes solid bowel movements. He denies abdominal pain/discomfort, constipation, diarrhea, melena, bright red blood. He notes a brother who with colon cancer at age 64. He had a colonoscopy approximately 5 years ago. He notes a 6 pound intentional weight loss. He notes a cardiac history of mitral valve prolapse. His upholsterer helper is Dr. Avina. Patient's previous history per Dr. Foote: MOISES [...] Hematologic: Yes blood thinners Exam Const General: cooperative, healthy appearing, comfortable, no acute distress [facility] Head: normal to inspection Eyes General: appearance [...] Extrem General: normal to inspection Psych Appearance: grossly normal Affect: normal affect Assessment AND Plan [...] Diagnoses Family history of colon cancer Z80.0 Comment Update H AND P 12/30/17 1043 <Electronically signed by Nay Quesada PA-C> Date Nay Quesada PA-C Cosigner Signature: Date (if applicable) CC: SURGERY VISIT REPORT Observed: 11/05/2017 Status: F Source: [place] 10:50 AM [facility] REPOSITORY [facility] [address] [place] [address] OFFICE VISIT Date of Service: 11/05/17 MR#: [id number] Acct: [id number] Name: MOISES AHUJA Rep #: [id number] : 1935 Provider: Mehdi Foote MD Age/Sex: 82/M Location: [facility] Status: Signed Intake Vital Signs11/05/17 Height 5 ft 7 in 11/05/17 Weight: 201 lb 11/05/17 Body Mass Index (BMI) 31.4 Intake Visit Reasons: C-Scope Screening Franchise Manager Required: No Is patient in pain?: No Allergies Penicillins Allergy (Verified 11/05/17 10:28) Swelling acetaminophen [From Vicodin] Adverse Reaction (Verified 11/05/17 10:28) Other gabapentin Adverse Reaction (Verified 11/05/17 10:28) Other hydrocodone bitartrate [From Vicodin] Adverse Reaction (Verified 11/05/17 10:28) Other ketoconazole Adverse Reaction (Verified 11/05/17 10:28) Nausea levofloxacin [From Levaquin] Adverse Reaction (Verified 11/05/17 10:28) Other prednisone Adverse Reaction (Verified 11/05/17 10:28) Other MYKEL Adverse Reaction (Uncoded 04/20/15 22:47) Other VICODIN Adverse Reaction (Uncoded 04/20/15 22:47) Other Medications Aspirin [Aspirin, Baby] 81 mg PO DAILY@0800 01/31/13 [History Confirmed 11/05/17] Escitalopram Oxalate [Lexapro] 10 mg PO QHS 01/31/13 [History Confirmed 11/05/17] Omeprazole [Prilosec] 20 mg PO DAILY 01/31/13 [History Confirmed 11/05/17] Metoprolol(XL)Succ [Toprol Xl (Beta Rena)] 50 mg PO QHS 11/20/13 [History Confirmed 11/05/17] Primidone [Mysoline] 12.5 mg PO DAILY 11/20/13 [History Confirmed 11/05/17] meloxicam 7.5 mg tablet 7.5 mg PO QDAY 10/22/17 [History Confirmed 11/05/17] pravastatin 40 mg tablet 40 mg PO QDAY 10/22/17 [History Confirmed 11/05/17] [facility] Medical History Nonrheumatic mitral valve prolapse (Chronic) Accelerated essential hypertension (Acute) Hyperlipidemia (Chronic) Hypertension (Chronic) [...] cooperative Orientation: alert, awake, oriented x3 Resp Auscultation: clear to auscultation bilaterally Cardio Rate: regular rate Rhythm: regular rhythm Heart Sounds: no murmurs GI Inspection: non-distended Palpation: soft, nontender Assessment AND Plan Problems 1. History of adenomatous polyp of colon Z86.010 2. Colitis K52.9 Plan 1. Patient is currently recovering from C. difficile colitis. He may have also had recent bouts of diverticulitis. The patient had a colonoscopy in 2013 and had an adenomatous polyp and was recommended to follow-up for repeat colonoscopy in 3-5 years. 2. I explained endoscopy in detail to the patient. I explained the risks including but not limited to stroke or heart attack with anesthesia, perforation of the GI tract, bleeding, infection. I explained that any of these could necessitate further emergency surgery. The patient understands and all questions were answered sufficiently. The patient wishes to proceed with procedure. 3. I have asked the patient to hold his aspirin 5 days before the procedure. 4. As the patient is currently recovering from active colitis I will plan for colonoscopy in December. Mehdi Foote MD Pager: [facility] [address] [place] [address] [address] [place] [address] Office: Orders Orders: Coding Level of Care Code Off vis,new,level 3 Diagnoses History of adenomatous polyp of colon Z86.010 Colitis K52.9 11/05/17 1050 <Electronically signed by Mehdi Foote MD> Date Mehdi Foote MD Cosigner Signature: Date (if applicable) CC: Samia Dominguez MD CARDIOLOGY VISIT Observed: 10/24/2017 Status: F Source: [place] REPORT 4:13 PM [facility] REPOSITORY [facility] [address] [place], [place] [id number] OFFICE VISIT Date of Service: 10/22/17 MR#: [id number] Acct: [id number] Name: MOISES AHUJA Sal Rep #: [id number] : 1935 Provider: Edelmira Zayas Age/Sex: 82/M Location: [facility] Status: Signed HPI HPI Details: MOISES AHUJA, is a 82 M who presents to the office today for a cardiovascular follow-up. He has a history of hypertension, hyperlipidemia and mitral valve prolapse. Pt has been having issues with lightheadedness. This has since resolved. PCP had obtained a stress/echo and carotid. He has been having issues with his abdomen. He did see his PCP for this, he was started on antibiotics. He does not have any chest discomfort/heaviness/tightness. His exercise tolerance is stable for his age. He does not have any worsening symptoms of shortness of breath. He denies any PND. He does not have any orthopnea. He does not have any symptoms of congestive heart failure. He does not have any palpitations that he is aware of. He does not have any lightheadedness or dizziness. He does not have any near-syncope or syncope. He does not have any lower extremity edema. He does not have any symptoms of claudication. 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 Required: No Accompanied by: Allergies Penicillins Allergy (Verified 10/22/17 09:45) Swelling acetaminophen [From Vicodin] Adverse Reaction (Verified 10/22/17 09:45) Other gabapentin Adverse Reaction (Verified 10/22/17 09:45) Other hydrocodone bitartrate [From Vicodin] Adverse Reaction (Verified 10/22/17 09:45) Other ketoconazole Adverse Reaction (Verified 10/22/17 09:45) Nausea levofloxacin [From Levaquin] Adverse Reaction (Verified 10/22/17 09:45) Other prednisone Adverse Reaction (Verified 10/22/17 09:45) Other MYKEL Adverse Reaction (Uncoded 04/20/15 22:47) Other VICODIN Adverse Reaction (Uncoded 04/20/15 22:47) Other Medications Aspirin [Aspirin, Baby] 81 mg PO DAILY@0800 01/31/13 [History Confirmed 10/22/17] Escitalopram Oxalate [Lexapro] 10 mg PO QHS 01/31/13 [History Confirmed 10/22/17] Omeprazole [Prilosec] 20 mg PO DAILY 01/31/13 [History Confirmed 10/22/17] Metoprolol(XL)Succ [Toprol Xl (Beta Rena)] 50 mg PO QHS 11/20/13 [History Confirmed 10/22/17] Primidone [Mysoline] 12.5 mg PO DAILY 11/20/13 [History Confirmed 10/22/17] meloxicam 7.5 mg tablet 7.5 mg PO QDAY 10/22/17 [History Confirmed 10/22/17] pravastatin 40 mg tablet 40 mg PO QDAY 10/22/17 [History Confirmed 10/22/17] Ejection fraction %: 55 to 59 PFSH Medical History Nonrheumatic mitral valve prolapse (Chronic) Accelerated essential hypertension (Acute) Hyperlipidemia (Chronic) Hypertension (Chronic) [...] of vision ENT ENT: Negative for headache(s), dizziness, tinnitus or Nosebleed/epistaxis Cardio Chest Pain: No Palpitations: No Edema: None Muscle aches with walking: None Resp Respiratory: Negative for SOB with activity, SOB at rest, SOB orthopnea\SOB lying down or Cough GI GI: Negative nausea, vomiting, heartburn or vomiting blood/hematemesis : Negative for hematuria Musc Musc: Negative for muscle aches/ myalgia Neuro Neuro: Negative for weakness, headache(s), dizziness, near syncope, syncope, lightheadedness or orthostatic symptoms Giovani Hematologic/Lymphatic: Negative for easy bleeding Endo Endo: Negative for fatigue Cardiology Exam Const Appearance: cooperative, no acute distress and well developed Orientation: alert, awake and oriented x3 Head Head: normocephalic and atraumatic Mouth: moist mucous membranes Eyes General: appearance normal, both eyes and all related structures Conjunctivae: [...] no hepatosplenomegaly and bowel sounds present; negative tender Neuro General: alert, awake, oriented x3, CN's II-XI intact bilaterally and moves all extremities Extremities Pulses: Normal: Right Posterior Tibial Pulse, Left Posterior Tibial Pulse, Right Radial Pulse, Left Radial Pulse Lower Extremity Edema: None: Bilateral Psych Psychological: normal affect Supplemental Info Stress test in 2018 demonstrated no evidence of ischemia at a high workload. Echocardiogram in 2018 demonstrated Left ventricular systolic function is normal. The estimated ejection fraction is 55 %. Trivial mitral valve insufficiency. Trivial tricuspid valve insufficiency. Mild (1+) pulmonic valve insufficiency. There is evidence of diastolic dysfunction. Carotid ultrasound in 2017 demonstrated moderate disease on the right mild on the left. Assessment AND Plan 1. Essential hypertension I10 Plan - HUANG Valenzuela Blood pressure is well controlled on current medications, we do not recommend any changes at this time. 2. Pure hypercholesterolemia E78.00; E78.0 Plan - HUANG Valenzuela Managed by primary care doctor. Have asked for copy of labs for continuity of care. 3. Nonrheumatic mitral valve prolapse I34.1 Plan - HUANG Valenzuela Stable, will continue to monitor by history, exam and echocardiograms as deemed appropriate. Plan Detail Other Medications Discontinued: Additional Comments - HUANG Valenzuela The above patient was discussed with Dr. Avina, he agrees with plan of care. Thank [...] prior to saving. 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) Coding Level of Care Code Off vis,est,level 3 Diagnoses Essential hypertension I10 Hypertension type: essential hypertension Pure hypercholesterolemia E78.00; E78.0 Hyperlipidemia type: pure hypercholesterolemia Nonrheumatic mitral valve prolapse I34.1 Coding Level of Care Code Off vis,est,level 3 Diagnoses Essential hypertension I10 Hypertension type: essential hypertension Pure hypercholesterolemia E78.00; E78.0 Hyperlipidemia type: pure hypercholesterolemia Nonrheumatic mitral valve prolapse I34.1 10/22/17 1122 <Electronically signed by Edelmira Zayas PA> Date Edelmira ENCINAS 10/24/17 1613<Electronically signed by Horacio Avina MD> Cosigner Signature: Date (if applicable) Horacio Avina MD CC: Samia Dominguez MD CBC W/DIFF, AUTOMATED Collected: 10/21/2017 Status: F Source: [place] 11:03 AM [facility] REPOSITORY Order Comment: Order Date: 10/21/17 Order Info: [id number] - CBCD Comments: stat Order Info: [id number] - SED TYPE CODE TESTS RESULT OUT OF RANGE REFERENCE UNITS LAB L100.1000 4.4-11.0 K/mm3 Normal WBC 5.0 LAB L100.1200 4.6-6.2 M/mm3 Low RBC 4.55 LAB L100.1300 13.0-16.5 g/dl Normal HGB 13.3 LAB L100.1400 40-54 % Normal HCT 40.6 LAB L100.1500 80-94 fL Normal MCV 89.2 LAB L100.1600 27.0-32.0 pg Normal MCH 29.2 LAB L100.1700 32-36 g/gl Normal MCHC 32.8 LAB L100.1810 11.6-14.6 % Normal RDW CV 13.4 LAB L100.1820 35.1-43.9 fl Normal RDW SD 43.8 LAB L100.1900 150-450 K/mm3 Normal PLT 162 LAB L100.2000 6.2-12.0 fl Normal MPV 9.8 LAB L100.2100 47-70 % Normal NEUT% 62.8 LAB L100.2200 19-41 % Normal LY% 24.1 LAB L100.2300 0-10 % High MONO% 10.1 LAB L100.2400 0-5 % Normal EO% 2.6 LAB L100.2500 0-1 % Normal BASO% 0.2 LAB L100.2550 0.0-0.9 % Normal IM GRAN % 0.200 Result Comment: IG% - Immature Granulocytes (promyelocytes, myelocytes and metamyelocytes) > 1% indicates that a LEFT SHIFT is Present. LAB L100.2620 2.0-7.7 X10 3/uL Normal Absolute Neut 3.1 LAB L100.2720 0.83-4.51 X10 3/ul Normal Absolute Lymph 1.20 Performed By: #### L100.0100, L101.9900, L500.4050, L501.6710 #### [facility] [address] [place], [place], [address] ERYTHROCYTE SED RATE Collected: 10/21/2017 Status: F Source: [place] 11:03 [facility] REPOSITORY Order Comment: Order Date: 10/21/17 Order Info: [id number] - CBCD Comments: stat Order Info: [id number] - SED TYPE CODE TESTS RESULT OUT OF RANGE REFERENCE UNITS LAB L102.0000 0-20 mm/hr Normal SED RATE 8 Performed By: #### L100.0100, L101.9900, L500.4050, L501.6710 #### [facility] [address] [place], [address] COMPREHENSIVE METABOLIC Collected: 10/21/2017 Status: F Source: [place] [facility] 11:03 [facility] REPOSITORY Order Comment: Order Date: 10/21/17 Order Info: [id number] - CMP Order Info: [id number] - CRP Comments: stat Comments: stat TYPE CODE TESTS RESULT OUT OF RANGE REFERENCE UNITS LAB L501.0100 74-106 mg/dL Normal GLU 78 Result Comment: Please note revised GLUCOSE reference range effective 2017. LAB L501.1000 7-18 mg/dL Normal BUN 16 LAB L501.1100 0.70-1.30 mg/dL Normal CREAT,SERUM 1.01 Result Comment: The validity of the calculated GFR AND GFRAA in patients over 70 years has not been determined. Clinical correlation is essential. LAB L501.1110 >60 mL/min Normal EST GFR 75 Result Comment: Non- GFR Calc LAB L501.1115 >60 mL/min Normal EST GFR - AA 91 Result Comment: GFR Calc LAB L501.1300 10-20 RATIO Normal BUN/CRE 15.8 LAB L501.1500 6.4-8.2 g/dL T Normal PROT 7.3 LAB L501.1800 3.2-5.0 g/dL Normal ALB 3.5 LAB L501.1950 2.2-4.2 g/dL Normal GLOB 3.8 LAB L501.2000 0.9-2.4 RATIO Normal A/G 0.9 LAB L501.2200 8.5-10.1 mg/dL CA Normal 8.7 LAB L501.4100 15-37 U/L Normal AST 21 LAB L501.4305 45-117 U/L Normal ALK P 59 LAB L501.4405 16-61 U/L Normal ALT 30 LAB L501.4600 0.20-1.00 mg/dL T Normal BILI 0.70 LAB L501.5300 136-145 mmol/L NA Normal 144 LAB L501.5600 3.5-5.1 mmol/L K Normal 3.7 LAB L501.5900 98-107 mmol/L CL Normal 105 LAB L501.6100 21.0-32.0 mmol/L Normal CO2 30.0 LAB L501.6200 5-15 Normal GAP 9 Performed By: #### L100.0100, L101.9900, L500.4050, L501.6710 #### [facility] [address] [place], [address] CRP Collected: 10/21/2017 Status: F Source: [place] 11:03 AM [facility] REPOSITORY Order Comment: Order Date: 10/21/17 Order Info: [id number] - CMP Order Info: [id number] - CRP Comments: stat Comments: stat TYPE CODE TESTS RESULT OUT OF RANGE REFERENCE UNITS LAB L501.6710 0.0-3.0 mg/L High 30.20 C-REACTIVE PROT Result Comment: C-Reactive Protein (CRP) provides useful information for the diagnosis, therapy and monitoring of inflammatory processes and associated diseases. For the evaluation of Relative Risk for Cardiovascular Disease, a High Sensitivity CRP (HSCRP) should be ordered. Performed By: #### L100.0100, L101.9900, L500.4050, L501.6710 #### [facility] [address] [facility] [place], [address] STRESS REPORT Observed: 10/07/2017 Status: F Source: [place] 5:02 PM [facility] REPOSITORY [facility] Cardiovascular Services [address] [place] [address] MR#: [id number] Acct: [id number] Name: MOISES AHUJA Rep #: [id number] : 1935 82 From: Tacho Rolle MD Primary Care: Samia Dominguez MD Status: REG CLI Ordering Dr: Willy: Deejay Huang Stress Test Report Date: 04/16/2018 Procedure: Exercise tolerance test/imaging study Indications: Lightheadedness; CAD; PCI Consent: Per the patient Procedure: The patient exercised on a Raymond protocol for 6 minutes and 30 seconds completing Stage II and 30 seconds of Stage III achieving a peak heart rate of 122 bpm (88 % predicted maximal heart rate) with a peak blood pressure 166/72 mmHg and a peak MET capacity of 7 METs. The baseline ECG demonstrated normal sinus rhythm. The peak exercise ECG demonstrated somatic/motion artifact with no obvious ECG changes. There were no cardiac dysrhythmias pretest, during exercise, or recovery. The functional capacity was considered good. There was no complaint of chest discomfort during exercise or recovery. The examination was discontinued secondary to dyspnea. Impression: 1. Technically adequate (percent predicted maximal heart rate greater than 85%) exercise tolerance test 2. Peak exercise ECG demonstrated somatic/motion artifact with no obvious ECG changes 3. There were no cardiac dysrhythmias pretest, during exercise, or recovery. 4. Nuclear images pending Myocardial perfusion imaging study: Technique: The patient was injected with 14.1 mCi of technetium 99m Cardiolite and subsequently rest SPECT Cardiolite nuclear imaging was obtained in the horizontal long, vertical long, and short axis views. The patient exercised on a Raymond protocol for 6 minutes and 30 seconds completing Stage II and 30 seconds of Stage III achieving a peak heart rate of 122 bpm (88 % [...] of relative uniform tracer uptake and myocardial perfusion appearing within normal limits. There is end systolic thickening and brightening. The gated Cardiolite study demonstrates myocardial thickening and inward wall motion. The reported LVEF is 70 %. Impression: 1. Rest and stress SPECT Cardiolite nuclear imaging demonstrate relative uniform tracer uptake and myocardial perfusion appearing within normal limits. 2. The gated Cardiolite study reports an LVEF of 70 %. This note was generated with EcoStartation software. It may contain incorrect words, spelling, and punctuation that were not noted in checking the note before signing. 10/07/17 1702 <Electronically signed by Tacho Rolle MD> Date Tacho Rolle MD CC: Samia Dominguez MD Date Dictated: 10/07/171655 Date Transcribed: 10/07/171655 Digital Learning Platforms Manager: PM Signed ECHOCARDIOGRAM COMPLETE Observed: 10/07/2017 Status: F Source: [place] 3:06 PM [facility] REPOSITORY [facility] Cardiovascular [place] [address] Echo Complete 10/07/17 0858 MR#: [id number] Acct: [id number] Name: MIKELuisanaMOISES C Rep #: [id number] : 1935 82 From: Tacho Rolle MD Attending Dr: Samia Dominguez MD Status: REG CLI Ordering Dr: Samia Dominguez MD Date: 10/07/17 Location: [facility] Sex: M C Admitted: Reason For Study: CAD Procedure This was a 2D Doppler, Color Flow transthoracic echocardiogram. The exam was of adequate technical quality. Exam performed in department. Left Ventricle Normal left ventricle. Left ventricular systolic function is normal. The [...] valve. Pulmonic Valve The pulmonic valve is not well visualized. Mild (1+) pulmonic valve insufficiency. Great Vessels Normal sized aortic root. Pericardium/Pleural No pericardial effusion. MMode/2D Measurements AND Calculations LVIDd: 4.7 cm IVSd: 1.1 cm Ao root diam: 3.4 cm [...] Physician: Samia Dominguez Performed By: Saida Denise [facility] 10/07/17 1505 Date Tacho Rolle MD CC: Samia Dominguez MD Date Dictated: 10/07/17 0858 Date Transcribed: 10/07/17 1505 Digital Learning Platforms Manager: Signed ABDOMEN SINGLE VIEW Observed: 07/29/2017 Status: F Source: [place] 12:32 PM [facility] REPOSITORY [facility] Imaging Services [address] [address] Abdomen Single View MR#: [id number] Acct: [id number] Name: MOISES AHUJA Rep #: [id number] : 1935 M 82 From: Abdoulaye Garcia MD PCP: Samia Dominguez MD Status: REG CLI Study: Abdomen Single View Date of Exam: 07/29/17 Exam# [id number] Ordering Dr: Samia Dominguez MD STUDY: X-RAY - ABDOMEN/PELVIS REASON FOR EXAM: Male, 82 years old. 2 month history of mid abdominal pain. TECHNIQUE: Two AP supine views of the abdomen and pelvis. COMPARISON: None. FINDINGS: Normal visualized lung bases. There is a moderate amount of colonic fecal material. The visualized liver, spleen and kidneys are grossly normal in size and morphology. Normal soft tissue structures. Normal visualized osseous structures. RAD/Abdomen Single View IMPRESSION: Moderate amount of fecal material is seen in the colon. Electronically Signed: Abdoulaye Garcia MD at 13:01 EDT Tel [phone], Service support , CC: Samia Dominguez MD Digital Learning Platforms Manager: Signed PT D/C SUMMARY (1) Observed: 05/12/2017 Status: F Source: [place] 10:02 AM [facility] REPOSITORY [facility] [place] [address] Fax REHABILITATION SERVICES DISCHARGE SUMMARY MR#: [id number] Acct: [id number] Name: MOISES AHUJA Rep #: [id number] : 1935 82 From: Hang Waller PT, ATC Referring Dr.: Pavel Strauss MD Status: REG RCR Insurance: MEDICARE PART A B ANTHEM HP - PT D/C Summary It has been my pleasure to treat MOISES AHUJA under orders from Pavel Strauss, for the diagnosis of L shoulder impingement syndrome for a total of 4 visit(s). Discharge Date: Please see the following information for [...] please feel free to call me at [phone]. Thank you for the referral of this patient. Sincerely, Hang Waller, PT, <Electronically signed by Hang Waller PT, ATC> 05/12/17 1002 CC: Samia Dominguez MD; Pavel Strauss MD [facility] Signed ALLERGIES ALLERGIES DATE TYPE / CODE NAME / CODE REACTION SEVERITY SOURCE 01/12/2018 Drug hydrocodone Other Unknown [place] Allergy/925627954( bitartrate/F0000 [facility] SNOMED CT) 20836(RXNORM) Hospital Repository 01/12/2018 Drug Penicillins/F001 Swelling Unknown [place] Allergy/093547251( 068297(RXNORM) [place] SNOMED [facility]) Hospital Repository 01/12/2018 Drug acetaminophen/F0 Other Unknown [place] Allergy/974562229( 33044881(RXNORM) [place] SN[facility]) Hospital Repository 01/12/2018 Drug prednisone/F0060 Other Unknown [place] Allergy/640552743( 50345(RXNORM) [place] SNOM[facility]) Hospital Repository 01/12/2018 Drug ketoconazole/F00 Nausea Unknown [place] Allergy/362694365( 2870418(RXNORM) [facility] SNOMED CT) Hospital Repository 01/12/2018 Drug gabapentin/F0060 Other Unknown [place] Allergy/152693652( 72296(RXNORM) [facility] SNOMED CT) Hospital Repository 01/12/2018 Drug levofloxacin/F00 Other Unknown [place] Allergy/385771850( 3742914(RXNORM) [facility] SNOMED CT) Hospital Repository 01/12/2018 Miscellaneous MYKEL Other Unknown [place] Allergy/850326048( [facility] SNOMED CT) Hospital Repository 01/12/2018 Miscellaneous VICODIN Other Unknown [place] Allergy/173996687( [facility] SNOMED CT) Hospital Repository ENCOUNTERS ENCOUNTERS ADMIT/DISCHARGE ACCOUNT ADMITTING ENCOUNTER LOCATION SOURCE NUMBER CLASS 03/24/2018 [id number] Ambulatory [facility] ing:[facility] Repository 03/17/2018 81702 Ambulatory Building:[facility] OHIP Practices Repository 03/11/2018 [id number] Ambulatory [facility] ing:RAD Repository 03/03/2018/03/03/20 [id number] Ambulatory [address] ing:PT Repository 02/04/2018 [id number] [facility] [place] g[facility]H.[place] Repository 01/28/2018 [id number] Ambulatory [facility] [place] g:H.PAT Repository 01/16/2018/01/17/20 [id number] Ambulatory [address] ing:EN Repository 01/16/2018/01/17/20 [id number] Ambulatory BMSBuilding:B [place] 18 MS.CF.[facility] Repository 12/30/2017/12/31/19 [id number] Ambulatory BMSBuilding:B [place] 18 MS.[facility] Repository 11/05/2017/11/06/19 [id number] Ambulatory BMSBuilding:B [place] 18 MS.[facility] Repository 10/22/2017/10/23/19 [id number] Ambulatory BMSBuilding:B [place] 18 MS.[facility] Repository 10/21/2017 [id number] Ambulatory [facility] Hospital ing:[facility]SPEC Repository 10/07/2017 [id number] Ambulatory [facility] Hospital ing:[facility] Repository 10/07/2017 [id number] Ambulatory BMSBuilding:W [place] [facility] Repository 07/29/2017 [id number] Ambulatory [place] [facility] ing:HPRAD Repository 06/02/2017 [id number] Ambulatory [address] [place] [address] Repository 05/12/2017/05/12/19 [id number] Ambulatory [place] [address] [place] [address] ing:PT Repository PAYERS PAYERS ENCOUNTER GUARANTOR PAYER SUBSCRIBER SOURCE 03/24/2018 MOISES C Primary MOISES C [place] [id number] Insurance:MEDICARE SHIPEDOB: [facility] HUNTERSara MARIE PART A BPolicy [id number] Number: Repository [address]Bkv: [phone] [id number] [phone] () Date:2018-03-17 03/24/2018 Secondary MOISES C [place] Insurance:ANTHEMPolic SHIPEDOB: [facility] y Number: [id number] Hospital [id number] Repository Date:7761-48-49KK [address] [place] [address]PW: 03/24/2018 Tertiary NOT GIVENUNK [place] Insurance:SELF PAY [facility] Number: Effective Repository Date:2018-03-17 03/17/2018 MOISES C Primary MOISES C OHIP Practices SHIPEDOB: Insurance:MedicarePol SHIPEDOB: Repository [id number] icy Number: [id number] [place] Marie [id number] 2 [place] Cynthia [place], [place] Date:1103-52-12Zrri Maria [place], [place] [address]Wxk: ([phone]) Name:[facility] Steven [id number]: () [id number], [place] [phone] () [address]36[address]OX: 03/17/2018 Secondary MOISES C OHIP Practices Insurance:Halsey SHIPEDOB: Repository /[facility] Number: [id number] 2 [place] Marie Date:3151-98-66Msts [place], [place] Name:[address] [address]Vtb: [id number], [place] ~(3 [phone]: [phone] 03/11/2018 MOISES C Primary MOISES C [place] [id number] Insurance:MEDICARE SHIPEDOB: [facility] PART A [facility] [id number], [place] Number: Repository [address]Pzg: 330 [id number] [phone] () Date:2018-03-05 03/11/2018 Secondary MOISES C [place] Insurance:ANTHEMPolic SHIPEDOB: Community y Number: [id number] Rehabilitation [id number] Repository Date:0146-72-33RD [address]OHZWCD, [place] [address]JD: 03/11/2018 Tertiary NOT GIVENUNK [place] Insurance:SELF PAY [facility] Number: Effective Repository Date:2018-03-05 03/03/2018 MOISES C Primary MOISES C [place] [id number] Insurance:MEDICARE SHIPEDOB: [facility] PART A [facility] [id number], [place] Number: Repository [id number]: 330 [id number] [phone] () Date:2000-01-27 03/03/2018 Secondary MOISES C [place] Insurance:ANTHEMPolic SHIPEDOB: Community y Number: [id number] Rehabilitation [id number] Repository Date:0942-88-63TW [address] [place] [address]HF: 03/03/2018 Tertiary NOT GIVENUNK [place] Insurance:SELF PAY [facility] Number: Effective Repository Date:2018-02-16 02/04/2018 MOISES C Primary MOISES C [facility] [id number] Insurance:MEDICAREPol [facility] Number: Repository [place], [place] [id number]: ([phone]) Date:2000-01-27P O [phone] () [address]QWO CODE [id number], [place] [address]XP: 02/04/2018 Secondary MOISES C [facility] Insurance:[facility] Number: Repository [id number] Date:6283-91-04WX [address]BTQSIUZ, [place] [address]VP: 01/28/2018 MOISES C Primary MOISES C [facility] [id number] Insurance:MEDICAREPol SHIPEUNK [facility] [place] SAUNDERS ic Number: Repository [place], [place] [id number]: 330) Date:2000-01-27P O [phone] () [address] CODE [id number], [place] [address]HQ: 01/28/2018 Secondary MOISES C [facility] Insurance:[facility] Number: Repository [id number] Date:0428-09-69QW [address]LSYKKY, [place] [address]GI: 01/16/2018 MOISES C Primary MOISES C [place] [id number] Insurance:MEDICARE SHIPEDOB: [facility] PART A [place] [id number] Number: Repository [id number]: [phone] [id number] [phone] () Date:2017-12-30 01/16/2018 Secondary MOISES C [place] Insurance:ANTHEMPolic SHIPEDOB: Community y Number: [id number] Rehabilitation [id number] Repository Date:0536-64-54LT [address] [place] [address]TB: 01/16/2018 Tertiary NOT GIVENUNK [place] Insurance:SELF PAY [facility] Number: Effective Repository Date:2017-12-30 01/16/2018 MOISES C Primary MOISES C [place] [id number] Insurance:MEDICARE SHIPEDOB: [facility] PART A [facility] [id number] Number: Repository [id number]: 330 [id number] [phone] () Date:2017-12-30 01/16/2018 Secondary MOISES C [place] Insurance:ANTHEMPolic SHIPEDOB: Community y Number: [id number] Rehabilitation [id number] Repository Date:3403-84-21YI [address]OVZY[place], [place] [address]WD: 01/16/2018 Tertiary NOT GIVENUNK [place] Insurance:SELF PAY [facility] Number: Effective Repository Date:2018-01-16 12/30/2017 MOISES C Primary MOISES C [place] [id number] Insurance:MEDICARE SHIPEDOB: [facility] [place]INA MARIE PART A [place] [id number] [place] Number: Repository [id number]: 330 [id number] [phone] () Date:2017-12-12 12/30/2017 Secondary MOISES C [place] Insurance:ANTHEMPolic SHIPEDOB: Community y Number: [id number] Rehabilitation [id number] Repository Date:1882-99-91HV [address], [place] [address]TZ: 12/30/2017 Tertiary NOT GIVENUNK [place] Insurance:SELF PAY [facility] Number: Effective Repository Date:2017-12-30 11/05/2017 MOISES C Primary MOISES C [place] [id number] Insurance:MEDICARE SHIPEDOB: [facility] CAROLINA MARIE PART A [facility] [id number] [place] Number: Repository [address]Dwo: 330 [id number] [phone] () Date:2017-10-31 11/05/2017 Secondary MOISES C [place] Insurance:ANTHEMPolic SHIPEDOB: Community y Number: [id number] Rehabilitation [id number] Repository Date:4023-74-92BF [address]VKCSXTQ, [place] [address]UE: 11/05/2017 Tertiary NOT GIVENUNK [place] Insurance:SELF PAY [facility] Number: Effective Repository Date:2017-11-05 10/22/2017 MOISES C Primary MOISES C [place] [id number] Insurance:MEDICARE SHIPEDOB: [facility] CAROLINA MARIE PART A [facility] [id number] [place] Number: Repository [id number]: 330 [id number] [phone] (HP) Date:2017-03-31 10/22/2017 Secondary MOISES C [place] Insurance:ANTHEMPolic SHIPEDOB: Community y Number: [id number] Rehabilitation [id number] Repository Date:6641-02-01UI [address] [place] [address]AO: 10/22/2017 Tertiary NOT GIVENUNK [place] Insurance:SELF PAY [facility] Number: Effective Repository Date:2017-03-31 10/21/2017 [place] C Primary MOISES C [place] [id number] Insurance:MEDICARE SHIPEDOB: [facility] PART A [facility] [id number] [place] Number: Repository [address]Dok: 330 [id number] [phone] () Date:2017-10-21 10/21/2017 Secondary [place] C [place] Insurance:ANTHEMPolic ShipeDOB: Community y Number: [id number] Rehabilitation [id number] Repository Date:6341-09-76FR [address] [place] [address]YA: 10/21/2017 Tertiary NOT GIVENUNK [place] Insurance:SELF PAY [facility] Number: Effective Repository Date:2017-10-21 10/07/2017 [place] C Primary MOISES C [place] [id number] Insurance:MEDICARE SHIPEDOB: [facility] PART A [facility] [id number] Number: Repository [id number]: [id number] [phone] Date:2017-09-05 () 10/07/2017 Secondary Moises C [place] Insurance:ANTHEMPolic ShipeDOB: Community y Number: [id number] Rehabilitation [id number] Repository Date:4766-70-58BY [address]SIHMMBI, [place] [address]GL: 10/07/2017 Tertiary NOT GIVENUNK [place] Insurance:SELF PAY [facility] Number: Effective Repository Date:2017-09-05 10/07/2017 MOISES C Primary MOISES C [place] [id number] Insurance:MEDICARE SHIPEDOB: [facility] CAROLINA MARIE PART A [facility] [id number] [place] Number: Repository [address]Snh: [phone] [id number] [phone] () Date:2017-09-05 10/07/2017 Secondary MOISES C [place] Insurance:ANTHEMPolic SHIPEDOB: Community y Number: [id number] Children's [id number] Repository Date:4312-66-13PT [address]BDKYSCR, [place] [address]IJ: 10/07/2017 Tertiary NOT GIVENUNK [place] Insurance:SELF PAY [facility] Number: Effective Repository Date:2017-10-07 07/29/2017 [place] C Primary MOISES C [place] [id number] Insurance:MEDICARE SHIPEDOB: [facility] CAROLINA MARIE PART A [facility] [id number], [place] Number: Repository [id number]: [id number] [phone] Date:2017-07-29 () 07/29/2017 Secondary [place] C [place] Insurance:ANTHEMPolic ShipeDOB: Community y Number: [id number] Rehabilitation [id number] Repository Date:3263-00-84NX [address]ZPAGQSL, [place] [address]AD: 07/29/2017 Tertiary NOT GIVENUNK [place] Insurance:SELF PAY [facility] Number: Effective Repository Date:2017-07-29 06/02/2017 MOISES SHIPEDOB: Primary MOISES SHIPEDOB: [place] [id number] Insurance[facility] [id number] [place] [address] Number: 2 CAR[place]INA CYNTHIA Repository [place], [place] [id number] [place], [place] [id number]: Date:Plan Name:[facility] [id number]: B () () 06/02/2017 Secondary MOISES SHIPEDOB: [place] Insurance:AnthemPolic [id number] Hospitals y Number: 2 [facility] Repository [id number] [place] Date:Plan Name:Health [id number]: () 05/12/2017 Moises C Primary MOISES C [place] [id number] Insurance:MEDICARE SHIPEDOB: [facility] PART A [facility] [id number], [place] Number: Repository [address]Iqt: [id number] [phone] Date:2000-01-27 () 05/12/2017 Secondary Moises C [place] Insurance:ANTHEMPolic ShipeDOB: Community y Number: [id number] [facility] [id number] Repository Date:6541-84-68E[address] [address]BU: 05/12/2017 Tertiary NOT GIVENUNK [place] Insurance:SELF PAY [facility] Number: Effective Repository Date:2017-03-31
== END ==
PROVIDERS: Family Provider Internal Medicine; PCP Internal Medicine; Referring Provider Internal Medicine; Visit Provider Internal Medicine
DX: I65.23 Occlusion and stenosis of bilateral carotid arteries (principal)
CPT/HCPCS: 93880

== ENCOUNTER → 2018-04-15 11:44 | Outpatient (CLI) | payer MEDICARE, BC, SELFPAY ==
[2018-04-15 12:44] LABS: Absolute Lymphocyte Count 1.64 X10^3/ul (0.83-4.51); Absolute Neutrophil Count 3.3 X10^3/uL (2.0-7.7); Basophil# 0.01 X10^3/uL; Basophil% 0.2 % (0-1); Eosinophil# 0.11 X10^3/uL; Hematocrit 40.9 % (40-54); Hemoglobin 13.6 g/dl (13.0-16.5); Lymphocyte # 1.64 X10^3/ul (4.0); Lymphocyte % 30.3 % (19-41); Mean Corp Hgb Conc 33.3 g/gl (32-36); Mean Corpuscular Hgb 29.9 pg (27.0-32.0); Mean Corpuscular Volume 89.9 fL (80-94); Mean Platelet Vol. 9.6 fl (6.2-12.0); Monocyte# 0.39 X10^3/uL; Monocyte% 7.2 % (0-10); Neutrophil # 3.25 X10^3/uL (2.7-7.7); Neutrophil % 60.1 % (47-70); POSITIVE COUNT NO; POSITIVE DIFFERENTIAL NO; POSITIVE MORPHOLOGY NO; Platelet Count 143 K/mm3 (150-450); RBC Distribution Width CV 13.2 % (11.6-14.6); Red Blood Count 4.55 M/mm3 (4.6-6.2); White Blood Count 5.4 K/mm3 (4.4-11.0)
[2018-04-15 13:19] LABS: Anion Gap 8 (5-15); BUN 17 mg/dL (7-18); BUN/Creat Ratio 17.4 RATIO (10-20); Calcium,Total 8.7 mg/dL (8.5-10.1); Chloride 106 mmol/L (98-107); Creatinine, Serum 0.98 mg/dL (0.70-1.30); EST Glomerular Filtration Rate 78 mL/min (>60); Est Glom Filt Rate - Afr Amer 95 mL/min (>60); Glucose 106 mg/dL (74-106); Sodium Level 143 mmol/L (136-145)
--- OUTSIDE RECORDS SUMMARY | 2018-07-17 16:00 | XMS RPT_ITS ---
:1935 Author Organization OHIP Support Name Relationship Address Phone R Unavailable Unavailable Unavailable SAURERS, ISAAC Unavailable [address] + [place] [address] R Unavailable Unavailable Unavailable SAURERS, ISAAC Unavailable [address] + [place] [address] R Unavailable Unavailable Unavailable SAURERS, ISAAC Unavailable [address] + [place] [address] R Unavailable Unavailable Unavailable SAURERS, ISAAC Unavailable [address] + [address] [place] [address] R Unavailable Unavailable Unavailable SAURERS, ISAAC Unavailable [address] + [address] [place] [address] R Unavailable Unavailable Unavailable SAURERS, ISAAC Unavailable [address] + [address] [place] [address] BRADY AHUJAARET Unavailable [address] + [place] [address] IBIS AHUJAT Unavailable [address] + [place] [address] R Unavailable Unavailable Unavailable SAURERS, ISAAC Unavailable [address] + [address] [place] [address] R Unavailable Unavailable Unavailable SAURERS, ISAAC Unavailable [address] + [address] [place] [address] R Unavailable Unavailable Unavailable SAURERS, ISAAC Unavailable [address] + [address] [place] [address] R Unavailable Unavailable Unavailable SAURERS, ISAAC Unavailable [address] + [address] [place] [address] R Unavailable Unavailable Unavailable R Unavailable Unavailable Unavailable SAURERS, ISAAC Unavailable [address] + [address] [place] [address] XI TERESA Unavailable [address] + [place] [address] R Unavailable Unavailable Unavailable SAURERS, ISAAC Unavailable [address] + [address] [place] [address] XI TERESA Unavailable [address] + [place] [address] R Unavailable Unavailable Unavailable SAURERS, ISAAC Unavailable [address] + [address] [place] [address] R Unavailable Unavailable Unavailable SAURERS, ISAAC Unavailable [address] + [address] [place] [address] XI TERESA Unavailable [address] + [place] [address] R Unavailable Unavailable Unavailable SAURERS, ISAAC Unavailable [address] + [address] [place] [address] SAURERS, ISAAC Unavailable Unavailable + SAURERS, ISAAC Unavailable Unavailable + Care Team Providers Name Role Dr. Charly Cohen Attending Unavailable *SELF, REFERRED Referring Unavailable Bonezzi, Samia Cruz Primary Care Unavailable Edward Serrano Attending Unavailable Edward Serrano Referring Unavailable Bonezzi, Samia Primary Care Unavailable Humberto Erickson Unavailable Edward Serrano Attending Unavailable Edward Serrano Referring Unavailable Bonezzi, Samia Primary Care Unavailable Bonezzi, Samia Attending Unavailable Bonezzi, Samia Referring Unavailable Bonezzi, Samia Primary Care Unavailable Bonezzi, Samia Attending Unavailable Bonezzi, Samia Referring Unavailable Bonezzi, Samia Primary Care Unavailable Fast, Herlinda Attending Unavailable Fast, Herlinda Referring Unavailable Bonezzi, Samia Primary Care Unavailable Edelmira Zayas Attending Unavailable Bonezzi, Samia Referring Unavailable Bonezzi, Samia Primary Care Unavailable Mehdi Foote Attending Unavailable Bonezzi, Samia Referring Unavailable Bonezzi, Samia Primary Care Unavailable Tacho Rolle Attending Unavailable Dipak MILNER, Nay Attending Unavailable Bonezzi, Samia Referring Unavailable Bonezzi, Samia Primary Care Unavailable Jermaine Avinaril Attending Unavailable Edward Serrano Referring Unavailable Calabrrama, Mehdi Attending Unavailable Calabretta, Mehdi Referring Unavailable Bonezzi, Samia Primary Care Unavailable Calabrrama, Mehdi Attending Unavailable RONY OLIVA Attending Unavailable Bonezzi, Samia Primary Care Unavailable RONY OLIVA Consulting Unavailable RONY OLIVA Referring Unavailable Anmol Fisher Attending Unavailable Bonezzi, Samia Primary Care Unavailable Bonezzi, Samia Attending Unavailable Bonezzi, Samia Referring Unavailable Bonezzi, Samia Primary Care Unavailable Samia Dominguez MD Attending Unavailable Boneserena HARRY, Samia M Referring Unavailable BoneSamia lyons MD Consulting Unavailable Geremias Mei Attending Unavailable Bonezzi, Samia M. Primary Care Unavailable Geremias Mei Attending Unavailable PROBLEMS PROBLEMS DATE TYPE CONDITION / CODE ATTENDING STATUS SOURCE Unknown Z01.818 - Encounter Maggie, Active [place] [address] [facility] preprocedural Hospital examination / Repository Z01.818(ICD-10) Unknown Z01.810 - Encounter Maggie Active [place] [address] [facility] cardiovascular Hospital examination / Repository Z01.810(ICD-10) Unknown R94.31 - Abnormal Kailyn, Horacio Active [place] 9 electrocardiogram Community [ECG] [EKG] / Hospital R94.31(ICD-10) Repository Unknown M50.30 - Other RONY OLIVA Active [place] 8 cervical disc Community degeneration, Hospital unspecified cervical Repository region / M50.30(ICD-10) Admitting Unknown / UNK(Unknown) Geremias Mei Active [facility] 8 diagnosis [facility] [place] Repository Unknown Z12.11 - Encounter for Dary Active [place] 8 screening for [facility] malignant neoplasm of Hospital colon / Z12.11(ICD-10) Repository Unknown Z86.010 - Personal Dary Active [place] 8 history of colonic Mehdi Community polyps / Hospital Z86.010(ICD-10) Repository Unknown K57.30 - Dary, Active [place] 8 Diverticulosis of [facility] large intestine Hospital without perforation or Repository abscess without bleeding / K57.30(ICD-10) Unknown A04.72 - Enterocolitis Dary, Active [place] 8 due to Clostridium [facility] difficile, not Hospital specified as recurrent Repository / A04.72(ICD-10) Unknown K57.92 - Fast, Herlinda Active [place] 8 Diverticulitis of [facility] intestine, part Hospital unspecified, without Repository perforation or abscess without bleeding / K57.92(ICD-10) Unknown R10.9 - Unspecified Bonezzi, Samia Active [place] 8 abdominal pain / Community R10.9(ICD-10) Hospital Repository PROCEDURES PROCEDURES No Procedure Records FoundRESULTS RESULTS INITAL EVALUATION (1) Observed: 05/01/2018 Status: F Source: [place] - [place] 6:39 [place] [facility] [place] [facility] Physical Therapy Health[address] [place] [address] / REHABILITATION SERVICES INITIAL EVALUATION MR#: [id number] Acct: [id number] Name: MOISES AHUJA Rep #: [id number] : 1935 83 From: Ashok Nolasco DPT, OCS, CSCS Referring DrKarl: Edward Serrano DO Status: REG RCR Insurance: MEDICARE PART A B [facility] Patient's Visit Information MOISES AHUJA is a 83 year old M referred to Physical Therapy by Edward Serrano DO with a diagnosis of L shoulder scope OA, 04/23/18. Date of Evaluation: 04/30/18 Physical Therapist: Ashok Nolasco DPT, OCS, CSCS - Visit Plan Frequency: 2x /Week Duration: 4-6 Weeks Plan: 2x/week for 4-6 weeks for. 1. start A/PROM L shoulder and progress home ROM ex. 2. Strength L shoulder/scap/ and posture. ice as needed. - Subjective Findings: 04/23/18 shaved some bone spurs L shoulder by Dr. Serrano. Had constant 3/10 pain prior and shooting to 10/10 with movement. Is R handed. Sleeping over the last week has been up and down. Has some pain pills which help and needs to ice at night some times and sit in chair. Sleeping in bed since the first two nights . In sling all night and day for the next week at least. Pain now is 0/10. No HEP. Precaution is to keep it in the sling. Dressing self this morning. has helped him in the past. She is taking care of the house. He normally cleans the house. Grandson is driving him right now until he gets off pills. Activiies to get back to: dress nromal. use arm without pain. - Pain L shoulder Pain Intensity (Out of 10): 0 Pain Intensity Range: 0, 9 - Objective C/S aROM limited but not painful ext 30, B rot 45. R UE AROM WFL adn painfree. L UE AROM wrist and elbow WFL. Shoulder. flexion 110, abd 100, ext rot 15, IR at 90 abd 80. PROM 134 flexion and 120 abd limited by pain more than stiffness. Strength not tested. arthroscopic incisions have stitches and no excessive redness heat or swelling. - Goals Goal 1:: Full aROM without Pain to 150 flexiona dn abd and 60 ext rotation. Goal Time Frame: 4-6 Weeks Goal 2:: Strength at 4/5 without pain L shoulder tests Goal Time Frame: 4-6 Weeks Goal 3:: Get dressed in normal fashion and time frame without assist. Goal Time Frame: 4-6 Weeks Goal 4:: I approp HEP to minimize future problems Goal Time Frame: 4-6 Weeks Goal 5:: Pt feel back to 90% normal activities without pain at rest. Goal Time Frame: 4-6 Weeks - Rehabilitation Potential Physical Therapy Diagnosis: s/p L shoulder scope Rehabilitation Potential: Good - Anticipated Interventions Patient/Client Instruction: Educate patient on: Condition, Plan of Care For the Purpose of:: To decrease pain, To increase ROM, To increase tolerance to activity/condition/position Therapeutic Exercise to Include: Strength training, Postural training, Passive ROM, Active ROM, Scapular Strength/Stabilization For the Purpose of:: To decrease pain, To increase ROM, To improve nutrient delivery to tissue, To increase tolerance to activity/condition/position, To improve ability of physical actions for home/community/work/leisure Manual Therapy Techniques to Include: Scar massage, Passive ROM For the Purpose of:: To increase tolerance to activity/condition/position Cryotherapy (ice pack, ice massage): Yes For the Purpose of:: To decrease swelling/inflammation Thank you for the opportunity to evaluate your patient. For Medicare and Medicare HMO plans, please review the plan of care and approve it. It will need to be FAXED BACK to us at [phone] for Medicare purposes. For Medicare only, by signing this I certify the plan of care. Please let me know if there are questions or concerns regarding this plan of care. Physician Signature: Date: <Electronically signed by Ashok Nolasco DPT, OCS, CSCS> 05/01/18 0639 CC: Samia Dominguez MD; Edward Serrano DO EBG Signed CBC W/DIFF, AUTOMATED Collected: 04/15/2018 Status: F Source: [place] 11:52 [place] [facility] [place] TYPE CODE TESTS RESULT OUT OF RANGE REFERENCE UNITS LAB L100.1000 4.4-11.0 K/mm3 Normal WBC 5.4 LAB L100.1200 4.6-6.2 M/mm3 Low RBC 4.55 LAB L100.1300 13.0-16.5 g/dl Normal HGB 13.6 LAB L100.1400 40-54 % Normal HCT 40.9 LAB L100.1500 80-94 fL Normal MCV 89.9 LAB L100.1600 27.0-32.0 pg Normal MCH 29.9 LAB L100.1700 32-36 g/gl Normal MCHC 33.3 LAB L100.1810 11.6-14.6 % Normal RDW CV 13.2 LAB L100.1820 35.1-43.9 fl Normal RDW SD 43.0 LAB L100.1900 150-450 K/mm3 Low PLT 143 LAB L100.2000 6.2-12.0 fl Normal MPV 9.6 LAB L100.2100 47-70 % Normal NEUT% 60.1 LAB L100.2200 19-41 % Normal LY% 30.3 LAB L100.2300 0-10 % Normal MONO% 7.2 LAB L100.2400 0-5 % Normal EO% 2.0 LAB L100.2500 0-1 % Normal BASO% 0.2 LAB L100.2550 0.0-0.9 % Normal IM GRAN % 0.200 Result Comment: IG% - Immature Granulocytes (promyelocytes, myelocytes and metamyelocytes) > 1% indicates that a LEFT SHIFT is Present. LAB L100.2620 2.0-7.7 X10 3/uL Normal Absolute Neut 3.3 LAB L100.2720 0.83-4.51 X10 3/ul Normal Absolute Lymph 1.64 Performed By: #### L100.0100 #### [facility] [address] [place], [address] BASIC METABOLIC Collected: 04/15/2018 Status: F Source: [place] PROFILE ([facility]) 11:52 AM [facility] [place] TYPE CODE TESTS RESULT OUT OF RANGE REFERENCE UNITS LAB L501.0100 74-106 mg/dL Normal GLU 106 Result Comment: Fasting Glucose result from 100 to 125 mg/dL suggests IMPAIRED HOMEOSTASIS per A.D.A. criteria. Please note revised GLUCOSE reference range effective 2017. LAB L501.1000 7-18 mg/dL Normal BUN 17 LAB L501.1100 0.70-1.30 mg/dL Normal CREAT,SERUM 0.98 Result Comment: The validity of the calculated GFR AND GFRAA in patients over 70 years has not been determined. Clinical correlation is essential. LAB L501.1110 >60 mL/min Normal EST GFR 78 Result Comment: Non- GFR Calc LAB L501.1115 >60 mL/min Normal EST GFR - AA 95 Result Comment: GFR Calc LAB L501.1300 10-20 RATIO Normal BUN/CRE 17.4 LAB L501.2200 8.5-10.1 mg/dL CA Normal 8.7 LAB L501.5300 136-145 mmol/L NA Normal 143 LAB L501.5600 3.5-5.1 mmol/L K Normal 4.0 LAB L501.5900 98-107 mmol/L CL Normal 106 LAB L501.6100 21.0-32.0 mmol/L Normal CO2 29.0 LAB L501.6200 5-15 Normal GAP 8 Performed By: #### L500.2500 #### [facility] [address] [place], [address] CAROTID DUPLEX Observed: 03/25/2018 Status: F Source: [place] ULTRASOUND 11:37 AM [facility] [place] [facility] Cardiovascular Services [address] [place] [address] Carotid Duplex Ultrasound 03/24/18 1002 MR#: [id number] Acct: [id number] Name: MOISES AHUJA Rep #: [id number] : 1935 83 From: John Owens MD Attending Dr: Alberto HARRY,Samia Status: REG CLI Ordering Dr: Samia Dominguez [...] Simran Perales, RDCS, RVT 03/25/18 1136 Date John Owens MD CC: Samia Dominguez MD Date Dictated: 03/24/18 1002 Date Transcribed: 03/25/18 113 Pbx Teacher: Signed INJ/ASP RENETTA JT Observed: 03/11/2018 Status: F Source: [place] SHOULD/HIP/KNEE 8:47 AM [facility] [place] [facility] Imaging Services [address] [place] [address] Inj/Asp Renetta Jt Should/Hip/Knee MR#: [id number] Acct: [id number] Name: MOISES AHUJA Rep #: [id number] : 1935 M 83 From: Abdoulaye Garcia MD PCP: Samia Dominguez MD Status: REG CLI Study: Inj/Asp Renetta Jt Should/Hip/Knee Date of Exam: 03/11/18 Exam# [id number] Ordering Dr: Anmol Fisher MD PROCEDURE: Fluoroscopic [...] to the floor in stable condition. RAD/Inj/Asp Renetta Jt Should/Hip/Knee IMPRESSION: 1. Successful fluoroscopic guided left shoulder injection. Electronically Signed: Abdoulaye Garcia MD at 9:42 EST Tel [phone], Service support , CC: Samia Dominguez MD; Anmol Fisher MD Pbx Teacher: Signed PT D/C SUMMARY (1) Observed: 03/05/2018 Status: F Source: [place] 9:11 AM [facility] [place] [facility] Physical Therapy Health[address] [place] [address] Fax REHABILITATION SERVICES DISCHARGE SUMMARY MR#: [id number] Acct: [id number] Name: MOISES AHUJA Rep #: [id number] : 1935 83 From: Ashok MATAT, OCS, CSCS Referring DrKarl: Status: REG RCR [...] please feel free to call me at [phone]. Thank you for the referral of this patient. Sincerely, Ashok Nolasco, DPT, OC <Electronically signed by Ashok MATAT, OCS, CSCS> 03/05/18 0911 CC: Samia Dominguez MD; OUT OF TOWN DOCTOR EBG Signed INITAL EVALUATION (1) Observed: 02/18/2018 Status: F Source: [place] - PT 7:10 AM [facility] [place] [facility] Physical Therapy [facility] [address] [place] [address] Fax REHABILITATION SERVICES INITIAL EVALUATION MR#: [id number] Acct: [id number] Name: MOISES AHUJA Rep #: [id number] : 1935 82 From: Ashok Nolasco DPT, OCS, CSCS Referring Dr.: OUT OF TOWN [...] to be FAXED BACK to us at [phone] for Medicare purposes. Please let me know [...] SP W/O Observed: 02/04/2018 Status: F Source: [facility] CONTR[facility] 5:[facility] CERVICAL SP W/O CONTRAST Ordering Physician: [...] REPORT - Observed: 01/16/2018 Status: F Source: [place] ENDOSCOPY 10:50 AM [facility] [place] [facility] Medical Records Department [address] [facility] [facility] [facility] [place] [address] Operative Report - Endoscopy MR#: [id number] Acct: [id number] Name: MOISES AHUJA Rep #: [id number] : 1935 82 From: Mehdi Foote MD PCP: Samia Dominguez MD Status: [facility] Patient Name: Moises Ahuja Procedure Date: 01/16/2018 [...] to age. Procedure Code(s): --- Professional --- 19521, PT, Colonoscopy, flexible; diagnostic, including collection of specimen(s) by brushing or washing, when performed (separate procedure) Diagnosis Code(s): --- Professional --- Z86.010, Personal history of colonic polyps K57.30, Diverticulosis of large intestine without perforation or abscess without bleeding CPT copyright 2017 [employer]. All rights reserved. The codes documented in this report are preliminary and upon piping supervisor review may be revised to meet current compliance requirements. Mehdi Foote MD 01/16/2018 10:49:47 AM This report has been signed electronically. Number of Addenda: 0 Note Initiated On: 01/16/2018 10:15 AM 01/16/18 1049 Date Mehdi Foote MD [facility] Signature: Date (if indicated) CC: Mehdi Foote MD; Samia Dominguez MD Date Dictated: 01/16/18 1015 Date Transcribed: Pbx Teacher: SCOT Signed SURGERY VISIT REPORT Observed: 12/30/2017 Status: F Source: [place] 10:43 AM [facility] [place] [facility] [address] [place] [address] OFFICE VISIT Date of Service: 12/30/17 MR#: [id number] Acct: [id number] Name: MOISES AHUJA Rep #: [id number] : 1935 Provider: Nay Quesada PA-C Age/Sex: 82/M Location: [facility] Status: Signed Intake Vital Signs12/30/17 Height 5 ft 7 in 12/30/17 Weight: 195 lb Intake Visit Reasons: UPDATE H AND P Software Asset Management Analyst Required: No Is patient in pain?: No [...] mg PO QDAY 10/22/17 [History Confirmed 12/30/17] [facility] Medical History Nonrheumatic mitral valve prolapse (Chronic) [...] cardiac history of mitral valve prolapse. His manager recruiting is Dr. Avina. Patient's previous history per [...] VISIT REPORT Observed: 11/05/2017 Status: F Source: [place] 10:50 AM [facility] [place] [facility] [address] [place], [place] [address] OFFICE VISIT Date of Service: 11/05/17 MR#: [id number] Acct: [id number] Name: MOISES AHUJA Rep #: [id number] : 1935 Provider: Mehdi Foote MD Age/Sex: 82/M Location: [facility] Status: Signed Intake Vital Signs11/05/17 Height 5 ft 7 in 11/05/17 Weight: 201 lb 11/05/17 Body Mass Index (BMI) 31.4 Intake Visit Reasons: C-Scope Screening Software Asset Management Analyst Required: No Is patient in pain?: No [...] colonoscopy in December. Mehdi Foote MD Pager: [facility] [address] [place] [address], [address] [place] [address] Office: Orders Orders: Coding Level of Care Code Off vis,new,level 3 Diagnoses History of adenomatous polyp of colon Z86.010 Colitis K52.9 11/05/17 1050 <Electronically signed by Mehdi Foote MD> Date Mehdi Foote MD Cosigner Signature: Date (if applicable) CC: Samia Dominguez MD CARDIOLOGY VISIT Observed: 10/24/2017 Status: F Source: [place] REPORT 4:13 PM [facility] [place] [address] [place] [address] OFFICE VISIT Date of Service: 10/22/17 MR#: [id number] Acct: [id number] Name: MOISES AHUJA Rep #: [id number] : 1935 Provider: Edelmira Zayas Age/Sex: 82/M Location: [facility] Status: Signed HPI HPI Details: MOISES [...] brachial Intake Visit Reasons: 1 Y FU Software Asset Management Analyst Required: No Accompanied by: Allergies Penicillins Allergy [...] prior to saving. Follow Up 1 Year (ROOM CLERK) Coding Level of Care Code Off vis,est,level [...] I34.1 10/22/17 1122 <Electronically signed by Edelmira ENCINAS> Date Edelmira ENCINAS 10/24/17 1613<Electronically signed by Horacio [place] MD> Cosigner Signature: Date (if applicable) Horacio Avina MD CC: Samia Dominguez MD CBC W/DIFF, AUTOMATED Collected: 10/21/2017 Status: F Source: [place] 11:03 AM [facility] [place] Order Comment: Order Date: 10/21/17 Order Info: [id number] - CBCD Comments: stat Order Info: [id number] - SED TYPE CODE TESTS RESULT OUT [...] By: #### L100.0100, L101.9900, L500.4050, L501.6710 #### [facility] [address] [place], [place], [address] ERYTHROCYTE SED RATE Collected: 10/21/2017 Status: F Source: [place] 11:03 [facility] [place] REPOSITORY Order Comment: Order Date: 10/21/17 Order Info: [id number] - CBCD Comments: stat Order Info: [id number] - SED TYPE CODE TESTS RESULT OUT OF RANGE REFERENCE UNITS LAB L102.0000 0-20 mm/hr Normal SED RATE 8 Performed By: #### L100.0100, L101.9900, L500.4050, L501.6710 #### [facility] [address] [place], [place], [address] COMPREHENSIVE METABOLIC Collected: 10/21/2017 Status: F Source: [place] 11:03 [facility] [place] [place] REPOSITORY Order Comment: Order Date: 10/21/17 Order Info: [id number] - CMP Order Info: [id number] - CRP Comments: stat Comments: stat TYPE [...] By: #### L100.0100, L101.9900, L500.4050, L501.6710 #### [place] [facility] [address] [place], [address] CRP Collected: 10/21/2017 Status: F Source: [place] 11:03 AM [facility] [place] Order Comment: Order Date: 10/21/17 Order Info: [id number] - CMP Order Info: [id number] - CRP Comments: stat Comments: stat TYPE [...] By: #### L100.0100, L101.9900, L500.4050, L501.6710 #### [facility] [address] [facility] [place], [address] STRESS REPORT Observed: 10/07/2017 Status: F Source: [place] 5:02 PM [facility] [place] [facility] Cardiovascular Services [address] [place] [address] MR#: [id number] Acct: [id number] Name: MOISES AHUJA Rep #: [id number] : 1935 82 From: Tacho Rolle MD [...] 70 %. This note was generated with Stratioation software. It may contain incorrect words, spelling, and punctuation that were not noted in checking the note before signing. 10/07/17 1702 <Electronically signed by Tacho Rolle MD> Date Tacho Rolle MD CC: Samia Dominguez MD Date Dictated: 10/07/171655 Date Transcribed: 10/07/171655 Pbx Teacher: PM Signed ECHOCARDIOGRAM COMPLETE Observed: 10/07/2017 Status: F Source: [place] 3:06 PM [facility] [place] [facility] Cardiovascular Services [address] [place] [address] Echo Complete 10/07/17 0858 MR#: [id number] Acct: [id number] Name: MOISES AHUJA Rep #: [id number] : 1935 82 From: Tacho Rolle MD Attending Dr: Samia Dominguez MD Status: REG CLI Ordering Dr: Samia Dominguez MD Date: 10/07/17 [facility] Sex: M C Admitted: Reason For Study: [...] Doppler Measurements AND Calculations MV E max germán: 81.8 cm/sec Lat Peak E' Germán: 4.9 cm/sec Med Peak E' Germán: 4.9 cm/sec MV A max germán: 94.6 cm/sec E/E' lat: 16.7 E/E' med: [...] Physician: Samia Dominguez Performed By: Saida Denise [facility] 10/07/17 1505 Date Tacho Rolle MD CC: Samia Dominguez MD Date Dictated: 10/07/17 0858 Date Transcribed: 10/07/17 1505 Pbx Teacher: Signed ABDOMEN SINGLE VIEW Observed: 07/29/2017 Status: F Source: [place] 12:32 PM [facility] [place] [facility] Imaging Services [address] [place] [address] Abdomen Single View MR#: [id number] Acct: [id number] Name: MOISES AHUJA Rep #: [id number] : 1935 M 82 From: Abdoulaye Garcia MD PCP: Samia Dominguez MD Status: REG CLI Study: Abdomen Single View Date of Exam: 07/29/17 Exam# [id number] Ordering Dr: Samia Dominguez MD STUDY: X-RAY [...] Abdoulaye Garcia MD at 13:01 EDT Tel [phone], Service support , CC: Samia Dominguez MD Pbx Teacher: Signed ALLERGIES ALLERGIES DATE TYPE / CODE NAME / CODE REACTION SEVERITY SOURCE 01/12/2018 Drug hydrocodone Other Unknown [place] Allergy/578910856( bitartrate/F0000 Community SNOMED CT) 73895(RXNORM) Hospital Repository 01/12/2018 Drug Penicillins/F001 Swelling Unknown [place] Allergy/401413265( 709980(RXNORM) [facility] SNOMED CT) Hospital Repository 01/12/2018 Drug acetaminophen/F0 Other Unknown [place] Allergy/156249212( 17505854(RXNORM) [facility] SNOMED CT) Hospital Repository 01/12/2018 Drug prednisone/F0060 Other Unknown [place] Allergy/[id number]( 77496(RXNORM) [facility] SNOMED CT) Hospital Repository 01/12/2018 Drug ketoconazole/F00 Nausea Unknown [place] Allergy/079114418( 3212996(RXNORM) [facility] SNOMED CT) Hospital Repository 01/12/2018 Drug gabapentin/F0060 Other Unknown [place] Allergy/187283536( 41862(RXNORM) [facility] SNOMED CT) Hospital Repository 01/12/2018 Drug levofloxacin/F00 Other Unknown [place] Allergy/623974228( 0799531(RXNORM) [facility] SNOMED CT) Hospital Repository 01/12/2018 Miscellaneous MYKEL Other Unknown [place] Allergy/673115272( [facility] SNOMED CT) Hospital Repository 01/12/2018 Miscellaneous VICODIN Other Unknown [place] Allergy/541002473( [facility] SNOMED CT) Hospital Repository ENCOUNTERS ENCOUNTERS ADMIT/DISCHARGE ACCOUNT ADMITTING ENCOUNTER LOCATION SOURCE NUMBER CLASS 05/21/2018 [id number] Ambulatory [facility] ing:PT Repository 04/27/2018 [id number] Ambulatory Building:[facility] OHIP Practices Repository 04/15/2018 [id number] Ambulatory [facility] ing:LAB Repository 04/15/2018 [id number] Ambulatory BMSBuilding:W [facility] Repository 03/24/2018 [id number] Ambulatory [facility] ing:CVS Repository 03/11/2018 [id number] Ambulatory [facility] ing:RAD Repository 03/03/2018/03/03/20 [id number] Ambulatory [address] ing:PT Repository 02/04/2018 [id number] [facility] [place] [facility]H.[facility] Repository 01/28/2018 [id number] Ambulatory [facility] [place] g:H.PAT Repository 01/16/2018/01/17/20 [id number] Ambulatory [address] ing:EN Repository 01/16/2018/01/17/20 [id number] Ambulatory BMSBuilding:B [place] 18 MS.CF.[facility] Repository 12/30/2017/12/31/19 [id number] Ambulatory BMSBuilding:B [place] 18 MS.[facility] Repository 11/05/2017/11/06/19 [id number] Ambulatory BMSBuilding:B [place] 18 MS.[facility] Repository 10/22/2017/10/23/19 [id number] Ambulatory BMSBuilding:B [place] 18 MS.[facility] Repository 10/21/2017 [id number] Ambulatory [facility] ing:LABSPEC Repository 10/07/2017 [id number] Ambulatory [facility] ing:CVS Repository 10/07/2017 [id number] [facility] 07/29/2017 [id number] Ambulatory [facility] ing:HPRAD Repository 06/02/[id number] Repository PAYERS PAYERS ENCOUNTER GUARANTOR PAYER SUBSCRIBER SOURCE 05/21/2018 MOISES C Primary MOISES C [place] [id number] Insurance:MEDICARE SHIPEDOB: [facility] [place]INA MARIE PART A BPolicy [id number] Number: Repository 506[address]Rpb: [phone] [id number] [phone] () Date:2000-01-27 05/21/2018 Secondary MOISES C [place] Insurance:ANTHEMPolic SHIPEDOB: Community y Number: [id number] Hospital [id number] Repository Date:2818-32-27[address] [place] [address] 31078SG: 05/21/2018 Tertiary NOT GIVENUNK [place] Insurance:SELF PAY [facility] Number: Effective Repository Date:2018-04-15 04/27/2018 MOISES C Primary MOISES C OHIP Practices SHIPEDOB: Insurance:MedicarePol SHIPEDOB: Repository [id number] icy Number: [id number] [place] [id number] 2 [address] [place], [place] Date:2769-95-07BovyBartonsville, [place] [address]Lqo: ([phone]) Name:BOX COVERER HAND [address] [address]Dyj: () 632403Ktmupmpb, [place] [phone] (HP) 348[address]BJ: 04/27/2018 Secondary MOISES C OHIP Practices Insurance:Bally SHIPEDOB: [facility]: [id number] [address] [place] Date:1733-24-68WlwyBartonsville, [place] Name:[address] [address]Oeo: [address] [place] [address] ~[phone]: [phone] 04/15/2018 MOISES C Primary MOISES C [place] [id number] Insurance:MEDICARE SHIPEDOB: [facility] [place]TER[place] CY[place]IA PART A [place] [id number] Number: Repository [address]Qbt: 330 [id number] [phone] () Date:2018-04-15 04/15/2018 Secondary MOISES C [place] Insurance:ANTHEMPolic SHIPEDOB: Community y Number: [id number] Cancer [id number] Repository Date:3860-95-71TV [address] [place] [address] 53389WU: 04/15/2018 Tertiary NOT GIVENUNK [place] Insurance:SELF PAY [facility] Number: Effective Repository Date:2018-04-15 04/15/2018 MOISES C Primary MOISES C [place] [id number] Insurance:MEDICARE SHIPEDOB: [facility] HUNTERS CYNTHIA PART A [facility] [id number], [place] Number: Repository 77[address]Ggt: 330 [id number] [phone] () Date:2018-04-15 04/15/2018 Secondary MOISES C [place] Insurance:ANTHEMPolic SHIPEDOB: Community y Number: [id number] Cancer [id number] Repository Date:2971-58-77VN [address] [place] [address] 75361HU: 04/15/2018 Tertiary NOT GIVENUNK [place] Insurance:SELF PAY [facility] Number: Effective Repository Date:2018-04-15 03/24/2018 MOISES C Primary MOISES C [place] [id number] Insurance:MEDICARE SHIPEDOB: Community HUNTERS CYNTHIA PART A [facility] [id number], [place] Number: Repository 19[address]Yfr: 330 [id number] [phone] (HP) Date:2018-03-17 03/24/2018 Secondary MOISES C [place] Insurance:ANTHEMPolic SHIPEDOB: Community y Number: [id number] Cancer [id number] Repository Date:0930-92-57RS [address] [place] [address] 79824BJ: 03/24/2018 Tertiary NOT GIVENUNK [place] Insurance:SELF PAY [facility] Number: Effective Repository Date:2018-03-17 03/11/2018 MOISES C Primary MOISES C [place] [id number] Insurance:MEDICARE SHIPEDOB: Community HUNTERS CYNTHIA PART A [facility] [id number], [place] Number: Repository 74[address]Stn: 330 [id number] [phone] () Date:2018-03-05 03/11/2018 Secondary MOISES C [place] Insurance:ANTHEMPolic SHIPEDOB: Community y Number: [id number] Cancer [id number] Repository Date:2333-23-33WP [address] [place] [address] 85050JK: 03/11/2018 Tertiary NOT GIVENUNK [place] Insurance:SELF PAY [facility] Number: Effective Repository Date:2018-03-05 03/03/2018 MOISES C Primary MOISES C [place] [id number] Insurance:MEDICARE SHIPEDOB: Community HUNTERS CYNTHIA PART A [facility] [id number], [place] Number: Repository 475[address]Cxk: 330 [id number] [phone] () Date:2000-01-27 03/03/2018 Secondary MOISES C [place] Insurance:ANTHEMPolic SHIPEDOB: Community y Number: [id number] Hospital [id number] Repository Date:5462-24-58GZ [address]UANYB, [place] [address]QZ: 03/03/2018 Tertiary NOT GIVENUNK [place] Insurance:SELF PAY [facility] Number: Effective Repository Date:2018-02-16 02/04/2018 MOISES C Primary MOISES C [facility] [id number] Insurance:MEDICAREPol SHIPEUNK [place] HUNTERS CHASE icy Number: Repository [facility] [place] [id number] [id number]: (330) Date:2000-01-27P O [phone] () [address]HR[address] [place] ZC526KGUMRVMG, [place] [address]TF: 02/04/2018 Secondary MOISES C [facility] Insurance:[facility] Number: Repository [id number] Date:9841-01-98OF [address]NIIMWBU, [place] [address]QM: 01/28/2018 MOISES C Primary MOISES C [facility] [id number] Insurance:MEDICAREPol SHIPEUNK [place] SAUNDERS icy Number: Repository DRPALMER ri [id number]: (330) Date:2000-01-27P O [phone] () [address]PDFN CODE WW234FMXCRPRG, [place] [address]EL: 01/28/2018 Secondary MOISES C [facility] Insurance:[facility] Number: Repository [id number] Date:9509-45-65GK [address]JKOFEOW, [place] [address]MU: 01/16/2018 MOISES C Primary MOISES C [place] [id number] Insurance:MEDICARE SHIPEDOB: [facility] PART A BPolicy [id number], [place] Number: Repository [address]Srt: 330 [id number] [phone] () Date:2017-12-30 01/16/2018 Secondary MOISES C [place] Insurance:ANTHEMPolic SHIPEDOB: Community y Number: [id number] Regional Medical [id number] Repository Date:6151-48-09UA [address]IKMJCUK, [place] [address]TK: 01/16/2018 Tertiary NOT GIVENUNK [place] Insurance:SELF PAY [facility] Number: Effective Repository Date:2017-12-30 01/16/2018 MOISES C Primary MOISES C [place] [id number] Insurance:MEDICARE SHIPEDOB: [facility] HUNTERS CYNTHIA PART A [place] [id number], [place] Number: Repository [address]Uzn: 330 [id number] [phone] () Date:2017-12-30 01/16/2018 Secondary MOISES C [place] Insurance:ANTHEMPolic SHIPEDOB: Community y Number: [id number] Cancer [id number] Repository Date:9290-81-13HG [address]DLRSVWC, [place] [address]WY: 01/16/2018 Tertiary NOT GIVENUNK [place] Insurance:SELF PAY [facility] Number: Effective Repository Date:2018-01-16 12/30/2017 MOISES C Primary MOISES C [place] [id number] Insurance:MEDICARE SHIPEDOB: [facility] RYANS CYNTHIA PART A [place] [id number] Number: Repository [address]Aqk: 330 [id number] [phone] () Date:2017-12-12 12/30/2017 Secondary MOISES C [place] Insurance:ANTHEMPolic SHIPEDOB: Community y Number: [id number] Cancer [id number] Repository Date:1987-78-26RL [address]QKLIBLF, [place] [address]MG: 12/30/2017 Tertiary NOT GIVENUNK [place] Insurance:SELF PAY [facility] Number: Effective Repository Date:2017-12-30 11/05/2017 MOISES C Primary MOISES C [place] [id number] Insurance:MEDICARE SHIPEDOB: [facility] CARLOINA MARIE PART A [facility] [id number], [place] Number: Repository [address]Ujt: 330 [id number] [phone] (HP) Date:2017-10-31 11/05/2017 Secondary MOISES C [place] Insurance:ANTHEMPolic SHIPEDOB: Community y Number: [id number] Cancer [id number] Repository Date:9889-79-48GL [address] [place] [address] 159[address]FX: 11/05/2017 Tertiary NOT GIVENUNK [place] Insurance:SELF PAY [facility] Number: Effective Repository Date:2017-11-05 10/22/2017 MOISES C Primary MOISES C [place] [id number] Insurance:MEDICARE SHIPEDOB: [facility] CAROLINA MARIE PART A [facility] [id number] [place] Number: Repository [address]Kxr: 330 [id number] [phone] (HP) Date:2017-03-31 10/22/2017 Secondary MOISES C [place] Insurance:ANTHEMPolic SHIPEDOB: Community y Number: [id number] Cancer [id number] Repository Date:1154-69-90DR [address] [place] [address]YE: 10/22/2017 Tertiary NOT GIVENUNK [place] Insurance:SELF PAY [facility] Number: Effective Repository Date:2017-03-31 10/21/2017 Moises C Primary MOISES C [place] [id number] Insurance:MEDICARE SHIPEDOB: [facility] CAROLINA MARIE PART A [facility] [id number] [place] Number: Repository [address]Jay: 330 [id number] [phone] (HP) Date:2017-10-21 10/21/2017 Secondary [place] Insurance:ANTHEMPolic ShipeDOB: Community y Number: [id number] Regional Medical [id number] Repository Date:0363-41-28JP [address]BPBUOJR, [place] [address]GA: 10/21/2017 Tertiary NOT GIVENUNK [place] Insurance:SELF PAY [facility] Number: Effective Repository Date:2017-10-21 10/07/2017 Moises C Primary MOISES C [place] [id number] Insurance:MEDICARE SHIPEDOB: [facility] HUNTERS CYNTHIA PART A [facility] [id number] [facility] [place] Number: Repository [address]Izc: [id number] [phone] Date:2017-09-05 () 10/07/2017 Secondary Moises C [place] Insurance:ANTHEMPolic ShipeDOB: Community y Number: [id number] Cancer [id number] Repository Date:0820-92-14ZG [address]DEPZSJL, [place] [address]RG: 10/07/2017 Tertiary NOT GIVENUNK [place] Insurance:SELF PAY [facility] Number: Effective Repository Date:2017-09-05 10/07/2017 MOISES C Primary MOISES C [place] [id number] Insurance:MEDICARE SHIPEDOB: [facility] HUNTERS CYNTHIA PART A [facility] [id number]-Clarksburg Hospital [place] Number: Repository [address]Lbi: [phone] [id number] [phone] () Date:2017-09-05 10/07/2017 Secondary MOISES C [place] Insurance:ANTHEMPolic SHIPEDOB: Community y Number: [id number] Cancer [id number] Repository Date:4613-49-05UA [address]TMYFABY, [place] [address]LA: 10/07/2017 Tertiary NOT GIVENUNK [place] Insurance:SELF PAY [facility] Number: Effective Repository Date:2017-10-07 07/29/2017 [place] Primary MOISES C [place] [id number] Insurance:MEDICARE [facility]OB[facility] CY[facility] [id number] [facility] [place] Number: Repository [address]Ate: [id number] [phone] Date:2017-07-29 (HP) 07/29/2017 Secondary [place] Insurance:ANTHEMPolic ShipeDOB: Community y Number: [id number] [facility] [id number] Repository Date:3940-40-71XJ JEFERSON [address]58[address]QSICIJD [place] [address]JQ: 07/29/2017 Tertiary NOT GIVENUNK [place] Insurance:SELF PAY [facility] Number: Effective Repository Date:2017-07-29 06/02/2017 MOISES SHIPEDOB: Primary MOISES SHIPEDOB: [place] [id number] Insurance[facility] [place] [id number] [facility] icy Number: 2 [facility] Repository [place], [place] [id number] [place], [place] [id number]: Date:Plan Name:[facility] [id number]: B () () 06/02/2017 Secondary MOISES SHIPEDOB: [place] Insurance:[facility] [id number] [facility] y Number: 2 [facility] Repository [id number] [facility], [place] Date:Plan Name:[facility] [id number]: ()
== END ==
PROVIDERS: Physician Assistant; Family Provider Internal Medicine; PCP Internal Medicine; Referring Provider Orthopaedic Surgery; Visit Provider Orthopaedic Surgery
DX: Z01.818 Encounter for other preprocedural examination (principal); Z01.810 Encounter for preprocedural cardiovascular examination
CPT/HCPCS: 36415; 80048; 85025; 93005

== ENCOUNTER 2018-06-16 10:30 | Outpatient (RCR) | payer MEDICARE, BC, SELFPAY ==
--- NOTE | 2018-04-30 11:41 | HP.PTEVAL ---
Patient's Visit Information ANTONETTE HARRIS is a 83 year old M referred to Physical Therapy by Edward Serrano DO with a diagnosis of L shoulder scope OA, 04/23/18. Date of Evaluation: 04/30/18 Physical Therapist: Ashok Nolasco, DPT, OCS, CSCS - Visit Plan Frequency: 2x /Week Duration: 4-6 Weeks Plan: 2x/week for 4-6 weeks for. 1. start A/PROM L shoulder and progress home ROM ex. 2. Strength L shoulder/scap/ and posture. ice as needed. - Subjective Findings: 04/23/18 shaved some bone spurs L shoulder by Dr. Serrano. Had constant 3/10 pain prior and shooting to 10/10 with movement. Is R handed. Sleeping over the last week has been up and down. Has some pain pills which help and needs to ice at night some times and sit in chair. Sleeping in bed since the first two nights . In sling all night and day for the next week at least. Pain now is 0/10. No HEP. Precaution is to keep it in the sling. Dressing self this morning. has helped him in the past. She is taking care of the house. He normally cleans the house. Grandson is driving him right now until he gets off pills. Activiies to get back to: dress nromal. use arm without pain. - Pain L shoulder Pain Intensity (Out of 10): 0 Pain Intensity Range: 0, 9 - Objective C/S aROM limited but not painful ext 30, B rot 45. R UE AROM WFL adn painfree. L UE AROM wrist and elbow WFL. Shoulder. flexion 110, abd 100, ext rot 15, IR at 90 abd 80. PROM 134 flexion and 120 abd limited by pain more than stiffness. Strength not tested. arthroscopic incisions have stitches and no excessive redness heat or swelling. - Goals Goal 1:: Full aROM without Pain to 150 flexiona dn abd and 60 ext rotation. Goal Time Frame: 4-6 Weeks Goal 2:: Strength at 4/5 without pain L shoulder tests Goal Time Frame: 4-6 Weeks Goal 3:: Get dressed in normal fashion and time frame without assist. Goal Time Frame: 4-6 Weeks Goal 4:: I approp HEP to minimize future problems Goal Time Frame: 4-6 Weeks Goal 5:: Pt feel back to 90% normal activities without pain at rest. Goal Time Frame: 4-6 Weeks - Rehabilitation Potential Physical Therapy Diagnosis: s/p L shoulder scope Rehabilitation Potential: Good - Anticipated Interventions Patient/Client Instruction: Educate patient on: Condition, Plan of Care For the Purpose of:: To decrease pain, To increase ROM, To increase tolerance to activity/condition/position Therapeutic Exercise to Include: Strength training, Postural training, Passive ROM, Active ROM, Scapular Strength/Stabilization For the Purpose of:: To decrease pain, To increase ROM, To improve nutrient delivery to tissue, To increase tolerance to activity/condition/position, To improve ability of physical actions for home/community/work/leisure Manual Therapy Techniques to Include: Scar massage, Passive ROM For the Purpose of:: To increase tolerance to activity/condition/position Cryotherapy (ice pack, ice massage): Yes For the Purpose of:: To decrease swelling/inflammation Thank you for the opportunity to evaluate your patient. For Medicare and Medicare HMO plans, please review the plan of care and approve it. It will need to be FAXED BACK to us at [phone] for Medicare purposes. For Medicare only, by signing this I certify the plan of care. Please let me know if there are questions or concerns regarding this plan of care. Physician Signature: Date:
--- NOTE | 2018-05-26 10:46 | HP.PTREVAL ---
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 Please see the progress note below for an update on the physical therapy plan of care! Subjective: Better. Able to lie on L shoulder without waking now. Elbow ached after napping yesterday. Pretty good over the weekend. A couple incidence of pain anteriorly transiently to 6/10. Activities are getting close to normal. Has a heavy mattress that he needs to lift to change sheets. Otherwise back to normal. Able to open jar lids. Basic ADLs are normal. To doctor next week. Objective/Function: 150 aROM flexion adn 145 abd. ext rotation 60 L and IR full, no pain with these movements and strength 4/5 without pain. Plan Plan: f/u three weeks to ensure progress adn progress HEP as needed(inchworms, [place] beats) Goals Goal 1:: Full aROM without Pain to 150 flexiona dn abd and 60 ext rotation. Goal Time Frame: 4-6 Weeks Goal Progress: Goal Met Goal 2:: Strength at 4/5 without pain L shoulder tests Goal Time Frame: 4-6 Weeks Goal Progress: Goal Met Goal 3:: Get dressed in normal fashion and time frame without assist. Goal Time Frame: 4-6 Weeks Goal Progress: Goal Met Goal 4:: I approp HEP to minimize future problems Goal Time Frame: 4-6 Weeks Goal Progress: Goal Met Goal 5:: Pt feel back to 90% normal activities without pain at rest. Goal Time Frame: 4-6 Weeks Goal Progress: Goal Met Goal 6:: Maintain improvements over the next 3 weeks with consistent no pain. Goal Time Frame: 2-4 Weeks Goal Progress: NEW GOAL Anticipated Interventions Patient/Client Instruction: Educate patient on: Condition, Plan of Care For the Purpose of:: To decrease pain, To increase ROM, To increase tolerance to activity/condition/position Therapeutic Exercise to Include: Strength training, Postural training, Passive ROM, Active ROM, Scapular Strength/Stabilization For the Purpose of:: To decrease pain, To increase ROM, To improve nutrient delivery to tissue, To increase tolerance to activity/condition/position, To improve ability of physical actions for home/community/work/leisure Manual Therapy Techniques to Include: Scar massage, Passive ROM For the Purpose of:: To increase tolerance to activity/condition/position Cryotherapy (ice pack, ice massage): Yes For the Purpose of:: To decrease swelling/inflammation Please do not hesitate to contact me at [phone] by phone or if you have questions or concerns regarding this new plan of care! Sincerely, Ashok Nolasco, DPT, OCS, CSCS
--- NOTE | 2018-06-16 10:45 | HP.PTDCSUM ---
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 Discharge Date: 06/16/18 Please see the following information for a summary of their discharge status. - Subjective Subjective: Shoulders fine. back hurts. Hurt it sitting in car. Doctor thinks he has a disc problem. On prednisone and has 3 pills left. Not helping much. Shoulder is feeling well. Sore if reaches up anteriorly. Life and activities are normal with shoulder. HEP for shoulder is going well. - Pain L shoulder Pain Intensity (Out of 10): 4 - Overall Improvement % Improvement: 99 - Objective Objective/Function: Near full aROM, 152 L flexion adn 150 abd, 65 ext rotation and full IR, without pain. Strength is 4+ throughout shoulder adn symmetrical with R except ext rotation 4/5. - Goals Goal 1:: Full aROM without Pain to 150 flexiona dn abd and 60 ext rotation. Goal Progress: Goal Met Goal 2:: Strength at 4/5 without pain L shoulder tests Goal Progress: Goal Met Goal 3:: Get dressed in normal fashion and time frame without assist. Goal Progress: Goal Met Goal 4:: I approp HEP to minimize future problems Goal Progress: Goal Met Goal 5:: Pt feel back to 90% normal activities without pain at rest. Goal Progress: Goal Met Goal 6:: Maintain improvements over the next 3 weeks with consistent no pain. Goal Progress: Goal Met - Plan Plan: D/C to HEP - D/C Information Discharge Comments: Doing well and ready to be done. Will continue via HEP and notify doctor if any problems. will be in for LBP eval tomorrow If there are questions or concerns regarding this patient's physical therapy, please feel free to call me at [phone]. Thank you for the referral of this patient. Sincerely, Ashok Nolasco, DPT, OCS, CSCS
== END 2018-06-16 19:00 | disposition home or self-care (01) ==
LOC: PT 10:30
PROVIDERS: Family Provider Internal Medicine; PCP Internal Medicine; Referring Provider Internal Medicine; Visit Provider Internal Medicine
DX: M19.012 Primary osteoarthritis, left shoulder (principal)
CPT/HCPCS: 97014; 97110; 97140; 97162; 97530; G0283

== ENCOUNTER → 2018-06-23 15:48 | Outpatient (CLI) | payer MEDICARE, BC, SELFPAY ==
--- NOTE | 2018-06-23 15:52 | CT_ITS ---
STUDY: CT ABDOMEN AND PELVIS WITHOUT CONTRAST REASON FOR EXAM: Male, 83 years old. Low back pain. Left flank pain. RADIATION DOSAGE (If Supplied By Facility): CTDIvol = ( 13.89 ) mGy, DLP = ( 1205.06 ) mGycm TECHNIQUE: Transaxial images were obtained from the dome of the diaphragm to the symphysis pubis without oral contrast, and without intravenous contrast. Sagittal and coronal images were reconstructed. Individualized dose optimization techniques were used for this CT. COMPARISON: June 24, 2016. FINDINGS: The visualized lung bases are unremarkable. The visualized portions of the heart are within normal limits. Normal liver. There is non-visualization of the gallbladder, which may be secondary to either contraction or a prior cholecystectomy. Normal spleen. Normal pancreas. Normal bilateral adrenal glands. There are 3.5 and 1.0 cm cysts of the right kidney. There is 3.7 cm cyst of the left kidney.. There is a small hiatal hernia. Normal small intestine. There are multiple colonic diverticula consistent with diverticulosis. There is non-visualization of the appendix. There is diffuse atherosclerotic calcification of the abdominal aorta, without a demonstrated aneurysm. Normal inferior vena cava. Normal retroperitoneum. Normal urinary bladder. There are prostatic calcifications. There is no free fluid in the abdomen or pelvis. Normal abdominal wall. Degenerative change of the spine and hips CT/Abdomen/Pelvis without Cont IMPRESSION: Colonic diverticulosis. No obstruction or abscess. Electronically Signed: Jamie Rice MD at 16:46 EST , Service support ,
--- NOTE | 2018-06-23 15:52 | CT_ITS ---
STUDY: CT LUMBAR SPINE WITHOUT CONTRAST REASON FOR EXAM: Male, 83 years old. Low back pain RADIATION DOSAGE (If Supplied By Facility): CTDIvol = ( 13.89 ) mGy, DLP = ( 1205.06 ) mGycm TECHNIQUE: The patient was scanned in a multi detector CT scanner. High resolution transaxial imaging was performed. Images were obtained from T12 to sacrum. Sagittal and coronal images were reconstructed. Individualized dose optimization techniques were used for this CT. COMPARISON: June 24, 2016 FINDINGS: Normal lumbar lordosis. There is no substantial scoliosis. Normal vertebrae of the lumbar spine. There is no demonstrated compression deformity or fracture of the visualized lumbar vertebrae. L1-2: Mild anterior spurring. Disc bulge. Normal bilateral facet joints. Normal central canal and bilateral lateral recesses. Normal bilateral intervertebral neural foramina. L2-3: Disc bulge with spurring flattening thecal sac. Facet spurring and ligamentum flavum hypertrophy. Moderate canal stenosis. Bilateral foraminal narrowing. L3-4: Disc bulge with mild spurring. Mild facet spurring. Canal borderline in size. Neural foramina are patent L4-5: Disc bulge flattening the thecal sac. Facet spurring and ligamentum hypertrophy. Mild canal stenosis. Left greater right foraminal narrowing. L5-S1: Disc space narrowing. Disc bulge and spurring flattening the thecal sac. Left greater than right foraminal narrowing. Facet spurring. Normal visualized paraspinous soft tissue structures. CT/Spine Lumbar without Contrast IMPRESSION: Multilevel degenerative changes, as described above. No acute fracture seen. Electronically Signed: Jamie Rice MD at 16:50 EST , Service support ,
== END ==
PROVIDERS: Family Provider Internal Medicine; PCP Internal Medicine; Referring Provider Internal Medicine; Visit Provider Internal Medicine
DX: M54.5 Low back pain (principal); R10.9 Unspecified abdominal pain
CPT/HCPCS: 72131; 74176

== ENCOUNTER 2018-07-01 11:00 | Outpatient (RCR) | payer MEDICARE, BC, SELFPAY ==
--- NOTE | 2018-06-17 11:09 | HP.PTEVAL_ITS ---
Patient's Visit Information ANTONETTE HARRIS is a 83 year old M referred to Physical Therapy by Samia Dominguez MD with a diagnosis of LBP with radiculopathy. Date of Evaluation: 06/17/18 Physical Therapist: Ashok Nolasco, DPT, OCS, CSCS - Visit Plan Frequency: 3x /Week Duration: 2-4 Weeks Plan: 3x/week for 2-4 weeks for>. 1. STM/TP to L T/s paraspinals. 2. US thermal to same. 3. TENS and MH to same as needed. 4. Gradual ROM progression(t/s rotation adn ext/flexion) spine and progress strength to tolerance via HEP - Subjective Findings: LBP started a couple weeks ago just sitting in car LBP suddenly and R leg tingles at times usually sitting.Constant LBP to 6/10 this am, feels OK getting up but then worsens. Lying down is OK and sleeping well most times. H/o muscle spasms in back but not disc problems...this feels different. This pain makes it hard and miserable to go to bathroom and clean self. Comfortable sitting. Transitions hurt but walking seem to work it out. Hasn't coughed or sneezed , no bowel or bladder problems. - Pain LBP Pain Intensity (Out of 10): 6 Pain Intensity Range: 2, 7 - Objective Rotate to the right(knees to left) spine is very limited adn painful. Ext mod limited, flexion mod limited adn L SB limited greater than R in multi segmental L/S AROM. Tender to touch thoracic L paraspinals with obvious know around T10 and very tender to touch. reflexes legs 2/3 patella and achilles an. Sensation WNl to gross light touch in LE. Strength LE 4/5 without pain. - slump and SLR tests. repeated L t/s rotation improves motion quickly after STM. Walks I but very stiff and not alot of rotation. - Goals Goal 1:: Stadn up tall and walk with approp rotation into PT I. Goal Time Frame: 2-4 Weeks Goal 2:: Pain 0 /10 at rest adn 1/10 at worst Goal Time Frame: 2-4 Weeks Goal 3:: Pt feel 90% better adn back to normal activities at home Goal Time Frame: 2-4 Weeks Goal 4:: I approp HEP to minimize future problems. Goal Time Frame: 2-4 Weeks - Rehabilitation Potential Physical Therapy Diagnosis: LBP, muscular vs discal. Rehabilitation Potential: Fair - Anticipated Interventions Patient/Client Instruction: Educate patient on: Condition, Plan of Care For the Purpose of:: To decrease pain, To increase ROM, To improve nutrient delivery to tissue, To increase tolerance to activity/condition/position Therapeutic Exercise to Include: Strength training, Flexibilty training, Passive ROM, Active ROM, Dynamic Lumbar Stabilization For the Purpose of:: To decrease pain, To increase ROM, To improve nutrient delivery to tissue, To increase tolerance to activity/condition/position, To improve ability of physical actions for home/community/work/leisure Manual Therapy Techniques to Include: Trigger point massage, Passive ROM, Soft tissue mobilization For the Purpose of:: To decrease pain, To increase ROM, To improve nutrient deli very to tissue TENS: Yes Thermo therapy (hot pack): Yes Ultrasound (thermal/non thermal): Yes - thermal L T/S paraspinals For the Purpose of:: To decrease pain Thank you for the opportunity to evaluate your patient. For Medicare and Medicare HMO plans, please review the plan of care and approve it. It will need to be FAXED BACK to us at [phone] for Medicare purposes. For Medicare only, by signing this I certify the plan of care. Please let me know if there are questions or concerns regarding this plan of care. Physician Signature: Date:
--- NOTE | 2018-07-01 11:38 | HP.PTDCSUM ---
HP - PT D/C Summary It has been my pleasure to treat ANTONETTE HARRIS under orders from Samia Dominguez MD, for the diagnosis of LBP with radiculopathy for a total of 6 visit(s). Discharge Date: 07/01/18 Please see the following information for a summary of their discharge status. - Subjective Subjective: Feeling better. Not hurting anymore. No pain lately. No pain in since weekend. Activities are pretty normal. Sleeping well. Doing shoulder adn back exercises at home. - Pain LBP Pain Intensity (Out of 10): 0 - Overall Improvement % Improvement: 100 - Objective Objective/Function: Stiff in L/S ext mod centrally and flexion minimally centrally, otherwise feels good in neutral. Walks normal and steps are normal. OVERALL DOING WONDERFUL - Goals Goal 1:: Stadn up tall and walk with approp rotation into PT I. Goal Progress: Goal Met Goal 2:: Pain 0 /10 at rest adn 1/10 at worst Goal Progress: Goal Met Goal 3:: Pt feel 90% better adn back to normal activities at home Goal Progress: Goal Met Goal 4:: I approp HEP to minimize future problems. Goal Progress: Goal Met - Plan Plan: D/C - D/C Information Discharge Comments: Pain is gone and pt will inform doctor if it returns. If there are questions or concerns regarding this patient's physical therapy, please feel free to call me at [phone]. Thank you for the referral of this patient. Sincerely, Ashok Nolasco, DPT, OCS, CSCS
== END 2018-07-01 19:00 | disposition home or self-care (01) ==
LOC: PT 11:00
PROVIDERS: Family Provider Internal Medicine; PCP Internal Medicine; Referring Provider Internal Medicine; Visit Provider Internal Medicine
DX: M54.16 Radiculopathy, lumbar region (principal); M51.26 Other intervertebral disc displacement, lumbar region
CPT/HCPCS: 97014; 97032; 97035; 97110; 97161; G0283

== ENCOUNTER → 2018-08-31 07:59 | Outpatient (CLI) | payer MEDICARE, BC, SELFPAY ==
[2018-08-31 08:56] LABS: Absolute Lymphocyte Count 1.55 X10^3/ul (0.83-4.51); Absolute Neutrophil Count 2.8 X10^3/uL (2.0-7.7); Basophil# 0.01 X10^3/uL; Basophil% 0.2 % (0-1); Eosinophil# 0.08 X10^3/uL; Eosinophils% 1.7 % (0-5); Hematocrit 42.1 % (40-54); Lymphocyte # 1.55 X10^3/ul (4.0); Mean Corp Hgb Conc 33.3 g/gl (32-36); Mean Corpuscular Hgb 29.5 pg (27.0-32.0); Mean Corpuscular Volume 88.6 fL (80-94); Mean Platelet Vol. 9.7 fl (6.2-12.0); Monocyte# 0.41 X10^3/uL; Monocyte% 8.5 % (0-10); Neutrophil # 2.79 X10^3/uL (2.7-7.7); Neutrophil % 57.6 % (47-70); Platelet Count 152 K/mm3 (150-450); RBC Distribution Width CV 13.1 % (11.6-14.6); RBC Distribution Width SD 41.9 fl (35.1-43.9); Red Blood Count 4.75 M/mm3 (4.6-6.2); White Blood Count 4.8 K/mm3 (4.4-11.0)
[2018-08-31 08:58] LABS: POSITIVE COUNT NO; POSITIVE DIFFERENTIAL NO; POSITIVE MORPHOLOGY NO
[2018-08-31 09:02] LABS: Color, Urine Yellow (Yellow); Glucose, Dipstick Normal (Normal); Ketone-Dipstick Negative (Negative); Leukocyte Esterase-Dipstick 25 /ul (Negative); Nitrite-Dipstick Negative (Negative); Occult Blood-Urine Negative /ul (Negative); Protein-Dipstick Negative (Negative); Urine Bilirubin Dipstick Negative (Negative); Urine Clarity Sl. Cloudy (Clear); Urine Urobilinogen Normal (Normal)
[2018-08-31 09:28] LABS: ALB/GLOB Ratio 0.9 RATIO (0.9-2.4); AST(SGOT) 23 U/L (15-37); Alanine Aminotransfer ALT/SGPT 33 U/L (16-61); Albumin, Serum 3.6 g/dL (3.2-5.0); Alkaline Phosphatase 62 U/L (45-117); Anion Gap 3 (5-15); BUN 15 mg/dL (7-18); Calcium,Total 8.8 mg/dL (8.5-10.1); Chloride 107 mmol/L (98-107); Cholesterol 154 mg/dL (200); EST Glomerular Filtration Rate 76 mL/min (>60); Est Glom Filt Rate - Afr Amer 92 mL/min (>60); Globulin 3.9 g/dL (2.2-4.2); Glucose 96 mg/dL (74-106); High Density Lipoprotein 38 mg/dL; Potassium 4.1 mmol/L (3.5-5.1); Protein, Total 7.5 g/dL (6.4-8.2); Sodium Level 141 mmol/L (136-145); Triglycerides 120 mg/dL; Very Low Density Lipoprotein 24 mg/dL (5-40)
[2018-08-31 09:29] LABS: Microalbumin,Random Urine 9.1 mg/L (NO RANGE EST.); Microalbumin:Creatinine Ratio 5.4 mg/g CRE (<30 mg/g CRE)
== END ==
PROVIDERS: Family Provider Internal Medicine; PCP Internal Medicine; Referring Provider Internal Medicine; Visit Provider Internal Medicine
DX: I10 Essential (primary) hypertension (principal); E78.2 Mixed hyperlipidemia
CPT/HCPCS: 36415; 80053; 80061; 81002; 82043; 82570; 85025

== ENCOUNTER 2018-09-23 07:19 | Inpatient (IN) | payer MEDICARE, BC, SELFPAY ==
--- NOTE | 2018-08-27 09:15 | PCM.HP.BLA ---
History and Physical DATE OF SURGERY: 09/23/2018 SCHEDULED PROCEDURE: left anatomic total shoulder arthroplasty versus reverse total shoulder arthroplasty HISTORY OF PRESENT ILLNESS: Preoperative history and physical exam was performed on August 26, 2018. This is an 83-year-old male who is been having ongoing pain in his left shoulder for several years. Patient previously underwent a left shoulder arthroscopy with subacromial decompression, biceps tenotomy, humeral head debridement in March [address] Edward Serrano. Patient has had increased pain in the left shoulder. Patient states he did receive some relief from the arthroscopic procedure but the pain is progressively increased throughout the winter. Pain has awakened him at night. He feels his range of motion has been significantly affected over the past several months. He does complain of weakness. Patient has been through conservative measures consisting of physical therapy and oral medications. Despite previous surgery and conservative measures patient continues to have ongoing pain in the left shoulder. After discussion with Dr. Anmol Fisher, the patient wishes to proceed with a left anatomic total shoulder arthroplasty versus reverse total shoulder arthroplasty. Patient currently denies any chest pain, shortness of breath, fevers chills, recent infections. Patient does have medical history pertinent for hypertension, coronary artery disease, previous heart catheterization. Patient follows Dr. Avina his dye range tender. He is currently on a baby aspirin. Patient's primary care physician recently ordered lab work as well as EKG. We are obtaining surgical clearance from his primary care physician and dye range tender. We will follow recommendations for stopping the aspirin prior to surgery. REVIEW OF SYSTEMS: ROS: Const: Reports anxiety, difficulty sleeping, but denies anorexia, change in appetite, fever and weight change. CV: Reports Mitro Valve Prolapse but denies chest pain, heart murmur, irregular heartbeat and peripheral vascular disease Resp: Reports sleep apnea, but denies asthma, cough, pneumonia, shortness of breath, tuberculosis and wheezing. GI: Reports heartburn, but denies constipation, diarrhea, nausea, rectal itching, bloody stools and vomiting. : Denies incontinence. Musculo: Reports weakness, but denies leg swelling, pain and trouble walking. Skin: Denies Raynaud's, history of shingles and tattoo. Neuro: Reports tremor but denies ambulatory dysfunction, dizziness and numbness/tingling. Psych: Reports anxiety and depression, but denies insomnia, mental illness and stress. Giovani/Lymph: Denies anemia, bleeding/bruising tendency and past transfusion. Reviewed and updated. PAST MEDICAL HISTORY: Advance Care Plan: Other Directive, POA Effective Date: 06/02/2018 Other Directive, LIVING WILL Effective Date: 06/02/2018 PMH: Medical Problems: Arthritis, High Blood Pressure, Coronary Artery Disease (CAD), Hypercholesterolemia, Mitro Valve Prolapse Accidents: None Surgical Hx: Appendectomy - 1963 [place] Gallbladder - 1963 [place] Kidney Stones - 1976 [place] Heart Cath - 1987 Carpal Tunnel - RT-1984 [place] Rt. shoulder mass - 2004 [facility]throsc[facility] LT - (09/08/2008) W/ ACROMIOPLASTY DR. MCNULTY, [facility] LT Shoulder Arthroscopy - (04/23/2018) MSK @ [facility] Anesthesia Complications: None Assistive Devices: Glasses, Hearing Aid, Dentures - UPPER, Bpap Reviewed and updated. SOCIAL HISTORY: SH: Marital: .Occupation: Retired.Work Status: Retired.Hand Dominance: Right-handed. Personal Habits: Smoking: Patient is a former smoker.Cigarette Use: Former - 2 pack daily.Smokeless Tobacco: Never Used Smokeless Tobacco.E-Cigarette Use: Never used.Alcohol: Denies use.Drug Use: Denies Use.Enjoy Exercising: Daily. Reviewed and updated. VITALS: Ht: 67 Wt: 201lb Wt k.174 BMI: 31.5 BP: 135/86 Pulse: 70 Resp: 20 T: 96.6 T: 35.9C ALLERGIES: Penicillins - hives and swelling Prednisone - jittery-very uneasy feeling Ketoconazole - jittery very uneasy feeling Vicodin Codeine MEDICATIONS: Lexapro 15 mg 1 PO q day, Aspirin 81 mg 1 po qday, Prilosec 20 mg 1 po qday, Primidone 25 mg 1po qhs, Vitamin D 2000 Unit 1 by mouth every day, Amlodipine Besylate 5 mg 1/2po qday, Lutein 6 mg 1po qday, Reliv Nutrition Products tad PRE-OP EXAM: General appearance:NORMAL Other: Eyes: Conjunctivae and lids: NORMAL Pupils: ERR Ears, Nose, Mouth, and Throat: NORMAL Other: Inspection of lips, teeth and gums: NORMAL Other: Neck: Examination of neck: no masses noted. Respiratory: Assessment of respiratory effort: NORMAL Other: Auscultation of lungs: clear to auscultation no wheezes, rhonchi or rales. Cardiovascular: Auscultation of heart: regular rate and rhythm, positive systolic murmur. Gastrointestinal: Exam of abdomen: soft, nontender, nondistended bowel sounds present. PHYSICAL EXAMINATION: On exam of the left nondominant shoulder, previous incisions are well healed without signs of erythema or infection. There is no appreciable atrophy. Range of motion shoulder: Forward elevation 140 on the right and 130 on the left, internal rotation T7 on the left and T10 on the right, external rotation 25 on the right and 20 on the left. Positive crepitus with range of motion. Supraspinatus strength 5/5, internal/external rotation 5/5. Sensation intact to light touch. Neurovascularly intact. IMAGING STUDIES: Previous x-rays of the left shoulder reveal well aligned acromial clavicular joint and glenohumeral joint. Joint space narrowing with osteophyte formation on the glenoid and humeral head. Axillary view reveals central wear pattern. This is consistent with moderate to severe glenohumeral osteoarthritis. IMPRESSION: 1. 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 Hypertension 3. Coronary artery disease 4. Previous heart catheterization 5. Hypercholesterolemia 6. Mitral valve prolapse PLAN: Dr. Anmol Fisher did discuss and review with the patient all treatment options including surgical versus nonsurgical options. Patient does wish to proceed with the above-stated procedure. Potential risks, benefits, and complications of the procedure were discussed in detail including but not limited to , infection, nerve and blood vessel damage, persistent pain, numbness, tingling, paresthesias, blood clot, pulmonary embolism, and requirement for possible further surgery. The patient expressed full understanding and has no further questions for the doctor. Patient does agree to proceed with the above-stated procedure and has signed the surgery consent form. We are obtaining surgical clearance from patient's primary care physician and dye range tender. We will stop the aspirin according to recommendations per the dye range tender. This dictation was created using voice recognition software. Phonetic and/or grammatical errors may exist.. ___ I have re-examined the patient. There are no clinical changes since date of exam. ___ See progress notes for changes. ___ Dictated on admission Date: Time: Signature:
[2018-09-14 10:45] VITALS: BP 137/77; PULSE 71; RESP 16; TEMP 36.4; O2SAT 95; BMI 31.0
[2018-09-23] VITALS (14 sets, daily range): BP systolic 133–155; BP diastolic 71–92; PULSE 62–108; RESP 16–18; TEMP 36.1–36.8; O2SAT 93–99; BMI 31.0; BMI 31.8
[2018-09-23] MEDS: oxyCODONE HCl Cr 10 MG Tablet PO (08:05)
[2018-09-23] MEDS: Acetaminophen 500 MG Tablet 1000 MG PO ×2 (08:05→22:20)
--- NOTE | 2018-09-23 10:54 | PCM.OPRPT ---
Report of Operation Date of Procedure: 09/23/18 Pre-Operative Diagnosis: Left shoulder primary Osteoarthritis Post-Operative Diagnosis: Left shoulder primary osteoarthritis. Attritional rotator cuff tendinopathy Surgery/Procedure Performed:: Left reverse total shoulder replacement Description of Surgical Findings:: Stable shoulder slipper maker: Kj Baker Type of Anesthesia:: General Anesthesiologist: Maximiliano Purcell Special Medications: 600 mg clindamycin, IV vancomycin during the case, 2 g TXA lavage at completion of case, 10 mg Decadron, joint cocktail (5 mg Duramorph, 30 mL of 0.5% Ropivicaine, 1000 units of epinephrine, 30 mg of Toradol) Specimen's removed: Bony cuts Estimated Blood Loss (mL): 100 Fluids Replaced: 1000 L crystalloid Description of Procedure: Components used 1. [place] glenoid baseplate 2. [place] 32, +6 mm Glenosphere 3. [place] 32 mm, 4mm humeral liner 4. [place] reverse TSA humeral adapter tray 4mm 5. Michelle humeral stem primary optimal press-fit 14mm size Brief history/Operative indications: 83 yo m with history of L shoulder pain and osteoarthritis. Patient failed conservative measures as mentioned in the H&P. After discussion of risk and benefits of reverse total shoulder replacement including but not limited to blood loss, DVTs, PEs, nerve vessel damage, infection, general risk of anesthesia including loss of life, instability and stiffness patient demonstrating understanding wish to proceed was able to sign informed consent. Medical clearance was obtained. Procedure: On the date of the procedure, patient's l upper extremity was marked in the preoperative area. Patient was taken back to the operating room where they were placed on the table in the supine position. Anesthesia assumed control of the C-spine and airway, then administered anesthetic. All bony prominences were identified well-padded, the head was secured and the patient was placed in the beachchair position at about 35? inclination. Anesthesia remained in control of the C-spine airway throughout the remainder of the procedure. Patient was then appropriately fastened to the table and the l upper extremity was prepped in a sterile fashion. The surgeons then scrubbed. Upon reentering the room, the l upper extremity was draped in a sterile fashion and the incision was marked out. Timeout was called, everyone agreed upon the side, the site, the procedure to be performed, patient identity and antibiotics given. Incision was taken down through skin and subcutaneous tissue, fat down to fascia. The stripe of the deltopectoral interval and cephalic vein were identified and blunt dissection was used to retract the deltoid. The cephalic vein was retracted laterally. Clavipectoral fascia was then incised and a cobra retractor was placed in the wound. The proximal one third of the pectoralis major insertion was released. Pectoralis tendon insertion was used to tenodesed the biceps tendon which was identified in the bicipital groove. Tenodesis was done with #1 Vicryl. Proximally we followed the biceps tendon after transecting it into the rotator interval. The rotator interval was split and the arm was externally rotated. At this time we closely examined the rotator cuff. There was attritional changes partial-thickness tearing. We elected to proceed with a reverse total shoulder replacement. The subscapularis was taken down with a subscapularis peel. Subscapularis tendon was released. We released down the anterior portion of the humeral head and a whiting elevator was used to release the inferior portion of the humeral head. The arm was externally rotated and the shoulder was dislocated. The humeral head cutting guide was used to make humeral cut. This was done at 20? retroversion. Once his humeral head cut was made humerus was retracted out of the way and the glenoid was exposed. After exposing the glenoid, the labrum and the remaining proximal biceps were debrided. At this time we are able to view the entire outer edge of the glenoid. A central pin was placed we sequentially reamed over this central pin to 32 mm. Once this was completed the central pedicle was drilled. The glenoid baseplate was impacted into place. Wound was closely irrigated out with normal saline we then drilled sequentially for 4 screws. Screws were placed superiorly and inferiorly and tightened down the screws. Then anteriorly and posteriorly. Once the screws were appropriately tightened into place the glenoid baseplate was compressed against the exposed subchondral bone. Locking caps were placed and a 32, +6mm glenosphere was impacted into place engaging the Guevara taper. The central screw was then tightened into place. Attention was then turned towards the humerus. The humerus was again externally rotated exposing the proximal portion of the humerus. Central canal finder was then used to open up the canal. We reamed to a 32mm reamer. We then broached to a 14mm stem. We trialed the 4mm liner, with the 4mm humeral baseplate. We obtained an adequate reduction at this time with a nice stable shoulder. Good internal rotation to the gluteus, forward elevation to 140?, external rotation to 20?. Final components were then assembled on the back table, trials were removed and the wound was copiously irrigated with normal saline after dislocating the shoulder. Once the final components were assembled they were impacted into place. Shoulder was then reduced and found to be stable with good range of motion. Subscapularis tendon was repaired with #2 FiberWire. The wound was then copiously irrigated out with a 1 min irricept lavage followed by a 1 L normal saline lavage. The deltopectoral fascia was then closed using #1 Vicryl skin was closed using 2-0 Vicryl interrupted sutures and final skin closure was done with 3-0 Monocryl. Steri-Strips are placed for final skin closure. Sterile dressing was placed patient was then placed in a sling and awakened by anesthesia. Patient was then transferred to the PACU for recovery. Postoperative plan: Patient will be admitted to the hospital overnight. They will get physical therapy starting in 2 weeks with normal postoperative regimen. Patient will be placed on aspirin for DVT prophylaxis. The first postoperative appointment will be in 2 weeks for wound check and initiation of phase 1 physical therapy. Grafts/Implants Used: Vin reunion optimal length stem - Complications None - Admit VTE Documentation VTE Present on Admission: No VTE Mechan Device Prophylaxis: SCD's, Knee High HAZEL Hose VTE Pharm Prophylaxis ordered?: Yes
[2018-09-23] MEDS: Lactated Ringers 1,000 ML 999 ML IV (11:44)
[2018-09-23] MEDS: Lactated Ringers 1,000 ML 100 ML IV ×2 (11:45→22:25)
--- NOTE | 2018-09-23 11:45 | RAD_ITS ---
STUDY: X-RAY - LEFT SHOULDER REASON FOR EXAM: Postoperative. TECHNIQUE: 2 view(s) of the shoulder. COMPARISON: None. FINDINGS: There is a reverse shoulder arthroplasty without evidence of complication. There is acromioclavicular arthrosis. Normal acromion. There is mild postoperative soft tissue gas. There is atelectasis at the left lung base. RAD/Shoulder min 2 Views IMPRESSION: Uncomplicated reverse shoulder arthroplasty. Electronically Signed: Anton Venegas MD at 12:48 EDT Tel , Service support ,
[2018-09-23] MEDS: Scopolamine 1mg/72hr Patch 1 PATCH TD (11:54)
--- NOTE | 2018-09-23 15:15 | PCM.PN.HOSP ---
Subjective: Consult for medical management: 83-year-old male with past medical history of CAD, hypertension, hyperlipidemia who is postop day #1 status post left shoulder reverse arthroplasty. Patient has long-standing left shoulder pain, and had a left shoulder arthroplasty done in March 2018 and continued to have increased shoulder pain with associated difficulty in performing activities of daily living. He had complained of pain worse at night and unresponsive to conservative management. He had surgery done today with no complication. His was at the bedside. Patient said his pain is controlled, denies any fever or chills. He complains of left first and second fingers tingling and numbness from nerve block. He was also found to be STOP-BANG positive and on continuous pulse ox. His vitals show temperature of 97.4F, heart rate of 80, blood pressure 145/72, respiratory rate is 16, SPO2 is 96% on room air. His last blood work on 08/31/18 was unremarkable. X-ray of the shoulder postop shows uncomplicated reverse shoulder arthroplasty. Vitals/I&O's: Vital Signs Temp Pulse Resp BP Pulse Ox 98.2 F 86 18 154/86 H 95 09/23/18 13:49 09/23/18 13:49 09/23/18 13:49 09/23/18 13:49 09/23/18 13:49 Oxygen Delivery Method Room Air Weight: 92.079 kg Body Mass Index (BMI) 31.8 Intake and Output for Last 24 Hours 09/21/18 09/22/18 09/23/18 23:59 23:59 23:59 Intake Total 1300 / 1300 Output Total 100 / 100 Balance 1200 / 1200 General: Alert, Oriented x3, Cooperative, No apparent distress, - - Sitting up comfortably in the chair HEENT: Atraumatic, PERRLA, EOMI, Normocephalic Oral: Moist Mucosa Neck: Supple Lungs: Clear to auscultation, Normal air movement Cardiovascular: Regular rate, Regular Rhythm, Normal S1, Normal S2, No murmurs Abdomen: Bowel Sounds Present, Soft, Non Tender, Non-Distended, No Hepato-splenomegaly Extremities: No edema, - - Left upper extremity in sling, dressing over anterior shoulder is clean and dry. Skin: No rashes Musculoskeletal: No Tenderness to Palpation of Joints or Extremities Lymphatic: No Cervical, Supraclavicular, or Inguinal Adenopathy Neurological: Cranial nerves II-XII grossly intact, Neuro grossly intact - except for decreased sensation over the left upper extremity Psych/Mental Status: Normal Affect, Appropriate Current Medications Acetaminophen (Tylenol) 1,000 mg PO Q8 [facility] Amlodipine Besylate (Norvasc) 2.5 mg PO DAILY [facility] Aspirin (Aspirin) 325 mg PO DAILY@0800 [facility] Enteral Nutritional Formula (Ensure Surgery) 237 ml PO TIDCM [facility] Last Admin: 09/23/18 14:05 Dose: Not Given Escitalopram Oxalate (Lexapro) 5 mg PO DAILY [facility] Escitalopram Oxalate (Lexapro) 10 mg PO QHS [facility] Famotidine (Pepcid) 20 mg PO DAILY [facility] Lactated Ringer's () 1,000 mls @ 100 mls/hr IV .Q10H [facility] Last Admin: 09/23/18 11:45 Dose: 100 mls/hr Clindamycin Phosphate 600 mg/ (Dextrose) 54 mls @ 100 mls/hr IV Q6H [facility] Stop: 09/24/18 04:33 Ketorolac Tromethamine (Toradol) 15 mg IV Q6H PRN PRN PRN Reason: MILD-MOD PAIN (1-5/10) Stop: 09/25/18 09:30 Meloxicam (Mobic) 7.5 mg PO BID [facility] Morphine Sulfate () 2 - 4 mg IV Q2H PRN PRN PRN Reason: SEVERE PAIN (6-10/10) Ondansetron HCl (Zofran) 4 mg IV Q8H PRN PRN PRN Reason: NAUSEA Oxycodone HCl (Oxyir) 2.5 mg PO Q4H PRN PRN PRN Reason: MOD-SEVERE PAIN (4-10/10) Pantoprazole Sodium (Protonix) 20 mg PO DAILY [facility] Pravastatin Sodium (Pravachol) 40 mg PO QHS [facility] Primidone (Mysoline) 12.5 mg PO DAILY [facility] Promethazine HCl (Phenergan) 12.5 mg IM Q6H PRN PRN; Protocol PRN Reason: NAUSEA/VOMITING Senna/Docusate Sodium (Senokot-S, Sharee-Colace) 2 tablet PO BID [facility] Medical Necessity - Tobacco Use Smoking Status: Former smoker Tobacco Use: Non-smoker Assessment/Plan All Active Problems (Last Reviewed 12/30/17 @ 10:16 by Corrie Montiel) H/O colonoscopy (Resolved) Hx of hernia repair (Resolved) H/O vasectomy (Resolved) Hx of cholecystectomy (Resolved) Hx of appendectomy (Resolved) Intractable hiccoughs (Acute) Accelerated essential hypertension (Acute) Benign positional vertigo (Resolved) 83-year-old male with past medical history of CAD, hypertension, hyperlipidemia who comes in with worsening left shoulder pain. He has history of left shoulder arthroscopy done in March 2018 and continued to have increased shoulder pain with associated difficulty in performing activities of daily living. 1. POD #0, status post left total reverse shoulder arthroplasty, pain is fairly controlled, patient is in a sling, continue per orthopedics management 2. Hypertension/hyperlipidemia/CAD/non-rheumatic mitral valve prolapse, stable, continue on amlodipine, pravastatin 3. 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 Anxiety/depression, on Lexapro 5. DVT PPx- on aspirin BID per ortho team Code Visit Inpatient E&M: 03690 Subs Hosp L2
[2018-09-23] MEDS: Ensure Surgery 237 ML LIQUID PO (17:09)
[2018-09-23] MEDS: Pravastatin 40 MG Tablet PO (22:21)
[2018-09-23] MEDS: Senna/Docusate Sodium 1 Tablet 2 TABLET PO (22:21)
[2018-09-23] MEDS: Escitalopram Oxalate 10 MG Tablet PO (22:21)
[2018-09-24 02:30] VITALS: BP 134/69; PULSE 67; RESP 14; TEMP 36.8; O2SAT 96
[2018-09-24] MEDS: Acetaminophen 500 MG Tablet 1000 MG PO (04:53)
[2018-09-24 06:53] VITALS: O2SAT 97
[2018-09-24 08:30] VITALS: BP 140/72; PULSE 74; RESP 16; TEMP 36.7; O2SAT 96
[2018-09-24] MEDS: Aspirin 325 MG Tablet PO (08:52)
[2018-09-24] MEDS: Ensure Surgery 237 ML LIQUID PO (08:55)
[2018-09-24] MEDS: oxyCODONE 5 MG Tablet 2.5 MG PO (09:11)
[2018-09-24] MEDS: Famotidine 20 MG Tablet PO (09:12)
[2018-09-24] MEDS: Meloxicam 7.5 MG Tablet PO (09:12)
[2018-09-24] MEDS: amLODIPine 2.5 MG Tablet PO (09:12)
[2018-09-24] MEDS: Primidone 50 MG Tablet 12.5 MG PO (09:12)
[2018-09-24] MEDS: Senna/Docusate Sodium 1 Tablet 2 TABLET PO (09:12)
[2018-09-24] MEDS: Pantoprazole Sodium 20 MG Tablet PO (09:14)
[2018-09-24] MEDS: Escitalopram Oxalate 10 MG Tablet 5 MG PO (09:14)
--- NOTE | 2018-09-24 09:47 | PCM.PROGNOTE ---
<Antonio Patterson - Last Filed: 09/24/18 09:47> Subjective: Pt seen and examined, resting comfortably in chair upright, NAD. Left arm in sling. Mild pain at rest and with exertion. No numbness tingling in affected extremity. No nausea/vomiting. No fever/chils. Used CPAP last night. No SOB/cough. Pt hoping to go home today. - Physical Exam General: Alert, Oriented x3, Cooperative HEENT: Atraumatic, PERRLA, EOMI, Normocephalic Neck: Supple, No JVD, Negative Carotid Bruits Lungs: Clear to auscultation, Normal air movement Cardiovascular: Regular rate, No murmurs Abdomen: Bowel Sounds Present, Soft, Non Tender Extremities: No edema, Capillary Refill Less than 3 Seconds Skin: No rashes, No breakdown Musculoskeletal: No Tenderness to Palpation of Joints or Extremities, - - LUE PMS intact, in sling. Neurological: Cranial nerves II-XII grossly intact Psych/Mental Status: Normal Affect, Appropriate, Alert and oriented to time, place, person, mood and affect Vital Signs Temp Pulse Resp BP Pulse Ox 98.0 F 74 16 140/72 H 96 09/24/18 08:30 09/24/18 08:30 09/24/18 08:30 09/24/18 08:30 09/24/18 08:30 Oxygen Delivery Method Room Air Weight: 203 lb Body Mass Index (BMI) 31.8 Intake and Output for Last 24 Hours 09/22/18 09/23/18 09/24/18 23:59 23:59 23:59 Intake Total 2137 / 2137 1760 / 1760 Output Total 700 / 700 1825 / 1825 Balance 1437 / 1437 -65 / -65 Medical Necessity - Tobacco Use Smoking Status: Former smoker Tobacco Use: Non-smoker Assessment/Plan All Active Problems (Last Reviewed 12/30/17 @ 10:16 by Corrie Montiel) H/O colonoscopy (Resolved) Hx of hernia repair (Resolved) H/O vasectomy (Resolved) Hx of cholecystectomy (Resolved) Hx of appendectomy (Resolved) Intractable hiccoughs (Acute) Accelerated essential hypertension (Acute) Benign positional vertigo (Resolved) 1. Left total reverse should POD#1 - doing well. Minimal pain. Sling, PTOT as directed per Ortho. Recovering from surgery well. 2. HTN/HLD/CAD/MVP - home meds 3. SASHA - continue CPAP qhs 4. Anx/Depression - lexapro DVT ppx: per ortho Full dose daily aspirin Thank you for the opportunity to participate in the care of this patient. This patient was seen by Antonio Patterson PA-C under the supervision of Doctor Patrick. <Dick Nguyen F - Last Filed: 09/24/18 11:33> - Physical Exam Vital Signs Temp Pulse Resp BP Pulse Ox 98.0 F 74 16 140/72 H 96 09/24/18 08:30 09/24/18 08:30 09/24/18 08:30 09/24/18 08:30 09/24/18 08:30 Oxygen Delivery Method Room Air Weight: 203 lb Body Mass Index (BMI) 31.8 Intake and Output for Last 24 Hours 09/22/18 09/23/18 09/24/18 23:59 23:59 23:59 Intake Total 2137 / 2137 1760 / 1760 Output Total 700 / 700 1825 / 1825 Balance 1437 / 1437 -65 / -65 Code Visit Addendum: Dr. Nguyen I personally examined the patient and reviewed the chart. I agree with the above. 83-year-old male with a history of CAD, HTN, HLD postop day 1 from left shoulder reverse arthroplasty. He is doing well and was cleared for discharge from medical standpoint. All of his chronic medical conditions are stable and no changes were made to his medications. He can see his primary care doctor at any previously scheduled appointment. Inpatient E&M: 85233 Subs Hosp L2
--- NOTE | 2018-09-24 10:04 | PCM.PN.ORT ---
Subjective: The patient was sitting in bed upon examination. Patient denies any chest pain, shortness of breath, dizziness, lightheadedness, nausea or vomiting, or calf pain. Pain is controlled on medications. No adverse overnight events. Overall patient is doing very well today. Pain is been controlled and he is tolerating the UltraSling. Plan is for discharge home today. Objective: Vital signs stable, afebrile Dressing is clean, dry, intact Ultra-sling fitting appropriately Sensation intact to axillary, radial, median, and ulnar distribution Motor intact to AIN, PIN, and ulnar nerve - Physical Exam General: Alert, Oriented x3, Cooperative, No apparent distress Vital Signs Temp Pulse Resp BP Pulse Ox 98.0 F 74 16 140/72 H 96 09/24/18 08:30 09/24/18 08:30 09/24/18 08:30 09/24/18 08:30 09/24/18 08:30 Oxygen Delivery Method Room Air Weight: 92.079 kg Body Mass Index (BMI) 31.8 Intake and Output for Last 24 Hours 09/22/18 09/23/18 09/24/18 23:59 23:59 23:59 Intake Total 2137 / 2137 1760 / 1760 Output Total 700 / 700 1825 / 1825 Balance 1437 / 1437 -65 / -65 Medical Necessity - Tobacco Use Smoking Status: Former smoker Tobacco Use: Non-smoker Assessment/Plan All Active Problems (Last Reviewed 12/30/17 @ 10:16 by Corrie Montiel) H/O colonoscopy (Resolved) Hx of hernia repair (Resolved) H/O vasectomy (Resolved) Hx of cholecystectomy (Resolved) Hx of appendectomy (Resolved) Intractable hiccoughs (Acute) Accelerated essential hypertension (Acute) Benign positional vertigo (Resolved) 1. S/P left reverse total shoulder arthroplasty POD #1 2. Continue Pain Medications: Tylenol and OxyIR 3. DVT Prophylaxis: Aspirin 325 mg once daily for 2 weeks postoperatively 4. PT/OT: Okay to perform range of motion of the left hand, wrist, elbow and pendulum exercises. Continue with UltraSling at all times except to come out for range of motion exercises 3 times daily. Patient will begin formal physical therapy after 2-week follow-up. 5. Encouraged Incentive Spirometry 6. Continue postoperative medical management per medicine: Case was discussed with the hospitalist and plan will be for discharge home today 7. Disposition: Prescriptions will be E scribed to [facility]. Patient will follow-up per postop instructions. Patient has outpatient physical therapy established to begin 2 weeks postoperatively. Patient is orthopedically stable.
--- NOTE | 2018-09-24 10:14 | DCINST_ITS ---
Discharge Diet: No Restrictions Discharge Activity: May Not Drive May shower in (days): 1 - Turn dressing away from water Ice area for (Minutes): 20 - Ice area for 20 minutes each hour while awake Weight Bearing Status: No weight bearing - Left upper extremity, continue with UltraSling. Keep extremity elevated above heart level: Operative Extremity Call your doctor if your incision/area has: Continuous Slow Oozing, Sudden Increased Bleeding, Increased Pain/ Swelling, Increased Redness, Foul Smelling Discharge Call your doctor if you observe: Fever of 101 or Higher, Coldness, Increased Pain, Numbness or Tingling, Change in Color Remove Dressing in (days):: 4 - Okay to remove dressing on September 28, 2018 Additional Instructions: Follow [place] [facility] postop instructions Do not take any other nonsteroidal anti-inflammatories with meloxicam/Mobic Do not take 81 mg aspirin while taking the regular dose 325 mg aspirin Allergies/Adverse Reactions: Allergies clindamycin Allergy (Verified 09/14/18 10:17) Rash Penicillins Allergy (Verified 01/12/18 16:01) Swelling gabapentin Adverse Reaction (Verified 09/14/18 10:17) hiccups hydrocodone bitartrate [From Vicodin] Adverse Reaction (Verified 01/12/18 16:01) Other ketoconazole Adverse Reaction (Verified 01/12/18 16:01) Nausea levofloxacin [From Levaquin] Adverse Reaction (Verified 09/14/18 10:17) severe headache prednisone Adverse Reaction (Verified 09/14/18 10:19) panic attack VICODIN Adverse Reaction (Uncoded 09/14/18 10:19) nervous,agitated Medications to take at Discharge Escitalopram Oxalate [Lexapro] 10 mg PO QHS 01/31/13 Omeprazole [Prilosec] 20 mg PO DAILY 01/31/13 pravastatin 40 mg tablet 40 mg PO QDAY 10/22/17 Amlodipine [Norvasc] 2.5 mg PO DAILY 09/14/18 Cholecalciferol (VIT D3) [Vitamin D3] 1,000 unit PO DAILY 09/14/18 Escitalopram Oxalate [Lexapro] 5 mg PO DAILY 09/14/18 L.acidoph,Paracasei, B.lactis [Probiotic] 1 each PO DAILY 09/14/18 Lutein 6 mg PO DAILY 09/14/18 Primidone 12.5 mg PO DAILY 09/14/18 Reliv Nutrional Drink 1 pkt PO BID 09/14/18 Acetaminophen [Tylenol] 1,000 mg PO Q8 #100 tablet 09/24/18 Aspirin 325 mg PO DAILY@0800 #14 tablet 09/24/18 Meloxicam [Mobic] 7.5 mg PO BID #60 tablet 09/24/18 Oxycodone [Oxyir] 2.5 mg PO Q4H PRN PRN 4 Days #30 tablet 09/24/18 Senna/Docusate Sodium [Senokot-S] 2 tablet PO BID #20 tablet 09/24/18 The following prescriptions were given: Oxycodone [Oxyir] 2.5 mg PO Q4H PRN PRN 4 Days #30 tablet PRN Reason: Mod-Severe Pain (-02/04) Acetaminophen [Tylenol] 1,000 mg PO Q8 #100 tablet Aspirin 325 mg PO DAILY@0800 #14 tablet Meloxicam [Mobic] 7.5 mg PO BID #60 tablet Senna/Docusate Sodium [Senokot-S] 2 tablet PO BID #20 tablet Primary Care Physician: Samia Dominguez MD [Primary Care Provider] - Test Results: Test results from this visit will be discussed in further detail at your follow- up appointment, if applicable. Please Follow Up With: Jace Jones PA-C When: 10/08/18 @ 3:45 am
--- NOTE | 2018-09-24 11:05 | CASEMGMT ---
RN CM JUNIOR WEB DESIGNER CM to room to meet with patient for initial transition planning/care coordination assessment. RN DEANA introduced self and role at [facility]. Pt voices understanding and consents to assessment at this time. Pt sitting up in chair beside bed in no distress at this time. in room with pt. Pt is A/O at this time and answers all questions appropriately. Care providers, pharmacy, and demographics verified/updated at this time. PCP: Dr Dominguez Specialists: Kailyn-cardiology, Phillip--ortho, Lizett- opthamology. Has appt w/HUANG Neves, 10/08 @ 3:45 PM. Pt and aware. Preferred Pharmacy: [facility] Retail Insurance: [place] DOWNEY Prescription Benefit: [employer] Living Will/HPOA: has both LW and HCPOA, who is his , Brooke. Pt and made aware they are not on file @ [facility]. LNOK: Living Arrangements: Lives w/ in one-story home 1 step to enter. States is independent w/personal ADL's. and pt share home mgmt tasks. Transportation: Pt states drives self and states no transportation concerns at this time. able to drive pt home on discharge. DME: has the following DME: rails/grab bars. BPAP. Originally got through [employer]. Has switched over to [employer] now. Pt states no need for further DME at this time. HHC/SNF: No history of either, denies needs, and no needs identified. Pt wishes to return home and states has no concerns with going home at time of discharge. CM to follow for any discharge planning/needs. Pt voices no further concerns/needs at this time. Advised pt to ask for CM if any further questions/concerns/needs arise. Voices understanding. PLAN: Home with spousal support and discharge plans in place. Omid LOZADA RN, CM
[2018-09-24 11:56] VITALS: BP 135/65; PULSE 66; RESP 18; TEMP 36.4; O2SAT 96
== END 2018-09-24 11:54 | disposition home or self-care (01) | DRG 483 ==
LOC: ACINP 07:42 → MS3 12:41
PROVIDERS: Admitting Provider Specialist; Family Provider Internal Medicine; PCP Internal Medicine; Referring Provider Specialist; Visit Provider Family Medicine
PROC: 0RRK00Z Replacement of Left Shoulder Joint with Reverse Ball and Socket Synthetic Substitute, Open Approach (ICD-10-PCS; CPT 23472; principal; 2018-09-23 08:15)
DX: M19.012 Primary osteoarthritis, left shoulder (principal); I25.10 Atherosclerotic heart disease of native coronary artery without angina pectoris; I10 Essential (primary) hypertension; E78.5 Hyperlipidemia, unspecified; I34.1 Nonrheumatic mitral (valve) prolapse; K21.9 Gastro-esophageal reflux disease without esophagitis; G47.33 Obstructive sleep apnea (adult) (pediatric); F32.9 Major depressive disorder, single episode, unspecified; F41.9 Anxiety disorder, unspecified; Z79.82 Long term (current) use of aspirin; Z79.899 Other long term (current) drug therapy; Z87.891 Personal history of nicotine dependence
CPT/HCPCS: 73030; 87081; 97166; 97535; 99251; C1776; J7040; J7120; G0463; J2405

== ENCOUNTER → 2018-11-17 13:11 | Outpatient (CLI) | payer MEDICARE, BC, SELFPAY ==
[2018-10-30 08:42] VITALS: BMI 31.1
[2018-11-17 13:20] LABS: Bacteria 0 SEEN /hpf (None Seen); Mucous, Urine 0 SEEN /hpf (<or=2+); Red Blood Cells-Urine 0 SEEN /hpf (0-5); Squamous Epithelial Cells - UA 0 SEEN /hpf (0-5); White Blood Cells 0 SEEN /hpf (0-5)
--- NOTE | 2018-11-17 13:29 | CT_ITS ---
STUDY: CT BRAIN WITHOUT CONTRAST REASON FOR EXAM: Male, 83 years old. Severe headache RADIATION DOSAGE (If Supplied By Facility): CTDIvol = ( 60.81 ) mGy, DLP = ( 1044.28 ) mGycm TECHNIQUE: Transaxial CT imaging of the brain was performed without administration of intravenous contrast material. Individualized dose optimization techniques were used for this CT. COMPARISON: 2013 FINDINGS: Normal soft tissue structures. Normal calvarium. Normal size ventricles and extra-axial spaces for the patient's age. Normal white matter tracts of the cerebral hemispheres. Normal basal ganglia and thalami. Normal brainstem. Normal cerebellum. There is no intracranial hemorrhage. There are no findings of an acute ischemic infarction. Normal visualized paranasal sinuses. CT/Brain/Head without Contrast IMPRESSION: Chronic involutional changes of the brain. No acute hemorrhage Electronically Signed: James Mack MD at 13:47 EDT , Service support ,
[2018-11-17 13:39] LABS: Erythrocyte Sedimentation Rate 6 mm/hr (0-20); Hematocrit 42.1 % (40-54); Hemoglobin 14.2 g/dL (13.0-16.5); Mean Corp Hgb Conc 33.7 g/dL (32-36); Mean Corpuscular Hgb 30.3 pg (27.0-32.0); Mean Corpuscular Volume 89.8 fL (80-94); Mean Platelet Vol. 9.6 fl (6.2-12.0); Platelet Count 165 K/mm3 (150-450); RBC Distribution Width CV 12.6 % (11.6-14.6); RBC Distribution Width SD 41.3 fl (35.1-43.9); Red Blood Count 4.69 M/mm3 (4.6-6.2); White Blood Count 5.5 K/mm3 (4.4-11.0)
[2018-11-17 13:47] LABS: ALB/GLOB Ratio 0.9 RATIO (0.9-2.4); AST(SGOT) 20 U/L (15-37); Alanine Aminotransfer ALT/SGPT 29 U/L (16-61); Albumin, Serum 3.8 g/dL (3.2-5.0); Alkaline Phosphatase 76 U/L (45-117); Anion Gap 2 (5-15); BUN 17 mg/dL (7-18); BUN/Creat Ratio 16.5 RATIO (10-20); Calcium,Total 9.1 mg/dL (8.5-10.1); Chloride 104 mmol/L (98-107); Creatinine, Serum 1.03 mg/dL (0.70-1.30); EST Glomerular Filtration Rate 73 mL/min (>60); Est Glom Filt Rate - Afr Amer 89 mL/min (>60); Globulin 4.1 g/dL (2.2-4.2); Glucose 99 mg/dL (74-106); Protein, Total 7.9 g/dL (6.4-8.2); Sodium Level 137 mmol/L (136-145)
[2018-11-17 14:12] LABS: Color, Urine Yellow (Yellow); Glucose, Dipstick Normal (Normal); Ketone-Dipstick Negative (Negative); Leukocyte Esterase-Dipstick Negative /ul (Negative); Nitrite-Dipstick Negative (Negative); Occult Blood-Urine Negative /ul (Negative); Protein-Dipstick Negative (Negative); Urine Bilirubin Dipstick Negative (Negative); Urine Clarity Clear (Clear); Urine Urobilinogen Normal (Normal)
== END ==
PROVIDERS: Family Provider Internal Medicine; PCP Internal Medicine; Referring Provider Internal Medicine; Visit Provider Internal Medicine
DX: I10 Essential (primary) hypertension (principal); R51 Headache
CPT/HCPCS: 36415; 70450; 80053; 81001; 85027; 85652

== ENCOUNTER 2018-12-17 13:30 | Outpatient (RCR) | payer MEDICARE, BC, SELFPAY ==
[2018-09-23 13:42] VITALS: BMI 31.8
--- NOTE | 2018-10-08 12:01 | HP.PTEVAL_ITS ---
Patient's Visit Information ANTONETTE HARRIS is a 83 year old M referred to Physical Therapy by HUANG Deras with a diagnosis of L shoulder replacement. Date of Evaluation: 10/08/18 Physical Therapist: Ashok Nolasco DPT, OCS, CSCS - Visit Plan Frequency: 2-3x /Week Duration: 3 Months Plan: 2-3x/weeek for 8-12 weeks as needed. (see sample protocol). PROM to 120 flexion , PROM progress to aARM as tolerated. Eventual strength adn AROM. ice as needed. Educated on management of condition. - Subjective Findings: L reverse TSA on 09/23/18. This was due to shoulder pain and rotator cuff not strong enough. Had arthroscopic clean out last March. Pain and difficulty moving L shoulder as it would lock up. Is R handed. Sleeping well in recliner last two weeks. Sees doctor this afternoon. Sleeps well. In sling with abductor wedge except for ex adn shower. Doing hand movements and elbow movements at home and pendulum hang. Doing Ok with those. helps him bathe under L arm. Pain is not bad but down humerus when walking around at store alot. pain is upper L arm 6/10 and gone with relaxation. Worse with walking and riding in car. Dressing requires help from . Cleaning up in bathroom is I. Shower requires some assist. Looking forward to getting back to housework. Wants to be able to move furniture adn buckets if needed. has bad knees and needs more help. Neck is doing OK. - Pain L shoulder Pain Intensity (Out of 10): 0 Pain Intensity Range: 0, 6 - Objective Walks and trasnfers I. Sling with abd wedge on L UE. Dons and doffs with wifes help. tends to hold head forward and scap slightly elevated B. Also L elbow in flexion out of sling. Relaxes nicely with VC to anatomic position and without increased pain. Reviewed IR adn ext precautions. Full hand, elbow AROM, full scap ROM without increased pain B. Neck aROM is limited whcih is normal for this patient but not painful. R shoulder AROM fulla nd painfree. L shoulder PROm flexion to 90, abd to 85 adn ext rotation to neutral , all limited by pain and empty endfeel. Some sharp twinges of pain at end range of flexion and abd and ext rotation. Educated on buttoning buttons and putting on shirt with L UE first and elbow at side. - Goals Goal 1:: AROM 130 flexion adn 45 ext rotation Goal Time Frame: 6-8 Weeks Goal 2:: Strength 4/5 L shoulder adn I in appropriate strength Goal Time Frame: 8-12 Weeks Goal 3:: Feel shoulder back to 90% with no pain. Goal Time Frame: 8-12 Weeks Goal 4:: Activities back to 75% with L UE not limiting walking Goal Time Frame: 8-12 Weeks - Rehabilitation Potential Physical Therapy Diagnosis: L rev TSA Rehabilitation Potential: Fair - Anticipated Interventions Patient/Client Instruction: Educate patient on: Condition, Plan of Care For the Purpose of:: To decrease pain, To improve muscle performance and motor function Therapeutic Exercise to Include: Strength training, Postural training, Flexi bilty training, Passive ROM, Active ROM For the Purpose of:: To decrease pain, To increase ROM, To increase tolerance to activity/condition/position, To improve ability of physical actions for home/community/work/leisure Manual Therapy Techniques to Include: Passive ROM For the Purpose of:: To decrease pain, To increase ROM Cryotherapy (ice pack, ice massage): Yes For the Purpose of:: To decrease swelling/inflammation Thank you for the opportunity to evaluate your patient. For Medicare and Medicare HMO plans, please review the plan of care and approve it. It will need to be FAXED BACK to us at [phone] for Medicare purposes. For Medicare only, by signing this I certify the plan of care. Please let me know if there are questions or concerns regarding this plan of care. Physician Signature: Date:
--- NOTE | 2018-11-04 11:57 | HP.PTREVAL ---
HUANG Deras, It has been my pleasure to treat ANTONETTE HARRIS over the last 9 visits for L shoulder replacement. Please see the progress note below for an update on the physical therapy plan of care! Subjective: Venkata upper arm has been sore since waking up Friday. Was sleeping without sling Friday as Ray at [facility] said he could. Was in a chair. Achiness is constant since then 07/05, 12/05 trasniently if moves wrong. Was doing excellent prior to Friday without much pain at all. To doctor tomorrow. Doing HEP at home doing isometrics and standing stick er and elevation. Objective/Function: 140 AAROM flexion with stick, PROM 130. ext rotation to 40 AAROM. Pain less than expected most of time but achy since Friday. Extension to table in supine is still painful. Plan Plan: f/u with doctor tomorrow. Plan to see 1-2x/week for 4-6 weeks for AAROM, isometrics avoiding hyperext adn IR. May d via HEP depending on doctors f/u tomorrow. Goals Goal 1:: AROM 130 flexion adn 45 ext rotation Goal Time Frame: 6-8 Weeks Goal Progress: Progressing, aAROM met Goal 2:: Strength 4/5 L shoulder adn I in appropriate strength Goal Time Frame: 8-12 Weeks Goal 3:: Feel shoulder back to 90% with no pain. Goal Time Frame: 8-12 Weeks Goal Progress: Progressing Goal 4:: Activities back to 75% with L UE not limiting walking Goal Time Frame: 8-12 Weeks Goal Progress: Progressing Anticipated Interventions Patient/Client Instruction: Educate patient on: Condition, Plan of Care For the Purpose of:: To decrease pain, To improve muscle performance and motor function Therapeutic Exercise to Include: Strength training, Postural training, Flexibilty training, Passive ROM, Active ROM For the Purpose of:: To decrease pain, To increase ROM, To increase tolerance to activity/condition/position, To improve ability of physical actions for home/community/work/leisure Manual Therapy Techniques to Include: Passive ROM For the Purpose of:: To decrease pain, To increase ROM Cryotherapy (ice pack, ice massage): Yes For the Purpose of:: To decrease swelling/inflammation Please do not hesitate to contact me at [phone] by phone or if you have questions or concerns regarding this new plan of care! Sincerely, Ashok Nolasco, DPT, OCS, CSCS
--- NOTE | 2018-12-17 13:53 | HP.PTREVAL ---
Jace Jones PA-C, It has been my pleasure to treat ANTONETTE HARRIS over the last 16 visits for L shoulder replacement. Please see the progress note below for an update on the physical therapy plan of care! Subjective: No pain in shoulder. L neck hurts from stenosis but otherwise doing well. Will see doctor tomorrow. Life is normal at home except weight through arm to be intimate with adn reaching behind him. Objective/Function: 130 flexiona dn abd. 50 ext rotation on L. horiz adduction is 15. IR not tested. Strength is 4- IR adn ext rotation in neutral and 3+ in flexion abd, no pain. Pt doing well overalla nd happy with progress and lack of pain. He is doing well in all aspects but would like, when OK with doctor, to work on IR and WB L UE. Plan to show him this in 2-3 weeks after doctor visit unless otherwise instructed. Plan Plan: f/u 2-3 weeks for IR, WB as tolerated and likely D/C, pt to [facility] fter tomorrow's doctor visit if that plan needs to change. Goals Goal 1:: AROM 130 flexion adn 45 ext rotation Goal Time Frame: 6-8 Weeks Goal Progress: Goal Met Goal 2:: Strength 4/5 L shoulder adn I in appropriate strength Goal Time Frame: 8-12 Weeks Goal Progress: Progressing Goal 3:: Feel shoulder back to 90% with no pain. Goal Time Frame: 8-12 Weeks Goal Progress: Progressing Goal 4:: Activities back to 75% with L UE not limiting walking Goal Time Frame: 8-12 Weeks Goal Progress: Goal Met Anticipated Interventions Patient/Client Instruction: Educate patient on: Condition, Plan of Care For the Purpose of:: To decrease pain, To improve muscle performance and motor function Therapeutic Exercise to Include: Strength training, Postural training, Flexibilty training, Passive ROM, Active ROM For the Purpose of:: To decrease pain, To increase ROM, To increase tolerance to activity/condition/position, To improve ability of physical actions for home/community/work/leisure Manual Therapy Techniques to Include: Passive ROM For the Purpose of:: To decrease pain, To increase ROM Cryotherapy (ice pack, ice massage): Yes For the Purpose of:: To decrease swelling/inflammation Please do not hesitate to contact me at [phone] by phone or if you have questions or concerns regarding this new plan of care! Sincerely, Ashok Nolasco, DPT, OCS, CSCS
--- NOTE | 2018-12-22 11:33 | HP.PTDCSUM ---
HP - PT D/C Summary It has been my pleasure to treat ANTONETTE HARRIS under orders from Jace Jones PA-C, for the diagnosis of L shoulder replacement for a total of 16 visit(s). Discharge Date: Please see the following information for a summary of their discharge status. - Subjective Subjective: No pain in shoulder. L neck hurts from stenosis but otherwise doing well. Will see doctor tomorrow. Life is normal at home except weight through arm to be intimate with adn reaching behind him. - Pain L shoulder Pain Intensity (Out of 10): 0 - Overall Improvement % Improvement: 75 - Objective Objective/Function: 130 flexiona dn abd. 50 ext rotation on L. horiz adduction is 15. IR not tested. Strength is 4- IR adn ext rotation in neutral and 3+ in flexion abd, no pain. Pt doing well overalla nd happy with progress and lack of pain. He is doing well in all aspects but would like, when OK with doctor, to work on IR and WB L UE. Plan to show him this in 2-3 weeks after doctor visit unless otherwise instructed. - Goals Goal 1:: AROM 130 flexion adn 45 ext rotation Goal Progress: Goal Met Goal 2:: Strength 4/5 L shoulder adn I in appropriate strength Goal Progress: Progressing Goal 3:: Feel shoulder back to 90% with no pain. Goal Progress: Progressing Goal 4:: Activities back to 75% with L UE not limiting walking Goal Progress: Goal Met - Plan Plan: Pt called after following up with doctor and stated he does not need any more PT according to doctor adn wishes to be D/Cd. - D/C Information If there are questions or concerns regarding this patient's physical therapy, please feel free to call me at [phone]. Thank you for the referral of this patient. Sincerely, Ashok Nolasco, DPT, OCS, CSCS
== END 2018-12-17 19:00 | disposition home or self-care (01) ==
LOC: PT 13:30
PROVIDERS: Family Provider Internal Medicine; PCP Internal Medicine; Referring Provider Physician Assistant Surgical; Visit Provider Physician Assistant Surgical
DX: Z96.612 Presence of left artificial shoulder joint (principal); Z47.1 Aftercare following joint replacement surgery
CPT/HCPCS: 97110; 97140; 97162; 97530

== ENCOUNTER 2019-01-06 18:46 | Observation (INO) | payer MEDICARE, BC, SELFPAY ==
[2018-10-30 08:42] VITALS: BMI 31.1
[2019-01-06 18:47] VITALS: BP 139/71; PULSE 72; PULSE 73; RESP 16; RESP 18; TEMP 36.8; O2SAT 97; O2SAT 98; BMI 31.0
--- NOTE | 2019-01-06 19:02 | RAD_ITS ---
STUDY: X-RAY CHEST REASON FOR EXAM: Male, 83 years old. Chest pain TECHNIQUE: Single AP portable view of the chest. COMPARISON: None. FINDINGS: shelter monitor leads are present. The lungs are clear and expanded. There is no demonstrated pleural abnormality. Normal size heart. Normal mediastinum and oliver. Normal visualized pulmonary arteries. There are calcified plaques of the aortic arch. There are diffuse degenerative changes of the visualized thoracic spine. 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 There is no demonstrated abnormality of the visualized soft tissue structures of the upper abdomen. RAD/Chest 1 View (Portable) IMPRESSION: 1. Degenerative changes of the thoracic spine. 2. Calcified plaques of the aortic arch. 3. 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 4. No acute cardiac pulmonary disease process is seen. Electronically Signed: Sal Payan MD at 19:24 EDT , Service support ,
--- NOTE | 2019-01-06 19:02 | EKG12_ITS ---
Test Reason : CP Blood Pressure : / mmHG Vent. Rate : 073 BPM Atrial Rate : 073 BPM P-R Int : 186 ms QRS Dur : 088 ms QT Int : 374 ms P-R-T Axes : 024 -20 -14 degrees QTc Int : 412 ms Normal sinus rhythm Minimal voltage criteria for LVH, may be normal variant Borderline ECG Confirmed by KENDY HARRY, ESTEFANI ([id number]), film and video editor RIP RODRIGUEZ ([id number]) on 01/08/2019 11:43:20 AM Referred By: JENNIFER Confirmed By:YASIR LARRY MD
[2019-01-06 19:13] LABS: Absolute Neutrophil Count 3.1 X10^3/uL (2.0-7.7); Basophil# 0.02 X10^3/uL; Basophil% 0.4 % (0-1); Eosinophil# 0.19 X10^3/uL; Eosinophils% 3.4 % (0-5); Hematocrit 40.6 % (40-54); Hemoglobin 13.6 g/dL (13.0-16.5); Mean Corp Hgb Conc 33.5 g/dL (32-36); Mean Corpuscular Hgb 30.2 pg (27.0-32.0); Mean Corpuscular Volume 90.2 fL (80-94); Mean Platelet Vol. 9.8 fl (6.2-12.0); Monocyte# 0.54 X10^3/uL; Monocyte% 9.6 % (0-10); NRBC Flagged by Analyzer 0 % (0-5); Neutrophil # 3.05 X10^3/uL (2.7-7.7); Neutrophil % 54.2 % (47-70); Platelet Count 151 K/mm3 (150-450); RBC Distribution Width SD 39.8 fl (35.1-43.9); White Blood Count 5.6 K/mm3 (4.4-11.0)
[2019-01-06 19:20] VITALS: O2SAT 98
[2019-01-06 19:21] VITALS: BP 135/73; PULSE 65
[2019-01-06] MEDS: Nitroglycerin Oint 1 INCH PACKET TRANSDERM. (19:21)
[2019-01-06 19:29] LABS: Anion Gap 3 (5-15); BUN 18 mg/dL (7-18); BUN/Creat Ratio 18.7 RATIO (10-20); Calcium,Total 8.8 mg/dL (8.5-10.1); Chloride 106 mmol/L (98-107); Creatinine, Serum 0.96 mg/dL (0.70-1.30); EST Glomerular Filtration Rate 79 mL/min (>60); Est Glom Filt Rate - Afr Amer 96 mL/min (>60); Estimated Creatinine Clearance 56.41 ml/min; Glucose 104 mg/dL (74-106); Potassium 3.8 mmol/L (3.5-5.1); Sodium Level 139 mmol/L (136-145)
--- NOTE | 2019-01-06 21:20 | HP.PCM_ITS ---
Problem List (1) Chest pain Status: Acute Qualifiers: Chest pain type: unspecified Qualified Code(s): R07.9 - Chest pain, unspecified (2) CAD (coronary artery disease) Status: Chronic Qualifiers: Coronary Disease-Associated Artery/Lesion type: unspecified vessel or lesion type [place] vs. transplanted heart: unspecified whether [place] or transplanted heart Associated angina: angina presence unspecified Qualified Code(s): I25.10 - Atherosclerotic heart disease of [place] coronary artery without angina pectoris (3) Anxiety and depression Status: Chronic (4) Obesity Status: Chronic Qualifiers: Obesity type: due to excess calories Obesity classification: adult class 1 (BMI 30 - 34.9) (5) Former tobacco use Status: Chronic (6) Bilateral carotid artery stenosis Status: Chronic Comment: Moderate (50-69%) stenosis right extracranial internal carotid. Moderate (50-69%) stenosis left extracranial internal carotid. 03/24/2018 (7) Essential (primary) hypertension Status: Chronic (8) Hyperlipidemia Status: Chronic Qualifiers: Hyperlipidemia type: pure hypercholesterolemia Qualified Code(s): E78.00 - Pure hypercholesterolemia, unspecified; E78.0 - Pure hypercholesterolemia History of Present Illness Date of Admission: 01/06/19 Chief Complaint: Chest pain The patient is a 83 y/o M w/ PMHx: Hx Carotid stenosis, CAD, Obesity, HTN, HLD, BPH, Hx C.difficile colitis, Anxiety and Depression, GERD who presents to the [facility] ED on 01/06/19 with history of onset chest heaviness, described as pressure in the mid chest region with radiation toward the back as well as bilateral upper extremity, started today at approximately 5:30 PM while in the kitchen with his , not remarkably active at that time, rated 6-7 out of 10 in severity, improved with aspirin and nitroglycerin therapy demonstration per EMS on route to hospital. Upon ED evaluation patient reported chest discomfort/pressure at 0 out of 10. Patient did have recent cardiac stress testing and echocardiogram in September 2017 which at that time was noted to be unremarkable and negative for inducible ischemia. Work-up in the ED included T 98.3, heart rate 73, BP 139/71, respiratory rate 16, 97% on room air, CBC with WC 5.6, hemoglobin 13.6, platelet 151 without shift, BMP unremarkable, troponin less than 0.015, EKG with sinus rhythm with no acute evidence of ischemia, chest x-ray with degenerative changes of the thoracic spine, calcified plaques of the aortic arch, evidence status post left total shoulder replacement, no acute cardiopulmonary findings. In the ED patient ministered Nitro-Bid 1 inch as well as aspirin therapy. Past Medical History Past Medical History (Chronic Problems): Chronic Problems (Last Reviewed 10/30/18 @ 09:58 by Horacio Avina MD) CAD (coronary artery disease) (Chronic) Anxiety and depression (Chronic) Obesity (Chronic) Former tobacco use (Chronic) Bilateral carotid artery stenosis (Chronic) Moderate (50-69%) stenosis right extracranial internal carotid. Moderate (50- 69%) stenosis left extracranial internal carotid. 03/24/2018 Essential (primary) hypertension (Chronic) Hyperlipidemia (Chronic) Medical History: Medical History (Last Reviewed 10/30/18 @ 09:58 by Horacio Avina MD) Essential (primary) hypertension (Chronic) I10 Hyperlipidemia (Chronic) E78.5 BPH (benign prostatic hyperplasia) Accelerated essential hypertension (Resolved) I10 C. difficile colitis A04.72 Nonrheumatic mitral valve prolapse (Inactive) I34.1 Allergies clindamycin Allergy (Verified 10/30/18 08:42) Rash Penicillins Allergy (Verified 10/30/18 08:42) Swelling gabapentin Adverse Reaction (Verified 10/30/18 08:42) hiccups hydrocodone bitartrate [From Vicodin] Adverse Reaction (Verified 10/30/18 08:42) Other ketoconazole Adverse Reaction (Verified 10/30/18 08:42) Nausea levofloxacin [From Levaquin] Adverse Reaction (Verified 10/30/18 08:42) severe headache prednisone Adverse Reaction (Verified 10/30/18 08:42) panic attack VICODIN Adverse Reaction (Uncoded 10/30/18 08:42) nervous,agitated Home Medications: Ambulatory Orders Medication Instructions Recorded Escitalopram Oxalate [Lexapro] 10 mg PO QHS 01/31/13 Omeprazole [Prilosec] 20 mg PO DAILY 01/31/13 Cholecalciferol (VIT D3) [Vitamin 1,000 unit PO DAILY 09/14/18 D3] L.acidoph,Paracasei, B.lactis 1 ea PO DAILY 09/14/18 [Probiotic] Lutein 6 mg PO DAILY 09/14/18 Primidone 25 mg PO DAILY 09/14/18 Reliv Nutrional Drink 1 pkt PO BID 09/14/18 aspirin 81 mg tablet,delayed 81 mg PO DAILY 10/30/18 release Amlodipine Besylate 1.25 mg PO BID 01/06/19 Escitalopram Oxalate [Lexapro] 5 mg PO DAILY 01/06/19 Pravastatin Sodium 20 mg PO DAILY 01/06/19 Surgical History: Surgical History (Last Reviewed 10/30/18 @ 09:58 by Horacio Avina MD) H/O colonoscopy Z98.890 H/O vasectomy Z98.52 History of left heart catheterization Onset Date: 1991 Z98.890 History of left shoulder replacement Onset Date: 08/2018 Z96.612 Hx of appendectomy Z90.49 Hx of cholecystectomy Z90.49 Hx of hernia repair Z98.890, Z87.19 Surgical History: appendectomy, cholecystectomy, herniorrhaphy, TURP - Shoulder surgery bilaterally, right hernia surgery, - - Vasectomy, left total shoulder replacement, appendectomy, cholecystectomy, hernia repair, TURP, right carpal tunnel surgery, right shoulder mass removal, prior arthroscopic shoulder surgery, surgical intervention for nephrolithiasis. Psychiatric History: Anxiety, Depression Lives: Spouse/ Significant Other Smoking Status: Former smoker Tobacco Use: Pipe Alcohol: None Drugs: None - *Family History Maternal Family History: Family History (Last Reviewed 10/30/18 @ 09:58 by Horacio Avina MD) Father CVA (cerebral vascular accident) Mother CAD (coronary artery disease) Diabetes Hypertension Brother Colon cancer Brother Hypertension Sister Myocardial infarction Son Myocardial infarction History Items: Diabetes, High Cholesterol, Heart Disease, Hypertension Paternal Family History: Family History (Last Reviewed 10/30/18 @ 09:58 by Horacio Avina MD) Father CVA (cerebral vascular accident) Mother CAD (coronary artery disease) Diabetes Hypertension Brother Colon cancer Brother Hypertension Sister Myocardial infarction Son Myocardial infarction History Items: Dementia, Stroke Review of Systems Constitutional: Reports: Malaise, Weakness, Fatigue. Denies: Chills, Fever, Weight Change HEENT: Denies: Head Aches, Sinus Congestion, Sinus Drainage Cardiovascular: Reports: Chest Pain, Chest Pressure, Heaviness. Denies: Light Headedness, Orthopnea, Palpitations, Syncope Respiratory: Denies: Cough, Shortness of Breath, Shortness of breath at rest, Shortness of breath upon exertion, Sputum production Gastrointestinal: Denies: Abdominal Pain, Nausea, Vomiting Genitourinary: Denies: Dysuria Musculoskeletal: Reports: Joint Pain. Denies: Joint Tenderness Skin: Denies: Rash, Wounds Neurological: Denies: Numbness, Tingling, Focal weakness Psychiatric: Reports: Anxiety, Depression. Denies: Homicidal Ideations, Suicidal Ideations Hematologic/ Lymphatic: Reports: Easy Bruising. Denies: Easy Bleeding VTE Information - Inpt Only VTE Present on Admission: No VTE Mechan Device Prophylaxis: SCD's VTE Pharm Prophylaxis ordered?: Yes Patient Problems: Active and Suspected Problems (Last Reviewed 10/30/18 @ 09:58 by Horacio Avina MD) Chest pain (Acute) Subjective: Seated upright in the ED bed, mildly fatigued appearance, notes chest pressure has resolved, Nitro-Bid in place. Objective: Physical Examination: General: awake, alert, oriented x 3 and cooperative, seated upright in the ED bed in no apparent distress, currently chest pressure resolved. Skin: normal color, turgor, no icterus, cyanosis. HEENT: AT/NC, EOMI, PERRLA, MMM, no carotid bruits or JVD noted. Lungs: CTA bilaterally, moderate effort, mild decrease BL bases, no rales, ronchi or wheezing. Heart: Regular rate and rhythm; no gallop, rub audible. Abdomen: soft, obese, NTTP, ND, normal BS, no HSM. Extremities: no cyanosis, clubbing, or edema. Neurological: patient awake, alert, oriented x 3; cognitive function intact; pupils equally reactive to light and accomodation; cranial nerves II-XII grossly normal, moving all 4 extremities, no focal deficits, strength mildly to moderately global decrease secondary to acute presentation, improved. Psychiatric: affect appears normal, no acute evidence of depressive or anxiety feelings. - Physical Exam Vital Signs Temp Pulse Resp BP Pulse Ox 98.3 F 65 18 135/73 H 98 01/06/19 18:47 01/06/19 19:21 01/06/19 18:47 01/06/19 19:21 01/06/19 19:20 Oxygen Delivery Method Room Air Weight: 204 lb 5.896 oz Body Mass Index (BMI) 31.0 Laboratory Tests Past 24 Hrs 01/06/19 01/06/19 18:50 18:50 WBC 5.6 RBC 4.50 L Hgb 13.6 Hct 40.6 MCV 90.2 MCH 30.2 MCHC 33.5 RDW Std Deviation 39.8 RDW Coeff of [place] 12.0 Plt Count 151 MPV 9.8 Immature Gran % (Auto) 0.400 Neut % (Auto) 54.2 Lymph % (Auto) 32.0 [place] % (Auto) 9.6 Eos % (Auto) 3.4 Baso % (Auto) 0.4 Absolute Neuts (auto) 3.1 Absolute Lymphs (auto) 1.80 Nucleated RBC % 0 Sodium 139 Potassium 3.8 Chloride 106 Carbon Dioxide 30.0 Anion Gap 3 L BUN 18 Creatinine 0.96 Estim Creat Clear Calc 56.41 Est GFR (MDRD) Af Amer 96 Est GFR (MDRD) Non-Af 79 BUN/Creatinine Ratio 18.7 Glucose 104 Calcium 8.8 Troponin I < 0.015 Assessment/Plan All Active Problems (Last Reviewed 10/30/18 @ 09:58 by Horacio Avina MD) Chest pain (Acute) Accelerated essential hypertension (Resolved) Benign positional vertigo (Resolved) Intractable hiccoughs (Resolved) The patient is a 83 y/o M w/ PMHx: Hx Carotid stenosis, CAD, Obesity, HTN, HLD, BPH, Hx C.difficile colitis, Anxiety and Depression, GERD who presents to the [facility] ED on 01/06/19 with history of onset chest heaviness, described as pressure in the mid chest region with radiation toward the back as well as bilateral upper extremity. 1. Chest Pain: EKG in ED sinus rhythm with no acute evidence of ischemia, CXR w/ chronic changes with no acute cardiopulmonary findings, initial trop normal x1. Will admit to PCU, place on a monitored bed to assure no acute myocardial infarction with serial cardiac enzymes and EKGs. If cardiac enzymes, EKGs remain stable, unremarkable will proceed with a.m. cardiac stress testing. ASA, morphine. Given chest discomfort improvement with Nitro-Bid will continue. FLP in AM. Mag pending. 2. Nonobstructive CAD, history carotid stenosis: Continue aspirin, statin, BP regimen, following with primary care outpatient for carotid stenosis. 3. Hypertension: Continue home regimen including amlodipine, PRN hydralazine. 4. Hyperlipidemia: Continue home statin regimen. AM FLP. 5. Anxiety and depression: We will continue home Lexapro regimen. 6. Obesity: Weight loss and lifestyle changes encouraged. 7. GERD: Continue home Prilosec regimen. 8. BPH: Status post TURP, improved. 9. DVT Prophylaxis: SCDs, lovenox. Code Visit OBSV E&M: 22827 Initial observation care L3
--- NOTE | 2019-01-06 21:30 | ED.VISSUMM ---
- ER Visit Summary Date of Service: 01/06/19 Chief Complaint: Chest pain History of Present Illness: The patient is a 83 M with retrosternal chest pain today that occurred while sitting. He feels a heaviness and a pressure. It radiates into his arms. Better with aspirin and nitro. He had a negative stress test and unremarkable echocardiogram in September 2017. History of hypertension and hyperlipidemia. Past smoker. Physical Examination: Afebrile and vital signs unremarkable. Heart regular rate and rhythm. Lungs clear. Abdomen soft. Extremities nontender. Skin appears normal. Test Results: EKG shows sinus rhythm rate 73. No sign of ischemia or infarction pattern. CBC, BMP, troponin normal. Chest x-ray showed chronic changes. Emergency Department Course and Treatment: Patient had already received aspirin. He received nitro, and his pain improved. His work-up was unremarkable as above. Given his age, risk factors, and symptoms, I contacted the hospitalist for inpatient evaluation. Treatment Plan: As above Disposition: Admission Impression: 1. Chest pain This note was generated with GigDropper dictation software. It may contain incorrect words, spelling, and punctuation that were not noted in review of the chart prior to signing ED Disposition - Plan for ED Patient: Disposition: Acute Care Hospital [facility]
[2019-01-06 21:47] VITALS: PULSE 65
[2019-01-06 22:25] VITALS: BP 138/70; PULSE 62; RESP 16; TEMP 36.6; O2SAT 100
--- NOTE | 2019-01-06 22:28 | EKG12_ITS ---
Test Reason : CP ADMIT Blood Pressure : / mmHG Vent. Rate : 057 BPM Atrial Rate : 057 BPM P-R Int : 184 ms QRS Dur : 094 ms QT Int : 414 ms P-R-T Axes : 016 -24 -18 degrees QTc Int : 402 ms Sinus bradycardia Minimal voltage criteria for LVH, may be normal variant Borderline ECG When compared with ECG of 15-APR-2018 12:09, No significant change was found Confirmed by KENDY HARRY, ESTEFANI ([id number]), online editor SERGIO SIMON ([id number]) on 01/11/2019 4:08:23 PM Referred By: DR PACKER Confirmed By:YASIR LARRY MD
[2019-01-06 22:39] LABS: Partial Thromboplast Time 30.6 Seconds (24.1-36.2)
[2019-01-06 22:40] VITALS: BMI 29.5
[2019-01-06 22:41] VITALS: PULSE 59
[2019-01-06 22:41] LABS: Magnesium 2.3 mg/dL (1.6-2.6)
[2019-01-06] MEDS: 0.9% Normal Saline 1,000 ML 100 ML IV (23:06)
[2019-01-06] MEDS: Escitalopram Oxalate 10 MG Tablet PO (23:25)
[2019-01-06] MEDS: amLODIPine 2.5 MG Tablet 1.25 MG PO (23:25)
[2019-01-07] VITALS (14 sets, daily range): BP systolic 122–149; BP diastolic 65–75; PULSE 51–80; RESP 12–18; TEMP 36.7–36.8; O2SAT 95–100
[2019-01-07 02:21] LABS: Absolute Lymphocyte Count 1.79 X10^3/uL (0.83-4.51); Absolute Neutrophil Count 2.2 X10^3/uL (2.0-7.7); Basophil# 0.02 X10^3/uL; Basophil% 0.4 % (0-1); Eosinophil# 0.19 X10^3/uL; Hematocrit 38.2 % (40-54); Hemoglobin 12.8 g/dL (13.0-16.5); Lymphocyte # 1.79 X10^3/ul (4.0); Lymphocyte % 37.4 % (19-41); Mean Corp Hgb Conc 33.5 g/dL (32-36); Mean Corpuscular Volume 89.7 fL (80-94); Mean Platelet Vol. 9.6 fl (6.2-12.0); Monocyte# 0.57 X10^3/uL; Monocyte% 11.9 % (0-10); NRBC Flagged by Analyzer 0 % (0-5); Neutrophil # 2.21 X10^3/uL (2.7-7.7); Neutrophil % 46.1 % (47-70); Platelet Count 131 K/mm3 (150-450); RBC Distribution Width CV 12.2 % (11.6-14.6); RBC Distribution Width SD 39.7 fl (35.1-43.9); Red Blood Count 4.26 M/mm3 (4.6-6.2); White Blood Count 4.8 K/mm3 (4.4-11.0)
[2019-01-07 02:23] LABS: International Normalized Ratio 1.1; Prothrombin Time (Protime)PT. 14.1 SECONDS (11.7-14.9)
[2019-01-07 02:34] LABS: Anion Gap 3 (5-15); BUN 15 mg/dL (7-18); BUN/Creat Ratio 15.8 RATIO (10-20); Calcium,Total 8.4 mg/dL (8.5-10.1); Chloride 108 mmol/L (98-107); Cholesterol 122 mg/dL (200); Creatinine, Serum 0.95 mg/dL (0.70-1.30); EST Glomerular Filtration Rate 81 mL/min (>60); Est Glom Filt Rate - Afr Amer 97 mL/min (>60); Glucose 105 mg/dL (74-106); High Density Lipoprotein 35 mg/dL; Potassium 3.7 mmol/L (3.5-5.1); Sodium Level 140 mmol/L (136-145); Triglycerides 84 mg/dL; Very Low Density Lipoprotein 17 mg/dL (5-40)
--- NOTE | 2019-01-07 05:55 | EKG12_ITS ---
Test Reason : AM EKG Blood Pressure : / mmHG Vent. Rate : 058 BPM Atrial Rate : 058 BPM P-R Int : 184 ms QRS Dur : 092 ms QT Int : 412 ms P-R-T Axes : 015 -22 -19 degrees QTc Int : 404 ms Sinus bradycardia Minimal voltage criteria for LVH, may be normal variant Borderline ECG When compared with ECG of 06-JAN-2019 22:21, MANUAL COMPARISON REQUIRED, DATA IS UNCONFIRMED Confirmed by KENDY HARRY, ESTEFANI ([id number]), editor producer SERGIO SIMON ([id number]) on 01/11/2019 4:09:33 PM Referred By: DR PACKER Confirmed By:YASIR LARRY MD
[2019-01-07] MEDS: Aspirin E.C. 81 MG Tablet PO (06:16)
--- NOTE | 2019-01-07 09:27 | STRESSREP_ITS ---
Stress Test Report Date: 01/07/2019 Procedure: Exercise tolerance test/imaging study Indications: Pain Consent: Per the patient Procedure: The patient exercised on a Raymond protocol for 6 minutes achieving a peak heart rate of 116 bpm (84 % predicted maximal heart rate) with a peak blood pressure 164/78 mmHg and a peak MET capacity of 7 METs. The baseline ECG demonstrated normal sinus rhythm. The peak exercise ECG demonstrated no significant ischemic changes. EKG during recovery revealed no significant ischemic changes [There were no cardiac dysrhythmias pretest, during exercise, or recovery]. The functional capacity was considered above average for age. There was [no complaint of chest discomfort during exercise or recovery]. The examination was discontinued secondary to dyspnea. Impression: 1. Stress test is negative [] for exercise-induced EKG changes of ischemia 2. The test test is negative for exercise-induced chest pain 3. Functional capacity is above average for age 4. Nuclear images pending Myocardial perfusion imaging study: Technique: The patient was injected with 10.1 mCi of technetium 99m Cardiolite and subsequently rest SPECT Cardiolite nuclear imaging was obtained in the horizontal long, vertical long, and short axis views. The patient exercised on a Raymond protocol. Please see above for details. The patient was injected with 29.3 mCi of technetium 99m Cardiolite and subsequently stress SPECT Cardiolite nuclear imaging was obtained in the horizontal long, vertical long, and short axis views. A gated Cardiolite study at peak stress was obtained. Interpretation: Rest and stress SPECT Cardiolite nuclear imaging status post realignment, normalization, and attenuation correction, demonstrates overall uniform myocardial radioisotope uptake in the rest and stress images. There is extracardiac uptake adjacent to the inferior wall in both the rest and stress images. The gated Cardiolite study demonstrates no significant regional wall motion abnormalities. The reported LVEF is 62 %. Impression: 1. There is no evidence of significant ischemia or infarction. 2. The gated Cardiolite study reports an LVEF of 62%. This note was generated with Sales Layer software. It may contain incorrect words, spelling, and punctuation that were not noted in checking the note be fore signing.
[2019-01-07] MEDS: Pantoprazole Sodium 20 MG Tablet PO (10:21)
[2019-01-07] MEDS: Primidone 50 MG Tablet 25 MG PO (10:21)
[2019-01-07] MEDS: Enoxaparin 40 MG/0.4 ML Syringe SC (10:21)
[2019-01-07] MEDS: Escitalopram Oxalate 10 MG Tablet 5 MG PO (10:22)
[2019-01-07] MEDS: amLODIPine 2.5 MG Tablet 1.25 MG PO (10:23)
[2019-01-07] MEDS: 0.9% Normal Saline 1,000 ML 100 ML IV (10:40)
--- NOTE | 2019-01-07 11:09 | CASEMGMT ---
Patient has a Healthcare POA and Healthcare LW. He is aware they are not on file at [facility]. Shani JAEGER MSW
--- NOTE | 2019-01-07 11:29 | DCINST_ITS ---
- Discharge Diagnoses Current Active Problems: Current Active and Chronic Problems Chest pain (Acute) CAD (coronary artery disease) (Chronic) Anxiety and depression (Chronic) Obesity (Chronic) Former tobacco use (Chronic) You will use the following diet at home:: Cardiac Discharge Activity: Return to Normal Activity Call your doctor if you observe: Shortness of breath, Dizziness, Fainting spells, Chest pain Allergies/Adverse Reactions: Allergies clindamycin Allergy (Verified 10/30/18 08:42) Rash Penicillins Allergy (Verified 10/30/18 08:42) Swelling gabapentin Adverse Reaction (Verified 10/30/18 08:42) hiccups hydrocodone bitartrate [From Vicodin] Adverse Reaction (Verified 10/30/18 08:42) Other ketoconazole Adverse Reaction (Verified 10/30/18 08:42) Nausea levofloxacin [From Levaquin] Adverse Reaction (Verified 10/30/18 08:42) severe headache prednisone Adverse Reaction (Verified 10/30/18 08:42) panic attack VICODIN Adverse Reaction (Uncoded 10/30/18 08:42) nervous,agitated Medications to take at Discharge Escitalopram Oxalate [Lexapro] 10 mg PO QHS 01/31/13 Omeprazole [Prilosec] 20 mg PO DAILY 01/31/13 Cholecalciferol (VIT D3) [Vitamin D3] 1,000 unit PO DAILY 09/14/18 L.acidoph,Paracasei, B.lactis [Probiotic] 1 ea PO DAILY 09/14/18 Lutein 6 mg PO DAILY 09/14/18 Primidone 25 mg PO DAILY 09/14/18 Reliv Nutrional Drink 1 pkt PO BID 09/14/18 aspirin 81 mg tablet,delayed release 81 mg PO DAILY 10/30/18 Amlodipine Besylate 1.25 mg PO BID 01/06/19 Escitalopram Oxalate [Lexapro] 5 mg PO DAILY 01/06/19 Pravastatin Sodium 20 mg PO DAILY 01/06/19 Primary Care Physician: Samia Dominguez MD [Primary Care Provider] - Please follow up with your Primary Care Physician in: 1 Week Test Results: Test results from this visit will be discussed in further detail at your follow- up appointment, if applicable. Please Follow Up With: Horacio Avina MD When: As scheduled Proposed Discharge Date: 01/07/19
--- NOTE | 2019-01-07 11:32 | DS.PCM_ITS ---
Discharge Date and Diagnosis Date of Admission: 01/06/19 Date of Discharge: 01/07/19 - Primary Discharge Diagnosis Active and Suspected Problems (Last Reviewed 10/30/18 @ 09:58 by Horacio Avina MD) 1. Atypical chest pain, ACS rule out 2. Nonobstructive CAD, history of carotid stenosis 3. Hypertension 4. Hyperlipidemia 5. Anxiety, depression 6. Obesity 7. GERD 8. BPH - Secondary Discharge Diagnosis Chronic Problems (Last Reviewed 10/30/18 @ 09:58 by Horacio Avina MD) CAD (coronary artery disease) (Chronic) Anxiety and depression (Chronic) Obesity (Chronic) Former tobacco use (Chronic) Bilateral carotid artery stenosis (Chronic) Moderate (50-69%) stenosis right extracranial internal carotid. Moderate (50- 69%) stenosis left extracranial internal carotid. 03/24/2018 Essential (primary) hypertension (Chronic) Hyperlipidemia (Chronic) Hospital Course and Treatment Imaging Results: Diagnostic Data Chest X-Ray 01/06/19 19:02 IMPRESSION: 1. Degenerative changes of the thoracic spine. 2. Calcified plaques of the aortic arch. 3. 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 4. No acute cardiac pulmonary disease process is seen. Electronically Signed: Sal Payan MD at 19:24 EDT , Service support , Operations: None Procedures: Stress test Summary of Care Provided: The patient is a 83 year old M admitted 01/06/2019 due to chest pain. 1. Atypical chest pain, ACS ruled out-EKG without ST-T changes. Chest x-ray without acute findings. Troponin negative. Patient underwent nuclear stress test which was negative for ischemia. Suspect anxiety may be contributing to patient's presenting symptoms. Follow-up with primary care physician in 1 week. 2. Nonobstructive CAD, history of carotid stenosis-continue aspirin, statin. Continue outpatient follow-up for carotid stenosis. 3. Hypertension-stable, continue home amlodipine regimen. 4. Hyperlipidemia-continue statin regimen. 5. Anxiety, depression-continue home Lexapro regimen. 6. Obesity-encouraged diet and lifestyle modifications. 7. GERD-continue home Prilosec regimen. 8. BPH-status post TURP. Patient seen and examined prior to discharge. Physical assessment as noted below. Patient is stable for discharge with follow up recommendations as noted above. This patient was seen by WALI Moraes under the supervision of Dr. Schuster. - Physical Exam General: Alert, Oriented x3, Cooperative HEENT: Atraumatic, PERRLA, EOMI, Normocephalic Neck: Supple, No JVD, Negative Carotid Bruits Lungs: Clear to auscultation, Normal air movement Cardiovascular: Regular rate, Regular Rhythm, Normal S1, Normal S2, No murmurs Abdomen: Bowel Sounds Present, Soft, Non Tender, Non-Distended Extremities: No clubbing, No cyanosis, No edema, Capillary Refill Less than 3 Seconds Skin: No rashes, No breakdown Musculoskeletal: No Tenderness to Palpation of Joints or Extremities Neurological: Cranial nerves II-XII grossly intact, Neuro grossly intact Psych/Mental Status: Normal Affect, Appropriate Vital Signs Temp Pulse Resp BP Pulse Ox 98.1 F 62 18 135/75 H 98 01/07/19 10:01/07/19 10:01/07/19 10:01/07/19 10:01/07/19 10:50 Oxygen Delivery Method Room Air Weight: 194 lb 10.691 oz Body Mass Index (BMI) 29.5 Intake and Output for Last 24 Hours 01/05/19 01/06/19 01/07/19 23:59 23:59 23:59 Intake Total 321.67 / 321.67 923.34 / 923.34 Output Total 2 / 2 1600 / 1600 Balance 319.67 / 319.67 -676.66 / -676.66 Laboratory Tests Past 24 Hrs 01/06/19 01/06/19 01/06/19 18:50 18:50 18:50 WBC 5.6 RBC 4.50 L Hgb 13.6 Hct 40.6 MCV 90.2 MCH 30.2 MCHC 33.5 RDW Std Deviation 39.8 RDW Coeff of [place] 12.0 Plt Count 151 MPV 9.8 Immature Gran % (Auto) 0.400 Neut % (Auto) 54.2 Lymph % (Auto) 32.0 [place] % (Auto) 9.6 Eos % (Auto) 3.4 Baso % (Auto) 0.4 Absolute Neuts (auto) 3.1 Absolute Lymphs (auto) 1.80 Nucleated RBC % 0 PT INR APTT 30.6 Sodium 139 Potassium 3.8 Chloride 106 Carbon Dioxide 30.0 Anion Gap 3 L BUN 18 Creatinine 0.96 Estim Creat Clear Calc 56.41 Est GFR (MDRD) Af Amer 96 Est GFR (MDRD) Non-Af 79 BUN/Creatinine Ratio 18.7 Glucose 104 Calcium 8.8 Magnesium Troponin I < 0.015 Triglycerides Cholesterol LDL Cholesterol VLDL Cholesterol HDL Cholesterol 01/06/19 01/06/19 01/07/19 18:50 22:55 02:00 WBC 4.8 RBC 4.26 L Hgb 12.8 L Hct 38.2 L MCV 89.7 MCH 30.0 MCHC 33.5 RDW Std Deviation 39.7 RDW Coeff of [place] 12.2 Plt Count 131 L MPV 9.6 Immature Gran % (Auto) 0.200 Neut % (Auto) 46.1 L Lymph % (Auto) 37.4 [place] % (Auto) 11.9 H Eos % (Auto) 4.0 Baso % (Auto) 0.4 Absolute Neuts (auto) 2.2 Absolute Lymphs (auto) 1.79 Nucleated RBC % 0 PT INR APTT Sodium Potassium Chloride Carbon Dioxide Anion Gap BUN Creatinine Estim Creat Clear Calc Est GFR (MDRD) Af Amer Est GFR (MDRD) Non-Af BUN/Creatinine Ratio Glucose Calcium Magnesium 2.3 Troponin I < 0.015 Triglycerides Cholesterol LDL Cholesterol VLDL Cholesterol HDL Cholesterol 01/07/19 01/07/19 01/07/19 02:00 02:00 02:00 WBC RBC Hgb Hct MCV MCH MCHC RDW Std Deviation RDW Coeff of [place] Plt Count MPV Immature Gran % (Auto) Neut % (Auto) Lymph % (Auto) [place] % (Auto) Eos % (Auto) Baso % (Auto) Absolute Neuts (auto) Absolute Lymphs (auto) Nucleated RBC % PT 14.1 INR 1.1 APTT Sodium 140 Potassium 3.7 Chloride 108 H Carbon Dioxide 29.0 Anion Gap 3 L BUN 15 Creatinine 0.95 Estim Creat Clear Calc 57.00 Est GFR (MDRD) Af Amer 97 Est GFR (MDRD) Non-Af 81 BUN/Creatinine Ratio 15.8 Glucose 105 Calcium 8.4 L Magnesium Troponin I < 0.015 Triglycerides 84 Cholesterol 122 LDL Cholesterol 70 VLDL Cholesterol 17 HDL Cholesterol 35 L Discharge Diet: Low fat/ Low Cholesterol Discharge Activity: Return to Normal Activity Call your doctor if you observe: Shortness of breath, Dizziness, Fainting spells, Chest pain Home Medications: Medications to take at Discharge Escitalopram Oxalate [Lexapro] 10 mg PO QHS 01/31/13 Omeprazole [Prilosec] 20 mg PO DAILY 01/31/13 Cholecalciferol (VIT D3) [Vitamin D3] 1,000 unit PO DAILY 09/14/18 L.acidoph,Paracasei, B.lactis [Probiotic] 1 ea PO DAILY 09/14/18 Lutein 6 mg PO DAILY 09/14/18 Primidone 25 mg PO DAILY 09/14/18 Reliv Nutrional Drink 1 pkt PO BID 09/14/18 aspirin 81 mg tablet,delayed release 81 mg PO DAILY 10/30/18 Amlodipine Besylate 1.25 mg PO BID 01/06/19 Escitalopram Oxalate [Lexapro] 5 mg PO DAILY 01/06/19 Pravastatin Sodium 20 mg PO DAILY 01/06/19 Primary Care Physician: Samia Dominguez MD [Primary Care Provider] - Please follow up with your Primary Care Physician in: 1 Week Please Follow Up With: Horacio Avina MD When: As scheduled Disposition: Home Minutes spent on discharge:: 35 Patient Condition:: Stable Medical Necessity - Tobacco Use Smoking Status: Former smoker Tobacco Use: Pipe Meaningful Use Info Meaningful Use Diagnoses (Choose all that apply): None applicable
[2019-01-07] MEDS: Nitroglycerin Oint 1 INCH PACKET 0.5 INCH TRANSDERM. (12:21)
--- NOTE | 2019-01-07 13:06 | PN_ITS ---
Subjective: Patient seen and examined. Denies further chest pain. Denies current complaints. Underwent stress test this morning which was negative for ischemia. - Physical Exam General: Alert, Oriented x3, Cooperative HEENT: Atraumatic, PERRLA, EOMI, Normocephalic Neck: Supple, No JVD, Negative Carotid Bruits Lungs: Clear to auscultation, Normal air movement Cardiovascular: Regular rate, Regular Rhythm, Normal S1, Normal S2, No murmurs Abdomen: Bowel Sounds Present, Soft, Non Tender, Non-Distended Extremities: No clubbing, No cyanosis, No edema, Capillary Refill Less than 3 Seconds Skin: No rashes, No breakdown Musculoskeletal: No Tenderness to Palpation of Joints or Extremities Neurological: Cranial nerves II-XII grossly intact, Neuro grossly intact Psych/Mental Status: Normal Affect, Appropriate Vital Signs Temp Pulse Resp BP Pulse Ox 98.1 F 61 18 149/72 H 95 01/07/19 10:19 01/07/19 12:21 01/07/19 12:19 01/07/19 12:21 01/07/19 12:19 Oxygen Delivery Method Room Air Weight: 194 lb 10.691 oz Body Mass Index (BMI) 29.5 Intake and Output for Last 24 Hours 01/05/19 01/06/19 01/07/19 23:59 23:59 23:59 Intake Total 321.67 / 321.67 923.34 / 923.34 Output Total 2 / 2 1600 / 1600 Balance 319.67 / 319.67 -676.66 / -676.66 Laboratory Tests Past 24 Hrs 01/06/19 01/06/19 01/06/19 18:50 18:50 18:50 WBC 5.6 RBC 4.50 L Hgb 13.6 Hct 40.6 MCV 90.2 MCH 30.2 MCHC 33.5 RDW Std Deviation 39.8 RDW Coeff of [place] 12.0 Plt Count 151 MPV 9.8 Immature Gran % (Auto) 0.400 Neut % (Auto) 54.2 Lymph % (Auto) 32.0 [place] % (Auto) 9.6 Eos % (Auto) 3.4 Baso % (Auto) 0.4 Absolute Neuts (auto) 3.1 Absolute Lymphs (auto) 1.80 Nucleated RBC % 0 PT INR APTT 30.6 Sodium 139 Potassium 3.8 Chloride 106 Carbon Dioxide 30.0 Anion Gap 3 L BUN 18 Creatinine 0.96 Estim Creat Clear Calc 56.41 Est GFR (MDRD) Af Amer 96 Est GFR (MDRD) Non-Af 79 BUN/Creatinine Ratio 18.7 Glucose 104 Calcium 8.8 Magnesium Troponin I < 0.015 Triglycerides Cholesterol LDL Cholesterol VLDL Cholesterol HDL Cholesterol 01/06/19 01/06/19 01/07/19 18:50 22:55 02:00 WBC 4.8 RBC 4.26 L Hgb 12.8 L Hct 38.2 L MCV 89.7 MCH 30.0 MCHC 33.5 RDW Std Deviation 39.7 RDW Coeff of [place] 12.2 Plt Count 131 L MPV 9.6 Immature Gran % (Auto) 0.200 Neut % (Auto) 46.1 L Lymph % (Auto) 37.4 [place] % (Auto) 11.9 H Eos % (Auto) 4.0 Baso % (Auto) 0.4 Absolute Neuts (auto) 2.2 Absolute Lymphs (auto) 1.79 Nucleated RBC % 0 PT INR APTT Sodium Potassium Chloride Carbon Dioxide Anion Gap BUN Creatinine Estim Creat Clear Calc Est GFR (MDRD) Af Amer Est GFR (MDRD) Non-Af BUN/Creatinine Ratio Glucose Calcium Magnesium 2.3 Troponin I < 0.015 Triglycerides Cholesterol LDL Cholesterol VLDL Cholesterol HDL Cholesterol 01/07/19 01/07/19 01/07/19 02:00 02:00 02:00 WBC RBC Hgb Hct MCV MCH MCHC RDW Std Deviation RDW Coeff of [place] Plt Count MPV Immature Gran % (Auto) Neut % (Auto) Lymph % (Auto) [place] % (Auto) Eos % (Auto) Baso % (Auto) Absolute Neuts (auto) Absolute Lymphs (auto) Nucleated RBC % PT 14.1 INR 1.1 APTT Sodium 140 Potassium 3.7 Chloride 108 H Carbon Dioxide 29.0 Anion Gap 3 L BUN 15 Creatinine 0.95 Estim Creat Clear Calc 57.00 Est GFR (MDRD) Af Amer 97 Est GFR (MDRD) Non-Af 81 BUN/Creatinine Ratio 15.8 Glucose 105 Calcium 8.4 L Magnesium Troponin I < 0.015 Triglycerides 84 Cholesterol 122 LDL Cholesterol 70 VLDL Cholesterol 17 HDL Cholesterol 35 L Medical Necessity - Tobacco Use Smoking Status: Former smoker Tobacco Use: Pipe Assessment/Plan All Active Problems (Last Reviewed 10/30/18 @ 09:58 by Horacio Avina MD) Chest pain (Acute) Accelerated essential hypertension (Resolved) Benign positional vertigo (Resolved) Intractable hiccoughs (Resolved) 1. Atypical chest pain, ACS ruled out/4 beat run V. tach-EKG without ST-T changes. Chest x-ray without acute findings. Troponin negative. Patient underwent nuclear stress test which was negative for ischemia. Given arrhythmia and history of intermittent chest pain with recurrent normal stress test, cardiology consult placed. Further disposition pending cardiology evaluation. 2. Nonobstructive CAD, history of carotid stenosis-continue aspirin, statin. Continue outpatient follow-up for carotid stenosis. 3. Hypertension-stable, continue home amlodipine regimen. 4. Hyperlipidemia-continue statin regimen. 5. Anxiety, depression-continue home Lexapro regimen. 6. Obesity-encouraged diet and lifestyle modifications. 7. GERD-continue home Prilosec regimen. 8. BPH-status post TURP. DVT prophylaxis-Lovenox subcu This patient was seen by WALI Moraes under the supervision of Dr. Schuster.
--- NOTE | 2019-01-07 16:12 | CHAPLAIN ---
Type of Pastoral Visit _x__ Initial Visit ___ Follow-up Visit ___ On-call Visit ___ General Patient Visit ___ Spiritual Assessment ___ Family Conference ___ Bereavement ___ Rapid Response ___ Code Blue ___ Other (describe below) Pastoral Care Referral From _x__ Patient ___ Family ___ Nurse ___ Physician ___ Pharmacy Student ___ Exercise Scientist ___ Other (describe below) Sacrament/Intervention _x__ Active listening ___ Anointing ___ Pentecostalism ___ Bereavement ___ Communion ___ Amber exploration ___ _x__ Life review _x__ Prayer ___ Reconciliation ___ Sacrament of Sick _x__ Supportive presence ___ Wedding ___ Other (describe below) Pastoral Comments
--- NOTE | 2019-01-07 18:00 | CON.PCM_ITS ---
Problem List (1) Chest pain Status: Acute Qualifiers: Chest pain type: unspecified Qualified Code(s): R07.9 - Chest pain, unspecified Reason for Consult Date of Consultation: 01/07/19 History of Present Illness: The patient is a 83 y/o M w/ PMHx: Hx Carotid stenosis, CAD, Obesity, HTN, HLD, BPH, Hx C.difficile colitis, Anxiety and Depression, GERD who presents to the [facility] ED on 01/06/19 with history of onset chest heaviness, described as pressure in the mid chest region with radiation toward the back as well as bilateral upper extremity, started today at approximately 5:30 PM while in the kitchen wit h his , not remarkably active at that time, rated 6-7 out of 10 in severity, improved with aspirin and nitroglycerin therapy demonstration per EMS on route to hospital. Upon ED evaluation patient reported chest discomfort/pressure at 0 out of 10. Patient did have recent cardiac stress testing and echocardiogram in September 2017 which at that time was noted to be unremarkable and negative for ind ucible ischemia. Patient was admitted to the PCU and cardiac enzymes were cycled. 3 sets of cardiac enzymes and EKG were unremarkable. He underwent stress testing which revealed no evidence of significant ischemia. Patient exercises on a regular basis and does not have chest pain at that time. He does have some lightheadedness which appears orthostatic by history. He did have a 4 beat run of nonsustained V. tach around midnight. No other significant arrhythmias noted on telemetry. Next Review of systems: All systems reviewed. All else is negative except that in the HPI. Past Medical History Allergies/Adverse Reactions: Allergies clindamycin Allergy (Verified 10/30/18 08:42) Rash Penicillins Allergy (Verified 10/30/18 08:42) Swelling gabapentin Adverse Reaction (Verified 10/30/18 08:42) hiccups hydrocodone bitartrate [From Vicodin] Adverse Reaction (Verified 10/30/18 08:42) Other ketoconazole Adverse Reaction (Verified 10/30/18 08:42) Nausea levofloxacin [From Levaquin] Adverse Reaction (Verified 10/30/18 08:42) severe headache prednisone Adverse Reaction (Verified 10/30/18 08:42) panic attack VICODIN Adverse Reaction (Uncoded 10/30/18 08:42) nervous,agitated Home Medications: Ambulatory Orders Medication Instructions Recorded Escitalopram Oxalate [Lexapro] 10 mg PO QHS 01/31/13 Omeprazole [Prilosec] 20 mg PO DAILY 01/31/13 Cholecalciferol (VIT D3) [Vitamin 1,000 unit PO DAILY 09/14/18 D3] L.acidoph,Paracasei, B.lactis 1 ea PO DAILY 09/14/18 [Probiotic] Lutein 6 mg PO DAILY 09/14/18 Primidone 25 mg PO DAILY 09/14/18 Reliv Nutrional Drink 1 pkt PO BID 09/14/18 aspirin 81 mg tablet,delayed 81 mg PO DAILY 10/30/18 release Amlodipine Besylate 1.25 mg PO BID 01/06/19 Escitalopram Oxalate [Lexapro] 5 mg PO DAILY 01/06/19 Pravastatin Sodium 20 mg PO DAILY 01/06/19 Past Medical History (Chronic Problems): Chronic Problems (Last Reviewed 10/30/18 @ 09:58 by Horacio Avina MD) CAD (coronary artery disease) (Chronic) Anxiety and depression (Chronic) Obesity (Chronic) Former tobacco use (Chronic) Bilateral carotid artery stenosis (Chronic) Moderate (50-69%) stenosis right extracranial internal carotid. Moderate (50- 69%) stenosis left extracranial internal carotid. 03/24/2018 Essential (primary) hypertension (Chronic) Hyperlipidemia (Chronic) Surgical History: appendectomy, cholecystectomy, herniorrhaphy, TURP - Shoulder surgery bilaterally, right hernia surgery, - - Vasectomy, left total shoulder replacement, appendectomy, cholecystectomy, hernia repair, TURP, right carpal tunnel surgery, right shoulder mass removal, prior arthroscopic shoulder surgery, surgical intervention for nephrolithiasis. Psychiatric History: Anxiety, Depression - *Family History Maternal Family History: Family History (Last Reviewed 10/30/18 @ 09:58 by Horacio Avina MD) Father CVA (cerebral vascular accident) Mother CAD (coronary artery disease) Diabetes Hypertension Brother Colon cancer Brother Hypertension Sister Myocardial infarction Son Myocardial infarction History Items: Diabetes, High Cholesterol, Heart Disease, Hypertension Paternal Family History: Family History (Last Reviewed 10/30/18 @ 09:58 by Horacio Avina MD) Father CVA (cerebral vascular accident) Mother CAD (coronary artery disease) Diabetes Hypertension Brother Colon cancer Brother Hypertension Sister Myocardial infarction Son Myocardial infarction History Items: Dementia, Stroke Lives: Spouse/ Significant Other Smoking Status: Former smoker Tobacco Use: Pipe Alcohol: None Drugs: None Objective: Vital Signs Temp Pulse Resp BP Pulse Ox 98.2 F 68 16 130/65 H 95 01/07/19 15:51 01/07/19 15:51 01/07/19 15:51 01/07/19 15:51 01/07/19 15:51 Oxygen Delivery Method Room Air Weight: 194 lb 10.691 oz Body Mass Index (BMI) 29.5 Intake and Output for Last 24 Hours 01/05/19 01/06/19 01/07/19 23:59 23:59 23:59 Intake Total 321.67 / 321.67 923.34 / 923.34 Output Total 1600 / 1600 Balance 319.67 / 319.67 -676.66 / -676.66 General: Awake, Alert, Oriented x 3 HEENT: Atraumatic Oral: Moist Mucosa Neck: Supple Lungs: Clear to auscultation Cardiovascular: Normal S1, Normal S2 Abdomen: Soft Extremities: No edema Skin: No Rashes Psych/Mental Status: Appropriate 01/06/19 18:50: WBC 5.6, RBC 4.50 L, Hgb 13.6, Hct 40.6, MCV 90.2, MCH 30.2, MCHC 33.5, Plt Count 151, MPV 9.8, Immature Gran % (Auto) 0.400, Neut % (Auto) 54.2, Lymph % (Auto) 32.0, Wilkes % (Auto) 9.6, Eos % (Auto) 3.4, Baso % (Auto) 0.4, Absolute Neuts (auto) 3.1, Nucleated RBC % 0 01/06/19 18:50: Sodium 139, Potassium 3.8, Chloride 106, Carbon Dioxide 30.0, Anion Gap 3 L, BUN 18, Creatinine 0.96, Est GFR (MDRD) Af Amer 96, Est GFR (MDRD) Non-Af 79, BUN/Creatinine Ratio 18.7, Glucose 104, Calcium 8.8, Troponin I < 0.015 01/06/19 18:50: APTT 30.6 01/06/19 18:50: Magnesium 2.3 01/06/19 22:55: Troponin I < 0.015 01/07/19 02:00: WBC 4.8, RBC 4.26 L, Hgb 12.8 L, Hct 38.2 L, MCV 89.7, MCH 30.0, MCHC 33.5, Plt Count 131 L, MPV 9.6, Immature Gran % (Auto) 0.200, Neut % (Au to) 46.1 L, Lymph % (Auto) 37.4, Wilkes % (Auto) 11.9 H, Eos % (Auto) 4.0, Baso % (Auto) 0.4, Absolute Neuts (auto) 2.2, Nucleated RBC % 0 01/07/19 02:00: PT 14.1, INR 1.1 01/07/19 02:00: Sodium 140, Potassium 3.7, Chloride 108 H, Carbon Dioxide 29.0, Anion Gap 3 L, BUN 15, Creatinine 0.95, Est GFR (MDRD) Af Amer 97, Est GFR (MDRD) Non-Af 81, BUN/Creatinine Ratio 15.8, Glucose 105, Calcium 8.4 L, Triglycerides 84, Cholesterol 122, LDL Cholesterol 70, VLDL Cholesterol 17, HDL Cholesterol 35 L 01/07/19 02:00: Troponin I < 0.015 Rhythm: EKG: ECHO: Stress Test: Cardiac Cath: PCI: CT Surgery: Holter monitor: EPS: PPM: CXR: Chest CT Scan: Assessment/Plan 1. Chest pain: Stress test is negative. Patient does not get this chest pain when he exercises at home. He did not get this chest pain when he exercised on the treadmill today for stress testing either. He has history of coronary angiogram in the past that did not show significant obstructive CAD. No further work-up required for this at this time. He can follow-up with Dr. Avina for this. 2. Lightheadedness: This appears orthostatic. We will be conservative with blood pressure management. Patient was advised to get up carefully from a seated or lying position.
== END 2019-01-07 17:55 | disposition home or self-care (01) ==
LOC: ED 19:08 → PCU 21:50
PROVIDERS: Admitting Provider Family Medicine; Emergency Provider Emergency Medicine; Family Provider Internal Medicine; PCP Internal Medicine; Visit Provider Internal Medicine
DX: R07.89 Other chest pain (principal); I25.10 Atherosclerotic heart disease of native coronary artery without angina pectoris; F41.9 Anxiety disorder, unspecified; F32.9 Major depressive disorder, single episode, unspecified; E66.9 Obesity, unspecified; E78.5 Hyperlipidemia, unspecified; I65.23 Occlusion and stenosis of bilateral carotid arteries; R42 Dizziness and giddiness; I10 Essential (primary) hypertension; N40.0 Benign prostatic hyperplasia without lower urinary tract symptoms; K21.9 Gastro-esophageal reflux disease without esophagitis; Z79.899 Other long term (current) drug therapy; Z79.82 Long term (current) use of aspirin; Z68.29 Body mass index [BMI] 29.0-29.9, adult; Z71.3 Dietary counseling and surveillance; Z87.891 Personal history of nicotine dependence
CPT/HCPCS: 36415; 71045; 78452; 80048; 80061; 83735; 84484; 85025; 85610; 85730; 93005; 93017; 94002; 96360; 96361; 96372; 99218; 99285; A9500; J7030; A4216; G0378

== ENCOUNTER → 2019-01-12 14:00 | Outpatient (CLI) | payer MEDICARE, BC, SELFPAY ==
[2019-01-06 22:40] VITALS: BMI 29.5
[2019-01-12 14:39] VITALS: BP 139/69; PULSE 68; RESP 16; O2SAT 97; BMI 30.5
[2019-01-12 15:04] VITALS: BP 138/68; PULSE 67
[2019-01-12] MEDS: Nitroglycerin SL (ED/IMG/CATH) 0.4 MG TABLET SUBLINGUAL (15:04)
[2019-01-12 15:17] VITALS: BP 130/62; PULSE 68; RESP 18; O2SAT 96
[2019-01-12 15:31] VITALS: BP 138/77; PULSE 68; RESP 18
--- NOTE | 2019-01-12 15:45 | CT_ITS ---
STUDY: CARDIAC CALCIUM SCORING - CT CHEST REASON FOR EXAM: Male, 83 years old. Screening. RADIATION DOSAGE (If Supplied By Facility): CTDIvol = ( 26.09 ) mGy, DLP = ( 1257.12 ) mGycm TECHNIQUE: Axial non-enhanced images were acquired through the heart for the sole purpose of measuring coronary artery calcium. Individualized dose optimization techniques were used for this CT. COMPARISON: None. FINDINGS: This portion of the report is being generated solely for the evaluation of noncoronary artery structures which have been assessed on plain another report. The lungs are well expanded. There are multiple tiny 1 to 2 mm calcifications within the lungs consistent with granulomata. There is a larger 3 mm calcified granuloma in the right middle lobe just below the oblique fissure. No noncalcified masses are present. The heart is of normal size. There are coronary artery calcifications. There is a small pericardial effusion versus pericardial thickening. There is nonspecific subcentimeter mediastinal lymphadenopathy. Normal oliver. Normal pulmonary arteries. There is atherosclerotic changes of the thoracic aorta without aneurysm. There are degenerative changes of the thoracic spine. Normal visualized upper abdomen. CT/Limited Chest CT w/CCTA IMPRESSION: 1. Old granulomatous disease. 2. Atherosclerotic changes of the coronary arteries and thoracic aorta. Pending Final Proof Editing
--- NOTE | 2019-01-12 16:53 | CCTA_ITS ---
Calcium Scoring Date of Study:: 01/12/19 Coronary Calcium Scoring: High-resolution Computed Tomographic imaging of the chest was performed on [01/12/2019.], with particular attention paid to the coronary arteries. Patient was administered appropriate beta-mikey dose and 100 cc of non-iodinated contrast was administered and images were reconstructed. Images from the examination were analyzed for the presence and extent of coronary artery calcification , using coronary calcium quantification software. Coronary ang iography images were also evaluated. The patient tolerated the procedure well and there were no complications. The results of the coronary calcification analysis were as angiography are provided below. - Findings Left Main (LM): 0 Left Anterior Descending (LAD): 444 Left Circumflex (LCX): 515 Right Coronary Artery (RCA): 1 Total Agatston Score: 960 Percentile Rankin-75% Calcium Scoring Interpretation: 0 No identifiable atherosclerotic plaque. Very low cardiovascular disease risk. <5% chance of presence coronary artery disease A Negative Examination 1-10 Minimal Plaque burden. Significant coronary artery disease very unlikely. 11-100 Mild plaque burden. Likely mild or minimal coronary atherosclerosis. 101-400 Moderate plaque burden Moderate non-obstructive coronary artery disease highly likely. Over 400 Extensive plaque burden. High likelihood of at least one significant coronary stenosis (>50% diameter) Calcium Score: >400 High likelihood of at least one significant coronary stenosis Conclusion: Coronary angiography. There is a trileaflet aortic valve noted with a non-dilated aortic root. Left main coronary artery the left main coronary artery arose out of the left coronary cusp and bifurcating to the left anterior descending artery and the left circumflex artery. No significant obstructive disease was noted in this vessel. Left anterior descending artery: The left anterior descending artery was a moderate-sized vessel with significant calcification in the proximal third prior to the takeoff of the first diagonal branch. The extent of the heavy calcification does not allow full delineation of the coronary patency. The mid and distal left anterior descending artery however does not demonstrate any significant stenosis. Left circumflex artery: Left circumflex artery was a nondominant vessel. The proximal circumflex artery was noted to have moderate calcification with no obvious high-grade stenosis noted. The extent of the calcification however obscured a full delineation of coronary anatomy. The first obtuse marginal branch was noted with no significant stenosis the vessel continued with minimal plaquing of the AV groove branch. Dominant right coronary artery: The right coronary artery arose art of the right coronary cusp and gave off a conus branch and then terminated with a posterior descending artery and posterolateral branch. No high-grade stenosis was noted in this vessel. Minimal calcification was present. Conclusion: Elevated coronary calcification score with extensive plaque burden with a high likelihood of at least one significant coronary artery greater than 50% stenosis in diameter. Significant calcification is noted in the proximal left anterior descending artery and proximal circumflex artery. Total Agatston score of 960.
== END ==
PROVIDERS: Family Provider Internal Medicine; PCP Internal Medicine; Referring Provider Internal Medicine; Visit Provider Internal Medicine
DX: I47.2 Ventricular tachycardia (principal); R07.9 Chest pain, unspecified; I25.10 Atherosclerotic heart disease of native coronary artery without angina pectoris
CPT/HCPCS: 75571; 75574; 76380; 93225; 93226; Q9967; A4216

== ENCOUNTER 2019-01-19 06:40 | Day surgery (SDC) | payer MEDICARE, BC, SELFPAY ==
[2019-01-12 14:39] VITALS: BMI 30.5
[2019-01-18 10:40] VITALS: BMI 29.2
--- NOTE | 2019-01-19 13:52 | HP_ITS ---
HPI HPI History of Present Illness Surgical H&P: Yes Details: ANTONETTE HARRIS, is a 83 M who presents to the office today for a cardiovascular follow-up. He has a history of moderate coronary artery disease, hypertension, hyperlipidemia, mitral valve prolapse, and SASHA with BiPap therapy. He denies chest, arm, jaw, or neck discomfort. His exercise tolerance is stable. He denies symptoms of CHF, palpitations, dizziness, near syncope, or syncopal episodes. He denies edema or claudication issues. He denies orthopnea, PND, fever, chills, blood in urine, blood in stool, myalgia, or unexplainable fatigue. He states continual lightheadedness. He has been evaluated by ENT with no known etiology. This continues to worsen since shoulder surgery in August 2018. This is associated with sensation of falling and weakness. He states he lost his pep. He has an upcoming appointment with neurologist to further evaluate. Due to his ongoing lightheadedness and nonsustained ventricular tachycardia with unexplainable etiology, he will undergo a loop recorder placement to evaluate further. 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 1:30 Project Surveyor Required: No Is patient in pain?: No Allergies clindamycin Allergy (Verified 02/10/19 13:02) Rash Penicillins Allergy (Verified 02/10/19 13:02) Swelling gabapentin Adverse Reaction (Verified 02/10/19 13:02) hiccups hydrocodone bitartrate [From Vicodin] Adverse Reaction (Verified 02/10/19 13:02) Other ketoconazole Adverse Reaction (Verified 02/10/19 13:02) Nausea levofloxacin [From Levaquin] Adverse Reaction (Verified 02/10/19 13:02) severe headache prednisone Adverse Reaction (Verified 02/10/19 13:02) panic attack VICODIN Adverse Reaction (Uncoded 10/30/18 08:42) nervous,agitated Medications Escitalopram Oxalate [Lexapro] 10 mg PO QHS 01/31/13 [History Confirmed 02/10/19] Omeprazole [Prilosec] 20 mg PO DAILY 01/31/13 [History Confirmed 02/10/19] Cholecalciferol (VIT D3) [Vitamin D3] 1,000 unit PO DAILY 09/14/18 [History Confirmed 02/10/19] L.acidoph,Paracasei, B.lactis [Probiotic] 1 ea PO DAILY 09/14/18 [History Confirmed 02/10/19] Lutein 6 mg PO DAILY 09/14/18 [History Confirmed 02/10/19] Primidone 25 mg PO DAILY 09/14/18 [History Confirmed 02/10/19] Reliv Nutrional Drink 1 pkt PO BID 09/14/18 [History Confirmed 02/10/19] aspirin 81 mg tablet,delayed release 81 mg PO DAILY 10/30/18 [History Confirmed 02/10/19] Amlodipine Besylate 1.25 mg PO BID 01/06/19 [History Confirmed 02/10/19] Escitalopram Oxalate [Lexapro] 5 mg PO DAILY 01/06/19 [History Confirmed 02/10/19] Pravastatin Sodium 20 mg PO DAILY 01/06/19 [History Confirmed 02/10/19] [facility] Medical History (Updated 02/11/19 @ 08:22 by Mirza Aden 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) Hx of appendectomy (Resolved) Hx of cholecystectomy (Resolved) Hx of hernia repair (Resolved) Family History (Updated 09/23/17 @ 15:48 by Fernanda Johnson) Father CVA (cerebral vascular accident) Mother CAD (coronary artery disease) Diabetes Hypertension Brother Colon cancer Brother Hypertension Sister Myocardial infarction Son Myocardial infarction Social History (Updated 02/11/19 @ 08:28 by WALI Cohen) Smoking Status: Former smoker ROS Const Const: Positive for fatigue and weakness; negative for body ache, fever(s) or chills ENT ENT: Negative for dizziness Cardio Chest Pain: No Palpitations: No Edema: None Muscle aches with walking: None Resp Respiratory: Negative for SOB with activity, SOB at rest, SOB orthopnea\SOB lying down or paroxysmal nocturnal dyspnea GI GI: Negative nausea, vomiting blood/hematemesis, bright, red blood in stools or black,tarry stools : Negative for hematuria or frequent nighttime urination/ nocturia Musc Musc: Negative for muscle aches/ myalgia Skin Skin: Negative non-healing lesions or rash Neuro Neuro: Positive for lightheadedness and weakness; negative for dizziness, near syncope, syncope or orthostatic symptoms Endo Endo: Positive for fatigue Allergy Allergy/Immunology: Negative for rash Cardiology Exam Const Appearance: cooperative, healthy appearing, comfortable and no acute distress Nutritional Appearance: well nourished and obese Orientation: alert, awake and oriented x3 Head Head: normal to inspection Ears: hearing grossly normal bilaterally Nose: external nose normal Face and Sinus: face symmetric Mouth: oral mucosae normal Eyes General: appearance normal, both eyes and all related structures Eyelids: eyelids normal EOM: EOM intact bilaterally Neck Neck: normal visual inspection and no JVD Carotids: normal carotid upstroke Chest Chest inspection: normal inspection of the chest, symmetric chest movement and normal respiratory effort; negative cough Auscultation: Bilateral: Clear to Auscultation Cardio Rate: regular rate Rhythm: regular rhythm Heart sounds: S1 normal and S2 normal; negative rub, gallop or murmur GI GI: normal to inspection and obese Neuro General: alert, awake, oriented x3 and CN's II-XI intact bilaterally Skin Skin: no rashes or lesions noted Extremities Pulses: Normal: Right Posterior Tibial Pulse, Left Posterior Tibial Pulse, Right Radial Pulse, Left Radial Pulse Lower Extremity Edema: None: Bilateral Psych Psychological: normal affect Assessment & Plan 1. Atherosclerosis of [place] coronary artery of [place] heart without angina pectoris I25.10 Plan He underwent heart catheterization on 01/21/2019 that showed ejection fraction of 50% with moderate coronary artery disease involving the left anterior descending artery and circumflex artery with calcification noted in the left main, left anterior descending artery, and left circumflex artery territories. No high- grade obstructive disease was noted. Medical management was recommended. Patient denies any chest pain, arm pain, jaw pain, neck pain, shortness of breath, or fatigue suggestive of angina at this time. We will continue to monitor. We will not make any medication regimen changes and will continue risk factor modification. 2. Intermittent palpitations R00.2 Plan This has been ongoing issue. His EKG today in office showed sinus rhythm at a rate of 71 bpm QTC of 373. He will proceed with loop recorder placement to help evaluate further. Based on results, further recommendation will be made. Orders Orders: 12 Lead EKG performed by [facility] 02/10/19 3. Bilateral carotid artery stenosis I65.23 Moderate (50-69%) stenosis right extracranial internal carotid. Moderate (50-69%) stenosis left extracranial internal carotid. 03/24/2018 Plan His last carotid duplex ultrasound from February 2018 showed moderate bilateral internal carotid artery stenosis. He will continue with current statin medication and aspirin therapy. We will continue to monitor. 4. Essential (primary) hypertension I10 Plan Patient's blood pressure is well-controlled. We will continue to monitor. We will not make any medication regimen changes. 5. Pure hypercholesterolemia E78.00 Plan He will continue current statin medication 6. NSVT (nonsustained ventricular tachycardia) I47.2 Plan His most recent Holter monitor from 01/12/2019 showed no ventricular tachycardia and for ventricular ectopic beats. During his hospitalization in December 2018 he did have shortness of nonsustained runs of ventricular tachycardia. This will be monitored with loop recorder placement. He is not on rate limiting medications due to ongoing dizziness. Orders Orders: 12 Lead EKG performed by [facility] [place] 02/10/19 Plan Detail Additional Comments He will proceed with loop recorder placement with Dr. Avina. Thank you for allowing us to participate in the patients plan of care, if you have any questions please do not hesitate to call. This note was generated using a voice recognition system and there may be incorrect words, spelling or punctuation that were not noted when reviewing the office note prior to saving. Coding Level of Care Code Off vis,est,level 3 Diagnoses Atherosclerosis of [place] coronary artery of [place] heart without angina pectoris I25.10 ??Coronary Disease-Associated Artery/Lesion type: [place] artery Intermittent palpitations R00.2 Bilateral carotid artery stenosis I65.23 Essential (primary) hypertension I10 Pure hypercholesterolemia E78.00 ??Hyperlipidemia type: pure hypercholesterolemia NSVT (nonsustained ventricular tachycardia) I47.2 Coding Level of Care Code Off vis,est,level 3 Diagnoses Atherosclerosis of [place] coronary artery of [place] heart without angina pectoris I25.10 ??Coronary Disease-Associated Artery/Lesion type: [place] artery Intermittent palpitations R00.2 Bilateral carotid artery stenosis I65.23 Essential (primary) hypertension I10 Pure hypercholesterolemia E78.00 ??Hyperlipidemia type: pure hypercholesterolemia NSVT (nonsustained ventricular tachycardia) I47.2 Supplemental Info Supplemental Information Heart catheterization from 01/21/2019: CONCLUSIONS Moderate coronary artery disease involving the left anterior descending artery and circumflex artery with calcification noted in the left main, left anterior descending artery and left circumflex artery territories. Tortuous aorta noted. No high-grade obstructive disease present. RECOMMENDATIONS Medical therapy CORONARY ANGIOGRAPHY DOMINANCE: Left Dominant LEFT HEART ASSESSMENT Left Ventricular Ejection Fraction: by Echo 55 % LEFT MAIN: Mild calcification, short vessel seperate ostia LEFT ANTERIOR DESCENDING ARTERY: MID LAD: Moderate luminal irregularities up to 50% DIAGONAL 1: Ostial - 60 % Stenosis CIRCUMFLEX ARTERY: OM 1: Proximal - Mild luminal irregularities less than 30% OM 3: Ostial - 60 % Stenosis RIGHT CORONARY ARTERY: Mild luminal irregularities less than 30% Carotid duplex ultrasound from 03/24/2018: Interpretation Summary Moderate (50-69%) stenosis right extracranial internal carotid. Moderate (50- 69%) stenosis left extracranial internal carotid. Flow within the vertebral arteries is antegrade bilaterally. Echocardiogram 10/07/2017: Interpretation Summary Left ventricular systolic function is normal. The estimated ejection fraction is 55 %. Trivial mitral valve insufficiency. Trivial tricuspid valve insufficiency. Mild (1+) pulmonic valve insufficiency. There is evidence of diastolic dysfunction. 24-hour Holter monitor from 01/12/2019: Average heart rate of 61 bpm in normal sinus rhythm Minimum heart rate of 47 beats minute sinus bradycardia Maximum heart of 92 bpm normal sinus rhythm 4 ventricular ectopic beats There were a total of 18 supraventricular ectopic beats including one atrial couplet and one atrial run totaling 3 beats rate 140 bpm Longest RR interval was 1.5 seconds No atrial fibrillation No ventricle tachycardia, The patient kept a 24-hour diary and noted lightheadedness/headache, chest pain/pressure, and shortness of breath which did not correlate with scan Carotid duplex ultrasound from 03/24/2018: Interpretation summary Moderate (50-69%) stenosis right extracranial internal carotid. Moderate (50- 69%) stenosis left extracranial internal carotid. Flow within the vertebral arteries is antegrade bilaterally. Labs LDL Cholesterol 70 mg/dL (0-130) 01/07/19 HDL Cholesterol 35 mg/dL (40-) L 01/07/19 Triglycerides 84 mg/dL (-199) 01/07/19 VLDL Cholesterol 17 mg/dL (5-40) 01/07/19 Diagnostics Electrocardiogram 02/10/19 Stress Test Nuclear Medicine 01/07/19 Stress Test 01/07/19 Pacemaker Check 02/10/19 Cardiac Catheterization 01/21/19 Chest X-Ray 01/06/[address] 01/12/19
--- NOTE | 2019-01-21 09:59 | CL.D_ITS ---
Patient Name: ANTONETTE HARRIS Study Date: 01/19/2019 Performing: Horacio Avina MD Ht: 68 inches 172.72 cm : 1935 Wt: 192.5 lbs 87.22 kg Age: 83 Gender: male BSA: 2.01 PROCEDURE(S) PERFORMED [id number] CLINICAL PROFILE AND INDICATIONS Indications: Suspected CAD Heart Failure: None Stress/Imaging Stress Test w/SPECT MPI: Yes Result: Positive Intermediate RiskStress Test with SP ECT MPI: Positive Intermediate Risk CAD Presentations: No Sxs, no angina. CONCLUSIONS Moderate coronary artery disease involving the left anterior descending artery and circumflex artery with calcification noted in the left main, left anterior descending artery and left circumflex artery territories. Tortuous aorta noted. No high-grade obstructive disease present. RECOMMENDATIONS Medical therapy DESCRIPTION OF PROCEDURE The patient arrived to the procedure lab. The risks and benefits of the procedure as well as a full d escription of our services here and current unavailability of surgical backup were fully explained to the patient and/or their significant other prior to the catheterization. The Timeout was completed, verifying the correct patient and procedure. The patient's procedural site was prepped and draped in the usual fashion. Local anesthetic was given subcutaneously to right groin region with Lidocaine 2%. Using a modified Seldinger technique, arterial access was obtained via the right radial artery, a 6F r sheath was inserted. Right Coronary Artery selective angiography was then performed in multiple vi ews using a 5 Fr. 4.0 Phil[place] catheter. Left Coronary Artery selective angiography was performed in mul tiple views using a 5 Fr. 4.0 Phil[place] catheter.The arterial sheath was pulled and a TR Band was applied for hemostasis, 12cc of air was put in the TR Band CORONARY ANGIOGRAPHY DOMINANCE: Left Dominant LEFT HEART ASSESSMENT Left Ventricular Ejection Fraction: by Echo 55 % LEFT MAIN: Mild calcification, short vessel seperate ostia LEFT ANTERIOR DESCENDING ARTERY: MID LAD: Moderate luminal irregularities up to 50% DIAGONAL 1: Ostial - 60 % Stenosis CIRCUMFLEX ARTERY: OM 1: Proximal - Mild luminal irregularities less than 30% OM 3: Ostial - 60 % Stenosis RIGHT CORONARY ARTERY: Mild luminal irregularities less than 30% COMPLICATIONS No Complications PROCEDURE MEDICATIONS Versed 1 mg IV Fentanyl 50 mcg IV Oxygen: 2 L/min via nasal cannula Heparin diluted in 23cc Heparinized saline. Patient given 10cc IA of this solution. 01/19/2019 08:47: 11 Verapamil 2.5mg, Ntg 100mcgs, 2000 units of Heparin diluted in 23cc Heparinized saline. Patient give n 10cc IA of this solution. 01/19/2019 08:47:11 SUMMARY OF HEMODYNAMIC DATA Time AIR REST ECG 07:02:58 AO 109/52 (76) SA 08:54:58 AO 123/69 (92) 08:55:38 Signed By Horacio Avina MD On 01/19/2019 12:19:00 PM Horacio Avina MD
== END 2019-01-19 11:15 | disposition home or self-care (01) ==
LOC: CLSP 06:41
PROVIDERS: Family Provider Internal Medicine; PCP Internal Medicine; Referring Provider Internal Medicine Cardiovascular Disease; Visit Provider Internal Medicine Cardiovascular Disease
DX: I25.10 Atherosclerotic heart disease of native coronary artery without angina pectoris (principal); I47.2 Ventricular tachycardia; I34.1 Nonrheumatic mitral (valve) prolapse; I10 Essential (primary) hypertension; E78.5 Hyperlipidemia, unspecified; I65.23 Occlusion and stenosis of bilateral carotid arteries; G47.33 Obstructive sleep apnea (adult) (pediatric); N40.0 Benign prostatic hyperplasia without lower urinary tract symptoms; F32.9 Major depressive disorder, single episode, unspecified; F41.9 Anxiety disorder, unspecified; E66.9 Obesity, unspecified; Z88.0 Allergy status to penicillin; Z88.1 Allergy status to other antibiotic agents; Z88.3 Allergy status to other anti-infective agents; Z88.5 Allergy status to narcotic agent; Z88.8 Allergy status to other drugs, medicaments and biological substances; Z79.82 Long term (current) use of aspirin; Z79.899 Other long term (current) drug therapy; Z87.891 Personal history of nicotine dependence
CPT/HCPCS: 93454; 99152; 99153; J7040; C1769; C1894; Q9967

== ENCOUNTER → 2019-02-10 14:04 | Outpatient (CLI) | payer MEDICARE, BC, SELFPAY ==
[2019-02-10 13:58] VITALS: BMI 29.2
[2019-02-10 15:23] LABS: Hematocrit 38.5 % (40-54); Hemoglobin 12.9 g/dL (13.0-16.5); Mean Corp Hgb Conc 33.5 g/dL (32-36); Mean Corpuscular Hgb 29.9 pg (27.0-32.0); Mean Corpuscular Volume 89.3 fL (80-94); Mean Platelet Vol. 10.1 fl (6.2-12.0); Platelet Count 161 K/mm3 (150-450); RBC Distribution Width CV 12.7 % (11.6-14.6); RBC Distribution Width SD 41.8 fl (35.1-43.9); Red Blood Count 4.31 M/mm3 (4.6-6.2)
[2019-02-10 15:39] LABS: Anion Gap 5 (5-15); BUN 16 mg/dL (7-18); BUN/Creat Ratio 17.1 RATIO (10-20); Calcium,Total 8.8 mg/dL (8.5-10.1); Chloride 104 mmol/L (98-107); Creatinine, Serum 0.94 mg/dL (0.70-1.30); EST Glomerular Filtration Rate 82 mL/min (>60); Est Glom Filt Rate - Afr Amer 99 mL/min (>60); Glucose 98 mg/dL (74-106); Potassium 3.8 mmol/L (3.5-5.1); Sodium Level 139 mmol/L (136-145)
== END ==
PROVIDERS: Family Provider Internal Medicine; PCP Internal Medicine; Referring Provider Internal Medicine Cardiovascular Disease; Visit Provider Internal Medicine Cardiovascular Disease
DX: I47.2 Ventricular tachycardia (principal); R00.2 Palpitations
CPT/HCPCS: 36415; 80048; 85027

== ENCOUNTER 2019-02-19 06:47 | Day surgery (SDC) | payer MEDICARE, BC, SELFPAY ==
[2019-01-18 10:40] VITALS: BMI 29.2
[2019-02-10 13:58] VITALS: BMI 29.2
--- NOTE | 2019-02-11 08:28 | HP_ITS ---
HPI HPI History of Present Illness Surgical H&P: Yes Details: ANTONETTE HARRIS, is a 83 M who presents to the office today for a cardiovascular follow-up. He has a history of moderate coronary artery disease, hypertension, hyperlipidemia, mitral valve prolapse, and SASHA with BiPap therapy. He denies chest, arm, jaw, or neck discomfort. His exercise tolerance is stable. He denies symptoms of CHF, palpitations, dizziness, near syncope, or syncopal episodes. He denies edema or claudication issues. He denies orthopnea, PND, fever, chills, blood in urine, blood in stool, myalgia, or unexplainable fatigue. He states continual lightheadedness. He has been evaluated by ENT with no known etiology. This continues to worsen since shoulder surgery in August 2018. This is associated with sensation of falling and weakness. He states he lost his pep. He has an upcoming appointment with neurologist to further evaluate. Due to his ongoing lightheadedness and nonsustained ventricular tachycardia with unexplainable etiology, he will undergo a loop recorder placement to evaluate further. 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 Is patient in pain?: No Allergies clindamycin Allergy (Verified 02/10/19 13:02) Rash Penicillins Allergy (Verified 02/10/19 13:02) Swelling gabapentin Adverse Reaction (Verified 02/10/19 13:02) hiccups hydrocodone bitartrate [From Vicodin] Adverse Reaction (Verified 02/10/19 13:02) Other ketoconazole Adverse Reaction (Verified 02/10/19 13:02) Nausea levofloxacin [From Levaquin] Adverse Reaction (Verified 02/10/19 13:02) severe headache prednisone Adverse Reaction (Verified 02/10/19 13:02) panic attack VICODIN Adverse Reaction (Uncoded 10/30/18 08:42) nervous,agitated Medications Escitalopram Oxalate [Lexapro] 10 mg PO QHS 01/31/13 [History Confirmed 02/10/19] Omeprazole [Prilosec] 20 mg PO DAILY 01/31/13 [History Confirmed 02/10/19] Cholecalciferol (VIT D3) [Vitamin D3] 1,000 unit PO DAILY 09/14/18 [History Confirmed 02/10/19] L.acidoph,Paracasei, B.lactis [Probiotic] 1 ea PO DAILY 09/14/18 [History Confirmed 02/10/19] Lutein 6 mg PO DAILY 09/14/18 [History Confirmed 02/10/19] Primidone 25 mg PO DAILY 09/14/18 [History Confirmed 02/10/19] Reliv Nutrional Drink 1 pkt PO BID 09/14/18 [History Confirmed 02/10/19] aspirin 81 mg tablet,delayed release 81 mg PO DAILY 10/30/18 [History Confirmed 02/10/19] Amlodipine Besylate 1.25 mg PO BID 01/06/19 [History Confirmed 02/10/19] Escitalopram Oxalate [Lexapro] 5 mg PO DAILY 01/06/19 [History Confirmed 02/10/19] Pravastatin Sodium 20 mg PO DAILY 01/06/19 [History Confirmed 02/10/19] [facility] Medical History (Updated 02/11/19 @ 08:22 by Mirza Aden D[employer] CLEANER-C) Atherosclerosis of coronary artery of gambell heart without angina pectoris (Chronic) NSVT (nonsustained ventricular tachycardia) (Resolved) Bilateral carotid artery stenosis (Chronic) Essential (primary) hypertension (Chronic) Hyperlipidemia (Chronic) Anxiety and depression (Chronic) BPH (benign prostatic hyperplasia) (Chronic) Former tobacco use (Chronic) Obesity (Chronic) Accelerated essential hypertension (Resolved) C. 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) Hx of appendectomy (Resolved) Hx of cholecystectomy (Resolved) Hx of hernia repair (Resolved) Family History (Updated 09/23/17 @ 15:48 by Fernanda Johnson) Father CVA (cerebral vascular accident) Mother CAD (coronary artery disease) Diabetes Hypertension Brother Colon cancer Brother Hypertension Sister Myocardial infarction Son Myocardial infarction Social History (Updated 02/11/19 @ 08:28 by WALI Cohen) Smoking Status: Former smoker ROS Const Const: Positive for fatigue and weakness; negative for body ache, fever(s) or chills ENT ENT: Negative for dizziness Cardio Chest Pain: No Palpitations: No Edema: None Muscle aches with walking: None Resp Respiratory: Negative for SOB with activity, SOB at rest, SOB orthopnea\SOB lying down or paroxysmal nocturnal dyspnea GI GI: Negative nausea, vomiting blood/hematemesis, bright, red blood in stools or black,tarry stools : Negative for hematuria or frequent nighttime urination/ nocturia Musc Musc: Negative for muscle aches/ myalgia Skin Skin: Negative non-healing lesions or rash Neuro Neuro: Positive for lightheadedness and weakness; negative for dizziness, near syncope, syncope or orthostatic symptoms Endo Endo: Positive for fatigue Allergy Allergy/Immunology: Negative for rash Cardiology Exam Const Appearance: cooperative, healthy appearing, comfortable and no acute distress Nutritional Appearance: well nourished and obese Orientation: alert, awake and oriented x3 Head Head: normal to inspection Ears: hearing grossly normal bilaterally Nose: external nose normal Face and Sinus: face symmetric Mouth: oral mucosae normal Eyes General: appearance normal, both eyes and all related structures Eyelids: eyelids normal EOM: EOM intact bilaterally Neck Neck: normal visual inspection and no JVD Carotids: normal carotid upstroke Chest Chest inspection: normal inspection of the chest, symmetric chest movement and normal respiratory effort; negative cough Auscultation: Bilateral: Clear to Auscultation Cardio Rate: regular rate Rhythm: regular rhythm Heart sounds: S1 normal and S2 normal; negative rub, gallop or murmur GI GI: normal to inspection and obese Neuro General: alert, awake, oriented x3 and CN's II-XI intact bilaterally Skin Skin: no rashes or lesions noted Extremities Pulses: Normal: Right Posterior Tibial Pulse, Left Posterior Tibial Pulse, Right Radial Pulse, Left Radial Pulse Lower Extremity Edema: None: Bilateral Psych Psychological: normal affect Assessment & Plan 1. Atherosclerosis of gambell coronary artery of gambell heart without angina pectoris I25.10 Plan He underwent heart catheterization on 01/21/2019 that showed ejection fraction of 50% with moderate coronary artery disease involving the left anterior descending artery and circumflex artery with calcification noted in the left main, left anterior descending artery, and left circumflex artery territories. No high- grade obstructive disease was noted. Medical management was recommended. Patient denies any chest pain, arm pain, jaw pain, neck pain, shortness of breath, or fatigue suggestive of angina at this time. We will continue to monitor. We will not make any medication regimen changes and will continue risk factor modification. 2. Intermittent palpitations R00.2 Plan This has been ongoing issue. His EKG today in office showed sinus rhythm at a rate of 71 bpm QTC of 373. He will proceed with loop recorder placement to help evaluate further. Based on results, further recommendation will be made. Orders Orders: 12 Lead EKG performed by [facility] [place] 02/10/19 3. Bilateral carotid artery stenosis I65.23 Moderate (50-69%) stenosis right extracranial internal carotid. Moderate (50-69%) stenosis left extracranial internal carotid. 03/24/2018 Plan His last carotid duplex ultrasound from February 2018 showed moderate bilateral internal carotid artery stenosis. He will continue with current statin medication and aspirin therapy. We will continue to monitor. 4. Essential (primary) hypertension I10 Plan Patient's blood pressure is well-controlled. We will continue to monitor. We will not make any medication regimen changes. 5. Pure hypercholesterolemia E78.00 Plan He will continue current statin medication 6. NSVT (nonsustained ventricular tachycardia) I47.2 Plan His most recent Holter monitor from 01/12/2019 showed no ventricular tachycardia and for ventricular ectopic beats. During his hospitalization in December 2018 he did have shortness of nonsustained runs of ventricular tachycardia. This will be monitored with loop recorder placement. He is not on rate limiting medications due to ongoing dizziness. Orders Orders: 12 Lead EKG performed by [facility] [place] 02/10/19 Plan Detail Additional Comments He will proceed with loop recorder placement with Dr. Avina. Thank you for allowing us to participate in the patients plan of care, if you have any questions please do not hesitate to call. This note was generated using a voice recognition system and there may be incorrect words, spelling or punctuation that were not noted when reviewing the office note prior to saving. Coding Level of Care Code Off vis,est,level 3 Diagnoses Atherosclerosis of gambell coronary artery of gambell heart without angina pectoris I25.10 ??Coronary Disease-Associated Artery/Lesion type: gambell artery Intermittent palpitations R00.2 Bilateral carotid artery stenosis I65.23 Essential (primary) hypertension I10 Pure hypercholesterolemia E78.00 ??Hyperlipidemia type: pure hypercholesterolemia NSVT (nonsustained ventricular tachycardia) I47.2 Coding Level of Care Code Off vis,est,level 3 Diagnoses Atherosclerosis of gambell coronary artery of gambell heart without angina pectoris I25.10 ??Coronary Disease-Associated Artery/Lesion type: gambell artery Intermittent palpitations R00.2 Bilateral carotid artery stenosis I65.23 Essential (primary) hypertension I10 Pure hypercholesterolemia E78.00 ??Hyperlipidemia type: pure hypercholesterolemia NSVT (nonsustained ventricular tachycardia) I47.2 Supplemental Info Supplemental Information Heart catheterization from 01/21/2019: CONCLUSIONS Moderate coronary artery disease involving the left anterior descending artery and circumflex artery with calcification noted in the left main, left anterior descending artery and left circumflex artery territories. Tortuous aorta noted. No high-grade obstructive disease present. RECOMMENDATIONS Medical therapy CORONARY ANGIOGRAPHY DOMINANCE: Left Dominant LEFT HEART ASSESSMENT Left Ventricular Ejection Fraction: by Echo 55 % LEFT MAIN: Mild calcification, short vessel seperate ostia LEFT ANTERIOR DESCENDING ARTERY: MID LAD: Moderate luminal irregularities up to 50% DIAGONAL 1: Ostial - 60 % Stenosis CIRCUMFLEX ARTERY: OM 1: Proximal - Mild luminal irregularities less than 30% OM 3: Ostial - 60 % Stenosis RIGHT CORONARY ARTERY: Mild luminal irregularities less than 30% Carotid duplex ultrasound from 03/24/2018: Interpretation Summary Moderate (50-69%) stenosis right extracranial internal carotid. Moderate (50- 69%) stenosis left extracranial internal carotid. Flow within the vertebral arteries is antegrade bilaterally. Echocardiogram 10/07/2017: Interpretation Summary Left ventricular systolic function is normal. The estimated ejection fraction is 55 %. Trivial mitral valve insufficiency. Trivial tricuspid valve insufficiency. Mild (1+) pulmonic valve insufficiency. There is evidence of diastolic dysfunction. 24-hour Holter monitor from 01/12/2019: Average heart rate of 61 bpm in normal sinus rhythm Minimum heart rate of 47 beats minute sinus bradycardia Maximum heart of 92 bpm normal sinus rhythm 4 ventricular ectopic beats There were a total of 18 supraventricular ectopic beats including one atrial couplet and one atrial run totaling 3 beats rate 140 bpm Longest RR interval was 1.5 seconds No atrial fibrillation No ventricle tachycardia, The patient kept a 24-hour diary and noted lightheadedness/headache, chest pain/pressure, and shortness of breath which did not correlate with scan Carotid duplex ultrasound from 03/24/2018: Interpretation summary Moderate (50-69%) stenosis right extracranial internal carotid. Moderate (50- 69%) stenosis left extracranial internal carotid. Flow within the vertebral arteries is antegrade bilaterally. Labs LDL Cholesterol 70 mg/dL (0-130) 01/07/19 HDL Cholesterol 35 mg/dL (40-) L 01/07/19 Triglycerides 84 mg/dL (-199) 01/07/19 VLDL Cholesterol 17 mg/dL (5-40) 01/07/19 Diagnostics Electrocardiogram 02/10/19 Stress Test Nuclear Medicine 01/07/19 Stress Test 01/07/19 Pacemaker Check 02/10/19 Cardiac Catheterization 01/21/19 Chest X-Ray 01/06/[address] 01/12/19 02/11/19 0828 <Electronically signed by Mirza Streeter> Date _ Mirza KEYES
[2019-02-19 07:12] VITALS: BMI 29.3
--- NOTE | 2019-02-19 07:49 | CL.IE_ITS ---
Patient: ANTONETTE HARRIS Study Date: 02/19/2019 Performing: Horacio Avina MD : 1935 Age: 83 Gender: male PROCEDURES PERFORMED [id number] OF LOOP RECORDER INDICATIONS Syncope PROCEDURE DETAILS The patient was brought to the Catheterization Lab in the postabsorptive nonsedated state. Infor med consent was obtained prior to the procedure. Local anesthetic was given subcutaneously to the le ft upper chest area with Lidocaine 2%. Incision was made to the left upper chest. ICM Reveal LINQ was inserted into the pocket. Steri-strips applied to Lt chest area. The patient tolerated the procedur e well. Estimated Blood Loss: 3 ml's IMPLANTED / EX-PLANTED DEVICES IMPLANTED DEVICE(S): ICM Reveal LINQ - Punch Card Operator: [employer], Model # [id number] Serial # [id number] DEVICE PARAMETERS CONCLUSIONS / RECOMMENDATIONS Device Conclusions: Successful implantation of a patient activated loop recorder. Device Recommendations: Follow up with Primary Care Physician PROCEDURE MEDICATIONS Versed 1 mg IV Oxygen: 2 L/min via nasal cannula Antibiotic given in appropriate timeframe. Signed By Horacio Avina MD On 02/19/2019 07:49:25 Horacio Avina MD
== END 2019-02-19 08:50 | disposition home or self-care (01) ==
LOC: CLSP 06:47
PROVIDERS: Family Provider Internal Medicine; PCP Internal Medicine; Referring Provider Internal Medicine Cardiovascular Disease; Visit Provider Internal Medicine Cardiovascular Disease
DX: R55 Syncope and collapse (principal); I25.10 Atherosclerotic heart disease of native coronary artery without angina pectoris; I10 Essential (primary) hypertension; E78.5 Hyperlipidemia, unspecified; I34.1 Nonrheumatic mitral (valve) prolapse; I65.23 Occlusion and stenosis of bilateral carotid arteries; N40.0 Benign prostatic hyperplasia without lower urinary tract symptoms; G47.33 Obstructive sleep apnea (adult) (pediatric); E66.9 Obesity, unspecified; F32.9 Major depressive disorder, single episode, unspecified; F41.9 Anxiety disorder, unspecified; Z79.899 Other long term (current) drug therapy; Z79.82 Long term (current) use of aspirin; Z87.891 Personal history of nicotine dependence
CPT/HCPCS: 33285; 99152; J7040; A4216

== ENCOUNTER → 2019-03-15 14:38 | Outpatient (CLI) | payer MEDICARE, BC, SELFPAY ==
[2019-03-02 07:44] VITALS: BMI 30.1
--- NOTE | 2019-03-15 14:41 | CT_ITS ---
STUDY: CT LEFT SHOULDER REASON FOR EXAM: Male, 84 years old. Shoulder pain. RADIATION DOSAGE (If Supplied By Facility): CTDIvol = ( 30.91 ) mGy, DLP = ( 716.39 ) mGycm TECHNIQUE: The patient was scanned in a multi detector CT scanner. High resolution transaxial imaging was performed without the administration of intravenous contrast material. Sagittal and coronal images were reconstructed. Individualized dose optimization techniques were used for this CT. COMPARISON: Chest, January 07, 2012. Left shoulder, September 23, 2018. FINDINGS: There is a left shoulder replacement. The prosthetic components appear intact and articulate normally with each other. There is no visualized loosening from the underlying bone. There is no visualized prosthetic failure. There is no associated osseous fracture. Normal coracoid process. Normal visualized lateral clavicle. There is mild osteoarthritis with articular joint space narrowing. There is a Type II morphology (curved), with a neutral orientation. Normal visualized muscles and soft tissue structures. CT/Extremity Upper without Contra IMPRESSION: 1. Left shoulder replacement without evidence of acute abnormality. 2. Degenerative changes of the acromioclavicular joint. Electronically Signed: Mckay Nash DO at 19:36 EST Tel [phone], Service support ,
--- NOTE | 2019-03-15 14:41 | CT_ITS ---
STUDY: CTA NECK WITH CONTRAST REASON FOR EXAM: Male, 84 years old. Occlusion of the left vertebral artery. RADIATION DOSAGE (If Supplied By Facility): CTDIvol = ( 25.88 ) mGy, DLP = ( 600.86 ) mGycm TECHNIQUE: CT angiography with multi-detector data acquisition was performed from the aortic arch to the skull base following intravenous administration of IV Isovue 370 100CC. MIP images were reconstructed from the axial data set. Post-processing of the angiographic images was performed, with multiplanar reformation and 3D reconstruction. Individualized dose optimization techniques were used for this CT. COMPARISON: Carotid Doppler ultrasound, March 24, 2018. CTA the carotid arteries, July 05, 2015. FINDINGS: AORTIC ARCH: There is atherosclerotic calcific plaque formation of the aortic arch and great vessels arising from the aortic arch, without a hemodynamically significant stenosis. There is a normal origin of the brachiocephalic, left common carotid, and left subclavian arteries. RIGHT CAROTID ARTERIES: There is a tiny focus of calcific plaque in the mid right common carotid artery (CCA) without stenosis. Small focal calcification at the base of the carotid bulb without significant stenosis. Normal origin of the right internal carotid (ICA) artery without a hemodynamically significant stenosis. Normal visualized cervical portion of the right internal carotid artery. Normal origin of the right external carotid artery (ECA). LEFT CAROTID ARTERIES: Normal left common carotid artery (CCA). There is a small calcific plaque at the upper portion of the carotid bulb without stenosis. Normal origin of the left internal carotid (ICA) artery without a hemodynamically significant stenosis. Mild tortuosity of the visualized cervical portion of the left internal carotid artery. Normal origin of the left external carotid artery (ECA). VERTEBRAL ARTERIES: Normal bilateral vertebral arteries. There are degenerative changes only cervical spine. Normal thyroid. Normal lung apices. CT/CTA Neck W/WO Contrast IMPRESSION: 1. No evidence of vertebral artery occlusion. 2. Minimal atherosclerotic changes of the bilateral carotid arteries without significant stenosis. This was not present on the prior CTA. Electronically Signed: Mckay Nash DO at 16:06 EST Tel [phone], Service support ,
== END ==
PROVIDERS: Family Provider Internal Medicine; PCP Internal Medicine; Referring Provider Specialist; Visit Provider Specialist
DX: I65.02 Occlusion and stenosis of left vertebral artery (principal); M25.512 Pain in left shoulder
CPT/HCPCS: 70498; 73200; Q9967

== ENCOUNTER 2019-04-05 10:30 | Outpatient (RCR) | payer MEDICARE, BC, SELFPAY ==
[2019-03-02 07:44] VITALS: BMI 30.1
--- NOTE | 2019-03-22 10:57 | HP.PTEVAL_ITS ---
Patient's Visit Information ANTONETTE HARRIS is a 84 year old M referred to Physical Therapy by Pavel Dutton MD with a diagnosis of BPPV L. Date of Evaluation: 03/22/19 Physical Therapist: Ashok Nolasco, DPT, OCS, CSCS - Visit Plan Frequency: 1-2x /Week Duration: 4-6 Weeks Plan: weekly to 2x/week for monitor effects of positional and vestibular ex adn progression. Monitor c/s ROM effects on dizzyness btu this appears to be vestibuilar in nature from positional or weakness in the vestibular complex due to lack of head mvoement. Next session moniotr positional and Jimmy if needed or habituation ex. - Subjective Findings: Feels slight lightheadedness all the time starting in Mid October. Bending and standing up causes the world to go around lasting a minute to [address] since October. Happens looking up to do ex in door for shoulder. Needs to sit if it sits. Dr. Guzman called and stated he has had all the heart tests(including loop monitor without any obvious problems.), neuro, carotid artery test as wella s weaned off meds which did not hep. Seems like heart is OK according to Dr. Avina. Saw neuro and had nystagmus. Went to ENT and had testing which seemed OK. Dr. Dutton thinks vertigo. H/o neck problems and degenration but has not made him dizzy before. Sleep seems OK on his back. activities pretty normal just has to be carefuil and can be miserable at times. No falls, uses cane as a precaution with temp changes. - Objective Walks I but looks down adn forward head posture. C/S AROM ext 25 degrees, L rotation 35, R rotation 45 degrees, no pain just stiff. UE AROM WFL.Trasnfers are I but always looks down upon arising due to limitations in neck ext. - R hallpike dipti. - L hallpike dipti but dizzy upon arising asymmetrically for short duration. Ocuomotor: no nystagmus with gaze or head shake. convergence slow. - skew eye deviation. Saccades adn pursuit are asymptomatic and slow but I. VOR hoirz and vertical do not create symtpoms, Neck movemetn is not great abut has been that way for a long time. refexes 1/3 bi and tri - Balance Scores Functional Gait Assessment Score: 24 % Disability: 20.0000 CATSIB Score (Max score 120 seconds): 105 - Goals Goal 1:: Abok[place] lightheaded dizzy feeling Goal Time Frame: 4-6 Weeks Goal 2:: Pt feel 90% back to normal Goal Time Frame: 4-6 Weeks Goal 3:: I appropr management of condition. Goal Time Frame: 4-6 Weeks - Rehabilitation Potential Physical Therapy Diagnosis: Possible L BPPV and vesitbuar weakness from lack of head movement Rehabilitation Potential: Fair - Anticipated Interventions Patient/Client Instruction: Educate patient on: Condition, Plan of Care, Risk Factors For the Purpose of:: To improve gait and locomotor functions Comment: positional and habituation ex. For the Purpose of:: To increase tolerance to activity/condition/position, To improve safety Thank you for the opportunity to evaluate your patient. For Medicare and Medicare HMO plans, please review the plan of care and approve it. It will need to be FAXED BACK to us at [phone] for Medicare purposes. For Medicare only, by signing this I certify the plan of care. Please let me know if there are questions or concerns regarding this plan of care. Physician Signature: Date:_
--- NOTE | 2019-04-05 10:52 | HP.PTDCSUM ---
HP - PT D/C Summary It has been my pleasure to treat ANTONETTE HARRIS under orders from Pavel Dutton MD, for the diagnosis of BPPV L for a total of 3 visit(s). Discharge Date: 04/05/19 Please see the following information for a summary of their discharge status. - Subjective Subjective: 80% better. Only slight lightheaded first thing in am. Does exercises for a minute adn then it is gone. Activities are prtty normal. - Overall Improvement % Improvement: 80 - Objective Objective/Function: FGA better. no MSQ positions casue dizzyness today. - B hallpike dipti and - roll test. Gettting around well adn feeling better. Ready to be done with PT ubjectively. - Goals Goal 1:: Abok[place] lightheaded dizzy feeling Goal Progress: Progressing Goal 2:: Pt feel 90% back to normal Goal Progress: Progressing Goal 3:: I appropr management of condition. Goal Progress: Progressing - Plan Plan: d/c - D/C Information Discharge Comments: Will f/u with Bvis next week. If there are questions or concerns regarding this patient's physical therapy, please feel free to call me at [phone]. Thank you for the referral of this patient. Sincerely, Ashok Nolasco, DPT, OCS, CSCS
== END 2019-04-05 19:00 | disposition home or self-care (01) ==
LOC: PT 10:30
PROVIDERS: Family Provider Internal Medicine; PCP Internal Medicine; Referring Provider Psychiatry & Neurology Neurology; Visit Provider Psychiatry & Neurology Neurology
DX: H81.12 Benign paroxysmal vertigo, left ear (principal)
CPT/HCPCS: 97110; 97162; 97530

== ENCOUNTER → 2019-10-15 08:32 | Outpatient (CLI) | payer MEDICARE, BC, SELFPAY ==
[2019-03-02 07:44] VITALS: BMI 30.1
--- NOTE | 2019-10-15 08:36 | RAD_ITS ---
STUDY: X-RAY - LUMBAR SPINE REASON FOR EXAM: Male, 84 years old. PAIN IN LOWER BACK FOR A COUPLE OF WEEKS, RADIATING DOWN INTO THE RIGHT LEG AND TINGLING IN RIGHT FOOT. NO KNOWN RECENT INJURY. TECHNIQUE: 3 view(s) of the lumbar spine were obtained. COMPARISON: None FINDINGS: Normal lumbar lordosis. There is no substantial scoliosis. Slight retrolisthesis of L3. Minimal retrolisthesis of L2. Normal vertebral body height without fracture, osteolytic or blastic bone lesion. Moderately advanced degenerative disc findings at L1-2, L2-3 and L3-4. Mild to moderate degenerative disc narrowing at L4-5 and L5-S1. Prominent disc bulge at L2-3 and L3-4 Degenerative facet joint changes at all lumbar levels. Vascular calcifications. RAD/Lumbar Spine 2 or 3 Views IMPRESSION: Degenerative retrolisthesis of L2 and L3 with otherwise normal alignment. Negative for fracture, osteolytic or blastic bone lesion. Degenerative disc and joint changes are more severe at L1-2, L2-3 and L3-4 with prominent disc bulges at L2-3 and L3-4. Facet arthrosis at most lumbar levels. Electronically Signed: Rashmi Roy MD at 17:13 EDT , Service support ,
== END ==
PROVIDERS: PCP Internal Medicine; Referring Provider Internal Medicine; Visit Provider Internal Medicine
DX: M54.5 Low back pain (principal)
CPT/HCPCS: 72100

== ENCOUNTER 2019-11-08 07:35 | Day surgery (SDC) | payer MEDICARE, BC, SELFPAY ==
[2019-11-02 10:29] VITALS: BMI 29.9
--- NOTE | 2019-11-02 11:17 | HP_ITS ---
HPI HPI History of Present Illness Surgical H&P: Yes Details: ANTONETTE HARRIS, is a 84 M who presents to the office today for a cardiovascular follow-up. He has a history of moderate coronary artery disease, hypertension, hyperlipidemia, mitral valve prolapse, and SASHA with BiPap therapy. He denies chest, arm, jaw, or neck discomfort. His exercise tolerance is stable. He denies symptoms of CHF, palpitations, dizziness, near syncope, or syncopal episodes. He denies edema or claudication issues. He denies orthopnea, PND, fever, chills, blood in urine, blood in stool, myalgia, or unexplainable fatigue. He says that his dizziness has been secondary to a vestibular problem. You do remember that his cardiac catheterization demonstrated no significant obstructive coronary disease his Holter monitor did not demonstrate any significant abnormalities. He wants his implantable loop recorder to be taken out. I had a long discussion regarding this and he is quite firm on this. His blood pressure is under good control his physical exam is otherwise unremarkable. Intake Vital Signs 11/02/19 Height 5 ft 8 in 11/02/19 Weight: 197 lb 11/02/19 BMI 29.9 11/02/19 BP 145/82 H 11/02/19 Respiration 16 11/02/19 Pulse 80 11/02/19 Pulse Oximetry (%) 97 Intake Visit Reasons: 1 Y FU Allergies clindamycin Allergy (Verified 11/02/19 10:47) Rash Penicillins Allergy (Verified 11/02/19 10:47) Swelling gabapentin Adverse Reaction (Verified 11/02/19 10:47) hiccups hydrocodone bitartrate [From Vicodin] Adverse Reaction (Verified 11/02/19 10:47) Other ketoconazole Adverse Reaction (Verified 11/02/19 10:47) Nausea levofloxacin [From Levaquin] Adverse Reaction (Verified 11/02/19 10:47) severe headache prednisone Adverse Reaction (Verified 11/02/19 10:47) panic attack VICODIN Adverse Reaction (Uncoded 11/02/19 10:47) nervous,agitated Medications Escitalopram Oxalate [Lexapro] 10 mg PO QHS 01/31/13 [History Confirmed 11/02/19] Omeprazole [Prilosec] 20 mg PO DAILY 01/31/13 [History Confirmed 11/02/19] Cholecalciferol (VIT D3) [Vitamin D3] 1,000 unit PO DAILY 09/14/18 [History Confirmed 11/02/19] L.acidoph,Paracasei, B.lactis [Probiotic] 1 ea PO DAILY 09/14/18 [History Confirmed 11/02/19] Lutein 6 mg PO DAILY 09/14/18 [History Confirmed 11/02/19] Primidone 25 mg PO DAILY 09/14/18 [History Confirmed 11/02/19] Reliv Nutrional Drink 1 pkt PO BID 09/14/18 [History Confirmed 11/02/19] aspirin 81 mg tablet,delayed release 81 mg PO DAILY 10/30/18 [History Confirmed 11/02/19] Amlodipine Besylate 1.25 mg PO BID 01/06/19 [History Confirmed 11/02/19] Escitalopram Oxalate [Lexapro] 5 mg PO DAILY 01/06/19 [History Confirmed 11/02/19] Pravastatin Sodium 20 mg PO DAILY 01/06/19 [History Confirmed 11/02/19] Ejection fraction %: 55 to 59 PFSH Medical History Vertigo (Chronic) Rapid palpitations (Chronic) Near syncope (Chronic) Atherosclerosis of coronary artery of [place] heart without angina pectoris (Chronic) NSVT (nonsustained ventricular tachycardia) (Resolved) Bilateral carotid artery stenosis (Chronic) Essential (primary) hypertension (Chronic) Hyperlipidemia (Chronic) Anxiety and depression (Chronic) BPH (benign prostatic hyperplasia) (Chronic) Former tobacco use (Chronic) Obesity (Chronic) Accelerated essential hypertension (Resolved) C. 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 Horacio Avina MD) Smoking Status: Former smoker ROS Const Const: Positive for other; negative for fatigue, weakness, headache(s), frequent falls, difficulty sleeping or excessive sweating Eyes Eyes: Negative for loss of peripheral vision, transient loss of vision, blurry vision, double vision or tunnel vision ENT ENT: Negative for headache(s), dizziness, Nosebleed/epistaxis or balance problems Cardio Chest Pain: No Palpitations: No Edema: None Muscle aches with walking: None Resp Respiratory: Negative for SOB with activity, SOB at rest, SOB orthopnea\SOB lying down, Cough or paroxysmal nocturnal dyspnea GI GI: Negative nausea, vomiting, heartburn or black,tarry stools : Negative for hematuria Musc Musc: Negative for muscle aches/ myalgia, muscle weakness, joint pain or balance problems Skin Skin: Negative non-healing lesions, rash or unusual bruising Neuro Neuro: Positive for vertigo (feels better doing PT); negative for dizziness, lightheadedness, near syncope, syncope, orthostatic symptoms, frequent falls, headache(s), weakness, blurry vision, double vision or lack of coordination Giovani Hematologic/Lymphatic: Negative for easy bleeding or easy bruising Endo Endo: Negative for fatigue, excessive sweating or increased thirst/drinking Psych Psych: Negative for anxiety or depression Allergy Allergy/Immunology: Negative for hives, Negative for rash Cardiology Exam Const Appearance: cooperative, healthy appearing, no acute distress, well developed and well groomed Nutritional Appearance: average body habitus and well nourished Orientation: alert, awake and oriented x3 Head Head: normal to inspection, normocephalic and atraumatic Ears: hearing grossly normal bilaterally and external ears normal Nose: external nose normal, nares normal, nasal mucous membranes and turbinates normal, septum normal, no nasal discharge Face and Sinus: face symmetric Mouth: oral mucosae normal, tongue normal, oropharynx normal and moist mucous membranes Teeth and gingiva: dentition normal Throat: posterior oropharynx normal, tonsils normal and uvula midline Eyes General: appearance normal, both eyes and all related structures Eyelids: eyelids normal Conjunctivae: conjunctivae normal Pupils: PERRL, normal by confrontation and accommodation normal EOM: EOM intact bilaterally Neck Neck: normal visual inspection, trachea midline and no JVD JVD: +5 Carotids: normal carotid upstroke and bounding pulses Chest Chest inspection: normal inspection of the chest, symmetric chest movement and normal respiratory effort Auscultation: Bilateral: Clear to Auscultation Cardio Palpation: normal PMI Rate: regular rate Rhythm: regular rhythm Heart sounds: S1 normal, S2 normal and normal, physiologic split S2; negative rub, gallop or murmur GI GI: normal to inspection, soft, no hepatosplenomegaly and bowel sounds present Neuro General: alert, awake, oriented x3, gait normal, moves all extremities and no focal sensory deficit Skin Skin: no rashes or lesions noted Extremities Pulses: Normal: Right Femoral Pulse, Left Femoral Pulse, Right Dorsalis Pedis Pulse, Left Dorsalis Pedis Pulse, Right Posterior Tibial Pulse, Left Posterior Tibial Pulse, Right Radial Pulse, Left Radial Pulse Lower Extremity Edema: None: Bilateral Musculoskel Musculoskeletal: No joint tenderness Psych Psychological: normal affect Assessment & Plan 1. 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 He says that he has had no use for the above and his last interrogations have not demonstrate any significant abnormalities. He has remained in sinus rhythm with his last interrogation in August 2019. I would recommend based on his request that the above the explanted. Risk benefits alternatives were explained to him he understands and agrees to proceed. Orders Orders: Loop Recorder 1 Week Basic Metabolic Profile (BMP) Today 2. Essential (primary) hypertension I10 Plan He does have a history of hypertension. His blood pressure appears to be under good control at this particular time I would not recommend that we make any changes. His last creatinine was noted to be 1.0 and a potassium of 4. 3. Pure hypercholesterolemia E78.00 Plan His most recent lipid profile demonstrated total cholesterol 160, HDL of 39 and LDL of 100. No other changes were made respect to the above. Plan Detail Follow Up prn Coding Level of Care Code Off vis,est,level 3 Diagnoses History of loop recorder Z98.890 Essential (primary) hypertension I10 Pure hypercholesterolemia E78.00 ??Hyperlipidemia type: pure hypercholesterolemia Coding Level of Care Code Off vis,est,level 3 Diagnoses History of loop recorder Z98.890 Essential (primary) hypertension I10 Pure hypercholesterolemia E78.00 ??Hyperlipidemia type: pure hypercholesterolemia Supplemental Info Supplemental Information Diagnostics Electrocardiogram 02/10/19 Pacemaker Check 09/22/19 11/02/19 1118 <Electronically signed by Horacio Hooper> Date _ Horacio Avina MD
[2019-11-02 12:26] LABS: Anion Gap 4 (5-15); BUN 15 mg/dL (7-18); BUN/Creat Ratio 15.7 RATIO (10-20); Calcium,Total 8.8 mg/dL (8.5-10.1); Chloride 106 mmol/L (98-107); Creatinine, Serum 0.95 mg/dL (0.70-1.30); EST Glomerular Filtration Rate 80 mL/min (>60); Est Glom Filt Rate - Afr Amer 97 mL/min (>60); Glucose 96 mg/dL (74-106); Potassium 3.9 mmol/L (3.5-5.1); Sodium Level 141 mmol/L (136-145)
[2019-11-05 10:23] VITALS: BMI 29.9
--- NOTE | 2019-11-08 09:14 | CL.IE_ITS ---
Patient: ANTONETTE HARRIS Study Date: 11/08/2019 Performing: Horacio Avina MD : [id number] Age: 84 Gender: male PROCEDURES PERFORMED [id number] OF LOOP RECORDER INDICATIONS PROCEDURE DETAILS The patient was brought to the Catheterization Lab in the postabsorptive nonsedated state. Infor med consent was obtained prior to the procedure. Local anesthetic was given subcutaneously to the le ft subclavian region with Lidocaine 2%. Incision was made to the left subclavicular area. ICM Reveal LINQ was removed. Skin closure was completed with 4-0 Vicryl. Steri-strips applied to left subclavicu lar incision. The patient tolerated the procedure well. 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 PROCEDURE MEDICATIONS Versed 1 mg IV Oxygen: 2 L/min via nasal cannula Signed By Horacio Avina MD On 11/08/2019 09:13:49 Horacio Avina MD
== END 2019-11-08 10:30 | disposition home or self-care (01) ==
LOC: CLSP 07:35
PROVIDERS: PCP Internal Medicine; Referring Provider Internal Medicine Cardiovascular Disease; Visit Provider Internal Medicine Cardiovascular Disease
DX: R55 Syncope and collapse (principal); R00.2 Palpitations; Z45.09 Encounter for adjustment and management of other cardiac device; I34.1 Nonrheumatic mitral (valve) prolapse; I25.10 Atherosclerotic heart disease of native coronary artery without angina pectoris; I10 Essential (primary) hypertension; E78.5 Hyperlipidemia, unspecified; R42 Dizziness and giddiness; N40.0 Benign prostatic hyperplasia without lower urinary tract symptoms; G47.33 Obstructive sleep apnea (adult) (pediatric); F32.9 Major depressive disorder, single episode, unspecified; F41.9 Anxiety disorder, unspecified; E66.9 Obesity, unspecified; Z79.82 Long term (current) use of aspirin; Z79.899 Other long term (current) drug therapy; Z87.891 Personal history of nicotine dependence; Z96.612 Presence of left artificial shoulder joint
CPT/HCPCS: 33286; 36415; 80048; 99152; 99153; J7040

== ENCOUNTER 2020-02-02 15:30 | Outpatient (RCR) | payer MEDICARE, BC, SELFPAY ==
[2019-11-05 10:23] VITALS: BMI 29.9
--- NOTE | 2020-01-12 15:45 | HP.PTEVAL_ITS ---
Patient's Visit Information ANTONETTE HARRIS is a 84 year old M referred to Physical Therapy by Dr. Edward Serrano DO with a diagnosis of R impingement tendonitis.. Date of Evaluation: 01/12/20 Physical Therapist: Ashok Nolasco, DPT, OCS, CSCS - Visit Plan Frequency: f/u three weeks. Plan: Educated patient on hammer theory and precuations and HEP and will f/u in 3 weeks unless worsens prior for progression/d/c - Subjective R shoulder hurt since early November. Woke up one morning with pain. Had MRI adn got inflammation. Top of R shoulder and down upper arm to elbow. Hurt constant before cortisone injection which was end of November. Last two weeks is only there if he moves a certain way. Doesn't linger anymore. Reaching out to set cup on counter can hurt. Activities normal until it hurts. Does ex with R shoulder that he learned for L. Sleep is not a problem since the injection. Injection helped 95%. - Pain R shoulder Pain Intensity (Out of 10): 0 Pain Intensity Range: 0, 6 - Objective Posture is forward head flexed cervical and forward scap. Tender to palpation supraspinatus insertion R. AROM B UE is symmetrical adn WFL, end range R ext r otation and flexion is slightly trasniently painful. But functional. - ext rotation lag test. - drop arm test. - sulcus test. - apprehension test. AROM is symmetrical with L and 60 ext rotation and 50 IR at 80 abd. 140 flexion and abduction. reflexes 2/3 bi and tri. Sensation UE WNL to gross light touch. Strength 4/5 B RC and elevators, some pain with flexion, abductiona nd ext rotation. Bi and tri strength 4+ and painfree. - Goals Goal 1:: Patient feel 98% improved Goal Time Frame: 2-4 Weeks Goal 2:: Pt I in mnagement of condition to prevent recurrence. Goal Time Frame: 4-6 Weeks - Rehabilitation Potential Physical Therapy Diagnosis: R supraspinatus tendonitis Rehabilitation Potential: Good - Anticipated Interventions Patient/Client Instruction: Educate patient on: Condition, Plan of Care For the Purpose of:: To increase tolerance to activity/condition/position Therapeutic Exercise to Include: Strength training, Postural training For the Purpose of:: To improve muscle performance and motor function Thank you for the opportunity to evaluate your patient. For Medicare and Medicare HMO plans, please review the plan of care and approve it. It will need to be FAXED BACK to us at [phone] for Medicare purposes. For Medicare only, by signing this I certify the plan of care. Please let me know if there are questions or concerns regarding this plan of care. Physician Signature: Date:
--- NOTE | 2020-02-02 15:40 | HP.PTDCSUM ---
It has been my pleasure to treat ANTONETTE HARRIS referred by Dr. Edward Serrano DO, with the diagnosis of R impingement tendonitis. for a total of 2 visit(s). Discharge Date: 02/02/20 Please see the following information for a summary of their discharge status. Subjective: No pain. Doing great. That is all it took was the changes at home. Normal. R shoulder Pain Intensity (Out of 10): 0 % Improvement: 100 Objective/Function: Fulla nd symmterical AROM shoulder without pain. 4+/5 strength shoulder elevation flexion, abd, empty can, and biceps and triceps and ext rotation/IR without pain on R. IR left slightly limited vs R but this is due to previous surgery. Pt without questions and wants discharge today. Goal 1:: Patient feel 98% improved Goal Progress: Goal Met Goal 2:: Pt I in mnagement of condition to prevent recurrence. Goal Progress: Goal Met Plan: d/c If there are questions or concerns regarding this patient's physical therapy, please feel free to call me at [phone]. Thank you for the referral of this patient. Sincerely, Ashok Nolasco, DPT, OCS, CSCS
== END 2020-02-02 19:00 | disposition home or self-care (01) ==
LOC: PT 15:30
PROVIDERS: PCP Internal Medicine; Referring Provider Orthopaedic Surgery; Visit Provider Orthopaedic Surgery
DX: M19.011 Primary osteoarthritis, right shoulder (principal); M75.41 Impingement syndrome of right shoulder; S46.011D Strain of muscle(s) and tendon(s) of the rotator cuff of right shoulder, subsequent encounter
CPT/HCPCS: 97161; 97164; 97530

== ENCOUNTER 2020-07-17 11:30 | Outpatient (RCR) | payer MEDICARE, BC, SELFPAY ==
[2019-11-05 10:23] VITALS: BMI 29.9
--- NOTE | 2020-06-27 14:36 | HP.PTEVAL_ITS ---
Patient's Visit Information ANTONETTE HARRIS is a 85 year old M referred to Physical Therapy by Dr. Edward Serrano DO with a diagnosis of OA R shoulder, cervicalgia.. Date of Evaluation: 06/27/20 Physical Therapist: Ashok Nolasco, DPT, OCS, CSCS - Visit Plan Frequency: 3x /Week Duration: 2-4 Weeks Plan: 3x/week for 2-4 weeks for. 1. MH neck and L UT. 2. US thermal to same and stretch L UT and cervical muscles, sTM same. 3. neck strength and PROM - Subjective Has pain in posterior neck and down posterior L UE to elbow. Not sure what staerted it. X ray showed calcium deposit on neck. Pain staarted 2 weeks ago out of nowhere waking up with pain. Would wake up with pain, do exercises and it would go away untila week ago. Does neck ROM and Leg exercises at home and band pulls and stationary bike. This is a new pain to him as far as he can remember. Pain is up to 7/10 in morning with exercises and then settles down to 3/10 in arm and neck whcih is where it is currently. Sleep is not interrupted and he sleeps on his back.Uses cpap. Activities at home are normal but care must be taken and can be painful. Does the housecleaning in 2.5 hours usually but took all day yesterday. Basic ADLs are getting done slowly and carefully. - Pain neck/L shoulder Pain Intensity (Out of 10): 3 Pain Intensity Range: 3, 7 - Objective Head is forward adn scap protracted adn looking down is tendency. Can fix to decent posture with VC but overretreaction causes pain. Cervical aROM ext 25 wihtout pain, flexion 40 with L UT stretch pain. R SB gives L UT pain. Rotations 40 B and no pain. reflexes 2/3 bi and tri. Sensation UE WNL to gross light touch. Strength 4/5 in UE without myotomal abnormalities or shoulder pain. Tender to palpation in L UT. Shoulder aROM slightly limited L vs R and painful posterior shoulder and UT with elevation at 125 vs 130 on R. Rotations shoulder WNL and painfree. Walks and functioning I and well. - Goals Goal 1:: No pain or tenderness in L neck Goal Time Frame: 4-6 Weeks Goal 2:: Pt feel back to 85% normal with neck/shoulder pain at 1/10 at worst and intermittent. Goal Time Frame: 4-6 Weeks Goal 3:: Quick dash score 15 or better. Goal Time Frame: 4-6 Weeks - Rehabilitation Potential Physical Therapy Diagnosis: cervicalgia likely soft tissue related, Rehabilitation Potential: Fair - Anticipated Interventions Patient/Client Instruction: Educate patient on: Plan of Care For the Purpose of:: To decrease pain, To increase ROM, To improve muscle performance and motor function, To improve ability of physical actions for home/community/work/leisure Therapeutic Exercise to Include: Strength training, Flexibilty training, Gait and locomotor training, Neuromotor development, Passive ROM, Active ROM, Scapular Strength/Stabilization For the Purpose of:: To decrease pain, To increase ROM, To improve nutrient delivery to tissue, To improve muscle performance and motor function, To increase tolerance to activity/condition/position Manual Therapy Techniques to Include: Soft tissue mobilization For the Purpose of:: To decrease pain, To improve nutrient delivery to tissue Ultrasound (thermal/non thermal): Yes - thermal For the Purpose of:: To improve nutrient delivery to tissue Thank you for the opportunity to evaluate your patient. For Medicare and Medicare HMO plans, please review the plan of care and approve it. It will need to be FAXED BACK to us at [phone] for Medicare purposes. For Medicare only, by signing this I certify the plan of care. Please let me know if there are questions or concerns regarding this plan of care. Physician Signature: Date:
--- NOTE | 2020-07-17 12:22 | HP.PTREVAL_ITS ---
Dr. Edward Serrano, DO, It has been my pleasure to treat ANTONETTE HARRIS over the last 7 visits for OA R shoulder, cervicalgia.. Please see the progress note below for an update on the physical therapy plan of care! Subjective: Feels good for 1-2 hours then right back to 3-4/10 intermittent without reason radiating down L arm and scapula. Doing chin tucks at home and not effective for paion release. Sleep is not a problem.Digit 4/5 on L hand tingle intermittently. Will see Dr. Villanueva next Friday. Activities at home are normal, he is just in pain much of day. Objective/Function: 25 L rot c/s and 40 R rot, pain left, 30 ext , SB very llimited L not R. UE AROM L shoulder 130 flexion and 25 ext rotation adn PSIS IR without pain. Pain is in L shoulder and R neck when SB L. Overall osture is protected adn not much different than prior to treatment. Strength L UE 4-/5 without aahz6lpit abnormaities. Due to lack of progress, recommend patient return to doctor for next option, will see specialist next week. Plan Plan: Pt to doctor 07/24 client experience specialist and willc all after that for continuation or d/c. Goals Goal 1:: No pain or tenderness in L neck Goal Time Frame: 4-6 Weeks Goal Progress: Not Progressing Goal 2:: Pt feel back to 85% normal with neck/shoulder pain at 1/10 at worst and intermittent. Goal Time Frame: 4-6 Weeks Goal Progress: Not Progressing Goal 3:: Quick dash score 15 or better. Goal Time Frame: 4-6 Weeks Goal Progress: Not Progressing Anticipated Interventions Patient/Client Instruction: Educate patient on: Plan of Care For the Purpose of:: To decrease pain, To increase ROM, To improve muscle performance and motor function, To improve ability of physical actions for home/community/work/leisure Therapeutic Exercise to Include: Strength training, Flexibilty training, Gait and locomotor training, Neuromotor development, Passive ROM, Active ROM, Scapular Strength/Stabilization For the Purpose of:: To decrease pain, To increase ROM, To improve nutrient delivery to tissue, To improve muscle performance and motor function, To increase tolerance to activity/condition/position Manual Therapy Techniques to Include: Soft tissue mobilization For the Purpose of:: To decrease pain, To improve nutrient delivery to tissue Ultrasound (thermal/non thermal): Yes - thermal For the Purpose of:: To improve nutrient delivery to tissue Please do not hesitate to contact me at [phone] by phone or if you have questions or concerns regarding this new plan of care! Sincerely, Ashok Nolasco, DPT, OCS, CSCS
--- NOTE | 2020-09-13 13:26 | HP.PT.NRP ---
ANTONETTE HARRIS was seen in my office for initial evaluation on 06/27/20. The following Plan of Care was established for this patient: Initial Frequency: 3x /Week Initial Duration: 2-4 Weeks Patient/Client Instruction: Educate patient on: Plan of Care For the Purpose of:: To decrease pain, To increase ROM, To improve muscle performance and motor function, To improve ability of physical actions for home/community/work/leisure Therapeutic Exercise to Include: Strength training, Flexibilty training, Gait and locomotor training, Neuromotor development, Passive ROM, Active ROM, Scapular Strength/Stabilization For the Purpose of:: To decrease pain, To increase ROM, To improve nutrient delivery to tissue, To improve muscle performance and motor function, To increase tolerance to activity/condition/position Manual Therapy Techniques to Include: Soft tissue mobilization For the Purpose of:: To decrease pain, To improve nutrient delivery to tissue Ultrasound (thermal/non thermal): Yes - thermal For the Purpose of:: To improve nutrient delivery to tissue This patient was last seen in our office 07/17/20. Pertinent comments regarding their Physical therapy will appear below: Pt seen 7 visits of POC adn was only 10% better. Due to this, he was sent back to doctor and was to call if he needed to return. at this point, it has been over two months and I will discontinue. At this point I will be discontinuing this patient from physical therapy. I would be happy to see this patient again in the future if found appropriate by the physician. Thank you! Ashok Nolasco, DPT, OCS, CSCS
== END 2020-07-17 19:00 | disposition home or self-care (01) ==
LOC: PT 11:30
PROVIDERS: PCP Internal Medicine; Referring Provider Orthopaedic Surgery; Visit Provider Orthopaedic Surgery
DX: M19.011 Primary osteoarthritis, right shoulder (principal); M54.2 Cervicalgia
CPT/HCPCS: 97035; 97140; 97161; 97164

== ENCOUNTER → 2020-08-09 12:52 | Outpatient (CLI) | payer MEDICARE, BC, SELFPAY ==
[2019-11-05 10:23] VITALS: BMI 29.9
--- NOTE | 2020-08-09 12:55 | VDLE_ITS ---
Reason For Study: Pain and swelling RIGHT LEFT CFV is compressible, spontaneous, phasic, CFV is compressible, spontaneous, phasic, competent and demonstrates normal competent, and demonstrates normal augmentation. augmentation. Procedure FV is compressible, spontaneous, phasic, Exam performed in department. competent and demonstrates normal This is a venous duplex using B-mode, color augmentation. flow and spectral Doppler. POP V is compressible, spontaneous, phasic, A preliminary report was called and/or faxed competent and demonstrates normal to Dr. Dominguez/ Santy. augmentation. T/P Trunk is compressible. PTV is compressible. LT PerV is compressible. Lt GSV in the mid/distal calf is dilated and non compressible consistent with acute SVT, Lt GSV in the thigh is compressible. VL/Venous Duplex US, Unilateral Interpretation Summary There is no evidence of left lower extremity deep vein thrombosis. Superficial thrombophlebitis left great saphenous vein mid to distal calf. Normal flow patterns right common femoral vein Ordering Physician: Samia Dominguez Referring Physician: Samia Dominguez Performed By: Edyta Aden, RALPH, RVT
== END ==
PROVIDERS: PCP Internal Medicine; Referring Provider Internal Medicine; Visit Provider Internal Medicine
DX: M79.662 Pain in left lower leg (principal); M79.89 Other specified soft tissue disorders
CPT/HCPCS: 93971

== ENCOUNTER → 2020-10-31 10:16 | Outpatient (CLI) | payer MEDICARE, BC, SELFPAY ==
[2019-11-05 10:23] VITALS: BMI 29.9
--- NOTE | 2020-10-31 10:19 | VDLE_ITS ---
Reason For Study: swelling RIGHT GSV is normal. CFV is compressible, spontaneous, phasic, competent and demonstrates normal augmentation. FV is compressible, spontaneous, phasic, competent and demonstrates normal augmentation. POP V is compressible, spontaneous, phasic, competent and demonstrates normal augmentation. T/P Trunk is compressible. PTV is compressible. RT PerV is compressible. Procedure This is a venous duplex using B-mode, color flow and spectral Doppler. Exam performed in department. The exam was abbreviated due to the COVID 19 protocol. The exam was diagnostic. A preliminary report was called and/or faxed to Dr. Dominguez. VL/Venous Duplex US, Unilateral Interpretation Summary Deep veins of the right lower extremity are patent and compressible segmentally . There is no evidence of right lower extremity deep vein thrombosis. Valvular competence krystal ears intact within the proximal deep venous system on the right . The right great saphenous vein a ppears patent and compressible segmentally. Ordering Physician: Samia Dominguez Performed By: Aleksander Hunter RVT
== END ==
PROVIDERS: PCP Internal Medicine; Referring Provider Internal Medicine; Visit Provider Internal Medicine
DX: M79.89 Other specified soft tissue disorders (principal)
CPT/HCPCS: 93971

== ENCOUNTER → 2020-11-17 12:42 | Outpatient (CLI) | payer MEDICARE, BC, SELFPAY ==
[2019-11-05 10:23] VITALS: BMI 29.9
--- NOTE | 2020-11-17 13:01 | CT_ITS ---
STUDY: CT ABDOMEN AND PELVIS WITH CONTRAST REASON FOR EXAM: Male, 85 years old. Right lower quadrant pain. Evaluate for incarcerated hernia. RADIATION DOSAGE (If Supplied By Facility): CTDIvol = ( 18.72 ) mGy, DLP = ( 1175.97 ) mGycm TECHNIQUE: Transaxial images were obtained from the dome of the diaphragm to the symphysis pubis with oral contrast. 100 ml of ISOVUE 37 contrast was administered. Sagittal and coronal images were reconstructed. Individualized dose optimization techniques were used for this CT. COMPARISON: 06/23/18 FINDINGS: There is atelectasis at the lung bases. The visualized portions of the heart and pericardium are within normal limits. The patient is status post cholecystectomy. The liver is within normal limits. There are no suspicious hepatic lesions. The spleen is normal in size. The pancreas is within normal limits. The adrenal glands are within normal limits. There are no renal or ureteral stones. There is no hydronephrosis. There are stable bilateral simple renal cysts. There is a stable small hiatal hernia. There is no bowel obstruction or inflammation. There are colonic diverticula without evidence of diverticulitis. The appendix is not visualized, but there are no findings to suggest acute appendicitis. There is no evidence of a bowel containing hernia. The aorta is normal in caliber. Again noted are atherosclerotic calcifications in the aorta. There is no abdominal or pelvic free air, free fluid, fluid collection or lymphadenopathy. There are no destructive osseous lesions. CT/Abdomen/Pelvis WITH Contrast IMPRESSION: No bowel obstruction or inflammation. Colonic diverticula without evidence of diverticulitis. Small hiatal hernia. No bowel containing hernia. Electronically Signed: Anmol Box MD at 16:47 EDT Tel , Service support ,
[2020-11-17 13:33] LABS: Absolute Lymphocyte Count 1.45 X10^3/uL (0.83-4.51); Absolute Neutrophil Count 3.4 X10^3/uL (2.0-7.7); Basophil# 0.02 X10^3/uL; Basophil% 0.4 % (0-1); Eosinophil# 0.12 X10^3/uL; Eosinophils% 2.2 % (0-5); Hematocrit 41.3 % (40-54); Hemoglobin 13.6 g/dL (13.0-16.5); Lymphocyte # 1.45 X10^3/ul (0.83-4.51); Lymphocyte % 26.6 % (19-41); Mean Corp Hgb Conc 32.9 g/dL (32-36); Mean Corpuscular Hgb 30.1 pg (27.0-32.0); Mean Corpuscular Volume 91.4 fL (80-94); Mean Platelet Vol. 10.3 fl (6.2-12.0); Monocyte# 0.44 X10^3/uL; Monocyte% 8.1 % (0-10); NRBC Flagged by Analyzer 0 % (0-5); Neutrophil # 3.41 X10^3/uL (2.7-7.7); Neutrophil % 62.3 % (47-70); Platelet Count 152 K/mm3 (150-450); RBC Distribution Width CV 12.8 % (11.6-14.6); RBC Distribution Width SD 42.7 fl (35.1-43.9); Red Blood Count 4.52 M/mm3 (4.6-6.2); White Blood Count 5.5 K/mm3 (4.4-11.0)
[2020-11-17 14:01] LABS: ALB/GLOB Ratio 1.1 RATIO (0.9-2.4); AST(SGOT) 21 U/L (15-37); Alanine Aminotransfer ALT/SGPT 29 U/L (16-61); Albumin, Serum 3.6 g/dL (3.2-5.0); Alkaline Phosphatase 56 U/L (45-117); Anion Gap 6 (5-15); BUN 19 mg/dL (7-18); BUN/Creat Ratio 21.7 RATIO (10-20); Calcium,Total 8.6 mg/dL (8.5-10.1); Chloride 104 mmol/L (98-107); Creatinine, Serum 0.88 mg/dL (0.70-1.30); EST Glomerular Filtration Rate 88 mL/min (>60); Est Glom Filt Rate - Afr Amer 106 mL/min (>60); Globulin 3.3 g/dL (2.2-4.2); Glucose 84 mg/dL (74-106); Protein, Total 6.9 g/dL (6.4-8.2); Sodium Level 140 mmol/L (136-145)
[2020-11-17 15:06] LABS: CREATININE FINGERSTICK < 0.6 mg/dL (0.70-1.30); EGFR FINGERSTICK > 60.0000 mL/min (>60)
== END ==
PROVIDERS: PCP Internal Medicine; Referring Provider Internal Medicine; Visit Provider Internal Medicine
DX: R10.30 Lower abdominal pain, unspecified (principal)
CPT/HCPCS: 74177; 80053; 85025; Q9967; A4216

== ENCOUNTER → 2020-11-20 13:09 | Outpatient (CLI) | payer MEDICARE, BC, SELFPAY ==
[2019-11-05 10:23] VITALS: BMI 29.9
--- NOTE | 2020-11-20 13:11 | VDLE_ITS ---
Reason For Study: Swelling RIGHT LEFT GSV is normal. CFV is compressible, spontaneous, phasic, CFV is compressible, spontaneous, phasic, competent, and demonstrates normal competent and demonstrates normal augmentation. augmentation. FV is compressible, spontaneous, phasic, competent and demonstrates normal augmentation. POP V is compressible, spontaneous, phasic, competent and demonstrates normal augmentation. T/P Trunk is compressible. PTV is compressible. RT PerV is compressible. Nonvascularized hypoechoic structure noted around prox calf muscle. Noted to be in area of pain. Procedure This is a venous duplex using B-mode, color flow and spectral Doppler. Exam performed in department. A preliminary report was called and/or faxed to [facility]. VL/Venous Duplex US, Unilateral Interpretation Summary Deep veins of the right lower extremity are patent and compressible segmentally . There is no evidence of right lower extremity deep vein thrombosis. Valvular competence krystal ears intact within the proximal deep venous system on the right . The right great saphenous vein a ppears patent and compressible segmentally. A non-vascular, hypoechoic structure is noted in the proximal right calf. This may represent a seroma or hematoma. Clinical correlation is advised. Ordering Physician: Samia Dominguez Referring Physician: Samia Dominguez Performed By: Mel Mckeon RVT
== END ==
PROVIDERS: PCP Internal Medicine; Referring Provider Internal Medicine; Visit Provider Internal Medicine
DX: R25.2 Cramp and spasm (principal); M79.89 Other specified soft tissue disorders
CPT/HCPCS: 93971

== ENCOUNTER → 2020-11-30 10:14 | Outpatient (CLI) | payer MEDICARE, BC, SELFPAY ==
[2019-11-05 10:23] VITALS: BMI 29.9
--- NOTE | 2020-11-30 10:45 | MRI_ITS ---
STUDY: MRI LOWER EXTREMITY RIGHT TIBIA/FIBULA WITH AND WITHOUT CONTRAST REASON FOR EXAM: Palpable abnormality at the posterior aspect of the knee, pain extending down right leg from knee to toes, symptoms for 2 months. TECHNIQUE: Standardized fat and water weighted pulse sequences were obtained in all 3 orthogonal planes, post contrast administration. IV 18ml Dotarem was administered for the contrast portion of the examination. COMPARISON: None. FINDINGS: Normal visualized tibia and fibula, without a periosteal, cortical or cancellous marrow abnormality. Normal visualized anterior, lateral, and posterior calf compartments, with normal muscles and intermuscular septa. There is no intramuscular hematoma. There is edema in the subcutis adipose space. There is extravasated fluid from a ruptured popliteal cyst extending along the myocutaneous fascial plane of the medial gastrocnemius (inversion recovery axial images 9-23). There is no discrete soft tissue mass or cyst corresponding to the skin marker at the posterior aspect of the knee (T1 axial images 3, 4). There is a joint effusion of the right knee with contrast enhancing synovitis (postcontrast T1 axial images 3-10). MRI/Lower Ext Joint Only W/WO Cont IMPRESSION: Extravasated fluid from a ruptured popliteal cyst extending along the myotendinous fascial plane of the medial gastrocnemius. Right knee joint effusion with contrast enhancing synovitis. Edema in the subcutis adipose space without discrete soft tissue mass. Electronically Signed: Anton Venegas MD at 11:52 EDT Tel , Service support ,
== END ==
PROVIDERS: PCP Internal Medicine; Referring Provider Internal Medicine; Visit Provider Internal Medicine
DX: R22.41 Localized swelling, mass and lump, right lower limb (principal)
CPT/HCPCS: 73723; A9575

== ENCOUNTER → 2021-01-25 | Outpatient (CLI) | payer MEDICARE, BC, SELFPAY | END | disposition home or self-care (01) | LOC: LABSPEC 15:36 | PROVIDERS: PCP Internal Medicine; Visit Provider Internal Medicine | DX: R50.9 Fever, unspecified (principal) | CPT/HCPCS: 87635; U0005; U0003 ==

== ENCOUNTER 2021-02-15 12:00 | Outpatient (RCR) | payer MEDICARE, BC, SELFPAY ==
--- NOTE | 2021-01-15 10:08 | HP.PTEVAL_ITS ---
Patient's Visit Information ANTONETTE HARRIS is a 85 year old M referred to Physical Therapy by Dr. Dick Samano DO with a diagnosis of R knee pain.OA, cyst. Date of Evaluation: 01/15/21 Physical Therapist: Ashok Nolasco, DPT, OCS, CSCS - Visit Plan Frequency: 2-3x /Week Duration: 4-6 Weeks Plan: 2-3x/week for 2-4 weeks for. 1. rollout and stretch quad and HS R, leg pull. 2. Strength NWB to WB R hip and knee. 3. ice, TENS as needed - Subjective R knee had bakers cyst and it hurt laterally and anteriorly and it swelled up. Now pain radiates lateral lower leg and into ankle. got brace for knee and swelling went down but it still hurts. Pain is still present and 2/10 worse with activity on feet to 6/10 until her rests. Sleeping is OK. When it hurts, he has to be careful with house cleaning and cannot now do the whole thing wi thout resting. Needs to sit. No specific knee exercises. Does some bike daily. No pain meds or any other treatment other than brace. Offered cortisone but not sure it would help. Been in brace for 4 weeks. 50% better. No LBP or pain above knee. Had tingling in toes before swelling went away - Pain R knee Pain Intensity (Out of 10): 2 Pain Intensity Range: 0, 6 - Objective Walking without antalgia I todasy no AD and good balance. Trasnfers are I bed and chair. LB AROM WFL, stiff in all directions but not painful. quads and HS are mod tight on B LE. Tender to palpation, lateral joint line and posterior over cyst. AROM R knee 0-120 with pain at end flexion anteriorly. L knee 0- 119. Hip AROM WFL but stiff in rotations B . Ankle AROM WFL. Strength hip rotations and ext 3+ B. flexion 4-. knee flexion and extension 4- R and 4 L, mild discomfort with flexion on R posterio. - varus and valgus. - bounce home, pain with end range OP on ext R. - ant drawer - Balance/Special Test Scores Lower Extremity Functional Score: 66 - Goals Goal 1:: I approp HEP to limit future pain problems Goal Time Frame: 2-4 Weeks Goal 2:: Pain in R knee 0-1/10 at all times and manageable Goal Time Frame: 2-4 Weeks Goal 3:: Clean house without increased pain Goal Time Frame: 2-4 Weeks - Rehabilitation Potential Physical Therapy Diagnosis: R knee pain limmiting function Rehabilitation Potential: Fair - Anticipated Interventions Patient/Client Instruction: Educate patient on: Condition, Plan of Care For the Purpose of:: To decrease pain, To increase ROM, To improve muscle performance and motor function, To increase tolerance to activity/condition/position Therapeutic Exercise to Include: Strength training, Flexibilty training, Passive ROM, Active ROM For the Purpose of:: To decrease pain, To increase ROM, To improve muscle performance and motor function, To increase tolerance to activity/condi tion/position, To improve gait and locomotor functions Manual Therapy Techniques to Include: Mobilization, Passive ROM, Soft tissue mobilization For the Purpose of:: To decrease pain, To increase ROM, To improve muscle performance and motor function TENS: Yes Cryotherapy (ice pack, ice massage): Yes For the Purpose of:: To decrease pain Thank you for the opportunity to evaluate your patient. For Medicare and Medicare HMO plans, please review the plan of care and approve it. It will need to be FAXED BACK to us at [phone] for Medicare purposes. For Medicare only, by signing this I certify the plan of care. Please let me know if there are questions or concerns regarding this plan of care. Physician Signature: Date:
--- NOTE | 2021-04-02 07:27 | HP.PT.NRP ---
ANTONETTE HARRIS was seen in my office for initial evaluation on 01/15/21. The following Plan of Care was established for this patient: Initial Frequency: 2-3x /Week Initial Duration: 4-6 Weeks Patient/Client Instruction: Educate patient on: Condition, Plan of Care For the Purpose of:: To decrease pain, To increase ROM, To improve muscle performance and motor function, To increase tolerance to activity/condition/position Therapeutic Exercise to Include: Strength training, Flexibilty training, Passive ROM, Active ROM For the Purpose of:: To decrease pain, To increase ROM, To improve muscle performance and motor function, To increase tolerance to activity/condition/position, To improve gait and locomotor functions Manual Therapy Techniques to Include: Mobilization, Passive ROM, Soft tissue mobilization For the Purpose of:: To decrease pain, To increase ROM, To improve muscle performance and motor function TENS: Yes Cryotherapy (ice pack, ice massage): Yes For the Purpose of:: To decrease pain This patient was last seen in our office 02/15/21. Pertinent comments regarding their Physical therapy will appear below: Pt seen 10 visits and was 85% better. He cancelled his last two visits and neglected to reschexdule. At this point, I will discontinue due to nonattendance. At this point I will be discontinuing this patient from physical therapy. I would be happy to see this patient again in the future if found appropriate by the physician. Thank you! Ashok Nolasco, DPT, OCS, CSCS Balance/Gait/Functional tests - Balance/Special Test Scores Lower Extremity Functional Score: 66
== END 2021-02-15 19:00 | disposition home or self-care (01) ==
LOC: PT 12:00
PROVIDERS: PCP Internal Medicine; Referring Provider Student in an Organized Health Care Education/Training Program; Visit Provider Student in an Organized Health Care Education/Training Program
DX: M17.11 Unilateral primary osteoarthritis, right knee (principal); M71.21 Synovial cyst of popliteal space [Baker], right knee; M25.561 Pain in right knee
CPT/HCPCS: 97110; 97140; 97161; 97530

== ENCOUNTER 2021-02-22 15:12 | Outpatient (CLI) | payer MEDICARE, BC, SELFPAY ==
[2021-02-22] MEDS: 0.9% Saline Lock 10 ML Syringe IV (15:27)
[2021-02-22 15:30] VITALS: BP 155/57; PULSE 80; RESP 16; TEMP 37.4; O2SAT 97; BMI 29.6
[2021-02-22 16:13] VITALS: BP 132/57; PULSE 70; RESP 16; TEMP 36.8; O2SAT 97
[2021-02-22 17:10] VITALS: BP 142/60; PULSE 73; RESP 16; TEMP 36.7; O2SAT 100
== END 2021-02-22 17:10 | disposition home or self-care (01) ==
LOC: MS3OUT 15:13 → MS3 15:13
PROVIDERS: PCP Internal Medicine; Referring Provider Nurse Practitioner Adult Health; Visit Provider Nurse Practitioner Adult Health
DX: Z23 Encounter for immunization (principal); U07.1 COVID-19
CPT/HCPCS: J7050; M0245; Q0245; A4216

== ENCOUNTER → 2021-03-13 | Outpatient (CLI) | payer MEDICARE, BC, SELFPAY | END | disposition home or self-care (01) | PROVIDERS: PCP Internal Medicine; Visit Provider Otolaryngology Otolaryngology/Facial Plastic Surgery | DX: J32.9 Chronic sinusitis, unspecified (principal) | CPT/HCPCS: 87070; 87077; 87205 ==

== ENCOUNTER → 2021-03-15 12:20 | Outpatient (CLI) | payer MEDICARE, BC, SELFPAY ==
--- NOTE | 2021-03-15 12:41 | CT_ITS ---
STUDY: CT ABDOMEN AND PELVIS WITHOUT CONTRAST REASON FOR EXAM: Male, 86 years old. LOWER ABD PAIN. Right flank pain. RADIATION DOSAGE (If Supplied By Facility): CTDIvol = ( 8.77 ) mGy, DLP = ( 471.23 ) mGycm TECHNIQUE: Transaxial images were obtained from the dome of the diaphragm to the symphysis pubis without oral contrast, and without intravenous contrast. Sagittal and coronal images were reconstructed. Individualized dose optimization techniques were used for this CT. COMPARISON: Comparison is made with prior study 11/17/2020. FINDINGS: The visualized lung bases are unremarkable. Coronary artery calcification. Mild degree of pericardial thickening along the posterior left cardiac border. Normal liver. The patient is status post cholecystectomy. Normal spleen. There are pancreatic calcifications in the distribution of the ducts consistent with chronic pancreatitis. Normal bilateral adrenal glands. There is a 3.1 some air cyst in the lower pole of the right kidney. There is a 4.4 cm x 3.6 m cyst in the anterior midportion of the left kidney. There is a small hiatal hernia. Normal small intestine. There are multiple colonic diverticula consistent with diverticulosis. The appendix is visualized and appears normal. There is diffuse atherosclerotic calcification of the abdominal aorta, without a demonstrated aneurysm. Normal inferior vena cava. Normal retroperitoneum. Normal urinary bladder. There are prostatic calcifications. There is a small umbilical hernia containing fat. Small left inguinal hernia containing fat. There are degenerative changes of the visualized lumbar spine. CT/Abdomen/Pelvis without Cont IMPRESSION: Bilateral renal cysts. The patient is status post cholecystectomy. Sigmoid diverticulosis. Electronically Signed: Abdoulaye Garcia MD at 13:59 EST , Service support ,
[2021-03-15 12:56] LABS: Anion Gap 4 (5-15); BUN 18 mg/dL (7-18); BUN/Creat Ratio 19.3 RATIO (10-20); Calcium,Total 8.8 mg/dL (8.5-10.1); Chloride 102 mmol/L (98-107); Creatinine, Serum 0.94 mg/dL (0.70-1.30); EST Glomerular Filtration Rate 81 mL/min (>60); Est Glom Filt Rate - Afr Amer 98 mL/min (>60); Glucose 101 mg/dL (74-106); Sodium Level 137 mmol/L (136-145)
== END ==
PROVIDERS: PCP Internal Medicine; Visit Provider Internal Medicine
DX: M54.50 Low back pain, unspecified (principal); R10.30 Lower abdominal pain, unspecified
CPT/HCPCS: 36415; 74176; 80048

== ENCOUNTER → 2021-08-27 | Outpatient (CLI) | payer MEDICARE, BC, SELFPAY ==
--- NOTE | 2021-08-27 08:35 | RAD_ITS ---
STUDY: X-RAY - ESOPHAGUS (BARIUM SWALLOW) WITH FLUOROSCOPY REASON FOR EXAM: Male, 86 years old. DYSPHAGIA TECHNIQUE: 17 view(s) of the esophagus were obtained following swallowing of barium. FLUOROSCOPY TIME (if supplied): (44 seconds) minutes/seconds COMPARISON: None. FINDINGS: There is no demonstrated esophageal foreign body. There is no demonstrated stricture or mucosal abnormality. Normal gastroesophageal junction, without a demonstrated hiatal hernia. The patient ingested a 12 mm tablet of barium without any difficulty. There is atherosclerotic calcification of the aortic arch with tortuosity of the descending aorta. Normal visualized pulmonary parenchyma. There are diffuse degenerative changes of the visualized thoracic spine. RAD/Esophagus Single Contrast IMPRESSION: Normal plain film x-ray examination (barium swallow) of the esophagus. Electronically Signed: Abdoulaye Garcia MD at 10:33 EDT ,
== END | disposition home or self-care (01) ==
LOC: RAD 08:29
PROVIDERS: PCP Internal Medicine; Referring Provider Internal Medicine; Visit Provider Internal Medicine
DX: R13.10 Dysphagia, unspecified (principal)
CPT/HCPCS: 74220

== ENCOUNTER → 2021-11-05 | Outpatient (CLI) | payer MEDICARE, SELFPAY | END | disposition home or self-care (01) | PROVIDERS: PCP Internal Medicine; Visit Provider Internal Medicine | DX: S40.021A Contusion of right upper arm, initial encounter (principal); X58.XXXA Exposure to other specified factors, initial encounter ==

== ENCOUNTER → 2021-11-05 | Outpatient (CLI) | payer MEDICARE, BC, SELFPAY ==
--- NOTE | 2021-11-05 15:54 | VDUE_ITS ---
Reason For Study: Right arm pain Right Proximal Right jugular vein is spontaneous, widely patent, phasic, with no intraluminal echogenicity noted. Right subclavian vein is spontaneous, widely patent, phasic, with no intraluminal echogenicity noted. Right Lower Arm Right radial vein is compressible. Right ulnar vein is compressible. Right Arm Right axillary vein is spontaneous, patent, phasic, competent, compressible and demonstrates augmentation. Right brachial vein is compressible. Right cephalic vein is compressible. Right basilic vein is compressible. Nonvascular structure noted at the elbow. Patient Safety Preliminary sent to [facility]. VL/Venous Duplex US, Unilateral Interpretation Summary No evidence for acute deep venous thrombosis[right] upper extremity with patent and compressible cephalic and basilic veins. Superficial non vascular structure emani orlando-- clinical correlation would be appropriate Ordering Physician: Samia Dominguez Referring Physician: Samia Dominguez Performed By: Mel Mckeon RVT ?
[2021-11-05 17:02] LABS: Absolute Lymphocyte Count 1.51 X10^3/uL (0.83-4.51); Absolute Neutrophil Count 3.4 X10^3/uL (2.0-7.7); Basophil# 0.02 X10^3/uL; Basophil% 0.4 % (0-1); Eosinophil# 0.13 X10^3/uL; Eosinophils% 2.3 % (0-5); Hematocrit 40.4 % (40-54); Hemoglobin 13.4 g/dL (13.0-16.5); Lymphocyte # 1.51 X10^3/ul (0.83-4.51); Lymphocyte % 26.7 % (19-41); Mean Corp Hgb Conc 33.2 g/dL (32-36); Mean Corpuscular Hgb 30.6 pg (27.0-32.0); Mean Corpuscular Volume 92.2 fL (80-94); Mean Platelet Vol. 9.8 fl (6.2-12.0); Monocyte# 0.55 X10^3/uL; Monocyte% 9.7 % (0-10); NRBC Flagged by Analyzer 0 % (0-5); Neutrophil # 3.43 X10^3/uL (2.7-7.7); Neutrophil % 60.5 % (47-70); Platelet Count 165 K/mm3 (150-450); RBC Distribution Width CV 12.3 % (11.6-14.6); RBC Distribution Width SD 41.8 fl (35.1-43.9); Red Blood Count 4.38 M/mm3 (4.6-6.2); White Blood Count 5.7 K/mm3 (4.4-11.0)
[2021-11-05 17:17] LABS: Prothrombin Time (Protime)PT. 13.1 SECONDS (11.7-14.9)
[2021-11-05 17:18] LABS: Partial Thromboplast Time 28.4 Seconds (24.1-36.2)
== END | disposition home or self-care (01) ==
LOC: CVS 15:51
PROVIDERS: PCP Internal Medicine; Referring Provider Internal Medicine; Visit Provider Internal Medicine
DX: M79.601 Pain in right arm (principal); S40.021A Contusion of right upper arm, initial encounter; X58.XXXA Exposure to other specified factors, initial encounter
CPT/HCPCS: 36415; 85025; 85610; 85730; 93971

== ENCOUNTER → 2021-11-28 | Outpatient (CLI) | payer MEDICARE, SELFPAY ==
--- NOTE | 2021-11-28 14:27 | VDLE_ITS ---
Reason For Study: LLE PAIN Procedure LEFT This is a venous duplex using B-mode, color GSV is normal. flow and spectral Doppler. CFV is compressible, spontaneous, phasic, Exam performed in department. competent, and demonstrates normal The exam was diagnostic. augmentation. A preliminary report was called and/or faxed FV is compressible, spontaneous, phasic, to Dr. Dominguez @ 2:55 pm @ [phone]. competent and demonstrates normal augmentation. POP V is compressible, spontaneous, phasic, competent and demonstrates normal augmentation. T/P Trunk is compressible. PTV is compressible. LT PerV is compressible. VL/Venous Duplex US, Unilateral Interpretation Summary Deep veins of the left lower extremity are patent and compressible segmentally. There is no evidence of left lower extremity deep vein thrombosis. Valvular competence appears intac t within the proximal deep venous system on the left . The left great saphenous vein appears patent a nd compressible segmentally. Ordering Physician: Samia Dominguez Referring Physician: Samia Dominguez Performed By: Simran Perales, RDCS, RVT
== END | disposition home or self-care (01) ==
LOC: CVS 14:26
PROVIDERS: PCP Internal Medicine; Referring Provider Internal Medicine; Visit Provider Internal Medicine
DX: M79.605 Pain in left leg (principal)
CPT/HCPCS: 93971

== ENCOUNTER → 2022-01-22 | Outpatient (CLI) | payer MEDICARE, SELFPAY ==
--- NOTE | 2022-01-22 15:34 | VDLE_ITS ---
Reason For Study: pain RIGHT GSV is normal. CFV is compressible, spontaneous, phasic, competent and demonstrates normal augmentation. FV is compressible, spontaneous, phasic, competent and demonstrates normal augmentation. POP V is compressible, spontaneous, phasic, competent and demonstrates normal augmentation. T/P Trunk is compressible. PTV is compressible. RT PerV is compressible. Procedure This is a venous duplex using B-mode, color flow and spectral Doppler. Exam performed in department. The exam was abbreviated due to the COVID 19 protocol. The exam was diagnostic. A preliminary report was called and/or faxed to Dr. Oneill. VL/Venous Duplex US, Unilateral Interpretation Summary Deep veins of the right lower extremity are patent and compressible segmentally . There is no evidence of right lower extremity deep vein thrombosis. The right great sapheno us vein appears patent and compressible segmentally. Ordering Physician: Tru Oneill Performed By: Aleksander Hunter RVT
== END | disposition home or self-care (01) ==
LOC: CVS 15:30
PROVIDERS: PCP Internal Medicine; Visit Provider Orthopaedic Surgery
DX: M79.661 Pain in right lower leg (principal); R22.41 Localized swelling, mass and lump, right lower limb
CPT/HCPCS: 93971

== ENCOUNTER → 2022-02-05 | Outpatient (CLI) | payer MEDICARE, SELFPAY ==
--- NOTE | 2022-02-05 12:42 | CDU_ITS ---
Reason For Study: CAROTID STENOSIS Rt. Velocities/BP Lt. Velocities/BP Prox CCA 104.7/13.3 cm/sec. Prox CCA 83.8/14.4 cm/sec. Mid CCA 70.5/13.9 cm/sec. Mid CCA 91.1/8.9 cm/sec. Dist CCA 72.3/10.2 cm/sec. Dist CCA 82.0/14.4 cm/sec. Prox ICA 66.3/9.7 cm/sec. Prox ICA 72.1/12.7 cm/sec. Mid ICA 130.2/27.9 cm/sec. Mid ICA 101.6/19.4 cm/sec. Dist ICA 137.5/27.9 cm/sec. Dist ICA 90.6/19.4 cm/sec. Rt. ICA/CCA = 1.95. Lt. ICA/CCA = 1.12. Prox ECA 107/8.4 cm/sec. Prox ECA 114.9/5.3 cm/sec. Rt. Vert. 38.1/7.4 cm/sec. Lt. Vert. 58.5/13.1 cm/sec. Right Extracranial There is heterogeneous, irregular atherosclerotic plaque noted in the right common carotid artery. There is heterogeneous, irregular atherosclerotic plaque noted in the right internal carotid artery. The tortuous nature of the right internal carotid artery may result in flow velocities overestimating the degree of stenosis. There is heterogeneous, irregular atherosclerotic plaque noted in the right external carotid artery. Antegrade flow is noted in the right vertebral artery. Left Extracranial There is heterogeneous, irregular atherosclerotic plaque noted in the left common carotid artery. There is heterogeneous, irregular atherosclerotic plaque noted in the left internal carotid artery. The tortuous nature of the left internal carotid artery may result in flow velocities overestimating the degree of stenosis. There is intimal thickening but no significant atherosclerotic plaque noted in the left external carotid artery. Antegrade flow is noted in the left vertebral artery. Procedure Carotid Duplex 12003. This is a Carotid Duplex examination using B-mode, color flow and specral Doppler. The exam was diagnostic. Exam performed in department. VL/Carotid Duplex Ultrasound Interpretation Summary Moderate (50-69%) stenosis right extracranial internal carotid. Mild (<50%) stenosis left extracranial internal carotid. Patent and antegrade vertebrals bilaterally. Ordering Physician: Samia Dominguez Referring Physician: Samia Dominguez M.D. Performed By: Nicolás Sprague RVT
== END | disposition home or self-care (01) ==
LOC: CVS 12:42
PROVIDERS: PCP Internal Medicine; Visit Provider Internal Medicine
DX: I65.23 Occlusion and stenosis of bilateral carotid arteries (principal)
CPT/HCPCS: 93880

== ENCOUNTER → 2022-07-10 | Outpatient (CLI) | payer MEDICARE, BC, SELFPAY ==
--- NOTE | 2022-07-10 15:44 | US_ITS ---
STUDY: RENAL ULTRASOUND - COMPLETE REASON FOR EXAM: Male, 87 years old. Gross hematuria TECHNIQUE: Ultrasound evaluation of the kidneys was performed with real-time and static torres-scale imaging. COMPARISON: CT from 03/15/2021 FINDINGS: RIGHT KIDNEY: Normal location of the right kidney, which is normal in size. The right kidney measures 12.1 x 5.6 x 6.3 cm. There is a normal cortex of the right kidney. The renal cortex measures 2.0 cm. There is a simple 5.8 cm cyst there is a nonobstructing 6 mm stone. There is no right hydronephrosis. DISTAL RIGHT URETER: There is non-visualization of the distal right ureter. There is no demonstrated right ureterovesical junction calculus. There is a visualized right ureteral jet. LEFT KIDNEY: Normal location of the left kidney, which is normal in size. The left kidney measures 11.9 x 5.5 x 5.6 cm. There is a normal cortex of the left kidney. The renal cortex measures 1.8 cm. There are 2 simple cysts, larger measures 5.0 cm. There are no left renal calculi. There is no left hydronephrosis. DISTAL LEFT URETER: There is non-visualization of the distal left ureter. There is no demonstrated left ureterovesical junction calculus. There is a visualized left ureteral jet. AORTA: There is no elongation or tortuosity of the abdominal aorta. Aorta measures: Proximal cm. Middle cm. Distal cm. Aorta measure transversely: Proximal cm. Middle cm. Distal cm. There is no demonstrated aneurysm.. I.V.C.: The IVC is patent. BLADDER: The distended urinary bladder has a volume of 153.15 ml. The empty urinary bladder has a volume of 43.76 ml. There is a normal wall thickness of the distended urinary bladder. There is no demonstrated mass within the urinary bladder. There are no demonstrated bladder calculi. US/Kidney and Bladder IMPRESSION: Bilateral simple renal cysts, no specific follow-up needed. Nonobstructing right nephrolithiasis No obstructive uropathy or suspicious solid renal lesion Abnormal post void residual places the patient at risk for urinary reflux and UTIs Electronically Signed: James Mack MD at 8:20 EDT ,
== END | disposition home or self-care (01) ==
LOC: US 15:44
PROVIDERS: PCP Internal Medicine; Referring Provider Internal Medicine; Visit Provider Internal Medicine
DX: R31.0 Gross hematuria (principal)
CPT/HCPCS: 76770

== ENCOUNTER → 2022-12-31 | Outpatient (CLI) | payer MEDICARE, BC, SELFPAY ==
--- NOTE | 2022-12-31 15:03 | VDLE_ITS ---
Reason For Study: Right leg pain/swelling RIGHT LEFT GSV is normal. CFV is compressible, spontaneous, phasic, CFV is compressible, spontaneous, phasic, competent, and demonstrates normal competent and demonstrates normal augmentation. augmentation. FV is compressible, spontaneous, phasic, competent and demonstrates normal augmentation. POP V is compressible, spontaneous, phasic, competent and demonstrates normal augmentation. T/P Trunk is compressible. PTV is compressible. RT PerV is compressible. Nonvascularized structure noted in the calf between muscle fascia. Procedure This is a venous duplex using B-mode, color flow and spectral Doppler. Exam performed in department. A preliminary report was called and/or faxed to Dr. Dominguez. VL/Venous Duplex US, Unilateral Interpretation Summary There is no evidence of right lower extremity deep vein thrombosis. Right great saphenous vein appears patent and compressible segmentally. Normal flow patterns left common f emoral vein Ordering Physician: Samia Dominguez Referring Physician: Samia Dominguez Performed By: Mel Mckeon RVT
== END | disposition home or self-care (01) ==
LOC: CVS 15:02
PROVIDERS: PCP Internal Medicine; Referring Provider Internal Medicine; Visit Provider Internal Medicine
DX: M79.661 Pain in right lower leg (principal)
CPT/HCPCS: 93971

== ENCOUNTER → 2023-03-14 | Outpatient (CLI) | payer MEDICARE, BC, SELFPAY ==
--- NOTE | 2023-03-14 14:49 | VDLE_ITS ---
Reason For Study: Left Leg Pain RIGHT LEFT CFV is compressible, spontaneous, phasic, GSV is normal. competent and demonstrates normal CFV is compressible, spontaneous, phasic, augmentation. competent, and demonstrates normal Procedure augmentation. This is a venous duplex using B-mode, color FV is compressible, spontaneous, phasic, flow and spectral Doppler. competent and demonstrates normal Exam performed in department. augmentation. A preliminary report was called and/or faxed POP V is compressible, spontaneous, phasic, to Dr. Dominguez. competent and demonstrates normal augmentation. T/P Trunk is compressible. PTV is compressible. LT PerV is compressible. VL/Venous Duplex US, Unilateral Interpretation Summary Deep veins of the left lower extremity are patent and compressible segmentally. There is no evidence of left lower extremity deep vein thrombosis. Valvular competence appears intac t within the proximal deep venous system on the left . The left great saphenous vein appears patent a nd compressible segmentally. The right common femoral vein is patent and compressible . Ordering Physician: Samia Dominguez Referring Physician: Samia Dominguez Performed By: Edyta Aden, RDCS, RVT
== END | disposition home or self-care (01) ==
LOC: CVS 14:48
PROVIDERS: PCP Internal Medicine; Referring Provider Internal Medicine; Visit Provider Internal Medicine
DX: M79.605 Pain in left leg (principal)
CPT/HCPCS: 93971

== ENCOUNTER 2024-02-01 02:29 | Inpatient (IN) | payer MEDICARE, BC, SELFPAY ==
[2024-02-01] VITALS (14 sets, daily range): BP systolic 127–163; BP diastolic 55–112; PULSE 76–101; RESP 16–19; TEMP 36.7–37.3; O2SAT 92–97; BMI 31.4
--- NOTE | 2024-02-01 02:39 | CT_ITS ---
STUDY: CTA CHEST REASON FOR EXAM: Male, 88 years old patient with dyspnea. RADIATION DOSAGE (If Supplied By Facility): CTDIvol = ( 23.68 ) mGy, DLP = ( 514.65 ) mGycm TECHNIQUE: The examination was performed with the intravenous administration of 100 mL of Isovue-370. Post-processing of the angiographic images was performed, with multiplanar reformation and 3D reconstruction. Individualized dose optimization techniques were used for this CT. COMPARISON: Prior comparable comparison studies are not available for review at this time. FINDINGS: Cardiac monitoring leads are present. Normal enhancement of the main pulmonary artery and right and left pulmonary arteries. Normal enhancement of the bilateral peripheral pulmonary arteries. There are small subsegmental pulmonary emboli to the right upper lobe. There is atherosclerotic calcification of the aortic arch with tortuosity. There is no demonstrated aortic dissection. Normal heart with small pericardial effusion versus pericardial thickening. There are calcifications of the coronary arteries. Normal mediastinum. Normal hilar regions. Normal visualized trachea and bronchi. The lungs are well expanded. There is bilateral basilar dependent atelectasis and possible pleural thickening. No definite pleural effusions are visualized. Normal chest wall structures. There are degenerative changes of thoracic spine. There is a small hiatal hernia. There is a left-sided renal cyst measuring up to 5.4 cm in greatest dimension. CT/CTA Chest W/WO Contrast IMPRESSION: 1. Small subsegmental pulmonary emboli to right upper lobe. No right heart strain. 2. No CTA demonstrated arterial dissection. 3. Bilateral basilar dependent atelectasis. N.B. : The above Results were Read Back by Lauren Oneill MD to Wade Pozo DO, and understanding confirmed on 02/01/2024 04:00:31 (ET). Electronically Signed: Lauren Oneill MD at 4:06 EDT ,
--- NOTE | 2024-02-01 02:39 | EKG12_ITS ---
Test Reason : DYSRHYTHMIA Blood Pressure : / mmHG Vent. Rate : 082 BPM Atrial Rate : 082 BPM P-R Int : 162 ms QRS Dur : 084 ms QT Int : 352 ms P-R-T Axes : 033 -20 -08 degrees QTc Int : 411 ms Normal sinus rhythm Minimal voltage criteria for LVH, may be normal variant ( R in aVL ) Borderline ECG Confirmed by KENDY HARRY, ESTEFANI ([id number]), market editor EDWIN CALLOWAY ([id number]) on 02/02/2024 5:52:56 AM Referred By: Confirmed By:YASIR LARRY MD
--- NOTE | 2024-02-01 02:40 | ED.VIS.DYS ---
HPI History of Present Illness Chief Complaint: Shortness of Breath Informant: patient, spouse/S.O. and EMS Narrative Narrative: 5 days postop elective right total knee arthroplasty follow-up with Dr. Fisher. Ambulate with a walker. Therapy started 2 days ago. he states return from the restroom this evening and laid down and got short of breath. There is been right leg swelling since his surgery. He is on baby aspirin twice daily since surgery. He states this morning woke up with a cough nonproductive with chills and a temp 100 today. No urinary symptoms. No vomiting diarrhea. [facility] Medical History SASHA treated with BiPAP Vertigo Atherosclerosis of coronary artery of [place] heart without angina pectoris NSVT (nonsustained ventricular tachycardia) Former tobacco use Obesity Anxiety and depression Bilateral carotid artery stenosis Essential (primary) hypertension C. difficile colitis Nonrheumatic mitral valve prolapse Hyperlipidemia BPH (benign prostatic hyperplasia) Home Medications ?Medication ?Instructions ?Recorded ?Last Taken ?Type omeprazole 20 mg capsule,delayed 20 mg PO DAILY gerd 01/31/13 11/08/19 History release L.acidoph, paracasei,B. lactis 10 1 ea PO DAILY supplement 09/14/18 01/06/19 History billion cell capsule cholecalciferol (vitamin D3) 25 1,000 unit PO DAILY supplement 09/14/18 01/06/19 History mcg (1,000 unit) tablet lutein 6 mg capsule 6 mg PO DAILY supplement 09/14/18 01/06/19 History aspirin 81 mg tablet,delayed 81 mg PO BID 10/30/18 02/19/19 History release (Adult Aspirin Regimen) amlodipine 2.5 mg tablet 5 mg PO BID 01/06/19 11/08/19 History pravastatin 20 mg tablet 20 mg PO DAILY 01/06/19 01/06/19 History metoprolol succinate 25 mg 12.5 mg PO DAILY 02/01/24 Unknown History tablet,extended release 24 hr oxycodone 5 mg tablet 10 mg PO Q6H PRN pain 02/01/24 Unknown History primidone 50 mg tablet 100 mg PO .COMPLEX 02/01/24 Unknown History rosuvastatin 5 mg tablet mg 02/01/24 Unknown History sertraline 100 mg tablet 100 mg PO Q24H 02/01/24 Unknown History Allergy/AdvReac Type Severity Reaction Status Date / Time clindamycin Allergy Rash Verified 11/06/21 12:43 Penicillins Allergy Swelling Verified 11/06/21 12:43 acetaminophen (From Vicodin) AdvReac NERVOUS, Verified 03/29/22 14:31 AGITATED gabapentin AdvReac hiccups Verified 11/06/21 12:43 hydrocodone (From Vicodin) AdvReac NERVOUS, Verified 03/29/22 14:31 AGITATED hydrocodone bitartrate (From AdvReac Other Verified 11/06/21 12:43 Vicodin) ketoconazole AdvReac Nausea Verified 11/06/21 12:43 levofloxacin (From Levaquin) AdvReac severe Verified 11/06/21 12:43 headache prednisone AdvReac panic Verified 11/06/21 12:43 attack Family History Father CVA (cerebral vascular accident) Mother CAD (coronary artery disease) Diabetes Hypertension Brother Colon cancer Brother Hypertension Sister Myocardial infarction Son Myocardial infarction Surgical History History of loop recorder (11/08/19) History of left heart catheterization (01/19/19) History of left shoulder replacement (08/2018) H/O colonoscopy Hx of hernia repair H/O vasectomy Hx of cholecystectomy Hx of appendectomy Social History (Updated 02/01/24 @ 05:38 by Mariam Aceves) household members: spouse [facility] Smoking Status: Former smoker alcohol intake: never substance use type: does not use ROS ROS ED Constitutional Constitutional ED: Reports chills; Denies fever(s) or sweats Eyes Eyes: Denies change in vision ENT ENT ED: Denies dysphagia or sore throat Cardiovascular Cardiovascular: Reports leg edema; Denies chest pain, palpitations or racing heartbeat Respiratory/Chest Respiratory/Chest: Reports cough and dyspnea; Denies dyspnea on exertion Gastrointestinal Gastrointestinal: Denies abdominal pain, diarrhea, nausea or vomiting Genitourinary Genitourinary ED: Denies dysuria, hematuria or urinary frequency Musculoskeletal Musculoskeletal: Reports extremity pain and other Details: Postop right knee pain, leg swelling ; Denies back pain or neck pain Integumentary Denies rash or wounds Neurologic Neurologic: Denies headache(s), paresthesias or weakness EXAM Physical Exam Const Vital Signs: 02/01/24 02:30 02/01/24 02:36 02/01/24 03:34 Temperature 98.3 F 99.1 F Temperature Source Oral Oral Pulse Rate 82 85 Respiratory Rate 16 16 Respiratory Effort Normal Respiratory Depth Normal Respiratory Pattern Normal Blood Pressure 153/63 H 153/64 H Blood Pressure Mean 93 93 Pulse Ox 97 96 Oxygen Delivery Method Room Air Room Air Room Air 02/01/24 03:55 Temperature 98.9 F Temperature Source Oral Pulse Rate 84 Respiratory Rate 16 Respiratory Effort Respiratory Depth Respiratory Pattern Blood Pressure 155/60 H Blood Pressure Mean 91 Pulse Ox 96 Oxygen Delivery Method Room Air Positive well nourished and well developed General Appearance ED: well developed and NAD HEENT Reports moist mucous membranes normocephalic and atraumatic Eyes EOMs intact bilaterally and conjunctivae normal General Eye ED: Yes normal appearance of both eyes Neck no lymphadenopathy and supple General: Negative for tenderness Chest Wall Chest: Negative for tenderness Resp normal respiratory effort and normal air movement Effort and Inspection: symmetric chest movement; Negative for respiratory distress Cardio regular rate, regular rhythm and no murmurs Peripheral Pulses: pulses 2+ throughout GI normal to inspection, nondistended, normoactive bowel sounds and non-tender Palpation: Negative for guarding or rebound tenderness present Back/Spine no CVA tenderness and no thoracic nor lumbar tenderness Extremity Extremity Narrative: Right lower extremity asymmetric swelling there is dressing midline knee clean, dry, intact. No calf or medial thigh tenderness. Pulses are intact distally. General Extremety ED: Yes edema; Negative for tenderness General Extremity: edema Neuro oriented x3 and no sensory deficits noted Sensorium / Orientation: awake and alert Skin no rashes or lesions noted and no wounds MDM MDM MDM Narrative Medical decision making narrative: Interventions / MDM: Differential diagnosis: Pulmonary embolus, hypoxia Diagnosis considered but do not suspect: Pneumonia however image study negative. My EKG interpretation: Sinus rate of 82, no ST changes. T wave inversion leads III and aVF, similar findings from EKG back in 2019. Imaging independently reviewed and interpreted by myself: CTA chest: Right upper lobe subsegmental pulmonary embolism also discussion with radiology. External documents reviewed: N/A Test considered but not ordered:N/A ED course: Cough chills today with increasing dyspnea. However postop right knee 5 days with increasing dyspnea. Discussed viral syndrome however risk for DVT and PE. Pulse ox 97% room air. Will check labs, EKG, COVID, flu, RSV sent. Moderate risk criteria for PE, CTA chest ordered for further evaluation. 0420: CT positive for right upper lobe subsegmental PE. Labs hemoglobin 10.3 postop. Creatinine 0.86. Patient ordered for Eliquis, ambulated with a pulse ox dropped down to 86% on and was dyspneic. At rest pulse ox stable. With hypoxia will discuss with hospitalist for admission. 0435: I spoke with Dr. Parra for admission to PCU. 0438: COVID, influenza, RSV returned negative. Re-evaluation: stable Disposition discussed with patient/family/significant other: Patient and family Case discussed with consulting clinician: Hospitalist This note was generated with [employer] dictation software. It may contain incorrect words, spelling, and punctuation that were not noted in checking the note before signing. Lab Data Attestation: I reviewed the patient's lab results. Labs: Laboratory Results - last 24 hr 02/01/24 02:45 WBC 7.0 RBC 3.48 L Hgb 10.3 L Hct 31.9 L MCV 91.7 MCH 29.6 MCHC 32.3 RDW Std Deviation 42.8 RDW Coeff of [place] 12.8 Plt Count 199 MPV 9.7 Immature Gran % (Auto) 0.400 Neut % (Auto) 65.1 Lymph % (Auto) 17.0 L [place] % (Auto) 12.8 H Eos % (Auto) 4.3 Baso % (Auto) 0.4 Absolute Neuts (auto) 4.6 Absolute Lymphs (auto) 1.19 Nucleated RBC % 0 Sodium 135 L Potassium 3.8 Chloride 101 Carbon Dioxide 31.0 Anion Gap 4 L BUN 22 H Creatinine 0.86 Estim Creat Clear Calc 65.91 Est GFR (MDRD) Af Amer 108 Est GFR (MDRD) Non-Af 89 BUN/Creatinine Ratio 25.6 H Glucose 117 H Calcium 9.0 Troponin I High Sens 6 B-Natriuretic Peptide 25.0 Radiography Diagnostic Testing: Clinical Impression(s) from Imaging Studies Chest CTA 02/01/24 02:39 IMPRESSION: 1. Small subsegmental pulmonary emboli to right upper lobe. No right heart strain. 2. No CTA demonstrated arterial dissection. 3. Bilateral basilar dependent atelectasis. N.B. : The above Results were Read Back by Lauren Oneill MD to Wade Pozo DO, and understanding confirmed on 02/01/2024 04:00:31 (ET). Electronically Signed: Lauren Oneill MD at 4:06 EDT , Discharge Plan Dx/Rx/DC Orders Clinical Impression: Pulmonary embolism on right, Hypoxia, Dyspnea, Cough, Anemia Disposition Disposition: Acute Care Hospital [facility] Discharge Date/Time: 02/01/24 05:08
[2024-02-01 02:57] LABS: Absolute Lymphocyte Count 1.19 X10^3/uL (0.83-4.51); Absolute Neutrophil Count 4.6 X10^3/uL (2.0-7.7); Basophil# 0.03 X10^3/uL; Basophil% 0.4 % (0-1); Eosinophils% 4.3 % (0-5); Hematocrit 31.9 % (40-54); Hemoglobin 10.3 g/dL (13.0-16.5); Lymphocyte # 1.19 X10^3/ul (0.83-4.51); Mean Corp Hgb Conc 32.3 g/dL (32-36); Mean Corpuscular Hgb 29.6 pg (27.0-32.0); Mean Corpuscular Volume 91.7 fL (80-94); Mean Platelet Vol. 9.7 fl (6.2-12.0); Monocyte% 12.8 % (0-10); NRBC Flagged by Analyzer 0 % (0-5); Neutrophil # 4.56 X10^3/uL (2.7-7.7); Neutrophil % 65.1 % (47-70); Platelet Count 199 K/mm3 (150-450); RBC Distribution Width CV 12.8 % (11.6-14.6); RBC Distribution Width SD 42.8 fl (35.1-43.9); Red Blood Count 3.48 M/mm3 (4.6-6.2)
[2024-02-01 03:12] LABS: Anion Gap 4 (5-15); BUN 22 mg/dL (7-18); BUN/Creat Ratio 25.6 RATIO (10-20); Chloride 101 mmol/L (98-107); Creatinine, Serum 0.86 mg/dL (0.70-1.30); EST Glomerular Filtration Rate 89 mL/min (>60); Est Glom Filt Rate - Afr Amer 108 mL/min (>60); Estimated Creatinine Clearance 65.91 ml/min; Glucose 117 mg/dL (74-106); Potassium 3.8 mmol/L (3.5-5.1); Sodium Level 135 mmol/L (136-145)
--- NOTE | 2024-02-01 04:38 | PCM.HP.STD ---
HPI - General General Date of Admission: 02/01/24 Date of Service: 02/01/24 Chief Complaint: Dyspnea. HPI Narrative The patient is an 88 y/o M w/ PMHx: Carotid disease, HTN, HLD, Hx clostridium difficilie colitis, BPH, Hx NSVT, Anxiety and Depression, SASHA on BIPAP, Nonobstructive CAD, Former tobacco use who presents to the [facility] ED on 02/01/2024 with history of being postoperative 5 days status post elective right total knee replacement with Dr. Fisher ambulating with a walker starting therapy 2 days prior approximately with history of returning from the restroom this evening and laying down following which he got short of breath with increased right swelling since his surgery on twice daily baby aspirin with onset of a mild dry cough and a temperature of 100 prompting ED evaluation to be cautious. He notes his chest feels heavy with a slight pressure sensation that is constant. He denies severe pain to the right lower extremity and reports that he is post to take the dressings off today. Workup in the ED included T98.3, heart rate 82, BP 153/63, respiratory rate 16, 97% room air with decrease to 86% on RA with ambulation attempts, CBC with WBC 7, hemoglobin 10.3, MCV 91.7, platelet 199 without marked shift, BMP with sodium 135, BUN/creatinine 22/0.86, glucose 117, pending rapid SARS COVID/influenza/RSV PCR, CTPA with small subsegmental pulmonary emboli to the right upper lobe with no evidence of any strain, bibasilar bilateral dependent atelectasis, EKG with SR with nospecific ST-T changes similar to prior with no acute evidence of ischemia. In the ED patient administered Eliquis 10 mg p.o. x 1. [facility] Medical History SASHA treated with BiPAP Vertigo Atherosclerosis of coronary artery of [place] heart without angina pectoris NSVT (nonsustained ventricular tachycardia) Former tobacco use Obesity Anxiety and depression Bilateral carotid artery stenosis Essential (primary) hypertension C. difficile colitis Nonrheumatic mitral valve prolapse Hyperlipidemia BPH (benign prostatic hyperplasia) Home Medications ?Medication ?Instructions ?Recorded ?Last Taken ?Type omeprazole 20 mg capsule,delayed 20 mg PO DAILY gerd 01/31/13 11/08/19 History release L.acidoph, paracasei,B. lactis 10 1 ea PO DAILY supplement 09/14/18 01/06/19 History billion cell capsule cholecalciferol (vitamin D3) 25 1,000 unit PO DAILY supplement 09/14/18 01/06/19 History mcg (1,000 unit) tablet lutein 6 mg capsule 6 mg PO DAILY supplement 09/14/18 01/06/19 History aspirin 81 mg tablet,delayed 81 mg PO BID 10/30/18 02/19/19 History release (Adult Aspirin Regimen) amlodipine 2.5 mg tablet 5 mg PO BID 01/06/19 11/08/19 History pravastatin 20 mg tablet 20 mg PO DAILY 01/06/19 01/06/19 History metoprolol succinate 25 mg 12.5 mg PO DAILY 02/01/24 Unknown History tablet,extended release 24 hr oxycodone 5 mg tablet 10 mg PO Q6H PRN pain 02/01/24 Unknown History primidone 50 mg tablet 100 mg PO .COMPLEX 02/01/24 Unknown History rosuvastatin 5 mg tablet mg 02/01/24 Unknown History sertraline 100 mg tablet 100 mg PO Q24H 02/01/24 Unknown History Allergy/AdvReac Type Severity Reaction Status Date / Time clindamycin Allergy Rash Verified 11/06/21 12:43 Penicillins Allergy Swelling Verified 11/06/21 12:43 acetaminophen (From Vicodin) AdvReac NERVOUS, Verified 03/29/22 14:31 AGITATED gabapentin AdvReac hiccups Verified 11/06/21 12:43 hydrocodone (From Vicodin) AdvReac NERVOUS, Verified 03/29/22 14:31 AGITATED hydrocodone bitartrate (From AdvReac Other Verified 11/06/21 12:43 Vicodin) ketoconazole AdvReac Nausea Verified 11/06/21 12:43 levofloxacin (From Levaquin) AdvReac severe Verified 11/06/21 12:43 headache prednisone AdvReac panic Verified 11/06/21 12:43 attack Family History Father CVA (cerebral vascular accident) Mother CAD (coronary artery disease) Diabetes Hypertension Brother Colon cancer Brother Hypertension Sister Myocardial infarction Son Myocardial infarction Surgical History History of loop recorder (11/08/19) History of left heart catheterization (01/19/19) History of left shoulder replacement (08/2018) H/O colonoscopy Hx of hernia repair H/O vasectomy Hx of cholecystectomy Hx of appendectomy Social History household members: spouse Smoking Status: Former smoker alcohol intake: never substance use type: does not use ROS ROS Narrative Admission Review of Systems: CONSTITUTIONAL: No weight loss, fever, chills, + weakness or fatigue. HEENT: Eyes: No visual loss, blurred vision, double vision or yellow sclerae. Ears, Nose, Throat: No hearing loss, sneezing, congestion, runny nose or sore throat. SKIN: No rash or itching, lesions, wounds. CARDIOVASCULAR: + Chest pressure, right lower extremity edema. No palpitations, edema, orthopnea, syncopal events. RESPIRATORY: + Dyspnea with dry cough. No productive sputum, wheezing, hemoptysis. GASTROINTESTINAL: No anorexia, nausea, vomiting or diarrhea, abdominal pain, melena, BRBPR. GENITOURINARY: No dysuria, frequency, urgency or retention. NEUROLOGICAL: No headache, dizziness, syncope, paralysis, ataxia, numbness or tingling in the extremities, focal weakness, change in bowel or bladder control, seizure. MUSCULOSKELETAL: + muscle, back pain, joint pain or stiffness. HEMATOLOGIC: + Chronic anemia. No bleeding or bruising. LYMPHATICS: No enlarged nodes. No history of splenectomy. PSYCHIATRIC: + History of anxiety and depression. ENDOCRINOLOGIC: No reports of sweating, cold or heat intolerance. No polyuria or polydipsia. ALLERGIES: No history of asthma, hives, eczema or rhinitis. Vital Signs Vital Signs Vital Signs: 02/01/24 02:30 02/01/24 02:36 02/01/24 03:34 Temperature 98.3 F 99.1 F Temperature Source Oral Oral Pulse Rate 82 85 Respiratory Rate 16 16 Respiratory Effort Normal Respiratory Depth Normal Respiratory Pattern Normal Blood Pressure 153/63 H 153/64 H Blood Pressure Mean 93 93 Pulse Ox 97 96 Oxygen Delivery Method Room Air Room Air Room Air 02/01/24 03:55 Temperature 98.9 F Temperature Source Oral Pulse Rate 84 Respiratory Rate 16 Respiratory Effort Respiratory Depth Respiratory Pattern Blood Pressure 155/60 H Blood Pressure Mean 91 Pulse Ox 96 Oxygen Delivery Method Room Air Weight Weight: 206 lb 5.643 oz Body Mass Index (BMI) 31.4 Physical Exam Narrative Physical Examination: General: Awake, alert, oriented x 3 and cooperative, seated upright in the ED bed, fatigued otherwise no acute distress. Skin: Normal color, normal turgor, no icterus, no cyanosis except occasional stage ecchymoses, abrasion some likely from recent lab draws from hospitalization, right lower extremity with dressings removed with incisions clean, dry and intact with juana in place, evident right lower extremity swelling ankle to proximal to the knee. HEENT: AT/NC, EOMI, PERRLA, MMM, no carotid bruits or JVD noted. Lungs: Diminished, greater bases, proper effort, no evidence of any distress no rales, ronchi or wheezing. Heart: Regular rate and rhythm; no gallop, rub audible. Abdomen: Soft, obese, NTTP, ND, distant normal BS, no appreciated HSM. Extremities: No cyanosis, no clubbing, see skin, notable pedal to proximal to the knee 2+ pitting edema. Neurological: Patient awake, alert, oriented as noted, cognitive function intact; pupils equally reactive to light and accommodation, cranial nerves grossly normal, moving all 4 extremities, no focal deficits, strength moderately globally decreased secondary to acute presentation and recent OR. Psychiatric: Affect appears fatigued otherwise normal, no acute evidence of depressive or anxiety feelings but does have underlying history. Results Lab / Micro Data 02/01/24 02:45 02/01/24 02:45 Labs: Laboratory Results - last 24 hr 02/01/24 02:45: WBC 7.0, RBC 3.48 L, Hgb 10.3 L, Hct 31.9 L, MCV 91.7, MCH 29.6, MCHC 32.3, RDW Std Deviation 42.8, RDW Coeff of [place] 12.8, Plt Count 199, MPV 9.7, Immature Gran % (Auto) 0.400, Neut % (Auto) 65.1, Lymph % (Auto) 17.0 L, [place] % (Auto) 12.8 H, Eos % (Auto) 4.3, Baso % (Auto) 0.4, Absolute Neuts (auto) 4.6, Absolute Lymphs (auto) 1.19, Nucleated RBC % 0, Sodium 135 L, Potassium 3.8, Chloride 101, Carbon Dioxide 31.0, Anion Gap 4 L, BUN 22 H, Creatinine 0.86, Estim Creat Clear Calc 65.91, Est GFR (MDRD) Af Amer 108, Est GFR (MDRD) Non-Af 89, BUN/Creatinine Ratio 25.6 H, Glucose 117 H, Calcium 9.0 Assessment & Plan Assessment/Plan (1) Pulmonary embolism on right: (2) Hypoxia: PLAN: Plan The patient is an 88 y/o M w/ PMHx: Carotid disease, HTN, HLD, Hx clostidium difficilie colitis, BPH, Hx NSVT, Anxiety and Depression, SASHA on BIPAP, Nonobstructive CAD, Former tobacco use who presents to the [facility] ED on 02/01/2024 with history of being postoperative 5 days status post elective right total knee replacement with Dr. Fisher ambulating with a walker starting therapy 2 days prior approximately with history of returning from the restroom this evening and laying down following which she got short of breath with increased right swelling since his surgery on twice daily baby aspirin with onset of a mild dry cough and a temperature of 100 prompting ED evaluation to be cautious. #1. Acute Hypoxia secondary to Acute RUL Subsegmental Pulmonary Embolism: Will admit to PCU, will continue supplemental oxygen as needed with wean as tolerated to room air, maintain on cardiac telemetry, will obtain trop and BNP but no obvious heart strain on CTPA, will continue therapeutic oral Eliquis regimen which was initiated in the ED with pending AM insurance oral regimen investigation. Given patient hypoxia with ambulatory attempts in the ED patient will need oxygenation trial for discharge to home. Given recent intervention with increased right lower extremity swelling presumed right lower extremity DVT. #2. Recent elective right total knee replacement: Recent right total knee replacement per Dr. Fisher, encourage continued postoperative care per routine, pain regimen as needed, continue therapy assessments. #3. Nonobstructive CAD: Will continue aspirin, statin, metoprolol, not on GUMARO inhibitor/ARB per current list. #4. Hypertension: Continue home regimen including metoprolol, amlodipine, PRN hydralazine. #5. Hyperlipidemia: We will continue patient on statin therapy. #6. Carotid disease: Will continue patient aspirin, statin, hypertensive regimen as noted, encourage continued outpatient follow-up, last noted carotid ultrasound 02/05/22 with noted moderate stenosis of the right extracranial internal carotid with 50 to 69% stenosis, mild less than 50% stenosis left extracranial internal carotid, patent and antegrade vertebrals bilaterally. #7. Anxiety and depression: We will continue patient home escitalopram regimen. #8. GERD: We will continue patient on PPI. #9. BPH: Recurrent list does not appear to be on regimen, if any concerns arise for retention may add agent. #10. Normocytic anemia, appears chronic: Admission hemoglobin 10.3, MCV 91.7, remotely patient has vacillated from -, no recent labs however, will continue to trend CBC to further elucidate chronicity. #11. Former tobacco use: Encourage continued tobacco cessation. #12. SASHA: BiPAP nightly. #13. DVT prophylaxis: Will continue recently initiated Eliquis regimen as noted. #14. CODE status: Patient ROMAIN is his who is present and living will is currently in place. Discussed CODE status at length including difference between FULL code, DNR-CCA and DNR-CC status. Following discussions about the differences in these status, requested DNR-CCA, no intubation status. Charges/Coding Visit Charges Inpatient E&M: 03122 Init Hosp L3
[2024-02-01] MEDS: APIXABAN 5 MG TABLET 10 MG PO ×3 (04:41→21:45)
[2024-02-01 05:12] LABS: Troponin-I HS 6 pg/mL (3.0-78.0)
[2024-02-01] MEDS: oxyCODONE 5 MG Tablet 10 MG PO ×3 (06:01→21:45)
--- NOTE | 2024-02-01 07:31 | PCM.PN.BLA ---
Assessment & Plan Assessment/Plan (1) Pulmonary embolism on right: PLAN: Plan Patient is an 88-year-old gentleman who is 5 days postop following right total knee replacement presented to the emergency department with shortness of breath and profound generalized weakness. CTA obtained did show small subsegmental pulmonary emboli to right upper lobe. Admitted to a monitored bed treatment initiated per protocol GENERAL: cooperative HEENT: Atraumatic; normocephalic EYES; Anicteric, Normal Conjunctiva NECK; supple, normal thyroid, RESPIRATORY: Diminished to auscultation CARDIOVASCULAR: Regular S1 S2, GI: soft, normoactive bowel sounds, : No Renal angle tenderness; EXTREMITIES: No edema, no clubbing, MUSCULOSKELETAL: Right knee surgical incision intact NEURO: Awake; no lateralizing signs. SKIN: No Rash PSYCH; Flat affect Assessment 1. Acute pulmonary embolism ? Provoked by recent surgery 2. GERD 3. Essential hypertension 4. Dyslipidemia 5. Class I obesity with BMI of 31.5 6. Depression with anxiety 7. Obstructive sleep apnea 8. BPH 9. Anemia Patient seen and examined. Initial assessment including history and physical diagnostic data and management orders reviewed will follow
[2024-02-01] MEDS: Sertraline 100 MG Tablet PO (10:44)
[2024-02-01] MEDS: Pantoprazole Sodium 20 MG Tablet PO (10:44)
[2024-02-01] MEDS: Primidone 50 MG Tablet 100 MG PO (10:44)
[2024-02-01] MEDS: Metoprolol(XL)Succ 25 MG Tablet 12.5 MG PO (10:44)
[2024-02-01] MEDS: Lactobacillis Acidophilus 1 CAP PO (10:45)
[2024-02-01] MEDS: Pravastatin 20 MG Tablet PO (10:45)
[2024-02-01] MEDS: amLODIPine 2.5 MG Tablet PO ×2 (10:45→21:45)
--- NOTE | 2024-02-01 19:03 | EKG12_ITS ---
Test Reason : CHEST PRESSURE Blood Pressure : / mmHG Vent. Rate : 093 BPM Atrial Rate : 093 BPM P-R Int : 166 ms QRS Dur : 080 ms QT Int : 336 ms P-R-T Axes : 033 -21 -14 degrees QTc Int : 417 ms Normal sinus rhythm Minimal voltage criteria for LVH, may be normal variant ( R in aVL ) Borderline ECG When compared with ECG of 01-FEB-2024 02:45, MANUAL COMPARISON REQUIRED, DATA IS UNCONFIRMED Confirmed by HILARIA HARRY, MATILDA ([id number]), science editor EDWIN CALLOWAY ([id number]) on 02/06/2024 6:54:27 AM Referred By: OCHOA Confirmed By:MATILDA MANRIQUE MD
[2024-02-01] MEDS: hydrALAZINE 20 MG/ML Vial 10 MG IV (19:10)
[2024-02-01] MEDS: 0.9% Saline Lock 10 ML Syringe IV (19:10)
[2024-02-02 03:17] VITALS: BP 160/63; PULSE 89; RESP 16; TEMP 36.5; O2SAT 96
[2024-02-02] MEDS: oxyCODONE 5 MG Tablet 10 MG PO (03:36)
[2024-02-02 04:06] VITALS: BMI 32.4
[2024-02-02 06:57] LABS: Absolute Lymphocyte Count 1.24 X10^3/uL (0.83-4.51); Absolute Neutrophil Count 3.8 X10^3/uL (2.0-7.7); Basophil# 0.04 X10^3/uL; Basophil% 0.7 % (0-1); Eosinophil# 0.24 X10^3/uL; Eosinophils% 3.9 % (0-5); Hemoglobin 9.4 g/dL (13.0-16.5); Lymphocyte # 1.24 X10^3/ul (0.83-4.51); Lymphocyte % 20.2 % (19-41); Mean Corp Hgb Conc 32.4 g/dL (32-36); Mean Corpuscular Hgb 29.7 pg (27.0-32.0); Mean Corpuscular Volume 91.8 fL (80-94); Mean Platelet Vol. 9.4 fl (6.2-12.0); Monocyte# 0.78 X10^3/uL; Monocyte% 12.7 % (0-10); NRBC Flagged by Analyzer 0 % (0-5); Neutrophil # 3.78 X10^3/uL (2.7-7.7); Neutrophil % 61.4 % (47-70); Platelet Count 210 K/mm3 (150-450); RBC Distribution Width SD 43.8 fl (35.1-43.9); Red Blood Count 3.16 M/mm3 (4.6-6.2); White Blood Count 6.2 K/mm3 (4.4-11.0)
[2024-02-02 09:27] VITALS: BP 132/63; PULSE 77; RESP 18; TEMP 36.3; O2SAT 94
[2024-02-02 09:41] VITALS: PULSE 77
[2024-02-02] MEDS: amLODIPine 2.5 MG Tablet PO (09:41)
[2024-02-02] MEDS: Primidone 50 MG Tablet 100 MG PO (09:41)
[2024-02-02] MEDS: Metoprolol(XL)Succ 25 MG Tablet 12.5 MG PO (09:41)
[2024-02-02] MEDS: Sertraline 100 MG Tablet PO (09:41)
[2024-02-02] MEDS: Lactobacillis Acidophilus 1 CAP PO (09:42)
[2024-02-02] MEDS: Pantoprazole Sodium 20 MG Tablet PO (09:42)
[2024-02-02] MEDS: Pravastatin 20 MG Tablet PO (09:42)
[2024-02-02] MEDS: APIXABAN 5 MG TABLET 10 MG PO (09:42)
[2024-02-02] MEDS: Aspirin E.C. 81 MG Tablet PO (09:46)
[2024-02-02 10:39] LABS: ALB/GLOB Ratio 0.6 RATIO (0.9-2.4); AST(SGOT) 39 U/L (15-37); Alanine Aminotransfer ALT/SGPT 38 U/L (16-61); Albumin, Serum 2.3 g/dL (3.2-5.0); Alkaline Phosphatase 61 U/L (45-117); Anion Gap 7 (5-15); BUN 21 mg/dL (7-18); BUN/Creat Ratio 23.3 RATIO (10-20); Calcium,Total 8.6 mg/dL (8.5-10.1); Chloride 104 mmol/L (98-107); EST Glomerular Filtration Rate 84 mL/min (>60); Est Glom Filt Rate - Afr Amer 102 mL/min (>60); Estimated Creatinine Clearance 61.97 ml/min; Globulin 3.8 g/dL (2.2-4.2); Glucose 100 mg/dL (74-106); Potassium 4.2 mmol/L (3.5-5.1); Protein, Total 6.1 g/dL (6.4-8.2); Sodium Level 136 mmol/L (136-145)
--- NOTE | 2024-02-02 11:05 | CASEMGMT ---
RADHA LEBLANC Face to Face with patient for initial transition planning/care coordination assessment. RN CM introduced self and role at [facility]. Patient lying in bed, alert and oriented. Patient willing to participate in assessment and is able to answer all questions appropriately. Care providers, pharmacy, and demographics verified. Strata: 1 PCP: Alberto Specialists: maciel Fisher Pharmacy: [facility] Insurance: [employer] Prescription Benefit: yes Living Will/HPOA: yes, Brooke LNOK: Living Arrangements: Patient live with in a single story condo with 2 steps and grab bar to enter. Patient is independent at home. Transportation: daughter DME/HHC: Patient has cane, walker, raised toilet, grab bars, shower chair, and bipap at home. No previous SNF. Patient is active with [facility] for PT. Patient wishes to discharge home with resumption of HHC. Patient states he has no further needs or concerns at this time. CM to follow for discharge planning needs that may arise. Disposition Plan: Patient to discharge home with resumption of HHC, family support, and follow-up plans in place. Mel LOZADA, RN, CM
[2024-02-02 11:21] VITALS: O2SAT 94
--- NOTE | 2024-02-02 11:58 | DCINST_ITS ---
Discharge Instructions Diet Discharge Diet: Low fat / Low cholesterol Activity Discharge Activity: Return to Normal Activity Dressing / Incision Call your doctor if you observe: Fever of 101 or Higher, Shortness of breath, Dizziness, Fainting spells, Swelling in the ankles, Chest pain and Increased palpitations (irregular heartbeat) Follow Up Care Test Results: Test results from this visit will be discussed in further detail at your follow- up appointment, if applicable. Discharge Plan Admission Admit Date/Time: 02/01/24 04:45 Attending Provider: Dick Nguyen Primary Care Provider: Samia Dominguez Consulting Providers: Darlyn Parra; Yan Guido Instructions Additional Instructions / Restrictions: Follow-up with your PCP in 3 to 5 days to monitor your hemoglobin given that you were started on anticoagulation for your pulmonary embolism Discharge Orders/Prescriptions Prescriptions: New Eliquis 5 mg Tablet 10 mg PO BID 30 Days Qty: 60 0RF Rx Instructions: Take 2 tablets twice daily for 6 more days then take 1 tablet twice daily Continued omeprazole 20 MG capsule 20 mg PO DAILY Patient Comments: ACID RELUX lutein 6 MG capsule 6 mg PO DAILY cholecalciferol (vitamin D3) 1,000 UNIT tablet 1,000 unit PO DAILY L.acidoph, paracasei,B. lactis 1 EACH capsule 1 ea PO DAILY amlodipine 2.5 MG tablet 5 mg PO BID pravastatin 20 MG tablet 20 mg PO DAILY oxycodone 5 mg tablet 10 mg PO Q6H PRN (Reason: pain) metoprolol succinate 25 mg tablet extended release 24 hr 12.5 mg PO DAILY primidone 50 mg tablet 100 mg PO .COMPLEX Patient Comments: 100mg po qam 50mg po qhs Rx Instructions: 100 mg orally daily; sertraline 100 mg tablet 100 mg PO Q24H rosuvastatin 5 mg tablet Changed aspirin [Adult Aspirin Regimen] 81 mg tablet,delayed release (DR/EC) 81 mg PO DAILY Qty: 1 0RF Referrals / Follow Up: Samia Dominguez MD [Primary Care Provider] - Within 1 Week Disposition Disposition (needs filled in before D/C Order can be placed): Home, Self Care
[2024-02-02 13:44] VITALS: BP 132/54; PULSE 77; RESP 18; TEMP 36.4; O2SAT 97
--- NOTE | 2024-02-02 13:51 | CASEMGMT ---
Patient is discharging on Eliquis. RADHA LEBLANC called Lesley and cost is $31.80. RADHA LEBLANC updated [facility] of discharge. Patient will be seen tomorrow by [facility]. RADHA LEBLANC updated discharge plan. RADHA LEBLANC in to updated patient of Eliquis cost and states this is reasonable for him to afford. Patient had no further questions or concerns.
--- NOTE | 2024-02-02 14:00 | PHA.DC.MC.R ---
Pharmacy [facility] has performed discharge medication reconciliation and counseling for this patient. The patient's discharge medication list was reviewed for discrepancies and discrepancies were resolved. The patient was counseled on the following discharge medications and changes in medications for homegoing were reviewed. The Reason for Use, instructions for use, and potential side effects were reviewed for all new medications. The patient's questions regarding all of their medications were answered. 1. Apixaban 10 mg PO BID x 6 days then 5 mg PO BID thereafter The patient was able to verbally demonstrate an understanding of their discharge medications. Medications at Discharge Home Medications omeprazole 20 mg capsule,delayed release 20 mg PO DAILY gerd 01/31/13 L.acidoph, paracasei,B. lactis 10 billion cell capsule 1 ea PO DAILY supplement 09/14/18 cholecalciferol (vitamin D3) 25 mcg (1,000 unit) tablet 1,000 unit PO DAILY supplement 09/14/18 lutein 6 mg capsule 6 mg PO DAILY supplement 09/14/18 amlodipine 2.5 mg tablet 5 mg PO BID 01/06/19 pravastatin 20 mg tablet 20 mg PO DAILY 01/06/19 metoprolol succinate 25 mg tablet,extended release 24 hr 12.5 mg PO DAILY 02/01/24 oxycodone 5 mg tablet 10 mg PO Q6H PRN pain 02/01/24 primidone 50 mg tablet 100 mg PO .COMPLEX 02/01/24 rosuvastatin 5 mg tablet mg 02/01/24 sertraline 100 mg tablet 100 mg PO Q24H 02/01/24 apixaban 5 mg tablet (Eliquis) 10 mg (2 x 5 mg) PO BID 30 days #60 tabs 02/02/24 aspirin 81 mg tablet,delayed release (Adult Aspirin Regimen) 81 mg PO DAILY #1 TAB 02/02/24
--- NOTE | 2024-02-02 16:44 | PCM.DC.SUM ---
Providers Date of Admission: 02/01/24 Primary Care Physician: Dr. Samia Dominguez MD Reason For Visit: HYPOXI, ACUTE R SIDED PE Diagnosis Discharge Diagnosis (1) Pulmonary embolism on right: Status: Acute Code(s): I26.99 - Other pulmonary embolism without acute cor pulmonale Medications at Discharge Home Medications omeprazole 20 mg capsule,delayed release 20 mg PO DAILY gerd 01/31/13 L.acidoph, paracasei,B. lactis 10 billion cell capsule 1 ea PO DAILY supplement 09/14/18 cholecalciferol (vitamin D3) 25 mcg (1,000 unit) tablet 1,000 unit PO DAILY supplement 09/14/18 lutein 6 mg capsule 6 mg PO DAILY supplement 09/14/18 amlodipine 2.5 mg tablet 5 mg PO BID 01/06/19 pravastatin 20 mg tablet 20 mg PO DAILY 01/06/19 metoprolol succinate 25 mg tablet,extended release 24 hr 12.5 mg PO DAILY 02/01/24 oxycodone 5 mg tablet 10 mg PO Q6H PRN pain 02/01/24 primidone 50 mg tablet 100 mg PO .COMPLEX 02/01/24 rosuvastatin 5 mg tablet mg 02/01/24 sertraline 100 mg tablet 100 mg PO Q24H 02/01/24 apixaban 5 mg tablet (Eliquis) 10 mg (2 x 5 mg) PO BID 30 days #60 tabs 02/02/24 aspirin 81 mg tablet,delayed release (Adult Aspirin Regimen) 81 mg PO DAILY #1 TAB 02/02/24 Hospital Course Operations None Procedures None Summary of Care Provided Minutes Spent on Discharge: 32 Hospital Course: Per HPI: The patient is an 88 y/o M w/ PMHx: Carotid disease, HTN, HLD, Hx clostridium difficilie colitis, BPH, Hx NSVT, Anxiety and Depression, SASHA on BIPAP, Nonobstructive CAD, Former tobacco use who presents to the [facility] ED on 02/01/2024 with history of being postoperative 5 days status post elective right total knee replacement with Dr. Fisher ambulating with a walker starting therapy 2 days prior approximately with history of returning from the restroom this evening and laying down following which he got short of breath with increased right swelling since his surgery on twice daily baby aspirin with onset of a mild dry cough and a temperature of 100 prompting ED evaluation to be cautious. He notes his chest feels heavy with a slight pressure sensation that is constant. He denies severe pain to the right lower extremity and reports that he is post to take the dressings off today. Workup in the ED included T98.3, heart rate 82, BP 153/63, respiratory rate 16, 97% room air with decrease to 86% on RA with ambulation attempts, CBC with WBC 7, hemoglobin 10.3, MCV 91.7, platelet 199 without marked shift, BMP with sodium 135, BUN/creatinine 22/0.86, glucose 117, pending rapid SARS COVID/influenza/RSV PCR, CTPA with small subsegmental pulmonary emboli to the right upper lobe with no evidence of any strain, bibasilar bilateral dependent atelectasis, EKG with SR with nospecific ST-T changes similar to prior with no acute evidence of ischemia. In the ED patient administered Eliquis 10 mg p.o. x 1. Hospital Course: 1. Acute hypoxia secondary to an acute right upper lobe subsegmental pulmonary embolism?88-year-old male who just underwent right knee surgery last week presents to the hospital with increasing shortness of breath and chest pressure. He was found to have a right upper lobe subsegmental PE. He was started on Eliquis and the chest pressure has already resolved. He did not require any oxygen with ambulation and denies any chest pain. Troponins on admission were unremarkable indicating a lack of right heart strain. I discussed with him the plan for discharge today and he expressed understanding of the risk benefits of going home and would like to go home today. He will need to be on Eliquis 10 mg p.o. twice daily for 7 days followed by 5 mg p.o. twice daily. He will need to follow-up with his PCP in 3 to 5 days on discharge. 2. Recent right total knee replacement, coronary artery disease, essential hypertension, hyperlipidemia, carotid disease, anxiety, depression, GERD, BPH are all chronic medical conditions which complicate his care. His home medications were continued where appropriate Physical Exam Narrative General: Alert, Oriented x3, Cooperative, No apparent distress HEENT: Atraumatic, PERRLA, EOMI, Normocephalic Oral: Moist Mucosa Neck: Supple, No JVD Lungs: Clear to auscultation, Normal air movement, No rhonchi, No wheeze, No rales Cardiovascular: Regular rate, Regular Rhythm, Normal S1, Normal S2, No murmurs Abdomen: Soft, Non Tender, Non-Distended, No Hepato-splenomegaly Extremities: No edema, Capillary Refill Less than 3 Seconds Skin: No rashes, No breakdown, incision on right knee CDI Musculoskeletal: No Tenderness to Palpation of Joints or Extremities Neurological: No focal neurological deficits, Motor Exam 5/5 strength throughout, Sensory exam intact to light touch and pain Psych/Mental Status: Normal Affect, Appropriate Weight / BMI Weight Weight: 207 lb 0.225 oz Body Mass Index (BMI) 32.4 ABG / Lab / Microbiology Data 02/02/24 06:14 02/02/24 06:14 Laboratory: Laboratory Results - last 24 hr 02/02/24 06:14: WBC 6.2, RBC 3.16 L, Hgb 9.4 L, Hct 29.0 L, MCV 91.8, MCH 29.7, MCHC 32.4, RDW Std Deviation 43.8, RDW Coeff of [place] 13.0, Plt Count 210, MPV 9.4, Immature Gran % (Auto) 1.100 H, Neut % (Auto) 61.4, Lymph % (Auto) 20.2, [place] % (Auto) 12.7 H, Eos % (Auto) 3.9, Baso % (Auto) 0.7, Absolute Neuts (auto) 3.8, Absolute Lymphs (auto) 1.24, Nucleated RBC % 0, Sodium 136, Potassium 4.2, Chloride 104, Carbon Dioxide 25.0, Anion Gap 7, BUN 21 H, Creatinine 0.90, Estim Creat Clear Calc 61.97, Est GFR (MDRD) Af Amer 102, Est GFR (MDRD) Non-Af 84, BUN/Creatinine Ratio 23.3 H, Glucose 100, Calcium 8.6, Total Bilirubin 0.80, AST 39 H, ALT 38, Alkaline Phosphatase 61, Total Protein 6.1 L, Albumin 2.3 L, Globulin 3.8, Albumin/Globulin Ratio 0.6 L Microbiology: Microbiology 02/01/24 02:45 Mucosa - Nose SARS-CoV-2, Influenza & RSV (PCR) - Final D/C Instructions Discharge Diet: Low fat / Low cholesterol Call your doctor if you observe: Fever of 101 or Higher, Shortness of breath, Dizziness, Fainting spells, Swelling in the ankles, Chest pain and Increased palpitations (irregular heartbeat) Meaningful Use Info Meaningful Use Meaningful Use Diagnoses (Choose all that apply): None applicable Ischemic Stroke Statin Dosing Therapy Reference: STATIN DOSE THERAPY REFERENCE: * Patients > 75 years receive moderate or high dose statin therapy. * Patients 75 years or YOUNGER should receive HIGH intensity statin dose unless contraindicated. You will be required to document reason for non-treatment if statin daily dose does not meet guidelines. HIGH DOSE STATIN THERAPY DAILY Atorvastatin > than or = to 40 mg Rosuvastatin > than or = to 20 mg Amlodipine + Atorvastatin > than or = to 2.5/40 mg Ezetimibe + Simvastatin 10/80 mg Simvastatin 80mg Discharge Plan Admission Admit Date/Time: 02/01/24 04:45 Attending Provider: Dick Nguyen Primary Care Provider: Samia Dominguez Consulting Providers: Darlyn Parra; Yan Guido Instructions Additional Instructions / Restrictions: Follow-up with your PCP in 3 to 5 days to monitor your hemoglobin given that you were started on anticoagulation for your pulmonary embolism Discharge Orders/Prescriptions Prescriptions: New Eliquis 5 mg Tablet 10 mg PO BID 30 Days Qty: 60 0RF Rx Instructions: Take 2 tablets twice daily for 6 more days then take 1 tablet twice daily Continued omeprazole 20 MG capsule 20 mg PO DAILY Patient Comments: ACID RELUX lutein 6 MG capsule 6 mg PO DAILY cholecalciferol (vitamin D3) 1,000 UNIT tablet 1,000 unit PO DAILY L.acidoph, paracasei,B. lactis 1 EACH capsule 1 ea PO DAILY amlodipine 2.5 MG tablet 5 mg PO BID pravastatin 20 MG tablet 20 mg PO DAILY oxycodone 5 mg tablet 10 mg PO Q6H PRN (Reason: pain) metoprolol succinate 25 mg tablet extended release 24 hr 12.5 mg PO DAILY primidone 50 mg tablet 100 mg PO .COMPLEX Patient Comments: 100mg po qam 50mg po qhs Rx Instructions: 100 mg orally daily; sertraline 100 mg tablet 100 mg PO Q24H rosuvastatin 5 mg tablet Changed aspirin [Adult Aspirin Regimen] 81 mg tablet,delayed release (DR/EC) 81 mg PO DAILY Qty: 1 0RF Referrals / Follow Up: Samia Dominguez MD [Primary Care Provider] - Within 1 Week Disposition Disposition (needs filled in before D/C Order can be placed): Home, Self Care Charges/Coding Visit Charges Inpatient E&M: 08254 Disch Hosp >30min
== END 2024-02-02 15:06 | disposition home health service (06) | DRG 300 ==
LOC: ED 04:37 → PCU 04:55
PROVIDERS: Admitting Provider Family Medicine; Emergency Provider Emergency Medicine; PCP Internal Medicine; Visit Provider Family Medicine
DX: T81.718A Complication of other artery following a procedure, not elsewhere classified, initial encounter (principal); I82.401 Acute embolism and thrombosis of unspecified deep veins of right lower extremity; I26.93 Single subsegmental thrombotic pulmonary embolism without acute cor pulmonale; D64.9 Anemia, unspecified; I10 Essential (primary) hypertension; I65.23 Occlusion and stenosis of bilateral carotid arteries; F32.A Depression, unspecified; Z68.31 Body mass index [BMI] 31.0-31.9, adult; I25.10 Atherosclerotic heart disease of native coronary artery without angina pectoris; E78.5 Hyperlipidemia, unspecified; K21.9 Gastro-esophageal reflux disease without esophagitis; G47.33 Obstructive sleep apnea (adult) (pediatric); F41.9 Anxiety disorder, unspecified; Y83.1 Surgical operation with implant of artificial internal device as the cause of abnormal reaction of the patient, or of later complication, without mention of misadventure at the time of the procedure; R09.02 Hypoxemia; N40.0 Benign prostatic hyperplasia without lower urinary tract symptoms; E66.811 Obesity, class 1; Z11.52 Encounter for screening for COVID-19; Z79.82 Long term (current) use of aspirin; Z79.01 Long term (current) use of anticoagulants; Z87.891 Personal history of nicotine dependence; Z96.651 Presence of right artificial knee joint
CPT/HCPCS: 36415; 71275; 80048; 80053; 83880; 84484; 85025; 87631; 93005; 94668; 97161; 97166; 99285; Q9967; A4216

== ENCOUNTER → 2024-05-10 | Outpatient (CLI) | payer MEDICARE, BC, SELFPAY ==
--- NOTE | 2024-05-10 12:51 | VDLE_ITS ---
Reason For Study: BLE Swelling RIGHT LEFT GSV is normal. GSV is normal. CFV is compressible, spontaneous, phasic, CFV is compressible, spontaneous, phasic, competent and demonstrates normal competent, and demonstrates normal augmentation. augmentation. FV is compressible, spontaneous, phasic, FV is compressible, spontaneous, phasic, competent and demonstrates normal competent and demonstrates normal augmentation. augmentation. POP V is compressible, spontaneous, phasic, POP V is compressible, spontaneous, phasic, competent and demonstrates normal competent and demonstrates normal augmentation. augmentation. T/P Trunk is compressible. T/P Trunk is compressible. PTV is compressible. PTV is compressible. RT PerV is compressible. LT PerV is compressible. Procedure This is a venous duplex using B-mode, color flow and spectral Doppler. Exam performed in department. The exam was diagnostic. A preliminary report was called and/or faxed to [facility] / Dr Dominguez. VL/Venous Duplex US - Oliver Extrem Interpretation Summary Deep veins of the bilateral lower extremities are patent and compressible segme ntally. There is no evidence of bilateral lower extremity deep vein thrombosis. The bilateral great saphenous veins appear patent and compressible segmentally. Ordering Physician: Samia Dominguez Referring Physician: Samia Dominguez Performed By: Nicolás Sprague RVT
[2024-05-10 14:09] LABS: Absolute Lymphocyte Count 1.52 X10^3/uL (0.83-4.51); Absolute Neutrophil Count 3.6 X10^3/uL (2.0-7.7); Basophil# 0.03 X10^3/uL; Basophil% 0.5 % (0-1); Eosinophil# 0.14 X10^3/uL; Eosinophils% 2.4 % (0-5); Hematocrit 40.7 % (40-54); Hemoglobin 13.5 g/dL (13.0-16.5); Lymphocyte # 1.52 X10^3/ul (0.83-4.51); Lymphocyte % 26.3 % (19-41); Mean Corp Hgb Conc 33.2 g/dL (32-36); Mean Corpuscular Volume 87.5 fL (80-94); Mean Platelet Vol. 9.4 fl (6.2-12.0); Monocyte# 0.51 X10^3/uL; Monocyte% 8.8 % (0-10); NRBC Flagged by Analyzer 0 % (0-5); Neutrophil # 3.56 X10^3/uL (2.7-7.7); Neutrophil % 61.8 % (47-70); Platelet Count 204 K/mm3 (150-450); RBC Distribution Width CV 13.2 % (11.6-14.6); RBC Distribution Width SD 42.1 fl (35.1-43.9); Red Blood Count 4.65 M/mm3 (4.6-6.2); White Blood Count 5.8 K/mm3 (4.4-11.0)
[2024-05-10 14:32] LABS: ALB/GLOB Ratio 0.9 RATIO (0.9-2.4); AST(SGOT) 17 U/L (15-37); Alanine Aminotransfer ALT/SGPT 26 U/L (16-61); Albumin, Serum 3.7 g/dL (3.2-5.0); Alkaline Phosphatase 94 U/L (45-117); Anion Gap 4 (5-15); BNP,B-Type NATRIURETIC PEPTIDE 13.8 pg/mL (0-100); BUN 21 mg/dL (7-18); BUN/Creat Ratio 19.8 RATIO (10-20); Calcium,Total 9.4 mg/dL (8.5-10.1); Chloride 110 mmol/L (98-107); Creatinine, Serum 1.06 mg/dL (0.70-1.30); EST Glomerular Filtration Rate 70 mL/min (>60); Est Glom Filt Rate - Afr Amer 85 mL/min (>60); Globulin 4.3 g/dL (2.2-4.2); Glucose 92 mg/dL (74-106); Potassium 3.8 mmol/L (3.5-5.1); Sodium Level 141 mmol/L (136-145)
== END | disposition home or self-care (01) ==
PROVIDERS: PCP Internal Medicine; Referring Provider Internal Medicine; Visit Provider Internal Medicine
DX: M79.89 Other specified soft tissue disorders (principal); R06.02 Shortness of breath
CPT/HCPCS: 36415; 80053; 83880; 85025; 93970

== ENCOUNTER → 2024-05-14 | Outpatient (CLI) | payer MEDICARE, BC, SELFPAY ==
--- NOTE | 2024-05-14 06:28 | ECHOD_ITS ---
Reason For Study: SOB Procedure This was a 2D Doppler, Color Flow transthoracic echocardiogram. Exam performed in department. Left Ventricle Normal size and thickness. The left ventricular ejection fraction is 60 %. Normal diastology for age. Right Ventricle Normal right ventricle. The RV free wall longitudinal strain was -25.2 % . Atria The left and right atria are normal. Mitral Valve Trivial mitral valve insufficiency. Tricuspid Valve Trivial tricuspid valve insufficiency. Normal pulmonary artery pressure. Aortic Valve Trisinus/trileaflet aortic valve. Mild (1+) aortic valve insufficiency. Pulmonic Valve Mild (1+) pulmonic valve insufficiency. Great Vessels Normal sized aortic root. Pericardium/Pleural No pericardial effusion. MMode/2D Measurements & Calculations LVIDd: 4.4 cm IVSd: 1.1 cm Ao root diam: 3.3 cm LVIDs: 2.5 cm LVPWd: 0.99 cm RVDd: 3.3 cm FS: 42.8 % LAV(MOD-bp): 46.7 ml LVAd ap4: 29.3 cm2 LVAd ap2: 25.7 cm2 LAV(MOD-bp) Indexed: 23.2 ml/m2 LVLd ap4: 8.1 cm LVLd ap2: 7.4 cm LAV(MOD-sp2): 41.6 ml EDV(MOD-sp4): 90.6 ml EDV(MOD-sp2): 74.0 ml LAV(MOD-sp4): 41.6 ml EDV(sp4-el): 90.2 ml EDV(sp2-el): 75.7 ml LVAs ap4: 17.5 cm2 LVAs ap2: 15.8 cm2 LVLs ap4: 7.1 cm LVLs ap2: 7.1 cm ESV(MOD-sp4): 36.6 ml ESV(MOD-sp2): 29.3 ml ESV(sp4-el): 36.6 ml ESV(sp2-el): 29.8 ml EF(MOD-sp4): 59.6 % EF(MOD-sp2): 60.4 % EF(sp4-el): 59.4 % SV(MOD-sp4): 54.0 ml SV(MOD-sp2): 44.6 ml SV(sp4-el): 53.5 ml SI(MOD-sp4): 26.9 ml/m2 SI(MOD-sp2): 22.2 ml/m2 LA A4 area: 15.6 cm2 LA dimension(2D): 3.3 cm RA A4 area: 12.5 cm2 TAPSE: 2.0 cm Time Measurements MV dec time: 0.22 sec Doppler Measurements & Calculations MV E max germán: 91.5 cm/sec Lat Peak E' Germán: 5.2 cm/sec Med Peak E' Germán: 5.1 cm/sec MV A max germán: 124.9 cm/sec E/E' lat: 17.7 E/E' med: 18.0 MV E/A: 0.73 Ao V2 max: 124.9 cm/sec AI max germán: 330.0 cm/sec MV dec slope: 418.5 cm/sec2 Ao max P.2 mmHg AI max P.6 mmHg Ao V2 mean: 90.5 cm/sec Ao mean P.6 mmHg AI dec slope: 185.2 cm/sec2 Ao V2 VTI: 28.9 cm AI P1/2t: 521.9 msec AV (velocity ratio): 0.81 LV V1 max: 98.1 cm/sec PA V2 max: 94.9 cm/sec TR max germán: 229.9 cm/sec LV V1 max P.8 mmHg TR max P.1 mmHg LV V1 mean P.2 mmHg LV V1 mean: 69.3 cm/sec LV V1 VTI: 23.5 cm ECHO/Echo Complete Interpretation Summary The left ventricular ejection fraction is 60 %. Mild (1+) pulmonic valve insufficiency. Mild (1+) aortic valve insufficiency. Ordering Physician: Samia Dominguez Referring Physician: Samia Dominguez Performed By: Saida Denise RDCS
--- NOTE | 2024-05-14 08:49 | STRESSREP_ITS ---
Stress Test Report Date: 05/14/2024 Procedure: Exercise tolerance test/imaging study Indications: Coronary artery disease Consent: Per the patient Procedure: The patient exercised on a Raymond protocol for 4 minutes achieving a peak heart rate of 105 bpm (80% predicted maximal heart rate) with a peak blood pressure 144/72 mmHg and a peak MET capacity of 6.9 METs. The baseline ECG demonstrated sinus rhythm. The peak exercise ECG demonstrated no ischemic changes. Rare PVC noted. The functional capacity was considered average for age. There was complaint of mild chest pressure with exercise. The examination was discontinued secondary to dyspnea and fatigue. The patient was injected with 13.5 mCi of technetium 99m Cardiolite and subseq uently rest SPECT Cardiolite nuclear imaging was obtained in the horizontal long, vertical long, and short axis views. Post-exercise, the patient was injected with 40.6 mCi of technetium 99m Cardiolite and subsequently stress SPECT Cardiolite nuclear imaging was obtained in the horizontal long, vertical long, and short axis views. A gated Cardiolite study at peak stress was obtained. Rest and stress SPECT Cardiolite nuclear imaging status post realignment, normalization, and attenuation correction, demonstrates the appearance of relative uniform tracer uptake and myocardial perfusion appearing within normal limits. There is end systolic thickening and brightening. The gated Cardiolite study demonstrates myocardial thickening and inward wall motion. The reported LVEF is 66%. Impression: 1. Technically adequate exercise tolerance test at 80% maximal age-predicted heart rate. 2. Peak exercise ECG with no ischemic changes. Mild chest pressure reported with exercise. 3. Rare PVC noted 4. Rest and stress SPECT Cardiolite nuclear imaging demonstrate relative uniform tracer uptake and myocardial perfusion appearing within normal limits. 5. The gated Cardiolite study reports an LVEF of 66%. This note was generated with [employer] software. It may contain incorrect words, spelling, and punctuation that were not noted in checking the note before signing.
== END | disposition home or self-care (01) ==
LOC: CVS 06:28
PROVIDERS: PCP Internal Medicine; Referring Provider Internal Medicine; Visit Provider Internal Medicine
DX: R06.02 Shortness of breath (principal)
CPT/HCPCS: 78452; 93017; 93306; A9500; A4216

== ENCOUNTER → 2024-05-21 | Outpatient (CLI) | payer MEDICARE, BC, SELFPAY ==
--- NOTE | 2024-05-21 06:56 | CT_ITS ---
INDICATION: other acute pulmonary embolism EXAMINATION: CTA Chest WO/W Contrast Injection TECHNIQUE: Helically acquired images were obtained of the chest following administration of IV contrast. A radiation dose optimization technique was used for this scan. 3D postprocessing images including MIPS were reviewed. IV Contrast dosage and agent: IV 100mL [id number] COMPARISON: 02/01/2024. FINDINGS: Lungs: Unremarkable Mediastinum: The heart is mildly enlarged. Trace pericardial effusion. No mediastinal, hilar or axillary adenopathy. Mild aortic arch and coronary artery calcifications. No obvious filling defect seen within the visualized pulmonary arteries. Pleura: Unremarkable Bones/Soft tissues: There are diffuse degenerative changes of the spine. Upper abdomen: Hiatal hernia. CT/CTA Chest W/WO Contrast IMPRESSION: No acute abnormalities in the chest. Specifically, no evidence of acute pulmonary emboli to the segmental level. Trace pericardial effusion. Hiatal hernia. Electronically Signed: Jesus Hankins MD at 0:41 EST ,
== END | disposition home or self-care (01) ==
LOC: CT 06:55
PROVIDERS: PCP Internal Medicine; Referring Provider Internal Medicine; Visit Provider Internal Medicine
DX: I26.99 Other pulmonary embolism without acute cor pulmonale (principal)
CPT/HCPCS: 71275; Q9967

== ENCOUNTER → 2024-07-08 | Outpatient (CLI) | payer MEDICARE, BC, SELFPAY ==
[2024-07-08 13:03] LABS: SERUM TEARS COLLECTION SPECIMEN PROCESSED
== END | disposition home or self-care (01) ==
PROVIDERS: PCP Internal Medicine; Referring Provider Ophthalmology; Visit Provider Ophthalmology
DX: H04.123 Dry eye syndrome of bilateral lacrimal glands (principal)

== ENCOUNTER → 2024-08-24 | Outpatient (CLI) | payer MEDICARE, BC, SELFPAY | END | disposition home or self-care (01) | LOC: SL 10:18 | PROVIDERS: PCP Internal Medicine; Referring Provider Nurse Practitioner Family; Visit Provider Nurse Practitioner Family | DX: G47.33 Obstructive sleep apnea (adult) (pediatric) (principal) | CPT/HCPCS: 94762 ==

== ENCOUNTER → 2024-11-01 | Outpatient (CLI) | payer MEDICARE, BC, SELFPAY ==
[2024-11-01 16:23] LABS: Hematocrit 42.1 % (40-54); Hemoglobin 14.2 g/dL (13.0-16.5); Immature Granulocytes Count 0.020 X10^3/uL (0.0-0.0); Mean Corp Hgb Conc 33.7 g/dL (32-36); Mean Corpuscular Volume 91.1 fL (80-94); Mean Platelet Vol. 9.4 fl (6.2-12.0); NRBC Flagged by Analyzer 0 % (0-5); Platelet Count 160 K/mm3 (150-450); RBC Distribution Width CV 13.2 % (11.6-14.6); RBC Distribution Width SD 43.7 fl (35.1-43.9); Red Blood Count 4.62 M/mm3 (4.6-6.2); White Blood Count 7.0 K/mm3 (4.4-11.0)
[2024-11-01 16:45] LABS: D-Dimer Quantitative (DVT/PE) 0.31 FEU/ug/m (0.27-0.49)
[2024-11-01 17:14] LABS: CPK Total, Creatine Kinase 75 U/L (24-195); Troponin T High Sensitivity 15 ng/L (<=22)
== END | disposition home or self-care (01) ==
PROVIDERS: PCP Internal Medicine; Referring Provider Internal Medicine; Visit Provider Internal Medicine
DX: I10 Essential (primary) hypertension (principal)
CPT/HCPCS: 36415; 82550; 84484; 85025; 85379

== ENCOUNTER → 2024-11-05 | Outpatient (CLI) | payer MEDICARE, BC, SELFPAY ==
--- NOTE | 2024-11-05 12:43 | CDU_ITS ---
Reason For Study Reason For Study: Bilateral carotid stenosis Rt. Velocities/BP Lt. Velocities/BP Prox CCA 81.5/6.9 cm/sec. Prox CCA 116.8/5.8 cm/sec. Mid CCA 80.6/9.7 cm/sec. Mid CCA 93.8/5.8 cm/sec. Dist CCA 65.5/6.9 cm/sec. Dist CCA 102.5/6.9 cm/sec. Prox ICA 64.2/12.6 cm/sec. Prox ICA 67.4/7.8 cm/sec. Mid ICA 124.7/17 cm/sec. Mid ICA 115.1/14.9 cm/sec. Dist ICA 113.8/17 cm/sec. Dist ICA 75.4/13.3 cm/sec. Rt. ICA/CCA = 1.55. Lt. ICA/CCA = 1.23. Prox ECA 101.1 cm/sec. Prox ECA 122.9/10.4 cm/sec. Rt. Vert. 64.1/10.2 cm/sec. Lt. Vert. 64.5/11.6 cm/sec. Right Extracranial There is heterogeneous, irregular atherosclerotic plaque noted in the right common carotid artery. There is heterogeneous, irregular atherosclerotic plaque noted in the right internal carotid artery. The right internal carotid artery is very tortuous. There is heterogeneous, irregular atherosclerotic plaque noted in the right external carotid artery. Antegrade flow is noted in the right vertebral artery. Left Extracranial There is homogeneous, smooth atherosclerotic plaque noted in the left common carotid artery. There is heterogeneous, irregular atherosclerotic plaque noted in the left internal carotid artery. The left internal carotid artery is very tortuous. There is intimal thickening but no significant atherosclerotic plaque noted in the left external carotid artery. Antegrade flow is noted in the left vertebral artery. Procedure Carotid Duplex 21856. This is a Carotid Duplex examination using B-mode, color flow and specral Doppler. Exam performed in department. VL/Carotid Duplex Ultrasound Interpretation Summary Mild (<50%) stenosis right extracranial internal carotid. Mild (<50%) stenosis left extracranial internal carotid. Patent and antegrade vertebrals bilaterally. Ordering Physician: aSmia Dominguez Referring Physician: Samia Dominguez Performed By: Mel Mckeon RVT
== END | disposition home or self-care (01) ==
LOC: CVS 12:43
PROVIDERS: PCP Internal Medicine; Referring Provider Internal Medicine; Visit Provider Internal Medicine
DX: I65.23 Occlusion and stenosis of bilateral carotid arteries (principal)
CPT/HCPCS: 93880

== ENCOUNTER → 2024-12-24 | Outpatient (CLI) | payer MEDICARE, BC, SELFPAY ==
[2024-12-24 13:51] LABS: Color, Urine Yellow (Yellow); Glucose, Dipstick Normal (Normal); Ketone-Dipstick Negative (Negative); Leukocyte Esterase-Dipstick 100 /ul (Negative); Nitrite-Dipstick Negative (Negative); Occult Blood-Urine Negative /ul (Negative); Protein-Dipstick 30 mg/dl (Negative); Specific Gravity, Urine 1.015 (1.002-1.030); Urine Bilirubin Dipstick Negative (Negative)
[2024-12-24 14:19] LABS: AST(SGOT) 20 U/L (<=37); Alanine Aminotransfer ALT/SGPT 20 U/L (<=46); Albumin, Serum 4.4 g/dL (3.4-4.8); Alkaline Phosphatase 72 U/L (40-129); Anion Gap 10 (5-15); BUN 19 mg/dL (4-19); BUN/Creat Ratio 19.0 RATIO (10-20); Calcium,Total 9.5 mg/dL (7.6-11.0); Carbon Dioxide 27.9 mmol/L (21.0-32.0); Chloride 99 mmol/L (98-108); Globulin 3.0 g/dL (2.2-4.2); Glucose 100 mg/dL (70-99); Potassium 4.2 mmol/L (3.3-5.1)
[2024-12-24 16:08] LABS: Creatinine, Urine (random) 202.00 mg/dL (39.00-259.00); Microalbumin,Random Urine 21.0 mg/L (<20 mg/L)
[2024-12-29 03:07] LABS: PSA, Total 1.5 ng/mL (0.0-4.0)
== END | disposition home or self-care (01) ==
PROVIDERS: PCP Internal Medicine; Referring Provider Internal Medicine; Visit Provider Internal Medicine
DX: I10 Essential (primary) hypertension (principal); Z12.5 Encounter for screening for malignant neoplasm of prostate
CPT/HCPCS: 80053; 81002; 82043; 82570; 84153

== ENCOUNTER → 2025-01-18 | Outpatient (CLI) | payer MEDICARE, BC, SELFPAY ==
--- NOTE | 2025-01-18 12:00 | RAD_ITS ---
PROCEDURE: CHEST PA AND LATERAL 01/18/2025 REASON FOR EXAM: SOB TECHNIQUE: Procedure Code: RADCXR Modality: DX Procedure: CHEST PA AND LATERAL COMPARISON: 04/01/2024 FINDINGS: No focal consolidation. No pleural effusion or pneumothorax. Cardiac silhouette is within normal limits. Calcified aortic arch. No acute fractures. Left shoulder prosthesis. RAD/Chest PA and Lateral IMPRESSION: No focal consolidations. Reading Location: [id number]
[2025-01-18 13:02] LABS: Hematocrit 37.5 % (40-54); Hemoglobin 12.7 g/dL (13.0-16.5); Immature Granulocytes Count 0.010 X10^3/uL (0.0-0.0); Mean Corp Hgb Conc 33.9 g/dL (32-36); Mean Corpuscular Volume 90.8 fL (80-94); Mean Platelet Vol. 9.6 fl (6.2-12.0); NRBC Flagged by Analyzer 0 % (0-5); Platelet Count 169 K/mm3 (150-450); RBC Distribution Width CV 12.5 % (11.6-14.6); RBC Distribution Width SD 41.2 fl (35.1-43.9); Red Blood Count 4.13 M/mm3 (4.6-6.2); White Blood Count 5.1 K/mm3 (4.4-11.0)
[2025-01-18 14:26] LABS: AST(SGOT) 21 U/L (<=37); Alanine Aminotransfer ALT/SGPT 15 U/L (<=46); Albumin, Serum 4.0 g/dL (3.4-4.8); Alkaline Phosphatase 64 U/L (40-129); Anion Gap 12 (5-15); BUN 17 mg/dL (4-19); BUN/Creat Ratio 19.1 RATIO (10-20); Calcium,Total 9.4 mg/dL (7.6-11.0); Carbon Dioxide 23.8 mmol/L (21.0-32.0); Chloride 101 mmol/L (98-108); Globulin 3.1 g/dL (2.2-4.2); Glucose 95 mg/dL (70-99); Potassium 4.3 mmol/L (3.3-5.1); Pro- Brain NATRIURETIC PEPTIDE 93 pg/mL (<=1800)
== END | disposition home or self-care (01) ==
PROVIDERS: PCP Internal Medicine; Referring Provider Nurse Practitioner Family; Visit Provider Nurse Practitioner Family
DX: R06.00 Dyspnea, unspecified (principal)
CPT/HCPCS: 36415; 71046; 80053; 83880; 85025